=== PATIENT | male | born 1960 | race Caucasian/White ===

== ENCOUNTER 2022-01-02 09:33 | Outpatient (CLI) | payer BC, SELFPAY ==
--- NOTE | 2022-01-02 | ECG_ITS ---
[facility] Test Date: 2022-01-02 Pat Name: Colin Moya Department: Room: Gender: Male Real Time Analyst: : 1960 Requested By: Francis Elmore Order Number: [id number] Moore MD: Terese Bustillos M.D. Interpretive Statements NAME OF STUDY: LEXISCAN SESTAMIBI STRESS TEST INDICATION: AFIB/DYSPNEA, PROCEDURE: At the baseline, the EKG revealed normal sinus rhythm with some nonspecific T wave changes. The baseline heart was 62 bpm with a blood pressue of 156/91 mm of Hg Lexiscan was infused over a period of 20 seconds. A total of 0.4 milligrams of Lexiscan was infused. The stress phase was continued for a total of 5 minutes. Heart rate at the end of the stress phase was 81 bpm with a blood pressure 143/81 mm of Hg. The EKG at the peak infusion revealed no significant changes. Sestamibi was injected 20 seconds after the Lexiscan infusion. Heart rate at the end of the recovery phase was 76 bpm with a blood pressure of 131/91 mm of Hg. CONCLUSION: 1. No significant EKG changes with the LexiScan infusion 2. No LexiScan induced chest pain or cardiac arrhythmia 3. Normal blood pressure and heart rate response 4. Sestamibi/sestamibi perfusion scan pending; see separate report. Electronically Signed On 01-10-2022 7:31:38 CDT by Terese Bustillos M.D. [id number]
--- NOTE | 2022-01-02 09:56 | NMCV_ITS ---
NM andria perf SPECT r/s* [id number] Colin Moya Age: 61 Gender: M : 1960 Exam Date: 01/02/2022 09:56 Ordering Phys: Francis Elmore Technologist: MILTON Espinal Exam Location: [facility] Indications: LABILE BLOOD PRESSURE STRESS TEST Please see separate stress test report in Eph[facility]any for full findings IMAGE PROTOCOL Rest/Stress 1 Lexiscan Day Radiopharmaceutical Dose (mCi) Administration Site Administered by Rest: Tc-99m 10.8 IV MILTON Huynh Sestamibi Stress:Tc-99m 32.4 IV MILTON Huynh Sestamibi Rest: 02-Jan-2022 60 Discovery 630 Stress: 02-Jan-2022 30 Discovery 630 0.4mg Lexiscan. Images obtained in supine and prone position. SPECT RESULTS Technical Quality: Excellent Raw Data Analysis: Normal Image Corrections: No attenuation or motion correction applied Summed Stress Score: 1 Summed Rest Score: 1 Summed Difference Score: 0 PERFUSION FINDINGS Small area of slightly decreased tracer uptake was noted in the mid anteroseptal region. No significant reversibility was noted in this area. FUNCTIONAL RESULTS (calculated via Gated SPECT) Stress Image LV EF (%): 65 Stress EDV (mL):153 TID: 1.05 Stress ESV (mL):53 FUNCTIONAL FINDINGS: Segmental wall motion analysis revealing no gross wall motion abnormalities IMPRESSIONS 1. Small area of slightly decreased persistent tracer uptake in the mid anteroseptal region suggestive of medical scarring versus atresia artifact. 2. Normal left ventricular ejection fraction of 65%. 3. LV wall motion analysis revealing no gross wall motion abnormalities. 4. Normal LV volume. Low probability for coronary ischemia, based on the above findings Dr Terese Bustillos MD [facility] (Electronically Signed) Final Date: 02 January 2022 17:45 S
[2022-01-02 10:32] VITALS: BMI 33.5
[2022-01-02] MEDS: regadenoson 0.4 Mg/5 ml Syringe IVP (11:55)
[2022-01-02 12:23] VITALS: BP 158/87; PULSE 76
== END 2022-01-02 09:34 | disposition home or self-care (01) ==
PROVIDERS: PCP Family Medicine; Visit Provider Family Medicine
DX: I48.91 Unspecified atrial fibrillation (principal); R06.09 Other forms of dyspnea; R94.39 Abnormal result of other cardiovascular function study
CPT/HCPCS: 78452; 93017; A9500; J2785

== ENCOUNTER → 2022-01-14 15:48 | Outpatient (BNVA) | payer BC, SELFPAY | PROVIDERS: PCP Family Medicine; Visit Provider Internal Medicine Cardiovascular Disease | DX: I48.0 Paroxysmal atrial fibrillation (principal); R06.00 Dyspnea, unspecified; R07.89 Other chest pain; R55 Syncope and collapse; E78.5 Hyperlipidemia, unspecified | CPT/HCPCS: 80048; 85025 ==

== ENCOUNTER 2022-03-09 16:11 | Observation (INO) | payer BC, SELFPAY ==
[2022-03-09] VITALS (36 sets, daily range): BP systolic 103–158; BP diastolic 79–116; PULSE 88–163; RESP 16–34; TEMP 36.8–37.4; O2SAT 84–95
--- NOTE | 2022-03-09 16:26 | ECG_ITS ---
[facility] Test Date: 2022-03-09 Pat Name: Colin Moya Department: Room: Gender: Male Tube Splicer: : 1960 Requested By: Antelmo Tinoco Order Number: [id number] Moore MD: Terese Bustillos M.D. Measurements Intervals [place] Rate: 141 P: 0 IA: 0 QRS: 67 QRSD: 117 T: 58 QT: 328 QTc: 503 Interpretive Statements ATRIAL FIBRILLATION WITH RAPID VENTRICULAR RESPONSE MODERATE INTRAVENTRICULAR CONDUCTION DELAY [110+ ms QRS DURATION] ABNORMAL RHYTHM ECG INTERPRETATION BASED ON A DEFAULT AGE OF 40 YEARS No previous ECG available for comparison Electronically Signed On 03-09-2022 20:20:05 INSPECTOR GENERAL by Terese Bustillos M.D. [id number] f
--- NOTE | 2022-03-09 16:41 | XRR_ITS ---
PROCEDURE INFORMATION: Exam: XR Chest Exam date and time: 03/09/2022 4:49 PM Age: 62 years old Clinical indication: Angina; Additional info: Cp TECHNIQUE: Imaging protocol: Radiologic exam of the chest. Views: 1 view. COMPARISON: No relevant prior studies available. FINDINGS: Lungs: There is vascular congestion in the right perihilar region. Low lung volumes are seen No consolidation. Pleural spaces: Unremarkable. No pleural effusion. No pneumothorax. Heart/Mediastinum: Unremarkable. No cardiomegaly. Bones/joints: Unremarkable. XR/XR chest 1V portable [id number] IMPRESSION: No acute findings.
--- NOTE | 2022-03-09 16:43 | W.ED.CHESTPA ---
Documented by User: Antelmo Tinoco DO 03/09/22 17:56 HPI - Chest Pain General: Chief Complaint: Chest Pain Stated Complaint: SOB, chest pressure Time Seen by Provider: 03/09/22 16:31 Source: patient and family Mode of arrival: ambulatory Limitations: no limitations History of Present Illness: This patient presents to the emergency department because of palpitations with chest pressure is been present for several days. He states he has a known history of atrial fibrillation and has been taking his medication faithfully but is had influenza about a week or more ago prior to his onset of his current symptoms he thinks may have triggered his episodes he is experiencing now. He has been taking his amlodipine atenolol and apixaban as prescribed. He has no known history of cardiovascular disease other than atrial fibrillation. Never had a heart attack, heart failure etc. He does chew tobacco and occasionally drinks alcohol. No other significant past medical history. He is not having currently had any fevers or productive cough etc. His symptoms exacerbate his feeling fatigued and short of breath with greater than normal activity. Associated symptoms: Reports dyspnea and palpitations; Deny abdominal pain, fever(s), nausea, syncope or vomiting Review of Systems Const: Denies: fever(s) or chills Eyes: Denies: change in vision ENMT: Denies: odynophagia, nasal discharge or nasal congestion Card: Reports: palpitations and irregular heart rhythm; Denies: syncope or pre-syncope Resp: Reports: dyspnea; Denies: productive cough or non-productive cough GI: Denies: abdominal pain, nausea or vomiting : Denies: flank pain, difficulty urinating or dysuria Musc: Denies: neck pain, back pain or extremity pain Skin/Breast: Denies: rash Neuro: Denies: headache(s), numbness in extremities or weakness in extremities Psych: Denies: anxiety Endo: Denies: polyuria or polydipsia PFSH ED PFSH: Medical History Allergic rhinitis Chest discomfort Dizziness Dyspnea Exercise intolerance Hyperlipidemia Hypertension Labile blood pressure GIA on CPAP Paroxysmal atrial fibrillation Postherpetic neuralgia Shingles SOBOE (shortness of breath on exertion) Tobacco use Surgical History No history of previous surgery Family History Father CAD (coronary artery disease) Stroke, Onset Age: 35 Grandmother Cancer Mother Stroke Sister Stroke Denies family history of Diabetes Clotting disorder Dementia Chronic kidney disease (CKD) Suicide Anesthesia complication Bleeding disorder Lung disease Social History Smoking and tobacco status: current every day smoker (smokeless tobacco) smokeless tobacco Alcohol intake: current Alcohol intake frequency: few times a month Physical Exam Narrative: EXAM NARRATIVE: He is alert and comfortable in no acute distress answers questions in a goal-directed fashion. Const: COMMON NORMALS: no acute distress, average body habitus and patient oriented x3 GENERAL APPEARANCE: cooperative and comfortable HENMT: COMMON NORMALS: normocephalic, Normal nasal mucous membranes and turbinates present, moist oral mucous membranes and oropharynx normal HEAD & SCALP: normocephalic NOSE: Normal nasal mucous membranes and turbinates present Eye: COMMON NORMALS: Equal, round and reactive pupils present, EOMs intact bilaterally and conjunctivae normal CONJUNCTIVA: Yes conjunctivae normal PUPIL: Yes Equal, round and reactive pupils present Neck/C-Spine: COMMON NORMALS: full ROM, no lymphadenopathy, Thyroid normal and No carotid bruits THYROID: Thyroid normal Chest: COMMONS NORMALS: normal inspection of the chest and normal palpation of entire chest wall Resp: COMMON NORMALS: normal respiratory effort, No use of accessory muscles and clear to auscultation bilaterally AUSCULTATION: clear to auscultation bilaterally Cardio: COMMON NORMALS: No murmurs present (Cardio) and Peripheral pulses 2+ throughout RATE: tachycardic RHYTHM: abnormal rhythm irregularly irregular PERIPHERAL PULSES: Peripheral pulses 2+ throughout GI: COMMON NORMALS: Normal to inspection, nondistended, normoactive bowel sounds present, Soft to palpation and non-tender PALPATION: Yes Soft to palpation : COMMON NORMALS: Yes no CVA tenderness BLADDER/KIDNEY EXAM: Yes no CVA tenderness Back/Pelvis: COMMON NORMALS: no CVA tenderness, thoracic and lumbar spine normal to inspection, no thoracic nor lumbar tenderness, thoraco-lumbar ROM normal and straight leg raise negative bilaterally Extremity: COMMON NORMALS: normal to inspection, full ROM, capillary refill normal, no calf tenderness and no pedal edema Neuro: COMMON NORMALS: patient oriented x3, moves all extremities, no focal motor deficits, no sensory deficits noted and gait normal Psych: COMMON NORMALS: mental status grossly normal Skin: COMMON NORMALS: no rashes or lesions noted, no wounds and turgor normal GENERAL SKIN EXAM: no rashes or lesions noted and turgor normal Course Reevaluation(s): Reevaluation #1: Patient was given magnesium followed by diltiazem which achieve better rate control. Still awaiting other ancillary studies. Has evidence of mild pulmonary congestion on chest x-ray likely related to his continued atrial fibrillation however BNP and other ancillary studies still pending. Will be checked out to the overnight emergency department physician for further evaluation and disposition. Time: 17:44 Vital Signs: Vital signs: Vital Signs Temperature 98.6 F 03/09/22 16:23 Pulse Rate 127 H 03/09/22 18:45 Respiratory Rate 21 H 03/09/22 18:45 Blood Pressure 150/116 03/09/22 18:45 Pulse Oximetry 84 L 03/09/22 18:45 Oxygen Delivery Me thod 03/09/22 16:23 MDM - Chest Pain Medical Decision Making Patient with a history of chronic atrial fibrillation on appropriate anticoagulation for stroke risk reduction who had a recent illness which may have precipitated a prolonged episode of rapid ventricular response. Medical Records I reviewed the patient's medical records. Lab Data 03/09/22 17:10 03/09/22 17:10 Radiology Impressions Chest X-Ray 03/09/22 16:41 IMPRESSION: No acute findings. Chest CTA 03/09/22 18:04 IMPRESSION: 1. Negative for pulmonary embolism. 2. Intrathoracic fluid overload changes. Congestive heart failure features are suspected. Right lung pneumonia cannot be excluded. Laboratory Results WBC 4.6 10^3/uL (4.0-10.0) 03/09/22 17:10 RBC 4.76 10^6/uL (4.1-5.3) 03/09/22 17:10 Hgb 14.1 g/dL (11.7-16.6) 03/09/22 17:10 Hct 41.7 % (42.0-52.0) L 03/09/22 17:10 MCV 87.6 fl (80-94) 03/09/22 17:10 MCH 29.6 pg (28.0-34.0) 03/09/22 17:10 MCHC 33.8 g/dL (30.0-36.0) 03/09/22 17:10 RDW 13.0 % (12.1-15.1) 03/09/22 17:10 Plt Count 309 10^3/cmm (130-400) 03/09/22 17:10 MPV 10.1 fL (7.4-10.4) 03/09/22 17:10 Neut % (Auto) 54.3 % 03/09/22 17:10 Lymph % (Auto) 33.0 % 03/09/22 17:10 Marion % (Auto) 8.6 % 03/09/22 17:10 Eos % (Auto) 2.4 % 03/09/22 17:10 Baso % (Auto) 1.1 % 03/09/22 17:10 Neut # (Auto) 2.51 10^3/uL (1.8-7.7) 03/09/22 17:10 Lymph # (Auto) 1.5 10^3/uL (0.8-4.8) 03/09/22 17:10 Marion # (Auto) 0.4 10^3/uL (0.2-0.9) 03/09/22 17:10 Eos # (Auto) 0.1 10^3/uL (0.0-0.8) 03/09/22 17:10 Baso # (Auto) 0.1 10^3/uL (0.0-0.1) 03/09/22 17:10 Nucleated RBC % (auto) 0 % 03/09/22 17:10 Nucleated RBCs # 0.0 /100WBC 03/09/22 17:10 D-Dimer 0.95 ug/mIFEU (0-0.59) H 03/09/22 17:10 Sodium 134 mmol/L (136-145) L 03/09/22 17:10 Potassium 3.6 mmol/L (3.5-5.1) 03/09/22 17:10 Chloride 99 mmol/L (98-107) 03/09/22 17:10 Carbon Dioxide 23 mmol/L (22-29) 03/09/22 17:10 Anion Gap 15.6 (5-19) 03/09/22 17:10 BUN 20 mg/dL (8-23) 03/09/22 17:10 Creatinine 0.9 mg/dL (0.7-1.2) 03/09/22 17:10 GFR Calculation 85.8 mL/min (90-130) L 03/09/22 17:10 Glucose 114 mg/dL (65-115) 03/09/22 17:10 Calculated Osmolality 281 mOsm/kg (285-295) L 03/09/22 17:10 Calcium 9.9 mg/dL (8.5-10.5) 03/09/22 17:10 Magnesium 1.8 mg/dL (1.7-2.3) 03/09/22 17:10 Total Bilirubin 0.9 mg/dL (0.15-1.2) 03/09/22 17:10 AST 22 U/L (0-40) 03/09/22 17:10 ALT 36 U/L (0-41) 03/09/22 17:10 Alkaline Phosphatase 100 U/L (40-130) 03/09/22 17:10 Troponin T Gen 5 ng/L 7 ng/L (0-15) 03/09/22 17:10 NT-Pro-B Natriuret Pep 4198 pg/mL (0-125) H 03/09/22 17:10 Total Protein 7.1 g/dL (6.6-8.7) 03/09/22 17:10 Albumin 4.2 g/dL (3.5-5.2) 03/09/22 17:10 Globulin 2.9 g/dL (1.3-4.6) 03/09/22 17:10 TSH 1.66 uIU/mL (0.27-4.20) 03/09/22 17:10 EKG Data EKG 1: I personally reviewed and interpreted this EKG as follows: Interpretation: Contemporaneous EKG review reveals a ventricular rate of 141 bpm. Consistent with atrial fibrillation with rapid ventricular response. No abnormal ST-T wave segments noted at this time. Discharge Plan Discharge Patient Disposition: Admitted As Inpatient Clinical Impression: Atrial fibrillation with rapid ventricular response, Acute exacerbation of CHF (congestive heart failure) Condition: Stable Coding Level of Care Code ED Offset Duplicating Machine Operator for Chg Fwd Exam Comprehensive Documented by User: Anita Sena MD 03/09/22 20:07 HPI - Chest Pain General: Chief Complaint: Chest Pain Stated Complaint: SOB, chest pressure Time Seen by Provider: 03/09/22 16:31 PFS ED PFSH: Medical History Allergic rhinitis Chest discomfort Dizziness Dyspnea Exercise intolerance Hyperlipidemia Hypertension Labile blood pressure GIA on CPAP Paroxysmal atrial fibrillation Postherpetic neuralgia Shingles SOBOE (shortness of breath on exertion) Tobacco use Surgical History No history of previous surgery Family History Father CAD (coronary artery disease) Stroke, Onset Age: 35 Grandmother Cancer Mother Stroke Sister Stroke Denies family history of Diabetes Clotting disorder Dementia Chronic kidney disease (CKD) Suicide Anesthesia complication Bleeding disorder Lung disease Social History Smoking and tobacco status: current every day smoker (smokeless tobacco) smokeless tobacco Alcohol intake: current Alcohol intake frequency: few times a month Course Vital Signs: Vital signs: Vital Signs Temperature 98.6 F 03/09/22 16:23 Pulse Rate 127 H 03/09/22 18:45 Respiratory Rate 21 H 03/09/22 18:45 Blood Pressure 150/116 03/09/22 18:45 Pulse Oximetry 84 L 03/09/22 18:45 Oxygen Delivery Me thod 03/09/22 16:23 MDM - Chest Pain Medical Decision Making Patient with a history of chronic atrial fibrillation on appropriate anticoagulation for stroke risk reduction who had a recent illness which may have precipitated a prolonged episode of rapid ventricular response. Patient presents here with dyspnea he is in congestive heart failure he has been hypoxic here he is also in A. fib with RVR his heart rate went back up in the 140s start him on a Cardizem drip spoke to hospitalist will admit this time. Lab Data 03/09/22 17:10 03/09/22 17:10 Radiology Impressions Chest X-Ray 03/09/22 16:41 IMPRESSION: No acute findings. Chest CTA 03/09/22 18:04 IMPRESSION: 1. Negative for pulmonary embolism. 2. Intrathoracic fluid overload changes. Congestive heart failure features are suspected. Right lung pneumonia cannot be excluded. Laboratory Results WBC 4.6 10^3/uL (4.0-10.0) 03/09/22 17:10 RBC 4.76 10^6/uL (4.1-5.3) 03/09/22 17:10 Hgb 14.1 g/dL (11.7-16.6) 03/09/22 17:10 Hct 41.7 % (42.0-52.0) L 03/09/22 17:10 MCV 87.6 fl (80-94) 03/09/22 17:10 MCH 29.6 pg (28.0-34.0) 03/09/22 17:10 MCHC 33.8 g/dL (30.0-36.0) 03/09/22 17:10 RDW 13.0 % (12.1-15.1) 03/09/22 17:10 Plt Count 309 10^3/cmm (130-400) 03/09/22 17:10 MPV 10.1 fL (7.4-10.4) 03/09/22 17:10 Neut % (Auto) 54.3 % 03/09/22 17:10 Lymph % (Auto) 33.0 % 03/09/22 17:10 Marion % (Auto) 8.6 % 03/09/22 17:10 Eos % (Auto) 2.4 % 03/09/22 17:10 Baso % (Auto) 1.1 % 03/09/22 17:10 Neut # (Auto) 2.51 10^3/uL (1.8-7.7) 03/09/22 17:10 Lymph # (Auto) 1.5 10^3/uL (0.8-4.8) 03/09/22 17:10 Marion # (Auto) 0.4 10^3/uL (0.2-0.9) 03/09/22 17:10 Eos # (Auto) 0.1 10^3/uL (0.0-0.8) 03/09/22 17:10 Baso # (Auto) 0.1 10^3/uL (0.0-0.1) 03/09/22 17:10 Nucleated RBC % (auto) 0 % 03/09/22 17:10 Nucleated RBCs # 0.0 /100WBC 03/09/22 17:10 D-Dimer 0.95 ug/mIFEU (0-0.59) H 03/09/22 17:10 Sodium 134 mmol/L (136-145) L 03/09/22 17:10 Potassium 3.6 mmol/L (3.5-5.1) 03/09/22 17:10 Chloride 99 mmol/L (98-107) 03/09/22 17:10 Carbon Dioxide 23 mmol/L (22-29) 03/09/22 17:10 Anion Gap 15.6 (5-19) 03/09/22 17:10 BUN 20 mg/dL (8-23) 03/09/22 17:10 Creatinine 0.9 mg/dL (0.7-1.2) 03/09/22 17:10 GFR Calculation 85.8 mL/min (90-130) L 03/09/22 17:10 Glucose 114 mg/dL (65-115) 03/09/22 17:10 Calculated Osmolality 281 mOsm/kg (285-295) L 03/09/22 17:10 Calcium 9.9 mg/dL (8.5-10.5) 03/09/22 17:10 Magnesium 1.8 mg/dL (1.7-2.3) 03/09/22 17:10 Total Bilirubin 0.9 mg/dL (0.15-1.2) 03/09/22 17:10 AST 22 U/L (0-40) 03/09/22 17:10 ALT 36 U/L (0-41) 03/09/22 17:10 Alkaline Phosphatase 100 U/L (40-130) 03/09/22 17:10 Troponin T Gen 5 ng/L 7 ng/L (0-15) 03/09/22 17:10 NT-Pro-B Natriuret Pep 4198 pg/mL (0-125) H 03/09/22 17:10 Total Protein 7.1 g/dL (6.6-8.7) 03/09/22 17:10 Albumin 4.2 g/dL (3.5-5.2) 03/09/22 17:10 Globulin 2.9 g/dL (1.3-4.6) 03/09/22 17:10 TSH 1.66 uIU/mL (0.27-4.20) 03/09/22 17:10 Critical Care Time Critical Care Time: Critical Care Time: Yes Total Critical Care Time: 45 Attestation: The high probability of a clinically significant, sudden or life threatening deterioration of the patient's respsystem(s) required my full and direct attention, intervention and personal management. The critical care time is as shown. This time is in addition to time spent performing any reported procedures but includes the following: [x] Data and vital sign review and interpretation [x] Patient assessment, examination and intervention [x] Documentation [x] Medication orders and management Discharge Plan Discharge Patient Disposition: Admitted As Inpatient Clinical Impression: Atrial fibrillation with rapid ventricular response, Acute exacerbation of CHF (congestive heart failure) Condition: Stable Coding Level of Care Code ED Offset Duplicating Machine Operator for [place] Exam Comprehensive
[2022-03-09] MEDS: sodium chloride 0.9% 1,000 ML 999 ML IV (17:17)
[2022-03-09] MEDS: magnesium sulfate premix 2 GM/50 ML PIGGYBACK IV (17:17)
[2022-03-09 17:28] LABS: Basophils # 0.1 10^3/uL (0.0-0.1); Basophils % 1.1 %; Eosinophils # 0.1 10^3/uL (0.0-0.8); Eosinophils % 2.4 %; Hematocrit 41.7 % (42.0-52.0); Hemoglobin 14.1 g/dL (11.7-16.6); Lymphocytes # 1.5 10^3/uL (0.8-4.8); Mean Corpuscular HGB Conc 33.8 g/dL (30.0-36.0); Mean Corpuscular Hemoglobin 29.6 pg (28.0-34.0); Mean Corpuscular Volume 87.6 fl (80-94); Mean Platelet Volume 10.1 fL (7.4-10.4); Monocytes # 0.4 10^3/uL (0.2-0.9); Monocytes % 8.6 %; Neutrophils # 2.51 10^3/uL (1.8-7.7); Neutrophils % 54.3 %; Nucleated Red Blood Cells % 0 %; Platelet Count 309 10^3/cmm (130-400); Red Blood Count 4.76 10^6/uL (4.1-5.3); White Blood Count 4.6 10^3/uL (4.0-10.0)
[2022-03-09] MEDS: calcium gluconate 0.9% NaCL 1 GM/50 ML PREMIX IV (17:35)
[2022-03-09] MEDS: dilTIAZem 5 mg/mL SDV 5 mL 20 MG IVP (17:35)
[2022-03-09 17:49] LABS: D Dimer 0.95 ug/mIFEU (0-0.59)
[2022-03-09 17:56] LABS: Troponin T (5th) Once 7 ng/L (0-15)
--- NOTE | 2022-03-09 18:04 | CTR_ITS ---
PROCEDURE INFORMATION: Exam: CTA Chest With Contrast Exam date and time: 03/09/2022 6:57 PM Age: 62 years old Clinical indication: Shortness of breath; Additional info: SOB TECHNIQUE: Imaging protocol: Computed tomographic angiography of the chest with contrast. 3D rendering (Not supervised by radiologist): MIP and/or 3D reconstructed images were created by the technologist. Radiation optimization: All CT scans at this facility use at least one of these dose optimization techniques: automated exposure control; mA and/or kV adjustment per patient size (includes targeted exams where dose is matched to clinical indication); or iterative reconstruction. Contrast material: OMNI 350; Contrast volume: 100 ml; Contrast route: INTRAVENOUS (IV); COMPARISON: CR (CHEST, ) 03/09/2022 4:49 PM RADIATION DOSE METRICS: Total DLP (mGy-cm): 588.01 FINDINGS: Pulmonary arteries: Normal. No pulmonary emboli. Aorta: Unremarkable. No aortic aneurysm. No aortic dissection. Lungs: Scattered ground-glass pulmonary opacities. Septal thickening. Bronchial wall thickening. Negative for airway obstruction. Central opacities in the right lung. Lower lobe compressive atelectasis. Pleural spaces: Large volume pleural effusions. Negative for pneumothorax. Heart: Mildly dilated cardiac chambers. Negative for pericardial effusion. Lymph nodes: Unremarkable. No enlarged lymph nodes. Bones/joints: Unremarkable. No acute fracture. Soft tissues: Unremarkable. CT/CT angio chest PE protcl [id number] IMPRESSION: 1. Negative for pulmonary embolism. 2. Intrathoracic fluid overload changes. Congestive heart failure features are suspected. Right lung pneumonia cannot be excluded.
[2022-03-09 18:11] LABS: Alanine Aminotransferase 36 U/L (0-41); Albumin Level 4.2 g/dL (3.5-5.2); Alkaline Phosphatase 100 U/L (40-130); Anion Gap 15.6 (5-19); Aspartate Amino Transferase 22 U/L (0-40); Blood Urea Nitrogen 20 mg/dL (8-23); Calcium 9.9 mg/dL (8.5-10.5); Carbon Dioxide 23 mmol/L (22-29); Chloride 99 mmol/L (98-107); Globulin 2.9 g/dL (1.3-4.6); Glomerular Filtration Rate 85.8 mL/min (90-130); Glucose 114 mg/dL (65-115); Magnesium 1.8 mg/dL (1.7-2.3); NT Pro B Type Natriuretic Pept 4198 pg/mL (0-125); Osmolality Calculated 281 mOsm/kg (285-295); Potassium 3.6 mmol/L (3.5-5.1); Sodium 134 mmol/L (136-145); Thyroid Stimulating Hormone 1.66 uIU/mL (0.27-4.20); Total Bilirubin 0.9 mg/dL (0.15-1.2); Total Protein 7.1 g/dL (6.6-8.7)
--- NOTE | 2022-03-09 19:50 | ECG_ITS ---
[facility] Test Date: 2022-03-09 Pat Name: Colin Moya Department: Room: 112 Gender: Male Trial Court Judge: : 1960 Requested By: Anita Sena Order Number: [id number] Oscar MD: Terese Bustillos M.D. Measurements Intervals [place] Rate: 123 P: 0 OK: 0 QRS: 72 QRSD: 120 T: 70 QT: 346 QTc: 496 Interpretive Statements ATRIAL FIBRILLATION WITH RAPID VENTRICULAR RESPONSE MODERATE INTRAVENTRICULAR CONDUCTION DELAY [110+ ms QRS DURATION] ABNORMAL RHYTHM ECG Compared to ECG 03/09/2022 16:21:55 No significant changes Electronically Signed On 03-11-2022 9:21:47 CROP SUPERVISOR by Terese Bustillos M.D. [email or web address] county memorial [email or web address].[email or web address]/store/[id number]
[2022-03-09] MEDS: FUROsemide 10 mg/mL SDV 4mL 40 MG IVP (20:06)
[2022-03-09 20:11] LABS: Troponin(5th) Baseline 6 ng/L (0-15)
--- NOTE | 2022-03-09 20:28 | PM.HP ---
Providers/Chief Complaint Admitting Physician: Enrique Cleveland MD Primary Care Provider: Francis Elmore Chief Complaint: SOB, chest pressure History of Present Illness Colin Moya is a 62 year old male with a past medical history of paroxysmal atrial fibrillation, hypertension, hyperlipidemia, who presents to [facility] due to shortness of breath, chest palpitations, chest pain. Patient tells me that he has been sick for the flu, but for the last few days he has been feeling increasingly short of breath, increased shortness of breath with exertion, with chest palpitations, and chest pain. No nausea, no vomiting, no diaphoresis. No lightheadedness, dizziness. He is taking all his medications as prescribed. He does not use oxygen at home. Review of Systems Const: Denies: fever(s) Card: Reports: chest pain and palpitations Resp: Reports: dyspnea GI: Denies: abdominal pain Neuro: Denies: headache(s) Medications/Allergies Home Medications Medication Instructions Recorded Confirmed Last Taken Type atenolol 50 mg tablet 50 mg PO DAILY 12/25/21 Unknown History duloxetine 60 mg capsule,delayed 60 mg PO DAILY 12/25/21 Unknown History release fenofibrate nanocrystallized 145 145 mg PO DAILY 12/25/21 Unknown History mg tablet lisinopril 20 1 tab PO DAILY 12/25/21 Unknown History mg-hydrochlorothiazide 12.5 mg tablet pravastatin 10 mg tablet 10 mg PO DAILY 12/25/21 Unknown History amlodipine 5 mg tablet 5 mg PO DAILY in theevening #30 12/26/21 12/26/21 Unknown Rx tabs apixaban 5 mg tablet (Eliquis) 5 mg PO BID #180 tabs 01/08/22 Unknown Rx Allergies Allergy/AdvReac Type Severity Reaction Status Date / Time simvastatin Allergy Severe N/V Verified 12/26/21 08:10 PFSH Acute PFSH: Medical History Allergic rhinitis Chest discomfort Dizziness Dyspnea Exercise intolerance Hyperlipidemia Hypertension Labile blood pressure GIA on CPAP Paroxysmal atrial fibrillation Postherpetic neuralgia Shingles SOBOE (shortness of breath on exertion) Tobacco use Surgical History No history of previous surgery Family History Father CAD (coronary artery disease) Stroke, Onset Age: 35 Grandmother Cancer Mother Stroke Sister Stroke Denies family history of Diabetes Clotting disorder Dementia Chronic kidney disease (CKD) Suicide Anesthesia complication Bleeding disorder Lung disease Social History Smoking and tobacco status: current every day smoker (smokeless tobacco) smokeless tobacco Alcohol intake: current Alcohol intake frequency: few times a month Vitals/I&O/Wt Last Vital Signs Temp 98.6 F 03/09/22 16:23 Pulse 140 H 03/09/22 20:07 Resp 28 H 03/09/22 20:07 BP 139/79 03/09/22 20:07 Pulse Ox 90 03/09/22 20:07 O2 Del Method 03/09/22 20:07 O2 Flow Rate 2 03/09/22 20:07 03/09/22 03/09/22 03/09/22 06:59 14:59 22:59 Intake Total 100 / 100 Balance 100 / 100 Weight last 48 hrs Weight 107.048 kg Physical Exam Const: COMMON NORMALS: no acute distress and patient oriented x3 HENMT: COMMON NORMALS: normocephalic HEAD & SCALP: normocephalic Eye: COMMON NORMALS: Equal, round and reactive pupils present and EOMs intact bilaterally Neck/C-Spine: COMMON NORMALS: no JVD Lymph: LYMPHATIC: no lymphadenopathy noted Resp: COMMON NORMALS: normal respiratory effort, No retractions, No use of accessory muscles and clear to auscultation bilaterally AUSCULTATION: clear to auscultation bilaterally Cardio: COMMON NORMALS: S1 normal heart sound present and S2 normal heart sound present RATE: tachycardic RHYTHM: abnormal rhythm HEART SOUNDS: S1 normal heart sound present and S2 normal heart sound present GI: COMMON NORMALS: Normal to inspection, nondistended, normoactive bowel sounds present, Soft to palpation and non-tender PALPATION: Yes Soft to palpation Extremity: COMMON NORMALS: no calf tenderness and no pedal edema Neuro: COMMON NORMALS: patient oriented x3, CN's II-XII intact bilaterally, moves all extremities and no focal motor deficits Psych: COMMON NORMALS: mental status grossly normal Data 03/09/22 17:10 03/09/22 17:10 A&P Assessment and plan (1) Atrial fibrillation with rapid ventricular response: (2) Acute exacerbation of CHF (congestive heart failure): (3) Obstructive sleep apnea: Plan A. fib with RVR -Placed on Cardizem drip in the ER -Start Metroprolol 25 twice daily -Continue Eliquis -TSH within normal limits, mag slightly low at 1.8 will give 1 g mag -Cardiac echo -Serial EKGs, troponins, telemetry monitoring due to chest pain -Full code -Eliquis for DVT prophylaxis Acute systolic CHF exacerbation, Lasix 40 IV twice daily monitor urine output, monitor creatinine, monitor for shortness of breath GIA on CPAP Attestations Medical Necessity Statement*: Patient requires hospitalization, inpatient, greater than 2 midnights, for A. fib with RVR, systolic CHF exacerbation Coding Level of Care Code Acute Customer Advisor for Chg Fwd Diagnoses Atrial fibrillation with rapid ventricular response I48.91 Acute exacerbation of CHF (congestive heart failure) I50.9 Obstructive sleep apnea G47.33
[2022-03-09] MEDS: dilTIAZem 100 MG in sodium chloride 0.9% (add-van) 100 ML IV (20:50)
[2022-03-09] MEDS: apixaban 5 mg Tablet PO (22:05)
[2022-03-09] MEDS: metoprolol tartrate 25 mg Tablet PO (22:05)
[2022-03-09 22:10] LABS: Troponin 5 2HR 6 ng/L (0-15); Troponin 5 2HR Delta 0 ABS# (0-10)
[2022-03-09] MEDS: pantoprazole 40 mg SDV IVP (23:49)
[2022-03-09] MEDS: duloxetine 60 mg Capsule PO (23:53)
[2022-03-10] VITALS (39 sets, daily range): BP systolic 104–138; BP diastolic 65–104; PULSE 73–138; RESP 16–27; TEMP 36.6–37.2; O2SAT 88–93
--- NOTE | 2022-03-10 01:20 | ECG_ITS ---
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 Measurements Intervals [place] Rate: 91 P: 0 FL: 0 QRS: 92 QRSD: 122 T: 89 QT: 402 QTc: 497 Interpretive Statements ATRIAL FIBRILLATION BORDERLINE RIGHT AXIS DEVIATION [QRS AXIS > 90] MODERATE INTRAVENTRICULAR CONDUCTION DELAY [110+ ms QRS DURATION] MODERATE T-WAVE ABNORMALITY, CONSIDER ANTERIOR ISCHEMIA [-0.1+ mV T-WAVE IN V3/V4] Compared to ECG 03/09/2022 19:53:11 T-wave abnormality now present Possible ischemia now present Electronically Signed On 03-11-2022 20:39:11 DRY CELL ASSEMBLY MACHINE TENDER by Terese Bustillos M.D. [id number]
[2022-03-10] MEDS: dilTIAZem 100 MG in sodium chloride 0.9% (add-van) 100 ML 10 MG IV (03:02)
[2022-03-10 03:12] LABS: Basophils # 0.1 10^3/uL (0.0-0.1); Basophils % 0.8 %; Eosinophils # 0.2 10^3/uL (0.0-0.8); Eosinophils % 1.9 %; Hematocrit 40.3 % (42.0-52.0); Hemoglobin 13.4 g/dL (11.7-16.6); Lymphocytes # 1.6 10^3/uL (0.8-4.8); Lymphocytes % 20.6 %; Mean Corpuscular HGB Conc 33.3 g/dL (30.0-36.0); Mean Corpuscular Hemoglobin 29.9 pg (28.0-34.0); Mean Platelet Volume 10.3 fL (7.4-10.4); Monocytes # 0.6 10^3/uL (0.2-0.9); Neutrophils # 5.45 10^3/uL (1.8-7.7); Neutrophils % 68.9 %; Nucleated Red Blood Cells % 0 %; Platelet Count 339 10^3/cmm (130-400); Red Blood Count 4.48 10^6/uL (4.1-5.3); Red Cell Distribution Width 13.1 % (12.1-15.1); White Blood Count 7.9 10^3/uL (4.0-10.0)
[2022-03-10 03:42] LABS: Troponin 5 6HR 8.21 ng/L (0-15)
[2022-03-10 03:43] LABS: Anion Gap 17.6 (5-19); Blood Urea Nitrogen 17 mg/dL (8-23); Calcium 8.9 mg/dL (8.5-10.5); Carbon Dioxide 23 mmol/L (22-29); Chloride 102 mmol/L (98-107); Glucose 94 mg/dL (65-115); Osmolality Calculated 289 mOsm/kg (285-295); Potassium 3.6 mmol/L (3.5-5.1); Sodium 139 mmol/L (136-145)
[2022-03-10 03:54] LABS: Troponin 5 6HR Delta 2.21 ng/L (0-12)
[2022-03-10] MEDS: ondansetron 2 mg/ML SDV 2 mL 4 MG IVP (05:43)
[2022-03-10] MEDS: FUROsemide 10 mg/mL SDV 4mL 40 MG IVP ×2 (05:51→17:15)
[2022-03-10] MEDS: hydroCHLOROthiazide 25 mg Tablet 12.5 MG PO (08:19)
[2022-03-10] MEDS: metoprolol tartrate 25 mg Tablet PO (08:21)
[2022-03-10] MEDS: apixaban 5 mg Tablet PO ×2 (08:21→20:09)
[2022-03-10] MEDS: atorvastatin 40 mg Tablet 20 MG PO (10:35)
[2022-03-10] MEDS: lisinopril 20 mg Tablet PO (10:36)
[2022-03-10] MEDS: metoprolol tartrate 50 mg Tablet PO ×3 (11:44→20:09)
--- NOTE | 2022-03-10 17:11 | PM.PN ---
Subjective Subjective: Patient was seen and examined this morning, was seen resting comfortably in the bed, continues to be in A. fib, with heart rate around 110s, on Cardizem drip, as well as p.o. metoprolol. Medications: Medication Review Details: Generic Name Dose Route Start Last Admin Trade Name Freq PRN Reason Stop Dose Admin Apixaban 5 mg 03/09/22 21:29 03/10/22 08:21 Apixaban 5 Mg Ta blet PO 5 mg Q12H RASHAAD Administration Atorvastatin Calci um 20 mg 03/10/22 09:00 03/10/22 10:35 Atorvastatin 40 Mg Tablet PO 20 mg DAILY RASHAAD Administration Duloxetine HCl 60 mg 03/09/22 22:00 03/09/22 23:53 Duloxetine 60 Mg Capsule PO 60 mg BEDTIME RASHAAD Administration Fenofibrate 145 mg 03/10/22 09:00 03/10/22 08:21 Fenofibrate 145 Mg Tablet PO Not Given DAILY RASHAAD Furosemide 40 mg 03/10/22 06:00 03/10/22 05:51 Furosemide 10 Mg /Ml Sdv 4ml IVP 40 mg Q12H RASHAAD Administration Diltiazem HCl 100 mg/ Sodium 100 mls @ 0 mls/h r 03/09/22 20:00 03/10/22 16:53 Chloride IV 5 mg/hr .Q0M RASHAAD 5 mls/hr Titration Protocol Per Protocol Lisinopril 20 mg 03/10/22 09:00 03/10/22 10:36 Lisinopril 20 Mg Tablet PO 20 mg DAILY RASHAAD Administration Ondansetron HCl 4 mg 03/09/22 21:29 03/10/22 05:43 Ondansetron 2 Mg /Ml Sdv 2 Ml IVP 4 mg Q8H PRN Administration vomiting, or N/V if npo Pantoprazole Sodiu m 40 mg 03/09/22 21:29 03/09/22 23:49 Pantoprazole 40 Mg Sdv IVP 40 mg Q24H RASHAAD Administration Vitals/I&O/Wt Last Vital Signs Temp 97.9 F 03/10/22 06:50 Pulse 85 03/10/22 14:21 Resp 18 03/10/22 11:16 BP 123/83 03/10/22 14:21 Pulse Ox 91 03/10/22 14:21 O2 Del Method 03/10/22 14:21 O2 Flow Rate 4 03/10/22 14:21 03/10/22 03/10/22 03/10/22 06:59 14:59 22:59 Intake Total 96.500 / 1203.083 814.000 / 814.000 6.375 / 820.375 Output Total 800 / 1400 1610 / 1610 Balance -703.500 / -196.917 -796.000 / -796.000 6.375 / -789.625 Weight last 48 hrs Weight 107.048 kg Physical Exam Const: COMMON NORMALS: patient oriented x3 Resp: COMMON NORMALS: clear to auscultation bilaterally AUSCULTATION: clear to auscultation bilaterally Cardio: COMMON NORMALS: Peripheral pulses 2+ throughout PERIPHERAL PULSES: Peripheral pulses 2+ throughout OTHER: Irregularly irregular rhythm, S1-S2 variable intensity. GI: COMMON NORMALS: Normal to inspection, nondistended, normoactive bowel sounds present, Soft to palpation, non-tender, No hepatosplenomegaly present and no masses AUSCULTATION: Yes normoactive bowel sounds PALPATION: Yes Soft to palpation and Yes No hepatosplenomegaly present RECTAL EXAM: Yes deferred Extremity: COMMON NORMALS: no clubbing, cyanosis or edema and no pedal edema Neuro: COMMON NORMALS: patient oriented x3 Data 03/10/22 02:05 03/10/22 02:05 A&P Assessment and plan (1) Atrial fibrillation with rapid ventricular response: (2) Acute exacerbation of CHF (congestive heart failure): (3) Obstructive sleep apnea: Plan 62-year-old male with past medical history of paroxysmal atrial fibrillation hypertension dyslipidemia who came in with chief complaint of intermittent palpitation associated with shortness of breath, going on for the last 4 to 5 days.He was found to be in A. fib with RVR on arrival and was started on Cardizem drip as well as p.o. metoprolol. Assessment: A. fib with RVR History of paroxysmal atrial fibrillation Decompensated heart failure with reduced ejection fraction Mild-moderate mitral valve regurgitation History of hypertension History of dyslipidemia Obesity GIA on CPAP Plan: Patient has a recent nuclear stress test done as outpatient:Small area of slightly decreased persistent tracer uptake in the mid?anteroseptal region suggestive of medical scarring versus atresia artifact. 2D echo: Moderate diffuse hypokinesia of the LV apex.? LV ejection?fraction of 43%.? Mildly dilated LV cavity. Mild biatrial enlargementThickened mitral valve. Moderate mitral annular calcification. Mild-moderate mitral valve regurgitation. Thickened aortic valve.Trace tricuspid valve regurgitation. Estimated pulmonary artery peak systolic pressure of 19 mmHg TSH: Normal proBNP:4198 Troponin trend normal Continue Cardizem drip, will increase metoprolol dose to 50 twice daily. Continue Lasix 40 IV twice daily, monitor intake output charting, monitor daily weight, monitor electrolytes, monitor BMP. Continue Eliquis for anticoagulation Continue telemetry monitoring CODE STATUS: Full code DVT prophylaxis: On Eliquis Attestations Medical Necessity Statement*: Patient is to be in hospital management of decompensated heart failure, A. fib with RVR Time Spent in Patient Care: Greater than 35 minutes (>than 50% of time spent in counselling and/or direct pt care on unit). 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
[2022-03-10] MEDS: dilTIAZem 100 MG in sodium chloride 0.9% (add-van) 100 ML IV (17:21)
[2022-03-10] MEDS: FUROsemide 10 mg/mL SDV 2mL 20 MG IVP (18:58)
[2022-03-10] MEDS: potassium chloride ER 20 mEq Tablet 40 MEQ PO (18:58)
[2022-03-10] MEDS: cefTRIAXone 2,000 MG in sodium chloride 0.9% (plus) 50 ML 100 MG IV (18:59)
[2022-03-10] MEDS: duloxetine 60 mg Capsule PO (20:09)
[2022-03-10] MEDS: pantoprazole 40 mg SDV IVP (20:10)
[2022-03-10] MEDS: azithromycin 500 MG in sodium chloride 0.9% 250 ML 250 MG IV (20:10)
[2022-03-10 21:18] LABS: Adenovirus Not Detected (NOT DETECT); Chlamydia Pneumoniae Not Detected (NOT DETECT); Coronavirus 229E,HKU1,NL63,OC4 Not Detected (NOT DETECT); Human Metapneumovirus Not Detected (NOT DETECT); Human Rhinovirus/Enterovirus Not Detected (NOT DETECT); Influenza A Not Detected (NOT DETECT); Influenza A H1 Not Detected (NOT DETECT); Influenza A H1-2009 Not Detected (NOT DETECT); Influenza A H3 Not Detected (NOT DETECT); Influenza B Not Detected (NOT DETECT); Mycoplasma Pneumoniae Not Detected (NOT DETECT); Parainfluenza Virus Type 1 Not Detected (NOT DETECT); Parainfluenza Virus Type 2 Not Detected (NOT DETECT); Parainfluenza Virus Type 3 Not Detected (NOT DETECT); Parainfluenza Virus Type 4 Not Detected (NOT DETECT); Respiratory Syncytial Virus A Not Detected (NOT DETECT); Respiratory Syncytial Virus B Not Detected (NOT DETECT); SARS-COV-2 Not Detected (NOT DETECT)
--- NOTE | 2022-03-10 21:29 | USCV_ITS ---
Colin Moya Age: 62 Gender: M : 1960 Exam Date: 03/10/2022 09:50 Ordering Phys: Enrique Cleveland MD Technologist: Panfilo Burleson Exam Location: [facility] [place] Indication: sob BP: 103 / 61 HR: 102 Rhythm: Atrial fibrillation Technical Quality: Adequate MEASUREMENTS (Male / Female) Normal Values 2D ECHO LV Diastolic Diameter PLAX 5.4 cm 4.2 - 5.9 / 3.9 - 5.3 cm LV Systolic Diameter PLAX 4.5 cm IVS Diastolic Thickness 0.5 cm 0.6 - 1.0 / 0.6 - 0.9 cm IVS Systolic Thickness 0.6 cm LVPW Diastolic Thickness 1.2 cm 0.6 - 1.0 / 0.6 - 0.9 cm LVPW Systolic Thickness 1.4 cm LVOT Diameter 2.1 cm LV Ejection Fraction 2D Teich 33.9 % LV Ejection Fraction MOD 2C 42.7 % LV Ejection Fraction 2C AL 43.5 % LA Diameter 4.6 cm LA Width 4.6 cm LA Height 5.3 cm RA Width 5.3 cm RA Height 5.3 cm Aorta at Sinotubular Diameter 2.5 cm IVC Diameter 2.0 cm M-MODE Aortic Annulus Diameter 3.2 cm LA Ao Ratio MM 1.5 MV E Point Septal Separation 0.6 cm DOPPLER AV Peak Velocity 144.0 cm/s LVOT Peak Velocity 120.0 cm/s AV Area Cont Eq vti 2.7 cm squared AV Area Cont Eq pk 2.8 cm squared MV Peak Velocity 140.0 cm/s MV Area PHT 9.6 cm squared MV E' Velocity 58.0 cm/s Mitral E to MV E' Ratio 11.1 Mitral E to LV E' Lateral Ratio 11.5 Mitral E to LV E' Septal Ratio 10.6 TR Peak Velocity 197.3 cm/s TR Peak Gradient 15.6 mmHg TR Mean Velocity 150.1 cm/s TR Mean Gradient 9.6 mmHg TR Velocity Time Integral 45.9 cm Right Atrial Pressure 3.0 mmHg Pulmonary Artery Systolic Pressu 18.6 mmHg PV Peak Velocity 73.0 cm/s RV Acceleration Time 0.1 s RV Ejection Time 0.3 s RV AcT/ET 0.4 FINDINGS Left Ventricle Moderate diffuse hypokinesia of the LV apex. LV ejection fraction of 43%. Mildly dilated LV cavity Right Ventricle Normal right ventricular size and systolic function. Right Atrium Mildly increased right atrial size. Left Atrium Mildly increased left atrial size. Mitral Valve Thickened mitral valve. Moderate mitral annular calcification. Mild-moderate mitral valve regurgitation. Aortic Valve Thickened aortic valve. Tricuspid Valve No gross abnormalities noted.trace tricuspid valve regurgitation. Estimated pulmonary artery peak systolic pressure of 19 mmHg Pulmonic Valve Trace pulmonary valve regurgitation. Pericardium No pericardial effusion. Aorta Normal ascending aorta dimension. IVC Normal inferior vena cava. CONCLUSIONS Moderate diffuse hypokinesia of the LV apex. LV ejection fraction of 43%. Mildly dilated LV cavity. Mild biatrial enlargementThickened mitral valve. Moderate mitral annular calcification. Mild-moderate mitral valve regurgitation. Thickened aortic valve. Trace tricuspid valve regurgitation. Estimated pulmonary artery peak systolic pressure of 19 mmHg There is no pericardial effusion. There are no intracardiac masses. No similar previous studies are available for comparison Dr Terese Bustillos MD [facility] (Electronically Signed) Final Date: 10 March 2022 13:01 S
[2022-03-11] VITALS (167 sets, daily range): BP systolic 99–185; BP diastolic 67–93; PULSE 72–151; RESP 14–36; TEMP 35.9–36.9; O2SAT 83–97
[2022-03-11] MEDS: dilTIAZem 100 MG in sodium chloride 0.9% (add-van) 100 ML 10 MG IV (02:19)
[2022-03-11 03:42] LABS: Basophils # 0.1 10^3/uL (0.0-0.1); Basophils % 0.7 %; Eosinophils # 0.2 10^3/uL (0.0-0.8); Hemoglobin 12.7 g/dL (11.7-16.6); Lymphocytes # 1.8 10^3/uL (0.8-4.8); Mean Corpuscular HGB Conc 33.4 g/dL (30.0-36.0); Mean Corpuscular Hemoglobin 29.9 pg (28.0-34.0); Mean Corpuscular Volume 89.4 fl (80-94); Mean Platelet Volume 10.2 fL (7.4-10.4); Monocytes # 0.7 10^3/uL (0.2-0.9); Monocytes % 9.4 %; Nucleated Red Blood Cells % 0 %; Platelet Count 306 10^3/cmm (130-400); Red Blood Count 4.25 10^6/uL (4.1-5.3); Red Cell Distribution Width 13.1 % (12.1-15.1)
[2022-03-11 04:11] LABS: Anion Gap 16.2 (5-19); Blood Urea Nitrogen 22 mg/dL (8-23); Calcium 8.6 mg/dL (8.5-10.5); Carbon Dioxide 27 mmol/L (22-29); Chloride 98 mmol/L (98-107); Glomerular Filtration Rate 61.6 mL/min (90-130); Glucose 101 mg/dL (65-115); Magnesium 2.1 mg/dL (1.7-2.3); Osmolality Calculated 289 mOsm/kg (285-295); Potassium 3.2 mmol/L (3.5-5.1); Sodium 138 mmol/L (136-145)
[2022-03-11] MEDS: FUROsemide 10 mg/mL SDV 10mL 60 MG IVP ×2 (06:33→17:53)
[2022-03-11] MEDS: atorvastatin 40 mg Tablet 20 MG PO (07:31)
[2022-03-11] MEDS: lisinopril 20 mg Tablet PO (07:32)
[2022-03-11] MEDS: potassium chloride ER 20 mEq Tablet 40 MEQ PO (07:32)
[2022-03-11] MEDS: apixaban 5 mg Tablet PO ×2 (07:32→20:48)
[2022-03-11] MEDS: metoprolol tartrate 50 mg Tablet PO ×4 (07:32→21:25)
[2022-03-11] MEDS: lidocaine 1% 5 ML in potassium chloride premix 100 ML 50 ML IV (09:51)
--- NOTE | 2022-03-11 11:43 | PC.CHAP ---
Pastoral Care Encounter/Spiritual Assessment Type of Contact [] Declined band nailer visit [] Patient/Family/Request visit [] Outpatient visit [] Follow-up visit [] Physician referral [] Code/Alert [x] Routine visit [] Staff referral [] Actively dying [] Patient sleeping [] Family support [] [] Out of room [] Palliative care [] [] Receiving care in room [] Pre-surgical visit [] Trauma [] Long length of stay [] ICU visit [] Other: Relational/Emotional Strength [x] Patient feels connected with others/family/visitors/staff [] Distress [] Loneliness/isolation [] Abandonment Spirituality of Patient [x] Person of Mayuri [] Attends Scientologist of their Mayuri [x] Believes in Prayer [] Reads Bible or Oriental Orthodox materials [] There are Spiritual issues to be addressed Police Manager Interventions [x] Prayer x[x] Active listening [x] Non-anxious presence [x] Spiritual/emotional support [] Crisis/trauma care [] Spiritual counseling [] Bereavement support [] Provided bereavement packet [] Provided Bible/devotional materials [] Provided toy/stuffed animal, coloring book to patient or family member [] Provided Communion [] Anointing/[place] [] Salvation [x] Completed spiritual assessment [] Other: Impact on Illness or Injury [] Angry [] Fearful [] Anxious [] Often cries [] Exhaustion [] Unable to work [] Unable to attend restorationism [] Unable to walk/stand [] Unable to read [] Unable to drive [] Unable to eat/drink [] Unable to sleep [] Unable to be with family [] Patient intubated [] Other: Summary Time spent with patient 10 min
--- NOTE | 2022-03-11 13:30 | PC.NURSE ---
Cardizem drip Dr Minor wants to titrate cardizem drip off and stopped. Continue to monitor.
--- NOTE | 2022-03-11 15:46 | PM.PN ---
Subjective Subjective: Patient was seen and examined this morning, currently requiring 3 to 4 L supplemental oxygen, continue to be on Cardizem drip heart rate is better controlled, denied any significant shortness of breath, chest pain Cough.Decent urine output with Lasix.Hypokalemia correction has been done. Medications: Medication Review Details: Generic Name Dose Route Start Last Admin Trade Name Freq PRN Reason Stop Dose Admin Apixaban 5 mg 03/09/22 21:29 03/11/22 07:32 Apixaban 5 Mg Ta blet PO 5 mg Q12H RASHAAD Administration Atorvastatin Calci um 20 mg 03/10/22 09:00 03/11/22 07:31 Atorvastatin 40 Mg Tablet PO 20 mg DAILY RASHAAD Administration Duloxetine HCl 60 mg 03/09/22 22:00 03/10/22 20:09 Duloxetine 60 Mg Capsule PO 60 mg BEDTIME RASHAAD Administration Fenofibrate 145 mg 03/10/22 09:00 03/11/22 07:33 Fenofibrate 145 Mg Tablet PO Not Given DAILY RASHAAD Furosemide 60 mg 03/11/22 07:00 03/11/22 06:33 Furosemide 10 Mg /Ml Sdv 10ml IVP 60 mg BID RASHAAD Administration Diltiazem HCl 100 mg/ Sodium 100 mls @ 0 mls/h r 03/09/22 20:00 03/11/22 12:53 Chloride IV Infused .Q0M RASHAAD Titration Protocol Per Protocol Ceftriaxone Sodium 2,000 mg/ 50 mls @ 100 mls/ hr 03/10/22 19:00 03/10/22 20:00 Sodium Chloride IV Infused Q24H RASHAAD Infusion Protocol Azithromycin 500 m g/ Sodium 250 mls @ 250 mls /hr 03/10/22 18:00 03/10/22 21:00 Chloride IV Infused Q24H RASHAAD Infusion Protocol Lisinopril 20 mg 03/10/22 09:00 03/11/22 07:32 Lisinopril 20 Mg Tablet PO 20 mg DAILY RASHAAD Administration Metoprolol Tartrat e 50 mg 03/10/22 21:00 03/11/22 07:32 Metoprolol Tartr ate 50 Mg Tablet PO 50 mg BID@0900,2100 RASHAAD Administration Ondansetron HCl 4 mg 03/09/22 21:29 03/10/22 05:43 Ondansetron 2 Mg /Ml Sdv 2 Ml IVP 4 mg Q8H PRN Administration vomiting, or N/V if npo Pantoprazole Sodiu m 40 mg 03/09/22 21:29 03/10/22 20:10 Pantoprazole 40 Mg Sdv IVP 40 mg Q24H RASHAAD Administration Potassium Chloride 40 meq 03/11/22 09:00 03/11/22 07:32 Potassium Chlori de Er 20 Meq Table t PO 40 meq DAILY RASHAAD Administration Vitals/I&O/Wt Last Vital Signs Temp 98.5 F 03/11/22 11:09 Pulse 85 03/11/22 11:09 Resp 18 03/11/22 11:09 BP 106/79 03/11/22 11:09 Pulse Ox 90 03/11/22 11:09 O2 Del Method 03/11/22 11:09 O2 Flow Rate 4 03/11/22 07:52 03/11/22 03/11/22 03/11/22 06:59 14:59 22:59 Intake Total 84.667 / 1570.500 925.000 / 925.000 Output Total 780 / 780 Balance 84.667 / -39.500 145.000 / 145.000 Weight last 48 hrs Weight 107.048 kg Physical Exam Const: COMMON NORMALS: patient oriented x3 Resp: COMMON NORMALS: clear to auscultation bilaterally AUSCULTATION: clear to auscultation bilaterally Cardio: COMMON NORMALS: Peripheral pulses 2+ throughout PERIPHERAL PULSES: Peripheral pulses 2+ throughout OTHER: Irregularly irregular rhythm, S1-S2 variable intensity. GI: COMMON NORMALS: Normal to inspection, nondistended, normoactive bowel sounds present, Soft to palpation, non-tender, No hepatosplenomegaly present and no masses AUSCULTATION: Yes normoactive bowel sounds PALPATION: Yes Soft to palpation and Yes No hepatosplenomegaly present RECTAL EXAM: Yes deferred Extremity: COMMON NORMALS: no clubbing, cyanosis or edema and no pedal edema Neuro: COMMON NORMALS: patient oriented x3 Data 03/11/22 02:47 03/11/22 02:47 Micro: Microbiology 03/10/22 19:45 Legionella Urinary Antigen - Final Urine,Voided Bacterial Antigens - Final A&P Assessment and plan (1) Atrial fibrillation with rapid ventricular response: (2) Acute exacerbation of CHF (congestive heart failure): (3) Obstructive sleep apnea: (4) Hypertension: (5) Bilateral pleural effusion: (6) Pneumonia: Plan 62-year-old male with past medical history of paroxysmal atrial fibrillation hypertension dyslipidemia who came in with chief complaint of intermittent palpitation associated with shortness of breath, going on for the last 4 to 5 days.He was found to be in A. fib with RVR on arrival and was started on Cardizem drip as well as p.o. metoprolol. Assessment: A. fib with RVR History of paroxysmal atrial fibrillation Decompensated heart failure with reduced ejection fraction Moderate to large bilateral pleural effusion: Likely secondary to decompensated heart failure. Pneumonia Mild-moderate mitral valve regurgitation History of hypertension History of dyslipidemia Obesity GIA on CPAP Plan: Patient has a recent nuclear stress test done as outpatient:Small area of slightly decreased persistent tracer uptake in the mid?anteroseptal region suggestive of medical scarring versus atresia artifact. 2D echo: Moderate diffuse hypokinesia of the LV apex.? LV ejection?fraction of 43%.? Mildly dilated LV cavity. Mild biatrial enlargementThickened mitral valve. Moderate mitral annular calcification. Mild-moderate mitral valve regurgitation. Thickened aortic valve.Trace tricuspid valve regurgitation. Estimated pulmonary artery peak systolic pressure of 19 mmHg TSH: Normal proBNP:4198 Urine Legionella antigen: Negative Bacterial antigen panel: Negative Procalcitonin: Troponin trend normal Continue Cardizem drip, will increase metoprolol dose to 50 twice daily. Continue Lasix 60 IV twice daily, monitor intake output charting, monitor daily weight, monitor electrolytes, monitor BMP. Continue Eliquis for anticoagulation Continue telemetry monitoring CODE STATUS: Full code Plan for today: Patient continues to be on Cardizem drip: We will give additional dose of metoprolol p.o. if BP is soft, will have to give digoxin.Plan is to wean off Cardizem drip. Follow repeat a.m. chest x-ray: For evaluation of bilateral pleural effusion, patient may need diagnostic and therapeutic thoracentesis. DVT prophylaxis: On Eliquis Attestations Medical Necessity Statement*: Patient is still in hospital management A. fib with RVR. Time Spent in Patient Care: Greater than 35 minutes (>than 50% of time spent in counselling and/or direct pt care on unit). 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
[2022-03-11] MEDS: cefTRIAXone 2,000 MG in sodium chloride 0.9% (plus) 50 ML 100 MG IV (18:34)
[2022-03-11] MEDS: azithromycin 500 MG in sodium chloride 0.9% 250 ML 250 MG IV (20:45)
[2022-03-11] MEDS: duloxetine 60 mg Capsule PO (20:47)
[2022-03-11] MEDS: pantoprazole 40 mg SDV IVP (20:47)
[2022-03-12] VITALS (64 sets, daily range): BP systolic 84–133; BP diastolic 48–94; PULSE 88–126; RESP 14–25; TEMP 36.1–36.5; O2SAT 85–97
[2022-03-12 03:10] LABS: Basophils % 0.5 %; Eosinophils # 0.3 10^3/uL (0.0-0.8); Eosinophils % 4.8 %; Hemoglobin 12.7 g/dL (11.7-16.6); Lymphocytes # 1.8 10^3/uL (0.8-4.8); Lymphocytes % 28.2 %; Mean Corpuscular HGB Conc 32.6 g/dL (30.0-36.0); Mean Corpuscular Hemoglobin 29.6 pg (28.0-34.0); Mean Corpuscular Volume 90.9 fl (80-94); Mean Platelet Volume 9.9 fL (7.4-10.4); Monocytes # 0.7 10^3/uL (0.2-0.9); Monocytes % 10.6 %; Neutrophils # 3.42 10^3/uL (1.8-7.7); Neutrophils % 55.1 %; Nucleated Red Blood Cells % 0 %; Platelet Count 299 10^3/cmm (130-400); Red Blood Count 4.29 10^6/uL (4.1-5.3); Red Cell Distribution Width 13.2 % (12.1-15.1); White Blood Count 6.2 10^3/uL (4.0-10.0)
[2022-03-12 03:33] LABS: Anion Gap 16.8 (5-19); Blood Urea Nitrogen 23 mg/dL (8-23); Carbon Dioxide 29 mmol/L (22-29); Chloride 98 mmol/L (98-107); Glomerular Filtration Rate 61.6 mL/min (90-130); Glucose 114 mg/dL (65-115); Magnesium 2.2 mg/dL (1.7-2.3); Osmolality Calculated 295 mOsm/kg (285-295); Potassium 3.8 mmol/L (3.5-5.1); Sodium 140 mmol/L (136-145)
[2022-03-12 03:40] LABS: Procalcitonin 0.04 ng/mL (0-0.5)
[2022-03-12 04:02] LABS: Calcium 8.5 mg/dL (8.5-10.5)
--- NOTE | 2022-03-12 05:00 | XRR_ITS ---
PROCEDURE INFORMATION: Exam: XR Chest Exam date and time: 03/12/2022 5:15 AM Age: 62 years old Clinical indication: Condition or disease; Lung condition and disease; Pleural effusion; Other: Not specified; Additional info: Sob/pleural effusion TECHNIQUE: Imaging protocol: Radiologic exam of the chest. Views: 1 view. COMPARISON: CR (CHEST, ) 03/09/2022 4:49 PM FINDINGS: Lungs: Unremarkable. No consolidation. Pleural spaces: Unremarkable. No pleural effusion. No pneumothorax. Heart/Mediastinum: Unremarkable. No cardiomegaly. Bones/joints: Unremarkable. XR/XR chest 1V portable [id number] IMPRESSION: No acute findings.
[2022-03-12] MEDS: atorvastatin 40 mg Tablet 20 MG PO (09:05)
[2022-03-12] MEDS: fenofibrate 145 mg Tablet PO (09:07)
[2022-03-12] MEDS: potassium chloride ER 20 mEq Tablet 40 MEQ PO (09:08)
[2022-03-12] MEDS: lisinopril 20 mg Tablet PO (09:08)
[2022-03-12] MEDS: apixaban 5 mg Tablet PO ×2 (09:08→21:06)
[2022-03-12] MEDS: metoprolol tartrate 50 mg Tablet 100 MG PO ×2 (10:56→18:01)
--- NOTE | 2022-03-12 11:38 | PM.PN ---
Subjective Subjective: Patient was seen and examined this morning, continues to be in A. 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 Cardizem. A.m. chest x-ray done today: Had shown resolution of bilateral pleural effusion. Medications: Medication Review Details: Generic Name Dose Route Start Last Admin Trade Name Freq PRN Reason Stop Dose Admin Apixaban 5 mg 03/09/22 21:29 03/12/22 09:08 Apixaban 5 Mg Ta blet PO 5 mg Q12H RASHAAD Administration Atorvastatin Calci um 20 mg 03/10/22 09:00 03/12/22 09:05 Atorvastatin 40 Mg Tablet PO 20 mg DAILY RASHAAD Administration Duloxetine HCl 60 mg 03/09/22 22:00 03/11/22 20:47 Duloxetine 60 Mg Capsule PO 60 mg BEDTIME RASHAAD Administration Fenofibrate 145 mg 03/10/22 09:00 03/12/22 09:07 Fenofibrate 145 Mg Tablet PO 145 mg DAILY RASHAAD Administration Diltiazem HCl 100 mg/ Sodium 100 mls @ 0 mls/h r 03/09/22 20:00 03/11/22 12:53 Chloride IV Infused .Q0M RASHAAD Titration Protocol Per Protocol Ceftriaxone Sodium 2,000 mg/ 50 mls @ 100 mls/ hr 03/10/22 19:00 03/11/22 19:04 Sodium Chloride IV Infused Q24H RASHAAD Infusion Protocol Azithromycin 500 m g/ Sodium 250 mls @ 250 mls /hr 03/10/22 18:00 03/11/22 20:45 Chloride IV 250 mls/hr Q24H RASHAAD Administration Protocol Lisinopril 20 mg 03/10/22 09:00 03/12/22 09:08 Lisinopril 20 Mg Tablet PO 20 mg DAILY RASHAAD Administration Ondansetron HCl 4 mg 03/09/22 21:29 03/10/22 05:43 Ondansetron 2 Mg /Ml Sdv 2 Ml IVP 4 mg Q8H PRN Administration vomiting, or N/V if npo Pantoprazole Sodiu m 40 mg 03/09/22 21:29 03/11/22 20:47 Pantoprazole 40 Mg Sdv IVP 40 mg Q24H RASHAAD Administration Potassium Chloride 40 meq 03/11/22 09:00 03/12/22 09:08 Potassium Chlori de Er 20 Meq Table t PO 40 meq DAILY RASHAAD Administration Vitals/I&O/Wt Last Vital Signs Temp 96.9 F L 03/12/22 11:05 Pulse 118 H 03/12/22 11:05 Resp 23 H 03/12/22 11:05 BP 120/91 03/12/22 11:05 Pulse Ox 97 03/12/22 11:05 O2 Del Method 03/12/22 08:00 O2 Flow Rate 3 03/12/22 08:00 03/11/22 03/12/22 03/12/22 22:59 06:59 14:59 Intake Total 410 / 1335.000 100 / 1435.000 Output Total 1200 / 1980 800 / 800 Balance -790 / -645.000 100 / -545.000 -800 / -800 Physical Exam Const: COMMON NORMALS: patient oriented x3 Resp: COMMON NORMALS: clear to auscultation bilaterally AUSCULTATION: clear to auscultation bilaterally Cardio: COMMON NORMALS: Peripheral pulses 2+ throughout PERIPHERAL PULSES: Peripheral pulses 2+ throughout OTHER: Irregularly irregular rhythm, S1-S2 variable intensity. GI: COMMON NORMALS: Normal to inspection, nondistended, normoactive bowel sounds present, Soft to palpation, non-tender, No hepatosplenomegaly present and no masses AUSCULTATION: Yes normoactive bowel sounds PALPATION: Yes Soft to palpation and Yes No hepatosplenomegaly present RECTAL EXAM: Yes deferred Extremity: COMMON NORMALS: no clubbing, cyanosis or edema and no pedal edema Neuro: COMMON NORMALS: patient oriented x3 Data 03/12/22 02:40 03/12/22 02:40 Micro: Microbiology 03/10/22 19:45 Legionella Urinary Antigen - Final Urine,Voided Bacterial Antigens - Final A&P Assessment and plan (1) Atrial fibrillation with rapid ventricular response: (2) Acute exacerbation of CHF (congestive heart failure): (3) Obstructive sleep apnea: (4) Hypertension: (5) Bilateral pleural effusion: (6) Pneumonia: Plan 62-year-old male with past medical history of paroxysmal atrial fibrillation hypertension dyslipidemia who came in with chief complaint of intermittent palpitation associated with shortness of breath, going on for the last 4 to 5 days.He was found to be in A. fib with RVR on arrival and was started on Cardizem drip as well as p.o. metoprolol. Assessment: A. fib with RVR History of paroxysmal atrial fibrillation Decompensated heart failure with reduced ejection fraction Moderate to large bilateral pleural effusion: Likely secondary to decompensated heart failure. Pneumonia Mild-moderate mitral valve regurgitation History of hypertension History of dyslipidemia Obesity GIA on CPAP Plan: Patient has a recent nuclear stress test done as outpatient:Small area of slightly decreased persistent tracer uptake in the mid?anteroseptal region suggestive of medical scarring versus atresia artifact. 2D echo: Moderate diffuse hypokinesia of the LV apex.? LV ejection?fraction of 43%.? Mildly dilated LV cavity. Mild biatrial enlargementThickened mitral valve. Moderate mitral annular calcification. Mild-moderate mitral valve regurgitation. Thickened aortic valve.Trace tricuspid valve regurgitation. Estimated pulmonary artery peak systolic pressure of 19 mmHg TSH: Normal proBNP:[id number] Urine Legionella antigen: Negative Bacterial antigen panel: Negative Procalcitonin: Troponin trend normal Continue Cardizem drip, will increase metoprolol dose to 50 twice daily. Continue Lasix 60 IV twice daily, monitor intake output charting, monitor daily weight, monitor electrolytes, monitor BMP. Continue Eliquis for anticoagulation Continue telemetry monitoring CODE STATUS: Full code Plan for today: Continue p.o. metoprolol, digoxin IV loading doses, if needed p.o. Cardizem. DVT prophylaxis: On Eliquis Attestations Medical Necessity Statement*: Patient is still in hospital for management of A. fib with RVR. Time Spent in Patient Care: Greater than 35 minutes (>than 50% of time spent in counselling and/or direct pt care on unit). Coding Level of Care Code Acute Sales Service Coordinator for g Fwd Exam Detailed Diagnoses Atrial fibrillation with rapid ventricular response I48.91 Acute exacerbation of CHF (congestive heart failure) I50.9 Obstructive sleep apnea G47.33 Hypertension I10 Bilateral pleural effusion J90 Pneumonia J18.9
[2022-03-12] MEDS: digoxin 250 mcg/ml INJ 2 mL 500 MCG IVP (12:12)
--- NOTE | 2022-03-12 12:38 | PC.NURSE ---
Patient at 1230 with family at bedside.
[2022-03-12] MEDS: digoxin 250 mcg/ml INJ 2 mL IVP ×2 (14:58→21:05)
[2022-03-12] MEDS: cefTRIAXone 2,000 MG in sodium chloride 0.9% (plus) 50 ML 100 MG IV (18:01)
[2022-03-12] MEDS: azithromycin 500 MG in sodium chloride 0.9% 250 ML 250 MG IV (21:01)
[2022-03-12] MEDS: pantoprazole 40 mg SDV IVP (21:06)
[2022-03-12] MEDS: dilTIAZem 30 mg Tablet PO (21:06)
[2022-03-12] MEDS: duloxetine 60 mg Capsule PO (21:06)
[2022-03-13] VITALS (17 sets, daily range): BP systolic 108–128; BP diastolic 59–89; PULSE 59–108; RESP 14–21; TEMP 36.2–37; O2SAT 89–99
[2022-03-13] MEDS: dilTIAZem 30 mg Tablet PO ×3 (01:21→20:41)
[2022-03-13 04:30] LABS: Basophils % 0.3 %; Eosinophils # 0.3 10^3/uL (0.0-0.8); Eosinophils % 4.3 %; Hematocrit 41.2 % (42.0-52.0); Hemoglobin 13.3 g/dL (11.7-16.6); Lymphocytes # 1.2 10^3/uL (0.8-4.8); Mean Corpuscular HGB Conc 32.3 g/dL (30.0-36.0); Mean Corpuscular Hemoglobin 28.9 pg (28.0-34.0); Mean Corpuscular Volume 89.6 fl (80-94); Monocytes # 0.6 10^3/uL (0.2-0.9); Monocytes % 9.6 %; Neutrophils # 4.32 10^3/uL (1.8-7.7); Neutrophils % 66.2 %; Nucleated Red Blood Cells % 0 %; Platelet Count 306 10^3/cmm (130-400); Red Cell Distribution Width 12.8 % (12.1-15.1); White Blood Count 6.5 10^3/uL (4.0-10.0)
[2022-03-13 04:49] LABS: Blood Urea Nitrogen 20 mg/dL (8-23); Calcium 8.5 mg/dL (8.5-10.5); Carbon Dioxide 27 mmol/L (22-29); Chloride 102 mmol/L (98-107); Glucose 92 mg/dL (65-115); Magnesium 2.2 mg/dL (1.7-2.3); Osmolality Calculated 292 mOsm/kg (285-295); Sodium 140 mmol/L (136-145)
[2022-03-13 04:57] LABS: Anion Gap 14.8 (5-19); Potassium 3.8 mmol/L (3.5-5.1)
[2022-03-13] MEDS: FUROsemide 10 mg/mL SDV 4mL 40 MG IVP (06:10)
--- NOTE | 2022-03-13 07:51 | PC.NURSE ---
Orders to hold lasix, cardizem, and digoxin.
[2022-03-13] MEDS: atorvastatin 40 mg Tablet 20 MG PO (08:40)
[2022-03-13] MEDS: metoprolol tartrate 50 mg Tablet 100 MG PO ×2 (08:40→20:42)
[2022-03-13] MEDS: fenofibrate 145 mg Tablet PO (08:40)
[2022-03-13] MEDS: potassium chloride ER 20 mEq Tablet 40 MEQ PO (08:41)
[2022-03-13] MEDS: apixaban 5 mg Tablet PO ×2 (08:41→20:42)
[2022-03-13] MEDS: digoxin 125 mcg Tablet PO (12:00)
--- NOTE | 2022-03-13 12:35 | PM.PN ---
Subjective Subjective: Patient was seen and examined this morning, heart rate is better controlled today, overnight lowest reading has been in 40s. Currently continue to be in A. fib. Currently he denied any significant shortness of breath, cough. Medications: Medication Review Details: Generic Name Dose Route Start Last Admin Trade Name Keily PRN Reason Stop Dose Admin Apixaban 5 mg 03/09/22 21:29 03/13/22 08:41 Apixaban 5 Mg Ta blet PO 5 mg Q12H RASHAAD Administration Atorvastatin Calci um 20 mg 03/10/22 09:00 03/13/22 08:40 Atorvastatin 40 Mg Tablet PO 20 mg DAILY RASHAAD Administration Digoxin 125 mcg 03/13/22 09:00 03/13/22 08:38 Digoxin 125 Mcg Tablet PO Not Given DAILY RASHAAD Diltiazem HCl 30 mg 03/12/22 20:00 03/13/22 08:37 Diltiazem 30 Mg Tablet PO Not Given Q6H RASHAAD Duloxetine HCl 60 mg 03/09/22 22:00 03/12/22 21:06 Duloxetine 60 Mg Capsule PO 60 mg BEDTIME RASHAAD Administration Fenofibrate 145 mg 03/10/22 09:00 03/13/22 08:40 Fenofibrate 145 Mg Tablet PO 145 mg DAILY RASHAAD Administration Diltiazem HCl 100 mg/ Sodium 100 mls @ 0 mls/h r 03/09/22 20:00 03/11/22 12:53 Chloride IV Infused .Q0M RASHAAD Titration Protocol Per Protocol Ceftriaxone Sodium 2,000 mg/ 50 mls @ 100 mls/ hr 03/10/22 19:00 03/12/22 20:53 Sodium Chloride IV Infused Q24H RASHAAD Infusion Protocol Azithromycin 500 m g/ Sodium 250 mls @ 250 mls /hr 03/10/22 18:00 03/12/22 23:16 Chloride IV Infused Q24H RASHAAD Infusion Protocol Lisinopril 20 mg 03/10/22 09:00 03/13/22 10:28 Lisinopril 20 Mg Tablet PO Not Given DAILY RASHAAD Metoprolol Tartrat e 100 mg 03/12/22 18:00 03/13/22 08:40 Metoprolol Tartr ate 50 Mg Tablet PO 100 mg BID@0900,2100 RASHAAD Administration Ondansetron HCl 4 mg 03/09/22 21:29 03/10/22 05:43 Ondansetron 2 Mg /Ml Sdv 2 Ml IVP 4 mg Q8H PRN Administration vomiting, or N/V if npo Pantoprazole Sodiu m 40 mg 03/09/22 21:29 03/12/22 21:06 Pantoprazole 40 Mg Sdv IVP 40 mg Q24H RASHAAD Administration Potassium Chloride 40 meq 03/11/22 09:00 03/13/22 08:41 Potassium Chlori de Er 20 Meq Table t PO 40 meq DAILY RASHAAD Administration Vitals/I&O/Wt Last Vital Signs Temp 98.0 F 03/13/22 11:34 Pulse 90 03/13/22 12:13 Resp 17 03/13/22 12:13 BP 128/78 03/13/22 12:13 Pulse Ox 97 03/13/22 12:13 O2 Del Method 03/13/22 09:18 O2 Flow Rate 2 03/12/22 20:00 03/12/22 03/13/22 03/13/22 22:59 06:59 14:59 Intake Total 1400 / 1400 250 / 1650 240 / 240 Output Total 600 / 1400 1050 / 2450 Balance 800 / 0 -800 / -800 240 / 240 Physical Exam Const: COMMON NORMALS: patient oriented x3 Resp: COMMON NORMALS: clear to auscultation bilaterally AUSCULTATION: clear to auscultation bilaterally Cardio: COMMON NORMALS: Peripheral pulses 2+ throughout PERIPHERAL PULSES: Peripheral pulses 2+ throughout OTHER: Irregularly irregular rhythm, S1-S2 variable intensity. GI: COMMON NORMALS: Normal to inspection, nondistended, normoactive bowel sounds present, Soft to palpation, non-tender, No hepatosplenomegaly present and no masses AUSCULTATION: Yes normoactive bowel sounds PALPATION: Yes Soft to palpation and Yes No hepatosplenomegaly present RECTAL EXAM: Yes deferred Extremity: COMMON NORMALS: no clubbing, cyanosis or edema and no pedal edema Neuro: COMMON NORMALS: patient oriented x3 Data 03/13/22 03:54 03/13/22 03:54 A&P Assessment and plan (1) Atrial fibrillation with rapid ventricular response: (2) Acute exacerbation of CHF (congestive heart failure): (3) Obstructive sleep apnea: (4) Hypertension: (5) Bilateral pleural effusion: (6) Pneumonia: Plan 62-year-old male with past medical history of paroxysmal atrial fibrillation hypertension dyslipidemia who came in with chief complaint of intermittent palpitation associated with shortness of breath, going on for the last 4 to 5 days.He was found to be in A. fib with RVR on arrival and was started on Cardizem drip as well as p.o. metoprolol. Assessment: A. fib with RVR History of paroxysmal atrial fibrillation Decompensated heart failure with reduced ejection fraction Moderate to large bilateral pleural effusion: Likely secondary to decompensated heart failure. Pneumonia Mild-moderate mitral valve regurgitation History of hypertension History of dyslipidemia Obesity GIA on CPAP Plan: Patient has a recent nuclear stress test done as outpatient:Small area of slightly decreased persistent tracer uptake in the mid?anteroseptal region suggestive of medical scarring versus atresia artifact. 2D echo: Moderate diffuse hypokinesia of the LV apex.? LV ejection?fraction of 43%.? Mildly dilated LV cavity. Mild biatrial enlargementThickened mitral valve. Moderate mitral annular calcification. Mild-moderate mitral valve regurgitation. Thickened aortic valve.Trace tricuspid valve regurgitation. Estimated pulmonary artery peak systolic pressure of 19 mmHg TSH: Normal proBNP:[id number] Urine Legionella antigen: Negative Bacterial antigen panel: Negative Procalcitonin: Normal Troponin trend normal Was on Cardizem drip. Currently on Lasix 40 IV daily monitor BMP. Continue Eliquis for anticoagulation Continue telemetry monitoring CODE STATUS: Full code Plan for today: Continue with p.o. metoprolol, p.o. Cardizem, as well as p.o. digoxin. DVT prophylaxis: On Eliquis Attestations Medical Necessity Statement*: Patient is in hospital for management of A. fib Time Spent in Patient Care: Greater than 35 minutes (>than 50% of time spent in counselling and/or direct pt care on unit). Coding Level of Care Code Acute Control Systems Engineer for g Fwd Exam Detailed Diagnoses Atrial fibrillation with rapid ventricular response I48.91 Acute exacerbation of CHF (congestive heart failure) I50.9 Obstructive sleep apnea G47.33 Hypertension I10 Bilateral pleural effusion J90 Pneumonia J18.9
[2022-03-13] MEDS: cefTRIAXone 2,000 MG in sodium chloride 0.9% (plus) 50 ML 100 MG IV (18:27)
[2022-03-13] MEDS: duloxetine 60 mg Capsule PO (20:41)
[2022-03-13] MEDS: pantoprazole 40 mg SDV IVP (20:43)
[2022-03-13] MEDS: azithromycin 500 MG in sodium chloride 0.9% 250 ML 250 MG IV (20:43)
[2022-03-14] MEDS: dilTIAZem 30 mg Tablet PO ×2 (01:38→08:39)
[2022-03-14 04:00] VITALS: BP 127/94; PULSE 91; RESP 16; TEMP 36.6; O2SAT 94
[2022-03-14 04:51] LABS: Anion Gap 14.9 (5-19); Blood Urea Nitrogen 17 mg/dL (8-23); Calcium 8.7 mg/dL (8.5-10.5); Carbon Dioxide 24 mmol/L (22-29); Chloride 103 mmol/L (98-107); Glomerular Filtration Rate 85.8 mL/min (90-130); Glucose 103 mg/dL (65-115); Osmolality Calculated 288 mOsm/kg (285-295); Potassium 3.9 mmol/L (3.5-5.1); Sodium 138 mmol/L (136-145)
[2022-03-14 05:36] VITALS: PULSE 77
[2022-03-14 08:00] VITALS: PULSE 79; O2SAT 97
[2022-03-14] MEDS: potassium chloride ER 20 mEq Tablet 40 MEQ PO (08:38)
[2022-03-14 08:39] VITALS: PULSE 97
[2022-03-14] MEDS: metoprolol tartrate 50 mg Tablet 100 MG PO (08:39)
[2022-03-14] MEDS: atorvastatin 40 mg Tablet 20 MG PO (08:39)
[2022-03-14] MEDS: fenofibrate 145 mg Tablet PO (08:39)
[2022-03-14] MEDS: digoxin 125 mcg Tablet PO (08:39)
[2022-03-14] MEDS: lisinopril 20 mg Tablet PO (08:41)
[2022-03-14] MEDS: apixaban 5 mg Tablet PO (08:44)
[2022-03-14] MEDS: FUROsemide 10 mg/mL SDV 4mL 40 MG IVP (08:57)
--- NOTE | 2022-03-14 09:49 | PM.DCS ---
Discharge Providers Date of Admission: 03/09/22 21:29 Date of Discharge: March 14, 2022 Attending Provider at Admission: Enrique Cleveland MD Attending Provider at Discharge: Quinten Minor MD Primary Care Provider: Francis Elmore Diagnoses at Discharge Discharge Diagnosis (1) Atrial fibrillation with rapid ventricular response: Status: Inactive (2) Acute exacerbation of CHF (congestive heart failure): Status: Inactive (3) Obstructive sleep apnea: Status: Inactive (4) Hypertension: Status: Inactive (5) Bilateral pleural effusion: Status: Inactive (6) Pneumonia: Status: Inactive Reason for Visit Reason for Visit: SOB, chest pressure Hospital Course Hospital Course 62-year-old male with past medical history of paroxysmal atrial fibrillation hypertension dyslipidemia who came in with chief complaint of intermittent palpitation associated with shortness of breath, going on for the last 4 to 5 days.He was found to be in A. fib with RVR on arrival and he was admitted for the management of symptomatic a.fib with rvr,during the hospital stay he was kept cardizem,metoporol later disgoxin was loaded followed by maintainnence dose, he was discharged on the above po regimen ( cardizem, metoprolol,as well as digoxin) eliquis was continued for Ac,his H/R was well controlled on the above regimen.2D echo:done during hospital stay showed: Moderate diffuse hypokinesia of the LV apex.? LV ejection?fraction of 43%.? Mildly dilated LV cavity. Mild biatrial enlargementThickened mitral valve. Moderate mitral annular calcification. Mild-moderate mitral valve regurgitation.Thickened aortic valve.Trace tricuspid valve regurgitation. Estimated pulmonary artery peak systolic pressure of 19 mmHg. patient was also managed for Decompensated heart failure with reduced ejection fraction,Moderate to large bilateral pleural effusion: Likely secondary to decompensated heart failure, possible Pneumonia, patient was kept on I.V diuresis, abxs,he was also discharged on po lasix 40 daily,no abxs was continued of discharge,he overall responded well to above medical management,he was counselled to use CPAP at night regularly which he anyway does.Patient overall responded well to above medical management and was discharged in stable condition to home. He will follow his pcp as well cardiology as outpatient. Physical Exam Const: COMMON NORMALS: patient oriented x3 Resp: COMMON NORMALS: clear to auscultation bilaterally AUSCULTATION: clear to auscultation bilaterally Cardio: COMMON NORMALS: Peripheral pulses 2+ throughout PERIPHERAL PULSES: Peripheral pulses 2+ throughout OTHER: Irregularly irregular rhythm, S1-S2 variable intensity. GI: COMMON NORMALS: Normal to inspection, nondistended, normoactive bowel sounds present, Soft to palpation, non-tender, No hepatosplenomegaly present and no masses AUSCULTATION: Yes normoactive bowel sounds PALPATION: Yes Soft to palpation and Yes No hepatosplenomegaly present RECTAL EXAM: Yes deferred Extremity: COMMON NORMALS: no clubbing, cyanosis or edema and no pedal edema Neuro: COMMON NORMALS: patient oriented x3 Discharge Data Studies Completed and Pending Completed Studies During Hospitalization Category Date Time Status CTA chest [CT angio chest PE protcl [id number]] Stat Cat Scan 03/09/22 18:04 Completed XR chest 1V portable [id number] Routine Exams 03/12/22 05:00 Completed XR chest 1V portable [id number] Stat Exams 03/09/22 16:41 Completed CV. echo complete* [id number] Routine Ultrasound 03/10/22 21:29 Completed Pending at discharge Category Date Time Status BMP [Basic Metabolic Panel] AM LABS Lab 03/15/22 04:00 Ordered BMP [Basic Metabolic Panel] AM LABS Lab 03/16/22 04:00 Ordered Sputum Culture and Gram Stain Routine Lab 03/10/22 17:40 Uncollected Radiology Impressions Chest CTA 03/09/22 18:04 IMPRESSION: 1. Negative for pulmonary embolism. 2. Intrathoracic fluid overload changes. Congestive heart failure features are suspected. Right lung pneumonia cannot be excluded. Chest X-Ray 03/12/22 05:00 IMPRESSION: No acute findings. Laboratory Results WBC 6.5 10^3/uL (4.0-10.0) 03/13/22 03:54 RBC 4.60 10^6/uL (4.1-5.3) 03/13/22 03:54 Hgb 13.3 g/dL (11.7-16.6) 03/13/22 03:54 Hct 41.2 % (42.0-52.0) L 03/13/22 03:54 MCV 89.6 fl (80-94) 03/13/22 03:54 MCH 28.9 pg (28.0-34.0) 03/13/22 03:54 MCHC 32.3 g/dL (30.0-36.0) 03/13/22 03:54 RDW 12.8 % (12.1-15.1) 03/13/22 03:54 Plt Count 306 10^3/cmm (130-400) 03/13/22 03:54 MPV 10.0 fL (7.4-10.4) 03/13/22 03:54 Neut % (Auto) 66.2 % 03/13/22 03:54 Lymph % (Auto) 19.0 % 03/13/22 03:54 Harper % (Auto) 9.6 % 03/13/22 03:54 Eos % (Auto) 4.3 % 03/13/22 03:54 Baso % (Auto) 0.3 % 03/13/22 03:54 Neut # (Auto) 4.32 10^3/uL (1.8-7.7) 03/13/22 03:54 Lymph # (Auto) 1.2 10^3/uL (0.8-4.8) 03/13/22 03:54 Harper # (Auto) 0.6 10^3/uL (0.2-0.9) 03/13/22 03:54 Eos # (Auto) 0.3 10^3/uL (0.0-0.8) 03/13/22 03:54 Baso # (Auto) 0.0 10^3/uL (0.0-0.1) 03/13/22 03:54 Nucleated RBC % (auto) 0 % 03/13/22 03:54 Nucleated RBCs # 0.0 /100WBC 03/13/22 03:54 D-Dimer 0.95 ug/mIFEU (0-0.59) H 03/09/22 17:10 Sodium 138 mmol/L (136-145) 03/14/22 04:10 Potassium 3.9 mmol/L (3.5-5.1) 03/14/22 04:10 Chloride 103 mmol/L (98-107) 03/14/22 04:10 Carbon Dioxide 24 mmol/L (22-29) 03/14/22 04:10 Anion Gap 14.9 (5-19) 03/14/22 04:10 BUN 17 mg/dL (8-23) 03/14/22 04:10 Creatinine 0.9 mg/dL (0.7-1.2) 03/14/22 04:10 GFR Calculation 85.8 mL/min (90-130) L 03/14/22 04:10 Glucose 103 mg/dL (65-115) 03/14/22 04:10 Calculated Osmolality 288 mOsm/kg (285-295) 03/14/22 04:10 Calcium 8.7 mg/dL (8.5-10.5) 03/14/22 04:10 Magnesium 2.2 mg/dL (1.7-2.3) 03/13/22 03:54 Total Bilirubin 0.9 mg/dL (0.15-1.2) 03/09/22 17:10 AST 22 U/L (0-40) 03/09/22 17:10 ALT 36 U/L (0-41) 03/09/22 17:10 Alkaline Phosphatase 100 U/L (40-130) 03/09/22 17:10 Troponin T Gen 5 ng/L 7 ng/L (0-15) 03/09/22 17:10 Troponin T Baseline 6 ng/L (0-15) 03/09/22 17:10 Troponin T 120 Minute 6 ng/L (0-15) 03/09/22 21:05 Delta Troponin T 0 ABS# (0-10) 03/09/22 21:05 Troponin T Hi Sens 6Hr 8.21 ng/L (0-15) 03/10/22 02:05 Troponin T Hi Sens 6Hr Delta 2.21 ng/L (0-12) 03/10/22 02:05 NT-Pro-B Natriuret Pep 4198 pg/mL (0-125) H 03/09/22 17:10 Total Protein 7.1 g/dL (6.6-8.7) 03/09/22 17:10 Albumin 4.2 g/dL (3.5-5.2) 03/09/22 17:10 Globulin 2.9 g/dL (1.3-4.6) 03/09/22 17:10 Procalcitonin 0.04 ng/mL (0-0.5) 03/12/22 02:40 TSH 1.66 uIU/mL (0.27-4.20) 03/09/22 17:10 Nasal Influ A H1 2009 PCR Not detected (NOT DETECT) 03/10/22 19:20 Adenovirus (PCR) Not detected (NOT DETECT) 03/10/22 19:20 C. pneumoniae DNA (PCR) Not detected (NOT DETECT) 03/10/22 19:20 Coronavirus 229E (PCR) Not detected (NOT DETECT) 03/10/22 19:20 Human Metapneumovir PCR Not detected (NOT DETECT) 03/10/22 19:20 Influenza A (H1) PCR Not detected (NOT DETECT) 03/10/22 19:20 Influenza A (H3) PCR Not detected (NOT DETECT) 03/10/22 19:20 Influenza Type A (PCR) Not detected (NOT DETECT) 03/10/22 19:20 Influenza Type B (PCR) Not detected (NOT DETECT) 03/10/22 19:20 M. pneumoniae (PCR) Not detected (NOT DETECT) 03/10/22 19:20 Parainfluenza 1 (PCR) Not detected (NOT DETECT) 03/10/22 19:20 Parainfluenza 2 (PCR) Not detected (NOT DETECT) 03/10/22 19:20 Parainfluenza 3 (PCR) Not detected (NOT DETECT) 03/10/22 19:20 Parainfluenza 4 (PCR) Not detected (NOT DETECT) 03/10/22 19:20 RSV Type A (PCR) Not detected (NOT DETECT) 03/10/22 19:20 RSV Type B (PCR) Not detected (NOT DETECT) 03/10/22 19:20 Entero/Rhino (PCR) Not detected (NOT DETECT) 03/10/22 19:20 SARS-CoV-2 (PCR) Not detected (NOT DETECT) 03/10/22 19:20 Vitals Last Vital Signs Temp 97.9 F 03/14/22 04:00 Pulse 97 03/14/22 08:39 Resp 16 03/14/22 04:00 BP 127/94 03/14/22 04:00 Pulse Ox 97 03/14/22 08:00 O2 Del Method 03/14/22 08:00 O2 Flow Rate 2 03/14/22 08:00 Discharge Plan Discharge Patient Disposition: Home Condition: Stable Prescriptions: New lisinopril 20 mg Tablet 20 mg PO DAILY 30 Days Qty: 30 3RF Lasix 40 mg tablet 40 mg PO DAILY Qty: 30 3RF Klor-Con M20 20 mEq tablet,ER particles/crystals 20 meq PO DAILY Qty: 30 3RF Cardizem CD 120 mg capsule,extended release 24hr 120 mg PO DAILY Qty: 30 3RF metoprolol succinate 100 mg tablet extended release 24 hr 100 mg PO BID Qty: 60 3RF Digox 125 mcg (0.125 mg) tablet 125 mcg PO DAILY Qty: 30 3RF Continued pravastatin 10 mg tablet 10 mg PO BEDTIME duloxetine 60 mg capsule,delayed release(DR/EC) 60 mg PO DAILY Eliquis 5 mg tablet 5 mg PO BID Qty: 180 3RF Zyrtec 10 mg Tablet 10 mg PO DAILY aspirin 81 mg Tablet,Delayed Release (Dr/Ec) 81 mg PO DAILY Discontinued atenolol 50 mg tablet 50 mg PO DAILY lisinopril-hydrochlorothiazide 20-12.5 mg tablet 1 tab PO DAILY amlodipine 5 mg tablet 5 mg PO DAILY Qty: 30 5RF Discharge Orders: Discharge Order (Routine); Ordered 03/14/22 Ordered By: Quinten Minor Referrals: Terese Bustillos MD [Physician] - 1 month Francis Elmore [Primary Care Provider] - 1 week (Dr. Elmore's office will be caling you to schedule an appointment.) Marichuy Thomas FNP [Nurse Practitioner] - 1 week ([facility] will call you qwith an appointment date and time, Please call the office if you do not hear back from them. ) Discharge Diet: Cardiac Patient Instructions: Metoprolol (By mouth), Diltiazem (By mouth), Digoxin (By mouth), Lisinopril (By mouth), Furosemide (By mouth), Potassium Chloride (By mouth), A-fib (Atrial Fibrillation) (DC), Viral Pneumonia (DC), Opioid Safety Stand Alone Forms: Work/School Release Discharge Attestations Time Spent in Discharge Care*: greater than 30 min Quality Metrics Clinical Quality Measures [ No reported AMI, CVA or VTE this stay] Coding Level of Care Code Acute Chg FW DC note Diagnoses Atrial fibrillation with rapid ventricular response I48.91 Acute exacerbation of CHF (congestive heart failure) I50.9 Obstructive sleep apnea G47.33 Hypertension I10 Bilateral pleural effusion J90 Pneumonia J18.9
[2022-03-14 12:58] VITALS: BP 131/87; PULSE 87; RESP 16; O2SAT 96
[2022-03-14 12:59] VITALS: BP 131/87; PULSE 87; RESP 16; O2SAT 96
== END 2022-03-14 13:11 | disposition home or self-care (01) ==
LOC: ER 19:58 → CSU 20:26
PROVIDERS: Emergency Medicine; Admitting Provider Family Medicine; Emergency Provider Emergency Medicine; PCP Family Medicine; Visit Provider Internal Medicine
DX: I50.9 Heart failure, unspecified (principal); G47.33 Obstructive sleep apnea (adult) (pediatric); I10 Essential (primary) hypertension; J90 Pleural effusion, not elsewhere classified; J18.9 Pneumonia, unspecified organism; I48.0 Paroxysmal atrial fibrillation; E78.5 Hyperlipidemia, unspecified; F17.290 Nicotine dependence, other tobacco product, uncomplicated
CPT/HCPCS: 36415; 71045; 71275; 80048; 80053; 83735; 83880; 84145; 84443; 84484; 85025; 85378; 86403; 87449; 87486; 87581; 87633; 93005; 93306; 94664; 96365; 96367; 99285; C9113; G0378; J0456; J0610; J0696; J1160; J1940; J2405; J3475; J3480; J3490; J7030; J7050; Q9967

== ENCOUNTER 2022-03-17 12:51 | Outpatient (CLI) | payer BC, SELFPAY ==
[2022-03-17 13:41] LABS: Digoxin 1.1 ng/mL (0.6-1.2)
[2022-03-17 13:42] LABS: Blood Urea Nitrogen 20 mg/dL (8-23); Calcium 9.4 mg/dL (8.5-10.5); Carbon Dioxide 29 mmol/L (22-29); Chloride 98 mmol/L (98-107); Glomerular Filtration Rate 68.1 mL/min (90-130); Glucose 119 mg/dL (65-115); Osmolality Calculated 290 mOsm/kg (285-295); Sodium 138 mmol/L (136-145)
[2022-03-17 13:46] LABS: Anion Gap 15.7 (5-19); Potassium 4.7 mmol/L (3.5-5.1)
== END 2022-03-17 12:52 | disposition home or self-care (01) ==
LOC: LAB 12:56
PROVIDERS: PCP Family Medicine; Referring Provider Internal Medicine Cardiovascular Disease; Visit Provider Internal Medicine
DX: I50.9 Heart failure, unspecified (principal); I48.0 Paroxysmal atrial fibrillation
CPT/HCPCS: 36415; 80048; 80162

== ENCOUNTER → 2022-04-29 12:53 | Outpatient (BNVA) | payer BC, SELFPAY | PROVIDERS: PCP Family Medicine; Visit Provider Internal Medicine Cardiovascular Disease | DX: R06.02 Shortness of breath (principal) | CPT/HCPCS: 36415; 80048; 83880 ==

== ENCOUNTER → 2022-11-04 13:24 | Outpatient (BNVA) | payer BC, SELFPAY | PROVIDERS: PCP Family Medicine; Visit Provider Internal Medicine Cardiovascular Disease | DX: R06.02 Shortness of breath (principal); I50.9 Heart failure, unspecified | CPT/HCPCS: 36415; 80048; 80162; 83880 ==

== ENCOUNTER → 2022-12-02 14:22 | Outpatient (BNVA) | payer BC, SELFPAY | PROVIDERS: PCP Family Medicine; Visit Provider Nurse Practitioner Family | DX: I50.20 Unspecified systolic (congestive) heart failure (principal) | CPT/HCPCS: 36415; 80048; 83880 ==

== ENCOUNTER 2022-12-11 11:34 | Outpatient (CLI) | payer BC, SELFPAY ==
[2022-12-11 13:05] LABS: Anion Gap 15.9 (5-19); Blood Urea Nitrogen 14 mg/dL (8-23); Carbon Dioxide 26 mmol/L (22-29); Chloride 101 mmol/L (98-107); Glucose 121 mg/dL (65-115); NT Pro B Type Natriuretic Pept 1124 pg/mL (0-125); Osmolality Calculated 290 mOsm/kg (285-295); Potassium 3.9 mmol/L (3.5-5.1); Sodium 139 mmol/L (136-145)
== END 2022-12-11 11:35 | disposition home or self-care (01) ==
PROVIDERS: PCP Family Medicine; Visit Provider Nurse Practitioner Family
DX: I50.20 Unspecified systolic (congestive) heart failure (principal)
CPT/HCPCS: 36415; 80048; 83880

== ENCOUNTER 2023-01-12 14:22 | Outpatient (CLI) | payer BC, SELFPAY ==
--- NOTE | 2023-01-12 15:15 | USCV_ITS ---
Colin Moya Age: 62 Gender: M : 1960 Exam Date: 01/12/2023 15:34 Ordering Phys: Marichuy Thomas Technologist: LISET Exam Location: [facility] [place] Indication: systolic CHF BP: 123 / 59 HR: 105 Rhythm: Atrial fibrillation Technical Quality: Adequate MEASUREMENTS (Male / Female) Normal Values 2D ECHO LV Diastolic Diameter PLAX 4.9 cm 4.2 - 5.9 / 3.9 - 5.3 cm LV Systolic Diameter PLAX 3.9 cm IVS Diastolic Thickness 1.2 cm 0.6 - 1.0 / 0.6 - 0.9 cm IVS Systolic Thickness 1.5 cm LVPW Diastolic Thickness 1.3 cm 0.6 - 1.0 / 0.6 - 0.9 cm LVPW Systolic Thickness 2.0 cm LVOT Diameter 2.2 cm LV Ejection Fraction 2D Teich 39.0 % LV Ejection Fraction MOD 2C 48.4 % LV Ejection Fraction 2C AL 47.6 % LA Diameter 4.5 cm LA Width 3.8 cm LA Height 4.7 cm RA Width 2.6 cm RA Height 5.3 cm Aorta at Sinotubular Diameter 3.1 cm IVC Diameter 1.8 cm M-MODE Aortic Annulus Diameter 3.2 cm LA Ao Ratio MM 1.4 MV E Point Septal Separation 2.6 cm FINDINGS Left Ventricle Mildly dilated LV cavity with almost akinetic septum. LV ejection fraction was around 30 to 35%, (visual) Right Ventricle Normal RV size ejection fraction Right Atrium Normal right atrial size Left Atrium Moderately increased left atrial size. Mitral Valve Thickened mitral valve. Moderate mitral annular calcification. Aortic Valve Thickened aortic valve. Tricuspid Valve No gross abnormalities noted Pulmonic Valve Pulmonic valve not well visualized. Pericardium No pericardial effusion. Aorta Normal aortic annulus size. IVC Normal inferior vena cava. CONCLUSIONS Mildly dilated LV cavity with almost akinetic septum. LV ejection fraction was around 30 to 35%, (visual). Moderately increased left atrial size. Thickened mitral valve. Moderate mitral annular calcification. Thickened aortic valve. There is no pericardial effusion. There are no intracardiac masses. Compared to the study from 03/10/2022, there is some worsening of the LV systolic function. Suboptimal endocardial delineation. Consider contrast echo to better evaluate the segmental wall motion and LV ejection fraction Dr Terese Bustillos MD FAC (Electronically Signed) Final Date: 13 January 2023 20:19 S
== END 2023-01-12 14:23 | disposition home or self-care (01) ==
LOC: RAD 14:23
PROVIDERS: PCP Family Medicine; Visit Provider Nurse Practitioner Family
DX: I50.20 Unspecified systolic (congestive) heart failure (principal); I08.0 Rheumatic disorders of both mitral and aortic valves
CPT/HCPCS: 93308

== ENCOUNTER → 2023-04-27 12:28 | Outpatient (BNVA) | payer BC, SELFPAY | PROVIDERS: PCP Family Medicine; Visit Provider Internal Medicine Cardiovascular Disease | DX: I25.5 Ischemic cardiomyopathy (principal); R06.02 Shortness of breath; I10 Essential (primary) hypertension | CPT/HCPCS: 36415; 80048; 83880 ==

== ENCOUNTER 2024-07-07 10:10 | Outpatient (CLI) | payer BC, SELFPAY ==
--- NOTE | 2024-07-07 10:00 | USCV_ITS ---
Colin Moya Age: 64 Gender: M : 1960 Exam Date: 07/07/2024 10:25 Ordering Phys: Terese Bustillos MD ([email or web address]) Technologist: Exam [place] [facility] [place]: cardiomyopathy BP: 140 / 8 HR: Rhythm: Sinus Technical Quality: Adequate MEASUREMENTS (Male / Female) Normal Values 2D ECHO LV Diastolic Diameter PLAX 5.6 cm 4.2 - 5.9 / 3.9 - 5.3 cm IVS Diastolic Thickness 0.9 cm 0.6 - 1.0 / 0.6 - 0.9 cm IVS Systolic Thickness 1.4 cm LVPW Diastolic Thickness 1.4 cm 0.6 - 1.0 / 0.6 - 0.9 cm LVPW Systolic Thickness 1.7 cm LV Ejection Fraction 2D Teich 29.9 % LV Ejection Fraction MOD 4C 15.5 % LV Ejection Fraction MOD 2C 18.7 % LV Ejection Fraction 2C AL 19.8 % LA Diameter 2.0 cm RA Systolic Volume 4C AL 44.4 ml RA Systolic Volume 4C MOD 45.2 ml IVC Diameter 1.8 cm M-MODE LA Ao Ratio MM 1.5 AV Cusp Separation MM 2.7 cm FINDINGS Left Ventricle Severe diffuse hypokinesia of the left ventricle with an ejection fraction of 20%. Moderately dilated LV cavity Right Ventricle Possibly normal RV size and ejection fraction Right Atrium Normal right atrial size. Left Atrium Severely increased left atrial size. Mitral Valve Thickened mitral valve. Moderate mitral annular calcification. Aortic Valve Minimally thickened aortic valve Tricuspid Valve No gross abnormalities noted Pulmonic Valve Pulmonic valve not well visualized. Pericardium No pericardial effusion. Aorta Normal aortic annulus size. IVC Normal inferior vena cava. CONCLUSIONS Severe diffuse hypokinesia of the left ventricle with an ejection fraction of 20%. Moderately dilated LV cavity. Severely increased left atrial size. Possibly normal RV size and ejection fraction. Thickened mitral valve. Moderate mitral annular calcification. Minimally thickened aortic valve. There is no pericardial effusion. There are no intracardiac masses. Compared to the study from 01/12/2023, the ejection fraction has significantly decreased from 30-35% to 20%. Dr Terese Bustillos MD [facility] (Electronically Signed) Final Date: 07 Jul 2024 13:48 S
== END 2024-07-07 10:11 | disposition home or self-care (01) ==
PROVIDERS: PCP Family Medicine; Visit Provider Internal Medicine Cardiovascular Disease
DX: I42.9 Cardiomyopathy, unspecified (principal); R93.1 Abnormal findings on diagnostic imaging of heart and coronary circulation; I51.7 Cardiomegaly; I34.81 Nonrheumatic mitral (valve) annulus calcification
CPT/HCPCS: 93308

== ENCOUNTER → 2024-07-22 10:26 | Outpatient (BNVA) | payer BC, SELFPAY | PROVIDERS: PCP Family Medicine; Visit Provider Nurse Practitioner Family | DX: I48.0 Paroxysmal atrial fibrillation (principal) | CPT/HCPCS: 93005 ==

== ENCOUNTER 2024-07-22 10:47 | Inpatient (IN) | payer BC, SELFPAY ==
[2024-07-22] VITALS (12 sets, daily range): BP systolic 104–140; BP diastolic 74–88; PULSE 77–136; RESP 16–33; TEMP 36.6–36.7; O2SAT 87–97; BMI 32.9; BMI 33.9
--- NOTE | 2024-07-22 10:51 | XR_ITS ---
WS: [id number] Exam: XR chest 1V portable [id number] Date/Time of Exam: 07/22/2024 11:14 AM Reason For Exam: dyspnea/cough Comparison 03/12/2022. There is interstitial infiltrate in the mid and upper left lung zone. The heart is enlarged. There is increased pulmonary vascularity. Prominent septal lines in the lateral lung zones. No pleural effusion. The mediastinum is normal in contour. Bony structures are intact. XR/XR chest 1V portable [id number] IMPRESSION: 1. Cardiac enlargement with pulmonary vascular congestion suggesting low-grade CHF. 2. Diffuse interstitial infiltrate in the mid and upper LEFT lung that could re present interstitial pneumonia or pulmonary edema.
--- NOTE | 2024-07-22 11:01 | ECG_ITS ---
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 Measurements Intervals [place] Rate: 143 P: 0 MN: 0 QRS: 107 QRSD: 128 T: -75 QT: 317 QTc: 490 Interpretive Statements ATRIAL FIBRILLATION WITH RAPID VENTRICULAR RESPONSE MODERATE INTRAVENTRICULAR CONDUCTION DELAY ST DEVIATION AND MODERATE T-WAVE ABNORMALITY, CONSIDER LATERAL ISCHEMIA [-0.1+ mV T-WAVE IN I/aVL/V5/V6] ST DEVIATION AND MODERATE T-WAVE ABNORMALITY, CONSIDER INFERIOR ISCHEMIA [-0.1+ mV T-WAVE IN II/aVF] Compared to ECG 07/22/2024 10:29:54 No significant change Electronically Signed On 07-23-2024 12:00:39 CDT by Perez Peterson M.D. [id number]
--- NOTE | 2024-07-22 11:31 | ED_ITS ---
HPI - Chest Pain 2 General: Chief Complaint: Chest Pain Stated Complaint: afib Time Seen by Provider: 07/22/24 10:49 History of Present Illness: 64-year-old male known history of severe cardiomyopathy presents emergency room with rapid heart rate shortness of breath Intermittent chest pain that began last night radiating to the epigastric area. Patient presents with O2 sats 86 to 88% with heart rate in 120s to 130s. Has documentation of deteriorating ejection fraction over the last several years most recent echocardiogram showed an ejection fraction of 20% Associated symptoms: Reports palpitations; Deny abdominal pain, dyspnea or fever(s) Related Data Home Medications ?Medication ?Instructions ?Recorded ?Confirmed duloxetine 60 mg capsule,delayed 60 mg PO DAILY 07/29/24 release apixaban 5 mg tablet (Eliquis) 5 mg PO BID@0900,2100 0 07/29/24 07/29/24 Previous Rx's ?Medication ?Instructions ?Recorded furosemide 40 mg tablet (Lasix) 40 mg PO DAILY #90 tab s 06/01/24 digoxin 125 mcg (0.125 mg) tablet 125 mcg PO DAILY #90 tabs 07/11/24 amiodarone 200 mg tablet (Pacerone) See Rx Instruction s .Route 07/26/24 .COMPLEX #60 tabs aspirin 81 mg tablet 81 mg PO DAILY 30 days #30 t abs 07/26/24 metoprolol tartrate 25 mg tablet 25 mg PO BID@0900,210 0 30 days #60 07/26/24 tabs potassium chloride 10 mEq 10 meq PO DAILY 30 days #30 tabs 07/26/24 tablet,extended release (Klor-Con) prednisone 20 mg tablet 20 mg PO BID 5 days #10 tabs 07/26/24 Allergies Allergy/AdvReac Type Severity Reaction Status Date / Time simvastatin Allergy Severe N/V Verified 07/22/24 09:46 Review of Systems 2 Const: Denies: fever(s) or chills Card: Reports: chest pain, palpitations, irregular heart rhythm, edema, swelling of feet/ankles, dyspnea on exertion and orthopnea Resp: Denies: dyspnea GI: Denies: abdominal pain : Denies: dysuria, urinary frequency or urinary urgency Musc: Denies: neck pain or back pain Skin/Breast: Denies: rash PFSH ED 2 PFSH: Medical History Atrial fibrillation with rapid ventricular response Pneumonia Bilateral pleural effusion Acute exacerbation of CHF (congestive heart failure) Obstructive sleep apnea SOBOE (shortness of breath on exertion) Postherpetic neuralgia Tobacco use Exercise intolerance Allergic rhinitis Shingles Hypertension Paroxysmal atrial fibrillation Labile blood pressure Dyspnea Hyperlipidemia GIA on CPAP Dizziness Chest discomfort Surgical History No history of previous surgery Family History Father CAD (coronary artery disease) Stroke, Onset Age: 35 Grandmother Cancer Mother Stroke Sister Stroke Denies family history of Diabetes Clotting disorder Dementia Chronic kidney disease (CKD) Suicide Anesthesia complication Bleeding disorder Lung disease Social History Smoking and tobacco/nicotine status: current every day tobacco/nicotine user (Chews tobacco) smokeless tobacco Alcohol intake: current Alcohol intake frequency: few times a month Substance/Drug Use: never Physical Exam 2 Const: COMMON NORMALS: no acute distress GENERAL APPEARANCE: cooperative and comfortable ORIENTATION/CONSCIOUSNESS: Yes awake, Yes oriented to person, Yes oriented to place and Yes oriented to time HENMT: COMMON NORMALS: normocephalic, atraumatic and hearing grossly normal bilaterally HEAD & SCALP: normocephalic and atraumatic Resp: COMMON NORMALS: normal respiratory effort, No retractions, No use of accessory muscles and clear to auscultation bilaterally AUSCULTATION: clear to auscultation bilaterally Cardio: COMMON NORMALS: No murmurs present (Cardio) RATE: tachycardic R HYTHM: abnormal rhythm irregularly irregular GI: COMMON NORMALS: Soft to palpation and No hepatosplenomegaly present A USCULTATION: Yes normoactive bowel sounds PALPATION: Yes Soft to palpation, No Tenderness to palpation present (GI), No Guarding due to palpation present (GI) and Yes No hepatosplenomegaly present Extremity: COMMON NORMALS: normal to inspection, capillary refill normal, no clubbing, cyanosis or edema, no calf tenderness and no pedal edema Neuro: SENSORIUM/ORIENTATION: Yes oriented to person, Yes oriented to place and Yes oriented to time Skin: COMMON NORMALS: no rashes or lesions noted GENERAL SKIN EXAM: no rashes or lesions noted Course 2 Vital Signs: Vital signs: Vital Signs Temperature 97.6 F 07/26/24 11:38 Pulse Rate 98 07/26/24 11:38 Respiratory Rate 20 H 07/26/24 11:38 Blood Pressure 124/94 07/26/24 12:11 Pulse Oximetry 97 07/26/24 11:38 Oxygen Delivery Me thod Room Air 07/26/24 11:38 Oxygen Flow Rate 6 07/25/24 16:46 Fraction of Inspir ed Oxygen 42 07/25/24 15:28 MDM - Chest Pain Medical Decision Making Patient presents A-fib with RVR has severe cardiomyopathy with an EF of 20%, dig level normal. Patient has improved with Cardizem drip rate is right at 100 and below. Discussed with hospitalist will admit to CSU. Patient has nonischemic cardiomyopathy and A-fib with RVR. Rate improved with Cardizem drip should improve his heart failure as well. Lab Data 07/26/24 04:46 07/26/24 04:46 Radiology Impressions Chest X-Ray 07/22/24 10:51 IMPRESSION: 1. Cardiac enlargement with pulmonary vascular congestion suggesting low-grade CHF. 2. Diffuse interstitial infiltrate in the mid and upper LEFT lung that could represent interstitial pneumonia or pulmonary edema. Laboratory Results WBC 9.26 10^3/uL (3.29-11.43) 07/22/24 11:43 RBC 4.62 10^6/uL (3.85-5.65) 07/22/24 11:43 Hgb 13.70 g/dL (11.27-16.99) 07/22/24 11:43 Hct 41.0 % (37-53) 07/22/24 11:43 MCV 88.7 fl (82-101) 07/22/24 11:43 MCH 29.7 pg (27-33) 07/22/24 11:43 MCHC 33.4 g/dL (30-55) 07/22/24 11:43 RDW 13.2 % (12.1-15.1) 07/22/24 11:43 Plt Count 317 10^3/cmm (157-399) 07/22/24 11:43 MPV 10.0 fL (7.4-10.4) 07/22/24 11:43 Neut % (Auto) 79.3 % 07/22/24 11:43 Lymph % (Auto) 12.4 % 07/22/24 11:43 [place] % (Auto) 7.1 % 07/22/24 11:43 Eos % (Auto) 0.2 % 07/22/24 11:43 Baso % (Auto) 0.5 % 07/22/24 11:43 Neut # (Auto) 7.33 10^3/uL (1.8-7.7) 07/22/24 11:43 Lymph # (Auto) 1.2 10^3/uL (0.8-4.8) 07/22/24 11:43 [place] # (Auto) 0.7 10^3/uL (0.2-0.9) 07/22/24 11:43 Eos # (Auto) 0.0 10^3/uL (0.0-0.8) 07/22/24 11:43 Baso # (Auto) 0.1 10^3/uL (0.0-0.1) 07/22/24 11:43 Nucleated RBC % (auto) 0 % 07/22/24 11:43 Nucleated RBCs # 0.0 /100WBC 07/22/24 11:43 Sodium 137 mmol/L (136-145) 07/22/24 11:43 Potassium 3.8 mmol/L (3.5-5.1) 07/22/24 11:43 Chloride 102 mmol/L (98-107) 07/22/24 11:43 Carbon Dioxide 22 mmol/L (22-29) 07/22/24 11:43 Anion Gap 16.8 (5-19) 07/22/24 11:43 BUN 13 mg/dL (8-23) 07/22/24 11:43 Creatinine 1.0 mg/dL (0.7-1.2) 07/22/24 11:43 GFR Calculation 75.5 mL/min (90-130) L 07/22/24 11:43 Glucose 114 mg/dL (65-115) 07/22/24 11:43 Calculated Osmolality 285 mOsm/kg (285-295) 07/22/24 11:43 Calcium 8.9 mg/dL (8.5-10.5) 07/22/24 11:43 Total Bilirubin 1.4 mg/dL (0.15-1.2) H 07/22/24 11:43 AST 15 U/L (0-40) 07/22/24 11:43 ALT 19 U/L (0-41) 07/22/24 11:43 Alkaline Phosphatase 96 U/L (40-130) 07/22/24 11:43 Total Protein 6.5 g/dL (6.6-8.7) L 07/22/24 11:43 Albumin 3.6 g/dL (3.5-5.2) 07/22/24 11:43 Globulin 2.9 g/dL (1.3-4.6) 07/22/24 11:43 Digoxin 0.7 ng/mL (0.6-1.2) 07/22/24 11:43 All radiology interpretation(s) finalized by discharge Discharge Plan Discharge Patient Disposition: Admitted As Inpatient Admit Provider: Montserrat Tello Clinical Impression: Paroxysmal atrial fibrillation, Acute exacerbation of CHF (congestive heart failure), Non-ischemic cardiomyopathy Condition: Stable Discharge Diet: Cardiac Discharge Activity: Resume usual activity Coding Level of Care Code ED 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
[2024-07-22 11:47] LABS: Basophils # 0.1 10^3/uL (0.0-0.1); Basophils % 0.5 %; Eosinophils % 0.2 %; Lymphocytes # 1.2 10^3/uL (0.8-4.8); Lymphocytes % 12.4 %; Mean Corpuscular HGB Conc 33.4 g/dL (30-55); Mean Corpuscular Hemoglobin 29.7 pg (27-33); Mean Corpuscular Volume 88.7 fl (82-101); Monocytes # 0.7 10^3/uL (0.2-0.9); Monocytes % 7.1 %; Neutrophils # 7.33 10^3/uL (1.8-7.7); Neutrophils % 79.3 %; Nucleated Red Blood Cells % 0 %; Platelet Count 317 10^3/cmm (157-399); Red Blood Count 4.62 10^6/uL (3.85-5.65); Red Cell Distribution Width 13.2 % (12.1-15.1); White Blood Count 9.26 10^3/uL (3.29-11.43)
[2024-07-22] MEDS: dilTIAZem 5 mg/mL SDV 5 mL 10 MG IVP (11:53)
[2024-07-22] MEDS: dilTIAZem 100 MG in sodium chloride 0.9% (add-van) 100 ML IV (11:59)
[2024-07-22 12:18] LABS: Alanine Aminotransferase 19 U/L (0-41); Albumin Level 3.6 g/dL (3.5-5.2); Alkaline Phosphatase 96 U/L (40-130); Anion Gap 16.8 (5-19); Aspartate Amino Transferase 15 U/L (0-40); Blood Urea Nitrogen 13 mg/dL (8-23); Calcium 8.9 mg/dL (8.5-10.5); Carbon Dioxide 22 mmol/L (22-29); Chloride 102 mmol/L (98-107); Creatinine Clr Calc Pharmacy 94.1103; Globulin 2.9 g/dL (1.3-4.6); Glomerular Filtration Rate 75.5 mL/min (90-130); Glucose 114 mg/dL (65-115); Osmolality Calculated 285 mOsm/kg (285-295); Potassium 3.8 mmol/L (3.5-5.1); Sodium 137 mmol/L (136-145); Total Bilirubin 1.4 mg/dL (0.15-1.2); Total Protein 6.5 g/dL (6.6-8.7)
[2024-07-22 12:19] LABS: Digoxin 0.7 ng/mL (0.6-1.2)
[2024-07-22 14:19] LABS: Bilirubin Urine 1+ (Negative); Blood Urine 2+ (Negative); Glucose Urine UA Negative (Normal); Ketones Urine Trace (Negative); Leukocyte Esterase Urine Trace (Negative); Nitrate Urine Negative (Negative); Protein Urine 1+ (Negative); Specific Gravity, Urine 1.019 (1.005-1.030); Urine Appearance Clear (CLEAR); pH Urine 5.5 (5-7)
[2024-07-22 14:25] LABS: Add Urine Microscopic? YES; Bacteria Urine None Seen /hpf; Hyaline Casts Urine 1.65 /lpf; Squamous Epithelial Cell Urine 0-5 /hpf (0-5); WBC Urine 0-5 /hpf (0-5)
[2024-07-22 15:18] LABS: Urine Color Orange (Yellow)
--- NOTE | 2024-07-22 16:37 | PC.NURSE ---
received from er via stretcher at 1600.pt is alert and awake and oriented x 4.denies pain at present.afib on monitor.rate 110-120.on cardizem drip at 15 mg/hr.oriented to room environment.instructed to notify staff for any chest pain,sob,or for any concerns at all.pt verb understanding of instructions
--- NOTE | 2024-07-22 17:05 | ECG_ITS ---
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 Measurements Intervals [place] Rate: 116 P: 0 TN: 0 QRS: -40 QRSD: 180 T: 124 QT: 360 QTc: 502 Interpretive Statements ATRIAL FIBRILLATION WITH RAPID VENTRICULAR RESPONSE LEFT BUNDLE BRANCH BLOCK Compared to ECG 07/22/2024 11:01:12 No significant change Electronically Signed On 07-23-2024 11:57:30 CDT by Perez Peterson M.D. [id number] [id number]
--- NOTE | 2024-07-22 17:12 | PM.HP ---
Providers/Chief Complaint Admitting Physician: Montserrat Tello MD Primary Care Provider: Francis Elmore Chief Complaint: afib History of Present Illness Colin Moya is a 64 year old male with a history of known nonischemic cardiomyopathy with last known ejection fraction of 20% who was recently seen by cardiology this morning and was in the process of being arranged for a LifeVest and eventually an ICD. He was noted to be in A-fib RVR along with having signs of acute on chronic CHF exacerbation and therefore was directed to come to the emergency room today. He denies any chest pain. States he has been feeling palpitations. Review of chart shows patient is currently on Cardizem 120 mg p.o. daily, digoxin 125 mcg daily. Dig level is at 0.7. Patient is unsure if he takes metoprolol. I do see metoprolol 100 mg p.o. twice daily noted on his past visits, however today it shows up as a discontinued medication. Patient is unsure if he takes metoprolol. We will need to confirm this with patient's pharmacy. At the time of this assessment patient is noted to be in A-fib with RVR with heart rate ranging between 120 to 132 bpm on Cardizem 15 mg/h continuous infusion. Chest x-ray is showing signs of volume overload with bilateral infiltrates suggestive of pulmonary edema. Review of Systems General: Reports: 10 or more systems reviewed and unremarkable except in HPI and below Const: Denies: fever(s), chills or body aches Eyes: Denies: change in vision, blurry vision or photophobia ENMT: Reports: hoarseness; Denies: throat pain, enlarged tonsils, odynophagia or nasal congestion Card: Denies: chest pain, palpitations, irregular heart rhythm, edema, swelling of feet/ankles, lightheadedness, pre-syncope, dyspnea on exertion or orthopnea Resp: Denies: dyspnea, productive cough, non-productive cough, wheezing, stridor, pain on inspiration, change in phlegm color, hemoptysis or chest congestion GI: Denies: abdominal pain, nausea, vomiting, hematemesis, coffee ground emesis, dysphagia, heartburn, diarrhea, constipation, GI cramping, change in stool character, hematochezia or melena : Denies: flank pain, dysuria, urinary frequency, urinary urgency, urinary hesitancy or hematuria Musc: Denies: neck pain, back pain, extremity pain, joint swelling, joint warmth or deformity Neuro: Denies: headache(s), numbness in extremities, weakness in extremities, sensory changes, difficulty walking, frequent falls, dizziness, vertigo, behavioral changes, Slurred speech present or seizure-like activity Psych: Denies: anxiety, depression, suicidal ideation or homicidal ideation Endo: Denies: polyuria, polydipsia, tired all the time, cold intolerance or hot flashes Dash/Lymph: Denies: easy bruising or easy bleeding Medications/Allergies Home Medications ?Medication ?Instructions ?Recorded ?Confirmed ?Last Taken ?Type duloxetine 60 mg capsule,delayed 60 mg PO DAILY 12/25/21 07/22/24 07/22/24 History release sacubitril 97 mg-valsartan 103 mg 1 tab PO BID #180 tabs 11/27/23 07/22/24 07/22/24 Rx tablet apixaban 5 mg tablet (Eliquis) See Rx Instructions .Route 12/15/23 07/22/24 07/22/24 Rx .COMPLEX #180 tabs furosemide 40 mg tablet (Lasix) 40 mg PO DAILY #90 tabs 06/01/24 07/22/24 07/22/24 Rx diltiazem HCl 120 mg 120 mg PO DAILY #90 caps 07/05/24 07/22/24 07/22/24 Rx capsule,extended release 24 hr (Cardizem CD) digoxin 125 mcg (0.125 mg) tablet 125 mcg PO DAILY #90 tabs 07/11/24 07/22/24 07/22/24 Rx Allergies Allergy/AdvReac Type Severity Reaction Status Date / Time simvastatin Allergy Severe N/V Verified 07/22/24 09:46 PFSH Acute PFSH: Medical History (Updated 07/22/24 @ 17:24 by Montserrat Tello MD) Atrial fibrillation with rapid ventricular response Pneumonia Bilateral pleural effusion Acute exacerbation of CHF (congestive heart failure) Obstructive sleep apnea SOBOE (shortness of breath on exertion) Postherpetic neuralgia Tobacco use Exercise intolerance Allergic rhinitis Shingles Hypertension Paroxysmal atrial fibrillation Labile blood pressure Dyspnea Hyperlipidemia GIA on CPAP Dizziness Chest discomfort Surgical History No history of previous surgery Family History Father CAD (coronary artery disease) Stroke, Onset Age: 35 Grandmother Cancer Mother Stroke Sister Stroke Denies family history of Diabetes Clotting disorder Dementia Chronic kidney disease (CKD) Suicide Anesthesia complication Bleeding disorder Lung disease Social History Smoking and tobacco/nicotine status: current every day tobacco/nicotine user (Chews tobacco) smokeless tobacco Alcohol intake: current Alcohol intake frequency: few times a month Substance/Drug Use: never Vitals/I&O/Wt Last Vital Signs Temp 97.8 F 07/22/24 16:24 Pulse 108 H 07/22/24 16:24 Resp 25 H 07/22/24 16:24 BP 122/86 07/22/24 16:24 Pulse Ox 92 07/22/24 16:24 O2 Del Method Nasal Cannula 07/22/24 16:24 O2 Flow Rate 4 07/22/24 14:30 07/22/24 07/22/24 07/22/24 06:59 14:59 22:59 Intake Total 24.708 / 24.708 Balance 24.708 / 24.708 Weight last 48 hrs Weight 110.223 kg Weight 107.048 kg Physical Exam Narrative: General: No acute distress, AO x3 HEENT: PERRLA, pupils bilaterally equal and reactive, pallors not present Chest: Normal vesicular breath sounds, no added sounds, equal good air entry bilaterally CVS: S1-S2 irregular, no murmurs, + tachycardia, no gallops, no rubs Abdomen: Soft, nontender, no organomegaly, bowel sounds present Neuro: No focal deficits, no facial deformity, AO x3, power 5/5 in all limbs Extremities: no LE pitting edema Data 07/22/24 11:43 07/22/24 11:43 Other data: Radiology Impressions Chest X-Ray 07/22/24 10:51 IMPRESSION: 1. Cardiac enlargement with pulmonary vascular congestion suggesting low-grade CHF. 2. Diffuse interstitial infiltrate in the mid and upper LEFT lung that could represent interstitial pneumonia or pulmonary edema. Laboratory Results WBC 9.26 10^3/uL (3.29-11.43) 07/22/24 11:43 RBC 4.62 10^6/uL (3.85-5.65) 07/22/24 11:43 Hgb 13.70 g/dL (11.27-16.99) 07/22/24 11:43 Hct 41.0 % (37-53) 07/22/24 11:43 MCV 88.7 fl (82-101) 07/22/24 11:43 MCH 29.7 pg (27-33) 07/22/24 11:43 MCHC 33.4 g/dL (30-55) 07/22/24 11:43 RDW 13.2 % (12.1-15.1) 07/22/24 11:43 Plt Count 317 10^3/cmm (157-399) 07/22/24 11:43 MPV 10.0 fL (7.4-10.4) 07/22/24 11:43 Neut % (Auto) 79.3 % 07/22/24 11:43 Lymph % (Auto) 12.4 % 07/22/24 11:43 [place] % (Auto) 7.1 % 07/22/24 11:43 Eos % (Auto) 0.2 % 07/22/24 11:43 Baso % (Auto) 0.5 % 07/22/24 11:43 Neut # (Auto) 7.33 10^3/uL (1.8-7.7) 07/22/24 11:43 Lymph # (Auto) 1.2 10^3/uL (0.8-4.8) 07/22/24 11:43 [place] # (Auto) 0.7 10^3/uL (0.2-0.9) 07/22/24 11:43 Eos # (Auto) 0.0 10^3/uL (0.0-0.8) 07/22/24 11:43 Baso # (Auto) 0.1 10^3/uL (0.0-0.1) 07/22/24 11:43 Nucleated RBC % (auto) 0 % 07/22/24 11:43 Nucleated RBCs # 0.0 /100WBC 07/22/24 11:43 Sodium 137 mmol/L (136-145) 07/22/24 11:43 Potassium 3.8 mmol/L (3.5-5.1) 07/22/24 11:43 Chloride 102 mmol/L (98-107) 07/22/24 11:43 Carbon Dioxide 22 mmol/L (22-29) 07/22/24 11:43 Anion Gap 16.8 (5-19) 07/22/24 11:43 BUN 13 mg/dL (8-23) 07/22/24 11:43 Creatinine 1.0 mg/dL (0.7-1.2) 07/22/24 11:43 GFR Calculation 75.5 mL/min (90-130) L 07/22/24 11:43 Glucose 114 mg/dL (65-115) 07/22/24 11:43 Calculated Osmolality 285 mOsm/kg (285-295) 07/22/24 11:43 Calcium 8.9 mg/dL (8.5-10.5) 07/22/24 11:43 Total Bilirubin 1.4 mg/dL (0.15-1.2) H 07/22/24 11:43 AST 15 U/L (0-40) 07/22/24 11:43 ALT 19 U/L (0-41) 07/22/24 11:43 Alkaline Phosphatase 96 U/L (40-130) 07/22/24 11:43 Total Protein 6.5 g/dL (6.6-8.7) L 07/22/24 11:43 Albumin 3.6 g/dL (3.5-5.2) 07/22/24 11:43 Globulin 2.9 g/dL (1.3-4.6) 07/22/24 11:43 Urine Color [place] (Yellow) A 07/22/24 14:14 Urine Appearance Clear (CLEAR) 07/22/24 14:14 Urine pH 5.5 (5-7) 07/22/24 14:14 Ur Specific [place] 1.019 (1.005-1.030) 07/22/24 14:14 Urine Protein 1+ (Negative) A 07/22/24 14:14 Urine Glucose (UA) Negative (Normal) 07/22/24 14:14 Urine Ketones Trace (Negative) 07/22/24 14:14 Urine Blood 2+ (Negative) A 07/22/24 14:14 Urine Nitrate Negative (Negative) 07/22/24 14:14 Urine Bilirubin 1+ (Negative) H 07/22/24 14:14 Urine Urobilinogen 1.0 mg/dL (Negative) 07/22/24 14:14 Ur Leukocyte Esterase Trace (Negative) A 07/22/24 14:14 Urine RBC 6-10 /hpf (0-2) 07/22/24 14:14 Urine WBC 0-5 /hpf (0-5) 07/22/24 14:14 Ur Squamous Epith Cells 0-5 /hpf (0-5) 07/22/24 14:14 Amorphous Sediment Not Reportable 07/22/24 14:14 Urine Bacteria None seen /hpf (NONE) 07/22/24 14:14 Hyaline Casts 1.65 /lpf 07/22/24 14:14 Digoxin 0.7 ng/mL (0.6-1.2) 07/22/24 11:43 A&P Assessment and plan (1) Atrial fibrillation with rapid ventricular response: Patient directed to come into the emergency room today after his follow-up with cardiology as outpatient due to A-fib RVR and signs of volume overload. At the time of this assessment heart rate is noted to be between 120 to 132 bpm in A-fib RVR Currently this is on Cardizem infusion at 15 mg/h Discontinue Cardizem gtt. as continues to be in persistent A-fib. Start amiodarone 150 mg IV push over 15 minutes followed by amiodarone gtt. at 1 mg/h. Continue digoxin 125 mcg p.o. daily Start metoprolol 25 mg p.o. twice daily. Jevon to confirm with pharmacy tomorrow if patient was taking metoprolol 100 mg p.o. twice daily at home. Patient himself does not recall this at this present time. Check troponin series Patient's last ischemic evaluation dates back to 2021 where stress test was suggestive of nonischemic cardiomyopathy. (2) Nonischemic congestive cardiomyopathy: Last known ejection fraction of 20% from recent echo on July 07, 2024. (3) Acute on chronic systolic CHF (congestive heart failure), NYHA class 4: Physical exam with crackles bilaterally to auscultation. Chest x-ray showing bilateral pulmonary congestion. Clinical impression that of acute on chronic systolic CHF exacerbation. Lasix 40 mg IV now. Depending on urine output and blood pressure response, will order further doses. Strict UMANG monitoring, serial creatinine check. Patient reports compliance with home Lasix regimen. He is planned for LifeVest and ICD placement as outpatient. Plan Hold Entresto for now given soft blood pressure between [id number] systolic. Need blood pressure room to start metoprolol today. DVT prophylaxis: Eliquis 5 mg p.o. twice daily to continue Full code PDMP PDMP Reviewed: Not Reviewed Attestations Medical Necessity Statement*: Greater than 2 midnight stay is anticipated at this time for IV diuresis, amiodarone infusion heart rate to be brought under control. Coding Level of Care Code Acute Code for Chg Fwd High MDM includes number and complexity of problems actively addressed during encounter, amount and/or complexity of data reviewed/ordered and described risk of complication, morbidity or mortality of management as documented Diagnoses Atrial fibrillation with rapid ventricular response I48.91 Nonischemic congestive cardiomyopathy I42.0 Acute on chronic systolic CHF (congestive heart failure), NYHA class 4 I50.23
[2024-07-22] MEDS: amiodarone 150 MG/100 ML PREMIX 400 MG IV (17:26)
[2024-07-22] MEDS: apixaban 5 mg Tablet PO (17:27)
[2024-07-22] MEDS: FUROsemide 10 mg/mL SDV 4mL 40 MG IVP (17:27)
--- OUTSIDE RECORDS SUMMARY | 2024-07-22 18:03 | XMS_ITS | Clinical Summary ---
Author Organization [facility] [place] Address [address] [place] [address] Care Team Providers Care C 40A Crew Chief Name Role Phone Sumi Oliver MD Primary Care Provider Allergies Active Allergy Reactions Criticality Noted Date Comments Simvastatin Nausea and Vomiting Low 04/07/2011 Medications OTHER OTC allergy med prn . Active CPAP / BIPAP suppliesIndications: Other sleep apnea Length of need: 99 months Mask Type: full face with headgear every 6 months, mask only every 3 months,1 cushions per month. Tubing: non heated 1 every 3 months, water chamber 1 every 6 months, chin strap 1 every 6 months, filters disposable 2 per month, filters reusable 1 per 6 months. Needs new compressor. 1 Each 05/30/19 18 Active DULoxetine (CYMBALTA) 60 mg Capsule, Delayed Release(E.C.)Indicat ions:Neuropathy TAKE 1 CAPSULE BY MOUTH ONCE DAILY 90 Capsule 1 05/03/19 21 Active atenoloL (TENORMIN) 50 mg tabletIndications:Es sential hypertension TAKE 2 TABLETS BY MOUTH ONCE DAILY 180 Tablet 1 05/03/19 21 Active lisinopril-hydroCHLO ROthiazide (ZESTORETIC) 20-12.5 mg tabletIndications:Es sential hypertension Take 1 tablet by mouth once daily 90 Tablet 1 05/03/19 21 Active fenofibrate nanocrystallized (TRICOR) 145 mg tabletIndications:Hy perlipidemia, unspecified hyperlipidemia type TAKE 1 TABLET BY MOUTH ONCE DAILY. REPLACES GEMFIBROZIL 90 Tablet 1 05/03/19 21 Active Active Problems Problem Noted Date Diagnosed Date Obstructive sleep apnea 09/19/2016 Shingles (herpes zoster) polyneuropathy 02/05/20 16 Tobacco use 06/21/2015 Allergic rhinitis 07/18/2011 Hyperlipidemia 12/24/2007 HTN (hypertension) 12/24/2007 Overview (04/02/2010): Updating IMO/ICD9 Code and Description Social History Tobacco Use Types Packs/Day Years Used Date Smoking Tobacco: Never Smokeless Tobacco: Current Chew Tobacco Cessation:Ready to Q uit: Yes; Counseling Given: Yes Comments:one can q 1.5 days x 33 yrs Alcohol Use Standard Drinks/Week Comments Yes 1.7 (1 standard drink = 0.6 oz p ure alcohol) occassional Sex and Gender Information Value Date Recorded Sex Assigned at Not on file Legal Sex Male 5:47 AM RN ONCOLOGY RESEARCH Gender Identity Not on file Sexual Orientation Not on file Occupation Industry Job Start Date Job End Date Not on file Not on file Not on file Not on file Last Filed Vital Signs Vital Sign Reading Time Taken Comments Blood Pressure 158/92 05/03/2020 1:24 PM RN ONCOLOGY RESEARCH Pulse 96 05/03/2020 1:24 PM RN ONCOLOGY RESEARCH Temperature 36.7 C (98 F) 05/03/2020 1:24 PM RN ONCOLOGY RESEARCH Respiratory Rate 20 05/03/2020 1:24 PM RN ONCOLOGY RESEARCH Oxygen Saturation 98% 05/03/2020 1:24 PM RN ONCOLOGY RESEARCH Inhaled Oxygen Concentration - - Weight 116.5 kg (256 lb 12.8 oz) 05/03/2020 1:24 PM RN ONCOLOGY RESEARCH Height 180.3 cm (5' 11 ) 05/03/2020 1:24 PM RN ONCOLOGY RESEARCH Body Mass Index 35.82 05/03/2020 1:24 PM RN ONCOLOGY RESEARCH Plan of Treatment Health Maintenance Due Date Last Done Comments Pre-Diabetes and Diabetes Screening 1960 DTAP/TDAP/TD VACCINES (1 - Tdap) 02/15/1980 COLORECTAL SCREENING 2006 Colorectal Cancer Screening 2006 FIT-DNA Q 3 years 2006 FIT/FOBT Q 1 year 2006 Flex Sig/CT Colonography Q 5 years 2006 ZOSTER VACCINE (1 of 2) 2011 INFLUENZA VACCINE (#1) 2023 , 05/03/2020, 03/23/2019, Additional history exists Preventative Visit- Commercial 03/09/2024 RSV VACCINE (60+ or ) (1 - 1-dose 75+ series) 02/15/2036 Insurance [facility] Care Teams C 40A Crew Chief Relationship Specialty Start Date End Date Sumi Oliver MD [address] [phone] PCP - General Family Practice 04/09/20
--- OUTSIDE RECORDS SUMMARY | 2024-07-22 18:03 | XMS_ITS | Encounter Summary ---
Author Organization [facility] Address [address] [place] [address] Care Team Providers Care Food Service Clerk Name Role Phone Sumi Oliver MD Primary Care Provider Encounter Details Date Type Department Care Team (Latest Contact Info) Description 06/08/1998 Outpatient Historical [facility] Family Medicine- [address] [place] [address] Mayra Cherry NO ADDRESS ON FILE Pneumonia, organism unspecified(486) (Primary Dx) Social History Tobacco Use Types Packs/Day Years Used Date Smoking Tobacco: Never Assessed Sex and Gender Information Value Date Recorded Sex Assigned at Not on file Legal Sex Male 5:47 AM 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
--- OUTSIDE RECORDS SUMMARY | 2024-07-22 18:03 | XMS_ITS | Encounter Summary ---
Author Organization [facility] Address [address] [place] [address] Care Team Providers Care Field Training Manager Name Role Phone Sumi Oliver MD Primary Care Provider Encounter Details Date Type Department Care Team (Latest Contact Info) Description 06/05/2000 Outpatient Historical 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
--- OUTSIDE RECORDS SUMMARY | 2024-07-22 18:03 | XMS_ITS | Encounter Summary ---
Author Organization [facility] Address [address] [place] [address] Care Team Providers Care Miller Wood Flour Name Role Phone Sumi Oliver MD Primary Care Provider Encounter Details Date Type Department Care Team (Latest Contact Info) Description 04/24/2006 Outpatient Historical [facility] Family Medicine- [address] [place] [phone] Jeanna Agee MD NO ADDRESS ON FILE Unspecified Essential Hypertension (Primary Dx); Mixed Hyperlipidemia Social History Tobacco Use Types Packs/Day Years Used Date Smoking Tobacco: Never Assessed Sex and Gender Information Value Date Recorded Sex Assigned at Not on file Legal Sex Male 5:47 AM INSOLE PRESSER Gender Identity Not on file Sexual Orientation Not on file documented as of this encounter Plan of Treatment Not on file documented as of this encounter Visit Diagnoses Diagnosis Unspecified essential hypertension- Primary Mixed hyperlipidemia documented in this encounter Care Teams Miller Wood Flour Relationship Specialty Start Date End Date Sumi Oliver MD [address] [facility] [address] [place] [phone] PCP - General Family Practice 04/09/20 documented as of this encounter
--- OUTSIDE RECORDS SUMMARY | 2024-07-22 18:03 | XMS_ITS | Encounter Summary ---
Author Organization [facility] Address [address] [address] Care Team Providers Care Cutting And Creasing Press Operator Name Role Phone Sumi Oliver MD Primary Care Provider Encounter Details Date Type Department Care Team (Latest Contact Info) Description 10/30/2006 Outpatient Historical [facility] Family Medicine- [address] [place] [phone] Jeanna Agee MD NO ADDRESS ON FILE Sprain and Strain of Unspecified Site of Elbow and Forearm (Primary Dx) Social History Tobacco Use Types Packs/Day Years Used Date Smoking Tobacco: Never Assessed Sex and Gender Information Value Date Recorded Sex Assigned at Not on file Legal Sex Male 5:47 AM 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
--- OUTSIDE RECORDS SUMMARY | 2024-07-22 18:03 | XMS_ITS | Encounter Summary ---
Author Organization [facility] Address [address] [place] [address] Care Team Providers Care Director Emergency Services Name Role Phone Sumi Oliver MD Primary Care Provider Encounter Details Date Type Department Care Team (Latest Contact Info) Description 06/22/2001 Outpatient Historical [facility] Family Medicine- [address] [place], [place] [phone] Uri Burleson, NO ADDRESS ON FILE HYPERTENSION NOS (Primary Dx); ALLERGY, UNSPECIFIED Social History Tobacco Use Types Packs/Day Years Used Date Smoking Tobacco: Never Assessed Sex and Gender Information Value Date Recorded Sex Assigned at Not on file Legal Sex Male 5:47 AM 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
--- OUTSIDE RECORDS SUMMARY | 2024-07-22 18:03 | XMS_ITS | Encounter Summary ---
Author Organization [facility] Address [address] [place] [address] Care Team Providers Care Client Solutions Manager Name Role Phone Sumi Oliver MD Primary Care Provider Encounter Details Date Type Department Care Team (Latest Contact Info) Description 04/17/2006 Outpatient Historical [facility] Family Medicine- [address] [place] [phone] Jeanna Agee MD NO ADDRESS ON FILE Other Alteration of Consciousness (Primary Dx); Elevated Blood Pressure Reading without Diagnosis of Hypertension Social History Tobacco Use Types Packs/Day Years Used Date Smoking Tobacco: Never Assessed Sex and Gender Information Value Date Recorded Sex Assigned at Not on file Legal Sex Male 5:47 AM ENTRY EXAMINER Gender Identity Not on file Sexual Orientation Not on file documented as of this encounter Plan of Treatment Not on file documented as of this encounter Visit Diagnoses Diagnosis Other alteration of consciousness- Primary Elevated blood pressure reading without diagnosis of hypertension documented in this encounter Care Teams Client Solutions Manager Relationship Specialty Start Date End Date Sumi Oliver MD [address] [facility] [address] [place] [address] PCP - General Family Practice 04/09/20 documented as of this encounter
--- OUTSIDE RECORDS SUMMARY | 2024-07-22 18:03 | XMS_ITS | Encounter Summary ---
Author Organization [facility] Address [address] [place] [address] Care Team Providers Care Pest Control Worker Name Role Phone Sumi Oliver MD Primary Care Provider Encounter Details Date Type Department Care Team (Latest Contact Info) Description 06/08/2001 Outpatient Historical [facility] Family Medicine- [place] [address], [place] [phone] Uri Burleson DO NO ADDRESS ON FILE ALLERGY, UNSPECIFIED (Primary Dx); DYSPHAGIA Social History Tobacco Use Types Packs/Day Years Used Date Smoking Tobacco: Never Assessed Sex and Gender Information Value Date Recorded Sex Assigned at Not on file Legal Sex Male 5:47 AM 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
--- OUTSIDE RECORDS SUMMARY | 2024-07-22 18:03 | XMS_ITS | Clinical Summary ---
Author Organization [facility] Address [address] [facility] Attn: Epic Prelude ADT [place] [address] Care Team Providers Care Supervisor Roving Name Role Phone Francis Elmore MD Primary Care Provider [phone] Allergies Active Allergy Reactions Criticality Noted Date Comments Simvastatin Nausea and Vomiting Low 04/07/2011 Medications OTHER OTC allergy med prn . Active CPAP / BIPAP suppliesIndications: Other sleep apnea Length of need: 99 monthsMask Type: full face with headgear every 6 months, mask only every 3 months,1 cushions per month. Tubing: non heated 1 every 3 months, water chamber 1 every 6 months, chin strap 1 every 6 months, filters disposable 2 per month, filters reusable 1 per 6 months. Needs new compressor. 1 Each 0 05/30/19 18 Active fenofibrate nanocrystallized (TRICOR) 145 mg tabletIndications:Mi xed hyperlipidemia Take 1 Tablet (145 mg) by mouth daily. 90 Tablet 1 11/02/19 22 Active lisinopril-hydroCHLO ROthiazide (ZESTORETIC) 20-12.5 mg tabletIndications:Pr imary hypertension Take 1 Tablet by mouth daily. 90 Tablet 1 11/02/19 22 Active Additional Information Patient not taking.Reported on 01/08/2023 gabapentin (NEURONTIN) 100 mg capsuleIndications:S hingles (herpes zoster) polyneuropathy Take 1 Capsule (100 mg) by mouth daily at bedtime. 90 Capsule 1 11/02/19 22 Active Additional Information Patient not taking.Reported on 01/08/2023 atenoloL (TENORMIN) 50 mg tabletIndications:Pr imary hypertension Take 1 Tablet (50 mg) by mouth daily. 90 Tablet 1 01/08/20 22 Active Eliquis 5 mg tablet 01/05/20 Active digoxin (LANOXIN) 125 mcg (0.125 mg) tablet 01/08/20 Active diltiaZEM (CARDIZEM CD) 120 mg Controlled Delivery 24 hour capsule 01/08/20 Active furosemide (LASIX) 40 mg tablet Take 40 mg by mouth daily. 12/18/19 Active Entresto 97-103 mg Tablet Take 1 Tablet by mouth 2 times daily. 12/05/19 Active DULoxetine (CYMBALTA) 60 mg Capsule, Delayed Release(E.C.)Indicat ions:Shingles (herpes zoster) polyneuropathy TAKE 1 CAPSULE BY MOUTH ONCE DAILY . NEEDS APPOINTMENT/LAB S PRIOR TO REFILLS 100 Capsule 3 12/14/19 24 Active Active Problems Problem Noted Date Diagnosed Date Paroxysmal atrial fibrillation 12/04/2021 Obstructive sleep apnea 09/19/2016 Shingles (herpes zoster) polyneuropathy 02/05/20 16 Tobacco use 06/21/2015 Allergic rhinitis 07/18/2011 Hyperlipidemia 12/24/2007 HTN (hypertension) 12/24/2007 Overview (07/04/2020): Updating IMO/ICD9 Code and Description Encounters Date Type Department Care Team Description 06/27/2024 Abstract [facility] Medicine [place] [address] [facility] [address] [place] [phone] Francis Elmore MD 06/27/2024 Orders Only [facility] HIM [address] [place] [address] Provider, Abstract 05/16/2024 External Device Data ST[facility] ABSTRACTION Provider, Abstract from Last 3 Months Immunizations Immunization Administration Dates Next Due INFLUENZA VACCINE QUADRIVALENT 6 MOS UP PF IM Social History Tobacco Use Types Packs/Day Years Used Date Smoking Tobacco: Never Smokeless Tobacco: Current Tobacco Cessation:Ready to Q uit: No; Counseling Given: Yes Comments:Quit smoking: one can q 1.5 days x 33 yrs Alcohol Use Standard Drinks/Week Comments Yes 1.7 (1 standard drink = 0.6 oz p ure alcohol) Sex and Gender Information Value Date Recorded Sex Assigned at Not on file Legal Sex Male 3:09 PM DIETARY AID Gender Identity Not on file Sexual Orientation Not on file Last Filed Vital Signs Vital Sign Reading Time Taken Comments Blood Pressure 120/72 10/30/2023 4:11 PM CDT Pulse 95 10/30/2023 4:11 PM CDT Temperature 36.8 C (98.3 F) 10/30/2023 4:11 PM CDT Respiratory Rate 18 10/30/2023 4:11 PM CDT Oxygen Saturation 99% 10/30/2023 4:11 PM CDT Inhaled Oxygen Concentration - - Weight 108 kg (238 lb) 10/30/2023 4:11 PM CDT Height 180.3 cm (5' 11 ) 10/30/2023 4:11 PM CDT Body Mass Index 33.19 10/30/2023 4:11 PM CDT Plan of Treatment Health Maintenance Due Date Last Done Comments Pre-Diabetes and Diabetes Screening 1961 DTAP/TDAP/TD VACCINES (1 - Tdap) 02/15/1980 COLORECTAL SCREENING 2006 Colorectal Cancer Screening 2006 FIT-DNA Q 3 years 2006 FIT/FOBT Q 1 year 2006 Flex Sig/CT Colonography Q 5 years 2006 ZOSTER VACCINE (1 of 2) 2011 INFLUENZA VACCINE (#1) 2023 3, 05/03/2020, 05/03/2020, Additional history exists COVID-19 Vaccine (3 - 2023-2 5 season) 2023 01/11/2021, 05/04/2020 Preventative Visit- Commercial 03/09/2024 RSV VACCINE (60+ or ) (1 - 1-dose 75+ series) 02/15/2036 Insurance [facility] BLUE PREFERRED Care Teams Supervisor Roving Relationship Specialty Start Date End Date Francis Elmore MD [address] [phone] PCP - General Family Practice 04/04/21
--- OUTSIDE RECORDS SUMMARY | 2024-07-22 18:03 | XMS_ITS | Encounter Summary ---
Author Organization [facility] Address [address] [place] [address] Care Team Providers Care Appeals Nurse Name Role Phone Sumi Oliver MD Primary Care Provider Encounter Details Date Type Department Care Team (Latest Contact Info) Description 05/08/2006 Outpatient Historical [facility] Family Medicine- [address] [place] [phone] Jeanna Agee MD NO ADDRESS ON FILE Unspecified Essential Hypertension (Primary Dx); Unspecified Sleep Apnea Social History Tobacco Use Types Packs/Day Years Used Date Smoking Tobacco: Never Assessed Sex and Gender Information Value Date Recorded Sex Assigned at Not on file Legal Sex Male 5:47 AM MILL ORDER 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
--- OUTSIDE RECORDS SUMMARY | 2024-07-22 18:03 | XMS_ITS | Encounter Summary ---
Author Organization [facility] Address [address] [facility] [place] [address] Care Team Providers Care Nuclear Technician Name Role Phone Sumi Oliver MD Primary Care Provider Encounter Details Date Type Department Care Team (Latest Contact Info) Description 06/01/2006 Outpatient Historical [facility] Family Medicine- [address] [place] [phone] Jeanna Agee MD NO ADDRESS ON FILE Unspecified Essential Hypertension (Primary Dx); Unspecified Sleep Apnea Social History Tobacco Use Types Packs/Day Years Used Date Smoking Tobacco: Never Assessed Sex and Gender Information Value Date Recorded Sex Assigned at Not on file Legal Sex Male 5:47 AM BIZTALK ARCHITECT Gender Identity Not on file Sexual Orientation Not on file documented as of this encounter Plan of Treatment Not on file documented as of this encounter Visit Diagnoses Diagnosis Unspecified essential hypertension- Primary Unspecified sleep apnea documented in this encounter Care Teams Nuclear Technician Relationship Specialty Start Date End Date Sumi Oliver MD [address] [phone] PCP - General Family Practice 04/09/20 documented as of this encounter
--- OUTSIDE RECORDS SUMMARY | 2024-07-22 18:03 | XMS_ITS | Encounter Summary ---
Author Organization [facility] Address [address] [facility] [place] [address] Care Team Providers Care Booker Name Role Phone Sumi Oliver MD Primary Care Provider Encounter Details Date Type Department Care Team (Latest Contact Info) Description 06/02/2000 Outpatient Historical [facility] Family Medicine- [address] [place] [place], [place] [phone] Uri Burleson, NO ADDRESS ON FILE Dizziness and giddiness (Primary Dx); Labyrinthitis, unspecified Social History Tobacco Use Types Packs/Day Years Used Date Smoking Tobacco: Never Assessed Sex and Gender Information Value Date Recorded Sex Assigned at Not on file 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
[2024-07-22 18:29] LABS: Troponin(5th) Baseline 19 ng/L (0-15)
[2024-07-22 18:31] LABS: ABG PH Result 7.47 (7.35-7.45); Alveolar-Arterial Oxygen Gradi 7.6 mmHg (5-10); Arterial Blood Gas Hematocrit 44.5 % (42-52); Base Excess ABG 1.1 mmol/L (-2.0-2.0); Blood Gas Allen Test Pos; Blood Gas Operator Identificat glc; Blood Gas Sample Site Radial, right; Blood Gas Sample Type Arterial; HCO3 ABG 24.1 mmol/L (22-26); HGB O2 Sat 83.7 % (95-100); Ionized Calcium Level - ABG 1.1 mmol/L (1.1-1.4); Oxygen Device OXY MASK; Oxygen Saturation ABG 85.4; PO2 ABG 48.1 mmHg (80.0-100.0); Potassium Level - ABG 3.3 mmol/L (3.5-5.0); Total Hemoglobin 14.5 g/dL (14-18)
--- NOTE | 2024-07-22 18:48 | PC.NURSE ---
o2 sat dropped to high 70's - low 80's.no sob reported/noted.dr cox notified.she ordered abg.rt is applying heated high flow o2
--- NOTE | 2024-07-22 18:51 | PC.NURSE ---
pt is refusing insertion of buchanan cath at this time.states he will use urinal
[2024-07-22 19:05] LABS: Procalcitonin 0.07 ng/mL (0-0.5); Thyroid Stimulating Hormone 1.29 uIU/mL (0.27-4.20)
[2024-07-22 19:59] LABS: Troponin 5 2HR 19.48 ng/L (0-15); Troponin 5 2HR Delta 0.48 ABS# (0-10)
[2024-07-22] MEDS: LORazepam 2 mg/mL INJ 1 mL 1 MG IVP (20:06)
[2024-07-22] MEDS: metoprolol tartrate 25 mg Tablet PO (20:54)
[2024-07-22 23:35] LABS: Troponin 5 6HR 20.68 ng/L (0-15); Troponin 5 6HR Delta 1.68 ng/L (0-12)
--- NOTE | 2024-07-22 23:39 | ECG_ITS ---
[facility] Date: 2024-07-22 Pat Name: Colin Moya Department: Room: 104 Gender: Male Personal Lines Account Executive: : 1960 Requested By: Montserrat Tello Order Number: [id number] Oscar MD: Perez Peterson M.D. Measurements Intervals [place] Rate: 84 P: 0 MI: 0 QRS: 71 QRSD: 141 T: 250 QT: 435 QTc: 514 Interpretive Statements ATRIAL FIBRILLATION LEFT BUNDLE BRANCH BLOCK [120+ ms QRS DURATION, 80+ ms Q/S IN V1/V2, 85+ ms R IN I/aVL/V5/V6] Compared to ECG 07/22/2024 17:38:13 Left-axis deviation no longer present Electronically Signed On 07-23-2024 12:13:20 CDT by Perez Peterson M.D. [email or web address]
[2024-07-23] VITALS (15 sets, daily range): BP systolic 109–118; BP diastolic 71–98; PULSE 79–116; RESP 18–38; TEMP 36.7–38.1; O2SAT 85–97; BMI 33.2
[2024-07-23 03:10] LABS: Basophils % 0.3 %; Eosinophils % 0.1 %; Hematocrit 37.6 % (37-53); Lymphocytes # 1.2 10^3/uL (0.8-4.8); Lymphocytes % 12.8 %; Mean Corpuscular Hemoglobin 29.7 pg (27-33); Mean Platelet Volume 10.2 fL (7.4-10.4); Monocytes # 0.6 10^3/uL (0.2-0.9); Monocytes % 7.1 %; Neutrophils # 7.17 10^3/uL (1.8-7.7); Nucleated Red Blood Cells % 0 %; Platelet Count 272 10^3/cmm (157-399); Red Blood Count 4.18 10^6/uL (3.85-5.65); Red Cell Distribution Width 13.2 % (12.1-15.1); White Blood Count 9.07 10^3/uL (3.29-11.43)
--- NOTE | 2024-07-23 03:18 | ECG_ITS ---
[facility] 2024-07[facility]23 Pat Name: Colin Moya Department: Room: 104 Gender: Male Chief Safety Officer: : 1960 Requested By: Ary Joyner Order Number: [id number] Oscar MD: Perez Peterson M.D. Measurements Intervals [place] Rate: 86 P: 0 DE: 0 QRS: 104 QRSD: 146 T: -76 QT: 437 QTc: 524 Interpretive Statements ATRIAL FIBRILLATION RIGHT AXIS DEVIATION [QRS AXIS > 100] INTRAVENTRICULAR CONDUCTION DELAY [130+ ms QRS DURATION] Compared to ECG 07/22/2024 23:39:40 Intraventricular conduction delay now present Electronically Signed On 07-23-2024 11:54:15 CDT by Perez Peterson M.D. [email or web address]
[2024-07-23 03:22] LABS: Troponin(5th) Baseline 19 ng/L (0-15)
[2024-07-23 03:44] LABS: Alanine Aminotransferase 15 U/L (0-41); Albumin Level 3.4 g/dL (3.5-5.2); Alkaline Phosphatase 83 U/L (40-130); Anion Gap 15.8 (5-19); Aspartate Amino Transferase 12 U/L (0-40); Blood Urea Nitrogen 17 mg/dL (8-23); Calcium 8.3 mg/dL (8.5-10.5); Carbon Dioxide 25 mmol/L (22-29); Chloride 99 mmol/L (98-107); Globulin 2.1 g/dL (1.3-4.6); Glomerular Filtration Rate 61.1 mL/min (90-130); Glucose 127 mg/dL (65-115); Osmolality Calculated 285 mOsm/kg (285-295); Potassium 3.8 mmol/L (3.5-5.1); Sodium 136 mmol/L (136-145); Total Bilirubin 1.3 mg/dL (0.15-1.2); Total Protein 5.5 g/dL (6.6-8.7)
--- NOTE | 2024-07-23 04:46 | ECG_ITS ---
[facility] Date: 2024-07-23 Pat Name: Colin Moya Department: Room: 104 Gender: Male Hide Tanner: : 1960 Requested By: Ary Joyner Order Number: [id number] Oscar MD: Perez Peterson M.D. Measurements Intervals [place] Rate: 81 P: 0 ID: 0 QRS: 89 QRSD: 139 T: -76 QT: 425 QTc: 496 Interpretive Statements ATRIAL FIBRILLATION INTRAVENTRICULAR CONDUCTION DELAY [130+ ms QRS DURATION] ANTERIOR MYOCARDIAL INFARCTION , PROBABLY RECENT [40+ ms Q WAVE AND/OR ST/T ABNORMALITY IN V3/V4] Compared to ECG 07/23/2024 03:18:32 No significant change Electronically Signed On 07-23-2024 12:13:07 CDT by Perez Peterson M.D. [email or web address]
[2024-07-23 05:48] LABS: Troponin 5 2HR 17.24 ng/L (0-15)
[2024-07-23 05:50] LABS: Troponin 5 2HR Delta -1.76 ABS# (0-10)
--- NOTE | 2024-07-23 08:46 | ECG_ITS ---
[facility]: 2024[facility]23 Pat Name: Colin Moya Department: Room: 104 Gender: Male Supervisor Drapery Hanging: : 1960 Requested By: Ary Joyner Order Number: [id number] Oscar MD: Perez Peterson M.D. Measurements Intervals [place] Rate: 79 P: 0 CA: 0 QRS: 84 QRSD: 126 T: 250 QT: 413 QTc: 474 Interpretive Statements ATRIAL FIBRILLATION ANTEROSEPTAL MYOCARDIAL INFARCTION MODERATE T-WAVE ABNORMALITY, CONSIDER LATERAL ISCHEMIA [-0.1+ mV T-WAVE IN I/aVL/V5/V6] MODERATE T-WAVE ABNORMALITY, CONSIDER INFERIOR ISCHEMIA [-0.1+ mV T-WAVE IN II/aVF] Compared to ECG 07/23/2024 04:48:36 No significant change Electronically Signed On 07-23-2024 12:12:17 CDT by Perez Peterson M.D. [id number]
[2024-07-23] MEDS: cefTRIAXone 1,000 mg SDV 1000 MG IVP (09:06)
[2024-07-23] MEDS: digoxin 125 mcg Tablet PO (09:07)
[2024-07-23] MEDS: metoprolol tartrate 25 mg Tablet PO (09:07)
[2024-07-23] MEDS: apixaban 5 mg Tablet PO ×2 (09:07→17:18)
[2024-07-23] MEDS: azithromycin 250 mg Tablet 500 MG PO (09:07)
[2024-07-23] MEDS: duloxetine 60 mg Capsule PO (09:07)
[2024-07-23] MEDS: pantoprazole DR 40 mg Tablet PO (09:07)
[2024-07-23 09:12] LABS: Troponin 5 6HR 18.86 ng/L (0-15)
[2024-07-23 09:13] LABS: Troponin 5 6HR Delta -0.14 ng/L (0-12)
[2024-07-23 10:08] LABS: Adenovirus Not Detected (NOT DETECT); Chlamydia Pneumoniae Not Detected (NOT DETECT); Coronavirus 229E,HKU1,NL63,OC4 Not Detected (NOT DETECT); Human Metapneumovirus Not Detected (NOT DETECT); Human Rhinovirus/Enterovirus Not Detected (NOT DETECT); Influenza A Not Detected (NOT DETECT); Influenza A H1 Not Detected (NOT DETECT); Influenza A H1-2009 Not Detected (NOT DETECT); Influenza A H3 Not Detected (NOT DETECT); Influenza B Not Detected (NOT DETECT); Mycoplasma Pneumoniae Not Detected (NOT DETECT); Parainfluenza Virus Type 1 Not Detected (NOT DETECT); Parainfluenza Virus Type 2 Not Detected (NOT DETECT); Parainfluenza Virus Type 3 Not Detected (NOT DETECT); Parainfluenza Virus Type 4 Not Detected (NOT DETECT); Respiratory Syncytial Virus A Not Detected (NOT DETECT); Respiratory Syncytial Virus B Not Detected (NOT DETECT); SARS-COV-2 Not Detected (NOT DETECT)
--- NOTE | 2024-07-23 10:39 | PC.CHAP ---
Pastoral Care Encounter/Spiritual Assessment Type of Contact [] Declined building custodial supervisor visit [] Patient/Family/Request visit [] Outpatient visit [] Follow-up visit [] Physician referral [] Code/Alert [] Routine visit [] Staff referral [] Actively dying [x] Patient sleeping [] Family support [] [] Out of room [] Palliative care [] [] Receiving care in room [] Pre-surgical visit [] Trauma [] Long length of stay [] ICU visit [] Other: Relational/Emotional Strength [] Patient feels connected with others/family/visitors/staff [] Distress [] Loneliness/isolation [] Abandonment Spirituality of Patient [] Person of Mayuri [] Attends Congregation of their Mayuri [] Believes in Prayer [] Reads Bible or Congregational materials [] There are Spiritual issues to be addressed Nutrition Partner Interventions [] Prayer [] Active listening [] Non-anxious presence [] Spiritual/emotional support [] Crisis/trauma care [] Spiritual counseling [] Bereavement support [] Provided bereavement packet [] Provided Bible/devotional materials [] Provided toy/stuffed animal, coloring book to patient or family member [] Provided Communion [] Anointing/[place] [] Salvation [] Completed spiritual assessment [] Other: Impact on Illness or Injury [] Angry [] Fearful [] Anxious [] Often cries [] Exhaustion [] Unable to work [] Unable to attend lutheran [] Unable to walk/stand [] Unable to read [] Unable to drive [] Unable to eat/drink [] Unable to sleep [] Unable to be with family [] Patient intubated [] Other: Summary Time spent with patient
--- NOTE | 2024-07-23 12:54 | P.PN_ITS ---
Subjective 2 Subjective: Patient needed to be placed on BiPAP ventilation last evening due to worsening shortness of breath. This morning he has been able to be weaned down heated hi flow NC 60% fi02. Developed low grade fever overnight to 99.8 t max Medications: Reviewed: Yes Vitals/I&O/Wt Last Vital Signs Temp 98.1 F 07/23/24 11:58 Pulse 110 H 07/23/24 11:58 Resp 24 H 07/23/24 11:58 BP 109/75 07/23/24 11:58 Pulse Ox 97 07/23/24 11:58 O2 Del Method High Flow Nasal Cannula 07/23/24 11:58 O2 Flow Rate 60 07/23/24 11:10 FiO2 90 07/23/24 11:10 07/22/24 07/23/24 07/23/24 22:59 06:59 14:59 Intake Total 123.25 / 147.958 200 / 347.958 440 / 440 Output Total 250 / 250 300 / 550 420 / 420 Balance -126.75 / -102.042 -100 / -202.042 20 / 20 Weight last 48 hrs Weight 108.012 kg Weight 110.223 kg Weight 107.048 kg Physical Exam 2 Narrative: General: No acute distress, AO x3 HEENT: PERRLA, pupils bilaterally equal and reactive, pallors not present Chest: Normal vesicular breath sounds, no added sounds, equal good air entry bilaterally CVS: S1-S2 irregular, no murmurs, + tachycardia, no gallops, no rubs Abdomen: Soft, nontender, no organomegaly, bowel sounds present Neuro: No focal deficits, no facial deformity, AO x3, power 5/5 in all limbs Extremities: no LE pitting edema Data 07/23/24 02:57 07/23/24 02:57 A&P Assessment and plan (1) Atrial fibrillation with rapid ventricular response: Patient directed to come into the emergency room today after his follow-up with cardiology as outpatient due to A-fib RVR and signs of volume overload. At the time of this assessment heart rate is noted to be between 120 to 132 bpm in A-fib RVR Currently this is on Cardizem infusion at 15 mg/h Discontinue Cardizem gtt. as continues to be in persistent A-fib. Start amiodarone 150 mg IV push over 15 minutes followed by amiodarone gtt. at 1 mg/h. Continue digoxin 125 mcg p.o. daily Start metoprolol 25 mg p.o. twice daily. Jevon to confirm with pharmacy tomorrow if patient was taking metoprolol 100 mg p.o. twice daily at home. Patient himself does not recall this at this present time. Check troponin series Patient's last ischemic evaluation dates back to 2021 where stress test was suggestive of nonischemic cardiomyopathy. (2) Nonischemic congestive cardiomyopathy: Last known ejection fraction of 20% from recent echo on July 07, 2024. (3) Acute on chronic systolic CHF (congestive heart failure), NYHA class 4: Physical exam with crackles bilaterally to auscultation. Chest x-ray showing bilateral pulmonary congestion. Clinical impression that of acute on chronic systolic CHF exacerbation. Lasix 40 mg IV now. Depending on urine output and blood pressure response, will order further doses. Strict UMANG monitoring, serial creatinine check. Patient reports compliance with home Lasix regimen. He is planned for LifeVest and ICD placement as outpatient. Plan Hold Entresto for now given soft blood pressure between 5033-9470 systolic. Need blood pressure room to start metoprolol today. DVT prophylaxis: Eliquis 5 mg p.o. twice daily to continue Full code July 24, 2019 Heart rate is better controlled today on amiodarone drip. Will transition to po amiodarone 400mg BID today once completes iv insfuison. Home med list confirmed from pharmacy, patient is not taking any metoprolol in a long time. He has been on cardizem and digoxin only. will up titrate metoprolol to 50mg BID today, hr currently 90-100. Urine outout is 700 cc this morning. Start Lasix 40mg IVP q12h with close monitoring of renal function and urine output. Additionally add Ceftriaxone and azithromycin for possibility of CAP given low grade fever. Resp viral panel is negative today PDMP PDMP Reviewed: Not Reviewed Attestations 2 Medical Necessity Statement*: needs continued admission for high 02 requirementrs, need for iv diuresis , iv abx, iv rate control medication Coding Level of Care Code Acute Code for [facility] Fwd Diagnoses Atrial fibrillation with rapid ventricular response I48.91 Nonischemic congestive cardiomyopathy I42.0 Acute on chronic systolic CHF (congestive heart failure), NYHA class 4 I50.23
[2024-07-23] MEDS: FUROsemide 10 mg/mL SDV 4mL 40 MG IVP (13:45)
--- NOTE | 2024-07-23 14:00 | PC.NURSE ---
Encouraged patient to accept a buchanan catheter during diuresis. Patient refused buchanan cath insertion and prefers to use urinal.
[2024-07-23] MEDS: amiodarone 200 mg Tablet 400 MG PO (17:18)
[2024-07-23] MEDS: metoprolol tartrate 25 mg Tablet 50 MG PO (20:35)
[2024-07-24] VITALS (15 sets, daily range): BP systolic 93–117; BP diastolic 56–78; PULSE 65–104; RESP 18–30; TEMP 36.2–37.3; O2SAT 91–98
[2024-07-24 06:05] LABS: Basophils % 0.3 %; Eosinophils % 0.1 %; Hematocrit 38.5 % (37-53); Lymphocytes % 9.9 %; Mean Corpuscular HGB Conc 32.2 g/dL (30-55); Mean Corpuscular Hemoglobin 29.5 pg (27-33); Mean Corpuscular Volume 91.4 fl (82-101); Mean Platelet Volume 11.9 fL (7.4-10.4); Monocytes # 0.7 10^3/uL (0.2-0.9); Monocytes % 6.9 %; Neutrophils # 8.08 10^3/uL (1.8-7.7); Nucleated Red Blood Cells % 0 %; Platelet Count 193 10^3/cmm (157-399); Red Blood Count 4.21 10^6/uL (3.85-5.65); Red Cell Distribution Width 13.3 % (12.1-15.1); White Blood Count 9.86 10^3/uL (3.29-11.43)
[2024-07-24 06:25] LABS: Alanine Aminotransferase 14 U/L (0-41); Albumin Level 3.2 g/dL (3.5-5.2); Alkaline Phosphatase 77 U/L (40-130); Blood Urea Nitrogen 23 mg/dL (8-23); Calcium 8.5 mg/dL (8.5-10.5); Carbon Dioxide 26 mmol/L (22-29); Chloride 98 mmol/L (98-107); Creatinine Clr Calc Pharmacy 85.5369; Globulin 2.3 g/dL (1.3-4.6); Glomerular Filtration Rate 67.6 mL/min (90-130); Glucose 107 mg/dL (65-115); Osmolality Calculated 286 mOsm/kg (285-295); Sodium 136 mmol/L (136-145); Total Bilirubin 1.9 mg/dL (0.15-1.2); Total Protein 5.5 g/dL (6.6-8.7)
[2024-07-24 06:26] LABS: Anion Gap 15.8 (5-19); Aspartate Amino Transferase 14 U/L (0-40); Potassium 3.8 mmol/L (3.5-5.1)
[2024-07-24] MEDS: cefTRIAXone 1,000 mg SDV 1000 MG IVP (08:25)
[2024-07-24] MEDS: apixaban 5 mg Tablet PO ×2 (08:25→17:34)
[2024-07-24] MEDS: digoxin 125 mcg Tablet PO (08:26)
[2024-07-24] MEDS: amiodarone 200 mg Tablet 400 MG PO ×2 (08:26→17:34)
[2024-07-24] MEDS: metoprolol tartrate 25 mg Tablet 50 MG PO (08:26)
[2024-07-24] MEDS: azithromycin 250 mg Tablet 500 MG PO (08:26)
[2024-07-24] MEDS: pantoprazole DR 40 mg Tablet PO (08:27)
[2024-07-24] MEDS: duloxetine 60 mg Capsule PO (08:27)
--- NOTE | 2024-07-24 12:28 | PM.PN ---
Subjective Subjective: Max was 100.5 Fahrenheit yesterday at 3 PM. Continues to be on heated high flow currently at 50% FiO2 40 L/min. Heart rate remains controlled. Medications: Reviewed: Yes Vitals/I&O/Wt Last Vital Signs Temp 98.0 F 07/24/24 11:59 Pulse 80 07/24/24 11:59 Resp 28 H 07/24/24 11:59 BP 93/56 07/24/24 11:59 Pulse Ox 94 07/24/24 11:59 O2 Del Method High Flow Nasal Cannula 07/24/24 11:59 O2 Flow Rate 60 07/24/24 11:27 FiO2 70 07/24/24 11:27 07/23/24 07/24/24 07/24/24 22:59 06:59 14:59 Intake Total 466.412 / 906.412 200 / 1106.412 240 / 240 Output Total 440 / 960 300 / 1260 350 / 350 Balance 26.412 / -53.588 -100 / -153.588 -110 / -110 Weight last 48 hrs Weight 107.002 kg Weight 108.012 kg Weight 110.223 kg Physical Exam Narrative: General: No acute distress, AO x3 HEENT: PERRLA, pupils bilaterally equal and reactive, pallors not present Chest: Normal vesicular breath sounds, no added sounds, equal good air entry bilaterally CVS: S1-S2 irregular, no murmurs, + tachycardia, no gallops, no rubs Abdomen: Soft, nontender, no organomegaly, bowel sounds present Neuro: No focal deficits, no facial deformity, AO x3, power 5/5 in all limbs Extremities: no LE pitting edema Data 07/24/24 05:30 07/24/24 05:30 Micro: Microbiology 07/22/24 14:14 Urine Culture - Final Urine,Voided A&P Assessment and plan (1) Atrial fibrillation with rapid ventricular response: Patient directed to come into the emergency room today after his follow-up with cardiology as outpatient due to A-fib RVR and signs of volume overload. At the time of this assessment heart rate is noted to be between 120 to 132 bpm in A-fib RVR Currently this is on Cardizem infusion at 15 mg/h Discontinue Cardizem gtt. as continues to be in persistent A-fib. Start amiodarone 150 mg IV push over 15 minutes followed by amiodarone gtt. at 1 mg/h. Continue digoxin 125 mcg p.o. daily Start metoprolol 25 mg p.o. twice daily. Jevon to confirm with pharmacy tomorrow if patient was taking metoprolol 100 mg p.o. twice daily at home. Patient himself does not recall this at this present time. Check troponin series Patient's last ischemic evaluation dates back to 2021 where stress test was suggestive of nonischemic cardiomyopathy. (2) Nonischemic congestive cardiomyopathy: Last known ejection fraction of 20% from recent echo on July 07, 2024. (3) Acute on chronic systolic CHF (congestive heart failure), NYHA class 4: Physical exam with crackles bilaterally to auscultation. Chest x-ray showing bilateral pulmonary congestion. Clinical impression that of acute on chronic systolic CHF exacerbation. Lasix 40 mg IV now. Depending on urine output and blood pressure response, will order further doses. Strict UMANG monitoring, serial creatinine check. Patient reports compliance with home Lasix regimen. He is planned for LifeVest and ICD placement as outpatient. Plan Hold Entresto for now given soft blood pressure between 4016-7642 systolic. Need blood pressure room to start metoprolol today. DVT prophylaxis: Eliquis 5 mg p.o. twice daily to continue Full code July 23, 2024 Heart rate is better controlled today on amiodarone drip. Will transition to po amiodarone 400mg BID today once completes iv insfuison. Home med list confirmed from pharmacy, patient is not taking any metoprolol in a long time. He has been on cardizem and digoxin only. will up titrate metoprolol to 50mg BID today, hr currently 90-100. Urine outout is 700 cc this morning. Start Lasix 40mg IVP q12h with close monitoring of renal function and urine output. Additionally add Ceftriaxone and azithromycin for possibility of CAP given low grade fever. Resp viral panel is negative today July 24, 2024 Patient's rhythm continues to be A-fib, however rate is much better controlled between 80 to 90 bpm. Patient states his breathing feels better today. Saturating 94% on heated high flow. Overnight on review of telemetry patient was noted to have 1 episode of bradycardia on the current combination of medication which is amiodarone 400 twice daily, metoprolol 50 twice daily, digoxin 125 mcg p.o. daily. This afternoon blood pressure is soft 93/56. Given the bradycardia event overnight and soft blood pressure today, we will reduce my dose of metoprolol back to 25 mg p.o. twice daily. Patient will likely benefit from remaining on beta-blockers for the long-term. Hold digoxin for now. QTc interval reviewed normal at 460 ms. Continue amiodarone. Will consult with patient's electric engine mechanic Dr. Bustillos tomorrow to arrange LifeVest prior to discharge and also to optimize current rate control medications. Last fever yesterday at 3 PM. Currently on ceftriaxone and azithromycin for treatment of pneumonia. Continues to be on heated high flow. Volume status appears to be improving. Transition Lasix from 40 IV every 24 to p.o. Add methylprednisolone 40 mg IV every 24 hours as with underlying comorbidities patient Is High Risk of progression to sever CAP. He is currently on heated high flow with high oxygen requirements. This would need to be weaned down before discharge would be considered appropriate. Overnight noted to be on BiPAP. He does have a history of sleep apnea and uses a CPAP at nighttime. PDMP PDMP Reviewed: Not Reviewed Attestations Medical Necessity Statement*: Continue admission for IV antibiotics, add IV steroids for pneumonia, optimization of rate control medications ongoing.needs life vest Coding Level of Care Code Acute Code for [facility] Fwd Diagnoses Atrial fibrillation with rapid ventricular response I48.91 Nonischemic congestive cardiomyopathy I42.0 Acute on chronic systolic CHF (congestive heart failure), NYHA class 4 I50.23
[2024-07-24] MEDS: FUROsemide 10 mg/mL SDV 4mL 40 MG IVP (13:42)
[2024-07-24] MEDS: methylPREDNISolone sod succ 40 mg/mL INJ IVP (13:42)
--- NOTE | 2024-07-24 20:41 | PC.NURSE ---
Held pts metoprolol due to a blood pressure of 99/66.
[2024-07-25] VITALS (12 sets, daily range): BP systolic 104–127; BP diastolic 65–90; PULSE 62–101; RESP 13–22; TEMP 36.4–36.9; O2SAT 91–100
[2024-07-25 05:58] LABS: Basophils % 0.2 %; Hematocrit 33.8 % (37-53); Lymphocytes # 0.6 10^3/uL (0.8-4.8); Lymphocytes % 12.3 %; Mean Corpuscular HGB Conc 33.1 g/dL (30-55); Mean Corpuscular Hemoglobin 29.9 pg (27-33); Mean Corpuscular Volume 90.1 fl (82-101); Mean Platelet Volume 11.1 fL (7.4-10.4); Monocytes # 0.3 10^3/uL (0.2-0.9); Monocytes % 6.2 %; Neutrophils # 3.77 10^3/uL (1.8-7.7); Neutrophils % 80.2 %; Nucleated Red Blood Cells % 0 %; Platelet Count 237 10^3/cmm (157-399); Red Blood Count 3.75 10^6/uL (3.85-5.65); Red Cell Distribution Width 12.9 % (12.1-15.1)
[2024-07-25 06:21] LABS: Alanine Aminotransferase 11 U/L (0-41); Albumin Level 2.9 g/dL (3.5-5.2); Alkaline Phosphatase 70 U/L (40-130); Anion Gap 14.8 (5-19); Aspartate Amino Transferase 10 U/L (0-40); Blood Urea Nitrogen 26 mg/dL (8-23); Calcium 8.5 mg/dL (8.5-10.5); Carbon Dioxide 26 mmol/L (22-29); Chloride 100 mmol/L (98-107); Creatinine Clr Calc Pharmacy 93.9357; Globulin 3.1 g/dL (1.3-4.6); Glomerular Filtration Rate 75.5 mL/min (90-130); Glucose 134 mg/dL (65-115); Osmolality Calculated 291 mOsm/kg (285-295); Potassium 3.8 mmol/L (3.5-5.1); Sodium 137 mmol/L (136-145); Total Bilirubin 0.6 mg/dL (0.15-1.2)
[2024-07-25] MEDS: cefTRIAXone 1,000 mg SDV 1000 MG IVP (08:33)
[2024-07-25] MEDS: metoprolol tartrate 25 mg Tablet PO ×2 (08:33→21:07)
[2024-07-25] MEDS: FUROsemide 40 mg Tablet PO (08:33)
[2024-07-25] MEDS: amiodarone 200 mg Tablet 400 MG PO ×2 (08:36→17:35)
[2024-07-25] MEDS: pantoprazole DR 40 mg Tablet PO (08:37)
[2024-07-25] MEDS: duloxetine 60 mg Capsule PO (08:37)
[2024-07-25] MEDS: apixaban 5 mg Tablet PO ×2 (08:37→17:35)
[2024-07-25] MEDS: azithromycin 250 mg Tablet 500 MG PO (08:37)
--- NOTE | 2024-07-25 11:29 | PM.PN ---
Subjective Subjective: Heart rate at 101 this morning. Mostly ranging between 87 to 100 bpm. Continues to be on a heated high flow nasal cannula. Afebrile since July 23 Medications: Reviewed: Yes Vitals/I&O/Wt Last Vital Signs Temp 98.4 F 07/25/24 08:00 Pulse 101 H 07/25/24 08:00 Resp 20 H 07/25/24 08:00 BP 113/74 07/25/24 08:00 Pulse Ox 100 07/25/24 08:00 O2 Del Method High Flow Nasal Cannula 07/25/24 08:00 O2 Flow Rate 60 07/25/24 07:54 FiO2 70 07/25/24 07:54 07/24/24 07/25/24 07/25/24 22:59 06:59 14:59 Intake Total 240 / 720 240 / 240 Output Total 1025 / 1375 500 / 1875 500 / 500 Balance -785 / -655 -500 / -1155 -260 / -260 Weight last 48 hrs Weight 106.64 kg Weight 107.002 kg Physical Exam Narrative: General: No acute distress, AO x3 HEENT: PERRLA, pupils bilaterally equal and reactive, pallors not present Chest: Normal vesicular breath sounds, no added sounds, equal good air entry bilaterally CVS: S1-S2 irregular, no murmurs, + tachycardia, no gallops, no rubs Abdomen: Soft, nontender, no organomegaly, bowel sounds present Neuro: No focal deficits, no facial deformity, AO x3, power 5/5 in all limbs Extremities: no LE pitting edema Data 07/25/24 05:25 07/25/24 05:25 Micro: Microbiology 07/24/24 13:29 Blood Culture - Preliminary Blood SPECIMEN COLLECTED 07/24/24 13:25 Blood Culture - Preliminary Blood SPECIMEN COLLECTED 07/22/24 14:14 Urine Culture - Final Urine,Voided A&P Assessment and plan (1) Atrial fibrillation with rapid ventricular response: Patient directed to come into the emergency room today after his follow-up with cardiology as outpatient due to A-fib RVR and signs of volume overload. At the time of this assessment heart rate is noted to be between 120 to 132 bpm in A-fib RVR Currently this is on Cardizem infusion at 15 mg/h Discontinue Cardizem gtt. as continues to be in persistent A-fib. Start amiodarone 150 mg IV push over 15 minutes followed by amiodarone gtt. at 1 mg/h. Continue digoxin 125 mcg p.o. daily Start metoprolol 25 mg p.o. twice daily. Jevon to confirm with pharmacy tomorrow if patient was taking metoprolol 100 mg p.o. twice daily at home. Patient himself does not recall this at this present time. Check troponin series Patient's last ischemic evaluation dates back to 2021 where stress test was suggestive of nonischemic cardiomyopathy. (2) Nonischemic congestive cardiomyopathy: Last known ejection fraction of 20% from recent echo on July 07, 2024. (3) Acute on chronic systolic CHF (congestive heart failure), NYHA class 4: Physical exam with crackles bilaterally to auscultation. Chest x-ray showing bilateral pulmonary congestion. Clinical impression that of acute on chronic systolic CHF exacerbation. Lasix 40 mg IV now. Depending on urine output and blood pressure response, will order further doses. Strict UMANG monitoring, serial creatinine check. Patient reports compliance with home Lasix regimen. He is planned for LifeVest and ICD placement as outpatient. Plan Hold Entresto for now given soft blood pressure between 0770-1868 systolic. Need blood pressure room to start metoprolol today. DVT prophylaxis: Eliquis 5 mg p.o. twice daily to continue Full code July 23, 2024 Heart rate is better controlled today on amiodarone drip. Will transition to po amiodarone 400mg BID today once completes iv insfuison. Home med list confirmed from pharmacy, patient is not taking any metoprolol in a long time. He has been on cardizem and digoxin only. will up titrate metoprolol to 50mg BID today, hr currently 90-100. Urine outout is 700 cc this morning. Start Lasix 40mg IVP q12h with close monitoring of renal function and urine output. Additionally add Ceftriaxone and azithromycin for possibility of CAP given low grade fever. Resp viral panel is negative today July 24, 2024 Patient's rhythm continues to be A-fib, however rate is much better controlled between 80 to 90 bpm. Patient states his breathing feels better today. Saturating 94% on heated high flow. Overnight on review of telemetry patient was noted to have 1 episode of bradycardia on the current combination of medication which is amiodarone 400 twice daily, metoprolol 50 twice daily, digoxin 125 mcg p.o. daily. This afternoon blood pressure is soft 93/56. Given the bradycardia event overnight and soft blood pressure today, we will reduce my dose of metoprolol back to 25 mg p.o. twice daily. Patient will likely benefit from remaining on beta-blockers for the long-term. Hold digoxin for now. QTc interval reviewed normal at 460 ms. Continue amiodarone. 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 Bustillos tomorrow to arrange LifeVest prior to discharge and also to optimize current rate control medications. Last fever yesterday at 3 PM. Currently on ceftriaxone and azithromycin for treatment of pneumonia. Continues to be on heated high flow. Volume status appears to be improving. Transition Lasix from 40 IV every 24 to p.o. Add methylprednisolone 40 mg IV every 24 hours as with underlying comorbidities patient Is High Risk of progression to sever CAP. He is currently on heated high flow with high oxygen requirements. This would need to be weaned down before discharge would be considered appropriate. Overnight noted to be on BiPAP. He does have a history of sleep apnea and uses a CPAP at nighttime. 07/25/2024 Metoprolol was reduced to 25 mg p.o. twice daily yesterday due to noted intermittent pauses. Today heart rate continues to be between 85-100. Continue with metoprolol 25 mg p.o. twice daily, amiodarone 400 mg p.o. twice daily and digoxin 125 mcg p.o. daily. Consulting cardiology for medication optimization. Continuing ceftriaxone and azithromycin for treatment of community-acquired pneumonia. Patient has been afebrile last 48 hours. Clinically feeling better. He is on heated high flow today, brought back down to 50% FiO2 at 40 L/min. Will continue attempts at weaning down his oxygen requirements to where he is able to return home with supplemental O2 via regular nasal cannula. Heated high flow cannot be replicated at home therefore patient will need to be weaned down on his oxygen requirements prior to discharge home. Continue methylprednisolone 40 mg IV every 24 hours. Clinically euvolemic on transition from IV Lasix to oral Lasix. Patient will need an event monitor at the time of discharge. PDMP PDMP Reviewed: Not Reviewed Attestations Medical Necessity Statement*: Needs oxygen weaning down from heated high flow to regular nasal cannula to be able to discharge home as heated high flow cannot be replicated at home. Coding Level of Care Code Acute Code for [facility] Fwd Diagnoses Atrial fibrillation with rapid ventricular response I48.91 Nonischemic congestive cardiomyopathy I42.0 Acute on chronic systolic CHF (congestive heart failure), NYHA class 4 I50.23
[2024-07-25] MEDS: methylPREDNISolone sod succ 40 mg/mL INJ IVP (12:18)
--- NOTE | 2024-07-25 20:03 | P.CONIM_ITS ---
Providers/Reason For Consult 2 Consulting Physician/Specialty*: LOUIS Bustillos MD/cardiology Reason for Consult*: Patient with cardiomyopathy, atrial fibrillation with rapid ventricular rate Requesting Physician: Dr Johanny Tello Attending Physician: Montserrat Tello MD Primary Care Provider: Francis Elmore History of Present Illness History of Present Illness Colin Moya is a 64 year old male with a history of chronic intermittent atrial fibrillation, nonischemic cardiomyopathy, chronic systolic heart failure, is admitted to the hospital with decompensated heart failure, atrial fibrillation with rapid ventricular rate. He is on multiple AV lea blocking agents. He was started on amiodarone during this hospital admission. Cardiology consult is requested for further cardiac evaluation and recommendations. This patient is known to have nonischemic cardiomyopathy. He was found to have progressive decline in his LV systolic function. He is on maximum dose of the Entresto. He presented with increasing shortness of breath. He was found to be atrial fibrillation with rapid ventricular rate. He was admitted to the hospital for further evaluation management. He was started on IV amiodarone on the day of admission. The heart rate seems to be under control at this time. Patient has been having episodes of chest tightness/heaviness prior to the hospital admission. Has not had a significant recurrence since the admission. His troponin T's were unremarkable. No evidence of any myocardial injury. According to the patient, he had a cardiac colorization many years ago in [place]. The results are not known at this point. Patient had a Myocardial perfusion imaging December 2021 and was found to be unremarkable. He did not have any catheterization within the last 10 years. He might have had of 1 angiogram more than 20 years ago in [place]. Details are not available at this time. He has history of abuse of tobacco by chewing. He chews 1 can a day. CVA runs in the family. His dad had a CVA at the age of 35. Mom had a CVA in the 70s. His sister at age of 40 had a CVA as well. No history for myocardial infarction or congestive heart in the family. Pt has been having HTN and Dyslipidemia for the last more than 20 years and has been on medications. He has been having a cough and bringing it occasionally blood-tinged sputum. No hemoptysis. Review of Systems 2 Narrative: CONSTITUTIONAL: No fever or chills. EYES: No blurring of vision or other visual disturbances lately. ENT: No hoarseness of voice, auditory disturbances or sore throat. CARDIOVASCULAR: As mentioned above. RESPIRATORY: No significant cough. GASTROINTESTINAL: No hematemesis or melena. GENITOURINARY: No dysuria or hematuria. INTEGUMENTARY: No skin rashes or history of skin cancer. NEURO: No transient ischemic attacks or amaurosis. PSYCHIATRIC: No history of psychosis or major depression. HEMATOLOGIC: No bleeding disorders or significant anemia. ENDOCRINE: No history of polyuria or polydipsia. MUSCULOSKELETAL: No recent joint pain or swelling. ALLERGY/IMMUNOLOGY: As mentioned above. Medications/Allergies Home Medications ?Medication ?Instructions ?Recorded ?Confirmed ?Last Taken ?Type duloxetine 60 mg capsule,delayed 60 mg PO DAILY 07/22/24 07/22/24 History release sacubitril 97 mg-valsartan 103 mg 1 tab PO BID #180 ta bs 11/27/23 07/22/24 07/22/24 Rx tablet apixaban 5 mg tablet (Eliquis) See Rx Instructions .[place] 12/15/23 07/22/24 07/22/24 Rx .COMPLEX #180 tabs furosemide 40 mg tablet (Lasix) 40 mg PO DAILY #90 tab s 06/01/24 07/22/24 07/22/24 Rx diltiazem HCl 120 mg 120 mg PO DAILY #90 caps 07/22/24 07/22/24 Rx capsule,extended release 24 hr (Cardizem CD) digoxin 125 mcg (0.125 mg) tablet 125 mcg PO DAILY #90 tabs 07/11/24 07/22/24 07/22/24 Rx Allergies Allergy/AdvReac Type Severity Reaction Status Date / Time simvastatin Allergy Severe N/V Verified 07/22/24 09:46 Current Medications Generic Name Dose Route Start Last Admin Trade Name Freq PRN Reason Stop Dose Admin Amiodarone HCl 400 mg 07/23/24 18:00 07/25/24 17:35 Amiodarone 200 Mg Tablet PO 400 mg BID RASHAAD Administration Apixaban 5 mg 07/22/24 18:00 07/25/24 17:35 Apixaban 5 Mg Tablet PO 5 mg BID RASHAAD Administration Azithromycin 500 mg 07/23/24 09:00 07/25/24 08:37 Azithromycin 250 Mg Tablet PO 07/26/24 08:59 500 mg DAILY RASHAAD Administration Protocol Ceftriaxone Sodium 1,000 mg 07/23/24 07:45 07/25/24 08:33 Ceftriaxone 1,000 Mg Sdv IVP 1,000 mg Q24H RASHAAD Administration Protocol Digoxin 125 mcg 07/23/24 09:00 07/24/24 08:26 Digoxin 125 Mcg Tablet PO 125 mcg DAILY RASHAAD Administration Duloxetine HCl 60 mg 07/23/24 09:00 07/25/24 08:37 Duloxetine 60 Mg Capsule PO 60 mg DAILY RASHAAD Administration Furosemide 40 mg 07/25/24 08:00 07/25/24 08:33 Furosemide 40 Mg Tablet PO 40 mg DAILY@0800 RASHAAD Administration Methylprednisolone Sodium Succinate 40 mg 07/24/24 12:30 07/25/24 12:18 Methylprednisolone Sod Succ 40 Mg/Ml Inj IVP 40 mg Q24H RASHAAD Administration Metoprolol Tartrate 25 mg 07/24/24 21:00 07/25/24 08:33 Metoprolol Tartrate 25 Mg Tablet PO 25 mg BID@0900,2100 RASHAAD Administration Pantoprazole Sodium 40 mg 07/23/24 09:00 07/25/24 08:[address] 40 Mg Tablet PO 40 mg DAILY RASHAAD Administration PFSH Acute 2 PFSH: Medical History Atrial fibrillation with rapid ventricular response Pneumonia Bilateral pleural effusion Acute exacerbation of CHF (congestive heart failure) Obstructive sleep apnea SOBOE (shortness of breath on exertion) Postherpetic neuralgia Tobacco use Exercise intolerance Allergic rhinitis Shingles Hypertension Paroxysmal atrial fibrillation Labile blood pressure Dyspnea Hyperlipidemia GIA on CPAP Dizziness Chest discomfort Surgical History No history of previous surgery Family History Father CAD (coronary artery disease) Stroke, Onset Age: 35 Grandmother Cancer Mother Stroke Sister Stroke Denies family history of Diabetes Clotting disorder Dementia Chronic kidney disease (CKD) Suicide Anesthesia complication Bleeding disorder Lung disease Social History Smoking and tobacco/nicotine status: current every day tobacco/nicotine user (Chews tobacco) smokeless tobacco Alcohol intake: current Alcohol intake frequency: few times a month Substance/Drug Use: never Vitals/I&O/Wt Last Vital Signs Temp 97.5 F L 07/25/24 19:25 Pulse 95 07/25/24 19:25 Resp 13 07/25/24 19:25 BP 104/65 07/25/24 19:25 Pulse Ox 91 07/25/24 19:25 O2 Del Method Nasal Cannula 07/25/24 19: O2 Flow Rate 6 07/25/24 16:46 FiO2 42 07/25/24 15:28 07/25/24 07/25/24 07/25/24 06:59 14:59 22:59 Intake Total 480 / 480 360 / 840 Output Total 500 / 1875 500 / 500 300 / 800 Balance -500 / -1155 -20 / -20 60 / 40 Weight last 48 hrs Weight 235 lb 1.6 oz Weight 235 lb 14.4 oz Physical Exam 2 Narrative: GENERAL: The patient is alert and oriented times three. Not in any acute distress. HEENT: No significant pallor, icterus or lymphadenopathy.Oral cavity: There are no mucous membrane lesions. NECK: Trachea appears to be central. No masses noted. No JVD or thyromegaly appreciated. RESPIRATORY: Chest is symmetrical. No intercostals muscle retraction or any accessory muscle activation. There is no chest wall tenderness. Breath sounds are heard bilaterally. No rales or rhonchi heard. No evidence of any consolidation. BREASTS: Deferred. HEART: The heart sounds are normal. No S3 or S4. Short systolic murmur in the lateral border. No diastolic murmurs.. No pericardial rub ABDOMEN: No vessel pulsations or distention. No tenderness. No organomegaly appreciated. Bowel sounds are normally heard. : Deferred. RECTAL: Deferred. LYMPHATIC: No lymphadenopathy noted in the neck. EXTREMITIES: No edema or cyanosis. No clubbing. MUSCULOSKELETAL: No acute joint deformities or swelling SKIN: There are no significant rashes or ecchymosis NEUROPSYCHIATRIC: The patient is alert and oriented x3. Appears to be in a good mood. No tremors or rigidity noted. Data 07/25/24 05:25 07/25/24 05:25 Other Labs: Laboratory Last Values WBC 4.70 10^3/uL (3.29-11.43) 07/25/24 05: RBC 3.75 10^6/uL (3.85-5.65) L 07/25/24 05:25 Hgb 11.20 g/dL (11.27-16.99) L 07/25/24 05:25 Hct 33.8 % (37-53) L 07/25/24 05:25 MCV 90.1 fl (82-101) 07/25/24 05:25 MCH 29.9 pg (27-33) 07/25/24 05:25 MCHC 33.1 g/dL (30-55) 07/25/24 05:25 RDW 12.9 % (12.1-15.1) 07/25/24 05:25 Plt Count 237 10^3/cmm (157-399) 07/25/24 05:25 MPV 11.1 fL (7.4-10.4) H 07/25/24 05:25 Neut % (Auto) 80.2 % 07/25/24 05:25 Lymph % (Auto) 12.3 % 07/25/24 05:25 [place] % (Auto) 6.2 % 07/25/24 05:25 Eos % (Auto) 0.0 % 07/25/24 05:25 Baso % (Auto) 0.2 % 07/25/24 05:25 Neut # (Auto) 3.77 10^3/uL (1.8-7.7) 07/25/24 05:25 Lymph # (Auto) 0.6 10^3/uL (0.8-4.8) L 07/25/24 05:25 [place] # (Auto) 0.3 10^3/uL (0.2-0.9) 07/25/24 05:25 Eos # (Auto) 0.0 10^3/uL (0.0-0.8) 07/25/24 05:25 Baso # (Auto) 0.0 10^3/uL (0.0-0.1) 07/25/24 05:25 Nucleated RBC % (auto) 0 % 07/25/24 05:25 Nucleated RBCs # 0.0 /100WBC 07/25/24 05:25 Specimen Type Arterial 07/22/24 18:19 Sample Site Radial, right 07/22/24 18:19 ABG pH 7.47 (7.35-7.45) H 07/22/24 18:19 ABG pCO2 33.0 mmHg (35-45) L 07/22/24 18:19 ABG pO2 48.1 mmHg (80.0-100.0) L 07/22/24 18:19 ABG HCO3 24.1 mmol/L (22-26) 07/22/24 18:19 ABG O2 Saturation 85.4 07/22/24 18:19 ABG Base Excess 1.1 mmol/L (-2.0-2.0) 07/22/24 18:19 Vivek Test Pos 07/22/24 18:19 A-a O2 Gradient 7.6 mmHg (5-10) 07/22/24 18:19 Hematocrit 44.5 % (42-52) 07/22/24 18:19 Hgb O2 Saturation 83.7 % (95-100) L 07/22/24 18:19 Carboxyhemoglobin 2.0 %THgb (0.4-20.1) 07/22/24 18:19 Methemoglobin 0.0 % (0.4-1.5) L 07/22/24 18:19 Total Hemoglobin 14.5 g/dL (14-18) 07/22/24 18:19 Sodium 139.0 mmol/L (131-143) 07/22/24 18:19 Potassium 3.3 mmol/L (3.5-5.0) L 07/22/24 18:19 Glucose 173.0 mg/dL (70-115) H 07/22/24 18:19 Ionized Calcium 1.1 mmol/L (1.1-1.4) 07/22/24 18:19 O2 Delivery Device Oxy mask 07/22/24 18:19 O2 Liters/Min 11.0 % 07/22/24 18:19 Broadcast Correspondent ID glc 07/22/24 18:19 Sodium 137 mmol/L (136-145) 07/25/24 05:25 Potassium 3.8 mmol/L (3.5-5.1) 07/25/24 05:25 Chloride 100 mmol/L (98-107) 07/25/24 05:25 Carbon Dioxide 26 mmol/L (22-29) 07/25/24 05:25 Anion Gap 14.8 (5-19) 07/25/24 05:25 BUN 26 mg/dL (8-23) H 07/25/24 05:25 Creatinine 1.0 mg/dL (0.7-1.2) 07/25/24 05:25 GFR Calculation 75.5 mL/min (90-130) L 07/25/24 05:25 Glucose 134 mg/dL (65-115) H 07/25/24 05:25 Calculated Osmolality 291 mOsm/kg (285-295) 07/25/24 05:25 Calcium 8.5 mg/dL (8.5-10.5) 07/25/24 05:25 Total Bilirubin 0.6 mg/dL (0.15-1.2) 07/25/24 05:25 AST 10 U/L (0-40) 07/25/24 05:25 ALT 11 U/L (0-41) 07/25/24 05:25 Alkaline Phosphatase 70 U/L (40-130) 07/25/24 05:25 Troponin T Baseline 19 ng/L (0-15) H 07/23/24 02:57 Troponin T 120 Minute 17.24 ng/L (0-15) H 07/23/24 04:46 Delta Troponin T -1.76 ABS# (0-10) L 07/23/24 04:46 Troponin T Hi Sens 6Hr 18.86 ng/L (0-15) H 07/23/24 08:44 Troponin T Hi Sens 6Hr Delta -0.14 ng/L (0-12) L 07/23/24 08:44 Total Protein 6.0 g/dL (6.6-8.7) L 07/25/24 05:25 Albumin 2.9 g/dL (3.5-5.2) L 07/25/24 05:25 Globulin 3.1 g/dL (1.3-4.6) 07/25/24 05:25 Procalcitonin 0.07 ng/mL (0-0.5) 07/22/24 17:32 TSH 1.29 uIU/mL (0.27-4.20) 07/22/24 17:32 Urine Color [place] (Yellow) A 07/22/24 14:14 Urine Appearance Clear (CLEAR) 07/22/24 14:14 Urine pH 5.5 (5-7) 07/22/24 14:14 Ur Specific [place] 1.019 (1.005-1.030) 07/22/24 14:14 Urine Protein 1+ (Negative) A 07/22/24 14:14 Urine Glucose (UA) Negative (Normal) 07/22/24 14:14 Urine Ketones Trace (Negative) 07/22/24 14:14 Urine Blood 2+ (Negative) A 07/22/24 14:14 Urine Nitrate Negative (Negative) 07/22/24 14:14 Urine Bilirubin 1+ (Negative) H 07/22/24 14:14 Urine Urobilinogen 1.0 mg/dL (Negative) 07/22/24 14:14 Ur Leukocyte Esterase Trace (Negative) A 07/22/24 14:14 Urine RBC 6-10 /hpf (0-2) 07/22/24 14:14 Urine WBC 0-5 /hpf (0-5) 07/22/24 14:14 Ur Squamous Epith Cells 0-5 /hpf (0-5) 07/22/24 14:14 Amorphous Sediment Not Reportable 07/22/24 14:14 Urine Bacteria None seen /hpf (NONE) 07/22/24 14:14 Hyaline Casts 1.65 /lpf 07/22/24 14:14 Digoxin 0.7 ng/mL (0.6-1.2) 07/22/24 11:43 Adenovirus (PCR) Not detected (NOT DETECT) 07/23/24 08:10 C. pneumoniae DNA (PCR) Not detected (NOT DETECT) 07/23/24 08:10 Coronavirus 229E (PCR) Not detected (NOT DETECT) 07/23/24 08:10 Human Metapneumovir PCR Not detected (NOT DETECT) 07/23/24 08:10 Influenza A (H1) PCR Not detected (NOT DETECT) 07/23/24 08:10 Influ A (H1/09) PCR Not detected (NOT DETECT) 07/23/24 08:10 Influenza A (H3) PCR Not detected (NOT DETECT) 07/23/24 08:10 Influenza Type A (PCR) Not detected (NOT DETECT) 07/23/24 08:10 Influenza Type B (PCR) Not detected (NOT DETECT) 07/23/24 08:10 M. pneumoniae (PCR) Not detected (NOT DETECT) 07/23/24 08:10 Parainfluenza 1 (PCR) Not detected (NOT DETECT) 07/23/24 08:10 Parainfluenza 2 (PCR) Not detected (NOT DETECT) 07/23/24 08:10 Parainfluenza 3 (PCR) Not detected (NOT DETECT) 07/23/24 08:10 Parainfluenza 4 (PCR) Not detected (NOT DETECT) 07/23/24 08:10 RSV Type A (PCR) Not detected (NOT DETECT) 07/23/24 08:10 RSV Type B (PCR) Not detected (NOT DETECT) 07/23/24 08:10 Entero/Rhino (PCR) Not detected (NOT DETECT) 07/23/24 08:10 SARS-CoV-2 (PCR) Not detected (NOT DETECT) 07/23/24 08:10 Micro: Microbiology 07/24/24 13:29 Blood Culture - Preliminary Blood NEGATIVE TO DATE 07/24/24 13:25 Blood Culture - Preliminary Blood NEGATIVE TO DATE Other data: Echocardiogram on 07/07/2024 Severe diffuse hypokinesia of the left ventricle with an ejection fraction of 20%. Moderately dilated LV cavity. Severely increased left atrial size. Possibly normal RV size and ejection fraction. Thickened mitral valve. Moderate mitral annular calcification. Minimally thickened aortic valve. There is no pericardial effusion. There are no intracardiac masses. Compared to the study from 01/12/2023, the ejection fraction has significantly decreased from 30-35% to 20%. A&P Assessment and plan (1) Paroxysmal atrial fibrillation with rapid ventricular response: The patient is on amiodarone, metoprolol and digoxin. The heart rate seems to be under control at this time. He is also on oral anticoagulation. (2) Chest discomfort: The etiology of the patient's chest pain/discomfort is not clear. In view of the significant worsening of the LV systolic function, possibility of coronary ischemia causing this is a consideration. Arrhythmia and heart failure also are contributing factors. (3) Acute on chronic systolic CHF (congestive heart failure), NYHA class 4: The heart failure is fairly compensated at this time. May continue on the current medications. (4) Nonischemic congestive cardiomyopathy: Patient had LV ejection fraction around 65% by MPI in December 2021. In March 2022, the ejection fraction was 43% by echocardiogram. In January 2023, the ejection fraction went down to 30 to 35%. In July of this year, the ejection fraction went further down to 20%. The etiology is not clear. Arrhythmia could be a contributing factor. Possibly underlying coronary ischemia causing this also is a consideration especially in view of his episodes of chest pain/discomfort. (5) Benign essential HTN: The blood pressure is fairly under control. May continue on the current medication. (6) Hyperlipidemia: May continue on the current management. Plan For further evaluation of his cardiac status, a cardiac catheterization may be appropriate especially in view of the patient's ongoing episodes of chest tightness/discomfort. There are drastic drop in the LV ejection fraction also is a major concern. This was discussed with patient in detail. Patient is wanting to go home and come back for this procedure. Because of the Eliquis, he need to be off the Eliquis for 48 hours before proceeding with the angiogram. PDMP PDMP Reviewed: Not Reviewed Coding Level of Care Code 24585 Diagnoses Paroxysmal atrial fibrillation with rapid ventricular response I48.0 Chest discomfort R07.89 Acute on chronic systolic CHF (congestive heart failure), NYHA class 4 I50.23 Nonischemic congestive cardiomyopathy I42.0 Benign essential HTN I10 Mixed hyperlipidemia E78.2 Hyperlipidemia type: mixed hyperlipidemia
[2024-07-26] VITALS (8 sets, daily range): BP systolic 114–124; BP diastolic 81–94; PULSE 82–104; RESP 19–21; TEMP 36.4–37.1; O2SAT 91–97
[2024-07-26 05:02] LABS: Basophils % 0.1 %; Hematocrit 36.3 % (37-53); Lymphocytes # 0.7 10^3/uL (0.8-4.8); Lymphocytes % 10.2 %; Mean Corpuscular HGB Conc 32.8 g/dL (30-55); Mean Corpuscular Hemoglobin 29.7 pg (27-33); Mean Corpuscular Volume 90.5 fl (82-101); Mean Platelet Volume 11.2 fL (7.4-10.4); Monocytes # 0.4 10^3/uL (0.2-0.9); Monocytes % 5.2 %; Neutrophils % 83.2 %; Nucleated Red Blood Cells % 0 %; Platelet Count 303 10^3/cmm (157-399); Red Blood Count 4.01 10^6/uL (3.85-5.65); Red Cell Distribution Width 13.2 % (12.1-15.1); White Blood Count 7.09 10^3/uL (3.29-11.43)
[2024-07-26 05:28] LABS: Alanine Aminotransferase 18 U/L (0-41); Alkaline Phosphatase 68 U/L (40-130); Anion Gap 15.9 (5-19); Aspartate Amino Transferase 15 U/L (0-40); Blood Urea Nitrogen 33 mg/dL (8-23); Calcium 8.8 mg/dL (8.5-10.5); Carbon Dioxide 25 mmol/L (22-29); Chloride 100 mmol/L (98-107); Creatinine Clr Calc Pharmacy 85.3782; Globulin 3.2 g/dL (1.3-4.6); Glomerular Filtration Rate 67.6 mL/min (90-130); Glucose 122 mg/dL (65-115); Osmolality Calculated 293 mOsm/kg (285-295); Potassium 3.9 mmol/L (3.5-5.1); Sodium 137 mmol/L (136-145); Total Bilirubin 0.4 mg/dL (0.15-1.2); Total Protein 6.2 g/dL (6.6-8.7)
[2024-07-26] MEDS: cefTRIAXone 1,000 mg SDV 1000 MG IVP (08:20)
[2024-07-26] MEDS: duloxetine 60 mg Capsule PO (08:20)
[2024-07-26] MEDS: apixaban 5 mg Tablet PO (08:20)
[2024-07-26] MEDS: digoxin 125 mcg Tablet PO (08:20)
[2024-07-26] MEDS: pantoprazole DR 40 mg Tablet PO (08:20)
[2024-07-26] MEDS: metoprolol tartrate 25 mg Tablet PO (08:21)
[2024-07-26] MEDS: amiodarone 200 mg Tablet 400 MG PO (08:24)
[2024-07-26] MEDS: FUROsemide 40 mg Tablet PO (08:24)
--- NOTE | 2024-07-26 09:14 | PM.PN ---
Subjective Subjective: The patient is feeling okay. Denies any chest pain. Shortness of breath is significantly improved. Telemetry shows atrial fibrillation with a controlled ventricular response rate. Patient is wanting to go home and would like to do the cardiac catheterization as an outpatient Medications: Medication Review Details: Current Medications Acetaminophen (Acetaminophen 325 Mg Tablet) 650 mg PO Q6H PRN PRN Reason: Mild/Mod Pain Or Temp >/= 101 Albuterol Sulfate (Albuterol 2.5 Mg/0.5 Ml Neb) 2.5 mg INHALATION Q4H.RESPIRATORY PRN PRN Reason: WHEEZING Amiodarone HCl (Amiodarone 200 Mg Tablet) 400 mg PO BID [facility] Last Admin: 07/26/24 08:24 Dose: 400 mg Apixaban (Apixaban 5 Mg Tablet) 5 mg PO BID [facility] Last Admin: 07/26/24 08:20 Dose: 5 mg Ceftriaxone Sodium (Ceftriaxone 1,000 Mg Sdv) 1,000 mg IVP Q24H [facility]; Protocol Last Admin: 07/26/24 08:20 Dose: 1,000 mg Digoxin (Digoxin 125 Mcg Tablet) 125 mcg PO DAILY [facility] Last Admin: 07/26/24 08:20 Dose: 125 mcg Duloxetine HCl (Duloxetine 60 Mg Capsule) 60 mg PO DAILY [facility] Last Admin: 07/26/24 08:20 Dose: 60 mg Furosemide (Furosemide 40 Mg Tablet) 40 mg PO DAILY@0800 [facility] Last Admin: 07/26/24 08:24 Dose: 40 mg Methylprednisolone Sodium Succinate (Methylprednisolone Sod Succ 40 Mg/Ml Inj) 40 mg IVP Q24H [facility] Last Admin: 07/25/24 12:18 Dose: 40 mg Metoprolol Tartrate (Metoprolol Tartrate 25 Mg Tablet) 25 mg PO BID@0900,2100 [facility] Last Admin: 07/26/24 08:21 Dose: 25 mg Morphine Sulfate (Morphine 4 Mg/Ml Sdv 1 Ml) 2 mg IVP Q4H PRN PRN Reason: SEVERE PAIN Naloxone HCl (Naloxone 0.4 Mg/Ml Sdv) 0.1 mg IVP Q2M PRN PRN Reason: OPIATERV Ondansetron HCl (Ondansetron 2 Mg/Ml Sdv 2 Ml) 4 mg IVP Q8H PRN PRN Reason: vomiting, or N/V if npo Pantoprazole Sodium (Pantoprazole Dr 40 Mg Tablet) 40 mg PO DAILY [facility] Last Admin: 07/26/24 08:20 Dose: 40 mg Vitals/I&O/Wt Last Vital Signs Temp 97.6 F 07/26/24 07:33 Pulse 104 H 07/26/24 08:20 Resp 21 H 07/26/24 07:33 BP 121/81 07/26/24 07:33 Pulse Ox 91 07/26/24 07:33 O2 Del Method Nasal Cannula 07/26/24 07:33 O2 Flow Rate 6 07/25/24 16:46 FiO2 42 07/25/24 15:28 07/25/24 07/26/24 07/26/24 22:59 06:59 14:59 Intake Total 710 / 1190 200 / 1390 Output Total 500 / 1000 450 / 1450 Balance 210 / 190 -250 / -60 Weight last 48 hrs Weight 235 lb Weight 235 lb 1.6 oz Physical Exam Narrative: GENERAL: The patient is alert and oriented times three. Not in any acute distress. HEENT: No significant pallor, icterus or lymphadenopathy.Oral cavity: There are no mucous membrane lesions. NECK: Trachea appears to be central. No masses noted. No JVD or thyromegaly appreciated. RESPIRATORY: Chest is symmetrical. No intercostals muscle retraction or any accessory muscle activation. There is no chest wall tenderness. Breath sounds are heard bilaterally. Occasional scattered wheezing BREASTS: Deferred. HEART: The heart sounds are normal. No S3 or S4. Short systolic murmur in the lateral border. No diastolic murmurs.. No pericardial rub ABDOMEN: No vessel pulsations or distention. No tenderness. No organomegaly appreciated. Bowel sounds are normally heard. : Deferred. RECTAL: Deferred. LYMPHATIC: No lymphadenopathy noted in the neck. EXTREMITIES: No edema or cyanosis. No clubbing. MUSCULOSKELETAL: No acute joint deformities or swelling SKIN: There are no significant rashes or ecchymosis NEUROPSYCHIATRIC: The patient is alert and oriented x3. Appears to be in a good mood. No tremors or rigidity noted. Data 07/26/24 04:46 07/26/24 04:46 Other Labs: Laboratory Last Values WBC 7.09 10^3/uL (3.29-11.43) 07/26/24 04:46 RBC 4.01 10^6/uL (3.85-5.65) 07/26/24 04:46 Hgb 11.90 g/dL (11.27-16.99) 07/26/24 04:46 Hct 36.3 % (37-53) L 07/26/24 04:46 MCV 90.5 fl (82-101) 07/26/24 04:46 MCH 29.7 pg (27-33) 07/26/24 04:46 MCHC 32.8 g/dL (30-55) 07/26/24 04:46 RDW 13.2 % (12.1-15.1) 07/26/24 04:46 Plt Count 303 10^3/cmm (157-399) 07/26/24 04:46 MPV 11.2 fL (7.4-10.4) H 07/26/24 04:46 Neut % (Auto) 83.2 % 07/26/24 04:46 Lymph % (Auto) 10.2 % 07/26/24 04:46 [place] % (Auto) 5.2 % 07/26/24 04:46 Eos % (Auto) 0.0 % 07/26/24 04:46 Baso % (Auto) 0.1 % 07/26/24 04:46 Neut # (Auto) 5.90 10^3/uL (1.8-7.7) 07/26/24 04:46 Lymph # (Auto) 0.7 10^3/uL (0.8-4.8) L 07/26/24 04:46 [place] # (Auto) 0.4 10^3/uL (0.2-0.9) 07/26/24 04:46 Eos # (Auto) 0.0 10^3/uL (0.0-0.8) 07/26/24 04:46 Baso # (Auto) 0.0 10^3/uL (0.0-0.1) 07/26/24 04:46 Nucleated RBC % (auto) 0 % 07/26/24 04:46 Nucleated RBCs # 0.0 /100WBC 07/26/24 04:46 Specimen Type Arterial 07/22/24 18:19 Sample Site Radial, right 07/22/24 18:19 ABG pH 7.47 (7.35-7.45) H 07/22/24 18:19 ABG pCO2 33.0 mmHg (35-45) L 07/22/24 18:19 ABG pO2 48.1 mmHg (80.0-100.0) L 07/22/24 18:19 ABG HCO3 24.1 mmol/L (22-26) 07/22/24 18:19 ABG O2 Saturation 85.4 07/22/24 18:19 ABG Base Excess 1.1 mmol/L (-2.0-2.0) 07/22/24 18:19 Vivek Test Pos 07/22/24 18:19 A-a O2 Gradient 7.6 mmHg (5-10) 07/22/24 18:19 Hematocrit 44.5 % (42-52) 07/22/24 18:19 Hgb O2 Saturation 83.7 % (95-100) L 07/22/24 18:19 Carboxyhemoglobin 2.0 %THgb (0.4-20.1) 07/22/24 18:19 Methemoglobin 0.0 % (0.4-1.5) L 07/22/24 18:19 Total Hemoglobin 14.5 g/dL (14-18) 07/22/24 18:19 Sodium 139.0 mmol/L (131-143) 07/22/24 18:19 Potassium 3.3 mmol/L (3.5-5.0) L 07/22/24 18:19 Glucose 173.0 mg/dL (70-115) H 07/22/24 18:19 Ionized Calcium 1.1 mmol/L (1.1-1.4) 07/22/24 18:19 O2 Delivery Device Oxy mask 07/22/24 18:19 O2 Liters/Min 11.0 % 07/22/24 18:19 Assistant Hairstylist ID glc 07/22/24 18:19 Sodium 137 mmol/L (136-145) 07/26/24 04:46 Potassium 3.9 mmol/L (3.5-5.1) 07/26/24 04:46 Chloride 100 mmol/L (98-107) 07/26/24 04:46 Carbon Dioxide 25 mmol/L (22-29) 07/26/24 04:46 Anion Gap 15.9 (5-19) 07/26/24 04:46 BUN 33 mg/dL (8-23) H 07/26/24 04:46 Creatinine 1.1 mg/dL (0.7-1.2) 07/26/24 04:46 GFR Calculation 67.6 mL/min (90-130) L 07/26/24 04:46 Glucose 122 mg/dL (65-115) H 07/26/24 04:46 Calculated Osmolality 293 mOsm/kg (285-295) 07/26/24 04:46 Calcium 8.8 mg/dL (8.5-10.5) 07/26/24 04:46 Total Bilirubin 0.4 mg/dL (0.15-1.2) 07/26/24 04:46 AST 15 U/L (0-40) 07/26/24 04:46 ALT 18 U/L (0-41) 07/26/24 04:46 Alkaline Phosphatase 68 U/L (40-130) 07/26/24 04:46 Troponin T Baseline 19 ng/L (0-15) H 07/23/24 02:57 Troponin T 120 Minute 17.24 ng/L (0-15) H 07/23/24 04:46 Delta Troponin T -1.76 ABS# (0-10) L 07/23/24 04:46 Troponin T Hi Sens 6Hr 18.86 ng/L (0-15) H 07/23/24 08:44 Troponin T Hi Sens 6Hr Delta -0.14 ng/L (0-12) L 07/23/24 08:44 Total Protein 6.2 g/dL (6.6-8.7) L 07/26/24 04:46 Albumin 3.0 g/dL (3.5-5.2) L 07/26/24 04:46 Globulin 3.2 g/dL (1.3-4.6) 07/26/24 04:46 Procalcitonin 0.07 ng/mL (0-0.5) 07/22/24 17:32 TSH 1.29 uIU/mL (0.27-4.20) 07/22/24 17:32 Urine Color [place] (Yellow) A 07/22/24 14:14 Urine Appearance Clear (CLEAR) 07/22/24 14:14 Urine pH 5.5 (5-7) 07/22/24 14:14 Ur Specific [place] 1.019 (1.005-1.030) 07/22/24 14:14 Urine Protein 1+ (Negative) A 07/22/24 14:14 Urine Glucose (UA) Negative (Normal) 07/22/24 14:14 Urine Ketones Trace (Negative) 07/22/24 14:14 Urine Blood 2+ (Negative) A 07/22/24 14:14 Urine Nitrate Negative (Negative) 07/22/24 14:14 Urine Bilirubin 1+ (Negative) H 07/22/24 14:14 Urine Urobilinogen 1.0 mg/dL (Negative) 07/22/24 14:14 Ur Leukocyte Esterase Trace (Negative) A 07/22/24 14:14 Urine RBC 6-10 /hpf (0-2) 07/22/24 14:14 Urine WBC 0-5 /hpf (0-5) 07/22/24 14:14 Ur Squamous Epith Cells 0-5 /hpf (0-5) 07/22/24 14:14 Amorphous Sediment Not Reportable 07/22/24 14:14 Urine Bacteria None seen /hpf (NONE) 07/22/24 14:14 Hyaline Casts 1.65 /lpf 07/22/24 14:14 Digoxin 0.7 ng/mL (0.6-1.2) 07/22/24 11:43 Adenovirus (PCR) Not detected (NOT DETECT) 07/23/24 08:10 C. pneumoniae DNA (PCR) Not detected (NOT DETECT) 07/23/24 08:10 Coronavirus 229E (PCR) Not detected (NOT DETECT) 07/23/24 08:10 Human Metapneumovir PCR Not detected (NOT DETECT) 07/23/24 08:10 Influenza A (H1) PCR Not detected (NOT DETECT) 07/23/24 08:10 Influ A (H1/09) PCR Not detected (NOT DETECT) 07/23/24 08:10 Influenza A (H3) PCR Not detected (NOT DETECT) 07/23/24 08:10 Influenza Type A (PCR) Not detected (NOT DETECT) 07/23/24 08:10 Influenza Type B (PCR) Not detected (NOT DETECT) 07/23/24 08:10 M. pneumoniae (PCR) Not detected (NOT DETECT) 07/23/24 08:10 Parainfluenza 1 (PCR) Not detected (NOT DETECT) 07/23/24 08:10 Parainfluenza 2 (PCR) Not detected (NOT DETECT) 07/23/24 08:10 Parainfluenza 3 (PCR) Not detected (NOT DETECT) 07/23/24 08:10 Parainfluenza 4 (PCR) Not detected (NOT DETECT) 07/23/24 08:10 RSV Type A (PCR) Not detected (NOT DETECT) 07/23/24 08:10 RSV Type B (PCR) Not detected (NOT DETECT) 07/23/24 08:10 Entero/Rhino (PCR) Not detected (NOT DETECT) 07/23/24 08:10 SARS-CoV-2 (PCR) Not detected (NOT DETECT) 07/23/24 08:10 Micro: Microbiology 07/24/24 13:29 Blood Culture - Preliminary Blood NEGATIVE TO DATE 07/24/24 13:25 Blood Culture - Preliminary Blood NEGATIVE TO DATE A&P Assessment and plan (1) Paroxysmal atrial fibrillation with rapid ventricular response: The patient is on amiodarone, metoprolol and digoxin. The heart rate seems to be under control at this time. He is also on oral anticoagulation. Myocardial on the current medication for the time being (2) Chest discomfort: The etiology of the patient's chest pain/discomfort is not clear. In view of the significant worsening of the LV systolic function, possibility of coronary ischemia causing this is a consideration. Arrhythmia and heart failure also are contributing factors. (3) Acute on chronic systolic CHF (congestive heart failure), NYHA class 4: The heart failure is fairly compensated at this time. May continue on the current medications. (4) Nonischemic congestive cardiomyopathy: Patient had LV ejection fraction around 65% by MPI in December 2021. In March 2022, the ejection fraction was 43% by echocardiogram. In January 2023, the ejection fraction went down to 30 to 35%. In July of this year, the ejection fraction went further down to 20%. The etiology is not clear. Arrhythmia could be a contributing factor. Possibly underlying coronary ischemia causing this also is a consideration especially in view of his episodes of chest pain/discomfort. The insurance is still working on his LifeVest. May continue on the Entresto (5) Benign essential HTN: The blood pressure is fairly under control. May continue on the current medication. (6) Hyperlipidemia: May continue on the current management. Plan For further evaluation of his cardiac status, a cardiac catheterization may be appropriate especially in view of the patient's ongoing episodes of chest tightness/discomfort. There are drastic drop in the LV ejection fraction also is a major concern. This was discussed with patient in detail. Patient is wanting to go home and come back for this procedure. Because of the Eliquis, he need to be off the Eliquis for 48 hours before proceeding with the angiogram. PDMP PDMP Reviewed: Not Reviewed Attestations Medical Necessity Statement*: Possible discharge home today Coding Level of Care Code 78335 Diagnoses Paroxysmal atrial fibrillation with rapid ventricular response I48.0 Chest discomfort R07.89 Acute on chronic systolic CHF (congestive heart failure), NYHA class 4 I50.23 Nonischemic congestive cardiomyopathy I42.0 Benign essential HTN I10 Mixed hyperlipidemia E78.2 Hyperlipidemia type: mixed hyperlipidemia
--- NOTE | 2024-07-26 10:56 | PC.NURSE ---
Jef August RN and I reviewed use of 14 day cardiac event monitor with patient, including use of cell phone, patches, and charging of both the device and cell phone. We reviewed the 24-hour number for him to contact with any questions/concerns and provided him with directions on returning the device with his appointment on 08/09/24. Patient verbalizes understanding and returned verbalization of all instructions.
--- NOTE | 2024-07-26 11:25 | PM.DCS ---
Discharge Providers Date of Admission: 07/22/24 13:34 Date of Discharge: July 26, 2024 Attending Provider at Admission: Montserrat Tello MD Attending Provider at Discharge: Enrqiue Cleveland MD Primary Care Provider: Francis Elmore Diagnoses at Discharge Discharge Diagnosis (1) Paroxysmal atrial fibrillation with rapid ventricular response: Status: Resolved (2) Chest discomfort: Status: Resolved (3) Acute on chronic systolic CHF (congestive heart failure), NYHA class 4: Status: Resolved (4) Nonischemic congestive cardiomyopathy: Status: Resolved (5) Benign essential HTN: Status: Acute (6) Hyperlipidemia: Status: Acute Qualifiers: Hyperlipidemia type: mixed hyperlipidemia Qualified Code(s): E78.2 - Mixed hyperlipidemia Reason for Visit Reason for Visit: afib Hospital Course Hospital Course This is a 64-year-old male with a past medical history of atrial fibrillation, bilateral pleural effusion, obstructive sleep apnea, hypertension, hyperlipidemia for shortness of breath Patient was admitted to [facility] for A-fib with RVR - On Cardizem drip due to persistent A-fib, was transition to amiodarone drip - Transitioned off to amiodarone drip - Discharged on digoxin, metoprolol, p.o. amiodarone For acute systolic CHF exacerbation, history of nonischemic cardiomyopathy EF down to 20%,, received inpatient diuresis, overall clinically improved, continue Bumex 1 mg twice daily as outpatient Patient's Entresto was held on discharge due to soft blood pressures Management IV antibiotics due to concerns for pneumonia, completed antibiotic therapy Acute hypoxic respiratory failure secondary to fluid overload, pneumonia, requiring heated high flow, discharged on room air due to Patient had complaints of atypical chest pain during hospitalization, no chest pain complaints on discharge, patient was offered coronary angiogram as inpatient however he declined, understands morbidity and mortality, voices understanding, all questions answered, will be discharged with close follow-up cardiology as outpatient. Follow-up with cardiology as outpatient for consideration of coronary angiography. Patient was advised if he were to have any recurrent chest pain to go to the emergency room. LifeVest, will need to follow-up with cardiology as outpatient -Patient reluctant to stay as inpatient for LifeVest placement, understands morbidity and mortality, voices understanding, all questions answered, follow-up with cardiology as outpatient - Patient was advised if he were to have any chest pain to me in the emergency room Physical Exam Const: COMMON NORMALS: no acute distress and patient oriented x3 Resp: COMMON NORMALS: normal respiratory effort, No retractions, No use of accessory muscles and clear to auscultation bilaterally AUSCULTATION: clear to auscultation bilaterally Cardio: COMMON NORMALS: regular rate, regular rhythm, S1 normal heart sound present and S2 normal heart sound present RATE: regular rate RHYTHM: regular rhythm HEART SOUNDS: S1 normal heart sound present and S2 normal heart sound present GI: COMMON NORMALS: Normal to inspection, nondistended, normoactive bowel sounds present and non-tender Extremity: COMMON NORMALS: no pedal edema Neuro: COMMON NORMALS: patient oriented x3 Psych: COMMON NORMALS: mental status grossly normal Discharge Data Studies Completed and Pending Completed Studies During Hospitalization Category Date Time Status XR chest 1V portable [id number] Stat Exams 07/22/24 10:51 Completed Pending at discharge Category Date Time Status Blood Culture Stat Lab 07/24/24 13:29 Results Radiology Impressions Chest X-Ray 07/22/24 10:51 IMPRESSION: 1. Cardiac enlargement with pulmonary vascular congestion suggesting low-grade CHF. 2. Diffuse interstitial infiltrate in the mid and upper LEFT lung that could represent interstitial pneumonia or pulmonary edema. Laboratory Results WBC 7.09 10^3/uL (3.29-11.43) 07/26/24 04:46 RBC 4.01 10^6/uL (3.85-5.65) 07/26/24 04:46 Hgb 11.90 g/dL (11.27-16.99) 07/26/24 04:46 Hct 36.3 % (37-53) L 07/26/24 04:46 MCV 90.5 fl (82-101) 07/26/24 04:46 MCH 29.7 pg (27-33) 07/26/24 04:46 MCHC 32.8 g/dL (30-55) 07/26/24 04:46 RDW 13.2 % (12.1-15.1) 07/26/24 04:46 Plt Count 303 10^3/cmm (157-399) 07/26/24 04:46 MPV 11.2 fL (7.4-10.4) H 07/26/24 04:46 Neut % (Auto) 83.2 % 07/26/24 04:46 Lymph % (Auto) 10.2 % 07/26/24 04:46 [place] % (Auto) 5.2 % 07/26/24 04:46 Eos % (Auto) 0.0 % 07/26/24 04:46 Baso % (Auto) 0.1 % 07/26/24 04:46 Neut # (Auto) 5.90 10^3/uL (1.8-7.7) 07/26/24 04:46 Lymph # (Auto) 0.7 10^3/uL (0.8-4.8) L 07/26/24 04:46 [place] # (Auto) 0.4 10^3/uL (0.2-0.9) 07/26/24 04:46 Eos # (Auto) 0.0 10^3/uL (0.0-0.8) 07/26/24 04:46 Baso # (Auto) 0.0 10^3/uL (0.0-0.1) 07/26/24 04:46 Nucleated RBC % (auto) 0 % 07/26/24 04:46 Nucleated RBCs # 0.0 /100WBC 07/26/24 04:46 Specimen Type Arterial 07/22/24 18:19 Sample Site Radial, right 07/22/24 18:19 ABG pH 7.47 (7.35-7.45) H 07/22/24 18:19 ABG pCO2 33.0 mmHg (35-45) L 07/22/24 18:19 ABG pO2 48.1 mmHg (80.0-100.0) L 07/22/24 18:19 ABG HCO3 24.1 mmol/L (22-26) 07/22/24 18:19 ABG O2 Saturation 85.4 07/22/24 18:19 ABG Base Excess 1.1 mmol/L (-2.0-2.0) 07/22/24 18:19 Vivek Test Pos 07/22/24 18:19 A-a O2 Gradient 7.6 mmHg (5-10) 07/22/24 18:19 Hematocrit 44.5 % (42-52) 07/22/24 18:19 Hgb O2 Saturation 83.7 % (95-100) L 07/22/24 18:19 Carboxyhemoglobin 2.0 %THgb (0.4-20.1) 07/22/24 18:19 Methemoglobin 0.0 % (0.4-1.5) L 07/22/24 18:19 Total Hemoglobin 14.5 g/dL (14-18) 07/22/24 18:19 Sodium 139.0 mmol/L (131-143) 07/22/24 18:19 Potassium 3.3 mmol/L (3.5-5.0) L 07/22/24 18:19 Glucose 173.0 mg/dL (70-115) H 07/22/24 18:19 Ionized Calcium 1.1 mmol/L (1.1-1.4) 07/22/24 18:19 O2 Delivery Device Oxy mask 07/22/24 18:19 O2 Liters/Min 11.0 % 07/22/24 18:19 Legal Document Assistant ID glc 07/22/24 18:19 Sodium 137 mmol/L (136-145) 07/26/24 04:46 Potassium 3.9 mmol/L (3.5-5.1) 07/26/24 04:46 Chloride 100 mmol/L (98-107) 07/26/24 04:46 Carbon Dioxide 25 mmol/L (22-29) 07/26/24 04:46 Anion Gap 15.9 (5-19) 07/26/24 04:46 BUN 33 mg/dL (8-23) H 07/26/24 04:46 Creatinine 1.1 mg/dL (0.7-1.2) 07/26/24 04:46 GFR Calculation 67.6 mL/min (90-130) L 07/26/24 04:46 Glucose 122 mg/dL (65-115) H 07/26/24 04:46 Calculated Osmolality 293 mOsm/kg (285-295) 07/26/24 04:46 Calcium 8.8 mg/dL (8.5-10.5) 07/26/24 04:46 Total Bilirubin 0.4 mg/dL (0.15-1.2) 07/26/24 04:46 AST 15 U/L (0-40) 07/26/24 04:46 ALT 18 U/L (0-41) 07/26/24 04:46 Alkaline Phosphatase 68 U/L (40-130) 07/26/24 04:46 Troponin T Baseline 19 ng/L (0-15) H 07/23/24 02:57 Troponin T 120 Minute 17.24 ng/L (0-15) H 07/23/24 04:46 Delta Troponin T -1.76 ABS# (0-10) L 07/23/24 04:46 Troponin T Hi Sens 6Hr 18.86 ng/L (0-15) H 07/23/24 08:44 Troponin T Hi Sens 6Hr Delta -0.14 ng/L (0-12) L 07/23/24 08:44 Total Protein 6.2 g/dL (6.6-8.7) L 07/26/24 04:46 Albumin 3.0 g/dL (3.5-5.2) L 07/26/24 04:46 Globulin 3.2 g/dL (1.3-4.6) 07/26/24 04:46 Procalcitonin 0.07 ng/mL (0-0.5) 07/22/24 17:32 TSH 1.29 uIU/mL (0.27-4.20) 07/22/24 17:32 Urine Color [place] (Yellow) A 07/22/24 14:14 Urine Appearance Clear (CLEAR) 07/22/24 14:14 Urine pH 5.5 (5-7) 07/22/24 14:14 Ur Specific [place] 1.019 (1.005-1.030) 07/22/24 14:14 Urine Protein 1+ (Negative) A 07/22/24 14:14 Urine Glucose (UA) Negative (Normal) 07/22/24 14:14 Urine Ketones Trace (Negative) 07/22/24 14:14 Urine Blood 2+ (Negative) A 07/22/24 14:14 Urine Nitrate Negative (Negative) 07/22/24 14:14 Urine Bilirubin 1+ (Negative) H 07/22/24 14:14 Urine Urobilinogen 1.0 mg/dL (Negative) 07/22/24 14:14 Ur Leukocyte Esterase Trace (Negative) A 07/22/24 14:14 Urine RBC 6-10 /hpf (0-2) 07/22/24 14:14 Urine WBC 0-5 /hpf (0-5) 07/22/24 14:14 Ur Squamous Epith Cells 0-5 /hpf (0-5) 07/22/24 14:14 Amorphous Sediment Not Reportable 07/22/24 14:14 Urine Bacteria None seen /hpf (NONE) 07/22/24 14:14 Hyaline Casts 1.65 /lpf 07/22/24 14:14 Digoxin 0.7 ng/mL (0.6-1.2) 07/22/24 11:43 Adenovirus (PCR) Not detected (NOT DETECT) 07/23/24 08:10 C. pneumoniae DNA (PCR) Not detected (NOT DETECT) 07/23/24 08:10 Coronavirus 229E (PCR) Not detected (NOT DETECT) 07/23/24 08:10 Human Metapneumovir PCR Not detected (NOT DETECT) 07/23/24 08:10 Influenza A (H1) PCR Not detected (NOT DETECT) 07/23/24 08:10 Influ A (H1/09) PCR Not detected (NOT DETECT) 07/23/24 08:10 Influenza A (H3) PCR Not detected (NOT DETECT) 07/23/24 08:10 Influenza Type A (PCR) Not detected (NOT DETECT) 07/23/24 08:10 Influenza Type B (PCR) Not detected (NOT DETECT) 07/23/24 08:10 M. pneumoniae (PCR) Not detected (NOT DETECT) 07/23/24 08:10 Parainfluenza 1 (PCR) Not detected (NOT DETECT) 07/23/24 08:10 Parainfluenza 2 (PCR) Not detected (NOT DETECT) 07/23/24 08:10 Parainfluenza 3 (PCR) Not detected (NOT DETECT) 07/23/24 08:10 Parainfluenza 4 (PCR) Not detected (NOT DETECT) 07/23/24 08:10 RSV Type A (PCR) Not detected (NOT DETECT) 07/23/24 08:10 RSV Type B (PCR) Not detected (NOT DETECT) 07/23/24 08:10 Entero/Rhino (PCR) Not detected (NOT DETECT) 07/23/24 08:10 SARS-CoV-2 (PCR) Not detected (NOT DETECT) 07/23/24 08:10 Vitals Last Vital Signs Temp 97.6 F 07/26/24 07:33 Pulse 104 H 07/26/24 08:20 Resp 21 H 07/26/24 07:33 BP 121/81 07/26/24 07:33 Pulse Ox 95 07/26/24 09:30 O2 Del Method Nasal Cannula 07/26/24 07:33 O2 Flow Rate 6 07/25/24 16:46 FiO2 42 07/25/24 15:28 Discharge Plan Discharge Patient Disposition: Home Condition: Stable Prescriptions: New metoprolol tartrate 25 mg Tablet 25 mg PO BID@0900,2100 30 Days Qty: 60 0RF potassium chloride [Klor-Con 10] 10 mEq tablet extended release 10 meq PO DAILY 30 Days Qty: 30 0RF aspirin 81 mg tablet 81 mg PO DAILY 30 Days Qty: 30 0RF Continued duloxetine 60 mg capsule,delayed release(DR/EC) 60 mg PO DAILY digoxin 125 mcg (0.125 mg) tablet 125 mcg PO DAILY Qty: 90 3RF Discontinued sacubitril-valsartan 97-103 mg tablet 1 tab PO BID Qty: 180 3RF Cardizem CD 120 mg capsule,extended release 24hr 120 mg PO DAILY Qty: 90 3RF No Action Eliquis 5 mg tablet 5 mg PO BID@0900,2100 Rx Instructions: Take 1 tablet by mouth twice daily bumetanide 1 mg Tablet 1 mg PO BID 30 Days Qty: 60 0RF amiodarone [Pacerone] 200 mg Tablet 200 mg PO DAILY Qty: 60 0RF Discharge Orders: Discharge Order (Routine); Ordered 07/26/24 Ordered By: Enrique Cleveland Referrals: Fidelia Condon NP [Nurse Practitioner, Cardiology] - 08/03/24 2:00 pm Francis Elmore [Primary Care Provider, Family Practice] - 07/29/24 10:20 am Discharge Diet: Cardiac Discharge Activity: Resume usual activity Patient Instructions: Atrial Fibrillation, Amiodarone (By mouth), Heart Failure (ED), Heart Failure (DC), Chronic Hypertension (DC), Opioid Safety Activity Restrictions/Additional Instructions: - If any chest pain or shortness of breath please go to the emergency room - Please follow-up with cardiology Discharge Attestations Time Spent in Discharge Care*: greater than 30 min Quality Metrics Clinical Quality Measures [ No reported AMI, CVA or VTE this stay] Coding Level of Care Code 00679 Total time (in minutes) for Discharge: 45 Diagnoses Paroxysmal atrial fibrillation with rapid ventricular response I48.0 Chest discomfort R07.89 Acute on chronic systolic CHF (congestive heart failure), NYHA class 4 I50.23 Nonischemic congestive cardiomyopathy I42.0 Benign essential HTN I10 Mixed hyperlipidemia E78.2 Hyperlipidemia type: mixed hyperlipidemia
--- NOTE | 2024-07-26 13:20 | PC.NURSE ---
Natasha mims [facility] is talking to patient prior to discharge.
--- NOTE | 2024-07-26 13:38 | PC.NURSE ---
Provider is updated that he needs a work excuse - when can I let him go back to work? 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 Provider ordered: Give him a work excuse for 1 month, cannot return back to Work until cleared by cardiology after his angiogram. Work excuse is printed.
== END 2024-07-26 13:50 | disposition home or self-care (01) | DRG 291 ==
LOC: ER 11:32 → CSU 16:33 → ER IP 18:01
PROVIDERS: Internal Medicine; Admitting Provider Student in an Organized Health Care Education/Training Program; Emergency Provider Family Medicine; PCP Family Medicine; Visit Provider Family Medicine
DX: I11.0 Hypertensive heart disease with heart failure (principal); I50.23 Acute on chronic systolic (congestive) heart failure; J96.01 Acute respiratory failure with hypoxia; J18.9 Pneumonia, unspecified organism; B02.29 Other postherpetic nervous system involvement; I48.0 Paroxysmal atrial fibrillation; E78.2 Mixed hyperlipidemia; G47.33 Obstructive sleep apnea (adult) (pediatric); I42.0 Dilated cardiomyopathy; Z79.82 Long term (current) use of aspirin; Z79.01 Long term (current) use of anticoagulants; Z87.01 Personal history of pneumonia (recurrent); Z99.89 Dependence on other enabling machines and devices
CPT/HCPCS: 36415; 36600; 71045; 80051; 80053; 80162; 81001; 82330; 82805; 84145; 84443; 84484; 85025; 87040; 87086; 87486; 87581; 87633; 93005; 94660; 94760; 96376; A9270; J0283; J0696; J1938; J2060; J2919; J3490; J9999; Q0144

== ENCOUNTER 2024-07-28 23:21 | Inpatient (IN) | payer BC, SELFPAY ==
[2024-07-28 23:26] VITALS: BP 138/98; PULSE 110; RESP 16; TEMP 36.4; O2SAT 88; BMI 33.5
--- NOTE | 2024-07-28 23:29 | ECG_ITS ---
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 Measurements Intervals [place] Rate: 102 P: 0 MO: 0 QRS: 105 QRSD: 161 T: -73 QT: 336 QTc: 439 Interpretive Statements ATRIAL FIBRILLATION WITH RAPID VENTRICULAR RESPONSE RIGHT AXIS DEVIATION [QRS AXIS > 100] INTRAVENTRICULAR CONDUCTION DELAY [130+ ms QRS DURATION] LATERAL MYOCARDIAL INFARCTION , PROBABLY RECENT [40+ ms Q WAVE AND/OR ST/T ABNORMALITY IN I/aVL/V5/V6] PROBABLE INFERIOR MYOCARDIAL INFARCTION , OF INDETERMINATE AGE [35 ms Q WAVE IN II/aVF] Compared to ECG 07/23/2024 08:55:52 Right-axis deviation now present Intraventricular conduction delay now present.T-wave abnormality no longer present. Possible ischemia no longer present .Myocardial infarct finding still present Electronically Signed On 07-29-2024 16:26:34 CDT by Terese Bustillos M.D. [id number] [id number]
[2024-07-28 23:57] LABS: Basophils % 0.3 %; Eosinophils % 0.4 %; Lymphocytes # 1.9 10^3/uL (0.8-4.8); Lymphocytes % 19.3 %; Mean Corpuscular HGB Conc 33.3 g/dL (30-55); Mean Corpuscular Hemoglobin 29.7 pg (27-33); Mean Corpuscular Volume 89.3 fl (82-101); Mean Platelet Volume 10.3 fL (7.4-10.4); Monocytes # 0.7 10^3/uL (0.2-0.9); Monocytes % 6.7 %; Neutrophils # 6.86 10^3/uL (1.8-7.7); Neutrophils % 69.5 %; Nucleated Red Blood Cells % 0 %; Platelet Count 459 10^3/cmm (157-399); Red Blood Count 4.48 10^6/uL (3.85-5.65); Red Cell Distribution Width 13.1 % (12.1-15.1); White Blood Count 9.88 10^3/uL (3.29-11.43)
--- NOTE | 2024-07-28 23:59 | PC.NURSE ---
pt brought back to room from triage and upon placed on monitor pt found to be hypoxic with spo2 of 81% with good pleth. pt placed on 4 l NC with minimal improvement after 2 minutes to 84% . pt placed on oxymask @ 5 lpm with improvement to 90%. pt AOx4 . pt with noted Life Vest in placed and patient states upon being asked for my a-fib. pt states last hospitilization last thursday.
[2024-07-29] VITALS (21 sets, daily range): BP systolic 111–160; BP diastolic 79–112; PULSE 72–108; RESP 14–26; TEMP 36.4–37.1; O2SAT 91–97
--- NOTE | 2024-07-29 00:10 | XRR_ITS ---
PROCEDURE INFORMATION: Exam: XR Chest Exam date and time: 07/29/2024 12:17 AM Age: 64 years old Clinical indication: Shortness of breath; Additional info: SOB TECHNIQUE: Imaging protocol: Radiologic exam of the chest. Views: 1 view. COMPARISON: CR XR chest 1V portable [id number] 22/07/2024 12:20 FINDINGS: Lungs: Bat wing like bilateral alveolar pulmonary opacities favored to represent pulmonary edema. The patient is wearing a life vest. Pleural spaces: No pleural effusion or pneumothorax. Heart/Mediastinum: The heart is top-normal in size. Bones/joints: No acute fracture is identified. XR/XR chest 1V portable [id number] IMPRESSION: 1. Findings consistent with pulmonary edema. Pneumonia may be considered less likely. 2. The patient is wearing a life vest.
[2024-07-29 00:16] LABS: Troponin(5th) Baseline 21 ng/L (0-15)
[2024-07-29 00:19] LABS: Alanine Aminotransferase 26 U/L (0-41); Albumin Level 3.7 g/dL (3.5-5.2); Alkaline Phosphatase 82 U/L (40-130); Anion Gap 18.7 (5-19); Aspartate Amino Transferase 16 U/L (0-40); Blood Urea Nitrogen 46 mg/dL (8-23); Calcium 8.7 mg/dL (8.5-10.5); Carbon Dioxide 21 mmol/L (22-29); Chloride 104 mmol/L (98-107); Creatinine Clr Calc Pharmacy 59.3039; Globulin 2.7 g/dL (1.3-4.6); Glomerular Filtration Rate 43.9 mL/min (90-130); Glucose 111 mg/dL (65-115); Osmolality Calculated 303 mOsm/kg (285-295); Potassium 3.7 mmol/L (3.5-5.1); Sodium 140 mmol/L (136-145); Total Bilirubin 0.5 mg/dL (0.15-1.2); Total Protein 6.4 g/dL (6.6-8.7)
--- NOTE | 2024-07-29 00:21 | W.ED.CHESTPA ---
HPI - Chest Pain General: Chief Complaint: Chest Pain Stated Complaint: CP SOB Time Seen by Provider: 07/28/24 23:43 History of Present Illness: Colin Desouza presents to the emergency department with shortness of breath and fluid overload. The patient reports feeling short of breath, which is significant enough to be noticeable even from the front of his chest. Dr. Nguyen notes audible crackles throughout the patient's chest, indicating severe fluid accumulation in the lungs. The patient's condition appears to have worsened recently, as he mentions that his Lasix dosage was increased, but he had not yet experienced increased urination. This suggests that the medication adjustment has not yet taken effect to relieve his fluid retention. The patient denies any current chest pain but did experience chest pain earlier, though the timing and details are not specified. Mr. Desouza's oxygen saturation is only 91% despite being on a high-flow oxygen mask, indicating significant respiratory distress. He also has an elevated heart rate that requires management. The patient is scheduled to see his primary care doctor tomorrow and has an upcoming appointment with another physician (possibly a commissioner of relocation services) next Thursday. The patient's medical history is significant for cardiac issues, as there is mention of a planned heart catheterization and possibly a pacemaker, though the exact details and timing of these interventions are not clear. Related Data Home Medications ?Medication ?Instructions ?Recorded ?Confirmed duloxetine 60 mg capsule,delayed 60 mg PO DAILY 12/25/21 07/22/24 release Previous Rx's ?Medication ?Instructions ?Recorded apixaban 5 mg tablet (Eliquis) See Rx Instructions .Route 12/15/23 .COMPLEX #180 tabs furosemide 40 mg tablet (Lasix) 40 mg PO DAILY #90 tabs 06/01/24 digoxin 125 mcg (0.125 mg) tablet 125 mcg PO DAILY #90 tabs 07/11/24 amiodarone 200 mg tablet (Pacerone) See Rx Instructions .Route 07/26/24 .COMPLEX #60 tabs aspirin 81 mg tablet 81 mg PO DAILY 30 days #30 tabs 07/26/24 metoprolol tartrate 25 mg tablet 25 mg PO BID@0900,2100 30 days #60 07/26/24 tabs potassium chloride 10 mEq 10 meq PO DAILY 30 days #30 tabs 07/26/24 tablet,extended release (Klor-Con) prednisone 20 mg tablet 20 mg PO BID 5 days #10 tabs 07/26/24 sacubitril 24 mg-valsartan 26 mg 1 tab PO BID 30 days #60 tabs 07/26/24 tablet (Entresto) Allergies Allergy/AdvReac Type Severity Reaction Status Date / Time simvastatin Allergy Severe N/V Verified 07/22/24 09:46 Review of Systems General: Reports: 10 or more systems reviewed and unremarkable except in HPI and below PFSH ED PFSH: Medical History Atrial fibrillation with rapid ventricular response Pneumonia Bilateral pleural effusion Acute exacerbation of CHF (congestive heart failure) Obstructive sleep apnea SOBOE (shortness of breath on exertion) Postherpetic neuralgia Tobacco use Exercise intolerance Allergic rhinitis Shingles Hypertension Paroxysmal atrial fibrillation Labile blood pressure Dyspnea Hyperlipidemia GIA on CPAP Dizziness Chest discomfort Surgical History No history of previous surgery Family History Father CAD (coronary artery disease) Stroke, Onset Age: 35 Grandmother Cancer Mother Stroke Sister Stroke Denies family history of Diabetes Clotting disorder Dementia Chronic kidney disease (CKD) Suicide Anesthesia complication Bleeding disorder Lung disease Social History Smoking and tobacco/nicotine status: current every day tobacco/nicotine user (Chews tobacco) smokeless tobacco Alcohol intake: current Alcohol intake frequency: few times a month Substance/Drug Use: never Physical Exam Const: COMMON NORMALS: no acute distress, patient oriented x3, healthy appearing, alert and well nourished HENMT: COMMON NORMALS: normocephalic HEAD & SCALP: normocephalic Eye: COMMON NORMALS: EOMs intact bilaterally Neck/C-Spine: COMMON NORMALS: full ROM and supple Resp: COMMON NORMALS: normal respiratory effort and No retractions AUSCULTATION: crackles Laterality: bilateral and wheezes expiratory wheezes Cardio: COMMON NORMALS: No gallops present (Cardio) and No murmurs present (Cardio) RATE: tachycardic RHYTHM: abnormal rhythm irregularly irregular GI: COMMON NORMALS: Soft to palpation and non-tender PALPATION: Yes Soft to palpation Extremity: GENERAL: Yes normal exam except as noted Neuro: COMMON NORMALS: patient oriented x3 SENSORIUM/ORIENTATION: Yes alert Skin: COMMON NORMALS: no rashes or lesions noted GENERAL SKIN EXAM: no rashes or lesions noted Course Vital Signs: Vital signs: Vital Signs Temperature 97.5 F L 07/28/24 23:26 Pulse Rate 108 H 07/29/24 02:05 Respiratory Rate 23 H 07/29/24 01:01 Blood Pressure 121/93 07/29/24 01:01 Pulse Oximetry 96 07/29/24 02:05 Oxygen Delivery Me thod BiPAP 07/29/24 01:01 Fraction of Inspir ed Oxygen 40 07/29/24 01:01 MDM - Chest Pain Medical Decision Making 64-year-old male presents to the emergency department for evaluation of shortness of breath. Patient was discharged from the hospital 2 days ago from an admission for acute decompensated heart failure. His ejection fraction was 20 and the patient was discharged with a LifeVest. Acute Decompensated Heart Failure: Patient presents with shortness of breath and bilateral crackles audible in the anterior chest, indicative of pulmonary edema. Oxygen saturation is 91% on high-flow oxygen. Recent increase in Lasix dose has not yet resulted in significant diuresis. A-fib with RVR is also noted. These findings are consistent with acute decompensated heart failure. - Initiate BiPAP therapy to improve oxygenation and assist with fluid removal from lungs - 80 mg IV Lasix - Monitor oxygen saturation and heart rate closely A-fib with RVR: Patient is on amiodarone and metoprolol at home. His rate is not well-controlled here in the emergency department. Patient received two 5 mg doses of IV metoprolol. His rate is now 83. Troponins trended downward. No elevation in white count. Slight worsening in kidney function compared to previous admission. Contacted the hospitalist who agreed the patient should be admitted. Deferred consulting cardiology to the hospitalist. Lab Data 07/28/24 23:45 07/28/24 23:45 Radiology Impressions Chest X-Ray 07/29/24 00:10 IMPRESSION: 1. Findings consistent with pulmonary edema. Pneumonia may be considered less likely. 2. The patient is wearing a life vest. Laboratory Results WBC 9.88 10^3/uL (3.29-11.43) 07/28/24 23:45 RBC 4.48 10^6/uL (3.85-5.65) 07/28/24 23:45 Hgb 13.30 g/dL (11.27-16.99) 07/28/24 23:45 Hct 40.0 % (37-53) 07/28/24 23:45 MCV 89.3 fl (82-101) 07/28/24 23:45 MCH 29.7 pg (27-33) 07/28/24 23:45 MCHC 33.3 g/dL (30-55) 07/28/24 23:45 RDW 13.1 % (12.1-15.1) 07/28/24 23:45 Plt Count 459 10^3/cmm (157-399) H 07/28/24 23:45 MPV 10.3 fL (7.4-10.4) 07/28/24 23:45 Neut % (Auto) 69.5 % 07/28/24 23:45 Lymph % (Auto) 19.3 % 07/28/24 23:45 [place] % (Auto) 6.7 % 07/28/24 23:45 Eos % (Auto) 0.4 % 07/28/24 23:45 Baso % (Auto) 0.3 % 07/28/24 23:45 Neut # (Auto) 6.86 10^3/uL (1.8-7.7) 07/28/24 23:45 Lymph # (Auto) 1.9 10^3/uL (0.8-4.8) 07/28/24 23:45 [place] # (Auto) 0.7 10^3/uL (0.2-0.9) 07/28/24 23:45 Eos # (Auto) 0.0 10^3/uL (0.0-0.8) 07/28/24 23:45 Baso # (Auto) 0.0 10^3/uL (0.0-0.1) 07/28/24 23:45 Nucleated RBC % (auto) 0 % 07/28/24 23:45 Nucleated RBCs # 0.0 /100WBC 07/28/24 23:45 Sodium 140 mmol/L (136-145) 07/28/24 23:45 Potassium 3.7 mmol/L (3.5-5.1) 07/28/24 23:45 Chloride 104 mmol/L (98-107) 07/28/24 23:45 Carbon Dioxide 21 mmol/L (22-29) L 07/28/24 23:45 Anion Gap 18.7 (5-19) 07/28/24 23:45 BUN 46 mg/dL (8-23) H 07/28/24 23:45 Creatinine 1.6 mg/dL (0.7-1.2) H 07/28/24 23:45 GFR Calculation 43.9 mL/min (90-130) L 07/28/24 23:45 Glucose 111 mg/dL (65-115) 07/28/24 23:45 Calculated Osmolality 303 mOsm/kg (285-295) H 07/28/24 23:45 Calcium 8.7 mg/dL (8.5-10.5) 07/28/24 23:45 Total Bilirubin 0.5 mg/dL (0.15-1.2) 07/28/24 23:45 AST 16 U/L (0-40) 07/28/24 23:45 ALT 26 U/L (0-41) 07/28/24 23:45 Alkaline Phosphatase 82 U/L (40-130) 07/28/24 23:45 Troponin T Baseline 21 ng/L (0-15) H 07/28/24 23:45 Troponin T 120 Minute 21.18 ng/L (0-15) H 07/29/24 01:41 Delta Troponin T 0.18 ABS# (0-10) 07/29/24 01:41 Total Protein 6.4 g/dL (6.6-8.7) L 07/28/24 23:45 Albumin 3.7 g/dL (3.5-5.2) 07/28/24 23:45 Globulin 2.7 g/dL (1.3-4.6) 07/28/24 23:45 All radiology interpretation(s) finalized by discharge Discharge Plan Discharge Patient Disposition: Admitted As Inpatient Clinical Impression: Hypoxia Acute exacerbation of CHF (congestive heart failure) Qualifiers: Heart failure type: systolic Qualified Code(s): I50.23 - Acute on chronic systolic (congestive) heart failure Condition: Stable Coding Level of Care Code [employer]
[2024-07-29] MEDS: metoprolol tartrate 1 mg/1 mL SDV 5 mL 5 MG IVP ×2 (00:33→01:15)
[2024-07-29] MEDS: FUROsemide 10 mg/mL SDV 10mL 80 MG IVP (01:16)
--- NOTE | 2024-07-29 01:24 | ECG_ITS ---
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 Measurements Intervals [place] Rate: 84 P: 0 WV: 0 QRS: 114 QRSD: 162 T: 96 QT: 360 QTc: 427 Interpretive Statements ATRIAL FIBRILLATION INTRAVENTRICULAR CONDUCTION DELAY [130+ ms QRS DURATION] Compared to ECG 07/28/2024 23:29:21 Right-axis deviation no longer present Myocardial infarct finding no longer present Electronically Signed On 07-29-2024 16:31:55 CDT by Terese Bustillos M.D. [email or web address] [id number]
[2024-07-29 02:09] LABS: Troponin 5 2HR 21.18 ng/L (0-15); Troponin 5 2HR Delta 0.18 ABS# (0-10)
--- NOTE | 2024-07-29 04:41 | PC.NURSE ---
0430- pt transported to CSU via stretcher on radiation monitor with no difficulties. pt off of bipap at this time , tolerating 5 lpm NC . pt AOx4 upon admission. Report given to Aminta GALEANO
--- NOTE | 2024-07-29 05:24 | ECG_ITS ---
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 Measurements Intervals [place] Rate: 95 P: 0 NV: 0 QRS: 80 QRSD: 168 T: 92 QT: 470 QTc: 594 Interpretive Statements ATRIAL FIBRILLATION INTRAVENTRICULAR CONDUCTION DELAY [130+ ms QRS DURATION] Compared to ECG 07/29/2024 00:48:40 No significant changes Electronically Signed On 07-29-2024 16:31:47 CDT by Terese Bustillos M.D. [email or web address] [id number]
--- NOTE | 2024-07-29 05:51 | P.HP_ITS ---
Providers/Chief Complaint 2 Admitting Physician: Charissa Ash MD Primary Care Provider: Francis Elmore Chief Complaint: CP SOB, volume overload History of Present Illness Colin Moya is a 64 year old male with medical history significant for CHF exacerbation secondary to systolic dysfunction. Patient was admitted to the hospital a week ago treated for CHF only to come back again last night with much profound shortness of breath. Patient was given 80 mg of IV Lasix diuresing for over a liter. Feeling much better was placed on BiPAP and expressed relief. Patient EF is 20% wearing a LifeVest plan is on the long run to place him on a pacemaker. Patient had done well with diuresis and BiPAP had helped a lot and patient had voided significantly on 80 mg of IV Lasix. I will continue with 40 mg IV Lasix twice daily Review of Systems 2 General: Reports: 10 or more systems reviewed and unremarkable except in HPI and below Medications/Allergies Home Medications ?Medication ?Instructions ?Recorded ?Confirmed ?Last Taken ?Type duloxetine 60 mg capsule,delayed 60 mg PO DAILY 07/29/24 07/28/24 History release furosemide 40 mg tablet (Lasix) 40 mg PO DAILY #90 tab s 06/01/24 07/29/24 07/28/24 Rx digoxin 125 mcg (0.125 mg) tablet 125 mcg PO DAILY #90 tabs 07/11/24 07/29/24 07/28/24 Rx amiodarone 200 mg tablet (Pacerone) See Rx Instruction s .Route 07/26/24 07/29/24 07/28/24 Rx .COMPLEX #60 tabs aspirin 81 mg tablet 81 mg PO DAILY 30 days #30 t abs 07/26/24 07/29/24 07/28/24 Rx metoprolol tartrate 25 mg tablet 25 mg PO BID@0900,210 0 30 days #60 07/26/24 07/29/24 07/28/24 Rx tabs potassium chloride 10 mEq 10 meq PO DAILY 30 days #30 tabs 07/26/24 07/29/24 07/28/24 Rx tablet,extended release (Klor-Con) prednisone 20 mg tablet 20 mg PO BID 5 days #10 tabs 07/26/24 07/29/24 07/28/24 Rx apixaban 5 mg tablet (Eliquis) 5 mg PO BID@0900,2100 0 5/23/25 05/23/25 05/22/25 History Allergies Allergy/AdvReac Type Severity Reaction Status Date / Time simvastatin Allergy Severe N/V Verified 07/22/24 09:46 PFSH Acute 2 PFSH: Medical History Atrial fibrillation with rapid ventricular response Pneumonia Bilateral pleural effusion Acute exacerbation of CHF (congestive heart failure) Obstructive sleep apnea SOBOE (shortness of breath on exertion) Postherpetic neuralgia Tobacco use Exercise intolerance Allergic rhinitis Shingles Hypertension Paroxysmal atrial fibrillation Labile blood pressure Dyspnea Hyperlipidemia GIA on CPAP Dizziness Chest discomfort Surgical History No history of previous surgery Family History Father CAD (coronary artery disease) Stroke, Onset Age: 35 Grandmother Cancer Mother Stroke Sister Stroke Denies family history of Diabetes Clotting disorder Dementia Chronic kidney disease (CKD) Suicide Anesthesia complication Bleeding disorder Lung disease Social History Smoking and tobacco/nicotine status: current every day tobacco/nicotine user (Chews tobacco) smokeless tobacco Alcohol intake: current Alcohol intake frequency: few times a month Substance/Drug Use: never Vitals/I&O/Wt Last Vital Signs Temp 97.5 F L 07/28/24 23:26 Pulse 72 07/29/24 05:42 Resp 22 H 07/29/24 04:34 BP 137/97 07/29/24 04:34 Pulse Ox 92 07/29/24 04:34 O2 Del Method Nasal Cannula 07/29/24 04:34 O2 Flow Rate 5 07/29/24 04:34 FiO2 40 07/29/24 01:01 07/28/24 07/28/24 07/29/24 14:59 22:59 06:59 Intake Total 480 / 480 Output Total 600 / 600 Balance -120 / -120 Weight last 48 hrs Weight 108.635 kg Weight 108.862 kg Physical Exam 2 Narrative: General The patient is in no apparent distress does not look toxic HEENT normocephalic atraumatic Neck neck is supple Chest?lungs are clear but diminished breath sounds Abdomen?soft nontender nondistended unremarkable Extremities intact no edema has good pulses Neurology there are no actual focality Data 07/28/24 23:45 07/28/24 23:45 A&P Assessment and plan (1) Acute exacerbation of CHF (congestive heart failure): Patient is with systolic dysfunction with ejection fraction of 20%. Patient responded to initial 80 mg of IV Lasix along with nebulizing treatment and BiPAP therapy Cardiology in consultation with the emergency room prior to me being called to follow-up with the patient. Must continue to follow through and optimize. Please follow-up with home medication to restart once updated by the nursing care (2) Hypoxia: Hypoxemia Likely secondary to CHF/COPD exacerbation that responds quickly to oxygen via BiPAP and diuresis - DuoNeb initiated for nebulizing treatment (3) Shortness of breath: Subjective shortness of breath with objective hypoxemia Optimizing with care of supplemental oxygen, BiPAP and diuresis l. (4) Dyspnea: Dyspnea noted with shortness of breath Continue care as per above Repeat chest x-ray And any further workup if patient is not improving or deteriorates PDMP PDMP Reviewed: Not Reviewed Attestations 2 Medical Necessity Statement*: Patient with CHF exacerbation secondary to systolic dysfunction and a much in need of oxygenation and care with diuresis on BiPAP qualifies for inpatient care for at least 2 midnights Coding Level of Care Code 80107 Diagnoses Acute exacerbation of CHF (congestive heart failure) I50.23 Heart failure type: systolic Hypoxia R09.02 Shortness of breath R06.02 Dyspnea R06.00 Time Spent (min) 60
[2024-07-29] MEDS: FUROsemide 10 mg/mL SDV 4mL 40 MG IVP ×2 (06:21→17:36)
[2024-07-29 06:37] LABS: Troponin 5 6HR 19.38 ng/L (0-15)
[2024-07-29 06:40] LABS: Troponin 5 6HR Delta -1.62 ng/L (0-12)
[2024-07-29 07:02] LABS: Basophils % 0.3 %; Eosinophils % 0.4 %; Lymphocytes # 1.9 10^3/uL (0.8-4.8); Lymphocytes % 19.3 %; Mean Corpuscular HGB Conc 33.3 g/dL (30-55); Mean Corpuscular Hemoglobin 29.7 pg (27-33); Mean Corpuscular Volume 89.3 fl (82-101); Mean Platelet Volume 10.3 fL (7.4-10.4); Monocytes # 0.7 10^3/uL (0.2-0.9); Monocytes % 6.7 %; Neutrophils # 6.86 10^3/uL (1.8-7.7); Neutrophils % 69.5 %; Nucleated Red Blood Cells % 0 %; Platelet Count 459 10^3/cmm (157-399); Red Blood Count 4.48 10^6/uL (3.85-5.65); Red Cell Distribution Width 13.1 % (12.1-15.1); White Blood Count 9.88 10^3/uL (3.29-11.43)
[2024-07-29 07:11] LABS: Alanine Aminotransferase 24 U/L (0-41); Albumin Level 3.4 g/dL (3.5-5.2); Alkaline Phosphatase 74 U/L (40-130); Anion Gap 18.5 (5-19); Aspartate Amino Transferase 16 U/L (0-40); Blood Urea Nitrogen 44 mg/dL (8-23); Calcium 8.4 mg/dL (8.5-10.5); Carbon Dioxide 22 mmol/L (22-29); Chloride 103 mmol/L (98-107); Creatinine Clr Calc Pharmacy 59.2432; Globulin 2.9 g/dL (1.3-4.6); Glomerular Filtration Rate 43.9 mL/min (90-130); Glucose 113 mg/dL (65-115); Magnesium 2.1 mg/dL (1.7-2.3); NT Pro B Type Natriuretic Pept 16897 pg/mL (0-125); Osmolality Calculated 302 mOsm/kg (285-295); Phosphorus 4.5 mg/dL (2.5-4.5); Potassium 3.5 mmol/L (3.5-5.1); Sodium 140 mmol/L (136-145); Total Bilirubin 0.6 mg/dL (0.15-1.2); Total Protein 6.3 g/dL (6.6-8.7)
[2024-07-29] MEDS: pantoprazole DR 40 mg Tablet PO (09:33)
[2024-07-29] MEDS: metoprolol tartrate 25 mg Tablet PO ×2 (09:34→20:40)
[2024-07-29] MEDS: amiodarone 200 mg Tablet PO ×2 (09:39→17:36)
[2024-07-29] MEDS: enoxaparin 120 mg/0.8 mL Syringe 110 MG SUBCUT ×2 (09:40→20:40)
[2024-07-29 10:01] LABS: Iron 45 ug/dL (59-158); Percent Saturation 17.8 % (20-50); Total Iron Binding Capacity 252 mcg/dl; Unsaturated Iron Binding 207 ug/dL (112-347)
[2024-07-29 10:02] LABS: Estmated Average Glucose 128; Hemoglobin A1C 6.1 % (4.0-6.0)
[2024-07-29 10:17] LABS: Procalcitonin 0.16 ng/mL (0-0.5); Vitamin B12 476 pg/mL (232-1245)
[2024-07-29 10:27] LABS: Lactic Sepsis W/Reflex 1.4 mmol/L (0.5-2.2)
[2024-07-29 13:34] LABS: Bilirubin Urine Negative (Negative); Blood Urine Trace (Negative); Glucose Urine UA Negative (Normal); Ketones Urine Negative (Negative); Leukocyte Esterase Urine Negative (Negative); Nitrate Urine Negative (Negative); Protein Urine Negative (Negative); Specific Gravity, Urine 1.012 (1.005-1.030); Urine Appearance Clear (CLEAR); Urine Color Yellow (Yellow); Urobilinogen Urine 0.2 mg/dL (Negative); pH Urine 5.5 (5-7)
[2024-07-29 13:42] LABS: Add Urine Microscopic? YES; Bacteria Urine None Seen /hpf; Hyaline Casts Urine 2.46 /lpf; RBC Urine 0-2 /hpf (0-2); Squamous Epithelial Cell Urine 0-5 /hpf (0-5); WBC Urine 0-5 /hpf (0-5)
[2024-07-29 13:46] LABS: Potassium, Radom Urine 21 mmol/L; Urine Creatinine 64 mg/dL (39-259); Urine Random Chloride 52 mmol/L; Urine Random Sodium 54 mmol/L
[2024-07-29 15:59] LABS: Anion Gap 19.1 (5-19); Blood Urea Nitrogen 41 mg/dL (8-23); Calcium 8.5 mg/dL (8.5-10.5); Carbon Dioxide 23 mmol/L (22-29); Chloride 98 mmol/L (98-107); Creatinine Clr Calc Pharmacy 63.1928; Glomerular Filtration Rate 47.3 mL/min (90-130); Glucose 109 mg/dL (65-115); Osmolality Calculated 293 mOsm/kg (285-295); Potassium 4.1 mmol/L (3.5-5.1); Sodium 136 mmol/L (136-145)
[2024-07-30] VITALS (12 sets, daily range): BP systolic 119–149; BP diastolic 82–96; PULSE 83–100; RESP 17–25; TEMP 36.4–37.1; O2SAT 92–96
[2024-07-30 04:59] LABS: Basophils % 0.4 %; Eosinophils # 0.2 10^3/uL (0.0-0.8); Eosinophils % 2.2 %; Hematocrit 36.7 % (37-53); Lymphocytes # 1.6 10^3/uL (0.8-4.8); Lymphocytes % 18.6 %; Mean Corpuscular HGB Conc 32.4 g/dL (30-55); Mean Corpuscular Hemoglobin 28.9 pg (27-33); Mean Corpuscular Volume 89.1 fl (82-101); Mean Platelet Volume 10.3 fL (7.4-10.4); Monocytes # 0.5 10^3/uL (0.2-0.9); Monocytes % 5.9 %; Neutrophils # 5.88 10^3/uL (1.8-7.7); Neutrophils % 70.2 %; Nucleated Red Blood Cells % 0 %; Platelet Count 427 10^3/cmm (157-399); Red Blood Count 4.12 10^6/uL (3.85-5.65); Red Cell Distribution Width 13.2 % (12.1-15.1); White Blood Count 8.37 10^3/uL (3.29-11.43)
[2024-07-30 05:20] LABS: Alanine Aminotransferase 23 U/L (0-41); Albumin Level 3.1 g/dL (3.5-5.2); Alkaline Phosphatase 71 U/L (40-130); Anion Gap 17.8 (5-19); Aspartate Amino Transferase 16 U/L (0-40); Blood Urea Nitrogen 38 mg/dL (8-23); Calcium 8.3 mg/dL (8.5-10.5); Carbon Dioxide 25 mmol/L (22-29); Chloride 101 mmol/L (98-107); Creatinine Clr Calc Pharmacy 67.5125; Globulin 2.9 g/dL (1.3-4.6); Glomerular Filtration Rate 51.2 mL/min (90-130); Glucose 102 mg/dL (65-115); Magnesium 2.1 mg/dL (1.7-2.3); Osmolality Calculated 299 mOsm/kg (285-295); Phosphorus 4.1 mg/dL (2.5-4.5); Potassium 3.8 mmol/L (3.5-5.1); Sodium 140 mmol/L (136-145); Total Bilirubin 0.8 mg/dL (0.15-1.2)
[2024-07-30 05:24] LABS: Procalcitonin 0.11 ng/mL (0-0.5)
[2024-07-30 05:28] LABS: Chol HDL Ratio 4.64 mg/dL (1.0-5.00); Cholesterol 153 mg/dL (0-200); HDL Cholesterol 33 mg/dL (60-100); LDL Cholesterol Calculated 88 mg/dL (50-129); LDL HDL Ratio 2.67 RATIO (0.00-3.22); Triglycerides 158 mg/dL (0-150)
[2024-07-30] MEDS: FUROsemide 10 mg/mL SDV 4mL 40 MG IVP ×2 (06:05→17:37)
[2024-07-30] MEDS: pantoprazole DR 40 mg Tablet PO (09:32)
[2024-07-30] MEDS: amiodarone 200 mg Tablet PO ×2 (09:33→17:37)
[2024-07-30] MEDS: metOLazone 5 MG Tablet PO (09:34)
[2024-07-30] MEDS: digoxin 125 mcg Tablet PO (09:34)
[2024-07-30] MEDS: duloxetine 60 mg Capsule PO (09:34)
[2024-07-30] MEDS: metoprolol tartrate 25 mg Tablet PO ×2 (09:35→21:33)
[2024-07-30] MEDS: enoxaparin 120 mg/0.8 mL Syringe 110 MG SUBCUT ×2 (09:35→21:33)
--- NOTE | 2024-07-30 10:53 | P.PN_ITS ---
Subjective 2 Subjective: No acute events overnight. Today morning patient seen laying comfortably in bed on BiPAP. States he is feeling a lot better. Able to sleep better. Denies any nausea, vomiting, headache. Denies any chest pain. Vitals/I&O/Wt Last Vital Signs Temp 98.2 F 07/30/24 07:21 Pulse 88 07/30/24 09:34 Resp 18 07/30/24 07:21 BP 149/92 07/30/24 07:21 Pulse Ox 92 07/30/24 09:18 O2 Del Method Nasal Cannula 07/30/24 07:21 O2 Flow Rate 3 07/29/24 11:13 FiO2 30 07/30/24 09:18 07/29/24 07/30/24 07/30/24 22:59 06:59 14:59 Intake Total 690 / 1170 100 / 1270 480 / 480 Output Total 800 / 3050 850 / 3900 1400 / 1400 Balance -110 / -1880 -750 / -2630 -920 / -920 Weight last 48 hrs Weight 108 kg Weight 108.635 kg Weight 108.862 kg Physical Exam 2 Narrative: General: No acute distress, AO x3 HEENT: PERRLA, pupils bilaterally equal and reactive Chest: Normal vesicular breath sounds, Bilateral lower zone decreased air entry with fine crackles, equal good air entry bilaterally CVS: S1-S2 irregularly irregular, pansystolic murmur at apex 2/5, no tachycardia, S3 gallops, no rubs Abdomen: Soft, nontender, no organomegaly, bowel sounds present Neuro: No focal deficits, no facial deformity, AO x3, power 5/5 in all limbs Data 07/30/24 04:14 07/30/24 04:14 A&P Assessment and plan (1) Acute exacerbation of CHF (congestive heart failure): Last echocardiogram from 07/07 showed EF of 20% with dilated LV cavity, severely increased LA size. It was decreased in EF from previous examination from 2 years ago from 35%. Currently in acute decompensated systolic heart failure. Fluid restriction 1500 cc. Aggressive IV diuresis with Lasix 40 mg twice daily. Add metolazone 5 mg oral daily. Strict input output charting, daily weights. Given severe decline in EF patient would need ischemic workup. On previous admission he wanted to come back as an outpatient for angiogram but at this time he is agreeable. Once renal functions improved will consult cardiology for angiogram. Aspirin 81 mg daily. Check A1c, lipid panel. Monitor electrolytes. Repeat BMP in afternoon given aggressive IV diuresis. (2) Hypoxia: In setting of CHF exacerbation. Oxygen supplementation keeping saturation over 88%. Continue with home BiPAP. (3) Dyspnea: (4) Paroxysmal atrial fibrillation: Heart rate controlled. Normal digoxin levels. Continue with home dose of amiodarone, digoxin, metoprolol. Eliquis 5 mg twice daily switch to Lovenox 1 mg/kg body weight every 12 hourly for possible need for cardiac angiogram. (5) Benign essential HTN: Goal blood pressure less than 140/90 mmHg with mean over 65. Uptitrate accordingly. Plan CODE STATUS: Discussed in detail with the patient. He does not want any resuscitation including chest compressions or mechanical ventilation but is okay with defibrillation if needed. Limited resuscitation. Cardiac diet. Fluid restriction. Protonix for PUD prophylaxis Full dose Lovenox was sufficient for DVT prophylaxis. PDMP PDMP Reviewed: Not Reviewed Attestations 2 Medical Necessity Statement*: Requires further hospitalization for management of acute decompensated systolic congestive heart failure in a patient with new EF of 20% Diagnoses Acute exacerbation of CHF (congestive heart failure) I50.23 Heart failure type: systolic Hypoxia R09.02 Dyspnea R06.00 Paroxysmal atrial fibrillation I48.0 Benign essential HTN I10
--- NOTE | 2024-07-30 11:30 | PC.CHAP ---
Pastoral Care Encounter/Spiritual Assessment Type of Contact [] Declined cloth hand visit [] Patient/Family/Request visit [] Outpatient visit [] Follow-up visit [] Physician referral [] Code/Alert [] Routine visit [] Staff referral [] Actively dying [x] Patient sleeping [] Family support [] [] Out of room [] Palliative care [] [] Receiving care in room [] Pre-surgical visit [] Trauma [] Long length of stay [] ICU visit [] Other: Relational/Emotional Strength [] Patient feels connected with others/family/visitors/staff [] Distress [] Loneliness/isolation [] Abandonment Spirituality of Patient [] Person of Mayuri [] Attends Yarsanism of their Mayuri [] Believes in Prayer [] Reads Bible or Taoist materials [] There are Spiritual issues to be addressed Gis Engineer Interventions [] Prayer [] Active listening [] Non-anxious presence [] Spiritual/emotional support [] Crisis/trauma care [] Spiritual counseling [] Bereavement support [] Provided bereavement packet [] Provided Bible/devotional materials [] Provided toy/stuffed animal, coloring book to patient or family member [] Provided Communion [] Anointing/[place] [] Salvation [] Completed spiritual assessment [] Other: Impact on Illness or Injury [] Angry [] Fearful [] Anxious [] Often cries [] Exhaustion [] Unable to work [] Unable to attend pentecostalism [] Unable to walk/stand [] Unable to read [] Unable to drive [] Unable to eat/drink [] Unable to sleep [] Unable to be with family [] Patient intubated [] Other: Summary Time spent with patient
[2024-07-30 15:41] LABS: Anion Gap 16.7 (5-19); Blood Urea Nitrogen 36 mg/dL (8-23); Calcium 8.7 mg/dL (8.5-10.5); Carbon Dioxide 27 mmol/L (22-29); Chloride 103 mmol/L (98-107); Creatinine Clr Calc Pharmacy 63.0117; Glomerular Filtration Rate 47.3 mL/min (90-130); Glucose 120 mg/dL (65-115); Osmolality Calculated 304 mOsm/kg (285-295); Potassium 4.7 mmol/L (3.5-5.1); Sodium 142 mmol/L (136-145)
[2024-07-31] VITALS (11 sets, daily range): BP systolic 95–129; BP diastolic 62–101; PULSE 75–102; RESP 12–21; TEMP 36.3–36.8; O2SAT 94–97
[2024-07-31 04:05] LABS: Basophils % 0.3 %; Eosinophils # 0.2 10^3/uL (0.0-0.8); Eosinophils % 3.5 %; Hematocrit 36.6 % (37-53); Lymphocytes # 1.5 10^3/uL (0.8-4.8); Lymphocytes % 24.1 %; Mean Corpuscular HGB Conc 32.2 g/dL (30-55); Mean Corpuscular Hemoglobin 29.1 pg (27-33); Mean Corpuscular Volume 90.4 fl (82-101); Mean Platelet Volume 11.5 fL (7.4-10.4); Monocytes # 0.6 10^3/uL (0.2-0.9); Monocytes % 9.8 %; Neutrophils # 3.68 10^3/uL (1.8-7.7); Neutrophils % 58.5 %; Nucleated Red Blood Cells % 0 %; Platelet Count 336 10^3/cmm (157-399); Red Blood Count 4.05 10^6/uL (3.85-5.65); Red Cell Distribution Width 13.2 % (12.1-15.1)
[2024-07-31 04:31] LABS: Alanine Aminotransferase 26 U/L (0-41); Albumin Level 3.3 g/dL (3.5-5.2); Alkaline Phosphatase 77 U/L (40-130); Blood Urea Nitrogen 43 mg/dL (8-23); Calcium 9.1 mg/dL (8.5-10.5); Carbon Dioxide 29 mmol/L (22-29); Chloride 96 mmol/L (98-107); Creatinine Clr Calc Pharmacy 58.0671; Globulin 2.3 g/dL (1.3-4.6); Glomerular Filtration Rate 43.9 mL/min (90-130); Glucose 102 mg/dL (65-115); Magnesium 2.1 mg/dL (1.7-2.3); Osmolality Calculated 299 mOsm/kg (285-295); Phosphorus 5.1 mg/dL (2.5-4.5); Sodium 139 mmol/L (136-145); Total Bilirubin 0.6 mg/dL (0.15-1.2); Total Protein 5.6 g/dL (6.6-8.7)
[2024-07-31 04:36] LABS: Anion Gap 18.2 (5-19); Aspartate Amino Transferase 18 U/L (0-40); Potassium 4.2 mmol/L (3.5-5.1)
[2024-07-31] MEDS: FUROsemide 10 mg/mL SDV 4mL 40 MG IVP (05:13)
[2024-07-31] MEDS: enoxaparin 120 mg/0.8 mL Syringe 110 MG SUBCUT ×2 (09:16→20:24)
[2024-07-31] MEDS: duloxetine 60 mg Capsule PO (09:17)
[2024-07-31] MEDS: metoprolol tartrate 25 mg Tablet PO ×2 (09:17→20:24)
[2024-07-31] MEDS: pantoprazole DR 40 mg Tablet PO (09:17)
[2024-07-31] MEDS: docusate sodium 100 mg Capsule PO ×2 (09:17→18:30)
[2024-07-31] MEDS: digoxin 125 mcg Tablet PO (09:17)
[2024-07-31] MEDS: amiodarone 200 mg Tablet PO ×2 (09:18→18:30)
--- NOTE | 2024-07-31 11:28 | P.PN_ITS ---
Subjective 2 Subjective: No acute events overnight. Patient laying comfortably in bed. States he is feeling a lot better. Down to 3 L of oxygen supplementation. States able to sleep better overnight. Vitals/I&O/Wt Last Vital Signs Temp 98.2 F 07/31/24 07:23 Pulse 85 07/31/24 11:26 Resp 18 07/31/24 11:26 BP 118/89 07/31/24 11:26 Pulse Ox 95 07/31/24 11:26 O2 Del Method Nasal Cannula 07/31/24 11:26 O2 Flow Rate 3 07/29/24 11:13 FiO2 30 07/31/24 04:20 07/30/24 07/31/24 07/31/24 22:59 06:59 14:59 Intake Total 760 / 1360 0 / 1360 480 / 480 Output Total 2700 / 4250 500 / 4750 1580 / 1580 Balance -1940 / -2890 -500 / -3390 -1100 / -1100 Weight last 48 hrs Weight 104.236 kg Weight 108 kg Physical Exam 2 Narrative: General: No acute distress, AO x3 HEENT: PERRLA, pupils bilaterally equal and reactive Chest: Normal vesicular breath sounds, Bilateral lower zone decreased air entry with fine crackles, equal good air entry bilaterally CVS: S1-S2 irregularly irregular, pansystolic murmur at apex 2/5, no tachycardia, no gallops, no rubs Abdomen: Soft, nontender, no organomegaly, bowel sounds present Neuro: No focal deficits, no facial deformity, AO x3, power 5/5 in all limbs Data 07/31/24 02:13 07/31/24 02:13 A&P Assessment and plan (1) Acute exacerbation of CHF (congestive heart failure): Last echocardiogram from 07/07 showed EF of 20% with dilated LV cavity, severely increased LA size. It was decreased in EF from previous examination from 2 years ago from 35%. Currently in acute decompensated systolic heart failure. Fluid restriction 1500 cc. Aggressive IV diuresis with Lasix 40 mg twice daily. Add metolazone 5 mg oral daily. Strict input output charting, daily weights. Given severe decline in EF patient would need ischemic workup. On previous admission he wanted to come back as an outpatient for angiogram but at this time he is agreeable. Once renal functions improved will consult cardiology for angiogram. Aspirin 81 mg daily. Check A1c, lipid panel. Monitor electrolytes. Repeat BMP in afternoon given aggressive IV diuresis. (2) Hypoxia: In setting of CHF exacerbation. Oxygen supplementation keeping saturation over 88%. Continue with home BiPAP. (3) Dyspnea: (4) Paroxysmal atrial fibrillation: Heart rate controlled. Normal digoxin levels. Continue with home dose of amiodarone, digoxin, metoprolol. Eliquis 5 mg twice daily switch to Lovenox 1 mg/kg body weight every 12 hourly for possible need for cardiac angiogram. (5) Benign essential HTN: Goal blood pressure less than 140/90 mmHg with mean over 65. Uptitrate accordingly. Plan CODE STATUS: Discussed in detail with the patient. He does not want any resuscitation including chest compressions or mechanical ventilation but is okay with defibrillation if needed. Limited resuscitation. Cardiac diet. Fluid restriction. Protonix for PUD prophylaxis Full dose Lovenox was sufficient for DVT prophylaxis. Plan for the day: Continue with IV diuresis with Lasix 40 mg twice daily. Hold off on metolazone. Patient overall around 7.2 L negative. Hemodynamically stable. BMP slightly worsening today. Creatinine up to 1.6. Hold off on diuresis in afternoon. Repeat BMP in afternoon. Oxygen supplementation keeping saturation over 88%. PDMP PDMP Reviewed: Not Reviewed Attestations 2 Medical Necessity Statement*: Requires further hospitalization for management of acute decompensated systolic and diastolic heart failure requiring diuresis, acute kidney injury Diagnoses Acute exacerbation of CHF (congestive heart failure) I50.23 Heart failure type: systolic Hypoxia R09.02 Dyspnea R06.00 Paroxysmal atrial fibrillation I48.0 Benign essential HTN I10
[2024-07-31 16:02] LABS: Anion Gap 16.5 (5-19); Blood Urea Nitrogen 40 mg/dL (8-23); Calcium 9.3 mg/dL (8.5-10.5); Carbon Dioxide 30 mmol/L (22-29); Chloride 92 mmol/L (98-107); Creatinine Clr Calc Pharmacy 66.3624; Glomerular Filtration Rate 51.2 mL/min (90-130); Glucose 102 mg/dL (65-115); Osmolality Calculated 290 mOsm/kg (285-295); Potassium 3.5 mmol/L (3.5-5.1); Sodium 135 mmol/L (136-145)
[2024-08-01] VITALS (10 sets, daily range): BP systolic 91–134; BP diastolic 65–93; PULSE 73–93; RESP 13–24; TEMP 36.2–36.6; O2SAT 95–98
[2024-08-01 04:46] LABS: Alanine Aminotransferase 25 U/L (0-41); Albumin Level 3.2 g/dL (3.5-5.2); Alkaline Phosphatase 76 U/L (40-130); Anion Gap 17.6 (5-19); Aspartate Amino Transferase 15 U/L (0-40); Blood Urea Nitrogen 38 mg/dL (8-23); Calcium 9.2 mg/dL (8.5-10.5); Carbon Dioxide 29 mmol/L (22-29); Chloride 97 mmol/L (98-107); Creatinine Clr Calc Pharmacy 66.3624; Globulin 2.8 g/dL (1.3-4.6); Glomerular Filtration Rate 51.2 mL/min (90-130); Glucose 95 mg/dL (65-115); Magnesium 2.1 mg/dL (1.7-2.3); Osmolality Calculated 299 mOsm/kg (285-295); Phosphorus 5.6 mg/dL (2.5-4.5); Potassium 3.6 mmol/L (3.5-5.1); Sodium 140 mmol/L (136-145); Total Bilirubin 0.4 mg/dL (0.15-1.2)
[2024-08-01 05:09] LABS: Basophils % 0.5 %; Eosinophils # 0.2 10^3/uL (0.0-0.8); Eosinophils % 2.7 %; Hematocrit 37.3 % (37-53); Lymphocytes # 1.1 10^3/uL (0.8-4.8); Lymphocytes % 18.6 %; Mean Corpuscular HGB Conc 33.8 g/dL (30-55); Mean Corpuscular Hemoglobin 29.9 pg (27-33); Mean Corpuscular Volume 88.6 fl (82-101); Mean Platelet Volume 9.5 fL (7.4-10.4); Monocytes # 0.5 10^3/uL (0.2-0.9); Monocytes % 9.3 %; Neutrophils # 3.78 10^3/uL (1.8-7.7); Neutrophils % 64.9 %; Nucleated Red Blood Cells % 0 %; Platelet Count 409 10^3/cmm (157-399); Red Blood Count 4.21 10^6/uL (3.85-5.65); Red Cell Distribution Width 13.4 % (12.1-15.1); White Blood Count 5.82 10^3/uL (3.29-11.43)
[2024-08-01] MEDS: digoxin 125 mcg Tablet PO (09:10)
[2024-08-01] MEDS: duloxetine 60 mg Capsule PO (09:10)
[2024-08-01] MEDS: metoprolol tartrate 25 mg Tablet PO ×2 (09:10→21:33)
[2024-08-01] MEDS: amiodarone 200 mg Tablet PO ×2 (09:10→18:03)
[2024-08-01] MEDS: docusate sodium 100 mg Capsule PO ×2 (09:10→18:03)
[2024-08-01] MEDS: enoxaparin 120 mg/0.8 mL Syringe 110 MG SUBCUT ×2 (09:10→21:33)
[2024-08-01] MEDS: pantoprazole DR 40 mg Tablet PO (09:10)
--- NOTE | 2024-08-01 09:52 | P.PN_ITS ---
Subjective 2 Subjective: No acute events overnight. Patient states she is feeling a lot better. Sitting up on 2 L. Denies any nausea, vomiting, headache. Appreciate urine output. Vitals/I&O/Wt Last Vital Signs Temp 97.7 F 08/01/24 08:00 Pulse 81 08/01/24 09:10 Resp 24 H 08/01/24 08:00 BP 112/73 08/01/24 08:00 Pulse Ox 97 08/01/24 08:00 O2 Del Method Nasal Cannula 08/01/24 08:00 O2 Flow Rate 2 08/01/24 08:00 FiO2 30 08/01/24 04:15 07/31/24 08/01/24 08/01/24 22:59 06:59 14:59 Intake Total 120 / 600 240 / 240 Output Total 1270 / 3330 700 / 4030 580 / 580 Balance -1150 / -2730 -700 / -3430 -340 / -340 Weight last 48 hrs Weight 103.691 kg Weight 103.691 kg Weight 104.236 kg Physical Exam 2 Narrative: General: No acute distress, AO x3 HEENT: PERRLA, pupils bilaterally equal and reactive Chest: Normal vesicular breath sounds, Bilateral lower zone decreased air entry with fine crackles, equal good air entry bilaterally CVS: S1-S2 irregularly irregular, pansystolic murmur at apex 2/5, no tachycardia, no gallops, no rubs Abdomen: Soft, nontender, no organomegaly, bowel sounds present Neuro: No focal deficits, no facial deformity, AO x3, power 5/5 in all limbs Data 08/01/24 05:01 08/01/24 03:21 A&P Assessment and plan (1) Acute exacerbation of CHF (congestive heart failure): Last echocardiogram from 07/07 showed EF of 20% with dilated LV cavity, severely increased LA size. It was decreased in EF from previous examination from 2 years ago from 35%. Currently in acute decompensated systolic heart failure. Fluid restriction 1500 cc. Aggressive IV diuresis with Lasix 40 mg twice daily. Add metolazone 5 mg oral daily. Strict input output charting, daily weights. Given severe decline in EF patient would need ischemic workup. On previous admission he wanted to come back as an outpatient for angiogram but at this time he is agreeable. Once renal functions improved will consult cardiology for angiogram. Aspirin 81 mg daily. Check A1c, lipid panel. Monitor electrolytes. Repeat BMP in afternoon given aggressive IV diuresis. (2) Hypoxia: In setting of CHF exacerbation. Oxygen supplementation keeping saturation over 88%. Continue with home BiPAP. (3) Dyspnea: (4) Paroxysmal atrial fibrillation: Heart rate controlled. Normal digoxin levels. Continue with home dose of amiodarone, digoxin, metoprolol. Eliquis 5 mg twice daily switch to Lovenox 1 mg/kg body weight every 12 hourly for possible need for cardiac angiogram. (5) Benign essential HTN: Goal blood pressure less than 140/90 mmHg with mean over 65. Uptitrate accordingly. Plan CODE STATUS: Discussed in detail with the patient. He does not want any resuscitation including chest compressions or mechanical ventilation but is okay with defibrillation if needed. Limited resuscitation. Cardiac diet. Fluid restriction. Protonix for PUD prophylaxis Full dose Lovenox was sufficient for DVT prophylaxis. Plan for the day: Renal function improving. Creatinine down to 1.4. BUN improving. Held diuretic yesterday. Patient states he is feeling fine. On 2 L of oxygen supplementation. Orthopnea improving. Overall around 9.9 L negative. Stop IV diuretics. Start on Bumex 1 mg twice daily. Continue with fluid restriction. Appreciate electrolytes. Repeat BMP in AM. Oxygen supplementation keeping saturation over 88%. PDMP PDMP Reviewed: Not Reviewed Attestations 2 Medical Necessity Statement*: Requires further hospitalization for management of acute decompensated systolic congestive heart failure requiring IV diuresis, KERON Diagnoses Acute exacerbation of CHF (congestive heart failure) I50.23 Heart failure type: systolic Hypoxia R09.02 Dyspnea R06.00 Paroxysmal atrial fibrillation I48.0 Benign essential HTN I10
[2024-08-01] MEDS: bumetanide 1 mg Tablet PO (18:03)
[2024-08-02] VITALS (7 sets, daily range): BP systolic 102–127; BP diastolic 63–81; PULSE 74–82; RESP 13–21; TEMP 36.2–37; O2SAT 88–99
[2024-08-02 04:38] LABS: Alanine Aminotransferase 25 U/L (0-41); Albumin Level 3.1 g/dL (3.5-5.2); Alkaline Phosphatase 77 U/L (40-130); Anion Gap 13.6 (5-19); Aspartate Amino Transferase 14 U/L (0-40); Blood Urea Nitrogen 28 mg/dL (8-23); Calcium 8.9 mg/dL (8.5-10.5); Carbon Dioxide 30 mmol/L (22-29); Chloride 98 mmol/L (98-107); Creatinine Clr Calc Pharmacy 66.1959; Globulin 2.8 g/dL (1.3-4.6); Glomerular Filtration Rate 51.2 mL/min (90-130); Glucose 95 mg/dL (65-115); Osmolality Calculated 291 mOsm/kg (285-295); Potassium 3.6 mmol/L (3.5-5.1); Sodium 138 mmol/L (136-145); Total Bilirubin 0.4 mg/dL (0.15-1.2); Total Protein 5.9 g/dL (6.6-8.7)
--- NOTE | 2024-08-02 08:04 | P.DS_ITS ---
Discharge Providers Date of Admission: 07/29/24 03:25 Date of Discharge: August 02, 2024 Attending Provider at Admission: Charissa Ash MD Attending Provider at Discharge: John Tolbert MD Primary Care Provider: Francis Elmore Diagnoses at Discharge Discharge Diagnosis (1) Acute exacerbation of CHF (congestive heart failure): Status: Acute Qualifiers: Heart failure type: systolic Qualified Code(s): I50.23 - Acute on chronic systolic (congestive) heart failure (2) Hypoxia: Status: Acute (3) Dyspnea: Status: Acute (4) Paroxysmal atrial fibrillation: Status: Acute (5) Benign essential HTN: Status: Acute Reason for Visit Reason for Visit: CP SOB, volume overload Brief History: History as per HPI: Colin Moya is a 64 year old male with medical history significant for CHF exacerbation secondary to systolic dysfunction. Patient was admitted to the hospital a week ago treated for CHF only to come back again last night with much profound shortness of breath. Patient was given 80 mg of IV Lasix diuresing for over a liter. Feeling much better was placed on BiPAP and expressed relief. Patient EF is 20% wearing a LifeVest plan is on the long run to place him on a pacemaker. Patient had done well with diuresis and BiPAP had helped a lot and patient had voided significantly on 80 mg of IV Lasix. I will continue with 40 mg IV Lasix twice daily. Hospital Course Hospital Course Patient was admitted to the hospital further evaluation and management of acute decompensated systolic congestive heart failure. He was started on aggressive IV diuresis. He responded well to the treatment is around 10 L negative by discharge. His renal functions continue to remain slightly elevated but stable with creatinine around 1.4. He has been discharged hemodynamically stable condition with adjusted diuretics advised to follow-up with cardiology as an outpatient for possible cardiac angiogram and his renal functions improve or remain stable. Lifestyle modification with congestive heart failure were discussed in detail with the patient. Physical Exam Narrative: General: No acute distress, AO x3 HEENT: PERRLA, pupils bilaterally equal and reactive Chest: Normal vesicular breath sounds, Bilateral lower zone decreased air entry with fine crackles, equal good air entry bilaterally CVS: S1-S2 irregularly irregular, pansystolic murmur at apex 2/5, no tachycardia, no gallops, no rubs Abdomen: Soft, nontender, no organomegaly, bowel sounds present Neuro: No focal deficits, no facial deformity, AO x3, power 5/5 in all limbs Discharge Data Studies Completed and Pending Completed Studies During Hospitalization Category Date Time Status XR chest 1V portable [id number] Stat Exams 07/29/24 00:10 Completed Radiology Impressions Chest X-Ray 07/29/24 00:10 IMPRESSION: 1. Findings consistent with pulmonary edema. Pneumonia may be considered less likely. 2. The patient is wearing a life vest. Laboratory Results WBC 5.82 10^3/uL (3.29-11.43) 08/01/24 05:01 Corrected WBC Cancelled 08/01/24 03:21 RBC 4.21 10^6/uL (3.85-5.65) 08/01/24 05:01 Hgb 12.60 g/dL (11.27-16.99) 08/01/24 05:01 Hct 37.3 % (37-53) 08/01/24 05:01 MCV 88.6 fl (82-101) 08/01/24 05:01 MCH 29.9 pg (27-33) 08/01/24 05:01 MCHC 33.8 g/dL (30-55) 08/01/24 05:01 RDW 13.4 % (12.1-15.1) 08/01/24 05:01 Plt Count 409 10^3/cmm (157-399) H 08/01/24 05:01 MPV 9.5 fL (7.4-10.4) 08/01/24 05:01 Gran % Cancelled 08/01/24 03:21 Neut % (Auto) 64.9 % 08/01/24 05:01 Lymph % (Auto) 18.6 % 08/01/24 05:01 [place] % (Auto) 9.3 % 08/01/24 05:01 Eos % (Auto) 2.7 % 08/01/24 05:01 Baso % (Auto) 0.5 % 08/01/24 05:01 Neut # (Auto) 3.78 10^3/uL (1.8-7.7) 08/01/24 05:01 Lymph # (Auto) 1.1 10^3/uL (0.8-4.8) 08/01/24 05:01 [place] # (Auto) 0.5 10^3/uL (0.2-0.9) 08/01/24 05:01 Eos # (Auto) 0.2 10^3/uL (0.0-0.8) 08/01/24 05:01 Baso # (Auto) 0.0 10^3/uL (0.0-0.1) 08/01/24 05:01 Absolute Gran (auto) Cancelled 08/01/24 03:21 Nucleated RBC % (auto) 0 % 08/01/24 05:01 Nucleated RBCs # 0.0 /100WBC 08/01/24 05:01 Sodium 138 mmol/L (136-145) 08/02/24 04:07 Potassium 3.6 mmol/L (3.5-5.1) 08/02/24 04:07 Chloride 98 mmol/L (98-107) 08/02/24 04:07 Carbon Dioxide 30 mmol/L (22-29) H 08/02/24 04:07 Anion Gap 13.6 (5-19) 08/02/24 04:07 BUN 28 mg/dL (8-23) H 08/02/24 04:07 Creatinine 1.4 mg/dL (0.7-1.2) H 08/02/24 04:07 GFR Calculation 51.2 mL/min (90-130) L 08/02/24 04:07 Glucose 95 mg/dL (65-115) 08/02/24 04:07 Estimat Average Glucose 128 07/29/24 05:38 Hemoglobin A1c 6.1 % (4.0-6.0) H 07/29/24 05:38 Calculated Osmolality 291 mOsm/kg (285-295) 08/02/24 04:07 Lactic Acid 1.4 mmol/L (0.5-2.2) 07/29/24 10:04 Calcium 8.9 mg/dL (8.5-10.5) 08/02/24 04:07 Phosphorus 5.6 mg/dL (2.5-4.5) H 08/01/24 03:21 Magnesium 2.1 mg/dL (1.7-2.3) 08/01/24 03:21 Iron 45 ug/dL (59-158) L 07/29/24 05:38 TIBC 252 mcg/dl 07/29/24 05:38 % Saturation 17.8 % (20-50) L 07/29/24 05:38 Unsat Iron Binding 207 ug/dL (112-347) 07/29/24 05:38 Total Bilirubin 0.4 mg/dL (0.15-1.2) 08/02/24 04:07 AST 14 U/L (0-40) 08/02/24 04:07 ALT 25 U/L (0-41) 08/02/24 04:07 Alkaline Phosphatase 77 U/L (40-130) 08/02/24 04:07 Troponin T Baseline 21 ng/L (0-15) H 07/28/24 23:45 Troponin T 120 Minute 21.18 ng/L (0-15) H 07/29/24 01:41 Delta Troponin T 0.18 ABS# (0-10) 07/29/24 01:41 Troponin T Hi Sens 6Hr 19.38 ng/L (0-15) H 07/29/24 05:38 Troponin T Hi Sens 6Hr Delta -1.62 ng/L (0-12) L 07/29/24 05:38 NT-Pro-B Natriuret Pep 69047 pg/mL (0-125) H 07/29/24 05:38 Total Protein 5.9 g/dL (6.6-8.7) L 08/02/24 04:07 Albumin 3.1 g/dL (3.5-5.2) L 08/02/24 04:07 Globulin 2.8 g/dL (1.3-4.6) 08/02/24 04:07 Triglycerides 158 mg/dL (0-150) H 07/30/24 04:14 Cholesterol 153 mg/dL (0-200) 07/30/24 04:14 LDL Cholesterol, Calc 88 mg/dL (50-129) 07/30/24 04:14 HDL Cholesterol 33 mg/dL (60-100) L 07/30/24 04:14 LDL/HDL Ratio 2.67 RATIO (0.00-3.22) 07/30/24 04:14 Cholesterol/HDL Ratio 4.64 mg/dL (1.0-5.00) 07/30/24 04:14 Vitamin B12 476 pg/mL (232-1245) 07/29/24 05:38 Procalcitonin 0.11 ng/mL (0-0.5) 07/30/24 04:14 Urine Color Yellow (Yellow) 07/29/24 13:15 Urine Appearance Clear (CLEAR) 07/29/24 13:15 Urine pH 5.5 (5-7) 07/29/24 13:15 Ur Specific [place] 1.012 (1.005-1.030) 07/29/24 13:15 Urine Protein Negative (Negative) 07/29/24 13:15 Urine Glucose (UA) Negative (Normal) 07/29/24 13:15 Urine Ketones Negative (Negative) 07/29/24 13:15 Urine Blood Trace (Negative) A 07/29/24 13:15 Urine Nitrate Negative (Negative) 07/29/24 13:15 Urine Bilirubin Negative (Negative) 07/29/24 13:15 Urine Urobilinogen 0.2 mg/dL (Negative) 07/29/24 13:15 Ur Leukocyte Esterase Negative (Negative) 07/29/24 13:15 Urine RBC 0-2 /hpf (0-2) 07/29/24 13:15 Urine WBC 0-5 /hpf (0-5) 07/29/24 13:15 Ur Squamous Epith Cells 0-5 /hpf (0-5) 07/29/24 13:15 Amorphous Sediment Not Reportable 07/29/24 13:15 Urine Bacteria None seen /hpf (NONE) 07/29/24 13:15 Hyaline Casts 2.46 /lpf 07/29/24 13:15 Ur Random Sodium 54 mmol/L 07/29/24 13:15 Ur Random Potassium 21 mmol/L 07/29/24 13:15 Ur Random Chloride 52 mmol/L 07/29/24 13:15 Urine Creatinine 64 mg/dL (39-259) 07/29/24 13:15 Digoxin 1.0 ng/mL (0.6-1.2) 07/29/24 10:04 Vitals Last Vital Signs Temp 97.6 F 08/01/24 16:00 Pulse 76 08/02/24 05:05 Resp 14 08/02/24 05:05 BP 102/72 08/02/24 05:05 Pulse Ox 97 08/02/24 05:05 O2 Del Method Nasal Cannula 08/01/24 16:00 O2 Flow Rate 2 08/01/24 16:00 FiO2 25 08/02/24 04:40 Discharge Plan Discharge Patient Disposition: Home Condition: Stable Prescriptions: New bumetanide 1 mg Tablet 1 mg PO BID 30 Days Qty: 60 0RF Continued duloxetine 60 mg capsule,delayed release(DR/EC) 60 mg PO DAILY digoxin 125 mcg (0.125 mg) tablet 125 mcg PO DAILY Qty: 90 3RF metoprolol tartrate 25 mg Tablet 25 mg PO BID@0900,2100 30 Days Qty: 60 0RF potassium chloride [Klor-Con 10] 10 mEq tablet extended release 10 meq PO DAILY 30 Days Qty: 30 0RF aspirin 81 mg tablet 81 mg PO DAILY 30 Days Qty: 30 0RF Eliquis 5 mg tablet 5 mg PO BID@0900,2100 Rx Instructions: Take 1 tablet by mouth twice daily Changed amiodarone [Pacerone] 200 mg Tablet 200 mg PO DAILY Qty: 60 0RF Discontinued Lasix 40 mg tablet 40 mg PO DAILY Qty: 90 3RF prednisone 20 mg tablet 20 mg PO BID 5 Days Qty: 10 0RF Rx Instructions: for 5 days Discharge Orders: Discharge Order (Routine); Ordered 08/02/24 Ordered By: John Tolbert Referrals: Fidelia Condon NP [Nurse Practitioner, Cardiology] - 08/03/24 2:00 pm Francis Elmore [Primary Care Provider, Family Practice] - 08/08/24 9:00 am Discharge Diet: Cardiac Discharge Activity: Resume usual activity and Increase activity as tolerated Patient Instructions: Bumetanide (By mouth) (Bumex), A-fib (Atrial Fibrillation) (DC), CHF Stoplight Activity Restrictions/Additional Instructions: Restrict fluid intake to less than 1500 cc, salt intake to less than 2 g daily. Advised to check his weight daily at home. Is advised that weight today would be the dry weight and if body weight increases by around 5 pounds, patient is to take an extra dose of Bumex daily till body weight comes down to weight today. If not able to come down to dry body weight in 1 week, then is to call cardiology office for further recommendations. Patient was counseled in detail to take medications regularly as prescribed. Take your blood pressure daily at home until blood pressure diary. Goal blood pressures less than 140/90 mmHg. Discharge Attestations Time Spent in Discharge Care*: greater than 30 min Specific Discharge Activities: educating patient, educating and/or supporting family/caregiver, discussing with pcp/other providers, discussing with case manager specialist/social workers/dc planners, documenting/other paperwork and evaluating patient/reviewing data Status at Discharge: Cognitive status at discharge: cognitively intact , Behavioral status at discharge: cooperative , Functional status at discharge: independent ambulation , Overall status at discharge: patient is back to baseline Quality Metrics Clinical Quality Measures [ No reported AMI, CVA or VTE this stay] Coding Level of Care Code 19258 Total time (in minutes) for Discharge: 65 Diagnoses Acute exacerbation of CHF (congestive heart failure) I50.23 Heart failure type: systolic Hypoxia R09.02 Dyspnea R06.00 Paroxysmal atrial fibrillation I48.0 Benign essential HTN I10
--- NOTE | 2024-08-02 09:49 | PC.NURSE ---
Patient states he will take his daily home meds when he gets home.
--- NOTE | 2024-08-02 12:15 | PC.NURSE ---
HOME medical equipment staff at bedside
== END 2024-08-02 13:00 | disposition home or self-care (01) | DRG 291 ==
LOC: ER 07-29 03:31 → CSU 07-29 03:42
PROVIDERS: Admitting Provider Internal Medicine; Emergency Provider General Practice; PCP Family Medicine; Visit Provider Student in an Organized Health Care Education/Training Program
DX: I11.0 Hypertensive heart disease with heart failure (principal); I50.23 Acute on chronic systolic (congestive) heart failure; J44.1 Chronic obstructive pulmonary disease with (acute) exacerbation; R06.00 Dyspnea, unspecified; R09.02 Hypoxemia; I48.0 Paroxysmal atrial fibrillation; Z79.01 Long term (current) use of anticoagulants; F17.220 Nicotine dependence, chewing tobacco, uncomplicated; G47.33 Obstructive sleep apnea (adult) (pediatric); Z79.82 Long term (current) use of aspirin
CPT/HCPCS: 36415; 71045; 80048; 80053; 80061; 80162; 81001; 82436; 82570; 82607; 83036; 83540; 83550; 83605; 83735; 83880; 84100; 84133; 84145; 84300; 84484; 85025; 93005; 94660; 94664; 94760; 96372; 96374; 96375; 96376; 99291; A9270; J1650; J1938; J3490; J9999

== ENCOUNTER → 2024-08-10 14:32 | Outpatient (BNVA) | payer BC, SELFPAY | PROVIDERS: PCP Family Medicine; Referring Provider Student in an Organized Health Care Education/Training Program; Visit Provider Nurse Practitioner Family | DX: I50.20 Unspecified systolic (congestive) heart failure (principal) | CPT/HCPCS: 36415; 80048 ==

== ENCOUNTER 2024-08-18 07:12 | Outpatient (CLI) | payer BC, SELFPAY ==
[2024-08-18] VITALS (13 sets, daily range): BP systolic 115–136; BP diastolic 64–93; PULSE 66–111; RESP 16–26; TEMP 35.9–37.6; O2SAT 79–98; BMI 30.7
--- NOTE | 2024-08-18 07:30 | XACV_ITS ---
Exam Room: 2 Ht: 180 cm Wt: 100 kg BSA: 2.26 m2 Gender: Male : 1960 Any Known Allergies: Other Exam Priority: Routine Procedure(s): Procedure Description: Diagnostic procedure Procedure Description: PCI procedure Procedure Description: Left Heart Catheterization Procedure Description: Right Heart Catheterization Procedure Description: Left ventriculography Procedure Description: O2 saturation Procedure Description: Drug Eluting Coronary Stent Procedure Description: PTCA Procedure Description: Miscellaneous Procedure Description: ACT Procedure Description: Coronary Angiography Procedure Description: Pressure Wire Apollo CORONEL; Diagnostic Cath Status: Elective Diagnostic Findings * Left main is a short medium caliber vessel with no significant stenotic lesions. * The left-sided descending artery is a medium caliber long in the vessel which appears to wraparound the LV apex. The proximal LAD was found to have minimal intimal irregularities. First diagonal artery was found an ostial 60 to 70% narrowing. Mid LAD was found to have irregular narrowing of 50 to 60%. The distal LAD was found to have mild diffuse intimal irregularities. * The left circumflex artery appears to bifurcate proximally. It gives off a high OM/intermediate artery which was found to have 70 to 80% diffuse irregular narrowing proximally. The circumflex proper was found to have mild diffuse intimal irregularities. It appears to be a codominant vessel. * The right coronary artery is a medium caliber codominant vessel which was found to have mild to moderate diffuse irregular narrowing proximally. The PDA and the PLV branches were found to have intimal irregularities. The PDA is an elongated slender vessel. PCI Status: Elective PCI Indication: Other Interventional Findings * Procedure detail: We engaged left main artery with XB 3.5 guide catheter. iFR wire was advanced into distal LAD and IFR value of 0.87 was obtained. We then predilated with 3.0 x 15 mm semicompliant balloon. This was followed by placement of 3.5 x 30 mm resolute Grace drug-eluting stent. Stent was postdilated with 3.75 x 15 mm NC balloon. Ostial diagonal artery stenosis was treated with 3.0 x 15 mm semicompliant balloon. We then predilated OM stenosis with 3.0 x 15 mm semicompliant balloon. This was followed by placement of 3.0 x 30 mm resolute Grace drug-eluting stent. IVUS was performed to confirm lack of severe disease of the ostium of circumflex artery. At this time final angiogram was performed. This showed excellent stent expansion, no residual stenosis and MIGUE-3 flow. Guidewire and guide catheter were removed. Patient left the Propagator in stable condition. * Mid Left Anterior Descendin% stenosis treated with a AB TREK 3.00X15 RX BALLOON, MDT R GRACE 3.5X30 SMOOTH, and MDT NC EUPHORA RX [id number] BALLOON. 0% residual stenosis, MIGUE: 3 flow. * 1st Diagonal: 70% stenosis treated with a AB TREK 3.00X15 RX BALLOON. 0% residual stenosis, MIGUE: 3 flow. * First Obtuse Marginal Branch Segment: 70% stenosis treated with a AB TREK 3.00X15 RX BALLOON, and MDT R GRACE 3.0X30 SMOOTH. 0% residual stenosis, MIGUE: 3 flow. Conclusions 1. 64-year-old white male presented with recurrent episodes of decompensated heart failure. He was found to have worsening LV systolic function with an ejection fraction around 20%. He also was complaining of chest pain. He also is noted to have atrial fibrillation. For further evaluation of his coronary status, as well as the hemodynamics, a right and left heart catheterization with coronary angiogram was recommended. Patient underwent the procedure today. The findings are as follows. 2. The left main was found to have minimal intimal irregularities. Left anterior descending artery was found to have around 50 to 60% diffuse irregular narrowing of the midsegment. First diagonal branch was found to have around 70% ostial narrowing. Left circumflex artery gives of a high OM branch/intermedius artery which was found to have a high-grade lesion of around 80% proximally. The right coronary artery was found to have mild to moderate diffuse intimal irregularities in the proximal segment. It is a codominant vessel. The LVEDP was 19 mmHg. Right heart catheterization revealed PA pressure of 65/28 with a mean of 46. RV pressure 59/1. The pulmonary capillary wedge pressure was 23 with a prominent V wave of 36 mmHg. The right atrial mean pressure was 11 mmHg. 3. I reviewed and discussed the cardiac catheterization data with . It was thought to be appropriate to consider PCI of the circumflex/intermediate artery lesion. Possible IFR of the mid LAD with possible intervention of the LAD/first diagonal ostial lesion. The angiogram findings and further management options were discussed with the patient and his family which they understood well and consented to proceed. Dr. Resendiz took over further management of this patient at this point. For further details, please refer to the report by Dr. Resendiz. 4. Status post successful revascularization of mid LAD with 1 stent. Balloon angioplasty of the ostial diagonal artery performed. PCI of high OM/ramus artery performed with 1 stent. 5. Mid Left Anterior Descending was treated with a Balloon, Drug Eluting Stent, and Balloon. 6. 1st Diagonal was treated with a Balloon. 7. First Obtuse Marginal Branch Segment was treated with a Balloon, and Drug Eluting Stent. Recommendations * Dual antiplatelet therapy with aspirin and plavix. * High intenstiy statin therapy. * Outpatient cardiology follow up in 2 weeks. Interventional RX Recommendation: PCI w/o planned CABG Diagnostic RX Recommendation: PCI w/o planned CABG Anticoagulation: Heparin LV EDP: 19 mmHg Left Ventriculography Findings: * LV gram was not performed because of the renal insufficiency. LVEDP was 19 mmHg. Pressures Phase:Rest AO : 106 / 84 ( 88 ) @ 10:33:00 AM 99 / 79 ( 88 ) @ 10:34:00 AM 124 / 54 ( 87 ) @ 10:43:00 AM 116 / 58 ( 82 ) @ 10:43:00 AM 108 / 77 ( 91 ) @ 10:53:00 AM 125 / 76 ( 92 ) @ 11:02:00 AM LV : 114 / 1 / 19 @ 10:43:00 AM 115 / -1 / 18 @ 10:43:00 AM RV : 59 / -1 / 9 @ 10:29:00 AM PA : 50 / 26 ( 37 ) @ 10:27:00 AM 65 / 28 ( 46 ) @ 10:29:00 AM RA : a wave = 13 v wave = 14 mean = 11 @ 10:30:00 AM PCW : a wave = 18 v wave = 36 mean = 23 @ 10:27:00 AM O2 Content Phase:Rest PA : O2 Content O2: 45.9 @ 10:43:00 AM Saturations Phase:Rest AO : 93 @ 10:34:00 AM RA : 55 @ 10:43:00 AM RV : 49 @ 10:33:00 AM PA : 46 @ 10:43:00 AM Cardiac Output Phase:Rest Alireza : 3 @ 10:56:09 AM Alireza Cardiac Index: 2 @ 10:56:09 AM Flow Phase:Rest Qp : 3 @ 10:56:09 AM Qs : 4 @ 10:56:09 AM Valves Phase:DefaultPhase AV : 0.0 @ 10:56:09 AM AV Mean Gradient: 0.0 @ 10:56:09 AM AV Flow: 586 @ 10:56:09 AM Clinical Evaluation EBL: 5mL-10mL Procedural Details Pre-Procedure Time Out. Identified patient by full name and date of as verbalized by the patient/guarantor. Does the consent match the physician's order: Yes. Accurate & Complete Informed Consent: Yes. Inpatient/Outpatient History & Physical on Chart: Yes. If H&P is completed, is and addenduem needed: No; If yes, is the addendum complete: N/A. Visualize and Verify Site with Patient/Guarantor: N/A. Relevant Radiology Images available: Yes. Pre-op teaching completed and patient verbalized understanding. The risks, benefits, and alternatives of sedation and/or procedure were discussed by physician. The patient agrees to continue. Procedure started. Current Diagnosis : Chest Pain. [facility] Clinical Fraility Score: 5: Mildly Frail. Propagator Indications: LV Dysfunction. Chest Pain Symptom Assessment: Typical Angina Symptoms. Current diagnosis: Chest Pain. PERRLA. 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 Lungs clear x 5 lobes. IV Site on Arrival: 20 gauge in the left forearm. IV Fluids: 0.9% NaCl at KVO. 0 mL infused prior to labor relations consultant. Pre Procedural Pulses: bilateral dorsalis pedis was 2+. Pre Procedural Pulses: bilateral posterior tibial was 2+. Pre Procedural Pulses: bilateral radial was 2+. bilateral groins was prepped with chloroprep then draped in the usual sterile fashion. Physician notified. Baseline sample Acquired. HR: 72 BPM. Physician arrived. Physician scrubbed in. Immediate Pre-Procedure Time Out. Correct Patient: Yes; Correct Procedure: Yes; Correct Site: Yes; Correct Patient Position: Yes; Correct Supplies: Yes; Dried Flammable Prep: Yes; Blood Products Available: N/A;. Lidocaine 1% infiltrated to the right groin. Venous access obtained with a micropuncture set. Arterial access obtained with micropuncture set. [place]-Claudia MON catheter inserted. Oximetry samples were obtained. Normal venous range: 60-85%. Normal arterial range: 95-100%. Pressure measurements obtained. A 5 gambian JL4 catheter in over wire. Multiple views taken of left coronary artery. Dr. Resendiz called to review films. Catheter removed over the standard wire. A 5 gambian JR4 catheter in over wire. Multiple views taken of right coronary artery. Dr. Resendiz arrived. Catheter removed over the standard wire. A 5 gambian Angled Pig catheter in over wire. EDP Sample taken: LV 114/1,19; HR: 76 BPM; SpO2: 91%. Pullback taken: LV 115/-2,18; AO 124/54(87); Mean: 0mmHg, Peak to Peak: 0mmHg, SEP: 6sec/min; HR: 56 BPM; SpO2: 92%. Catheter removed over the standard wire. Physician scrubbed out. Dr. Resendiz scrubbed in to perform intervention. 6 gambian XB 3.5 guide catheter was inserted over the wire. IFR guidewire was advanced through the guide catheter to lesion in the mid LAD. Wire out. A second IFR guidewire was advanced through the guide catheter to lesion in the mid LAD. The first IFR wire out. IFR Result: 0.87. Runthrough guidewire was advanced through the guide catheter to lesion in the mid LAD. IFR wire out. Inflation number : 1 A AB TREK 3.00X15 RX BALLOON was prepped and advanced across the Mid LAD , then inflated to 8 EMILY for 0:14 seconds. Inflation number: 2 The AB TREK 3.00X15 RX BALLOON was reinflated across the Mid LAD, to 8 EMILY for 0:10 seconds. Balloon out. Inflation Number : 3 A MDT R GRACE 3.5X30 SMOOTH -Lot Number# _[id number] EXP: 02/15/2027 was prepped and advanced across the Mid LAD. The stent was deployed at 12 EMILY for 0:20 seconds. Stent balloon out over wire. Inflation number : 4 A MDT NC EUPHORA RX [id number] BALLOON was prepped and advanced across the Mid LAD , then inflated to 16 EMILY for 0:15 seconds. Inflation number: 5 The MDT NC EUPHORA RX [id number] BALLOON was reinflated across the Mid LAD, to 14 EMILY for 0:11 seconds. Balloon out. Wire redirected the Diag. Inflation number: 1 The AB TREK 3.00X15 RX BALLOON was reinflated across the 1st Diag, to 6 EMILY for 0:15 seconds. Balloon out. Results checked. Wire redirected to the OM. Inflation number: 1 The AB TREK 3.00X15 RX BALLOON was reinflated across the 1st Ob Jana, to 8 EMILY for 0:11 seconds. Inflation number: 2 The AB TREK 3.00X15 RX BALLOON was reinflated across the 1st Ob Jana, to 8 EMILY for 0:13 seconds. Inflation number: 3 The AB TREK 3.00X15 RX BALLOON was reinflated across the 1st Ob Jana, to 10 EMILY for 0:16 seconds. Balloon out. Results checked. Stent inserted to lesion in the OM. Intact stent out OTW. Guideliner inserted. Stent inserted to lesion in the OM. Inflation Number : 4 Abdirahman JONATHAN Johnson GRACE 3.0X30 SMOOTH -Lot Number# _[id number] EXP: 12/26/2026 was prepped and advanced across the 1st Ob Jana. The stent was deployed at 12 EMILY for 0:22 seconds. Stent balloon out over wire. Results checked. IVUS catheter inserted OTW and advanced to the OM. IVUS measurements obtained. IVUS catheter out OTW. Balloon inserted to lesion in the OM. Balloon out. Results checked. Wire out. ACT drawn. Results 331 seconds. Therapeutic limits - pre-heparin administration 90-150 seconds and monitoring heparin during a vascular procedure >250 seconds. Guide catheter out. A Right femoral angiogram was performed to determine safe placement of closure device. A Suture was successful obtaining hemostatsis at the Right Femoral vein insertion site. Lidocaine 1% infiltrated to the right groin. A Angio-Seal VIP ([facility] [facility]) was successful obtaining hemostatsis at the Right Femoral artery insertion site. Post Procedure: Pulses reassessed and unchanged. PERRLA. 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 No VTE prophylaxis required. Medication's Wasted: Lidocaine 1% = 8 mL. Medication's Wasted: Other = Fentanyl 50mcg Versed 1 mg. Total IV fluids: 100 mL. Post-op diagnosis: Stent to LAD and OM. Complications: None. Estimated blood loss: 5mL-10mL. Responsiveness - Normal response to verbal stimuli; alert and oriented, PERRLA. Airway - Unaffected, no intervention required; spontaneous ventilation. Circulation: W/N/L, pulses unchanged. Nausea/Vomiting: No. Procedure completed. Patient transferred by bed to 1st floor. Vital chart was stopped. Access Site Site: Right Femoral artery Sheath Size: 6 Fr Hemostasis Method: Angio-Seal VIP ([facility]) Hemostasis Success: Successful Site: Right Femoral vein Sheath Size: 6 Fr Hemostasis Method: Suture Hemostasis Success: Successful Procedure Medications Start: 9:09 AM Stop: 9:09 AM Medication: Versed Amount: 1 mg Route: I.V. Start: 9:09 AM Stop: 9:09 AM Medication: Fentanyl Amount: 50 mcg Route: I.V. Start: 9:19 AM Stop: 9:19 AM Medication: Zofran (ondansetron) Amount: 4 mg Route: I.V. Start: 9:31 AM Stop: 9:31 AM Medication: Heparin Amount: 1500 units Route: I.V. Start: 9:53 AM Stop: 9:53 AM Medication: Heparin Amount: 7000 units Route: I.V. Start: 10:23 AM Stop: 10:23 AM Medication: Heparin Amount: 1000 units Route: I.V. Start: 10:45 AM Stop: 10:45 AM Medication: Plavix Amount: 600 mg Route: P.O. I, the attending physician, have reviewed and verified all procedure medications. Yes, all medications given per verbal order History/Risk Factors Hypertension: Yes Dyslipidemia: Yes Peripheral Arterial Disease (PAD): No Myocardial Infarction (AR): No Obesity: No Renal Disease: No Tobacco Use: Never Prior Interventions PCI: No CABG: No Valve Surgery: No Report Signatures Interventional Workflow Finalized by Edinson Resendiz MD on 09/03/2024 02:31 PM Diagnostic Workflow Finalized by Dr Terese Bustillos MD [facility] on 08/18/2024 10:50 PM
--- NOTE | 2024-08-18 08:00 | W.PM.OPSUD ---
Surgery/Procedure H&P Update DATE OF PROCEDURE: August 18, 2024 DATE H&P PERFORMED: 07/25/24 H&P UPDATE INFORMATION: I have reviewed H&P completed within last 30 days, I have examined patient prior to procedure and No changes to prior documentation PREOP DIAGNOSIS: ASHD PRIMARY INDICATION FOR PROCEDURE: Cardiomyopathy/CHF/chest pain PLANNED PROCEDURE: Operation Date: 08/18/24 08:30 Proposed Procedures p Cardiac Catheterization(Left) - Terese Bustillos MD PATIENT REASSESSED PRIOR TO SEDATION, WITH NO CHANGE NOTED: Yes PHYSICAL EXAM: alert, oriented x 3, clear to auscultation bilaterally and regular rate & rhythm AIRWAY EVAL/ANESTHESIA PLAN: normal airway, see other exam findings, ASA III, Monitored Anesthesia, Local Anesthesia, Risks, benefits & alternatives of sedation and/or procedure discussed and Patient agrees to continue as planned
[2024-08-18] MEDS: diphenhydrAMINE 50 mg Capsule PO (08:10)
[2024-08-18 08:33] LABS: Basophils % 0.9 %; Eosinophils # 0.1 10^3/uL (0.0-0.8); Eosinophils % 2.6 %; Hematocrit 35.2 % (37-53); Lymphocytes # 1.1 10^3/uL (0.8-4.8); Lymphocytes % 24.6 %; Mean Corpuscular HGB Conc 33.5 g/dL (30-55); Mean Corpuscular Hemoglobin 29.3 pg (27-33); Mean Corpuscular Volume 87.3 fl (82-101); Mean Platelet Volume 9.4 fL (7.4-10.4); Monocytes # 0.4 10^3/uL (0.2-0.9); Monocytes % 7.8 %; Neutrophils # 2.94 10^3/uL (1.8-7.7); Neutrophils % 63.2 %; Nucleated Red Blood Cells % 0 %; Platelet Count 275 10^3/cmm (157-399); Red Blood Count 4.03 10^6/uL (3.85-5.65); Red Cell Distribution Width 13.7 % (12.1-15.1); White Blood Count 4.64 10^3/uL (3.29-11.43)
[2024-08-18 08:49] LABS: Anion Gap 18.5 (5-19); Blood Urea Nitrogen 18 mg/dL (8-23); Calcium 8.6 mg/dL (8.5-10.5); Carbon Dioxide 25 mmol/L (22-29); Chloride 99 mmol/L (98-107); Glomerular Filtration Rate 55.8 mL/min (90-130); Glucose 106 mg/dL (65-115); Osmolality Calculated 290 mOsm/kg (285-295); Potassium 3.5 mmol/L (3.5-5.1); Sodium 139 mmol/L (136-145)
--- NOTE | 2024-08-18 09:53 | PM.OP ---
Operative Report Date of procedure: August 18, 2024 Surgeon: Terese Bustillos MD Procedure: This patient underwent left and right heart catheterization with the left and right coronary angiogram. He was found to have severe disease in the proximal segment of the high obtuse marginal branch. Moderate disease was noted in the mid to distal LAD. Right coronary artery was found to have mild disease. He also was found to have severe pulmonary hypertension. Reviewed and discussed the cardiac catheterization data with Dr. Resendiz. It is thought to be appropriate to consider PCI of the high OM lesion and an IFR of the LAD lesion. The angiogram findings and the plan were discussed with the patient and his daughter.
[2024-08-18 10:05] LABS: Arterial Blood Gas Hematocrit 27.2 % (42-52); Blood Gas Operator Identificat GD; Blood Gas Sample Site Not specified; Carboxyhemoglobin 1.4 %THgb (0.4-20.1); HGB O2 Sat 44.8 % (95-100); Methemoglobin 1.1 % (0.4-1.5); Oxygen Device ROOM AIR; Total Hemoglobin 8.9 g/dL (14-18)
[2024-08-18 10:07] LABS: Arterial Blood Gas Hematocrit < 10.0 % (42-52); Blood Gas Operator Identificat GE; Blood Gas Sample Type Not specified; Carboxyhemoglobin 2.5 %THgb (0.4-20.1); HGB O2 Sat 51.3 % (95-100); Methemoglobin 3.5 % (0.4-1.5); Oxygen Device ROOM AIR; Total Hemoglobin < 5.0 g/dL (14-18)
[2024-08-18 10:09] LABS: Arterial Blood Gas Hematocrit 16.3 % (42-52); Blood Gas Operator Identificat GD; Blood Gas Sample Site Not specified; Blood Gas Sample Type Not specified; Carboxyhemoglobin 1.5 %THgb (0.4-20.1); Methemoglobin 1.8 % (0.4-1.5); Oxygen Device ROOM AIR; Total Hemoglobin 5.3 g/dL (14-18)
[2024-08-18 10:11] LABS: Arterial Blood Gas Hematocrit 38.3 % (42-52); Blood Gas Operator Identificat GD; Blood Gas Sample Site Not specified; Blood Gas Sample Type Not specified; Carboxyhemoglobin 1.4 %THgb (0.4-20.1); HGB O2 Sat 91.2 % (95-100); Methemoglobin 0.7 % (0.4-1.5); Oxygen Device ROOM AIR; Total Hemoglobin 12.5 g/dL (14-18)
[2024-08-18 10:12] LABS: Blood Gas Sample Type Not specified
--- NOTE | 2024-08-18 10:59 | PM.PROC ---
Procedure Note: Date of procedure: 08/18/24 Pre-procedure diagnosis: LV dysfunction/ Chest pain Post-procedure diagnosis: other (Severe OM 1 stenosis s/p PCI with 1 stent. Moderate to severe LAD stenosis) Procedure: Severe OM1 stenosis status post successful revascularization with 1 stent. Moderate to severe LAD stenosis status post IFR of mid LAD. iFR was abnormal. Status post PCI with 1 stent. Diagonal artery had ostial stenosis status post balloon angioplasty Plavix and eliquis Performing Provider: Edinson Resendiz Estimated blood loss (mL): 10 Complications: None Condition: stable Disposition: floor Coding Level of Care Code [facility]
--- NOTE | 2024-08-18 11:06 | PC.NURSE ---
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 Angioseal in place to right femoral artery and venous sheath stitched in place. No pressure bag attached. No s/s of bleeding or hematoma formation observed. Patient denies pain to site. Instructed patient on site care with restrictions. Patient verbalized understanding.
--- NOTE | 2024-08-18 13:00 | PC.NURSE ---
Venous sheath removed at this time per protocol. Maintained pressure for 10min. Right femoral remain c,d,i without s/s of bleeding or hematoma formation observed. Instructed patient on site care with restrictions. Patient verbalized complete understanding.
[2024-08-18] MEDS: bumetanide 1 mg Tablet PO (16:46)
[2024-08-18] MEDS: metoprolol tartrate 25 mg Tablet PO (19:54)
[2024-08-19] VITALS: BP 120/79; PULSE 84; RESP 21; TEMP 37; O2SAT 94
[2024-08-19 04:00] VITALS: BP 135/75; PULSE 91; RESP 21; TEMP 37; O2SAT 96
[2024-08-19 07:56] VITALS: PULSE 79
[2024-08-19] MEDS: aspirin 81 mg EC Tablet PO (07:56)
[2024-08-19] MEDS: metoprolol tartrate 25 mg Tablet PO (07:56)
[2024-08-19] MEDS: digoxin 125 mcg Tablet PO (07:56)
[2024-08-19] MEDS: clopidogrel 75 mg Tablet PO (07:57)
[2024-08-19] MEDS: duloxetine 60 mg Capsule PO (07:57)
[2024-08-19] MEDS: potassium chloride ER 10 mEq Tablet PO (07:57)
[2024-08-19] MEDS: bumetanide 1 mg Tablet PO (07:57)
[2024-08-19] MEDS: amiodarone 200 mg Tablet PO (07:57)
[2024-08-19 08:00] VITALS: BP 105/65; PULSE 73; RESP 16; TEMP 36.4; O2SAT 92
--- NOTE | 2024-08-19 09:35 | P.PN_ITS ---
Subjective 2 Subjective: Patient underwent cardiac organization yesterday and was found to have a high- grade lesion in the high obtuse marginal/intermedius artery and ostium of the first diagonal artery. Also had a hemodynamically significant stenosis in the mid LAD. He underwent PCI of these lesions Medications: Medication Review Details: Current Medications Amiodarone HCl (Amiodarone 200 Mg Tablet) 200 mg PO DAILY [facility] Last Admin: 08/19/24 07:57 Dose: 200 mg Aspirin (Aspirin 81 Mg Ec Tablet) 81 mg PO DAILY [facility] Last Admin: 08/19/24 07:56 Dose: 81 mg Bumetanide (Bumetanide 1 Mg Tablet) 1 mg PO BID [facility] Last Admin: 08/19/24 07:57 Dose: 1 mg Clopidogrel Bisulfate (Clopidogrel 75 Mg Tablet) 75 mg PO DAILY [facility] Last Admin: 08/19/24 07:57 Dose: 75 mg Digoxin (Digoxin 125 Mcg Tablet) 125 mcg PO DAILY [facility] Last Admin: 08/19/24 07:56 Dose: 125 mcg Duloxetine HCl (Duloxetine 60 Mg Capsule) 60 mg PO DAILY [facility] Last Admin: 08/19/24 07:57 Dose: 60 mg Metoprolol Tartrate (Metoprolol Tartrate 25 Mg Tablet) 25 mg PO BID@0900,2100 [facility] Last Admin: 08/19/24 07:56 Dose: 25 mg Potassium Chloride (Potassium Chloride Er 10 Meq Tablet) 10 meq PO DAILY [facility] Last Admin: 08/19/24 07:57 Dose: 10 meq Vitals/I&O/Wt Last Vital Signs Temp 97.6 F 08/19/24 08:00 Pulse 73 08/19/24 08:00 Resp 16 08/19/24 08:00 BP 105/65 08/19/24 08:00 Pulse Ox 92 08/19/24 08:00 O2 Del Method Nasal Cannula 08/19/24 08:00 O2 Flow Rate 6 08/18/24 16:39 08/18/24 08/19/24 08/19/24 22:59 06:59 14:59 Intake Total 600 / 840 Output Total 300 / 650 Balance 300 / 190 Weight last 48 hrs Weight 220 lb Physical Exam 2 Narrative: GENERAL: The patient is alert and oriented times three. Not in any acute distress. HEENT: No significant pallor, icterus or lymphadenopathy.Oral cavity: There are no mucous membrane lesions. NECK: Trachea appears to be central. No masses noted. No JVD or thyromegaly appreciated. RESPIRATORY: Chest is symmetrical. No intercostals muscle retraction or any accessory muscle activation. There is no chest wall tenderness. Breath sounds are heard bilaterally. Occasional scattered wheezing BREASTS: Deferred. HEART: The first heart sound is variable. No S3 or S4. Short systolic murmur in the lateral border. No diastolic murmurs.. No pericardial rub ABDOMEN: No vessel pulsations or distention. No tenderness. No organomegaly appreciated. Bowel sounds are normally heard. : Deferred. RECTAL: Deferred. LYMPHATIC: No lymphadenopathy noted in the neck. EXTREMITIES: No edema or cyanosis. No clubbing. Right groin has no hematoma or bleeding. MUSCULOSKELETAL: No acute joint deformities or swelling SKIN: There are no significant rashes or ecchymosis NEUROPSYCHIATRIC: The patient is alert and oriented x3. Appears to be in a good mood. No tremors or rigidity noted. Data 08/18/24 08:25 08/19/24 10:10 Other Labs: Laboratory Last Values WBC 4.64 10^3/uL (3.29-11.43) 08/18/24 08:25 RBC 4.03 10^6/uL (3.85-5.65) 08/18/24 08:25 Hgb 11.80 g/dL (11.27-16.99) 08/18/24 08:25 Hct 35.2 % (37-53) L 08/18/24 08:25 MCV 87.3 fl (82-101) 08/18/24 08:25 MCH 29.3 pg (27-33) 08/18/24 08:25 MCHC 33.5 g/dL (30-55) 08/18/24 08:25 RDW 13.7 % (12.1-15.1) 08/18/24 08:25 Plt Count 275 10^3/cmm (157-399) 08/18/24 08:25 MPV 9.4 fL (7.4-10.4) 08/18/24 08:25 Neut % (Auto) 63.2 % 08/18/24 08:25 Lymph % (Auto) 24.6 % 08/18/24 08:25 Vernon % (Auto) 7.8 % 08/18/24 08:25 Eos % (Auto) 2.6 % 08/18/24 08:25 Baso % (Auto) 0.9 % 08/18/24 08:25 Neut # (Auto) 2.94 10^3/uL (1.8-7.7) 08/18/24 08:25 Lymph # (Auto) 1.1 10^3/uL (0.8-4.8) 08/18/24 08:25 Vernon # (Auto) 0.4 10^3/uL (0.2-0.9) 08/18/24 08:25 Eos # (Auto) 0.1 10^3/uL (0.0-0.8) 08/18/24 08:25 Baso # (Auto) 0.0 10^3/uL (0.0-0.1) 08/18/24 08:25 Nucleated RBC % (auto) 0 % 08/18/24 08: Nucleated RBCs # 0.0 /100WBC 08/18/24 08:25 Specimen Type Not specified 08/18/24 09:50 Specimen Type Not specified 08/18/24 09:50 Specimen Type Not specified 08/18/24 09:50 Specimen Type Not specified 08/18/24 09:50 Sample Site Not Reportable 08/18/24 09:50 Sample Site Not specified 08/18/24 09:50 Sample Site Not specified 08/18/24 09:50 Sample Site Not specified 08/18/24 09:50 Vivek Test N/a 08/18/24 09:50 Vivek Test N/a 08/18/24 09:50 Vivek Test N/a 08/18/24 09:50 Vivek Test N/a 08/18/24 09:50 A-a O2 Gradient Not Reportable 08/18/24 09:50 A-a O2 Gradient Not Reportable 08/18/24 09:50 A-a O2 Gradient Not Reportable 08/18/24 09:50 A-a O2 Gradient Not Reportable 08/18/24 09:50 Hematocrit 16.3 % (42-52) L 08/18/24 09:50 Hematocrit 27.2 % (42-52) L 08/18/24 09:50 Hematocrit 38.3 % (42-52) L 08/18/24 09:50 Hematocrit < 10.0 % (42-52) L 08/18/24 09:50 Hgb O2 Saturation 44.8 % (95-100) L 08/18/24 09:50 Hgb O2 Saturation 47.0 % (95-100) L 08/18/24 09:50 Hgb O2 Saturation 51.3 % (95-100) L 08/18/24 09:50 Hgb O2 Saturation 91.2 % (95-100) L 08/18/24 09:50 Carboxyhemoglobin 1.4 %THgb (0.4-20.1) 08/18/24 09:50 Carboxyhemoglobin 1.4 %THgb (0.4-20.1) 08/18/24 09:50 Carboxyhemoglobin 1.5 %THgb (0.4-20.1) 08/18/24 09:50 Carboxyhemoglobin 2.5 %THgb (0.4-20.1) 08/18/24 09:50 Methemoglobin 0.7 % (0.4-1.5) 08/18/24 09:50 Methemoglobin 1.1 % (0.4-1.5) 08/18/24 09:50 Methemoglobin 1.8 % (0.4-1.5) H 08/18/24 09:50 Methemoglobin 3.5 % (0.4-1.5) H 08/18/24 09:50 Total Hemoglobin 5.3 g/dL (14-18) L 08/18/24 09:50 Total Hemoglobin 8.9 g/dL (14-18) L 08/18/24 09:50 Total Hemoglobin 12.5 g/dL (14-18) L 08/18/24 09:50 Total Hemoglobin < 5.0 g/dL (14-18) L 08/18/24 09:50 O2 Delivery Device Room air 08/18/24 09:50 O2 Delivery Device Room air 08/18/24 09:50 O2 Delivery Device Room air 08/18/24 09:50 O2 Delivery Device Room air 08/18/24 09:50 FiO2 21.0 % 08/18/24 09:50 FiO2 21.0 % 08/18/24 09:50 FiO2 21.0 % 08/18/24 09:50 Keyseater Operator ID Gd 08/18/24 09:50 Keyseater Operator ID Gd 08/18/24 09:50 Keyseater Operator ID Gd 08/18/24 09:50 Keyseater Operator ID Ge 08/18/24 09:50 Sodium 135 mmol/L (136-145) L 08/19/24 10:10 Potassium 3.5 mmol/L (3.5-5.1) 08/19/24 10:10 Chloride 98 mmol/L (98-107) 08/19/24 10:10 Carbon Dioxide 24 mmol/L (22-29) 08/19/24 10:10 Anion Gap 16.5 (5-19) 08/19/24 10:10 BUN 19 mg/dL (8-23) 08/19/24 10:10 Creatinine 1.2 mg/dL (0.7-1.2) 08/19/24 10:10 GFR Calculation 61.1 mL/min (90-130) L 08/19/24 10:10 Glucose 117 mg/dL (65-115) H 08/19/24 10:10 Calculated Osmolality 283 mOsm/kg (285-295) L 08/19/24 10:10 Calcium 8.4 mg/dL (8.5-10.5) L 08/19/24 10:10 A&P Assessment and plan (1) 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 Currently seems to be stable with no chest pain or shortness of breath. (2) Paroxysmal atrial fibrillation with rapid ventricular response: The patient is on amiodarone, metoprolol and digoxin. The heart rate seems to be under control at this time. He is also on oral anticoagulation. Patient may continue on the current medications. Eliquis to be restarted tomorrow. (3) Acute on chronic systolic CHF (congestive heart failure), NYHA class 4: The heart failure is fairly compensated at this time. May continue on the current medications. (4) Nonischemic congestive cardiomyopathy: The extent of cardiomyopathy seems to be out of proportion to the ischemia. We may reevaluate the LV function after 3 months. If the patient has not been tried on the Entresto we may go ahead and start him on losartan as a bridge towards Entresto. Will do a BMP during his office visit. If the creatinine is stable, we may start him on Entresto at that time. (5) Benign essential HTN: The blood pressure is fairly under control. May continue on the current medication. (6) Hyperlipidemia: May continue on the current management. Plan His creatinine was 1.3 yesterday. The repeat creatinine today is 1.2 Will try to optimize his medication for heart failure, GDMT. Restart the Eliquis. Continue on Plavix and baby aspirin for a month. Based on the clinical progress, further recommendations will be made. Will be seen in the clinic in 1 week. Will be closely monitoring his kidney function. 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
[2024-08-19 10:42] LABS: Anion Gap 16.5 (5-19); Blood Urea Nitrogen 19 mg/dL (8-23); Calcium 8.4 mg/dL (8.5-10.5); Carbon Dioxide 24 mmol/L (22-29); Chloride 98 mmol/L (98-107); Creatinine Clr Calc Pharmacy 75.8379; Glomerular Filtration Rate 61.1 mL/min (90-130); Glucose 117 mg/dL (65-115); Osmolality Calculated 283 mOsm/kg (285-295); Potassium 3.5 mmol/L (3.5-5.1); Sodium 135 mmol/L (136-145)
[2024-08-19 11:48] VITALS: BP 106/75; PULSE 78; RESP 27; TEMP 36.6; O2SAT 95
--- NOTE | 2024-08-19 12:50 | PC.NURSE ---
Discharge information ready. Waiting for transportation
--- NOTE | 2024-08-19 14:02 | PC.NURSE ---
Patient discharged to home at this time. Instruction provided regarding follow up needs, new medications with changes and site care with restrictions. patient verbalized complete understanding. Dressing to right groin remains c,d,i without s/s of bleeding or hematoma formation. New Rx transmitted to [place], [place]. Patient taken by wheelchair to private vehicle with family at side. Patient denies pain or needs. No distress observed.
== END 2024-08-19 14:04 | disposition home or self-care (01) ==
LOC: CCL 07:15 → CSU 10:54
PROVIDERS: Internal Medicine; PCP Family Medicine; Visit Provider Internal Medicine Cardiovascular Disease
DX: I25.118 Atherosclerotic heart disease of native coronary artery with other forms of angina pectoris (principal); I48.0 Paroxysmal atrial fibrillation; I50.23 Acute on chronic systolic (congestive) heart failure; I42.0 Dilated cardiomyopathy; E78.2 Mixed hyperlipidemia; Z79.82 Long term (current) use of aspirin; Z95.5 Presence of coronary angioplasty implant and graft; Z82.3 Family history of stroke; G47.33 Obstructive sleep apnea (adult) (pediatric); F17.220 Nicotine dependence, chewing tobacco, uncomplicated; I11.0 Hypertensive heart disease with heart failure
CPT/HCPCS: 80048; 82810; 85025; 85347; 92920; 93460; 93571; 96374; 99152; 99153; C1725; C1751; C1753; C1760; C1769; C1874; C1887; C1894; C9600; C9601; G0269; J0153; J1644; J2250; J2405; J3010; J3490; J7030; J7050; J9999; Q0163; Q9967

== ENCOUNTER 2024-09-15 15:49 | Outpatient (CLI) | payer BC, SELFPAY ==
[2024-09-15 16:08] LABS: Hematocrit 35.5 % (37-53); Hemoglobin 11.70 g/dL (11.27-16.99); Mean Corpuscular HGB Conc 33.0 g/dL (30-55); Mean Corpuscular Hemoglobin 29.0 pg (27-33); Mean Corpuscular Volume 88.1 fl (82-101); Nucleated Red Blood Cells % 0 %; Platelet Count 201 10^3/cmm (157-399); Red Blood Count 4.03 10^6/uL (3.85-5.65); White Blood Count 3.48 10^3/uL (3.29-11.43)
[2024-09-15 16:43] LABS: Anion Gap 18.8 (5-19); Blood Urea Nitrogen 23 mg/dL (8-23); Calcium 9.5 mg/dL (8.5-10.5); Carbon Dioxide 26 mmol/L (22-29); Chloride 98 mmol/L (98-107); Glucose 86 mg/dL (65-115); NT Pro B Type Natriuretic Pept 2664 pg/mL (0-125); Osmolality Calculated 291 mOsm/kg (285-295); Potassium 3.8 mmol/L (3.5-5.1); Sodium 139 mmol/L (136-145)
== END 2024-09-15 15:50 | disposition home or self-care (01) ==
PROVIDERS: PCP Family Medicine; Visit Provider Nurse Practitioner Family
DX: I50.20 Unspecified systolic (congestive) heart failure (principal); I50.23 Acute on chronic systolic (congestive) heart failure
CPT/HCPCS: 36415; 80048; 83880; 85025

== ENCOUNTER 2024-10-05 12:47 | Inpatient (IN) | payer BC, SELFPAY ==
[2024-10-05] VITALS (11 sets, daily range): BP systolic 103–134; BP diastolic 60–92; PULSE 78–107; RESP 15–17; TEMP 36.6–36.9; O2SAT 82–97; BMI 30.7
--- OUTSIDE RECORDS SUMMARY | 2024-10-05 11:40 | XMS_ITS | Encounter Summary ---
Author Organization [facility] Address [address] [place] [address] Care Team Providers Care Lang Path Therapist Name Role Phone Francis Elmore MD Primary Care Provider [phone] Reason for Visit * Reason Comments Low Oxygen Encounter Details Date Type Department Care Team (Latest Contact Info) Description 10/05/2024 11:40 AM CDT Office Visit [facility] Medicine [place] [address] [address] Fidelia Montalvo, [facility] [address] [address] Mixed hyperlipidemia (Primary Dx); Primary hypertension; Tobacco use; H/O heart artery stent; Hypoxia Social History Tobacco Use Types Packs/Day Years Used Date Smoking Tobacco: Never Smokeless Tobacco: Current Comments:Quit smoking: one c an q 1.5 days x 33 yrs Alcohol Use Standard Drinks/Week Comments Yes 1.7 (1 standard drink = 0.6 oz p ure alcohol) Sex and Gender Information Value Date Recorded Sex Assigned at Not on file 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 Gender Identity Not on file Sexual Orientation Not on file documented as of this encounter Last Filed Vital Signs Vital Sign Reading Time Taken Comments Blood Pressure 138/64 10/05/2024 11:30 AM CDT Pulse 96 10/05/2024 11:30 AM CDT Temperature 37 C (98.6 F) 10/05/2024 11:30 AM CDT Respiratory Rate 16 10/05/2024 11:3 0 AM CDT Oxygen Saturation 84% 10/05/2024 11: 30 AM CDT Inhaled Oxygen Concentration - - Weight 105.5 kg (232 lb 9.6 oz) 025 11:30 AM CDT Height 180.3 cm (5' 11 ) 10/05/2024 11: 30 AM CDT Body Mass Index 32.44 10/05/2024 11:30 AM CDT documented in this encounter Progress Notes * Fidelia Montalvo, LICENSED PSYCHOLOGIST MANAGER - 10/05/2024 12:11 PM CDT [facility] 10/05/2024 Subjective: Colin Moya is a 64 y.o. male who comes today for evaluation of Low Oxygen . History of Present Illness The patient is a 64-year-old male presenting with hypoxia at 85 percent. He reports an inability to increase his oxygen level, which he checked at home due to difficulty breathing. He was recently discharged from [facility] at the end of 07/2024, where he required oxygen supportafter episode of Afib with RVR and cardiac stent placement. Since then, he has been managing without supplemental oxygen. His heart function is subjectively at 27 percent, and he has undergone stent placement and balloon angioplasty. His medication regimen was recently adjusted, reducing his Bumex dosage from 2 tablets in the morning and 1 in the evening to 1 tablet twice daily. Last week, he experienced a fever and has been coughing for the past two days. He also reported feeling extremely cold. Despite these symptoms, he mentions that his shortness of breath has improved today. PAST SURGICAL HISTORY: - Stent placement - Balloon angioplasty Review of Systems Constitutional: Positive for chills. Negative for fever and malaise/fatigue. HENT: Negative for congestion, ear pain and sore throat. Eyes: Negative for blurred vision. Respiratory: Positive for cough and shortness of breath. Cardiovascular: Negative for chest pain. Gastrointestinal: Negative for abdominal pain, constipation, diarrhea, nausea and vomiting. Genitourinary: Negative for dysuria and urgency. Musculoskeletal: Negative for joint pain and myalgias. Neurological: Negative for dizziness and headaches. All other systems reviewed and are negative. Objective: Vitals: 10/05/24 1130 Temp: 98.6 ??F (37 ??C) Pulse: 96 BP: 138/64 Resp: 16 SpO2: (!) 84% Physical Exam Constitutional: General: He is not in acute distress. Appearance: Normal appearance. He is ill-appearing. He is not toxic-appearing. HENT: Head: Normocephalic and atraumatic. Right Ear: Tympanic membrane normal. Left Ear: Tympanic membrane normal. Nose: Nose normal. Mouth/Throat: Mouth: Mucous membranes are moist. Eyes: Extraocular Movements: Extraocular movements intact. Pupils: Pupils are equal, round, and reactive to light. Cardiovascular: Rate and Rhythm: Normal rate and regular rhythm. Pulses: Normal pulses. Heart sounds: Normal heart sounds. Pulmonary: Effort: Tachypnea and accessory muscle usage present. No respiratory distress. Breath sounds: Normal breath sounds. No decreased air movement. No decreased breath sounds, wheezing, rhonchi or rales. Abdominal: General: Abdomen is flat. Palpations: Abdomen is soft. Tenderness: There is no abdominal tenderness. There is no guarding. Musculoskeletal: General: Normal range of motion. Cervical back: Normal range of motion and neck supple. Skin: General: Skin is warm and dry. Neurological: General: No focal deficit present. Mental Status: He is alert and oriented to person, place, and time. Psychiatric: Mood and Affect: Mood normal. Behavior: Behavior normal. Past medical history, surgical history and social history reviewed. Past Medical History: Diagnosis Date A-fib ([facility]) HTN (hypertension) Hyperlipidemia Sleep apnea Procedures Assessment/Plan: ICD-10-CM ICD-9-CM 1. Mixed hyperlipidemia E78.2 272.2 2. Primary hypertension I10 401.9 3. Tobacco use Z72.0 305.1 4. H/O heart artery stent Z95.5 V45.82 Assessment & Plan 1. Hypoxia 2. HTN 3. Tobacco use 4. Recent cardiac stent placement - Oxygen saturation is currently at 84% - Lung sounds are diminished but no obvious rales or rhonchi and he has no obvious lower extremity edema - COVID-19 swab was negative - Given his recent stent placement and hospital admission for Afib with RVR, current hypoxia without O2 at home, we will refer him to the ER for further evaluation and management. iFdelia Montalvo, LICENSED PSYCHOLOGIST MANAGER-ZARI This note was automatically generated by a Generative AI technology ([employer]), reviewed, edited, and finalized by NICOLE Albert. The author of this note, patient (or authorized veterans employment representative), and all other persons present consent to the audio recording of this visit for charting documentation purposes. documented in this encounter Plan of Treatment Upcoming Encounters Date Type Department Care Team (Late st Contact Info) Description 12/08/2024 4:00 PM CDT Office Visit [facility] [address] [address] Francis Elmore MD [address] [phone] documented as of this encounter Visit Diagnoses Diagnosis Mixed hyperlipidemia- Primary Primary hypertension Unspecified essential hypertension Tobacco use Tobacco use disorder H/O heart artery stent Postsurgical percutaneous transluminal coronary angioplasty status Hypoxia Hypoxemia documented in this encounter Care Teams Lang Path Therapist Relationship Specialty Start Date End Date Francis Elmore MD [address] [address] PCP - General Family Practice 04/04/21 documented as of this encounter
--- NOTE | 2024-10-05 12:50 | XR_ITS ---
WS: [id number] Portable AP upright chest, 10/05/2024 Clinical Data: cp Comparison: Portable chest, 07/29/2024 Findings: The bilateral pulmonary opacities have diminished significantly compared to 1 week ago. The heart size remains the same. The electronic support devices overlying the heart and mediastinum remain in the same position. The heart size remains the same. XR/XR chest 1V portable 10483 Impression: 1. The bilateral alveolar opacities have diminished significantly. 2. The remainder of the chest shows no change.
--- NOTE | 2024-10-05 12:50 | ECG_ITS ---
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 Measurements Intervals [place] Rate: 92 P: 0 VT: 0 QRS: 66 QRSD: 134 T: 251 QT: 399 QTc: 494 Interpretive Statements ATRIAL FIBRILLATION INTRAVENTRICULAR CONDUCTION DELAY [130+ ms QRS DURATION] ANTEROSEPTAL MYOCARDIAL INFARCTION ,AGE INDETERMINATE Compared to ECG 07/29/2024 01:06:14 Myocardial infarct finding now present Electronically Signed On 10-06-2024 10:24:12 CDT by Edinson Resendiz M.D. [email or web address]
--- OUTSIDE RECORDS SUMMARY | 2024-10-05 12:53 | XMS_ITS | Encounter Summary ---
Author Organization [facility] Address [address] [place] [address] Care Team Providers Care Analytical Chemistry Teacher Name Role Phone Sumi Oliver MD Primary Care Provider Encounter Details Date Type Department Care Team (Latest Contact Info) Description 06/02/2000 Outpatient Historical [facility] Family Medicine- [address] [place], [place] [address] Uri Burleson, NO ADDRESS ON FILE Dizziness and giddiness (Primary Dx); Labyrinthitis, unspecified Social History Tobacco Use Types Packs/Day Years Used Date Smoking Tobacco: Never Assessed Sex and Gender Information Value Date Recorded Sex Assigned at Not on file 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
--- OUTSIDE RECORDS SUMMARY | 2024-10-05 12:53 | XMS_ITS | Encounter Summary ---
Author Organization [facility] Address [address] [place] [address] Care Team Providers Care Research Nurse Practitioner Name Role Phone Francis Elmore MD Primary Care Provider [phone] Reason for Visit * Reason Comments Clinical Consult Before Scheduling Encounter Details Date Type Department Care Team (Late st Contact Info) Description 10/04/2024 Nurse Triage [facility] Medicine [address] [address] Francis Elmore MD [address] [address] Social History Tobacco Use Types Packs/Day Years Used Date Smoking Tobacco: Never Smokeless Tobacco: Current Comments:Quit smoking: one c an q 1.5 days x 33 yrs Alcohol Use Standard Drinks/Week Comments Yes 1.7 (1 standard drink = 0.6 oz p ure alcohol) Sex and Gender Information Value Date Recorded Sex Assigned at Not on file 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 Denies ext pain, numbness or tingling, no pain in neck or jaw, denies N&V. Pt was advised to go to ER and refused. Was advised of walk in clinic and refused, wanted to schedule appointment in [place]. Spouse then denied pt was having chest pain. Appointment scheduled per pt and spouse request. Go to ED Now, See More Appropriate Protocol * Telephone Encounter - Frannie Pearl - 10/04/2024 8:06 AM CDT Copied from [facility] #[id number]. Topic: Symptomatic Care >> Oct 04, 2024 8:05 AM Frannie Trejo wrote: Has this patient seen any provider (current or former) at the requested clinic in the past? Yes, Select the appropriate age range and symptom Patient has symptoms and is seeking care. Caller Name: Colin Moya Callback Number: Telephone Information: Call Notes: retaining water on chest, having difficulty breathing. Age Range/Symptom: Adult 18+ - Breathing difficulty, any, OR Shortness of Breath (does not include congestion) Is there an encounter open? No Transferred to [facility] Tyrell answered call. documented in this encounter Plan of Treatment Upcoming Encounters Date Type Department Care Team (Late st Contact Info) Description 12/08/2024 4:00 PM CDT Office Visit [facility] Family Medicine [place] [address] [address] Francis Elmore MD [address] [address] documented as of this encounter Visit Diagnoses Not on filedocumented in this encounter Care Teams Research Nurse Practitioner Relationship Specialty Start Date End Date Francis Elmore MD [address] [address] PCP - General Family Practice 04/04/21 documented as of this encounter
--- OUTSIDE RECORDS SUMMARY | 2024-10-05 12:53 | XMS_ITS | Clinical Summary ---
Author Organization [facility] [place] Address 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 Gender Identity Not on file Sexual Orientation Not on file Occupation Industry Job Start Date Job End Date Not on file Not on file Not on file Not on file Last Filed Vital Signs Vital Sign Reading Time Taken Comments Blood Pressure 158/92 05/03/2020 1:24 PM WOOL HAT FINISHER Pulse 96 05/03/2020 1:24 PM WOOL HAT FINISHER Temperature 36.7 C (98 F) 05/03/2020 1:24 PM WOOL HAT FINISHER Respiratory Rate 20 05/03/2020 1:24 PM WOOL HAT FINISHER Oxygen Saturation 98% 05/03/2020 1:24 PM WOOL HAT FINISHER Inhaled Oxygen Concentration - - Weight 116.5 kg (256 lb 12.8 oz) 05/03/2020 1:24 PM WOOL HAT FINISHER Height 180.3 cm (5' 11 ) 05/03/2020 1:24 PM WOOL HAT FINISHER Body Mass Index 35.82 05/03/2020 1:24 PM WOOL HAT FINISHER Plan of Treatment Health Maintenance Due Date Last Done Comments Pre-Diabetes and Diabetes Screening 1960 DTAP/TDAP/TD VACCINES (1 - Tdap) 02/15/1980 COLORECTAL SCREENING 2006 Colorectal Cancer Screening 2006 FIT-DNA Q 3 years 2006 FIT/FOBT Q 1 year 2006 Flex Sig/CT Colonography Q 5 years 2006 ZOSTER VACCINE (1 of 2) 2011 Preventative Visit- Commercial 03/09/2024 INFLUENZA VACCINE (#1) 2024 , 05/03/2020, 03/23/2019, Additional history exists RSV VACCINE (60+ or ) (1 - 1-dose 75+ series) 02/15/2036 Insurance [facility] Care Teams Ordnance Engineering Technician Relationship Specialty Start Date End Date Sumi Oliver MD [address] [phone] PCP - General Family Practice 04/09/20
--- OUTSIDE RECORDS SUMMARY | 2024-10-05 12:53 | XMS_ITS | Encounter Summary ---
Author Organization [facility] Address [address] [place] [address] Care Team Providers Care Drug Safety Associate Name Role Phone Sumi Oliver MD Primary Care Provider Encounter Details Date Type Department Care Team (Latest Contact Info) Description 06/08/1998 Outpatient Historical [facility] [place] Family Medicine- [place] [address] [place] [address] Mayra Cherry NO ADDRESS ON FILE Pneumonia, organism unspecified(486) (Primary Dx) Social History Tobacco Use Types Packs/Day Years Used Date Smoking Tobacco: Never Assessed Sex and Gender Information Value Date Recorded Sex Assigned at Not on file 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
--- OUTSIDE RECORDS SUMMARY | 2024-10-05 12:53 | XMS_ITS | Patient Health Record ---
Author Organization [facility] Address [address] [place], [place] [id number] Care Team Providers Care Computer Network And Systems Engineer Name Role Phone Carlos Ledesma Primary Care Provider Colin Jenkins MD Unavailable [phone] Reason For Referral No Information Medications Medication SIG (Take, Route, Frequency, Duration) Notes Start Date End Date Status Cymbalta 30 mg 1 cap po orally BID; Duration: 30 day(s) 08/18/2013 Active lidocaine topical 5% 1 julia applied topic ally TID prn; Duration: 30 day(s) 08/22/2013 Active hydroCHLOROthiazide 25 mg 1 tab orally once a day Active cetirizine 10 mg 1 tab orally once a day Active lisinopril 20 mg 1 tab orally once a day Active amitriptyline 10 mg 1 tab orally BID Active gabapentin 300 mg 2 caps PO orally TID Active gemfibrozil 600 mg 1 tab orally 2 times a day Active Social History Tobacco Use: Social History Observation Description Date Details (start date - stop date) Never Smoker NA - NA Tobacco use: Question Answer Notes Additional Findings: Tobacco User Chews tobacco : nonsmoker Problems Problem Type SNOMED Code ICD Code Onset Dates Problem Status W/U Status Risk Notes Problem Postherpetic neuralgia (6263775) Postherpetic neuralgia (053.19) Active confirmed Problem Shingles (2188703) Shingles (053.9) Active confirmed Problem Hypersomnia (780.54) Active confirmed Problem Long-term drug therapy (086326875) LONG-TERM USE MEDS NEC (V58.69) Active confirmed r/o substance abuse Plan Of Treatment No Information Insurance Providers Payer Name Payer Address Payer Phone Subscriber Number Group Number Insured Name Patient Relationship to Insured Coverage Start Date Coverage End Date [facility] [address] [place] [address] [id number] Colin Moya Self - patient is the insured Medical (General) History Medical History History ICD Code Shingles Post-herpetic neuralgia Hypertension Hypercholesterolemia Seasonal allergies Hospitalization History Reason Date(Month/Year) Dizziness 1994 Flu (as a child)
--- OUTSIDE RECORDS SUMMARY | 2024-10-05 12:54 | XMS_ITS | Encounter Summary ---
Author Organization [facility] Address [address] [place] [address] Care Team Providers Care Kettle Firer Name Role Phone Sumi Oliver MD Primary Care Provider Encounter Details Date Type Department Care Team (Latest Contact Info) Description 04/17/2006 Outpatient Historical [facility] Family Medicine- [place] [address] [place] [phone] Jeanna Agee MD NO ADDRESS ON FILE Other Alteration of Consciousness (Primary Dx); Elevated Blood Pressure Reading without Diagnosis of Hypertension Social History Tobacco Use Types Packs/Day Years Used Date Smoking Tobacco: Never Assessed Sex and Gender Information Value Date Recorded Sex Assigned at Not on file 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
--- OUTSIDE RECORDS SUMMARY | 2024-10-05 12:54 | XMS_ITS | Clinical Summary ---
Author Organization [facility] Address [address] [facility] Attn: Epic Prelude ADT [place] [address] Care Team Providers Care Computer Trainer Name Role Phone Francis Elmore MD Primary Care Provider [phone] Allergies Active Allergy Reactions Criticality Noted Date Comments Rosuvastatin Nausea and Vomiting Low 09/15/2024 Simvastatin Nausea and Vomiting Low 04/07/2011 Medications OTHER OTC allergy med prn . Active CPAP / BIPAP suppliesIndicatio ns:Other sleep apnea Length of need: 99 monthsMask Type: full face with headgear every 6 months, mask only every 3 months,1 cushions per month. Tubing: non heated 1 every 3 months, water chamber 1 every 6 months, chin strap 1 every 6 months, filters disposable 2 per month, filters reusable 1 per 6 months. Needs new compressor. 1 Each 0 018 Active Eliquis 5 mg tablet 023 Active digoxin (LANOXIN) 125 mcg (0.125 mg) tablet 023 Active DULoxetine (CYMBALTA) 60 mg Capsule, Delayed Release(E.C.)Maria De Jesus cations:Shingles (herpes zoster) polyneuropathy TAKE 1 CAPSULE BY MOUTH ONCE DAILY . NEEDS APPOINTMENT/LAB S PRIOR TO REFILLS 100 Capsule 3 024 Active amiodarone (CORDARONE) 200 mg tablet TAKE 1 TABLET BY MOUTH TWICE DAILY FOR 7 DAYS. THEN TAKE 1 TABLET BY MOUTH ONCE A DAY. 025 Active bumetanide (BUMEX) 1 mg tablet 2 times daily. Active metoprolol tartrate (LOPRESSOR) 25 mg tablet TAKE 1 TABLET BY MOUTH TWICE DAILY AT 0900 AND 2100 FOR 30 DAYS Active potassium CHLORIDE (KLOR-CON) 10 mEq Extended Release tablet Take 1 Tablet by mouth daily. Active aspirin (ECOTRIN EC) 81 mg Tablet, Delayed Release (E.C.) Take 1 Tablet (81 mg) by mouth daily. 100 Tablet 3 Active losartan (COZAAR) 25 mg tablet Take 1 Tablet by mouth daily. Active clopidogreL (PLAVIX) 75 mg Tablet Take 1 Tablet by mouth daily. Active cetirizine (ZyrTEC) 10 mg tablet 1 tab orally once a day Active evolocumab (Repatha SureClick) 140 mg/mL Pen InjectorIndicatio ns:Arteriosclerot ic cardiovascular disease,Allergy to statin medication Inject 1 mL (140 mg) by subcutaneous injection every 2 weeks. 6 mL 3 Active dilTIAZem (CARDIZEM CD, CARTIA XT) 120 mg Controlled Delivery 24 hour capsule Active predniSONE (DELTASONE) 20 mg tablet Take 1 Tablet by mouth 2 times daily. 2024 Discontinued rosuvastatin (CRESTOR) 10 mg tablet Take 1 Tablet by mouth daily. 2024 Discontinued Active Problems Problem Noted Date Diagnosed Date H/O heart artery stent 10/05/2024 Paroxysmal atrial fibrillation 12/04/2021 Obstructive sleep apnea 09/19/2016 Shingles (herpes zoster) polyneuropathy 02/05/20 16 Tobacco use 06/21/2015 Allergic rhinitis 07/18/2011 Hyperlipidemia 12/24/2007 HTN (hypertension) 12/24/2007 Overview (07/04/2020): Updating IMO/ICD9 Code and Description Encounters Date Type Department Care Team Description 10/05/2024 11:40 AM CDT Office Visit [address] [phone] Fidelia Hamilton FNP Mixed hyperlipidemia (Primary Dx); Primary hypertension; Tobacco use; H/O heart artery stent; Hypoxia 10/04/2024 Nurse Triage [address] [phone] Francis Elmore MD 09/21/2024 External Device Data STL ABSTRACTION Provider, Abstract 09/15/2024 3:00 PM CDT Office Visit [address] [phone] Ghislaine Aguilar FNP S/P cardiac cath (Primary Dx); Arteriosclerotic cardiovascular disease; Allergy to statin medication; Primary hypertension; Paroxysmal atrial fibrillation (CMS/HCC); Decompensated heart failure (CMS/HCC) 09/15/2024 Orders Only [facility] [address] [place] [address] Provider, Abstract 09/15/[address] [phone] Francis Elmore MD 09/06/2024 External Device Data STL ABSTRACTION Provider, Abstract 09/02/2024 10:00 AM CDT Office Visit [facility] [address] [facility] [address] [place] [address] Juli Pinto MD Paroxysmal atrial fibrillation (CMS/HCC) (Primary Dx); Cardiomyopathy, unspecified type (CMS/HCC) 09/02/[address] [phone] Francis Elmore MD Hospital Follow Up; Hospital Follow Up 08/30/[address] [phone] Francis Elmore MD 08/23/[address] [address] Francis Elmore MD Hospital Follow Up 08/15/2024 Orders Only [facility] [address] [facility] [address] [place] [phone] Juli Pinto MD Paroxysmal atrial fibrillation (CMS/HCC) (Primary Dx) 08/10/2024 External Device Data STL ABSTRACTION Provider, Abstract 08/08/2024 9:00 AM CDT Office Visit [address] [phone] LaurenGhislaine schmid FNP Encounter for support and coordination of transition of care (Primary Dx); Paroxysmal atrial fibrillation (CMS/HCC); Decompensated heart failure (CMS/HCC); Pneumonia due to infectious organism, unspecified laterality, unspecified part of lung 08/08/2024 Abstract [facility] [address] [facility] [address] [place] [phone] [facility], External Provider 08/03/2024 Orders Only [facility] [address] [place] [address] Provider, Abstract 08/02/2024 Orders Only [place] [place] [phone] Provider, Abstract 07/29/[address] [phone] Francis Elmore MD Information; Patient Communication from Last 3 Months Immunizations Immunization Administration [...] on file 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 Gender Identity Not on file Sexual Orientation [...] Mass Index 32.44 10/05/2024 11:30 AM CDT Plan of Treatment Upcoming Encounters Date Type Department Care Team (Late st Contact Info) Description 12/08/2024 4:00 PM CDT Office Visit [address] [phone] Francis Elmore MD [address] [phone] Health Maintenance Due Date Last Done Comments Pre-Diabetes and Diabetes Screening 1961 DTAP/TDAP/TD VACCINES (1 - Tdap) 02/15/1980 COLORECTAL SCREENING 2006 Colorectal Cancer Screening 2006 FIT-DNA Q 3 years 2006 FIT/FOBT Q 1 year 2006 Flex Sig/CT Colonography Q 5 years 2006 ZOSTER VACCINE (1 of 2) 2011 RSV VACCINE (60+ or ) (1 - Risk 60-74 years 1-dose series) 2021 COVID-19 Vaccine (3 - 2023-2 5 season) 2023 01/11/2021, 05/04/2020 Preventative Visit- Commercial 03/09/2024 INFLUENZA VACCINE (#1) 2024 3, 05/03/2020, 05/03/2020, Additional history exists Procedures Procedure Name Priority Date/Time Associated Diagnosis Comments MS ECG ROUTINE ECG W/LEAST 12 LDS W/I&R Routine 09/02/2024 10:29 AM CDT Paroxysmal atrial fibrillation (CMS/HCC) COMPREHENSIVE METABOLIC PANEL Routine 08/19/2024 4:05 PM CDT CL LT AND RT HEART CATH Routine 08/18/2024 4:06 PM CDT COMPREHENSIVE METABOLIC PANEL Routine 07/28/2024 10:26 AM CDT COMPREHENSIVE METABOLIC PANEL Routine 07/22/2024 10:23 AM CDT from Last 3 Months Results * MS ECG ROUTINE ECG W/LEAST 12 LDS W/I&R (09/02/2024 10:29 AM CDT) Narrative [facility] - 09/02/2024 10:29 AM CDT Juli Pinto MD 09/02/2024 10:30 AM In my note Procedure Note Juli Pinto MD - 09/02/2024 10:29 AM CDT In my note us Juli Pinto MD ECG ORDERABLES Final [id number] [address] [facility] [address] [place] [address], [place] [phone] * COMPREHENSIVE METABOLIC PANEL (08/19/2024 4:05 PM CDT) Only the most recent of3 resultswithin the time period is included. Blood us Abstract Provider CHEMISTRY ORDERABLES Final Res ult * CL LT AND RT HEART CATH (08/18/2024 4:06 PM CDT) us Abstract Provider FLUOROSCOPY ORDERABLES Final R esult from Last 3 Months Insurance [facility] PREFERRED Care Teams Computer Trainer Relationship Specialty Start Date End Date Francis Elmore MD [address] [facility] [address] [place] [address] PCP - General Family Practice 04/04/21
--- OUTSIDE RECORDS SUMMARY | 2024-10-05 12:54 | XMS_ITS | Encounter Summary ---
Author Organization [facility] Address [address] [place] [address] Care Team Providers Care Art Instructor Name Role Phone Sumi Oliver MD Primary Care Provider Encounter Details Date Type Department Care Team (Latest Contact Info) Description 10/30/2006 Outpatient Historical [facility] Family Medicine- [place] [address] [place] [phone] Jeanna Agee MD NO ADDRESS ON FILE Sprain and Strain of Unspecified Site of Elbow and Forearm (Primary Dx) Social History Tobacco Use Types Packs/Day Years Used Date Smoking Tobacco: Never Assessed Sex and Gender Information Value Date Recorded Sex Assigned at Not on file 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
--- OUTSIDE RECORDS SUMMARY | 2024-10-05 12:54 | XMS_ITS | Encounter Summary ---
Author Organization [facility] Address [address] [facility] [facility] [place] [address] Care Team Providers Care Auto Body Estimator Name Role Phone Sumi Oliver MD Primary Care Provider [phone] Encounter Details Date Type Department Care Team (Latest Contact Info) Description 06/08/2001 Outpatient Historical [facility] Family Medicine- [place] [address] [place], [place] [phone] rUi Burleson DO NO ADDRESS ON FILE ALLERGY, UNSPECIFIED (Primary Dx); DYSPHAGIA Social History Tobacco Use Types Packs/Day Years Used Date Smoking Tobacco: Never Assessed Sex and Gender Information Value Date Recorded Sex Assigned at Not on file 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
--- OUTSIDE RECORDS SUMMARY | 2024-10-05 12:54 | XMS_ITS | Encounter Summary ---
Author Organization [facility] Address [address] [place] [address] Care Team Providers Care Chief Radiology Name Role Phone Sumi Oliver MD Primary Care Provider Encounter Details Date Type Department Care Team (Latest Contact Info) Description 05/08/2006 Outpatient Historical [facility] [place] [facility]- [address] [place] [phone] Jeanna Agee MD NO ADDRESS ON FILE Unspecified Essential Hypertension (Primary Dx); Unspecified Sleep Apnea Social History Tobacco Use Types Packs/Day Years Used Date Smoking Tobacco: Never Assessed Sex and Gender Information Value Date Recorded Sex Assigned at Not on file 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
--- OUTSIDE RECORDS SUMMARY | 2024-10-05 12:54 | XMS_ITS | Encounter Summary ---
Author Organization [facility] Address [address] [place] [address] Care Team Providers Care Dry Cell Assembly Machine Tender Name Role Phone Sumi Oliver MD Primary Care Provider Encounter Details Date Type Department Care Team (Latest Contact Info) Description 06/05/2000 Outpatient Historical [facility] Family Medicine [address] [phone] Uri Burleson DO NO ADDRESS ON FILE Dizziness and giddiness (Primary Dx) Social History Tobacco Use Types Packs/Day Years Used Date Smoking Tobacco: Never Assessed Sex and Gender Information Value Date Recorded Sex Assigned at Not on file 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
--- OUTSIDE RECORDS SUMMARY | 2024-10-05 12:54 | XMS_ITS | Encounter Summary ---
Author Organization [facility] Address [address] [facility] [place] [address] Care Team Providers Care Ad Writer Name Role Phone Sumi Oliver MD Primary Care Provider Encounter Details Date Type Department Care Team (Latest Contact Info) Description 06/22/2001 Outpatient Historical [facility] Family Medicine- [address] [place], [place] [address] Uri Bruleson, NO ADDRESS ON FILE HYPERTENSION NOS (Primary Dx); ALLERGY, UNSPECIFIED Social History Tobacco Use Types Packs/Day Years Used Date Smoking Tobacco: Never Assessed Sex and Gender Information Value Date Recorded Sex Assigned at Not on file 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
--- OUTSIDE RECORDS SUMMARY | 2024-10-05 12:54 | XMS_ITS | Encounter Summary ---
Author Organization [facility] Address [address] [facility] [place] [address] Care Team Providers Care Belt Notcher Name Role Phone Sumi Oliver MD Primary Care Provider Encounter Details Date Type Department Care Team (Latest Contact Info) Description 06/01/2006 Outpatient Historical [facility] Family Medicine- [address] [place] [address] Jeanna Agee MD NO ADDRESS ON FILE Unspecified Essential Hypertension (Primary Dx); Unspecified Sleep Apnea Social History Tobacco Use Types Packs/Day Years Used Date Smoking Tobacco: Never Assessed Sex and Gender Information Value Date Recorded Sex Assigned at Not on file 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
--- OUTSIDE RECORDS SUMMARY | 2024-10-05 12:54 | XMS_ITS | Encounter Summary ---
Author Organization [facility] Address [address] [facility] [place] [address] Care Team Providers Care Acute Care Nurse Name Role Phone Sumi Oliver MD Primary Care Provider Encounter Details Date Type Department Care Team (Latest Contact Info) Description 04/24/[address] 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
[2024-10-05 13:54] LABS: Hematocrit 32.7 % (37-53); Hemoglobin 10.40 g/dL (11.27-16.99); Mean Corpuscular HGB Conc 31.8 g/dL (30-55); Mean Corpuscular Hemoglobin 28.6 pg (27-33); Mean Corpuscular Volume 89.8 fl (82-101); Nucleated Red Blood Cells % 0 %; Platelet Count 301 10^3/cmm (157-399); Red Blood Count 3.64 10^6/uL (3.85-5.65); White Blood Count 9.01 10^3/uL (3.29-11.43)
[2024-10-05 14:03] LABS: INR 1.36 (0.8-1.2); Prothrombin Time 17.60 SECONDS (12.1-14.9)
[2024-10-05 14:07] LABS: Troponin(5th) Baseline 10 ng/L (0-15)
[2024-10-05 14:26] LABS: Alanine Aminotransferase 19 U/L (0-41); Albumin Level 3.6 g/dL (3.5-5.2); Alkaline Phosphatase 110 U/L (40-130); Anion Gap 19.7 (5-19); Aspartate Amino Transferase 13 U/L (0-40); Blood Urea Nitrogen 25 mg/dL (8-23); Calcium 8.5 mg/dL (8.5-10.5); Carbon Dioxide 23 mmol/L (22-29); Chloride 99 mmol/L (98-107); Creatinine Clr Calc Pharmacy 71.9447; Globulin 3.2 g/dL (1.3-4.6); Glucose 161 mg/dL (65-115); NT Pro B Type Natriuretic Pept 11065 pg/mL (0-125); Osmolality Calculated 294 mOsm/kg (285-295); Potassium 3.7 mmol/L (3.5-5.1); Sodium 138 mmol/L (136-145); Total Protein 6.8 g/dL (6.6-8.7)
--- NOTE | 2024-10-05 15:01 | ED_ITS ---
HPI - SOB/Dyspnea 2 General: Chief Complaint: Shortness of Breath/Dyspnea Stated Complaint: Hailey Chest feeling heavy SOB O2 Low Time Seen by Provider: 10/05/24 13:35 History of Present Illness: HPI Narrative: 64-year-old male presents emergency room complaining shortness of breath chest pressure. His oxygen sat was reported as low today. He has a history of heart failure history of nonischemic cardiomyopathy and coronary artery disease he does wear a LifeVest has not gone off recently has not had any palpitations. Denies any fever sweats chills he did have a COVID test at his doctor's office today which was negative. Associated symptoms: Deny abdominal pain, chest pain or fever(s) Related Data Home Medications ?Medication ?Instructions ?Recorded ?Confirmed duloxetine 60 mg capsule,delayed 60 mg PO DAILY 10/05/24 release apixaban 5 mg tablet (Eliquis) 5 mg PO BID@0900,2100 0 07/29/24 10/05/24 Held on 08/19/24. Instructions: Resume on 08/20/24. aspirin 81 mg tablet,delayed 81 mg PO DAILY 10/05/24 0 10/05/24 release evolocumab 140 mg/mL subcutaneous 140 mg SUBCUT Q14D 0 10/05/24 10/05/24 pen injector (Emma Fajardo) Previous Rx's ?Medication ?Instructions ?Recorded digoxin 125 mcg (0.125 mg) tablet 125 mcg PO DAILY #90 tabs 07/11/24 clopidogrel 75 mg tablet 75 mg PO DAILY 90 days #90 t abs 08/19/24 losartan 25 mg tablet 25 mg PO DAILY #30 tabs 08/07 05/31 metoprolol tartrate 25 mg tablet 25 mg PO BID@0900,210 0 #180 tabs 08/25/24 potassium chloride 10 mEq 10 meq PO DAILY #90 tabs tablet,extended release (Klor-Con) bumetanide 1 mg tablet See Rx Instructions .Route 0 09/19/24 .COMPLEX #90 tabs amiodarone 200 mg tablet (Pacerone) 200 mg PO DAILY #9 0 tabs 09/29/24 Allergies Allergy/AdvReac Type Severity Reaction Status Date / Time simvastatin Allergy Severe N/V Verified 08/25/24 13:19 Review of Systems 2 Const: Denies: fever(s) or chills Card: Denies: chest pain Resp: Denies: dyspnea GI: Denies: abdominal pain : Denies: dysuria, urinary frequency or urinary urgency Musc: Denies: neck pain or back pain Skin/Breast: Denies: rash PFSH ED 2 PFSH: Medical History Pulmonary hypertension Atrial fibrillation with rapid ventricular response Acute exacerbation of CHF (congestive heart failure) Obstructive sleep apnea SOBOE (shortness of breath on exertion) Postherpetic neuralgia Tobacco use Exercise intolerance Allergic rhinitis Shingles Hypertension Paroxysmal atrial fibrillation Labile blood pressure Dyspnea Hyperlipidemia GIA on CPAP Dizziness Chest discomfort Surgical History No history of previous surgery Family History Father CAD (coronary artery disease) Stroke, Onset Age: 35 Grandmother Cancer Mother Stroke Sister Stroke Denies family history of Diabetes Clotting disorder Dementia Chronic kidney disease (CKD) Suicide Anesthesia complication Bleeding disorder Lung disease Social History Smoking and tobacco/nicotine status: light tobacco/nicotine user smokeless tobacco Alcohol intake: current Alcohol intake frequency: few times a month Substance/Drug Use: never Physical Exam 2 Const: COMMON NORMALS: no acute distress GENERAL APPEARANCE: cooperative and comfortable ORIENTATION/CONSCIOUSNESS: Yes awake, Yes oriented to person, Yes oriented to place and Yes oriented to time HENMT: COMMON NORMALS: normocephalic, atraumatic and hearing grossly normal bilaterally HEAD & SCALP: normocephalic and atraumatic Resp: COMMON NORMALS: normal respiratory effort, No retractions, No use of accessory muscles and clear to auscultation bilaterally AUSCULTATION: clear to auscultation bilaterally Cardio: COMMON NORMALS: regular rate, regular rhythm and No murmurs present (Cardio) RATE: regular rate RHYTHM: regular rhythm GI: COMMON NORMALS: Soft to palpation and No hepatosplenomegaly present A USCULTATION: Yes normoactive bowel sounds PALPATION: Yes Soft to palpation, No Tenderness to palpation present (GI), No Guarding due to palpation present (GI) and Yes No hepatosplenomegaly present Extremity: COMMON NORMALS: normal to inspection, capillary refill normal, no clubbing, cyanosis or edema, no calf tenderness and no pedal edema Neuro: SENSORIUM/ORIENTATION: Yes oriented to person, Yes oriented to place and Yes oriented to time Skin: COMMON NORMALS: no rashes or lesions noted GENERAL SKIN EXAM: no rashes or lesions noted Course 2 Vital Signs: Vital signs: Vital Signs Pulse Rate 81 10/05/24 17:10 Respiratory Rate 15 10/05/24 14:59 Blood Pressure 134/92 10/05/24 17:10 Pulse Oximetry 93 10/05/24 17:25 Oxygen Delivery Me thod Nasal Cannula 10/05/24 17:25 Oxygen Flow Rate 2 10/05/24 17:25 MDM - SOB/Dyspnea Medical Decision Making Patient acute decompensated congestive heart failure with a history of cardiomyopathy. Discussed with internal grinder tender and with hospitalist. Hospitalist SOB of 2 mg IV Bumex. Will admit for decompensated congestive heart failure. Medical Records I reviewed the patient's medical records. Lab Data I reviewed the patient's lab results. 10/05/24 13:25 10/05/24 13:25 Labs/Radiology: Radiology Impressions Chest X-Ray 10/05/24 12:50 Impression: 1. The bilateral alveolar opacities have diminished significantly. 2. The remainder of the chest shows no change. Laboratory Results WBC 9.01 10^3/uL (3.29-11.43) 10/05/24 13:25 RBC 3.64 10^6/uL (3.85-5.65) L 10/05/24 13:25 Hgb 10.40 g/dL (11.27-16.99) L 10/05/24 13:25 Hct 32.7 % (37-53) L 10/05/24 13:25 MCV 89.8 fl (82-101) 10/05/24 13:25 MCH 28.6 pg (27-33) 10/05/24 13:25 MCHC 31.8 g/dL (30-55) 10/05/24 13:25 RDW 15.3 % (12.1-15.1) H 10/05/24 13:25 Plt Count 301 10^3/cmm (157-399) 10/05/24 13:25 MPV 10.1 fL (7.4-10.4) 10/05/24 13:25 Neut % (Auto) 86.0 % 10/05/24 13:25 Lymph % (Auto) 7.8 % 10/05/24 13:25 [place] % (Auto) 3.8 % 10/05/24 13:25 Eos % (Auto) 0.2 % 10/05/24 13:25 Baso % (Auto) 0.4 % 10/05/24 13:25 Neut # (Auto) 7.75 10^3/uL (1.8-7.7) H 10/05/24 13:25 Lymph # (Auto) 0.7 10^3/uL (0.8-4.8) L 10/05/24 13:25 [place] # (Auto) 0.3 10^3/uL (0.2-0.9) 10/05/24 13:25 Eos # (Auto) 0.0 10^3/uL (0.0-0.8) 10/05/24 13:25 Baso # (Auto) 0.0 10^3/uL (0.0-0.1) 10/05/24 13:25 Nucleated RBC % (auto) 0 % 10/05/24 13:25 Nucleated RBCs # 0.0 /100WBC 10/05/24 13:25 PT 17.60 SECONDS (12.1-14.9) H 10/05/24 13:25 INR 1.36 (0.8-1.2) H 10/05/24 13:25 Sodium 138 mmol/L (136-145) 10/05/24 13:25 Potassium 3.7 mmol/L (3.5-5.1) 10/05/24 13:25 Chloride 99 mmol/L (98-107) 10/05/24 13:25 Carbon Dioxide 23 mmol/L (22-29) 10/05/24 13:25 Anion Gap 19.7 (5-19) H 10/05/24 13:25 BUN 25 mg/dL (8-23) H 10/05/24 13:25 Creatinine 1.3 mg/dL (0.7-1.2) H 10/05/24 13:25 GFR Calculation 55.8 mL/min (90-130) L 10/05/24 13:25 Glucose 161 mg/dL (65-115) H 10/05/24 13:25 Calculated Osmolality 294 mOsm/kg (285-295) 10/05/24 13:25 Calcium 8.5 mg/dL (8.5-10.5) 10/05/24 13:25 Total Bilirubin 2.1 mg/dL (0.15-1.2) H 10/05/24 13:25 AST 13 U/L (0-40) 10/05/24 13:25 ALT 19 U/L (0-41) 10/05/24 13:25 Alkaline Phosphatase 110 U/L (40-130) 10/05/24 13:25 Troponin T Baseline 10 ng/L (0-15) 10/05/24 13:25 Troponin T 120 Minute 9.98 ng/L (0-15) 10/05/24 14:48 Delta Troponin T -0.02 ABS# (0-10) L 10/05/24 14:48 NT-Pro-B Natriuret Pep 66282 pg/mL (0-125) H 10/05/24 13:25 Total Protein 6.8 g/dL (6.6-8.7) 10/05/24 13:25 Albumin 3.6 g/dL (3.5-5.2) 10/05/24 13:25 Globulin 3.2 g/dL (1.3-4.6) 10/05/24 13:25 Digoxin 0.8 ng/mL (0.6-1.2) 10/05/24 14:48 All radiology interpretation(s) finalized by discharge Discharge Plan Discharge Patient Disposition: Admitted As Inpatient Admit Provider: Stanley Singleton Clinical Impression: Systolic CHF with reduced left ventricular function, NYHA class 2, Non-ischemic cardiomyopathy, Acute exacerbation of CHF (congestive heart failure), Hypoxia, Shortness of breath Condition: Stable Coding Level of Care Code ED Condenser Winder for [place]
--- NOTE | 2024-10-05 15:09 | ECG_ITS ---
[facility] Test Date: 2024-10-05 Pat Name: Colin Moya Department: Room: Gender: Male Director Of Slot Operations: : 1960 Requested By: Anita Sena Order Number: [id number] Oscar MD: Edinson Resendiz M.D. Measurements Intervals [place] Rate: 103 P: 0 RI: 0 QRS: 69 QRSD: 138 T: 267 QT: 404 QTc: 531 Interpretive Statements ATRIAL FIBRILLATION WITH RAPID VENTRICULAR RESPONSE INTRAVENTRICULAR CONDUCTION DELAY [130+ ms QRS DURATION] SEPTAL MYOCARDIAL INFARCTION , OF INDETERMINATE AGE [40+ ms Q WAVE IN V1/V2] Compared to ECG 10/05/2024 12:57:17 No significant changes Electronically Signed On 10-06-2024 10:29:24 CDT by Edinson Resendiz M.D. [email or web address]
[2024-10-05 15:18] LABS: Troponin 5 2HR 9.98 ng/L (0-15)
[2024-10-05 15:19] LABS: Troponin 5 2HR Delta -0.02 ABS# (0-10)
--- NOTE | 2024-10-05 15:36 | PM.HP ---
Providers/Chief Complaint Admitting Physician: Dr. Singleton Primary Care Provider: Francis Elmore Chief Complaint: Dr Hart Chest feeling heavy SOB O2 Low History of Present Illness Colin Moya is a 64 year old male presenting with SOB started Thursday and worsening over the last several days. PMHx is significant for severe ischemic cardiomyopathy with recent RHC and PCI and stent placement in August of this year. He states he is consistent with ASA/plavix since then. He was also discharged on a life vest and is being considered for a cardiac defibrillator around 3 months post PCI. Per report, his diuretics were recently reduced 2/2 elevated creatinine and this has recently improved. However he is now experiencing increased symptoms, this is despite a CXR that demonstrates improvement in aveolar opacities. He was having some chest pain at rest yesterday and is now experiencing pressure. Troponins are negative on this admission and were elevated from one month ago. His BNP is very elevated on this admission. He does not use oxygen at home, and he was satting at 84% in the PCP office and sent to ER for further evaluation., currently on 3L per NC. Admitted for further evaluation/treatment. Review of Systems Const: Denies: fever(s), chills or body aches Eyes: Denies: change in vision ENMT: Denies: mouth pain or dental pain Card: Reports: chest pain Resp: Reports: dyspnea GI: Denies: abdominal pain, nausea or vomiting : Denies: difficulty urinating, dysuria, urinary frequency or urinary urgency Musc: Denies: neck pain or back pain Skin/Breast: Denies: rash or pruritus Neuro: Denies: headache(s) Psych: Denies: anxiety or depression Medications/Allergies Home Medications ?Medication ?Instructions ?Recorded ?Confirmed ?Last Taken ?Type duloxetine 60 mg capsule,delayed 60 mg PO DAILY 12/25/21 10/05/24 10/05/24 History release digoxin 125 mcg (0.125 mg) tablet 125 mcg PO DAILY #90 tabs 07/11/24 10/05/24 09/28/24 Rx apixaban 5 mg tablet (Eliquis) 5 mg PO BID@0900,2100 07/29/24 10/05/24 10/05/24 08:00 History Held on 08/19/24. Instructions: Resume on 08/20/24. clopidogrel 75 mg tablet 75 mg PO DAILY 90 days #90 tabs 08/19/24 10/05/24 10/05/24 Rx losartan 25 mg tablet 25 mg PO DAILY #30 tabs 08/19/24 10/05/24 10/05/24 Rx metoprolol tartrate 25 mg tablet 25 mg PO BID@0900,2100 #180 tabs 08/25/24 10/05/24 10/05/24 09:00 Rx potassium chloride 10 mEq 10 meq PO DAILY #90 tabs 08/25/24 10/05/24 10/05/24 Rx tablet,extended release (Klor-Con) bumetanide 1 mg tablet See Rx Instructions .Route 09/19/24 10/05/24 10/05/24 07:00 Rx .COMPLEX #90 tabs amiodarone 200 mg tablet (Pacerone) 200 mg PO DAILY #90 tabs 09/29/24 10/05/24 10/05/24 Rx aspirin 81 mg tablet,delayed 81 mg PO DAILY 10/05/24 10/05/24 10/05/24 History release evolocumab 140 mg/mL subcutaneous 140 mg SUBCUT Q14D 10/05/24 10/05/24 09/23/24 History pen injector (Repatha SureClick) Allergies Allergy/AdvReac Type Severity Reaction Status Date / Time simvastatin Allergy Severe N/V Verified 08/25/24 13:19 PFSH Acute PFSH: Medical History Atrial fibrillation with rapid ventricular response Pneumonia Bilateral pleural effusion Acute exacerbation of CHF (congestive heart failure) Obstructive sleep apnea SOBOE (shortness of breath on exertion) Postherpetic neuralgia Tobacco use Exercise intolerance Allergic rhinitis Shingles Hypertension Paroxysmal atrial fibrillation Labile blood pressure Dyspnea Hyperlipidemia GIA on CPAP Dizziness Chest discomfort Surgical History No history of previous surgery Family History Father CAD (coronary artery disease) Stroke, Onset Age: 35 Grandmother Cancer Mother Stroke Sister Stroke Denies family history of Diabetes Clotting disorder Dementia Chronic kidney disease (CKD) Suicide Anesthesia complication Bleeding disorder Lung disease Social History Smoking and tobacco/nicotine status: light tobacco/nicotine user smokeless tobacco Alcohol intake: current Alcohol intake frequency: few times a month Substance/Drug Use: never Vitals/I&O/Wt Last Vital Signs Pulse 86 10/05/24 15:16 Resp 15 10/05/24 14:59 BP 134/92 10/05/24 15:16 Pulse Ox 96 10/05/24 15:16 O2 Del Method Nasal Cannula 10/05/24 14:59 O2 Flow Rate 3 10/05/24 14:59 Weight last 48 hrs Weight 105.687 kg Physical Exam Const: COMMON NORMALS: no acute distress, average body habitus, patient oriented x3 and no limitations HENMT: COMMON NORMALS: normocephalic and atraumatic Eye: COMMON NORMALS: Equal, round and reactive pupils present and EOMs intact bilaterally Neck/C-Spine: COMMON NORMALS: full ROM and no lymphadenopathy Chest: OTHER: life vest on. Resp: OTHER: diminished in bases, no rales or wheezing Cardio: COMMON NORMALS: regular rate RHYTHM: abnormal rhythm GI: COMMON NORMALS: Soft to palpation, non-tender and no masses Extremity: COMMON NORMALS: full ROM and no pedal edema Neuro: COMMON NORMALS: patient oriented x3 and CN's II-XII intact bilaterally Psych: COMMON NORMALS: mental status grossly normal, normal affect and speech normal Skin: COMMON NORMALS: no rashes or lesions noted and no wounds Data 10/05/24 13:25 10/05/24 13:25 A&P Assessment and plan 1. Atherosclerotic heart disease of [place] coronary artery with other forms of angina pectoris: 2. Pulmonary hypertension: 3. Acute exacerbation of CHF (congestive heart failure): Plan: 64 year old male presenting with worsening SOB. Acute exacerbation of HFrEF - most recent EF 20% - BNP severely elevated - has life vest, considering defibrillator in 3 months post PCI - cardiology consulted - hold oral diuretics - received bumex x1 in ER - cont. lasix 40 mg IV BID for now. CVD with stent - PCI 08/18/24 - cont. DAPT: ASA/plavix, he states he's been consistent since PCI Mild KERON on CKD IIIa - KERON may be limiting factor in diuresis Afib - not in RVR currently - cont. amiodarone - cont. eliquis - cont. digoxin, level ordered - cont. lopressor Anxiety/depression - cont. duloxetine Hyperlipidemia - on repatha subq GIA - CPAP, can bring in his own Pulmonary hypertension - diuresis as above PPx: eliquis Diet: HH Disposition - pending improvement in SOB, cardiology consulted from ER. PDMP PDMP Reviewed: Not Reviewed Attestations Medical Necessity Statement*: Anticipate inpatient admission > 2 midnights for HFrEF in exacerbation. Time Spent in Patient Care: 16 - 35 minutes Coding Level of Care Code Acute Code for Chg Fwd Diagnoses Atherosclerotic heart disease of [place] coronary artery with other forms of angina pectoris I25.118 Pulmonary hypertension I27.20 Acute exacerbation of CHF (congestive heart failure) I50.9
[2024-10-05 15:44] LABS: Digoxin 0.8 ng/mL (0.6-1.2)
[2024-10-05] MEDS: bumetanide 0.25 mg/mL SDV 4 mL 1 MG IVP (15:44)
--- NOTE | 2024-10-05 17:13 | P.CONIM_ITS ---
<Statement entered by Avery Denney MD - 10/05/24 19:26> Patient was evaluated and cared for in conjunction with an advanced practice practitioner. I personally examined the patient and reviewed the chart and all pertinent data including imaging, telemetry, and laboratory results. I discussed the patient in detail with the advanced practice practitioner. Please see their note for complete consult note, testing results and agreed upon plan of care for the patient. GENERAL: Patient is alert, awake and oriented x3. NECK: No JVD or carotid bruit HEART: irreg irreg LUNGS: Clear to auscultation bilaterally. EXTREMITIES: Lower extremities with out edema bilaterally. Providers/Reason For Consult 2 Consulting Physician/Specialty*: Dr Denney, cardiology Reason for Consult*: Chest pain, shortness of breath, transient hypoxia Requesting Physician: Dr. Mathias Attending Physician: Stanley Singleton MD Primary Care Provider: Francis Elmore History of Present Illness History of Present Illness Colin Moya is a 64 year old male with past medical history of CAD (status post stent to the OM1, LAD, balloon angioplasty to the diagonal on 08/18/2024), systolic CHF (previously 30 to 35% in 2022, down to 20% 07/07/2024), CKD (baseline creatinine 1.3-1.6) uses chewing tobacco, hypertension, hyperlipidemia, atrial fibrillation anticoagulated with apixaban and rate controlled with amiodarone. He presented to the emergency room today after experiencing intermittent heaviness in the chest all day yesterday, with worsening shortness of breath. He was at a outpatient clinic visit and noticed oxygen saturation in the 80s, they recommended he go to the emergency room in [place], however since he received his care here he decided to come to our emergency room. His weight at home this morning was 224 pounds, has not increased since I saw him last month. We were attempting to reduce Bumex dose to 2 mg daily to reduce impact on renal function. Chest x-ray obtained today actually looks better than previous. BMP 11,000 today, previously 2664 on 09/15. He has not noticed any increase in heart rate, remains in atrial fibrillation. Blood pressure has been in a normal range. He is wearing his LifeVest, has not had any shocks. He has not had any chest pain today, shortness of breath is improved after 2 mg Bumex dose. No lower extremity edema in the last few days or present now. EKG today shows atrial fibrillation, ventricular rate 92 bpm, IVCD with QRS duration 134. No acute ST or T wave changes. Troponin series: 10-> 9. He notes he saw the spindle repairer Dr. Pinto in [place] recently, plan was for follow-up in November to determine if ICD/MONOMER RECOVERY OPERATOR-D was needed, also discussed possible ablation for atrial fibrillation. Medications/Allergies Home Medications ?Medication ?Instructions ?Recorded ?Confirmed ?Last Taken ?Type duloxetine 60 mg capsule,delayed 60 mg PO DAILY 10/05/24 10/05/24 History release digoxin 125 mcg (0.125 mg) tablet 125 mcg PO DAILY #90 tabs 07/11/24 10/05/24 09/28/24 Rx apixaban 5 mg tablet (Eliquis) 5 mg PO BID@0900,2100 0 07/29/24 10/05/24 10/05/24 08:00 History Held on 08/19/24. Instructions: Resume on 08/20/24. clopidogrel 75 mg tablet 75 mg PO DAILY 90 days #90 t abs 08/19/24 10/05/24 10/05/24 Rx losartan 25 mg tablet 25 mg PO DAILY #30 tabs 08/0710/05/24 10/05/24 Rx metoprolol tartrate 25 mg tablet 25 mg PO BID@0900,210 0 #180 tabs 08/25/24 10/05/24 10/05/24 09:00 Rx potassium chloride 10 mEq 10 meq PO DAILY #90 tabs 10/05/24 10/05/24 Rx tablet,extended release (Klor-Con) bumetanide 1 mg tablet See Rx Instructions .Route 0 09/19/24 10/05/24 10/05/24 07:00 Rx .COMPLEX #90 tabs amiodarone 200 mg tablet (Pacerone) 200 mg PO DAILY #9 0 tabs 09/29/24 10/05/24 10/05/24 Rx aspirin 81 mg tablet,delayed 81 mg PO DAILY 10/05/24 0 10/05/24 10/05/24 History release evolocumab 140 mg/mL subcutaneous 140 mg SUBCUT Q14D 0 10/05/24 10/05/24 09/23/24 History pen injector (Repatha SureClick) Allergies Allergy/AdvReac Type Severity Reaction Status Date / Time simvastatin Allergy Severe N/V Verified 08/25/24 13:19 PFSH Acute 2 PFSH: Medical History (Updated 10/05/24 @ 15:49 by Stanley Singleton MD) Pulmonary hypertension Atrial fibrillation with rapid ventricular response Acute exacerbation of CHF (congestive heart failure) Obstructive sleep apnea SOBOE (shortness of breath on exertion) Postherpetic neuralgia Tobacco use Exercise intolerance Allergic rhinitis Shingles Hypertension Paroxysmal atrial fibrillation Labile blood pressure Dyspnea Hyperlipidemia GIA on CPAP Dizziness Chest discomfort Surgical History No history of previous surgery Family History Father CAD (coronary artery disease) Stroke, Onset Age: 35 Grandmother Cancer Mother Stroke Sister Stroke Denies family history of Diabetes Clotting disorder Dementia Chronic kidney disease (CKD) Suicide Anesthesia complication Bleeding disorder Lung disease Social History Smoking and tobacco/nicotine status: light tobacco/nicotine user smokeless tobacco Alcohol intake: current Alcohol intake frequency: few times a month Substance/Drug Use: never Vitals/I&O/Wt Last Vital Signs Pulse 81 10/05/24 17:10 Resp 15 10/05/24 14:59 BP 134/92 10/05/24 17:10 Pulse Ox 96 10/05/24 17:10 O2 Del Method Nasal Cannula 10/05/24 14:59 O2 Flow Rate 3 10/05/24 14:59 Weight last 48 hrs Weight 233 lb Physical Exam 2 Const: COMMON NORMALS: no acute distress and patient oriented x3 Chest: COMMONS NORMALS: normal inspection of the chest and normal palpation of entire chest wall CHEST: Yes Symmetrical chest wall rise Resp: COMMON NORMALS: normal respiratory effort, No retractions, No use of accessory muscles and clear to auscultation bilaterally EFFORT & INSPECTION: Yes symmetric chest movement AUSCULTATION: clear to auscultation bilaterally Cardio: COMMON NORMALS: S1 normal heart sound present, S2 normal heart sound present, No gallops present (Cardio), No clicks present (Cardio), No murmurs present (Cardio) and No rub (Cardio) RHYTHM: abnormal rhythm irregularly irregular HEART SOUNDS: S1 normal heart sound present and S2 normal heart sound present PERIPHERAL PULSES: radial pulses present, posterior tibial pulses present and dorsalis pedis present Neuro: COMMON NORMALS: patient oriented x3 and moves all extremities Psych: COMMON NORMALS: mental status grossly normal and cooperative Data 10/05/24 13:25 10/05/24 13:25 A&P Assessment and plan 1. Paroxysmal atrial fibrillation: 2. Systolic CHF with reduced left ventricular function, NYHA class 2: 3. Benign essential HTN: 4. Atherosclerotic heart disease of [place] coronary artery with other forms of angina pectoris: 5. Shortness of breath: Plan: He may have had some acute fluid retention which was resolved with the Bumex however the overall picture does not favor CHF decompensation. Clinically he appears euvolemic at the time of this exam. Given the recent stenting 1 month ago, the chest pain which occurred yesterday needs further evaluation. Will start him on Nitropaste this evening, add heparin infusion, hold Eliquis, continue metoprolol 25 mg twice daily and amiodarone 200 mg daily. Dig level is 0.8, continue digoxin. Will plan for coronary angiogram in the next 1 to 2 days. He feels he can lie flat for the study at this time. PDMP PDMP Reviewed: Not Reviewed Coding Level of Care Code Acute Code for Chg Fwd Diagnoses Paroxysmal atrial fibrillation I48.0 Systolic CHF with reduced left ventricular function, NYHA class 2 I50.20 Benign essential HTN I10 Atherosclerotic heart disease of [place] coronary artery with other forms of angina pectoris I25.118 Shortness of breath R06.02
[2024-10-05 17:54] LABS: Platelet Count 275 10^3/cmm (157-399)
[2024-10-05] MEDS: heparin drip 25,000 UNIT/500 ML PREMIX 61.3 UNIT IV (17:58)
[2024-10-05] MEDS: heparin 5,000 unit/mL INJ 1 mL IVP (17:59)
[2024-10-05] MEDS: FUROsemide 10 mg/mL SDV 4mL 40 MG IVP (17:59)
--- NOTE | 2024-10-05 18:35 | PC.NURSE ---
nitrobid not placed on patient due to a blood pressure of 103/71 and patient was reporting no chest pain at that time. Heparin gtt running at 29ml with 5300 bolus given. Next ptt set for midnight.
[2024-10-05 22:37] LABS: Troponin 5 6HR 10.84 ng/L (0-15); Troponin 5 6HR Delta 0.84 ng/L (0-12)
[2024-10-06] VITALS (16 sets, daily range): BP systolic 103–136; BP diastolic 62–94; PULSE 81–115; RESP 10–32; TEMP 36.6–37.3; O2SAT 90–96
[2024-10-06 00:39] LABS: Hematocrit 29.1 % (37-53); Hemoglobin 9.30 g/dL (11.27-16.99); Mean Corpuscular HGB Conc 32.0 g/dL (30-55); Mean Corpuscular Hemoglobin 28.6 pg (27-33); Mean Corpuscular Volume 89.5 fl (82-101); Nucleated Red Blood Cells % 0 %; Platelet Count 282 10^3/cmm (157-399); Red Blood Count 3.25 10^6/uL (3.85-5.65); White Blood Count 6.54 10^3/uL (3.29-11.43)
[2024-10-06 00:54] LABS: Partial Thromboplastin Time 52.8 SECONDS (23.9-36.7)
[2024-10-06 00:58] LABS: Anion Gap 15.2 (5-19); Blood Urea Nitrogen 24 mg/dL (8-23); Calcium 8.3 mg/dL (8.5-10.5); Carbon Dioxide 24 mmol/L (22-29); Chloride 101 mmol/L (98-107); Creatinine Clr Calc Pharmacy 83.3167; Glucose 130 mg/dL (65-115); Magnesium 2.6 mg/dL (1.7-2.3); Osmolality Calculated 290 mOsm/kg (285-295); Potassium 3.2 mmol/L (3.5-5.1); Sodium 137 mmol/L (136-145)
[2024-10-06] MEDS: heparin 5,000 unit/mL INJ 1 mL IVP ×2 (01:12→21:32)
--- NOTE | 2024-10-06 02:37 | ECG_ITS ---
[facility] Test Date: 2024-10-06 Pat Name: Colin Moya Department: Room: 106 Gender: Male Correspondence Specialist: : 1960 Requested By: Stanley Singleton Order Number: [id number] Moore MD: Edinson Resendiz M.D. Measurements Intervals [place] Rate: 84 P: 0 TN: 0 QRS: -63 QRSD: 169 T: 103 QT: 478 QTc: 565 Interpretive Statements ATRIAL FIBRILLATION LEFT AXIS DEVIATION [QRS AXIS < -30] LEFT BUNDLE BRANCH BLOCK [120+ ms QRS DURATION, 80+ ms Q/S IN V1/V2, 85+ ms R IN I/aVL/V5/V6] Compared to ECG 10/05/2024 15:09:46 Left-axis deviation now present Left bundle-branch block now present Intraventricular conduction delay no longer present Myocardial infarct finding no longer present Electronically Signed On 10-06-2024 10:20:48 CDT by Edinson Resendiz M.D. [id number]
[2024-10-06] MEDS: nitroglycerin 1 gm/inch oint Pkt 0.5 INCH TOPICAL ×2 (02:41→07:00)
--- NOTE | 2024-10-06 05:56 | PC.NURSE ---
Patient had run of chest discomfort, stating that he couldn't get enough breath in causing him to have chest pressure. Dr Ash notified, no new orders. Nitro paste applied and EKG was obtained. Respiratory added o2 to cpap and adjusted rate. Patient stated that it helped and he felt much better.
[2024-10-06 07:17] LABS: Partial Thromboplastin Time 47.1 SECONDS (23.9-36.7)
[2024-10-06] MEDS: heparin drip 25,000 UNIT/500 ML PREMIX 65.53 UNIT IV (08:38)
--- NOTE | 2024-10-06 08:45 | P.PN_ITS ---
<Statement entered by Avery Denney MD - 10/06/24 16:44> Patient was evaluated and cared for in conjunction with an advanced practice practitioner. I personally saw the patient and reviewed the chart and all pertinent data. I discussed the patient in detail with the advanced practice practitioner. Please see their note for complete assessment and agreed upon plan of care for the patient. Will advance Bumex to 1mg IV tid today Subjective 2 Subjective: He developed some orthopnea and dyspnea overnight, will start Bumex and potassium replacement. Will start with 1 mg daily and uptitrate if inadequate response. Vitals/I&O/Wt Last Vital Signs Temp 97.8 F 10/06/24 12:00 Pulse 96 10/06/24 13:14 Resp 32 H 10/06/24 12:00 BP 119/80 10/06/24 13:14 Pulse Ox 93 10/06/24 12:00 O2 Del Method Nasal Cannula 10/06/24 12:00 O2 Flow Rate 5 10/06/24 12:00 FiO2 21 10/05/24 20:52 10/05/24 10/06/24 10/06/24 22:59 06:59 14:59 Intake Total 200 / 700.000 500.000 / 700.000 480 / 480 Output Total 400 / 1200 800 / 1200 600 / 600 Balance -200 / -500.000 -300.000 / -500.000 -120 / -120 Weight last 48 hrs Weight 222 lb 14.4 oz Weight 223 lb 5 oz Weight 233 lb Physical Exam 2 Const: COMMON NORMALS: no acute distress and patient oriented x3 GENERAL APPEARANCE: cooperative and comfortable ORIENTATION/CONSCIOUSNESS: Yes awake, Yes oriented to person, Yes oriented to place and Yes oriented to time Chest: COMMONS NORMALS: normal inspection of the chest and normal palpation of entire chest wall CHEST: Yes Symmetrical chest wall rise Resp: COMMON NORMALS: normal respiratory effort, No retractions, No use of accessory muscles and clear to auscultation bilaterally EFFORT & INSPECTION: Yes symmetric chest movement, Yes tachypneic and Yes labored AUSCULTATION: c lear to auscultation bilaterally and diminished lung sounds bilateral in the lower lung cotton Cardio: COMMON NORMALS: S1 normal heart sound present, S2 normal heart sound present, No gallops present (Cardio), No clicks present (Cardio), No murmurs present (Cardio) and No rub (Cardio) RATE: tachycardic RHYTHM: abnormal rhythm irregularly irregular HEART SOUNDS: S1 normal heart sound present and S2 normal heart sound present PERIPHERAL PULSES: radial pulses present Extremity: COMMON NORMALS: no pedal edema Neuro: COMMON NORMALS: patient oriented x3 and moves all extremities S ENSORIUM/ORIENTATION: Yes oriented to person, Yes oriented to place and Yes oriented to time Data 10/06/24 00:33 10/06/24 00:33 A&P Assessment and plan 1. Paroxysmal atrial fibrillation: 2. Systolic CHF with reduced left ventricular function, NYHA class 2: 3. Acute exacerbation of CHF (congestive heart failure): 4. Benign essential HTN: 5. Atherosclerotic heart disease of [place] coronary artery with other forms of angina pectoris: 6. Pulmonary hypertension: 7. Shortness of breath: Plan: He is showing signs of volume overload this morning, will start diuresing with Bumex. He is having some chest discomfort with the volume overload. When he is able to lay down, we will coordinate coronary angiogram to evaluate further. He was started on heparin infusion last night, hemoglobin 9.3 this morning. Will recheck later this afternoon. PDMP PDMP Reviewed: Not Reviewed Attestations 2 Medical Necessity Statement*: Diuresis, systolic CHF, CAD ischemic workup Coding Level of Care Code Acute Code for [facility] Fwd Diagnoses Paroxysmal atrial fibrillation I48.0 Systolic CHF with reduced left ventricular function, NYHA class 2 I50.20 Acute exacerbation of CHF (congestive heart failure) I50.9 Benign essential HTN I10 Atherosclerotic heart disease of [place] coronary artery with other forms of angina pectoris I25.118 Pulmonary hypertension I27.20 Shortness of breath R06.02
--- NOTE | 2024-10-06 09:38 | PC.CHAP ---
Pastoral Care Encounter/Spiritual Assessment Type of Contact [] Declined sign letterer visit [] Patient/Family/Request visit [] Outpatient visit [] Follow-up visit [] Physician referral [] Code/Alert [x] Routine visit [] Staff referral [] Actively dying [] Patient sleeping [] Family support [] [] Out of room [] Palliative care [] [] Receiving care in room [] Pre-surgical visit [] Trauma [] Long length of stay [] ICU visit [] Other: Relational/Emotional Strength [x] Patient feels connected with others/family/visitors/staff [] Distress [] Loneliness/isolation [] Abandonment Spirituality of Patient [x] Person of Mayuri [] Attends Hindu of their Mayuri [x] Believes in Prayer [] Reads Bible or Zoroastrian materials [] There are Spiritual issues to be addressed 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 Interventions [x] Prayer [x] Active listening [] Non-anxious presence [x] Spiritual/emotional support [] Crisis/trauma care [] Spiritual counseling [] Bereavement support [] Provided bereavement packet [] Provided Bible/devotional materials [] Provided toy/stuffed animal, coloring book to patient or family member [] Provided Communion [] Anointing/[place] [] Salvation [x] Completed spiritual assessment [] Other: Impact on Illness or Injury [] Angry [] Fearful [] Anxious [] Often cries [] Exhaustion [] Unable to work [] Unable to attend samaritan [] Unable to walk/stand [] Unable to read [] Unable to drive [] Unable to eat/drink [] Unable to sleep [] Unable to be with family [] Patient intubated [] Other: Summary Time spent with patient 5 min
--- NOTE | 2024-10-06 11:44 | PM.PN ---
Subjective Subjective: Pain with deep breathing around sternum. Vitals/I&O/Wt Last Vital Signs Temp 99.2 F 10/06/24 08:00 Pulse 98 10/06/24 08:32 Resp 28 H 10/06/24 08:00 BP 128/89 10/06/24 08:31 Pulse Ox 90 10/06/24 08:00 O2 Del Method Nasal Cannula 10/06/24 08:00 O2 Flow Rate 5 10/06/24 08:00 FiO2 21 10/05/24 20:52 10/05/24 10/06/24 10/06/24 22:59 06:59 14:59 Intake Total 200 / 200 500.000 / 700.000 Output Total 400 / 400 800 / 1200 300 / 300 Balance -200 / -200 -300.000 / -500.000 -300 / -300 Weight last 48 hrs Weight 101.106 kg Weight 101.293 kg Weight 105.687 kg Physical Exam Const: COMMON NORMALS: no acute distress and patient oriented x3 Chest: COMMONS NORMALS: normal inspection of the chest and normal palpation of entire chest wall (without tenderness) CHEST: Yes Symmetrical chest wall rise Resp: COMMON NORMALS: normal respiratory effort, No retractions, No use of accessory muscles and clear to auscultation bilaterally EFFORT & INSPECTION: Yes symmetric chest movement AUSCULTATION: clear to auscultation bilaterally Cardio: COMMON NORMALS: S1 normal heart sound present, S2 normal heart sound present, No gallops present (Cardio), No clicks present (Cardio), No murmurs present (Cardio) and No rub (Cardio) RHYTHM: abnormal rhythm irregularly irregular HEART SOUNDS: S1 normal heart sound present and S2 normal heart sound present PERIPHERAL PULSES: radial pulses present, posterior tibial pulses present and dorsalis pedis present Neuro: COMMON NORMALS: patient oriented x3 and moves all extremities Psych: COMMON NORMALS: mental status grossly normal and cooperative Data 10/06/24 00:33 10/06/24 00:33 A&P Assessment and plan 1. Atherosclerotic heart disease of [place] coronary artery with other forms of angina pectoris: 2. Shortness of breath: 3. Systolic CHF with reduced left ventricular function, NYHA class 2: Plan: 64 year old male presenting with worsening SOB. HFrEF - most recent EF 20% - BNP severely elevated - has life vest, considering defibrillator in 3 months post PCI - cardiology consulted - hold oral diuretics - received bumex x1 in ER - cont. lasix 40 mg IV BID for now. - nitropaste - heparin infusion - cardiology considering coronary angiogram in next 1 - 2 days. CVD with stent - PCI 08/18/24 - cont. DAPT: ASA/plavix, he states he's been consistent since PCI Mild KERON on CKD IIIa - KERON may be limiting factor in diuresis Afib - not in RVR currently - cont. amiodarone - eliquis held - cont. digoxin, level 0.8 - cont. lopressor Anxiety/depression - cont. duloxetine Hyperlipidemia - on repatha subq GIA - CPAP continued here - O2 added overnight (does not use O2 at home) Pulmonary hypertension - diuresis as above Hypokalemia - 40 meq given this AM. PPx: eliquis held Diet: HH Disposition - cardiology considering coronary angiogram in next 1 - 2 days PDMP PDMP Reviewed: Not Reviewed Attestations Medical Necessity Statement*: Anticipate > 2 midnights inpatient admission for ongoing chest pain, stent 1 month ago. Time Spent in Patient Care: 16 - 35 minutes Coding Level of Care Code Acute Code for [facility] Fwd Diagnoses Atherosclerotic heart disease of [place] coronary artery with other forms of angina pectoris I25.118 Shortness of breath R06.02 Systolic CHF with reduced left ventricular function, NYHA class 2 I50.20
[2024-10-06] MEDS: bumetanide 0.25 mg/mL SDV 4 mL 1 MG IVP ×2 (13:11→16:12)
--- NOTE | 2024-10-06 13:52 | PC.NURSE ---
during administration of medication provider at bedside notified of low bp and holding of nitro at that time patient denies chest pain
[2024-10-06 15:06] LABS: Hematocrit 32.8 % (37-53); Hemoglobin 10.40 g/dL (11.27-16.99); Mean Corpuscular HGB Conc 31.7 g/dL (30-55); Mean Corpuscular Hemoglobin 28.9 pg (27-33); Mean Corpuscular Volume 91.1 fl (82-101); Nucleated Red Blood Cells % 0 %; Platelet Count 326 10^3/cmm (157-399); Red Blood Count 3.60 10^6/uL (3.85-5.65); White Blood Count 9.95 10^3/uL (3.29-11.43)
[2024-10-06 19:55] LABS: Partial Thromboplastin Time 40.9 SECONDS (23.9-36.7)
[2024-10-07] VITALS (12 sets, daily range): BP systolic 103–147; BP diastolic 66–90; PULSE 84–113; RESP 18–28; TEMP 36.4–36.9; O2SAT 91–96
[2024-10-07] MEDS: heparin drip 25,000 UNIT/500 ML PREMIX 37 UNIT IV (00:03)
--- NOTE | 2024-10-07 02:45 | PC.NURSE ---
mL for heparin gtt was entered into the wrong column, started a new column at 19:00 to fix issue. See MAR please.
[2024-10-07 03:10] LABS: Hematocrit 31.7 % (37-53); Hemoglobin 10.00 g/dL (11.27-16.99); Mean Corpuscular HGB Conc 31.5 g/dL (30-55); Mean Corpuscular Hemoglobin 28.5 pg (27-33); Mean Corpuscular Volume 90.3 fl (82-101); Nucleated Red Blood Cells % 0 %; Platelet Count 326 10^3/cmm (157-399); Red Blood Count 3.51 10^6/uL (3.85-5.65); White Blood Count 11.12 10^3/uL (3.29-11.43)
[2024-10-07 03:24] LABS: Partial Thromboplastin Time 69.8 SECONDS (23.9-36.7)
[2024-10-07 03:33] LABS: Anion Gap 19.4 (5-19); Blood Urea Nitrogen 24 mg/dL (8-23); Calcium 8.8 mg/dL (8.5-10.5); Carbon Dioxide 25 mmol/L (22-29); Chloride 95 mmol/L (98-107); Creatinine Clr Calc Pharmacy 70.4372; Glucose 124 mg/dL (65-115); Osmolality Calculated 285 mOsm/kg (285-295); Potassium 4.4 mmol/L (3.5-5.1); Sodium 135 mmol/L (136-145)
[2024-10-07] MEDS: nitroglycerin 1 gm/inch oint Pkt 0.5 INCH TOPICAL ×2 (06:26→23:26)
[2024-10-07 09:20] LABS: Partial Thromboplastin Time 49.5 SECONDS (23.9-36.7)
[2024-10-07] MEDS: bumetanide 0.25 mg/mL SDV 4 mL 1 MG IVP ×2 (09:23→21:04)
--- NOTE | 2024-10-07 09:45 | P.PN_ITS ---
<Statement entered by Avery Denney MD - 10/09/24 13:31> Patient was evaluated and cared for in conjunction with an advanced practice practitioner. I personally saw the patient and reviewed the chart and all pertinent data. I discussed the patient in detail with the advanced practice practitioner. Please see their note for complete assessment and agreed upon plan of care for the patient. Subjective 2 Subjective: His shortness of breath is improved this morning but he still appears labored. He has not had much urine output with the increase in Bumex. He is somewhat tachycardic in atrial fibrillation this morning. Will give an extra dose of metoprolol 25 mg, added to his scheduled dose of 25 mg this morning to total 50 mg. Vitals/I&O/Wt Last Vital Signs Temp 97.6 F 10/07/24 11:39 Pulse 95 10/07/24 11:39 Resp 28 H 10/07/24 11:39 BP 110/74 10/07/24 11:39 Pulse Ox 94 10/07/24 11:39 O2 Del Method Nasal Cannula 10/07/24 11:39 O2 Flow Rate 5 10/06/24 19:58 FiO2 28 10/06/24 22:32 10/06/24 10/07/24 10/07/24 22:59 06:59 14:59 Intake Total 1064.853 / 1872.583 327.730 / 1872.583 677.067 / 677.067 Output Total 700 / 1850 550 / 1850 600 / 600 Balance 364.853 / 22.583 -222.270 / 22.583 77.067 / 77.067 Weight last 48 hrs Weight 224 lb 1.6 oz Weight 222 lb 14.4 oz Weight 223 lb 5 oz Physical Exam 2 Const: COMMON NORMALS: no acute distress and patient oriented x3 GENERAL APPEARANCE: cooperative and comfortable ORIENTATION/CONSCIOUSNESS: Yes awake, Yes oriented to person, Yes oriented to place and Yes oriented to time Chest: COMMONS NORMALS: normal inspection of the chest and normal palpation of entire chest wall CHEST: Yes Symmetrical chest wall rise Resp: COMMON NORMALS: normal respiratory effort, No retractions and clear to auscultation bilaterally EFFORT & INSPECTION: Yes symmetric chest movement and Yes uses accessory muscles AUSCULTATION: clear to auscultation bilaterally OTHER: Still somewhat labored, but less than yesterday Cardio: COMMON NORMALS: S1 normal heart sound present, S2 normal heart sound present, No gallops present (Cardio), No clicks present (Cardio), No murmurs present (Cardio) and No rub (Cardio) RATE: tachycardic RHYTHM: abnormal rhythm HEART SOUNDS: S1 normal heart sound present and S2 normal heart sound present PERIPHERAL PULSES: radial pulses present Extremity: COMMON NORMALS: no pedal edema Neuro: COMMON NORMALS: patient oriented x3 and moves all extremities S ENSORIUM/ORIENTATION: Yes oriented to person, Yes oriented to place and Yes oriented to time Data 10/07/24 03:05 10/07/24 03:05 A&P Assessment and plan 1. Acute exacerbation of CHF (congestive heart failure): 2. Non-ischemic cardiomyopathy: 3. Paroxysmal atrial fibrillation: 4. Benign essential HTN: 5. Atherosclerotic heart disease of [place] coronary artery with other forms of angina pectoris: 6. Shortness of breath: Plan: Will give a dose of metolazone 5 mg at 5:00 tonight. Continue 1 mg Bumex twice daily, creatinine this morning 1.3, still in his baseline. He is on Eliquis at home 5 mg twice daily, D-dimer 2.39 today. Will check VQ scan and venous duplex to rule out PE and DVT. Avoiding CTA so as to not worsen creatinine. Ordering limited echocardiogram to assess LV function. Will also perform coronary angiography tomorrow, second case at 0830. N.p.o. after midnight tonight. Continue heparin infusion overnight. PDMP PDMP Reviewed: Not Reviewed Attestations 2 Medical Necessity Statement*: Worsening shortness of breath, elevated D-dimer, poor response to diuretic therapy Coding Level of Care Code Acute Code for [facility] Fwd Diagnoses Acute exacerbation of CHF (congestive heart failure) I50.9 Non-ischemic cardiomyopathy I42.8 Paroxysmal atrial fibrillation I48.0 Benign essential HTN I10 Atherosclerotic heart disease of [place] coronary artery with other forms of angina pectoris I25.118 Shortness of breath R06.02
--- NOTE | 2024-10-07 10:37 | P.PN_ITS ---
Subjective 2 Subjective: Breathing somewhat better today. Vitals/I&O/Wt Last Vital Signs Temp 97.8 F 10/07/24 07:41 Pulse 99 10/07/24 09:23 Resp 24 H 10/07/24 07:41 BP 117/83 10/07/24 09:22 Pulse Ox 92 10/07/24 07:41 O2 Del Method Nasal Cannula 10/07/24 07:41 O2 Flow Rate 5 10/06/24 19:58 FiO2 28 10/06/24 22:32 10/06/24 10/07/24 10/07/24 22:59 06:59 14:59 Intake Total 1064.853 / 1544.853 327.730 / 1872.583 457.067 / 457.067 Output Total 700 / 1300 550 / 1850 Balance 364.853 / 244.853 -222.270 / 22.583 457.067 / 457.067 Weight last 48 hrs Weight 101.65 kg Weight 101.106 kg Weight 101.293 kg Weight 105.687 kg Physical Exam 2 Const: COMMON NORMALS: no acute distress and patient oriented x3 GENERAL APPEARANCE: cooperative and comfortable ORIENTATION/CONSCIOUSNESS: Yes awake, Yes oriented to person, Yes oriented to place and Yes oriented to time Chest: COMMONS NORMALS: normal inspection of the chest and normal palpation of entire chest wall CHEST: Yes Symmetrical chest wall rise Resp: COMMON NORMALS: normal respiratory effort, No retractions, No use of accessory muscles and clear to auscultation bilaterally EFFORT & INSPECTION: Yes symmetric chest movement, Yes tachypneic and Yes labored AUSCULTATION: c lear to auscultation bilaterally and diminished lung sounds bilateral in the lower lung cotton Cardio: COMMON NORMALS: S1 normal heart sound present, S2 normal heart sound present, No gallops present (Cardio), No clicks present (Cardio), No murmurs present (Cardio) and No rub (Cardio) RATE: tachycardic RHYTHM: abnormal rhythm irregularly irregular HEART SOUNDS: S1 normal heart sound present and S2 normal heart sound present PERIPHERAL PULSES: radial pulses present Extremity: COMMON NORMALS: no pedal edema Neuro: COMMON NORMALS: patient oriented x3 and moves all extremities S ENSORIUM/ORIENTATION: Yes oriented to person, Yes oriented to place and Yes oriented to time Data 10/07/24 03:05 10/07/24 03:05 A&P Assessment and plan 1. Atherosclerotic heart disease of [place] coronary artery with other forms of angina pectoris: 2. Non-ischemic cardiomyopathy: 3. Acute exacerbation of CHF (congestive heart failure): Plan: 64 year old male presenting with worsening SOB. HFrEF - most recent EF 20% - BNP severely elevated on admission. - has life vest, considering defibrillator in 3 months post PCI - cardiology consulted - hold oral diuretics - received bumex x1 in ER - IV bumex started per cardiology - nitropaste - heparin infusion - cardiology considering coronary angiogram in next 1 - 2 days. CVD with stent - PCI 08/18/24 - cont. DAPT: ASA/plavix, he states he's been consistent since PCI Mild KERON on CKD IIIa - KERON may be limiting factor in diuresis - creatinine slightly increased this AM Afib - not in RVR currently - cont. amiodarone - eliquis held - cont. digoxin, level 0.8 - cont. lopressor Anxiety/depression - cont. duloxetine Hyperlipidemia - on repatha subq, cont. as outpatient. GIA - CPAP continued here - O2 added overnight (does not use O2 at home) Pulmonary hypertension - diuresis as above Hypokalemia - 40 meq given this AM. PPx: eliquis held Diet: HH Disposition - cardiology considering coronary angiogram in next 1 - 2 days PDMP PDMP Reviewed: Not Reviewed Attestations 2 Medical Necessity Statement*: Anticipate > 2 midnights for HFrEF exacerbation, Chest pain. Time Spent in Patient Care: 16 - 35 minutes (>than 50% of time sp ent in counselling and/or direct pt care on unit) . Coding Level of Care Code Acute Code for g Fwd Diagnoses Atherosclerotic heart disease of [place] coronary artery with other forms of angina pectoris I25.118 Non-ischemic cardiomyopathy I42.8 Acute exacerbation of CHF (congestive heart failure) I50.9
--- NOTE | 2024-10-07 14:16 | USCV_ITS ---
Colin Moya Age: 64 Gender: M : 1960 Exam Date: 10/07/2024 15:59 Ordering Phys: Marichuy Thomas Technologist: Exam Location: [facility] – [place] Indication: hx of cad BP: 103 / 69 HR: Rhythm: Sinus Technical Quality: Adequate MEASUREMENTS (Male / Female) Normal Values 2D ECHO LV Diastolic Diameter PLAX 6.4 cm 4.2 - 5.9 / 3.9 - 5.3 cm IVS Diastolic Thickness 1.1 cm 0.6 - 1.0 / 0.6 - 0.9 cm IVS Systolic Thickness 1.7 cm LVPW Diastolic Thickness 1.4 cm 0.6 - 1.0 / 0.6 - 0.9 cm LVPW Systolic Thickness 1.8 cm LVOT Diameter 2.0 cm LV Ejection Fraction 2D Teich 20.8 % LV Ejection Fraction MOD 4C 32.1 % LV Ejection Fraction MOD 2C 23.4 % LV Ejection Fraction 2C AL 23.9 % LA Diameter 5.6 cm RA Systolic Volume 4C AL 59.7 ml RA Systolic Volume 4C MOD 59.1 ml LA Sys Volume AL 201.7 cm cubed LA Sys Volume Index AL 88.2 cm cubed/m squared Aorta at Sinotubular Diameter 3.2 cm M-MODE LA Ao Ratio MM 1.7 AV Cusp Separation MM 2.5 cm FINDINGS Left Ventricle Severely increased left ventricular cavity size. Severely decreased left ventricular systolic function. Left ventricular ejection fraction is estimated at 20 %. There is global severe hypokinesis with regional wall motion abnormalit such as septal anterior and akinesis akinesis with lateral wall severe hypokinesis. Right Ventricle Right Atrium Left Atrium Mitral Valve Aortic Valve Tricuspid Valve Pulmonic Valve Pericardium Aorta IVC CONCLUSIONS Severely increased left ventricular cavity size. Severely decreased left ventricular systolic function. Left ventricular ejection fraction is estimated at 20 %. There is global severe hypokinesis with regional wall motion abnormalit such as septal anterior and apical akinesis with lateral wall severe hypokinesis. There is no pericardial effusion. Tori Handy MD (Electronically Signed) Final Date: 08 October 2024 12:52 S
--- NOTE | 2024-10-07 14:48 | USCV_ITS ---
Colin Moya Age: 64 Gender: M : 1960 Exam Date: 10/07/2024 15:23 Ordering Phys: Marichuy Thomas Technologist: Exam Location: [facility] Indication: high d-dimer PROCEDURES: The venous duplex Doppler examination of both lower extremities was performed in the standard fashion. The following venous structures were evaluated: common femoral vein, profunda vein, proximal portion of the greater saphenous vein, superficial femoral vein, and the popliteal vein. FINDINGS: Normal 2-D Doppler and augmentation and compressibility throughout the lower extremity venous structures. Additional imaging through the proximal calf veins also reveals no thrombus. Limited evaluation of the greater saphenous vein is patent with no thrombus. CONCLUSIONS No evidence of right lower extremity DVT. No evidence of left lower extremity DVT. Amadeo Singleton MD (Electronically Signed) Final Date: 07 October 2024 16:14 S
[2024-10-07] MEDS: heparin drip 25,000 UNIT/500 ML PREMIX 35 UNIT IV (15:09)
[2024-10-07 16:01] LABS: Partial Thromboplastin Time 25.6 SECONDS (23.9-36.7)
[2024-10-07 21:39] LABS: Partial Thromboplastin Time 54.4 SECONDS (23.9-36.7)
--- NOTE | 2024-10-07 23:22 | ECG_ITS ---
[facility] Test Date: 2024-10-07 Pat Name: Colin Moya Department: Room: 106 Gender: Male Organ Recovery Coordinator: : 1960 Requested By: Charissa Trejo Order Number: [id number] Reading MD: JB MANZANO Measurements Intervals [place] Rate: 98 P: 0 DE: 0 QRS: -64 QRSD: 185 T: 97 QT: 417 QTc: 534 Interpretive Statements ATRIAL FIBRILLATION LEFT AXIS DEVIATION [QRS AXIS < -30] LEFT BUNDLE BRANCH BLOCK [120+ ms QRS DURATION, 80+ ms Q/S IN V1/V2, 85+ ms R IN I/aVL/V5/V6] Compared to ECG 10/06/2024 02:37:17 No significant changes Electronically Signed On 10-10-2024 13:58:50 CDT by JB MANZANO [id number]
[2024-10-08] VITALS (15 sets, daily range): BP systolic 96–125; BP diastolic 52–101; PULSE 80–100; RESP 13–24; TEMP 36.4–37.1; O2SAT 91–98; BMI 31.1
[2024-10-08] MEDS: morphine 4 mg/mL SDV 1 mL 2 MG IVP ×2 (00:13→23:43)
[2024-10-08] MEDS: ondansetron 2 mg/ML SDV 2 mL 4 MG IVP (00:35)
--- NOTE | 2024-10-08 00:50 | PC.NURSE ---
Patient stated that he was having chest pain 5/10. EKG ordered and nitro paste placed. Chest pain was becoming worse at 9/10 and radiating into left arm. Dr Ash notified and new orders for troponin/EKG series, morphine, and zofran were placed.
[2024-10-08 01:14] LABS: Troponin(5th) Baseline 16 ng/L (0-15)
--- NOTE | 2024-10-08 01:59 | ECG_ITS ---
[facility] Date: 2024-10-08 Pat Name: Colin Moya Department: Room: 106 Gender: Male Production Counter: : 1960 Requested By: Charissa Trejo Order Number: [id number] Reading MD: JB MANZANO Measurements Intervals [place] Rate: 102 P: 0 AL: 0 QRS: -53 QRSD: 162 T: 124 QT: 442 QTc: 578 Interpretive Statements ATRIAL FIBRILLATION WITH RAPID VENTRICULAR RESPONSE LEFT AXIS DEVIATION [QRS AXIS < -30] LEFT BUNDLE BRANCH BLOCK [120+ ms QRS DURATION, 80+ ms Q/S IN V1/V2, 85+ ms R IN I/aVL/V5/V6] Compared to ECG 10/07/2024 23:24:07 No significant changes Electronically Signed On 10-10-2024 14:10:12 CDT by JB MANZANO [email or web address]
[2024-10-08 03:29] LABS: Hematocrit 28.9 % (37-53); Hemoglobin 9.50 g/dL (11.27-16.99); Mean Corpuscular HGB Conc 32.9 g/dL (30-55); Mean Corpuscular Hemoglobin 29.2 pg (27-33); Mean Corpuscular Volume 88.9 fl (82-101); Nucleated Red Blood Cells % 0 %; Platelet Count 322 10^3/cmm (157-399); Red Blood Count 3.25 10^6/uL (3.85-5.65); White Blood Count 9.61 10^3/uL (3.29-11.43)
[2024-10-08] MEDS: heparin drip 25,000 UNIT/500 ML PREMIX 43 UNIT IV (03:33)
[2024-10-08 03:41] LABS: Partial Thromboplastin Time 66.2 SECONDS (23.9-36.7)
[2024-10-08 03:56] LABS: Anion Gap 17.8 (5-19); Blood Urea Nitrogen 24 mg/dL (8-23); Calcium 8.6 mg/dL (8.5-10.5); Carbon Dioxide 25 mmol/L (22-29); Chloride 95 mmol/L (98-107); Creatinine Clr Calc Pharmacy 76.5009; Glucose 131 mg/dL (65-115); Osmolality Calculated 284 mOsm/kg (285-295); Potassium 3.8 mmol/L (3.5-5.1); Sodium 134 mmol/L (136-145)
[2024-10-08 04:37] LABS: Troponin 5 2HR 126.4 ng/L (0-15); Troponin 5 2HR Delta 110.4 ABS# (0-10)
--- NOTE | 2024-10-08 05:59 | ECG_ITS ---
[facility] Date: 2024-10-08 Pat Name: Colin Moya Department: Room: 106 Gender: Male Bill Of Materials Clerk: : 1960 Requested By: Charissa Trejo Order Number: [id number] Reading MD: JB MANZANO Measurements Intervals [place] Rate: 92 P: 0 KS: 0 QRS: 66 QRSD: 145 T: 265 QT: 400 QTc: 496 Interpretive Statements ATRIAL FIBRILLATION WITH ABERRANT CONDUCTION OR VENTRICULAR PREMATURE COMPLEXES LEFT BUNDLE BRANCH BLOCK [120+ ms QRS DURATION, 80+ ms Q/S IN V1/V2, 85+ ms R IN I/aVL/V5/V6] Compared to ECG 10/08/2024 01:56:51 Ventricular premature complex(es) now present Aberrant conduction of supraventricular beat(s) now present Left-axis deviation no longer present Electronically Signed On 10-10-2024 14:09:39 CDT by JB MANZANO [email or web address] [id number]
[2024-10-08 07:16] LABS: Troponin 5 6HR 252.8 ng/L (0-15); Troponin 5 6HR Delta 236.8 ng/L (0-12)
--- NOTE | 2024-10-08 08:46 | W.PM.OPSUD ---
Surgery/Procedure H&P Update DATE OF PROCEDURE: October 08, 2024 DATE H&P PERFORMED: 10/05/24 H&P UPDATE INFORMATION: I have reviewed H&P completed within last 30 days, I have examined patient prior to procedure and Changes to prior documentation as noted here CHANGES TO PREVIOUS DOCUMENTATION: Patient's troponin levels increased significantly. Consistent with non-ST UT. PREOP DIAGNOSIS: NSTEMI PRIMARY INDICATION FOR PROCEDURE: NSTEMI PLANNED PROCEDURE: Operation Date: 10/08/24 08:00 Proposed Procedures p Cardiac Catheterization(Left) - Edinson Resendiz M.D Possible percutaneous coronary intervention PATIENT REASSESSED PRIOR TO SEDATION, WITH NO CHANGE NOTED: Yes PHYSICAL EXAM: alert, oriented x 3, clear to auscultation bilaterally and regular rate & rhythm AIRWAY EVAL/ANESTHESIA PLAN: normal airway, ASA III, Local Anesthesia, Risks, benefits & alternatives of sedation and/or procedure discussed and Patient agrees to continue as planned ADDITIONAL INFORMATION: Moderate sedation
--- NOTE | 2024-10-08 09:24 | P.PCN_ITS ---
Procedure Note: Date of procedure: 10/08/24 Pre-procedure diagnosis: NSTEMI Post-procedure diagnosis: other Procedure: Ostial diagonal artery has 80% stenosis. Status post successful revascularization with 1 stent. Patent prior LAD and ramus artery stent. Dual antiplatelet therapy with aspirin and plavix Performing Provider: Edinson Resendiz Estimated blood loss (mL): 10 Complications: None Condition: stable Disposition: floor Coding Level of Care Code Acute Code for [facility]
--- NOTE | 2024-10-08 09:31 | PC.NURSE ---
Bumex not given this am due to patient presenting to lab support tech for angiogram. Patient will be bedrest for several hours. Dr Resendiz is aware
--- NOTE | 2024-10-08 09:42 | PC.NURSE ---
Patient received from director of cardiac cath lab s/p [facility] with right femoral artery access. Sheath sutured in place with pressure bag attached. Right groin is c,d,i without s/s of bleeding or hematoma formation observed. Instructed patient and daughter on site care with restrictions. Both verbalized understanding. Sheath removal pending PTT level.
[2024-10-08 11:42] LABS: Partial Thromboplastin Time 72.2 SECONDS (23.9-36.7)
--- NOTE | 2024-10-08 13:40 | P.PN_ITS ---
Subjective 2 Subjective: Patient's troponins were rechecked last night and were significantly elevated. Coronary angiogram demonstrated severe ostial diagonal artery stenosis status post PCI with 1 stent, prior stents in the LAD and OM are patent. Vitals/I&O/Wt Last Vital Signs Temp 98.1 F 10/08/24 12:00 Pulse 80 10/08/24 12:00 Resp 24 H 10/08/24 12:00 BP 125/73 10/08/24 12:00 Pulse Ox 94 10/08/24 12:00 O2 Del Method Nasal Cannula 10/08/24 03:25 O2 Flow Rate 5 10/06/24 19:58 FiO2 28 10/07/24 21:00 10/07/24 10/08/24 10/08/24 22:59 06:59 14:59 Intake Total 374.333 / 1201.750 263.733 / 1465.483 202.1 / 202.1 Output Total 1300 / 2500 2150 / 4650 500 / 500 Balance -925.667 / -1298.250 -1886.267 / -3184.517 -297.9 / -297.9 Weight last 48 hrs Weight 223 lb 6 oz Weight 224 lb 14.4 oz Weight 224 lb 1.6 oz Physical Exam 2 Narrative: GENERAL: Patient is alert, awake and oriented x3. [] NECK: No jugular vein distension. [] HEENT: No cyanosis. No icterus. No pallor. [] HEART: Regular S1 and S2. No murmur, rub or gallop. [] LUNGS: Diminshed air entry CENTRAL NERVOUS SYSTEM: Grossly nonfocal. [] EXTREMITIES: Lower extremities with 1+ edema bilaterally. Data 10/09/24 03:21 10/09/24 03:21 A&P Assessment and plan 1. Acute exacerbation of CHF (congestive heart failure): 2. Non-ischemic cardiomyopathy: 3. Paroxysmal atrial fibrillation: 4. Benign essential HTN: 5. Atherosclerotic heart disease of [place] coronary artery with other forms of angina pectoris: 6. Shortness of breath: 7. NSTEMI (non-ST elevated myocardial infarction): Plan: Patient had PCI of diagonal artery with 1 stent. Eliquis and plavix. Thank you for involving us with care of this patient. Please call with questions. PDMP PDMP Reviewed: Not Reviewed Attestations 2 Medical Necessity Statement*: Care expected to cross 2 midnights. Coding Level of Care Code Acute Code for [facility] Diagnoses Acute exacerbation of CHF (congestive heart failure) I50.9 Non-ischemic cardiomyopathy I42.8 Paroxysmal atrial fibrillation I48.0 Benign essential HTN I10 Atherosclerotic heart disease of [place] coronary artery with other forms of angina pectoris I25.118 Shortness of breath R06.02 NSTEMI (non-ST elevated myocardial infarction) I21.4
--- NOTE | 2024-10-08 13:44 | P.PN_ITS ---
Subjective 2 Subjective: s/p cath with PCI this AM. Vitals/I&O/Wt Last Vital Signs Temp 98.1 F 10/08/24 12:00 Pulse 80 10/08/24 12:00 Resp 24 H 10/08/24 12:00 BP 125/73 10/08/24 12:00 Pulse Ox 94 10/08/24 12:00 O2 Del Method Nasal Cannula 10/08/24 03:25 O2 Flow Rate 5 10/06/24 19:58 FiO2 28 10/07/24 21:00 10/07/24 10/08/24 10/08/24 22:59 06:59 14:59 Intake Total 374.333 / 1201.750 263.733 / 1465.483 202.1 / 202.1 Output Total 1300 / 2500 2150 / 4650 500 / 500 Balance -925.667 / -1298.250 -1886.267 / -3184.517 -297.9 / -297.9 Weight last 48 hrs Weight 101.321 kg Weight 102.013 kg Weight 101.65 kg Physical Exam 2 Const: COMMON NORMALS: no acute distress and patient oriented x3 GENERAL APPEARANCE: cooperative and comfortable ORIENTATION/CONSCIOUSNESS: Yes awake, Yes oriented to person, Yes oriented to place and Yes oriented to time Chest: COMMONS NORMALS: normal inspection of the chest and normal palpation of entire chest wall CHEST: Yes Symmetrical chest wall rise Resp: COMMON NORMALS: normal respiratory effort, No retractions, No use of accessory muscles and clear to auscultation bilaterally EFFORT & INSPECTION: Yes symmetric chest movement, Yes tachypneic and Yes labored AUSCULTATION: c lear to auscultation bilaterally and diminished lung sounds bilateral in the lower lung cotton Cardio: COMMON NORMALS: S1 normal heart sound present, S2 normal heart sound present, No gallops present (Cardio), No clicks present (Cardio), No murmurs present (Cardio) and No rub (Cardio) RATE: tachycardic RHYTHM: abnormal rhythm irregularly irregular HEART SOUNDS: S1 normal heart sound present and S2 normal heart sound present PERIPHERAL PULSES: radial pulses present Extremity: COMMON NORMALS: no pedal edema OTHER: right groin access site, C/D/I, no mass or erythema. Neuro: COMMON NORMALS: patient oriented x3 and moves all extremities S ENSORIUM/ORIENTATION: Yes oriented to person, Yes oriented to place and Yes oriented to time Data 10/08/24 03:05 10/08/24 03:05 A&P Assessment and plan 1. Atherosclerotic heart disease of [place] coronary artery with other forms of angina pectoris: 2. Acute exacerbation of CHF (congestive heart failure): Plan: 64 year old male presenting with worsening SOB. NSTEMI HFrEF - most recent EF 20% - BNP severely elevated on admission. - has life vest, considering defibrillator in 3 months post PCI - cardiology consulted - IV bumex started per cardiology - nitropaste - Taken for coronary angiogram this AM, with one stent to ostial diagonal artery. - patent prior LAD and ramus artery stent. - cont. DAPT with ASA/plavix. H/O CVD with stent - PCI 08/18/24 - cont. DAPT: ASA/plavix, he states he's been consistent since PCI Mild KERON on CKD IIIa - creatinine improved this AM, in normal range. Afib - not in RVR currently - cont. amiodarone - eliquis held - cont. digoxin, level 0.8 - cont. lopressor Anxiety/depression - cont. duloxetine Hyperlipidemia - on repatha subq, cont. as outpatient. GIA - CPAP continued here - O2 added overnight (does not use O2 at home) Pulmonary hypertension - diuresis as above Hypokalemia - replete currently. PPx: eliquis held Diet: HH Disposition - cont. inpatient for post PCI care. PDMP PDMP Reviewed: Not Reviewed Attestations 2 Medical Necessity Statement*: Anticipate > 2 midnights for NSTEMI Time Spent in Patient Care: 16 - 35 minutes (>than 50% of time sp ent in counselling and/or direct pt care on unit) . Coding Level of Care Code Acute Code for [facility] Fwd Diagnoses Atherosclerotic heart disease of [place] coronary artery with other forms of angina pectoris I25.118 Acute exacerbation of CHF (congestive heart failure) I50.9
[2024-10-08 14:01] LABS: Partial Thromboplastin Time 29.9 SECONDS (23.9-36.7)
--- NOTE | 2024-10-08 14:44 | PC.NURSE ---
Patient Sheath pulled at 1415, hemostasis achieved immediately pressure held for 20 minutes, patient tolerated well, vital signs within normal limits. Dressing clean dry and intact.
[2024-10-08] MEDS: bumetanide 0.25 mg/mL SDV 4 mL 1 MG IVP (20:23)
--- NOTE | 2024-10-08 22:57 | ECG_ITS ---
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1960 Requested By: Stanley Singleton Order Number: [id number] Oscar MD: JB MANZANO Measurements Intervals [place] Rate: 102 P: 0 [place]: 0 QRS: -34 QRSD: 190 T: 127 QT: 420 QTc: 548 Interpretive Statements ATRIAL FIBRILLATION WITH RAPID VENTRICULAR RESPONSE LEFT AXIS DEVIATION [QRS AXIS < -30] LEFT BUNDLE BRANCH BLOCK [120+ ms QRS DURATION, 80+ ms Q/S IN V1/V2, 85+ ms R IN I/aVL/V5/V6] Compared to ECG 10/08/2024 05:56:27 Left-axis deviation now present Ventricular premature complex(es) no longer present Aberrant conduction of supraventricular beat(s) no longer present Electronically Signed On 10-10-2024 14:07:40 CDT by JB MANZANO [id number]
[2024-10-08] MEDS: nitroglycerin 1 gm/inch oint Pkt 0.5 INCH TOPICAL (23:03)
[2024-10-08] MEDS: alum-mag-hydroxide-sime 30 mL UDC PO (23:17)
[2024-10-09] VITALS (9 sets, daily range): BP systolic 100–120; BP diastolic 54–87; PULSE 80–119; RESP 17–20; TEMP 36.3–36.7; O2SAT 86–99
--- NOTE | 2024-10-09 00:19 | PC.NURSE ---
This nurse doing rounds, patient up to bathroom and mentioned that he was having chest pressure. Per patient he is having 4/10 chest pressure with SOB and sweating. He states when he lays flat the symptoms become worse, sitting up helps elevates symptoms. EKG obtained vitals taken, BP is 125/101 HR 105 O2 98 % 3L. Patient was given scheduled nitro paste and maalox. Patient does not have relief with interventions. Morphine given and MD notified. Received orders to give sublingual once, when nurse went back in patient BP was 105/76. Clarified with Dr. Ash regarding giving sublingual nitro with current BP. Awaiting response. At the moment patient endorses feeling better . Patient states when he lays down symptoms worsen. Nurse notified Dr. Ash patient statements, IVF he received after cath, and respiratory status. Still awaiting response. Patient educated to let nurse know if symptoms return.
[2024-10-09 04:09] LABS: Hematocrit 27.9 % (37-53); Hemoglobin 9.10 g/dL (11.27-16.99); Mean Corpuscular HGB Conc 32.6 g/dL (30-55); Mean Corpuscular Hemoglobin 28.9 pg (27-33); Mean Corpuscular Volume 88.6 fl (82-101); Nucleated Red Blood Cells % 0 %; Platelet Count 228 10^3/cmm (157-399); Red Blood Count 3.15 10^6/uL (3.85-5.65); White Blood Count 5.99 10^3/uL (3.29-11.43)
[2024-10-09 04:36] LABS: Anion Gap 16.4 (5-19); Blood Urea Nitrogen 24 mg/dL (8-23); Calcium 8.7 mg/dL (8.5-10.5); Carbon Dioxide 28 mmol/L (22-29); Chloride 92 mmol/L (98-107); Creatinine Clr Calc Pharmacy 76.3836; Glucose 115 mg/dL (65-115); Osmolality Calculated 281 mOsm/kg (285-295); Potassium 3.4 mmol/L (3.5-5.1); Sodium 133 mmol/L (136-145)
[2024-10-09] MEDS: bumetanide 0.25 mg/mL SDV 4 mL 1 MG IVP ×2 (06:53→18:08)
--- NOTE | 2024-10-09 07:01 | PC.NURSE ---
patient O2 sats fluctuating in low 90 to 87%. Within last hour patient was dropping to 86% on 3 L NC. Patient bumped up to 5L nc with sats 87-90%. Notified Dr. Singleton regarding respiratory status, events last night, and refusal of Cpap. Received orders to give bumex scheduled at [address] patient on cpap. Per patient the reason he refused cpap was due to mask size. RT notified regarding mask issue and possible titration of O2 on cpap.
--- NOTE | 2024-10-09 07:45 | PM.PN ---
Subjective Subjective: Patient had episode of chest discomfort last night. Now pain-free. Vitals/I&O/Wt Last Vital Signs Temp 98 F 10/09/24 04:30 Pulse 84 10/09/24 04:30 Resp 20 H 10/09/24 04:30 BP 109/74 10/09/24 04:30 Pulse Ox 95 10/09/24 04:30 O2 Del Method Nasal Cannula 10/09/24 04:30 O2 Flow Rate 2 10/08/24 23:32 FiO2 28 10/07/24 21:00 10/08/24 10/09/24 10/09/24 22:59 06:59 14:59 Intake Total 887.5 / 1089.6 960 / 2049.6 480 / 480 Output Total 450 / 950 2000 / 2950 500 / 500 Balance 437.5 / 139.6 -1040 / -900.4 -20 / -20 Weight last 48 hrs Weight 217 lb 4 oz Weight 223 lb 6 oz Weight 224 lb 14.4 oz Physical Exam Narrative: GENERAL: Patient is alert, awake and oriented x3. [] NECK: No jugular vein distension. [] HEENT: No cyanosis. No icterus. No pallor. [] HEART: Regular S1 and S2. No murmur, rub or gallop. [] LUNGS: Diminshed air entry CENTRAL NERVOUS SYSTEM: Grossly nonfocal. [] EXTREMITIES: Lower extremities with 1+ edema bilaterally. Data 10/10/24 01:43 10/10/24 01:43 A&P Assessment and plan 1. Acute exacerbation of CHF (congestive heart failure): 2. Non-ischemic cardiomyopathy: 3. Paroxysmal atrial fibrillation: 4. Benign essential HTN: 5. Atherosclerotic heart disease of [place] coronary artery with other forms of angina pectoris: 6. Shortness of breath: 7. NSTEMI (non-ST elevated myocardial infarction): Plan: Patient had PCI of diagonal artery with 1 stent. Had chest pain episode last night. Chest pain-free now. Continue Eliquis and Plavix. If has more further episodes of chest pain, will trend troponins again. Thank you for involving us with care of this patient. Please call with questions. PDMP PDMP Reviewed: Not Reviewed Attestations Medical Necessity Statement*: Care expected to cross 2 midnights. Coding Level of Care Code Acute Code for Chg Fwd Diagnoses Acute exacerbation of CHF (congestive heart failure) I50.9 Non-ischemic cardiomyopathy I42.8 Paroxysmal atrial fibrillation I48.0 Benign essential HTN I10 Atherosclerotic heart disease of [place] coronary artery with other forms of angina pectoris I25.118 Shortness of breath R06.02 NSTEMI (non-ST elevated myocardial infarction) I21.4
--- NOTE | 2024-10-09 12:08 | P.PN_ITS ---
Subjective 2 Subjective: desatting with SOB O/N, did not wear CPAP. Vitals/I&O/Wt Last Vital Signs Temp 97.9 F 10/09/24 08:00 Pulse 99 10/09/24 09:18 Resp 18 10/09/24 09:18 BP 116/79 10/09/24 08:00 Pulse Ox 90 10/09/24 09:18 O2 Del Method Nasal Cannula 10/09/24 09:18 O2 Flow Rate 4 10/09/24 09:18 FiO2 28 10/07/24 21:00 10/08/24 10/09/24 10/09/24 22:59 06:59 14:59 Intake Total 887.5 / 1089.6 960 / 2049.6 840 / 840 Output Total 450 / 950 2000 / 2950 1650 / 1650 Balance 437.5 / 139.6 -1040 / -900.4 -810 / -810 Weight last 48 hrs Weight 98.543 kg Weight 101.321 kg Weight 102.013 kg Physical Exam 2 Const: COMMON NORMALS: no acute distress and patient oriented x3 GENERAL APPEARANCE: cooperative and comfortable ORIENTATION/CONSCIOUSNESS: Yes awake, Yes oriented to person, Yes oriented to place and Yes oriented to time Chest: COMMONS NORMALS: normal inspection of the chest and normal palpation of entire chest wall CHEST: Yes Symmetrical chest wall rise Resp: COMMON NORMALS: normal respiratory effort, No retractions, No use of accessory muscles and clear to auscultation bilaterally EFFORT & INSPECTION: Yes symmetric chest movement, Yes tachypneic and Yes labored AUSCULTATION: c lear to auscultation bilaterally and diminished lung sounds bilateral in the lower lung cotton Cardio: COMMON NORMALS: S1 normal heart sound present, S2 normal heart sound present, No gallops present (Cardio), No clicks present (Cardio), No murmurs present (Cardio) and No rub (Cardio) RATE: tachycardic RHYTHM: abnormal rhythm irregularly irregular HEART SOUNDS: S1 normal heart sound present and S2 normal heart sound present PERIPHERAL PULSES: radial pulses present Extremity: COMMON NORMALS: no pedal edema OTHER: right groin access site, C/D/I, no mass or erythema. Neuro: COMMON NORMALS: patient oriented x3 and moves all extremities S ENSORIUM/ORIENTATION: Yes oriented to person, Yes oriented to place and Yes oriented to time Data 10/09/24 03:21 10/09/24 03:21 A&P Assessment and plan 1. NSTEMI (non-ST elevated myocardial infarction): Plan: 64 year old male presenting with worsening SOB. NSTEMI HFrEF - most recent EF 20% - BNP severely elevated on admission. - has life vest, considering defibrillator in 3 months post PCI - cardiology consulted - IV bumex started per cardiology - nitropaste - Taken for coronary angiogram this AM, with one stent to ostial diagonal artery. - patent prior LAD and ramus artery stent. - cont. DAPT with ASA/plavix. H/O CVD with stent - PCI 08/18/24 - cont. DAPT: ASA/plavix, he states he's been consistent since PCI Mild KERON on CKD IIIa - creatinine improved this AM, in normal range. Afib - not in RVR currently - cont. amiodarone - eliquis held - cont. digoxin, level 0.8 - cont. lopressor Anxiety/depression - cont. duloxetine Hyperlipidemia - on repatha subq, cont. as outpatient. GIA - CPAP continued here - O2 added overnight (does not use O2 at home) - he did not wear last night, desatted with SOB - advised to bring his own mask for tonight Pulmonary hypertension - diuresis as above Hypokalemia - given 40 meq today. PPx: eliquis held Diet: HH Disposition - cont. inpatient for post PCI care. - possible D/C in the AM if cleared by cardiology. PDMP PDMP Reviewed: Not Reviewed Attestations 2 Medical Necessity Statement*: Anticipate > 2 midnights for NSTEMI Time Spent in Patient Care: 16 - 35 minutes (>than 50% of time sp ent in counselling and/or direct pt care on unit) . Coding Level of Care Code Acute Code for [facility] Diagnoses NSTEMI (non-ST elevated myocardial infarction) I21.4
--- NOTE | 2024-10-09 21:51 | PC.NURSE ---
Notified Nilsa Hernández of patient BP on left arm of 88/63 and BP on right arm of 114/64. Discussed previous BP during day shift and clarified metoprolol order. Received orders to recheck BP on both arms in 15-30 minutes to see if metoprolol is still appropriate at this time.
[2024-10-10] VITALS (13 sets, daily range): BP systolic 82–124; BP diastolic 61–89; PULSE 79–110; RESP 14–20; TEMP 36.3–37.1; O2SAT 93–100
--- NOTE | 2024-10-10 00:42 | ECG_ITS ---
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
--- NOTE | 2024-10-10 01:07 | PC.NURSE ---
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 Vitals taken, EKG obtained and patient received [address] villalpando made aware and suggest contacting cardiololgy. Dr. tsai notified of current situation and sent EKG image. Received orders to trend troponins and notifiy him if they are above 500. Can add nitro paste if discomfort continues.
[2024-10-10 02:02] LABS: Hematocrit 30.5 % (37-53); Hemoglobin 9.90 g/dL (11.27-16.99); Mean Corpuscular HGB Conc 32.5 g/dL (30-55); Mean Corpuscular Hemoglobin 29.1 pg (27-33); Mean Corpuscular Volume 89.7 fl (82-101); Nucleated Red Blood Cells % 0 %; Platelet Count 366 10^3/cmm (157-399); Red Blood Count 3.40 10^6/uL (3.85-5.65); White Blood Count 4.52 10^3/uL (3.29-11.43)
[2024-10-10 02:28] LABS: Troponin(5th) Baseline 258 ng/L (0-15)
[2024-10-10 02:55] LABS: Anion Gap 15.8 (5-19); Blood Urea Nitrogen 23 mg/dL (8-23); Calcium 8.9 mg/dL (8.5-10.5); Carbon Dioxide 32 mmol/L (22-29); Chloride 96 mmol/L (98-107); Creatinine Clr Calc Pharmacy 69.5939; Glucose 102 mg/dL (65-115); Osmolality Calculated 294 mOsm/kg (285-295); Potassium 3.8 mmol/L (3.5-5.1); Sodium 140 mmol/L (136-145)
[2024-10-10 05:36] LABS: Troponin 5 2HR 290.2 ng/L (0-15)
[2024-10-10 05:38] LABS: Troponin 5 2HR Delta 32.2 ABS# (0-10)
[2024-10-10] MEDS: bumetanide 0.25 mg/mL SDV 4 mL 1 MG IVP ×2 (07:48→17:56)
[2024-10-10 08:32] LABS: Troponin 5 6HR 315.1 ng/L (0-15)
[2024-10-10 08:33] LABS: Troponin 5 6HR Delta 57.1 ng/L (0-12)
--- NOTE | 2024-10-10 11:15 | P.PN_ITS ---
<Statement entered by Avery Denney MD - 10/10/24 14:56> Patient was evaluated and cared for in conjunction with an advanced practice practitioner. I personally saw the patient and reviewed the chart and all pertinent data. I discussed the patient in detail with the advanced practice practitioner. Please see their note for complete assessment and agreed upon plan of care for the patient. Subjective 2 Subjective: He had 1 stent to the diagonal on 10/08. He continues to have typical chest pain radiating down the left arm, occurring at night, relieved by nitro, troponin elevated. Will plan for coronary angiogram tomorrow to further evaluate. N.p.o. after midnight tonight. Will hold evening dose of Eliquis, give Lovenox tonight. Ventilation/perfusion scan read this morning, low probability of PE. Vitals/I&O/Wt Last Vital Signs Temp 98.2 F 10/10/24 08:00 Pulse 90 10/10/24 08:38 Resp 20 H 10/10/24 08:00 BP 114/82 10/10/24 08:38 Pulse Ox 96 10/10/24 10:24 O2 Del Method Nasal Cannula 10/10/24 07:49 O2 Flow Rate 4 10/10/24 07:49 FiO2 28 10/07/24 21:00 10/09/24 10/10/24 10/10/24 22:59 06:59 14:59 Intake Total 300 / 1500 360 / 360 Output Total 350 / 2375 375 / 2375 Balance -50 / -875 -375 / -875 360 / 360 Weight last 48 hrs Weight 210 lb 3.2 oz Weight 217 lb 4 oz Physical Exam 2 Const: COMMON NORMALS: no acute distress and patient oriented x3 Chest: COMMONS NORMALS: normal inspection of the chest and normal palpation of entire chest wall CHEST: Yes Symmetrical chest wall rise Resp: COMMON NORMALS: normal respiratory effort, No retractions, No use of accessory muscles and clear to auscultation bilaterally EFFORT & INSPECTION: Yes symmetric chest movement AUSCULTATION: clear to auscultation bilaterally Cardio: COMMON NORMALS: S1 normal heart sound present, S2 normal heart sound present, No gallops present (Cardio), No clicks present (Cardio), No murmurs present (Cardio) and No rub (Cardio) RHYTHM: abnormal rhythm irregularly irregular HEART SOUNDS: S1 normal heart sound present and S2 normal heart sound present PERIPHERAL PULSES: radial pulses present, posterior tibial pulses present and dorsalis pedis present Neuro: COMMON NORMALS: patient oriented x3 and moves all extremities Psych: COMMON NORMALS: mental status grossly normal and cooperative Data 10/10/24 01:43 10/10/24 01:43 A&P Assessment and plan 1. Paroxysmal atrial fibrillation: 2. Atherosclerotic heart disease of [place] coronary artery with other forms of angina pectoris: 3. Acute exacerbation of CHF (congestive heart failure): 4. Non-ischemic cardiomyopathy: 5. NSTEMI (non-ST elevated myocardial infarction): Plan: He has typical chest pain symptoms with troponin elevation. Coronary angiogram tomorrow morning. Continue Plavix, amiodarone, digoxin, losartan, metoprolol, Bumex. Holding [facility] [employer]. PDMP PDMP Reviewed: Not Reviewed Attestations 2 Medical Necessity Statement*: ischemic workup Coding Level of Care Code Acute Code for [facility] Diagnoses Paroxysmal atrial fibrillation I48.0 Atherosclerotic heart disease of [place] coronary artery with other forms of angina pectoris I25.118 Acute exacerbation of CHF (congestive heart failure) I50.9 Non-ischemic cardiomyopathy I42.8 NSTEMI (non-ST elevated myocardial infarction) I21.4
--- NOTE | 2024-10-10 14:42 | NM_ITS ---
WS: [id number] NUCLEAR MEDICINE VENTILATION/PERFUSION LUNG SCAN HISTORY: elevated d-dimer, shortness of breath COMPARISON: Chest radiograph 10/05/2024 TECHNIQUE: Ventilation: 32.2 mCi of Technetium 99 DTPA aerosol inhaled. Perfusion: 5.4 mCi of technetium 99m MAA IV. During ventilation there is deposition of the radionuclide centrally and in the lower lung cotton, bilaterally. Heart is enlarged. There are no wedge-shaped defects or matched defects noted on the perfusion exam. No mismatch defects. NM/NM pul vent and perfus* [id number] IMPRESSION: Low probability of pulmonary embolism.
--- NOTE | 2024-10-10 19:10 | PM.PN ---
Subjective Subjective: The patient was seen in the morning and stable no acute concerns. The patient had mild chest pain in 24 hours and repeat troponin showed increased value Cardiology made aware and for relook angiogram in the morning Vitals/I&O/Wt Last Vital Signs Temp 98.2 F 10/10/24 08:00 Pulse 96 10/10/24 14:00 Resp 14 10/10/24 11:27 BP 82/70 10/10/24 11:27 Pulse Ox 94 10/10/24 11:27 O2 Del Method Nasal Cannula 10/10/24 07:49 O2 Flow Rate 4 10/10/24 07:49 FiO2 28 10/07/24 21:00 10/10/24 10/10/24 10/10/24 06:59 14:59 22:59 Intake Total 360 / 360 480 / 840 Output Total 375 / 2375 710 / 710 900 / 1610 Balance -375 / -875 -350 / -350 -420 / -770 Weight last 48 hrs Weight 95.345 kg Weight 98.543 kg Physical Exam Narrative: General: Alert oriented x3, patient seen comfortable, normal room air oxygen HEENT: Normocephalic, atraumatic, EOMI Cardio: Regular rate rhythm, normal S1-S2, no murmurs rubs gallops, JVD normal Respiratory: Good bilateral air entry, no wheezes no rhonchi appreciated GI: Abdomen soft, nontender, nondistended, normoactive bowel sounds present all 4 quadrants, Neuro: Cranial nerves II to XII intact, strength 5/5, sensation 5/5, no gross neurological deficit Behavior: Appropriate and cooperative Extremities: Pulses 2+, no edema, no cyanosis Skin: Visible skin intact, no rashes Data 10/10/24 01:43 10/10/24 01:43 A&P Assessment and plan 1. NSTEMI (non-ST elevated myocardial infarction): Patient has chest pain in 24 hours with rising troponins Cardiology aware and for relook angiogram Continue on Plavix, metoprolol, losartan 2. Pulmonary hypertension: Continue to monitor any symptoms of fluid overload, shortness of breath syncope or dizziness 3. Atherosclerotic heart disease of [place] coronary artery with other forms of angina pectoris: Follow cardio recommendation Nitroglycerin and analgesics as needed 4. Benign essential HTN: Continue to monitor blood pressure Continue on losartan, bumetanide and metoprolol 5. Mixed hyperlipidemia: To follow as outpatient with the primary care physician 6. Paroxysmal atrial fibrillation: Continue on digoxin, amiodarone apixaban for anticoagulation PDMP PDMP Reviewed: Not Reviewed Attestations Medical Necessity Statement*: The patient will stay for further evaluation of his chest pain and rise in troponin and optimization of clinical condition Time Spent in Patient Care: I spent 45 minutes on this encounter before, during and after the visit, examining the patient, reviewing labs, writing orders and documenting the note and discussing with nursing staff taking care of the patient. Other Attestations: This documentation was created by [employer] value analysis coordinator software. Every effort was made to ensure accuracy of value analysis coordinator.? Any obvious errors or omissions should be clarified with the author of the document. Coding Level of Care Code 78208 Diagnoses NSTEMI (non-ST elevated myocardial infarction) I21.4 Pulmonary hypertension I27.20 Atherosclerotic heart disease of [place] coronary artery with other forms of angina pectoris I25.118 Benign essential HTN I10 Mixed hyperlipidemia E78.2 Hyperlipidemia type: mixed hyperlipidemia Paroxysmal atrial fibrillation I48.0
--- NOTE | 2024-10-10 20:40 | ECG_ITS ---
[facility] Date: 2024[facility]10 Pat Name: Colin Moya Department: Room: 106 Gender: Male Line Director: : 1960 Requested By: Ayesha Lancaster Order Number: [id number] Oscar MD: Terese Bustillos M.D. Measurements Intervals [place] Rate: 83 P: 0 SD: 0 QRS: 68 QRSD: 141 T: 267 QT: 415 QTc: 489 Interpretive Statements ATRIAL FIBRILLATION LEFT BUNDLE BRANCH BLOCK [120+ ms QRS DURATION, 80+ ms Q/S IN V1/V2, 85+ ms R IN I/aVL/V5/V6] Compared to ECG 10/10/2024 00:45:42 Left-axis deviation no longer present Electronically Signed On 10-11-2024 23:04:12 CDT by Terese Bustillos M.D. [email or web address]
[2024-10-10 21:53] LABS: Troponin(5th) Baseline 316 ng/L (0-15)
--- NOTE | 2024-10-10 22:25 | ECG_ITS ---
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 Measurements Intervals [place] Rate: 82 P: 0 OK: 0 QRS: -49 QRSD: 209 T: 97 QT: 480 QTc: 562 Interpretive Statements ATRIAL FIBRILLATION LEFT AXIS DEVIATION [QRS AXIS < -30] LEFT BUNDLE BRANCH BLOCK [120+ ms QRS DURATION, 80+ ms Q/S IN V1/V2, 85+ ms R IN I/aVL/V5/V6] Compared to ECG 10/10/2024 20:40:56 Left-axis deviation now present Electronically Signed On 10-12-2024 09:28:38 CDT by Terese Bustillos M.D. [id number]
[2024-10-10 23:45] LABS: Troponin 5 2HR 364.5 ng/L (0-15); Troponin 5 2HR Delta 48.5 ABS# (0-10)
[2024-10-11] VITALS (13 sets, daily range): BP systolic 97–134; BP diastolic 59–91; PULSE 72–102; RESP 14–23; TEMP 36.2–36.6; O2SAT 97–99
--- NOTE | 2024-10-11 02:08 | ECG_ITS ---
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 Measurements Intervals [place] Rate: 76 P: 0 OR: 0 QRS: 116 QRSD: 206 T: -35 QT: 489 QTc: 552 Interpretive Statements ATRIAL FIBRILLATION LEFT BUNDLE BRANCH BLOCK [120+ ms QRS DURATION, 80+ ms Q/S IN V1/V2, 85+ ms R IN I/aVL/V5/V6] Compared to ECG 10/10/2024 22:25:21 Left-axis deviation no longer present Electronically Signed On 10-12-2024 09:28:12 CDT by Terese Bustillos M.D. [email or web address] [id number]
[2024-10-11 02:41] LABS: Hematocrit 30.3 % (37-53); Hemoglobin 9.80 g/dL (11.27-16.99); Mean Corpuscular HGB Conc 32.3 g/dL (30-55); Mean Corpuscular Hemoglobin 28.4 pg (27-33); Mean Corpuscular Volume 87.8 fl (82-101); Nucleated Red Blood Cells % 0 %; Platelet Count 404 10^3/cmm (157-399); Red Blood Count 3.45 10^6/uL (3.85-5.65); White Blood Count 4.49 10^3/uL (3.29-11.43)
[2024-10-11 03:20] LABS: Alanine Aminotransferase 12 U/L (0-41); Albumin Level 3.2 g/dL (3.5-5.2); Alkaline Phosphatase 100 U/L (40-130); Anion Gap 15.0 (5-19); Aspartate Amino Transferase 13 U/L (0-40); Blood Urea Nitrogen 24 mg/dL (8-23); Calcium 9.0 mg/dL (8.5-10.5); Carbon Dioxide 31 mmol/L (22-29); Chloride 95 mmol/L (98-107); Creatinine Clr Calc Pharmacy 68.5415; Globulin 2.7 g/dL (1.3-4.6); Glucose 108 mg/dL (65-115); Osmolality Calculated 289 mOsm/kg (285-295); Potassium 4.0 mmol/L (3.5-5.1); Sodium 137 mmol/L (136-145); Total Protein 5.9 g/dL (6.6-8.7)
[2024-10-11 03:22] LABS: Troponin 5 6HR 433.8 ng/L (0-15); Troponin 5 6HR Delta 117.8 ng/L (0-12)
--- NOTE | 2024-10-11 05:43 | PC.NURSE ---
Patient is gong to lab aid this AM at 0600. Retimed bumex for 0900 to allow time for cath procedure. Double check if bumex needed to be retimed with lab aid.
--- NOTE | 2024-10-11 05:52 | PC.NURSE ---
Patient off unit to gold leaf laborer, family following to wait in waiting room.
--- NOTE | 2024-10-11 06:15 | W.PM.OPSUD ---
Surgery/Procedure H&P Update DATE OF PROCEDURE: October 11, 2024 DATE H&P PERFORMED: 10/05/24 H&P UPDATE INFORMATION: I have reviewed H&P completed within last 30 days, I have examined patient prior to procedure and Changes to prior documentation as noted here CHANGES TO PREVIOUS DOCUMENTATION: Patient has been having chest discomfort episodes and troponin increased post PCI of the diagonal artery 3 days ago. Plan for coronary angiogram with possible PCI. PREOP DIAGNOSIS: NSTEMI PRIMARY INDICATION FOR PROCEDURE: NSTEMI PLANNED PROCEDURE: Operation Date: 10/11/24 08:00 Proposed Procedures p Cardiac Catheterization(Left) - Edinson Resendiz M.D Possible percutaneous coronary intervention PATIENT REASSESSED PRIOR TO SEDATION, WITH NO CHANGE NOTED: Yes PHYSICAL EXAM: alert, oriented x 3 and clear to auscultation bilaterally OTHER PERTINENT EXAM FINDINGS: Irregularly irregular AIRWAY EVAL/ANESTHESIA PLAN: normal airway, ASA III, Local Anesthesia, Risks, benefits & alternatives of sedation and/or procedure discussed and Patient agrees to continue as planned ADDITIONAL INFORMATION: Moderate sedation
--- NOTE | 2024-10-11 06:49 | PM.PROC ---
Procedure Note: Date of procedure: 10/11/24 Pre-procedure diagnosis: NSTEMI Post-procedure diagnosis: other (Patent prior stents in LAD, Diagonal artery and high OM. Negative iFR of mid RCA) Procedure: Left main artery is patent. Patent prior LAD stent. Patent diagonal artery stent. Patent high OM stent. Moderate mid RCA stenosis status post IFR that is negative for ischemia with a value of 0.93. Medical management advised. Continue Plavix. Will resume Eliquis tonight. Transfer back to cardiac stepdown unit. Performing Provider: Edinson Resendiz Estimated blood loss (mL): 5 Complications: None Condition: stable Disposition: floor Coding Level of Care Code Acute Code for [facility]
--- NOTE | 2024-10-11 08:43 | P.DS_ITS ---
Discharge Providers Date of Admission: 10/05/24 16:33 Date of Discharge: October 11, 2024 Attending Provider at Admission: Stanley Singleton MD Attending Provider at Discharge: Ayesha Lancaster MD Primary Care Provider: Francis Elmore Diagnoses at Discharge Discharge Diagnosis 1. NSTEMI (non-ST elevated myocardial infarction): 2. Pulmonary hypertension: 3. Atherosclerotic heart disease of [place] coronary artery with other forms of angina pectoris: 4. Benign essential HTN: 5. Mixed hyperlipidemia: 6. Paroxysmal atrial fibrillation: Reason for Visit Reason for Visit: Dr Hart Chest feeling heavy SOB O2 Low Brief History: Colin Moya is a 64 year old male presenting with SOB started Thursday and wor sening over the last several days. PMHx is significant for severe ischemic cardiomyopathy with recent RHC and PCI and stent placement in August of this year. He states he is consistent with ASA/plavix since then. He was also discharged on a life vest and is being considered for a cardiac defibrillator around 3 months post PCI. Per report, his diuretics were recently reduced 2/2 elevated creatinine and this has recently improved. The patient came to ER with experiencing increased chest pain. Chest x-ray was done and it showed improvement in alveolar opacities. He was kept in the hospital and further managed for chest pain with repeat troponin and EKGs. The EKG did not show any ST segment elevation MT however the tropes had up trended value and underwent cardiac cath without any stenting. The patient again complained of chest pain during his hospital stay and had a relook angio which further cemented that the patient is having possibility of vasospastic disease leading to chest pain. Upon further discussion with the cardiology to be discharged on Hospital Course Hospital Course Chest x-ray was done and it showed improvement in alveolar opacities. He was kept in the hospital and further managed for chest pain with repeat troponin and EKGs. The EKG did not show any ST segment elevation MT however the tropes had up trended value and underwent cardiac cath without any stenting. The patient again complained of chest pain during his hospital stay and had a relook angio which further cemented that the patient is having possibility of vasospastic disease leading to chest pain, the patient had uneventful cath. Upon further discussion with the cardiology to be discharged on Plavix, amiodarone, digoxin, losartan, metoprolol, Bumex. Eliquis to be resumed tonight. Patient has had one time dose of aspirin, then from now on will take Eliquis and Plavix only. The patient was informed about his plan of care during his hospital stay without any language barrier patient he agreed with that Physical Exam Narrative: General: Alert oriented x3, patient seen comfortable, normal room air oxygen HEENT: Normocephalic, atraumatic, EOMI Cardio: Regular rate rhythm, normal S1-S2, no murmurs rubs gallops, JVD normal Respiratory: Good bilateral air entry, no wheezes no rhonchi appreciated GI: Abdomen soft, nontender, nondistended, normoactive bowel sounds present all 4 quadrants, Neuro: Cranial nerves II to XII intact, strength 5/5, sensation 5/5, no gross neurological deficit Behavior: Appropriate and cooperative Extremities: Pulses 2+, no edema, no cyanosis Skin: Visible skin intact, no rashes Discharge Data Studies Completed and Pending Completed Studies During Hospitalization Category Date Time Status XR chest 1V portable [id number] Stat Exams 10/05/24 12:50 Completed NM pul vent and perfus* [id number] Routine Nuc Med 10/10/24 14:42 [place] [id number] Stat Ultrasound 10/07/24 14:48 Completed CV. echo limited [id number] Routine Ultrasound 10/07/24 14:16 Completed Pending at discharge Category Date Time Status CREAM CHEESE MAKER request for service Routine Exams 10/08/24 07:30 Taken CREAM CHEESE MAKER request for service Routine Exams 10/11/24 05:27 Taken Radiology Impressions Chest X-Ray 10/05/24 12:50 Impression: 1. The bilateral alveolar opacities have diminished significantly. 2. The remainder of the chest shows no change. Pulmonary Perfusion Imaging 10/10/24 14:42 IMPRESSION: Low probability of pulmonary embolism. Laboratory Results WBC 4.49 10^3/uL (3.29-11.43) 10/11/24 02:32 RBC 3.45 10^6/uL (3.85-5.65) L 10/11/24 02:32 Hgb 9.80 g/dL (11.27-16.99) L 10/11/24 02:32 Hct 30.3 % (37-53) L 10/11/24 02:32 MCV 87.8 fl (82-101) 10/11/24 02:32 MCH 28.4 pg (27-33) 10/11/24 02:32 MCHC 32.3 g/dL (30-55) 10/11/24 02:32 RDW 14.8 % (12.1-15.1) 10/11/24 02:32 Plt Count 404 10^3/cmm (157-399) H 10/11/24 02:32 MPV 9.0 fL (7.4-10.4) 10/11/24 02:32 Neut % (Auto) 61.2 % 10/11/24 02:32 Lymph % (Auto) 22.3 % 10/11/24 02:32 [place] % (Auto) 8.5 % 10/11/24 02:32 Eos % (Auto) 4.7 % 10/11/24 02:32 Baso % (Auto) 0.4 % 10/11/24 02:32 Neut # (Auto) 2.75 10^3/uL (1.8-7.7) 10/11/24 02:32 Lymph # (Auto) 1.0 10^3/uL (0.8-4.8) 10/11/24 02:32 [place] # (Auto) 0.4 10^3/uL (0.2-0.9) 10/11/24 02:32 Eos # (Auto) 0.2 10^3/uL (0.0-0.8) 10/11/24 02:32 Baso # (Auto) 0.0 10^3/uL (0.0-0.1) 10/11/24 02:32 Nucleated RBC % (auto) 0 % 10/11/24 02:32 Nucleated RBCs # 0.0 /100WBC 10/11/24 02:32 PT 17.60 SECONDS (12.1-14.9) H 10/05/24 13:25 INR 1.36 (0.8-1.2) H 10/05/24 13:25 APTT 29.9 SECONDS (23.9-36.7) D 10/08/24 12:59 D-Dimer 2.39 ug/mLFEU (0-0.59) H 10/07/24 09:02 Sodium 137 mmol/L (136-145) 10/11/24 02:32 Potassium 4.0 mmol/L (3.5-5.1) 10/11/24 02:32 Chloride 95 mmol/L (98-107) L 10/11/24 02:32 Carbon Dioxide 31 mmol/L (22-29) H 10/11/24 02:32 Anion Gap 15.0 (5-19) 10/11/24 02:32 BUN 24 mg/dL (8-23) H 10/11/24 02:32 Creatinine 1.3 mg/dL (0.7-1.2) H 10/11/24 02:32 GFR Calculation 55.8 mL/min (90-130) L 10/11/24 02:32 Glucose 108 mg/dL (65-115) 10/11/24 02:32 POC Glucose 189 mg/dL (70-110) H 10/05/24 20:48 Calculated Osmolality 289 mOsm/kg (285-295) 10/11/24 02:32 Calcium 9.0 mg/dL (8.5-10.5) 10/11/24 02:32 Phosphorus 3.5 mg/dL (2.5-4.5) 10/06/24 00:33 Magnesium 2.6 mg/dL (1.7-2.3) H 10/06/24 00:33 Total Bilirubin 0.4 mg/dL (0.15-1.2) 10/11/24 02:32 AST 13 U/L (0-40) 10/11/24 02:32 ALT 12 U/L (0-41) 10/11/24 02:32 Alkaline Phosphatase 100 U/L (40-130) 10/11/24 02:32 Troponin T Baseline 316 ng/L (0-15) H* 10/10/24 20:47 Troponin T 120 Minute 364.5 ng/L (0-15) H 10/10/24 23:07 Delta Troponin T 48.5 ABS# (0-10) H* 10/10/24 23:07 Troponin T Hi Sens 6Hr 433.8 ng/L (0-15) H 10/11/24 02:32 Troponin T Hi Sens 6Hr Delta 117.8 ng/L (0-12) H* 10/11/24 02:32 NT-Pro-B Natriuret Pep 93700 pg/mL (0-125) H 10/05/24 13:25 Total Protein 5.9 g/dL (6.6-8.7) L 10/11/24 02:32 Albumin 3.2 g/dL (3.5-5.2) L 10/11/24 02:32 Globulin 2.7 g/dL (1.3-4.6) 10/11/24 02:32 Digoxin 0.8 ng/mL (0.6-1.2) 10/05/24 14:48 Vitals Last Vital Signs Temp 97.8 F 10/11/24 08:00 Pulse 81 10/11/24 08:00 Resp 14 10/11/24 08:00 BP 98/59 10/11/24 08:00 Pulse Ox 99 10/11/24 08:00 O2 Del Method Room Air 10/11/24 08:00 O2 Flow Rate 1 10/10/24 23:45 FiO2 28 10/07/24 21:00 Discharge Plan Discharge Patient Disposition: Home Prescriptions: New isosorbide mononitrate 30 mg tablet extended release 24 hr 15 mg PO QAM Qty: 120 3RF Continued duloxetine 60 mg capsule,delayed release(DR/EC) 60 mg PO DAILY potassium chloride [Klor-Con 10] 10 mEq tablet extended release 10 meq PO DAILY Qty: 90 1RF metoprolol tartrate 25 mg tablet 25 mg PO BID@0900,2100 Qty: 180 3RF digoxin 125 mcg (0.125 mg) tablet 125 mcg PO DAILY Qty: 90 3RF bumetanide 1 mg tablet See Rx Instructions .ROUTE .COMPLEX Qty: 90 0RF Dose Instruction: TAKE 2 TABLETS BY MOUTH ONCE DAILY IN THE MORNING AND 1 ONCE DAILY AT 2PM. Rx Instructions: TAKE 2 TABLETS BY MOUTH ONCE DAILY IN THE MORNING AND 1 ONCE DAILY AT 2PM. amiodarone [Pacerone] 200 mg tablet 200 mg PO DAILY Qty: 90 0RF Eliquis 5 mg tablet 5 mg PO BID@0900,2100 Rx Instructions: Take 1 tablet by mouth twice daily clopidogrel 75 mg Tablet 75 mg PO DAILY 90 Days Qty: 90 3RF losartan 25 mg tablet 25 mg PO DAILY Qty: 30 5RF Repatha SureClick 140 mg/mL pen injector 140 mg SUBCUT Q14D Discontinued aspirin 81 mg tablet,delayed release (DR/EC) 81 mg PO DAILY Discharge Order = DC NOW: Discharge Order (Routine); Ordered 10/11/24 Ordered By: Ayesha Lancaster Referrals: Fidelia Condon NP [Nurse Practitioner, Cardiology] - 10/25/24 8:30 am Terese Bustillos MD [Physician, Cardiology] - 7-10 days Mumtaz Lorenzo FNP [Nurse Practitioner, Family Practice] - 10/19/24 8:40 am Referral Note: Follow-up appointment with Yovanny Lorenzo on October 19 @ 8:40 am. Discharge Diet: Advance as tolerated Discharge Activity: Resume usual activity Patient Instructions: Isosorbide Mononitrate (By mouth) (Imdur, Imdur ER, Ismo), Coronary Angioplasty (DC), CHF Stoplight, Opioid Safety, Post Angiogram Home Care Instructions, Patient Portal & Jorge L Instructions Discharge Attestations Time Spent in Discharge Care*: greater than 30 min Specific Discharge Activities: educating patient, educating and/or supporting family/caregiver, discussing with pcp/other providers, discussing with caser in/social workers/dc planners, documenting/other paperwork and evaluating patient/reviewing data Status at Discharge: Cognitive status at discharge: cognitively intact , Behavioral status at discharge: cooperative , Quality Metrics Clinical Quality Measures [ Acute Myocardial Infaction { Clinical Trial Participant: No; Contraindication to aspirin: None; Aspirin prescribed; Contraindication to statin: Drug intolerance; Contraindication to PCI: None; PCI performed; Contraindication to Fibrinolytics: Alternative treatment initiated}] Coding Level of Care Code 33504 Diagnoses NSTEMI (non-ST elevated myocardial infarction) I21.4 Pulmonary hypertension I27.20 Atherosclerotic heart disease of [place] coronary artery with other forms of angina pectoris I25.118 Benign essential HTN I10 Mixed hyperlipidemia E78.2 Hyperlipidemia type: mixed hyperlipidemia Paroxysmal atrial fibrillation I48.0
--- NOTE | 2024-10-11 10:42 | PC.NURSE ---
per Fidelia Condon NP, patient not to receive potassium because his bumex is on hold.
--- NOTE | 2024-10-11 15:17 | P.PN_ITS ---
<Statement entered by Edinson Resendiz M.D - 10/12/24 09:36> Patient was cared for in conjunction with an advanced practice practitioner.? I reviewed the chart and all pertinent data including imaging, telemetry, and laboratory results.? I discussed the patient in detail with the advanced practice practitioner.? Please see?their note for progress note, testing results and agreed upon plan of care for the patient. Subjective 2 Subjective: Patient went to the Training Mgr today. Left main artery is patent patent prior LAD stent patent diagonal artery stent patent high OM stent moderate mid RCA stenosis status post IFR that is negative for ischemia with value of 0.93. Medical management advised. Continue Plavix. Will give low-dose aspirin 81 mg this morning and then resume Eliquis tonight. Overall doing well with no complaints at this time. FEM stick site looks good so far. Vitals/I&O/Wt Last Vital Signs Temp 97.1 F L 10/11/24 15:07 Pulse 81 10/11/24 15:07 Resp 19 H 10/11/24 15:07 BP 100/63 10/11/24 15:07 Pulse Ox 97 10/11/24 15:07 O2 Del Method Room Air 10/11/24 12:00 O2 Flow Rate 1 10/10/24 23:45 FiO2 28 10/07/24 21:00 10/11/24 10/11/24 10/11/24 06:59 14:59 22:59 Intake Total 0 / 840 240 / 240 Output Total 1210 / 1210 Balance 0 / -1595 -970 / -970 Weight last 48 hrs Weight 210 lb 3.2 oz Physical Exam 2 Narrative: General: No apparent distress Muskuloskeletal: Full ROM Respiratory: Normal respiratory effort, clear to auscultation bilaterally throughout all lung cotton, no use of accessory muscles Cardio: No JVD, regular rate, regular rhythm, S1 S2 normal, no murmurs, peripheral pulses 2+ radial palpated bilaterally Extremities: Full ROM, normal, normal capillary refill, no cyanosis or edema Neuro: Alert and oriented x4, no focal motor deficits Psych: Affect normal, mental status grossly normal Skin: Right fem stick stite, margret, dry, intact w/o s/s of hematoma Data 10/11/24 02:32 10/11/24 02:32 A&P Assessment and plan 1. Paroxysmal atrial fibrillation: 2. Atherosclerotic heart disease of [place] coronary artery with other forms of angina pectoris: 3. Acute exacerbation of CHF (congestive heart failure): 4. Non-ischemic cardiomyopathy: 5. NSTEMI (non-ST elevated myocardial infarction): Plan: Continue medical management. Denies chest discomfort at this time. Continue Plavix, amiodarone, digoxin, losartan, metoprolol, Bumex. Eliquis to be resumed tonight. Patient has had one time dose of aspirin, then from now on will take Eliquis and Plavix only. If he does ok, may be discharged with afternoon if fem stick site looks good. PDMP PDMP Reviewed: Not Reviewed Attestations 2 Medical Necessity Statement*: Deferred to primary. Coding Level [facility] Paroxysmal atrial fibrillation I48.0 Atherosclerotic heart disease of [place] coronary artery with other forms of angina pectoris I25.118 Acute exacerbation of CHF (congestive heart failure) I50.9 Non-ischemic cardiomyopathy I42.8 NSTEMI (non-ST elevated myocardial infarction) I21.4
== END 2024-10-11 16:16 | disposition home or self-care (01) | DRG 321 ==
LOC: ER 15:02 → CSU 16:34
PROVIDERS: Emergency Medicine; Internal Medicine; Internal Medicine Cardiovascular Disease; Nurse Practitioner Family; Admitting Provider Internal Medicine; Emergency Provider Family Medicine; PCP Family Medicine; Visit Provider Student in an Organized Health Care Education/Training Program
PROC: 027034Z Dilation of Coronary Artery, One Artery with Drug-eluting Intraluminal Device, Percutaneous Approach (ICD-10-PCS; principal; 2024-10-08 08:00)
PROC: 027034Z Dilation of Coronary Artery, One Artery with Drug-eluting Intraluminal Device, Percutaneous Approach (ICD-10-PCS; 2024-10-08 08:00)
PROC: B211YZZ Fluoroscopy of Multiple Coronary Arteries using Other Contrast (ICD-10-PCS; principal; 2024-10-11 06:00)
DX: I13.0 Hypertensive heart and chronic kidney disease with heart failure and stage 1 through stage 4 chronic kidney disease, or unspecified chronic kidney disease (principal); I21.4 Non-ST elevation (NSTEMI) myocardial infarction; I50.23 Acute on chronic systolic (congestive) heart failure; N17.9 Acute kidney failure, unspecified; B02.29 Other postherpetic nervous system involvement; N18.31 Chronic kidney disease, stage 3a; I48.0 Paroxysmal atrial fibrillation; I42.8 Other cardiomyopathies; E78.2 Mixed hyperlipidemia; I27.20 Pulmonary hypertension, unspecified; F32.A Depression, unspecified; F41.9 Anxiety disorder, unspecified; F17.220 Nicotine dependence, chewing tobacco, uncomplicated; G47.33 Obstructive sleep apnea (adult) (pediatric); Z79.02 Long term (current) use of antithrombotics/antiplatelets; Z79.82 Long term (current) use of aspirin; Z79.01 Long term (current) use of anticoagulants
CPT/HCPCS: 36415; 36416; 71045; 78014; 80048; 80053; 80162; 82962; 83735; 83880; 84100; 84484; 85025; 85049; 85347; 85378; 85610; 85730; 92978; 93005; 93308; 93454; 93571; 93970; 94660; 94760; 96372; 96374; 99152; 99153; 99285; A9540; A9567; C1725; C1753; C1760; C1769; C1874; C1887; C1894; C9600; G0269; J1644; J1650; J1938; J2250; J2270; J2405; J3010; J3490; J7030; J9999; Q0163; Q9967

== ENCOUNTER → 2024-10-26 14:43 | Outpatient (BNVA) | payer BC, SELFPAY | PROVIDERS: PCP Family Medicine; Visit Provider Nurse Practitioner Family | DX: I48.0 Paroxysmal atrial fibrillation (principal) | CPT/HCPCS: 36415; 80053; 85025 ==

== ENCOUNTER → 2024-11-23 15:42 | Outpatient (BNVA) | payer BC, SELFPAY | PROVIDERS: PCP Family Medicine; Visit Provider Nurse Practitioner Family | DX: I10 Essential (primary) hypertension (principal) | CPT/HCPCS: 80048 ==

== ENCOUNTER 2025-01-02 08:28 | Emergency (ER) | payer BC, SELFPAY ==
--- NOTE | 2025-01-02 08:30 | XR_ITS ---
WS: [id number] Exam: XR chest 1V portable [id number] Date/Time of Exam: 01/02/2025 8:30 AM Reason For Exam: sob Comparison 10/05/2024. The lungs are fully inflated and clear. Mild chronic changes. 12 mm soft tissue nodule superimposes the LEFT diaphragm. Normal cardiomediastinal silhouette for technique. Bony structures are intact. XR/XR chest 1V portable [id number] IMPRESSION: 1. No acute process identified. Chronic changes. 2. 12 mm soft tissue nodule seen in the LEFT lung base. Pulmonary nodule not ex cluded but this is most likely a nipple shadow. A repeat study with nipple lolis ers could be considered for further evaluation.
[2025-01-02 08:36] VITALS: BP 131/78; PULSE 83; RESP 18; TEMP 36.8; O2SAT 96; BMI 30.2
--- OUTSIDE RECORDS SUMMARY | 2025-01-02 08:39 | XMS_ITS | Encounter Summary ---
Author Organization [facility] Address [address] [place] [address] Care Team Providers Care Washcoat Wiper Name Role Phone Sumi Oliver MD Primary Care Provider Encounter Details Date Type Department Care Team (Latest Contact Info) Description 04/24/2006 Outpatient Historical [facility] Family Medicine- [address] [place] [phone] Jeanna Agee MD NO ADDRESS ON FILE Unspecified Essential Hypertension (Primary Dx); Mixed Hyperlipidemia Social History Tobacco Use Types Packs/Day Years Used Date Smoking Tobacco: Never Assessed Sex and Gender Information Value Date Recorded Sex Assigned at Not on file 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
--- OUTSIDE RECORDS SUMMARY | 2025-01-02 08:39 | XMS_ITS | Encounter Summary ---
Author Organization [facility] Address [address] [place] [address] Care Team Providers Care Oil Spraying Machine Operator Name Role Phone Sumi Oliver MD Primary Care Provider Encounter Details Date Type Department Care Team (Latest Contact Info) Description 05/08/2006 Outpatient Historical [facility] Family Medicine- [place] [address] [place] [address] Jeanna Agee MD NO ADDRESS ON FILE Unspecified Essential Hypertension (Primary Dx); Unspecified Sleep Apnea Social History Tobacco Use Types Packs/Day Years Used Date Smoking Tobacco: Never Assessed Sex and Gender Information Value Date Recorded Sex Assigned at Not on file 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
--- OUTSIDE RECORDS SUMMARY | 2025-01-02 08:39 | XMS_ITS | Encounter Summary ---
Author Organization [facility] Address [address] [place] [facility] [place] [address] Care Team Providers Care Core Fitter Name Role Phone Sumi Oliver MD Primary Care Provider [phone] Encounter Details Date Type Department Care Team (Latest Contact Info) Description 06/05/2000 Outpatient Historical [facility] Family Medicine [address] [phone] Uri Burleson DO NO ADDRESS ON FILE Dizziness and giddiness (Primary Dx) Social History Tobacco Use Types Packs/Day Years Used Date Smoking Tobacco: Never Assessed Sex and Gender Information Value Date Recorded Sex Assigned at Not on file Legal Sex Male 5:47 AM CHANGE LEAD Gender Identity Not on file Sexual Orientation Not on file documented as of this encounter Plan of Treatment Not on file documented as of this encounter Visit Diagnoses Diagnosis Dizziness and giddiness- Primary documented in this encounter Care Teams Core Fitter Relationship Specialty Start Date End Date Sumi Oliver MD [address] [phone] PCP - General Family Practice 04/09/20 documented as of this encounter
--- OUTSIDE RECORDS SUMMARY | 2025-01-02 08:39 | XMS_ITS | Clinical Summary ---
Author Organization [facility] Address [address] [place] [address] Care Team Providers Care Hat Cleaner Name Role Phone Sumi Oliver MD Primary [...] on file Legal Sex Male 5:47 AM GIFT WRAPPER Gender Identity Not on file Sexual Orientation Not on file Occupation Industry Job Start Date Job End Date Not on file Not on file Not on file Not on file Last Filed Vital Signs Vital Sign Reading Time Taken Comments Blood Pressure 158/92 05/03/2020 1:24 PM GIFT WRAPPER Pulse 96 05/03/2020 1:24 PM GIFT WRAPPER Temperature 36.7 C (98 F) 05/03/2020 1:24 PM GIFT WRAPPER Respiratory Rate 20 05/03/2020 1:24 PM GIFT WRAPPER Oxygen Saturation 98% 05/03/2020 1:24 PM GIFT WRAPPER Inhaled Oxygen Concentration - - Weight 116.5 kg (256 lb 12.8 oz) 05/03/2020 1:24 PM GIFT WRAPPER Height 180.3 cm (5' 11 ) 05/03/2020 1:24 PM GIFT WRAPPER Body Mass Index 35.82 05/03/2020 1:24 PM GIFT WRAPPER Plan of Treatment Health Maintenance Due Date Last Done Comments Pre-Diabetes and Diabetes Screening 1960 DTAP/TDAP/TD VACCINES (1 - Tdap) 02/15/1980 COLORECTAL SCREENING 2006 Colorectal Cancer Screening 2006 FIT-DNA Q 3 years 2006 FIT/FOBT Q 1 year 2006 Flex Sig/CT Colonography Q 5 years 2006 ZOSTER VACCINE (1 of 2) 2011 Preventative Visit- Commercial 03/09/2024 INFLUENZA VACCINE (#1) 2024 , 03/23/2019, 07/23/2018 RSV VACCINE (60+ or ) (1 - 1-dose 75+ series) 02/15/2036 Insurance BC Care Teams Hat Cleaner Relationship Specialty Start Date End Date Sumi Oliver MD [address] [phone] PCP - General Family Practice 04/09/20
--- OUTSIDE RECORDS SUMMARY | 2025-01-02 08:39 | XMS_ITS | Encounter Summary ---
Author Organization [facility] Address [address] [facility] [place] [address] Care Team Providers Care Tissue Specialist Name Role Phone Sumi Oliver MD Primary Care Provider Encounter Details Date Type Department Care Team (Latest Contact Info) Description 06/02/2000 Outpatient Historical [facility] Family Medicine- [address] [place], [place] [phone] Uri Burleson, NO ADDRESS ON FILE Dizziness and giddiness (Primary Dx); Labyrinthitis, unspecified Social History Tobacco Use Types Packs/Day Years Used Date Smoking Tobacco: Never Assessed Sex and Gender Information Value Date Recorded Sex Assigned at Not on file Legal Sex Male 5:47 AM COMMUNITY COORDINATOR Gender Identity Not on file Sexual Orientation Not on file documented as of this encounter Plan of Treatment Not on file documented as of this encounter Visit Diagnoses Diagnosis Dizziness and giddiness- Primary Labyrinthitis, unspecified documented in this encounter Care Teams Tissue Specialist Relationship Specialty Start Date End Date Sumi Oliver MD [address] [facility] [address] [place] [address] PCP - General Family Practice 04/09/20 documented as of this encounter
--- OUTSIDE RECORDS SUMMARY | 2025-01-02 08:39 | XMS_ITS | Encounter Summary ---
Author Organization [facility] Address [address] [place] [address] Care Team Providers Care Casting Wheel Operator Name Role Phone Sumi Oliver MD Primary Care Provider Encounter Details Date Type Department Care Team (Latest Contact Info) Description 06/01/2006 Outpatient Historical [facility] Family Medicine- [address] [place] [phone] Jeanna Agee MD NO ADDRESS ON FILE Unspecified Essential Hypertension (Primary Dx); Unspecified Sleep Apnea Social History Tobacco Use Types Packs/Day Years Used Date Smoking Tobacco: Never Assessed Sex and Gender Information Value Date Recorded Sex Assigned at Not on file Legal Sex Male 5:47 AM 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
--- OUTSIDE RECORDS SUMMARY | 2025-01-02 08:39 | XMS_ITS | Encounter Summary ---
Author Organization [facility] Address [address] [place] [address] Care Team Providers Care Juice Scaleman Name Role Phone Sumi Oliver MD Primary Care Provider Encounter Details Date Type Department Care Team (Latest Contact Info) Description 06/08/1998 Outpatient Historical [facility] Family Medicine- [place] [address] [place] [phone] Mayra Cherry NO ADDRESS ON FILE Pneumonia, organism unspecified(486) (Primary Dx) Social History Tobacco Use Types Packs/Day Years Used Date Smoking Tobacco: Never Assessed Sex and Gender Information Value Date Recorded Sex Assigned at Not on file Legal Sex Male 5:47 AM WELFARE ANALYST Gender Identity Not on file Sexual Orientation Not on file documented as of this encounter Plan of Treatment Not on file documented as of this encounter Visit Diagnoses Diagnosis Pneumonia, organism unspecified(486)- Primary Pneumonia, organism unspecified documented in this encounter Care Teams Juice Scaleman Relationship Specialty Start Date End Date Sumi Oliver MD [address] [phone] PCP - General Family Practice 04/09/20 documented as of this encounter
--- OUTSIDE RECORDS SUMMARY | 2025-01-02 08:39 | XMS_ITS | Encounter Summary ---
Author Organization [facility] Address [address] [place] [address] Care Team Providers Care Firer Glost Kiln Name Role Phone Francis Elmore MD Primary Care Provider [phone] Reason for Visit * Reason Onset Date Comments [facility] Approved 12/28/2024 Encounter Details Date Type Department Care Team (Late st Contact Info) Description 12/28/2024 Telephone [facility] [address] [facility] [address] [place] [phone] Juli Pinto MD [address] [facility] [address] [place] [phone] [facility] Approved Social History Tobacco Use Types Packs/Day Years Used Date Smoking Tobacco: Never Smokeless Tobacco: Current Comments:Quit smoking: one c an q 1.5 days x 33 yrs Alcohol Use Standard Drinks/Week Comments Yes 1.7 (1 standard drink = 0.6 oz p ure alcohol) Sex and Gender Information Value Date Recorded Sex Assigned at Not on file Legal Sex Male 3:09 PM BIOGEOGRAPHER Gender Identity Not on file Sexual Orientation Not on file documented as of this encounter Miscellaneous Notes * Telephone Encounter - Jacki Toledo - 12/28/2024 2:37 PM CDT Provider: Blair Stuart: yaniv miller - [phone] MESSAGE US [facility] 12/28 - 03/27/25 with auth of [id number]. Thank you. Jacki Toledo, [facility] Cardiology [facility], Advanced PSR documented in this encounter Plan of Treatment Upcoming Encounters Date Type Department Care Team (Late st Contact Info) Description 01/09/2025 2:45 PM BIOGEOGRAPHER Appointment [facility] [address] [facility] [address] [place] [address] Juli Pinto MD [address] [place] [phone] 01/26/2025 2:40 PM BIOGEOGRAPHER Office Visit [facility] [address] [place] [phone] Juli Pinto MD [address] [place] [phone] Ghislaine Day NP [address], [address] [place] [phone] 06/09/2025 2:00 PM CDT Office Visit [facility] Family Medicine [place] [address] [phone] Ghislaine Aguilar FNP [address] [phone] documented as of this encounter Goals Goal Patient Goal Type Associated Problems Recent Progress Patient-Stated? Author Heart Failure Goal Care Plan Heart Failure Problem No Francis Elmore MD documented as of this encounter Visit Diagnoses Not on filedocumented in this encounter Additional Health Concerns Active Problems Noted Date Diagnosed Date Heart Failure Problem 12/09/2024 documented as of this encounter Care Teams Firer Glost Kiln Relationship Specialty Start Date End Date Francis Elmore MD [address] [phone] PCP - General Family Practice 04/04/21 documented as of this encounter
--- OUTSIDE RECORDS SUMMARY | 2025-01-02 08:39 | XMS_ITS | Encounter Summary ---
Author Organization [facility] Address [address] [facility] [place] [address] Care Team Providers Care Campaign Management Senior Manager Name Role Phone Sumi Oliver MD Primary Care Provider Encounter Details Date Type Department Care Team (Latest Contact Info) Description 06/08/2001 Outpatient Historical [facility] Family Medicine- [place] [address] [place], [place] [address] Uri Burleson DO NO ADDRESS ON FILE ALLERGY, UNSPECIFIED (Primary Dx); DYSPHAGIA Social History Tobacco Use Types Packs/Day Years Used Date Smoking Tobacco: Never Assessed Sex and Gender Information Value Date Recorded Sex Assigned at Not on file Legal Sex Male 5:47 AM PENETRATION TESTER Gender Identity Not on file Sexual Orientation Not on file documented as of this encounter Plan of Treatment Not on file documented as of this encounter Visit Diagnoses Diagnosis Allergy, unspecified not elsewhere classified- Primary Dysphagia documented in this encounter Care Teams Campaign Management Senior Manager Relationship Specialty Start Date End Date Sumi Oliver MD [address] [facility] [address] [place] [phone] PCP - General Family Practice 04/09/20 documented as of this encounter
--- NOTE | 2025-01-02 08:40 | ECG_ITS ---
[facility]: 2025-01-02 Pat Name: Colin Moya Department: Room: Gender: Male Autocutter: : 1960 Requested By: Anita Sena Order Number: [id number] Reading MD: Measurements Intervals [place] Rate: 82 P: 0 [place]: 0 QRS: -45 QRSD: 209 T: 104 QT: 469 QTc: 551 Interpretive Statements ATRIAL FIBRILLATION LEFT AXIS DEVIATION [QRS AXIS < -30] LEFT BUNDLE BRANCH BLOCK [120+ ms QRS DURATION, 80+ ms Q/S IN V1/V2, 85+ ms R IN I/aVL/V5/V6] [email or web address] [email or web address]
--- OUTSIDE RECORDS SUMMARY | 2025-01-02 08:40 | XMS_ITS | Encounter Summary ---
Author Organization [facility] Address [address] [place] [address] Care Team Providers Care Corn Chip Maker Name Role Phone Sumi Oliver MD Primary Care Provider Encounter Details Date Type Department Care Team (Latest Contact Info) Description 10/30/2006 Outpatient Historical [facility] Family Medicine- [address] [place] [phone] Jeanna Agee MD NO ADDRESS ON FILE Sprain and Strain of Unspecified Site of Elbow and Forearm (Primary Dx) Social History Tobacco Use Types Packs/Day Years Used Date Smoking Tobacco: Never Assessed Sex and Gender Information Value Date Recorded Sex Assigned at Not on file Legal Sex Male 5:47 AM ONLINE COMMUNICATIONS MANAGER Gender Identity Not on file Sexual Orientation Not on file documented as of this encounter Plan of Treatment Not on file documented as of this encounter Visit Diagnoses Diagnosis Sprain and strain of unspecified site of elbow and forearm- Primary documented in this encounter Care Teams Corn Chip Maker Relationship Specialty Start Date End Date Sumi Oliver MD [address] [facility] [address] [place] [address] PCP - General Family Practice 04/09/20 documented as of this encounter
--- OUTSIDE RECORDS SUMMARY | 2025-01-02 08:40 | XMS_ITS | Encounter Summary ---
Author Organization [facility] Address [address] [place] [address] Care Team Providers Care Auto Bumper Straightener Name Role Phone Sumi Oliver MD Primary Care Provider Encounter Details Date Type Department Care Team (Latest Contact Info) Description 06/22/2001 Outpatient Historical [facility] Family Medicine- [address] [place], [place] [address] Uri Burleson, NO ADDRESS ON FILE HYPERTENSION NOS (Primary Dx); ALLERGY, UNSPECIFIED Social History Tobacco Use Types Packs/Day Years Used Date Smoking Tobacco: Never Assessed Sex and Gender Information Value Date Recorded Sex Assigned at Not on file Legal Sex Male 5:47 AM TIE LOADER Gender Identity Not on file Sexual Orientation Not on file documented as of this encounter Plan of Treatment Not on file documented as of this encounter Visit Diagnoses Diagnosis Unspecified essential hypertension- Primary Allergy, unspecified not elsewhere classified documented in this encounter Care Teams Auto Bumper Straightener Relationship Specialty Start Date End Date Sumi Oliver MD [address] [phone] PCP - General Family Practice 04/09/20 documented as of this encounter
--- OUTSIDE RECORDS SUMMARY | 2025-01-02 08:40 | XMS_ITS | Encounter Summary ---
Author Organization [facility] Address [address] [facility] [place] [address] Care Team Providers Care Personal Injury Law Specialist Name Role Phone Sumi Oliver MD Primary Care Provider Encounter Details Date Type Department Care Team (Latest Contact Info) Description 04/17/2006 Outpatient Historical [facility] Family Medicine- [address] [place] [phone] Jeanna Agee MD NO ADDRESS ON FILE Other Alteration of Consciousness (Primary Dx); Elevated Blood Pressure Reading without Diagnosis of Hypertension Social History Tobacco Use Types Packs/Day Years Used Date Smoking Tobacco: Never Assessed Sex and Gender Information Value Date Recorded Sex Assigned at Not on file Legal Sex Male 5:47 AM GETTER OPERATOR Gender Identity Not on file Sexual Orientation Not on file documented as of this encounter Plan of Treatment Not on file documented as of this encounter Visit Diagnoses Diagnosis Other alteration of consciousness- Primary Elevated blood pressure reading without diagnosis of hypertension documented in this encounter Care Teams Personal Injury Law Specialist Relationship Specialty Start Date End Date Sumi Oliver MD [address] [facility] [address] [place] [address] PCP - General Family Practice 04/09/20 documented as of this encounter
--- OUTSIDE RECORDS SUMMARY | 2025-01-02 08:40 | XMS_ITS | Clinical Summary ---
Author Organization [facility] Address [address] [facility] Attn: Epic Prelude ADT [place], [place] [address] Care Team Providers Care Emissions Inspector Name Role Phone Francis Elmore MD Primary Care Provider [phone] Allergies Active Allergy Reactions Criticality Noted Date Comments Rosuvastatin Nausea and Vomiting Low 09/15/2024 Simvastatin Nausea and Vomiting Low 04/07/2011 Medications OTHER OTC allergy med prn . Active CPAP / BIPAP suppliesIndicati ons:Other sleep apnea Length of need: 99 monthsMask [...] 125 mcg (0.125 mg) tablet 023 Active amiodarone (CORDARONE) 200 mg tablet TAKE 1 TABLET BY MOUTH TWICE DAILY FOR 7 DAYS. THEN TAKE 1 TABLET BY MOUTH ONCE A DAY. 025 Active bumetanide (BUMEX) 1 mg tablet 2 times daily. 025 Active metoprolol tartrate (LOPRESSOR) 25 mg tablet [...] Active evolocumab (Repatha SureClick) 140 mg/mL Pen InjectorIndicati ons:Arterioscler otic cardiovascular disease,Allergy to statin medication Inject 1 mL (140 mg) by subcutaneous injection every 2 weeks. 6 mL 3 Active dilTIAZem (CARDIZEM CD, CARTIA XT) 120 mg Controlled Delivery 24 hour capsule Active isosorbide mononitrate (IMDUR) 30 mg Extended Release 24 hour tablet Take 30 mg by mouth daily in the morning. Active Entresto 24-26 mg Tablet Take 0.5 Tablets by mouth 2 times daily. Active Jardiance 10 mg tablet Take 1 Tablet by mouth daily. Active DULoxetine (CYMBALTA) 60 mg Capsule, Delayed Release(E.C.)Ind ications:Shingle s (herpes zoster) polyneuropathy Take 1 Capsule (60 mg) by mouth daily at bedtime. 100 Capsule 3 Active hydrocortisone acetate (ANUSOL-HC) 25 mg Suppository Insert 1 Suppository (25 mg) by rectum 2 times daily as needed for Itching or Discomfort. 24 Suppository 5 025 Active Proctocort 1 % Cream Apply to affected area 2 times daily. 56 Gram 1 Active DULoxetine (CYMBALTA) 60 mg Capsule, Delayed Release(E.C.)Ind ications:Shingle s (herpes zoster) polyneuropathy TAKE 1 CAPSULE BY MOUTH ONCE DAILY . NEEDS APPOINTMENT/LA BS PRIOR TO REFILLS 100 Capsule 3 024 2024 Discontinued( Reorder) aspirin (ECOTRIN EC) 81 mg Tablet, Delayed Release (E.C.) Take 1 Tablet (81 mg) by mouth daily. 100 Tablet 3 025 2024 Discontinued( Alternate therapy prescribed) Lidocaine-Hydroc ortisone Ac 3-2.5 % (7 gram) KitIndications:E xternal hemorrhoids Insert 1 Application by rectum 1 time daily as needed for Other (See Comment) (Rectal pain). 1 Kit 11 025 2024 Discontinued Lidocaine-Hydroc ortisone Ac 3-0.5 % Cream by See Admin Instructions route 2 times daily as needed for Other (See Comment) (Rectal pain). Apply rectally twice daily as needed for rectal pain 85 Gram 5 025 2024 Discontinued Active Problems Problem Noted Date Diagnosed Date Atherosclerosis of [place] co ronary artery of [place] heart with stable angina pectoris 12/08/2024 Chronic systolic congestive heart failure 2024 Statin myopathy 12/08/2024 H/O heart artery stent 10/05/2024 Paroxysmal atrial fibrillation 12/04/2021 Obstructive sleep apnea 09/19/2016 Shingles (herpes zoster) polyneuropathy 02/05/20 16 Tobacco use 06/21/2015 Allergic rhinitis 07/18/2011 Hyperlipidemia 12/24/2007 HTN (hypertension) 12/24/2007 Overview (07/04/2020): Updating IMO/ICD9 Code and Description Encounters Date Type Department Care Team Description 12/28/2024 [facility] [address] [facility] [address] [place] [address] Juli Pinto MD [facility] Approved 12/22/[address] [phone] Francis Elmore MD Medication Review 12/21/2024 Orders Only [address] [phone] Francis Elmore MD 12/14/[address] [phone] Francis Elmore MD Medication Review 12/13/2024 External Device Data STL ABSTRACTION Provider, Abstract 12/13/2024 External Device Data STL ABSTRACTION Provider, Abstract 12/13/2024 External Device Data STL ABSTRACTION Provider, Abstract 12/13/2024 External Device Data STL ABSTRACTION Provider, Abstract 12/09/2024 Orders Only [address] [phone] Francis Elmore MD 12/08/2024 4:00 PM CDT Office Visit [address] [phone] Francis Elmore MD Atherosclerosis of [place] coronary artery of [place] heart with stable angina pectoris (Primary Dx); Shingles (herpes zoster) polyneuropathy; Chronic systolic congestive heart failure; Obstructive sleep apnea; Statin myopathy; External hemorrhoids 12/06/2024 External Device Data STL ABSTRACTION Provider, Abstract 11/09/2024 External Device Data STL ABSTRACTION Provider, Abstract 10/31/2024 Telephone [place] [address] [place] [phone] Juli Pinto MD Needs sooner appointment 10/18/2024 9:20 AM CDT Office Visit [place] [address] [place] [phone] Juli Pinto MD Stillwell, Crystal, NP Paroxysmal atrial fibrillation (CMS/HCC) (Primary Dx); Cardiomyopathy, unspecified type (CMS/HCC) 10/17/2024 Abstract [place] [address] [place] [phone] Provider, Abstract 10/12/2024 Orders Only [place] [address] [place] [phone] Ghislaine Day NP Paroxysmal atrial fibrillation (CMS/HCC) (Primary Dx); H/O heart artery stent 10/06/2024 Orders Only [facility] [address] [place] [phone] Provider, Abstract 10/06/[address] [phone] Francis Elmore MD 10/05/2024 11:40 AM CDT Office Visit [address] [phone] Fidelia Sahu, NICOLE Mixed hyperlipidemia (Primary Dx); Primary hypertension; Tobacco use; H/O heart artery stent; Hypoxia 10/04/2024 Nurse Triage [address] [phone] Francis Elmore MD from Last 3 Months Immunizations Immunization Administration Dates Next Due INFLUENZA VACCINE QUADRIVALENT 6 MOS UP PF IM INFLUENZA VACCINE TRIVALENT SPLIT VIRUS, (6 MOS UP), 0.5ML (PF), IM 12/08/2024 Social History Tobacco Use Types Packs/Day Years [...] on file Legal Sex Male 3:09 PM LINING PARTS SEWER Gender Identity Not on file Sexual Orientation Not on file Last Filed Vital Signs Vital Sign Reading Time Taken Comments Blood Pressure 130/78 12/08/2024 4:07 PM CDT Pulse 76 12/08/2024 4:07 PM CDT Temperature 36.3 C (97.4 F) 12/08/2024 4:07 PM CDT Respiratory Rate 16 12/08/2024 4:07 PM CDT Oxygen Saturation 97% 12/08/2024 4:07 PM CDT Inhaled Oxygen Concentration - - Weight 104.8 kg (231 lb) 12/08/2024 4:07 PM CDT Height 180.3 cm (5' 11 ) 12/08/2024 4:07 PM CDT Body Mass Index 32.22 12/08/2024 4:07 PM CDT Plan of Treatment Upcoming Encounters Date Type Department Care Team (Late st Contact Info) Description 01/09/2025 2:45 PM LINING PARTS SEWER Appointment [facility] Ultrasound [place] [address] [phone] Juli Pinto MD [address] [place] [address] 01/26/2025 2:40 PM LINING PARTS SEWER Office Visit [facility] [address] [place] [address] Juli Pinto MD [address] [place] [phone] Ghisaline Day NP [address] [place] [address] 06/09/2025 2:00 PM CDT Office Visit [facility] Family Medicine [place] [address] [phone] Ghislaine Aguilar, [facility] [address] [phone] Health Maintenance Due Date Last Done Comments Pre-Diabetes and Diabetes Screening 1961 DTAP/TDAP/TD VACCINES (1 - Tdap) 02/15/1980 COLORECTAL SCREENING 2006 Colorectal Cancer Screening 2006 FIT-DNA Q 3 years 2006 FIT/FOBT Q 1 year 2006 Flex Sig/CT Colonography Q 5 years 2006 RSV VACCINE (60+ or ) (1 - Risk 50-74 years 1-dose series) 2011 ZOSTER VACCINE (1 of 2) 2011 Preventative Visit- Commercial 03/09/2024 COVID-19 Vaccine (3 - 2024-2 6 season) 2024 01/11/2021, 05/04/2020 INFLUENZA VACCINE Completed 12/08/2024, , 05/03/2020, Additional history exists Goals Goal Patient Goal Type Associated Problems Recent Progress Patient-Stated? Author Heart Failure Goal Care Plan Heart Failure Problem No Francis Elmore MD Procedures Procedure Name Priority Date/Time Associated Diagnosis Comments COMPREHENSIVE METABOLIC PANEL Routine 10/26/2024 11:29 AM CDT AR ECG ROUTINE ECG W/LEAST 12 LDS W/I&R Routine 10/18/2024 9:52 AM CDT Paroxysmal atrial fibrillation (CMS/HCC) H/O heart artery stent EKG 12-LEAD Routine 10/11/2024 ECHO LIMITED Routine 10/07/2024 COMPREHENSIVE METABOLIC PANEL Routine 10/05/2024 10:13 AM CDT PROTIME-INR Routine 10/05/2024 from Last 3 Months Results * COMPREHENSIVE METABOLIC PANEL (10/26/2024 11:29 AM CDT) Only the most recent of2 resultswithin the time period is included. Blood us Abstract Provider CHEMISTRY ORDERABLES Final Res ult * AR ECG ROUTINE ECG W/LEAST 12 LDS W/I&R (10/18/2024 9:52 AM CDT) Only the most recent of2 resultswithin the time period is included. Narrative [facility] - 10/18/2024 9:52 AM CDT Ghislaine Day NP 10/23/2024 9:05 PM 12 Lead EKG: Rhythm: Afib, ventricular rate 69 bpm, AR interval ms, QRS duration 166 ms, QTc 550 ms Procedure Note Ghislaine Day NP - 10/18/2024 9:52 AM CDT 12 Lead EKG: Rhythm: Afib, ventricular rate 69 bpm, AR interval ms, QRSduration 166 ms, QTc 550 ms us Ghislaine Day OUTLET MANAGER ECG ORDERABLES Final Resul t [facility]ARDIOLOG[facility] [id number] [address] [place] [address], [place] [phone] * (ABNORMAL) ECHO LIMITED (10/07/2024) EJECTION FRACTION 20(A) 50 - 65 % us Marichuy Thomas [employer]AY [employer]ER ECHO ORDERABLES Final Res ult * PROTIME-INR (10/05/2024) ABSTRACTED PROTIME 17.6 ABSTRACTED INR 1.36 Blood 10/05/2024 us Abstract Provider HEMATOLOGY ORDERABLES Final Re sult from Last 3 Months Additional Health Concerns Active Problems Noted Date Diagnosed Date Heart Failure Problem 12/09/2024 Insurance [facility] BLUE PREFERRED Care Teams Emissions Inspector Relationship Specialty Start Date End Date Francis Elmore MD [address] [facility] [address] [place] [phone] PCP - General Family Practice 04/04/21
--- NOTE | 2025-01-02 08:42 | W.ED.SOB ---
HPI - SOB/Dyspnea General: Chief Complaint: Shortness of Breath/Dyspnea Stated Complaint: sob, fluid buildup on legs Time Seen by Provider: 01/02/25 08:29 Source: patient Mode of arrival: ambulatory Limitations: no limitations History of Present Illness: HPI Narrative: 64-year-old male has a history of CHF. Patient on Bumex at home states that he has been having some slight increase shortness of breath along with leg swelling over the last 4 to 5 days. He denies any chest pain he denies any fever. He is in no distress here at this time Related Data Home Medications ?Medication ?Instructions ?Recorded ?Confirmed duloxetine 60 mg capsule,delayed 60 mg PO DAILY 12/25/21 10/26/24 release evolocumab 140 mg/mL subcutaneous 140 mg SUBCUT Q14D 10/05/24 10/26/24 pen injector (Emma Fajardo) Previous Rx's ?Medication ?Instructions ?Recorded digoxin 125 mcg (0.125 mg) tablet 125 mcg PO DAILY #90 tabs 07/11/24 clopidogrel 75 mg tablet 75 mg PO DAILY 90 days #90 tabs 08/19/24 metoprolol tartrate 25 mg tablet 25 mg PO BID@0900,2100 #180 tabs 08/25/24 potassium chloride 10 mEq 10 meq PO DAILY #90 tabs 08/25/24 tablet,extended release (Klor-Con) amiodarone 200 mg tablet (Pacerone) 200 mg PO DAILY #90 tabs 09/29/24 empagliflozin 10 mg tablet 10 mg PO DAILY #90 tabs 10/26/24 (Jardiance) isosorbide mononitrate 30 mg 15 mg (1/2 x 30 mg) PO QAM #90 tabs 10/26/24 tablet,extended release 24 hr bumetanide 1 mg tablet See Rx Instructions .Route 11/14/24 .COMPLEX #90 tabs sacubitril 24 mg-valsartan 26 mg 0.5 tab PO BID #60 tabs 11/28/24 tablet (Entresto) apixaban 5 mg tablet (Eliquis) See Rx Instructions .Route 12/20/24 .COMPLEX #180 tabs Allergies Allergy/AdvReac Type Severity Reaction Status Date / Time simvastatin Allergy Severe N/V Verified 10/26/24 13:47 Review of Systems Resp: Reports: dyspnea PFSH ED PFSH: Medical History Pulmonary hypertension Atrial fibrillation with rapid ventricular response Acute exacerbation of CHF (congestive heart failure) Obstructive sleep apnea SOBOE (shortness of breath on exertion) Postherpetic neuralgia Tobacco use Exercise intolerance Allergic rhinitis Shingles Hypertension Paroxysmal atrial fibrillation Labile blood pressure Dyspnea Hyperlipidemia GIA on CPAP Dizziness Chest discomfort Surgical History No history of previous surgery Family History Father CAD (coronary artery disease) Stroke, Onset Age: 35 Grandmother Cancer Mother Stroke Sister Stroke Denies family history of Diabetes Clotting disorder Dementia Chronic kidney disease (CKD) Suicide Anesthesia complication Bleeding disorder Lung disease Social History Smoking and tobacco/nicotine status: former use of tobacco/nicotine Alcohol intake: current Alcohol intake frequency: few times a month Substance/Drug Use: never Physical Exam Const: COMMON NORMALS: patient oriented x3 HENMT: COMMON NORMALS: normocephalic and atraumatic HEAD & SCALP: normocephalic and atraumatic Neck/C-Spine: COMMON NORMALS: full ROM and supple Chest: COMMONS NORMALS: normal inspection of the chest and normal palpation of entire chest wall Resp: COMMON NORMALS: normal respiratory effort, No retractions, No use of accessory muscles and clear to auscultation bilaterally AUSCULTATION: clear to auscultation bilaterally Cardio: COMMON NORMALS: regular rate, regular rhythm and No murmurs present (Cardio) RATE: regular rate RHYTHM: regular rhythm GI: COMMON NORMALS: Normal to inspection, nondistended, normoactive bowel sounds present, Soft to palpation, non-tender and no masses PALPATION: Yes Soft to palpation Extremity: COMMON NORMALS: full ROM NARRATIVE EXTREMITY EXAM: 2+ edema to lower extremity Neuro: COMMON NORMALS: patient oriented x3, moves all extremities and no focal motor deficits Psych: COMMON NORMALS: mental status grossly normal, Normal thought process present and cooperative THOUGHT PROCESS: Normal thought process present Skin: COMMON NORMALS: no rashes or lesions noted and no wounds GENERAL SKIN EXAM: no rashes or lesions noted Course Vital Signs: Vital signs: Vital Signs Temperature 98.2 F 01/02/25 08:36 Pulse Rate 85 01/02/25 10:07 Respiratory Rate 18 01/02/25 08:36 Blood Pressure 124/96 01/02/25 10:07 Pulse Oximetry 96 01/02/25 10:07 Oxygen Delivery Me thod Room Air 01/02/25 09:12 MDM - SOB/Dyspnea Medical Decision Making Patient presents here with dyspnea along some lower extremity edema. Serious etiologies as pulmonary embolism, pneumothorax, pneumonia were considered. Patient has no signs of above patient is not tachycardic has no chest pain no signs of pulmonary emboli. X-ray interpreted by me showed no acute abnormalities he has no pneumonia or pneumothorax or pulmonary edema. Patient's BNP here as it is at his baseline he does have some slight lower extremity edema. Did give him IV dose of 60 mg of Lasix. His EKG here showed A-fib heart rate [address] elevation QRS 209 QTc 508. Patient's had no respiratory distress here he is not requiring any oxygen. Informed him he needs to continue his Lasix he has a follow-up with his member services coordinator Dr. Bustillos in 4 to 8 days. He is to return if worsening I did go over his labs EKG and imaging with him he understands and agrees to plan. Medical Records I reviewed the patient's medical records. Lab Data I reviewed the patient's lab results. 01/02/25 08:57 01/02/25 08:57 Labs/Radiology: Radiology Impressions Chest X-Ray 01/02/25 08:30 IMPRESSION: 1. No acute process identified. Chronic changes. 2. 12 mm soft tissue nodule seen in the LEFT lung base. Pulmonary nodule not excluded but this is most likely a nipple shadow. A repeat study with nipple markers could be considered for further evaluation. Laboratory Results WBC 6.39 10^3/uL (3.29-11.43) 01/02/25 08:57 RBC 4.56 10^6/uL (3.85-5.65) 01/02/25 08:57 Hgb 13.00 g/dL (11.27-16.99) 01/02/25 08:57 Hct 42.7 % (37-53) 01/02/25 08:57 MCV 93.6 fl (82-101) 01/02/25 08:57 MCH 28.5 pg (27-33) 01/02/25 08:57 MCHC 30.4 g/dL (30-55) 01/02/25 08:57 RDW 18.1 % (12.1-15.1) H 01/02/25 08:57 Plt Count 322 10^3/cmm (157-399) 01/02/25 08:57 MPV 9.8 fL (7.4-10.4) 01/02/25 08:57 Neut % (Auto) 73.7 % 01/02/25 08:57 Lymph % (Auto) 16.1 % 01/02/25 08:57 Wayne % (Auto) 6.3 % 01/02/25 08:57 Eos % (Auto) 1.4 % 01/02/25 08:57 Baso % (Auto) 0.6 % 01/02/25 08:57 Neut # (Auto) 4.71 10^3/uL (1.8-7.7) 01/02/25 08:57 Lymph # (Auto) 1.0 10^3/uL (0.8-4.8) 01/02/25 08:57 Wayne # (Auto) 0.4 10^3/uL (0.2-0.9) 01/02/25 08:57 Eos # (Auto) 0.1 10^3/uL (0.0-0.8) 01/02/25 08:57 Baso # (Auto) 0.0 10^3/uL (0.0-0.1) 01/02/25 08:57 Nucleated RBC % (auto) 0.3 % 01/02/25 08:57 Nucleated RBCs # 0.0 /100WBC 01/02/25 08:57 Sodium 136 mmol/L (136-145) 01/02/25 08:57 Potassium 4.0 mmol/L (3.5-5.1) 01/02/25 08:57 Chloride 94 mmol/L (98-107) L 01/02/25 08:57 Carbon Dioxide 25 mmol/L (22-29) 01/02/25 08:57 Anion Gap 21.0 (5-19) H 01/02/25 08:57 BUN 29 mg/dL (8-23) H 01/02/25 08:57 Creatinine 1.9 mg/dL (0.7-1.2) H 01/02/25 08:57 GFR Calculation 36.0 mL/min (90-130) L 01/02/25 08:57 Glucose 155 mg/dL (65-115) H 01/02/25 08:57 Calculated Osmolality 291 mOsm/kg (285-295) 01/02/25 08:57 Calcium 9.0 mg/dL (8.5-10.5) 01/02/25 08:57 Total Bilirubin 1.8 mg/dL (0.15-1.2) H 01/02/25 08:57 AST 258 U/L (0-40) H 01/02/25 08:57 ALT 625 U/L (0-41) H 01/02/25 08:57 Alkaline Phosphatase 241 U/L (40-130) H 01/02/25 08:57 NT-Pro-B Natriuret Pep 43553 pg/mL (0-125) H 01/02/25 08:57 Total Protein 6.9 g/dL (6.6-8.7) 01/02/25 08:57 Albumin 4.1 g/dL (3.5-5.2) 01/02/25 08:57 Globulin 2.8 g/dL (1.3-4.6) 01/02/25 08:57 All radiology interpretation(s) finalized by discharge EKG Data EKG 1: I personally reviewed and interpreted this EKG as follows: EKG Interpretation Date: 01/02/25 EKG interpretation time: 08:40 Interpretation: afib hr [address] elevation qrs 209 qtc 508 Discharge Plan Discharge Patient Disposition: Home Clinical Impression: Congestive heart failure, Edema of both lower legs Condition: Stable Prescriptions: No Action duloxetine 60 mg capsule,delayed release(DR/EC) 60 mg PO DAILY potassium chloride [Klor-Con 10] 10 mEq tablet extended release 10 meq PO DAILY Qty: 90 1RF metoprolol tartrate 25 mg tablet 25 mg PO BID@0900,2100 Qty: 180 3RF isosorbide mononitrate 30 mg tablet extended release 24 hr 15 mg PO QAM Qty: 90 0RF Jardiance 10 mg tablet 10 mg PO DAILY Qty: 90 0RF digoxin 125 mcg (0.125 mg) tablet 125 mcg PO DAILY Qty: 90 3RF amiodarone [Pacerone] 200 mg tablet 200 mg PO DAILY Qty: 90 0RF bumetanide 1 mg tablet See Rx Instructions .ROUTE .COMPLEX Qty: 90 2RF Dose Instruction: TAKE 2 TABLETS BY MOUTH ONCE DAILY IN THE MORNING THEN 1 ONCE DAILY AT 2PM Rx Instructions: TAKE 2 TABLETS BY MOUTH ONCE DAILY IN THE MORNING THEN 1 ONCE DAILY AT 2PM sacubitril-valsartan [Entresto] 24-26 mg tablet 0.5 tab PO BID Qty: 60 3RF Eliquis 5 mg tablet See Rx Instructions .ROUTE .COMPLEX Qty: 180 2RF Dose Instruction: Take 1 tablet by mouth twice daily Rx Instructions: Take 1 tablet by mouth twice daily clopidogrel 75 mg Tablet 75 mg PO DAILY 90 Days Qty: 90 3RF Repatha SureClick 140 mg/mL pen injector 140 mg SUBCUT Q14D Discharge Orders: Discharge ED (Routine); Ordered 01/02/25 Ordered By: Anita Sena Referrals: Francis Elmore [Primary Care Provider, Family Practice] - 4-7 days Discharge Diet: Advance as tolerated Discharge Activity: Resume usual activity Patient Instructions: Heart Failure (ED), Leg Edema (ED) Print Language: Andorran Coding Level of Care Code ED Experimental Display Builder for [employer]
[2025-01-02] MEDS: FUROsemide 10 mg/mL SDV 10mL 60 MG IVP (08:57)
[2025-01-02 09:02] LABS: Hematocrit 42.7 % (37-53); Hemoglobin 13.00 g/dL (11.27-16.99); Mean Corpuscular HGB Conc 30.4 g/dL (30-55); Mean Corpuscular Hemoglobin 28.5 pg (27-33); Mean Corpuscular Volume 93.6 fl (82-101); Nucleated Red Blood Cells % 0.3 %; Platelet Count 322 10^3/cmm (157-399); Red Blood Count 4.56 10^6/uL (3.85-5.65); White Blood Count 6.39 10^3/uL (3.29-11.43)
[2025-01-02 09:12] VITALS: BP 125/77; PULSE 77; O2SAT 98
[2025-01-02 09:33] LABS: Alanine Aminotransferase 625 U/L (0-41); Albumin Level 4.1 g/dL (3.5-5.2); Alkaline Phosphatase 241 U/L (40-130); Anion Gap 21.0 (5-19); Aspartate Amino Transferase 258 U/L (0-40); Blood Urea Nitrogen 29 mg/dL (8-23); Calcium 9.0 mg/dL (8.5-10.5); Carbon Dioxide 25 mmol/L (22-29); Chloride 94 mmol/L (98-107); Creatinine Clr Calc Pharmacy 47.5914; Globulin 2.8 g/dL (1.3-4.6); Glucose 155 mg/dL (65-115); NT Pro B Type Natriuretic Pept 11576 pg/mL (0-125); Osmolality Calculated 291 mOsm/kg (285-295); Potassium 4.0 mmol/L (3.5-5.1); Sodium 136 mmol/L (136-145); Total Protein 6.9 g/dL (6.6-8.7)
[2025-01-02 10:07] VITALS: BP 124/96; PULSE 85; O2SAT 96
== END 2025-01-02 10:08 | disposition home or self-care (01) ==
PROVIDERS: Emergency Provider Emergency Medicine; PCP Family Medicine
DX: R60.0 Localized edema (principal); E78.5 Hyperlipidemia, unspecified; I11.0 Hypertensive heart disease with heart failure; I50.9 Heart failure, unspecified; Z87.891 Personal history of nicotine dependence; Z79.01 Long term (current) use of anticoagulants; Z79.02 Long term (current) use of antithrombotics/antiplatelets
CPT/HCPCS: 36415; 71045; 80053; 83880; 85025; 93005; 96374; 99285; J1938

== ENCOUNTER 2025-01-05 20:22 | Inpatient (IN) | payer BC, SELFPAY ==
[2025-01-05 20:29] VITALS: BP 129/85; PULSE 77; RESP 17; TEMP 36.4; O2SAT 97
--- OUTSIDE RECORDS SUMMARY | 2025-01-05 20:29 | XMS_ITS | Clinical Summary ---
Author Organization [facility] Address [address] [place] [address] Care Team Providers Care Supervisor Alum Plant Name Role Phone Sumi Oliver MD Primary [...] on file Legal Sex Male 5:47 AM LINER REROLL TENDER Gender Identity Not on file Sexual Orientation Not on file Occupation Industry Job Start Date Job End Date Not on file Not on file Not on file Not on file Last Filed Vital Signs Vital Sign Reading Time Taken Comments Blood Pressure 158/92 05/03/2020 1:24 PM LINER REROLL TENDER Pulse 96 05/03/2020 1:24 PM LINER REROLL TENDER Temperature 36.7 C (98 F) 05/03/2020 1:24 PM LINER REROLL TENDER Respiratory Rate 20 05/03/2020 1:24 PM LINER REROLL TENDER Oxygen Saturation 98% 05/03/2020 1:24 PM LINER REROLL TENDER Inhaled Oxygen Concentration - - Weight 116.5 kg (256 lb 12.8 oz) 05/03/2020 1:24 PM LINER REROLL TENDER Height 180.3 cm (5' 11 ) 05/03/2020 1:24 PM LINER REROLL TENDER Body Mass Index 35.82 05/03/2020 1:24 PM LINER REROLL TENDER Plan of Treatment Health Maintenance Due Date [...] 75+ series) 02/15/2036 Insurance BC Care Teams Supervisor Alum Plant Relationship Specialty Start Date End Date Sumi Oliver MD [address] [phone] PCP - General Family Practice 04/09/20
--- OUTSIDE RECORDS SUMMARY | 2025-01-05 20:29 | XMS_ITS | Encounter Summary ---
Author Organization [facility] Address [address] [place] [address] Care Team Providers Care Esl Professor Name Role Phone Francis Elmore MD Primary Care Provider [phone] Encounter Details Date Type Department Care Team (Late st Contact Info) Description 01/02/2025 Orders Only [facility] [address] [place] [address] Provider, Abstract NO ADDRESS ON FILE Social History Tobacco Use Types Packs/Day Years Used Date Smoking Tobacco: Never Smokeless Tobacco: Current Comments:Quit smoking: one c an q 1.5 days x 33 yrs Alcohol Use Standard Drinks/Week Comments Yes 1.7 (1 standard drink = 0.6 oz p ure alcohol) Sex and Gender Information Value Date Recorded Sex Assigned at Not on file Legal Sex Male 3:09 PM TRUCK SAFETY INSPECTOR Gender Identity Not on file Sexual Orientation Not on file documented as of this encounter Plan of Treatment Upcoming Encounters Date Type Department Care Team (Late Contact Info) Description 01/09/2025 2:45 PM TRUCK SAFETY INSPECTOR Appointment [facility] [address] [place] [phone] Juli Pinto MD [address] [facility] [address] [place] [address] 01/26/2025 2:40 PM TRUCK SAFETY INSPECTOR Office Visit [facility] [address] [place] [address] Juli Pinto MD [address] [place] [address] Ghislaine Day NP [address] [place] [phone] 06/09/2025 2:00 PM CDT Office Visit [facility] [address] [phone] Ghislaine Aguilar, PIN DRAFTER [address] [phone] documented as of this encounter Goals Goal Patient Goal Type Associated Problems Recent Progress Patient-Stated? Author Heart Failure Goal Care Plan Heart Failure Problem No Francis Elmore MD documented as of this encounter Procedures Procedure Name Priority Date/Time Associated Diagnosis Comments COMPREHENSIVE METABOLIC PANEL Routine 01/02/2025 1:28 PM CDT documented in this encounter Results * COMPREHENSIVE METABOLIC PANEL (01/02/2025 1:28 PM CDT) Blood us Abstract Provider CHEMISTRY ORDERABLES Final Res ult documented in this encounter Visit Diagnoses Not on filedocumented in this encounter Additional Health Concerns Active Problems Noted Date Diagnosed Date Heart Failure Problem 12/09/2024 documented as of this encounter Care Teams Esl Professor Relationship Specialty Start Date End Date Francis Elmore MD [address] [phone] PCP - General Family Practice 04/04/21 documented as of this encounter
--- OUTSIDE RECORDS SUMMARY | 2025-01-05 20:29 | XMS_ITS | Encounter Summary ---
Author Organization [facility] Address [address] [place] [facility] [place] [place] [address] Care Team Providers Care Director Design Name Role Phone Sumi Oliver MD Primary Care Provider Encounter Details Date Type Department Care Team (Latest Contact Info) Description 06/05/2000 Outpatient Historical [facility] Family Medicine [address] [phone] Uri Burleson DO NO ADDRESS ON FILE Dizziness and giddiness (Primary Dx) Social History Tobacco Use Types Packs/Day Years Used Date Smoking Tobacco: Never Assessed Sex and Gender Information Value Date Recorded Sex Assigned at Not on file Legal 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
--- OUTSIDE RECORDS SUMMARY | 2025-01-05 20:29 | XMS_ITS | Encounter Summary ---
Author Organization [facility] Address [address] [facility] [place] [address] Care Team Providers Care Product Safety Technical Assistant Name Role Phone Sumi Oliver MD Primary Care Provider Encounter Details Date Type Department Care Team (Latest Contact Info) Description 06/01/2006 Outpatient Historical [facility] Family Medicine- [address] [place] [address] Jeanna Agee MD NO ADDRESS ON FILE Unspecified Essential Hypertension (Primary Dx); Unspecified Sleep Apnea Social History Tobacco Use Types Packs/Day Years Used Date Smoking Tobacco: Never Assessed Sex and Gender Information Value Date Recorded Sex Assigned at Not on file 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
--- OUTSIDE RECORDS SUMMARY | 2025-01-05 20:29 | XMS_ITS | Encounter Summary ---
Author Organization [facility] Address [address] [place] [address] Care Team Providers Care [employer] Principal Name Role Phone Sumi Oliver MD Primary Care Provider Encounter Details Date Type Department Care Team (Latest Contact Info) Description 10/30/2006 Outpatient Historical [facility] Family Medicine- [address] [place] [address] Jeanna Agee MD NO ADDRESS ON FILE Sprain and Strain of Unspecified Site of Elbow and Forearm (Primary Dx) Social History Tobacco Use Types Packs/Day Years Used Date Smoking Tobacco: Never Assessed Sex and Gender Information Value Date Recorded Sex Assigned at Not on file Legal 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
--- OUTSIDE RECORDS SUMMARY | 2025-01-05 20:29 | XMS_ITS | Encounter Summary ---
Author Organization [facility] Address [address] [facility] [place] [address] Care Team Providers Care Treating Inspector Name Role Phone Sumi Oliver MD Primary Care Provider Encounter Details Date Type Department Care Team (Latest Contact Info) Description 06/22/2001 Outpatient Historical [facility] Family Medicine- [address] [place], [place] [phone] Uri Burleson, NO ADDRESS ON FILE HYPERTENSION NOS (Primary Dx); ALLERGY, UNSPECIFIED Social History Tobacco Use Types Packs/Day Years Used Date Smoking Tobacco: Never Assessed Sex and Gender Information Value Date Recorded Sex Assigned at Not on file Legal Sex Male 5:47 AM PRODUCTION ADMINISTRATIVE 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
--- OUTSIDE RECORDS SUMMARY | 2025-01-05 20:29 | XMS_ITS | Encounter Summary ---
Author Organization [facility] Address [address] [facility] [place] [address] Care Team Providers Care Correspondence Specialist Name Role Phone Sumi Oliver MD Primary Care Provider Encounter Details Date Type Department Care Team (Latest Contact Info) Description 04/24/2006 Outpatient Historical [facility] Family Medicine- [address] [place] [phone] Jeanna Agee MD NO ADDRESS ON FILE Unspecified Essential Hypertension (Primary Dx); Mixed Hyperlipidemia Social History Tobacco Use Types Packs/Day Years Used Date Smoking Tobacco: Never Assessed Sex and Gender Information Value Date Recorded Sex Assigned at Not on file 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
--- OUTSIDE RECORDS SUMMARY | 2025-01-05 20:29 | XMS_ITS | Encounter Summary ---
Author Organization [facility] Address [address] [place] [address] Care Team Providers Care Greige Goods Inspector Name Role Phone Francis Elmore MD Primary Care Provider [phone] Reason for Visit * Reason Onset Date Comments [facility] asking for the Nurse to call 01/05/2025 Question 01/05/2025 Encounter Details Date Type Department Care Team (Late st Contact Info) Description 01/05/2025 Telephone [facility] [address] [facility] [address] [place] [phone] Juli Pinto MD [address] [facility] [address] [place] [phone] [facility] asking for the Nurse to call; Question Social History Tobacco Use Types Packs/Day Years Used Date Smoking Tobacco: Never Smokeless Tobacco: Current Comments:Quit smoking: one c an q 1.5 days x 33 yrs Alcohol Use Standard Drinks/Week Comments Yes 1.7 (1 standard drink = 0.6 oz p ure alcohol) Sex and Gender Information Value Date Recorded Sex Assigned at Not on file Legal Sex Male 3:09 PM CHARGE ACCOUNT AUTHORIZER Gender Identity Not on file Sexual Orientation Not on file documented as of this encounter Miscellaneous Notes * Telephone Encounter - Prema Andrea RN - 01/05/2025 12:34 PM CDTSummary: crtd INSTRUCTIONS Check in at [facility] on the west side of the hospital on 01/26 at 0800. Procedure is scheduled to begin at 1000. Nothing to eat or drink after midnight. Pack a small overnight bag. You will/may stay in the hospital overnight. Take your medicine list, insurance cards and comfortable clothes to wear home with you to the hospital. You will need a class a truck driver to take you home from the hospital. If you go home the same day, you will need someone to stay with you for 24 hours. Take all routine morning medications with a sip of water before leaving home. Medications to hold for the procedure: eliquis 2 days jardience day of Special instructions: 1. If you are taking Aspirin or Plavix, do not stop. 2. If you are having a pacemaker/defibrillator implanted, don???t take any clothes that go on over the head. You will need a button up shirt to wear home. 3. Shower the night before and the morning of the procedure with an antibacterial soap. Do not apply any lotion, perfume/cologne, or deodorant. If you have questions or need to cancel the same day as your procedure please call [phone], all other times please contact the clinic at [phone] * Telephone Encounter - Annalee Wang - 01/05/2025 9:22 AM CDT Blair (Provider) Caller: Yudelka holley/[facility] [phone] MESSAGE Caller asking for the Nurse to call to discuss if PT has had a pacemaker placed yet and if not, were there plans to do so Please assist. Thank you Cardiology Pharmacy Technologist: Whit Wang documented in this encounter Plan of Treatment Upcoming Encounters Date Type Department Care Team (Late st Contact Info) Description 01/09/2025 2:45 PM CHARGE ACCOUNT AUTHORIZER Appointment [facility] [address] [place] [phone] Juli Pinto MD [address] [place] [address] 01/26/2025 2:40 PM CHARGE ACCOUNT AUTHORIZER Office Visit [facility] [address] [place] [address] Juli Pinto MD [address] [place] [phone] Ghislaine Day NP [address] [place] [address] 06/09/2025 2:00 PM CDT Office Visit [facility] [address] [address] Ghislaine Aguilar FNP [address] [phone] documented as of this encounter Goals Goal Patient Goal Type Associated Problems Recent Progress Patient-Stated? Author Heart Failure Goal Care Plan Heart Failure Problem No Francis Elmore MD documented as of this encounter Visit Diagnoses Not on filedocumented in this encounter Additional Health Concerns Active Problems Noted Date Diagnosed Date Heart Failure Problem 12/09/2024 documented as of this encounter Care Teams Greige Goods Inspector Relationship Specialty Start Date End Date Francis Elmore MD [address] [address] PCP - General Family Practice 04/04/21 documented as of this encounter
--- OUTSIDE RECORDS SUMMARY | 2025-01-05 20:29 | XMS_ITS | Encounter Summary ---
Author Organization [facility] Address [address] [place] [address] Care Team Providers Care Chief Hospital Administrator Name Role Phone Francis Elmore MD Primary Care Provider [phone] Reason for Visit * Reason Onset Date Comments Procedure 01/05/2025 Returning missed call 01/05/2025 Encounter Details Date Type Department Care Team (Late st Contact Info) Description 01/05/[address] [facility] [address] [facility] [address] [place] [address] Prema Andrea RN Procedure; Returning missed call Social History Tobacco Use Types Packs/Day Years Used Date Smoking Tobacco: Never Smokeless Tobacco: Current Comments:Quit smoking: one c an q 1.5 days x 33 yrs Alcohol Use Standard Drinks/Week Comments Yes 1.7 (1 standard drink = 0.6 oz p ure alcohol) Sex and Gender Information Value Date Recorded Sex Assigned at Not on file Legal Sex Male 3:09 PM SONOGRAPHY TECHNICIAN Gender Identity Not on file Sexual Orientation Not on file documented as of this encounter Miscellaneous Notes * Telephone Encounter - Angelia Mosqueda - 01/05/2025 12:30 PM CDT Provider: Blair / Sharron / Daughter / On PHI MESSAGE Returning missed call from Prema, transferred caller to her, thank you. Angelia Jaylin, [facility] Cardiology [facility], [facility] P[facility] * Telephone Encounter - Prema Andrea RN - 01/05/2025 12:24 PM CDT Patient called to schedule procedure. No answer. documented in this encounter Plan of Treatment Upcoming Encounters Date Type Department Care Team (Late st Contact Info) Description 01/09/2025 2:45 PM SONOGRAPHY TECHNICIAN Appointment [facility] [address] [address] Juli Pinto MD [address] [place] [phone] 01/26/2025 2:40 PM SONOGRAPHY TECHNICIAN Office Visit [facility] [address] [place] [address] Juli Pinto MD [address] [place] [address] Ghislaine Day NP [address] [place] [phone] 06/09/2025 2:00 PM CDT Office Visit [facility] Family [facility] [place] [address] [address] Ghislaine Aguilar FNP [address] [address] documented as of this encounter Goals Goal Patient Goal Type Associated Problems Recent Progress Patient-Stated? Author Heart Failure Goal Care Plan Heart Failure Problem No Francis Elmore MD documented as of this encounter Visit Diagnoses Not on filedocumented in this encounter Additional Health Concerns Active Problems Noted Date Diagnosed Date Heart Failure Problem 12/09/2024 documented as of this encounter Care Teams Chief Hospital Administrator Relationship Specialty Start Date End Date Francis Elmore MD [address] [phone] PCP - General Family Practice 04/04/21 documented as of this encounter
--- OUTSIDE RECORDS SUMMARY | 2025-01-05 20:29 | XMS_ITS | Clinical Summary ---
Author Organization [facility] Address [address] [facility] Attn: [place] [address] Care Team Providers Care Caustic Room Attendant Name Role Phone Francis Elmore MD Primary Care Provider [phone] [phone] Allergies Active Allergy Reactions Criticality Noted Date [...] Problem Noted Date Diagnosed Date Atherosclerosis of [place] co ronary artery of [place] heart with stable angina pectoris 12/08/2024 Chronic systolic congestive heart failure 2024 Statin myopathy 12/08/2024 H/O heart artery stent 10/05/2024 Paroxysmal atrial fibrillation 12/04/2021 Obstructive sleep apnea 09/19/2016 Shingles (herpes zoster) polyneuropathy 02/05/20 16 Tobacco use 06/21/2015 Allergic rhinitis 07/18/2011 Hyperlipidemia 12/24/2007 HTN (hypertension) 12/24/2007 Overview (07/04/2020): Updating IMO/ICD9 Code and Description Encounters Date Type Department Care Team Description 01/05/2025 Telephone [place] [id number] [facility] [address] [place] [phone] Prema Andrea RN Procedure; Returning missed call 01/05/2025 Telephone [place] [address] [facility] [address] [place] [address] Juli Pinto MD [facility] asking for the Nurse to call; Question 01/02/2025 Orders Only [facility] [address] [place] [address] Provider, Abstract 12/28/2024 Telephone [place] [address] [facility] [address] [place] [address] Juli Pinto MD US of Heart Approved 12/22/2024 Telephone [facility] [address] [place] [address] Francis Elmore MD Medication Review 12/21/2024 Orders Only [address] [place] [address] Francis Elmore MD 12/14/2024 Telephone [facility] [address] [place] [address] Francis Elmore MD Medication Review 12/13/2024 External Device Data STL ABSTRACTION Provider, Abstract 12/13/2024 External Device Data ST[place] ABSTRACTION Provider, Abstract 12/13/2024 External Device Data ST[place] ABSTRACTION Provider, Abstract 12/13/2024 External Device Data ST[place] ABSTRACTION Provider, Abstract 12/09/2024 Orders Only [address] [place] [address] Francis Elmore MD 12/08/2024 4:00 PM CDT Office Visit [address] [place] [address] Francis Elmore MD Atherosclerosis of [place] coronary artery of [place] heart with stable angina pectoris (Primary Dx); Shingles (herpes zoster) polyneuropathy; Chronic systolic congestive heart failure; Obstructive sleep apnea; Statin myopathy; External hemorrhoids 12/06/2024 External Device Data ST[place] ABSTRACTION Provider, Abstract 11/09/2024 External Device Data STL ABSTRACTION Provider, Abstract 10/31/2024 Telephone [facility] [address] [place] [phone] Juli Pinto MD Needs sooner appointment 10/18/2024 9:20 AM CDT Office Visit [facility] [address] [place] [phone] Juli Pinto MD Stillwell, Crystal, NP Paroxysmal atrial fibrillation (CMS/HCC) (Primary Dx); Cardiomyopathy, unspecified type (CMS/HCC) 10/17/2024 Abstract [facility] [address] [facility] [address] [place] [address] Provider, Abstract 10/12/2024 Orders Only [facility] [address] [facility] [address] [place] [address] Ghislaine Day NP Paroxysmal atrial fibrillation (CMS/HCC) (Primary Dx); H/O heart artery stent 10/06/2024 Orders Only [facility] [address] 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 [address] [address] Juli Pinto MD [address] [place] [address] 01/26/2025 2:40 PM FRAME TABLE OPERATOR HELPER Office Visit [facility] [address] [place] [phone] Juli Pinto MD [address] [place] [address] Ghislaine Day NP [address], [address] [place] [address] 06/09/2025 2:00 PM CDT Office Visit [facility] [place] [address] [address] Ghislaine Aguilar FNP [address] [address] Health Maintenance Due Date Last [...] METABOLIC PANEL Routine 01/02/2025 1:28 PM CDT COMPREHENSIVE METABOLIC PANEL Routine 10/26/2024 11:29 AM CDT MO ECG ROUTINE ECG W/LEAST 12 LDS W/I&R Routine 10/18/2024 9:52 AM CDT Paroxysmal atrial fibrillation (CMS/HCC) H/O heart artery stent EKG 12-LEAD Routine 10/11/2024 ECHO LIMITED Routine 10/07/2024 COMPREHENSIVE METABOLIC PANEL Routine 10/05/2024 10:13 AM CDT PROTIME-INR Routine 10/05/2024 from Last 3 Months Results * COMPREHENSIVE METABOLIC PANEL (01/02/2025 1:28 PM CDT) Only the most recent of3 resultswithin the time period is included. Blood us Abstract Provider CHEMISTRY ORDERABLES Final Res ult * MO ECG ROUTINE ECG W/LEAST 12 LDS W/I&R (10/18/2024 9:52 AM CDT) Only the most recent of2 resultswithin the time period is included. Narrative [facility] - 10/18/2024 9:52 AM CDT Shay GhislaineFEROZ 10/23/2024 9:05 PM 12 Lead EKG: Rhythm: Afib, ventricular rate 69 bpm, MO interval ms, QRS duration 166 ms, QTc 550 ms Procedure Note ShayGhislaine cantu NP - 10/18/2024 9:52 AM CDT 12 Lead EKG: Rhythm: Afib, ventricular rate 69 bpm, MO interval ms, QRSduration 166 ms, QTc 550 ms Ghislaine Morrowwell MARKETING CLERK ECG ORDERABLES Final Resul t [facility] CLIA [id number] [address] [facility] [address] [place] [address], * (ABNORMAL) ECHO LIMITED (10/07/2024) EJECTION FRACTION 20(A) 50 - 65 % Marichuy Thomas LICENSED NUCLEAR OPERATOR ECHO ORDERABLES Final Res ult * PROTIME-INR (10/05/2024) ABSTRACTED PROTIME 17.6 ABSTRACTED INR 1.36 Blood 10/05/2024 us Abstract Provider HEMATOLOGY ORDERABLES Final Re sult from Last 3 Months Additional Health Concerns Active Problems Noted Date Diagnosed Date Heart Failure Problem 12/09/2024 Insurance BC BLUE PREFERRED Care Teams Caustic Room Attendant Relationship Specialty Start Date End Date Francis Elmore MD [address] [phone] PCP - General Family Practice 04/04/21
--- OUTSIDE RECORDS SUMMARY | 2025-01-05 20:29 | XMS_ITS | Encounter Summary ---
Author Organization [facility] Address [address] [facility] [place] [address] Care Team Providers Care Student Worker Name Role Phone Sumi Oliver MD Primary Care Provider Encounter Details Date Type Department Care Team (Latest Contact Info) Description 05/08/2006 Outpatient Historical [facility] Family Medicine- [address] [place] [address] Jeanna Agee MD NO ADDRESS ON FILE Unspecified Essential Hypertension (Primary Dx); Unspecified Sleep Apnea Social History Tobacco Use Types Packs/Day Years Used Date Smoking Tobacco: Never Assessed Sex and Gender Information Value Date Recorded Sex Assigned at Not on file 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
--- OUTSIDE RECORDS SUMMARY | 2025-01-05 20:29 | XMS_ITS | Encounter Summary ---
Author Organization [facility] Address [address] [place] [address] Care Team Providers Care Sewer Hand Name Role Phone Francis Elmore MD Primary Care Provider [phone] Reason for Visit * Reason Onset Date Comments [facility] Heart Approved 12/28/2024 Encounter Details Date Type Department Care Team (Late st Contact Info) Description 12/28/2024 Telephone [facility] [address] [facility] [place] [phone] Juli Pinto MD [address] [place] [phone] [facility] Approved Social History Tobacco Use Types Packs/Day Years Used Date Smoking Tobacco: Never Smokeless Tobacco: Current Comments:Quit smoking: one c an q 1.5 days x 33 yrs Alcohol Use Standard Drinks/Week Comments Yes 1.7 (1 standard drink = 0.6 oz p ure alcohol) Sex and Gender Information Value Date Recorded Sex Assigned at Not on file Legal Sex Male 3:09 PM BUYER ASSISTANT Gender Identity Not on file Sexual Orientation Not on file documented as of this encounter Miscellaneous Notes * Telephone Encounter - Jacki Toledo - 12/28/2024 2:37 PM CDT Provider: Blair Stuart: yaniv miller - [phone] MESSAGE US [facility] - [facility]/27/25 with auth of [id number]. Thank you. Jacki Toledo, [facility], Advanced PSR documented in this encounter Plan of Treatment Upcoming Encounters Date Type Department Care Team (Late st Contact Info) Description 01/09/2025 2:45 PM BUYER ASSISTANT Appointment [facility] [address] [facility] [address] [place] [address] Juli Pinto MD [address] [place] [phone] 01/26/2025 2:40 PM BUYER ASSISTANT Office Visit [facility] [address] [place] [phone] Juli Pinto MD [address] [place] [phone] Ghislaine Day NP [address], [address] [place] [phone] 06/09/2025 2:00 PM CDT Office Visit [facility] [place] [address] [phone] Ghislaine Aguilar FNP [address] [phone] documented as of this encounter Goals Goal Patient Goal Type Associated Problems Recent Progress Patient-Stated? Author Heart Failure Goal Care Plan Heart Failure Problem No Francis Elmore MD documented as of this encounter Visit Diagnoses Not on filedocumented in this encounter Additional Health Concerns Active Problems Noted Date Diagnosed Date Heart Failure Problem 12/09/2024 documented as of this encounter Care Teams Sewer Hand Relationship Specialty Start Date End Date Francis Elmore MD [address] [phone] PCP - General Family Practice 04/04/21 documented as of this encounter
--- OUTSIDE RECORDS SUMMARY | 2025-01-05 20:29 | XMS_ITS | Encounter Summary ---
Author Organization [facility] Address [address] [facility] [place] [address] Care Team Providers Care Family Life Counselor Name Role Phone Sumi Oliver MD Primary Care Provider Encounter Details Date Type Department Care Team (Latest Contact Info) Description 06/08/2001 Outpatient Historical [facility] Family Medicine- [place] [address] [place], [place] [phone] Uri Burleson DO NO ADDRESS ON FILE ALLERGY, UNSPECIFIED (Primary Dx); DYSPHAGIA Social History Tobacco Use Types Packs/Day Years Used Date Smoking Tobacco: Never Assessed Sex and Gender Information Value Date Recorded Sex Assigned at Not on file Legal 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
--- OUTSIDE RECORDS SUMMARY | 2025-01-05 20:29 | XMS_ITS | Encounter Summary ---
Author Organization [facility] Address [address] [facility] [facility] [place] [address] Care Team Providers Care Power Reactor Supervisor Name Role Phone Sumi Oliver MD Primary Care Provider Encounter Details Date Type Department Care Team (Latest Contact Info) Description 06/08/1998 Outpatient Historical [facility] Family Medicine- [place] [address] [place] [phone] Mayra Cherry NO ADDRESS ON FILE Pneumonia, organism unspecified(486) (Primary Dx) Social History Tobacco Use Types Packs/Day Years Used Date Smoking Tobacco: Never Assessed Sex and Gender Information Value Date Recorded Sex Assigned at Not on file 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
--- OUTSIDE RECORDS SUMMARY | 2025-01-05 20:29 | XMS_ITS | Encounter Summary ---
Author Organization [facility] Address [address] [facility] [place] [address] Care Team Providers Care Hospice Manager Name Role Phone Sumi Oliver MD Primary Care Provider Encounter Details Date Type Department Care Team (Latest Contact Info) Description 04/17/2006 Outpatient Historical [facility] Family Medicine- [place] [address] [place] [phone] Jeanna Agee MD NO ADDRESS ON FILE Other Alteration of Consciousness (Primary Dx); Elevated Blood Pressure Reading without Diagnosis of Hypertension Social History Tobacco Use Types Packs/Day Years Used Date Smoking Tobacco: Never Assessed Sex and Gender Information Value Date Recorded Sex Assigned at Not on file Legal Sex Male 5:47 AM ADMINISTRATIVE SUPPORT 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
--- OUTSIDE RECORDS SUMMARY | 2025-01-05 20:29 | XMS_ITS | Encounter Summary ---
Author Organization [facility] Address [address] [facility] [place] [address] Care Team Providers Care Newsperson Name Role Phone Sumi Oliver MD Primary Care Provider Encounter Details Date Type Department Care Team (Latest Contact Info) Description 06/02/2000 Outpatient Historical [facility] Family Medicine- [place] [address] [place], [place] [phone] Uri uBrleson, NO ADDRESS ON FILE Dizziness and giddiness (Primary Dx); Labyrinthitis, unspecified Social History Tobacco Use Types Packs/Day Years Used Date Smoking Tobacco: Never Assessed Sex and Gender Information Value Date Recorded Sex Assigned at Not on file 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
--- NOTE | 2025-01-05 20:33 | ECG_ITS ---
[facility]: 2025-01[facility]05 Pat Name: Colin Moya Department: Room: Gender: Male Fieldwork Coordinator: : 1960 Requested By: Jagdish Dukes Order Number: [id number] Moore MD: Avery Denney M.D. Measurements Intervals [place] Rate: 78 P: 0 AR: 0 QRS: -48 QRSD: 195 T: 93 QT: 465 QTc: 533 Interpretive Statements ATRIAL FIBRILLATION LEFT BUNDLE BRANCH BLOCK Compared to ECG 01/02/2025 08:40:59 NO SIGNIFICANT CHANGE Electronically Signed On 01-07-2025 20:52:10 CDT by Avery Denney M.D. [email or web address]
--- NOTE | 2025-01-05 20:46 | XRR_ITS ---
PROCEDURE INFORMATION: Exam: XR Chest Exam date and time: 01/05/2025 8:50 PM Age: 64 years old Clinical indication: Pain; Angina pectoris; Additional info: Chest pain TECHNIQUE: Imaging protocol: Radiologic exam of the chest. Views: 1 view. COMPARISON: CR XR chest 1V portable [id number] 01/02/2025 8:41 AM FINDINGS: Lungs: Atelectasis or infiltrate at the lateral left lung base. The 12 mm nodule seen previously is not distinctly visible on this study. Pleural spaces: Unremarkable. No pleural effusion. No pneumothorax. Heart/Mediastinum: See Vasculature finding. Vasculature: Mild cardiomegaly and uncoiling of the thoracic aorta. Bones/joints: Unremarkable. XR/XR chest 1V portable [id number] IMPRESSION: Mild opacity on the left.
[2025-01-06] VITALS (9 sets, daily range): BP systolic 108–136; BP diastolic 78–96; PULSE 74–93; RESP 15–23; TEMP 36–36.4; O2SAT 94–100; BMI 33.2
--- NOTE | 2025-01-06 00:19 | W.ED.CHESTPA ---
HPI - Chest Pain General: Chief Complaint: Chest Pain Stated Complaint: Chest Pain Time Seen by Provider: 01/05/25 22:57 History of Present Illness: Patient is a 64M with a hx of HFrEF (20%) and CAD sp PCI who presents to the ED with worsening symptoms of fluid overload over the past several days, including significant weight gain (approximately 20 lbs in the past week), increased lower extremity edema, and exertional dyspnea. The patient reports that symptoms have been refractory to outpatient diuretic therapy (on Bumex 1mg), with recent emergency department visit earlier in the week for similar complaints and temporary improvement after IV diuresis. He denies fever, abdominal pain, vomiting, or other infectious symptoms. He notes that this episode is the first time swelling has predominantly affected his legs rather than his lungs. He has not required supplemental oxygen at home and has not been admitted to the hospital since September. He is scheduled for pacemaker placement next month due to an ejection fraction of 20%. He reports some difficulty with urination, describing it as slow at times but otherwise regular. Associated symptoms: Reports dyspnea Related Data Home Medications ?Medication ?Instructions ?Recorded ?Confirmed duloxetine 60 mg capsule,delayed 60 mg PO DAILY 12/25/21 10/26/24 release evolocumab 140 mg/mL subcutaneous 140 mg SUBCUT Q14D 10/05/24 10/26/24 pen injector (Emma Fajardo) Previous Rx's ?Medication ?Instructions ?Recorded digoxin 125 mcg (0.125 mg) tablet 125 mcg PO DAILY #90 tabs 07/11/24 clopidogrel 75 mg tablet 75 mg PO DAILY 90 days #90 tabs 08/19/24 metoprolol tartrate 25 mg tablet 25 mg PO BID@0900,2100 #180 tabs 08/25/24 potassium chloride 10 mEq 10 meq PO DAILY #90 tabs 08/25/24 tablet,extended release (Klor-Con) amiodarone 200 mg tablet (Pacerone) 200 mg PO DAILY #90 tabs 09/29/24 empagliflozin 10 mg tablet 10 mg PO DAILY #90 tabs 10/26/24 (Jardiance) isosorbide mononitrate 30 mg 15 mg (1/2 x 30 mg) PO QAM #90 tabs 10/26/24 tablet,extended release 24 hr bumetanide 1 mg tablet See Rx Instructions .Route 11/14/24 .COMPLEX #90 tabs sacubitril 24 mg-valsartan 26 mg 0.5 tab PO BID #60 tabs 11/28/24 tablet (Entresto) apixaban 5 mg tablet (Eliquis) See Rx Instructions .Route 12/20/24 .COMPLEX #180 tabs Allergies Allergy/AdvReac Type Severity Reaction Status Date / Time simvastatin Allergy Severe N/V Verified 01/05/25 20:38 Review of Systems General: Reports: 10 or more systems reviewed and unremarkable except in HPI and below Const: Reports: change in weight Card: Reports: chest pain and swelling of feet/ankles Resp: Reports: dyspnea PFSH ED PFSH: Medical History (Updated 01/06/25 @ 00:50 by Jagdish Dukes DO) Pulmonary hypertension Atrial fibrillation with rapid ventricular response Acute exacerbation of CHF (congestive heart failure) Obstructive sleep apnea SOBOE (shortness of breath on exertion) Postherpetic neuralgia Tobacco use Exercise intolerance Allergic rhinitis Shingles Hypertension Paroxysmal atrial fibrillation Labile blood pressure Dyspnea Hyperlipidemia GIA on CPAP Dizziness Chest discomfort Surgical History No history of previous surgery Family History Father CAD (coronary artery disease) Stroke, Onset Age: 35 Grandmother Cancer Mother Stroke Sister Stroke Denies family history of Diabetes Clotting disorder Dementia Chronic kidney disease (CKD) Suicide Anesthesia complication Bleeding disorder Lung disease Social History Smoking and tobacco/nicotine status: former use of tobacco/nicotine Alcohol intake: current Alcohol intake frequency: few times a month Substance/Drug Use: never Physical Exam Narrative: EXAM NARRATIVE: Patient fatigued but overall well-appearing, vital stable on arrival, afebrile, no acute distress. Breathing comfortably on room air, saturating in mid 90s, mildly tachypneic but able to speak in full sentences without getting short of breath, no retractions, no increased work of breathing, clear bilateral breath sounds, no obvious crackles, no signs of respiratory distress. Abdomen soft, nondistended, no overlying skin changes, bowel sounds intact. 3+ pitting edema bilaterally, no overlying skin changes. Course Vital Signs: Vital signs: Vital Signs Temperature 97.5 F L 01/05/25 20:29 Pulse Rate 77 01/05/25 20:29 Respiratory Rate 17 01/05/25 20:29 Blood Pressure 129/85 01/05/25 20:29 Pulse Oximetry 97 01/05/25 20:29 Oxygen Delivery Me thod Room Air 01/05/25 20:29 MDM - Chest Pain Medical Decision Making -ddx: CHF exacerbation, COPD, ACS, dysrhythmia, CKD, acute renal failure, - Patient overall well-appearing, with repeat visit from recent CHF exacerbation in which she had temporary improvement with IV diuresis but has gained 20 pounds at home over the last 4 days despite being compliant with his Bumex and avoiding lots of free fluid and salt. He has had worsening exertional dyspnea, 3+ pitting edema, 20 pound weight gain over this time, otherwise does his own ADLs, no concerns for infection at this time, has chest discomfort secondary to fluid overload but not ACS sounding in nature, EKG reassuring, chest x-ray and BMP relatively at baseline, creatinine 1.9 consistent with his history of CKD. He will be given a dose of metolazone, IV diuresis with Bumex and then admitted to the cardiac stepdown unit for continued diuresis over the next few days to help with his heart failure exacerbation, in stable condition at this time, daughter at bedside and updated with plan of care. XR interpretation done by ED provider, pending radiology final review ED provider radiology interpretation(s): Mild amount of central pulmonary vascular congestion, similar to prior Discharge Plan Discharge Admit Provider: Charissa Ash Clinical Impression: Congestive heart failure Condition: Stable Coding Level of Care Code ED Rotating Equipment Specialist for Chg Fwd Heart Score HEART Score Components History: Slightly Suspicous EKG: Non-specific Changes Age: 45-64 yrs Risk Factors: >/=3 Risk Factors Troponin: Baseline Trop 16-45 ng/L HEART Score RESULT HEART Score: 5
[2025-01-06 00:55] LABS: Hematocrit 40.7 % (37-53); Hemoglobin 12.60 g/dL (11.27-16.99); Mean Corpuscular HGB Conc 31.0 g/dL (30-55); Mean Corpuscular Hemoglobin 28.4 pg (27-33); Mean Corpuscular Volume 91.9 fl (82-101); Nucleated Red Blood Cells % 0.4 %; Platelet Count 316 10^3/cmm (157-399); Red Blood Count 4.43 10^6/uL (3.85-5.65); White Blood Count 4.66 10^3/uL (3.29-11.43)
[2025-01-06 01:11] LABS: Troponin(5th) Baseline 19 ng/L (0-15)
[2025-01-06 01:14] LABS: Alanine Aminotransferase 607 U/L (0-41); Albumin Level 3.8 g/dL (3.5-5.2); Alkaline Phosphatase 294 U/L (40-130); Anion Gap 20.8 (5-19); Aspartate Amino Transferase 328 U/L (0-40); Blood Urea Nitrogen 40 mg/dL (8-23); Calcium 8.6 mg/dL (8.5-10.5); Carbon Dioxide 24 mmol/L (22-29); Chloride 96 mmol/L (98-107); Creatinine Clr Calc Pharmacy 53.1904; Globulin 2.3 g/dL (1.3-4.6); Glucose 103 mg/dL (65-115); Osmolality Calculated 294 mOsm/kg (285-295); Potassium 3.8 mmol/L (3.5-5.1); Sodium 137 mmol/L (136-145); Total Protein 6.1 g/dL (6.6-8.7)
--- NOTE | 2025-01-06 01:24 | P.HP_ITS ---
Providers/Chief Complaint 2 Admitting Physician: Charissa Ash MD--admitted after 12 midnight Primary Care Provider: Francis Elmore Chief Complaint: Chest Pain History of Present Illness Colin Moya is a 64 year old male with medical history significant for systolic dysfunction cardiomyopathy with an ejection fraction of 20%. Patient presented to the emergency room because he had gained 20 pounds over the past 3 to 4 days. He is cardiology as a walk-in for an AICD for him with this low ejection fraction. Patient takes Bumex at home 2 mg twice daily. IV Bumex had been initiated here along with metolazone. Patient is putting out quite a lot of output. Must follow-up with daily weights fluid restriction strict I and O's Review of Systems 2 Narrative: Then review her significant for cardiovascular for much volume overload Medications/Allergies Home Medications ?Medication ?Instructions ?Recorded ?Confirmed ?Last Taken ?Type duloxetine 60 mg capsule,delayed 60 mg PO DAILY 10/26/24 10/05/24 History release digoxin 125 mcg (0.125 mg) tablet 125 mcg PO DAILY #90 tabs 07/11/24 10/26/24 09/28/24 Rx clopidogrel 75 mg tablet 75 mg PO DAILY 90 days #90 t abs 08/19/24 10/26/24 10/05/24 Rx metoprolol tartrate 25 mg tablet 25 mg PO BID@0900,210 0 #180 tabs 08/25/24 10/26/24 10/05/24 09:00 Rx potassium chloride 10 mEq 10 meq PO DAILY #90 tabs 10/26/24 10/05/24 Rx tablet,extended release (Klor-Con) amiodarone 200 mg tablet (Pacerone) 200 mg PO DAILY #9 0 tabs 09/29/24 10/26/24 10/05/24 Rx evolocumab 140 mg/mL subcutaneous 140 mg SUBCUT Q14D 0 10/05/24 10/26/24 09/23/24 History pen injector (Repatha SureSteveick) empagliflozin 10 mg tablet 10 mg PO DAILY #90 tabs 10/26/24 Unknown Rx (Jardiance) isosorbide mononitrate 30 mg 15 mg (1/2 x 30 mg) PO QA M #90 tabs 10/26/24 10/26/24 Unknown Rx tablet,extended release 24 hr bumetanide 1 mg tablet See Rx Instructions .Route 0 11/14/24 Unknown Rx .COMPLEX #90 tabs sacubitril 24 mg-valsartan 26 mg 0.5 tab PO BID #60 ta bs 11/28/24 Unknown Rx tablet (Entresto) apixaban 5 mg tablet (Eliquis) See Rx Instructions .Ro sen[place] 12/20/24 Unknown Rx .COMPLEX #180 tabs Allergies Allergy/AdvReac Type Severity Reaction Status Date / Time simvastatin Allergy Severe N/V Verified 01/05/25 20:38 PFSH Acute 2 PFSH: Medical History Pulmonary hypertension Atrial fibrillation with rapid ventricular response Acute exacerbation of CHF (congestive heart failure) Obstructive sleep apnea SOBOE (shortness of breath on exertion) Postherpetic neuralgia Tobacco use Exercise intolerance Allergic rhinitis Shingles Hypertension Paroxysmal atrial fibrillation Labile blood pressure Dyspnea Hyperlipidemia GIA on CPAP Dizziness Chest discomfort Surgical History No history of previous surgery Family History Father CAD (coronary artery disease) Stroke, Onset Age: 35 Grandmother Cancer Mother Stroke Sister Stroke Denies family history of Diabetes Clotting disorder Dementia Chronic kidney disease (CKD) Suicide Anesthesia complication Bleeding disorder Lung disease Social History Smoking and tobacco/nicotine status: former use of tobacco/nicotine Alcohol intake: current Alcohol intake frequency: few times a month Substance/Drug Use: never Vitals/I&O/Wt Last Vital Signs Temp 97.5 F L 01/05/25 20:29 Pulse 93 01/06/25 01:09 Resp 16 01/06/25 01:09 BP 125/85 01/06/25 01:09 Pulse Ox 94 01/06/25 01:09 O2 Del Method Room Air 01/05/25 20:29 Weight last 48 hrs Weight 98.43 kg Physical Exam 2 Narrative: Generally patient is doing well in no apparent distress HEENT normocephalic atraumatic neck neck is supple cardiovascular heart rate is regular lungs are pretty much clear abdomen soft nontender nondistended unremarkable extremities are intact trace edema has good pulses neurology has no focality lab studies lab studies reviewed and noted. Data 01/06/25 03:09 01/06/25 03:47 A&P Assessment and plan 1. Edema of both lower legs: 2. Non-ischemic cardiomyopathy: 3. Acute exacerbation of CHF (congestive heart failure): 4. Benign essential HTN: Plan: CHF exacerbation secondary to systolic dysfunction - Admit to stepdown unit for aggressive CHF exacerbation management - Diuresis with Bumex and metolazone - Monitor daily weights, fluid restriction, I and O's - Echocardiogram if 1 not done in the last 3 months for this patient. - Cardiology will be consulted with Dr. Handy this morning to guide therapy and care in a patient with such low S ejection fraction and the possibility of AICD when able Chronic medical illness such as--atrial fibrillation/hypertension continue to be managed with care in place GI and DVT prophylaxis in place PDMP PDMP Reviewed: Not Reviewed Attestations 2 Medical Necessity Statement*: Patient with much volume overload systolic dysfunction will need at least 2 midnights to optimize care. Coding Level of Care Code 40808 Diagnoses Edema of both lower legs R60.0 Non-ischemic cardiomyopathy I42.8 Acute exacerbation of CHF (congestive heart failure) I50.9 Benign essential HTN I10 Time Spent (min) 60
[2025-01-06] MEDS: doxycycline 100 MG in sodium chloride 0.9% (plus) 100 ML IV (02:10)
[2025-01-06] MEDS: methylPREDNISolone sod succ 40 mg/mL INJ IVP ×2 (02:19→13:04)
[2025-01-06] MEDS: bumetanide 0.25 mg/mL SDV 4 mL 1 MG IVP ×2 (02:20→13:04)
[2025-01-06] MEDS: heparin 5,000 unit/mL INJ 1 mL 5000 UNIT SUBCUT ×2 (02:23→13:03)
[2025-01-06 03:18] LABS: Hematocrit 41.6 % (37-53); Hemoglobin 12.60 g/dL (11.27-16.99); Mean Corpuscular HGB Conc 30.3 g/dL (30-55); Mean Corpuscular Hemoglobin 28.3 pg (27-33); Mean Corpuscular Volume 93.5 fl (82-101); Nucleated Red Blood Cells % 0.4 %; Platelet Count 284 10^3/cmm (157-399); Red Blood Count 4.45 10^6/uL (3.85-5.65); White Blood Count 5.07 10^3/uL (3.29-11.43)
[2025-01-06 04:31] LABS: Alanine Aminotransferase 672 U/L (0-41); Albumin Level 3.9 g/dL (3.5-5.2); Alkaline Phosphatase 326 U/L (40-130); Anion Gap 23.8 (5-19); Aspartate Amino Transferase 333 U/L (0-40); Blood Urea Nitrogen 40 mg/dL (8-23); Calcium 8.8 mg/dL (8.5-10.5); Carbon Dioxide 22 mmol/L (22-29); Chloride 95 mmol/L (98-107); Creatinine Clr Calc Pharmacy 56.3534; Globulin 3.3 g/dL (1.3-4.6); Glucose 126 mg/dL (65-115); Magnesium 2.6 mg/dL (1.7-2.3); Osmolality Calculated 295 mOsm/kg (285-295); Potassium 3.8 mmol/L (3.5-5.1); Sodium 137 mmol/L (136-145); Total Protein 7.2 g/dL (6.6-8.7); Troponin 5 2HR 19.06 ng/L (0-15); Troponin 5 2HR Delta 0.06 ABS# (0-10)
--- NOTE | 2025-01-06 07:49 | US_ITS ---
WS: [id number] RIGHT UPPER QUADRANT ULTRASOUND HISTORY: Increased bili and liver enzymes to look for biliary system COMPARISON: None. Liver: 19.9 cm in length. Liver is mildly enlarged with diffuse coarse echotexture. Very slight surface nodularity. No intrahepatic dilatation. Portal Vein: Normal hepatopetal flow with monophasic waveform. Gallbladder: Gallbladder is contracted. There is a stone within the gallbladder. This stone measures 2.2 cm. There is mild gallbladder wall thickening. No adjacent inflammation. There may also be a small amount of sludge in the gallbladder. CBD: 0.4 cm Pancreas: Completely obscured by bowel gas. Right kidney: 10.5 cm in length. Normal size and echogenicity. No hydronephrosis or mass. Aorta and IVC: Mild dilated IVC. Mild atherosclerosis aorta. There is a tiny amount of ascites and a small RIGHT pleural effusion. US/US liver [id number] IMPRESSION: 1. Contracted gallbladder with a single 2.2 cm stone identified. There may als o be a small amount of sludge present. 2. Normal common bile duct. 3. Mild hepatomegaly with coarse echotexture from hepatic steatosis or other c auses of hepatocellular disease. 4. Tiny amount of perihepatic ascites and a small RIGHT pleural effusion.
--- NOTE | 2025-01-06 07:49 | CT_ITS ---
WS: [id number] CT ABDOMEN AND PELVIS NONCONTRAST HISTORY: increased bili and liver enzymes TECHNIQUE: Imaging performed through the abdomen and pelvis. Coronal and sagittal reformats are submitted. All CT scans at [facility] use at least one of these dose optimization techniques: automated exposure control; mA and/or kV adjustment per patient size (includes targeted exams where dose is matched to clinical indication); or iterative reconstruction. DLP: 950.70 mGy.cm COMPARISON: None available. Study compromised by breathing motion artifact. Lower thorax: Small layering bilateral pleural effusions. Heart is slightly enlarged. Mitral annular calcification. Bandlike areas of atelectasis at the lung bases. Small hiatal hernia. Liver: Liver is slightly enlarged. Mild hepatic steatosis. No intrahepatic duct dilatation identified. Gallbladder: Abnormal gallbladder. Gallbladder is slightly contracted and there is diffuse inflammation surrounding the gallbladder. Stones were noted on recent ultrasound. Common bile duct is not dilated. Pancreas: Normal size and attenuation. Normal pancreatic duct. No pancreatitis or mass. Spleen: Normal. Adrenal glands: Normal. No mass. Right kidney: Normal size RIGHT kidney with no obstruction. Central calcifications are likely arterial. Mixed attenuation mass from the posterior kidney measures 2.5 x 1.5 cm. Mild perinephric stranding around the kidney. Left kidney: Mild perinephric stranding. No renal obstruction. Aorta: Mild atherosclerosis abdominal aorta with no aneurysm. Small amount of ascites adjacent to the liver. There is diffuse stranding in the mesentery and retroperitoneum and subcutaneous soft tissues from fluid overload. GI tract: No GI tract obstruction. No small bowel obstruction. There is mild inflammation surrounding the duodenal C-loop. Normal appendix. Abdominal wall: Diffuse soft tissue edema and anasarca. Pelvis: Normally distended urinary bladder. Patent bilateral inguinal canals containing fat. There is also fluid in the RIGHT inguinal canal and small bilateral hydroceles. Fluid in the pelvis. Osseous structures: Unremarkable. CT/CT abdomen pelvis wo con [id number] IMPRESSION: 1. Diffuse soft tissue anasarca. Subcutaneous edema but there is also edema wi thin the mesentery and retroperitoneum. 2. Diffuse inflammatory changes surrounding the gallbladder. Gallstone was nain ntified on a recent ultrasound. There is no common bile duct dilatation. With t his amount of inflammation acute cholecystitis should be considered. These infl ammatory changes may be related to hepatocellular disease and patient's fluid o verload. 3. Complex lobulated mass associated with the posterior RIGHT kidney measures 2.5 x 1.5 cm. Mass not identified on the recent ultrasound. Recommend renal mas s CT or MRI protocol when patient's clinical presentation improves. Neoplasm ne eds to be excluded. 4. Mild hepatomegaly and hepatic steatosis. 5. Small bilateral pleural effusions. 6. Small amount of ascites. 7. No renal obstruction.
[2025-01-06 08:16] LABS: Troponin 5 6HR 17.99 ng/L (0-15)
[2025-01-06 08:17] LABS: Troponin 5 6HR Delta -1.01 ng/L (0-12)
--- NOTE | 2025-01-06 09:45 | P.CONIM_ITS ---
<Statement entered by Avery Denney MD - 01/06/25 17:17> Patient was evaluated and cared for in conjunction with an advanced practice practitioner. I personally examined the patient and reviewed the chart and all pertinent data including imaging, telemetry, and laboratory results. I discussed the patient in detail with the advanced practice practitioner. Please see their note for complete consult note, testing results and agreed upon plan of care for the patient. GENERAL: Patient is alert, awake and oriented x3. HEART: Regular irreg irreg LUNGS: rales in samantha bases EXTREMITIES: 2+ leg edema A/c HFrEF AF chronic LBBB Bumex 1mg IV bid plus metolazone strict I/Os and daily bmp will adjust GDMT depending on daily blood work and hemodynamics Continue home anticoagulation Scheduled for PPM placement next month - BIZTALK DEVELOPER device preferred and we will discuss with Dr. Pinto () in [place]. Providers/Reason For Consult 2 Consulting Physician/Specialty*: Dr Denney, cardiology Reason for Consult*: exacerbation of systolic CHF Requesting Physician: Ayesha Lancaster MD Attending Physician: Ayesha Lancaster MD Primary Care Provider: Francis Elmore History of Present Illness History of Present Illness Colin Moya is a 64 year old male with past medical history of CAD (last [facility] 10/11/2024 revealing patent LAD, diagonal, OM/ramus previously placed stents, mid RCA stenosis 40% nonischemic by IFR), systolic CHF (LVEF reduced to 20% in October from 30 to 35%), CKD (baseline creatinine 1.3-1.5), atrial fibrillation (anticoagulated with apixaban, rate control with metoprolol, digoxin, amiodarone). Blood pressure has precluded up titration of Entresto in the past, currently on 1/2 tablet 24/26 mg BID. He presented to the emergency room during the night last night due to worsening shortness of breath with exertion and 20 pound weight gain in the last 2 weeks. He had attempted to increase his home dose of Bumex to encourage diuresis however that was not successful. He has only been able to sleep at night using his CPAP, has orthopnea, significant lower extremity edema. No chest pain, atrial fibrillation has been well- controlled. Breathing has not been labored at rest. He has had some difficulty initiating urine stream but has been urinating well. Liver enzymes are elevated, AST 333, ALT 672. Medications/Allergies Home Medications ?Medication ?Instructions ?Recorded ?Confirmed ?Last Taken ?Type duloxetine 60 mg capsule,delayed 60 mg PO DAILY 01/06/25 01/05/25 09:00 History release digoxin 125 mcg (0.125 mg) tablet 125 mcg PO DAILY #90 tabs 07/11/24 01/06/25 01/05/25 08:00 Rx clopidogrel 75 mg tablet 75 mg PO DAILY 90 days #90 t abs 08/19/24 01/06/25 01/05/25 09:00 Rx metoprolol tartrate 25 mg tablet 25 mg PO BID@0900,210 0 #180 tabs 08/25/24 01/06/25 01/05/25 09:00 Rx potassium chloride 10 mEq 10 meq PO DAILY #90 tabs 01/06/25 01/05/25 09:00 Rx tablet,extended release (Klor-Con) amiodarone 200 mg tablet (Pacerone) 200 mg PO DAILY #9 0 tabs 09/29/24 01/06/25 01/05/25 08:00 Rx evolocumab 140 mg/mL subcutaneous 140 mg SUBCUT Q14D 0 10/05/24 01/06/25 12/26/24 History pen injector (Repatha SureSteveick) empagliflozin 10 mg tablet 10 mg PO DAILY #90 tabs 01/06/25 01/05/25 09:00 Rx (Jardiance) bumetanide 1 mg tablet See Rx Instructions .Route 0 11/14/24 01/06/25 01/05/25 08:00 Rx .COMPLEX #90 tabs sacubitril 24 mg-valsartan 26 mg 0.5 tab PO BID #60 ta bs 11/28/24 01/06/25 01/05/25 09:00 Rx tablet (Entresto) apixaban 5 mg tablet (Eliquis) See Rx Instructions .Ro aj 12/20/24 01/06/25 01/05/25 08:00 Rx .COMPLEX #180 tabs cetirizine 10 mg tablet (Zyrtec) 10 mg PO QPM 01/06/25 01/06/25 01/04/25 19:00 History Allergies Allergy/AdvReac Type Severity Reaction Status Date / Time simvastatin Allergy Severe N/V Verified 01/05/25 20:38 Current Medications Generic Name Dose Route Start Last Admin Trade Name Keily PRN Reason Stop Dose Admin Docusate Sodium 100 mg 01/06/25 05:00 01/06/25 05:12 Docusate Sodium 100 Mg Capsule PO 100 mg BID RASHAAD Administration Heparin Sodium (Porcine) 5,000 unit 01/06/25 01:15 01/06/25 02:23 Heparin 5,000 Unit/Ml Inj 1 Ml SUBCUT 5,000 unit Q12H RASHAAD Administration Methylprednisolone Sodium Succinate 40 mg 01/06/25 01:30 01/06/25 02:19 Methylprednisolone Sod Succ 40 Mg/Ml Inj IVP 40 mg Q12H RASHAAD Administration Pantoprazole Sodium 40 mg 01/06/25 05:00 01/06/25 05:[address] 40 Mg Tablet PO 40 mg DAILY RASHAAD Administration Spironolactone 25 mg 01/06/25 05:00 01/06/25 05:12 Spironolactone 25 Mg Tablet PO 25 mg DAILY RASHAAD Administration PFSH Acute 2 PFSH: Medical History Pulmonary hypertension Atrial fibrillation with rapid ventricular response Acute exacerbation of CHF (congestive heart failure) Obstructive sleep apnea SOBOE (shortness of breath on exertion) Postherpetic neuralgia Tobacco use Exercise intolerance Allergic rhinitis Shingles Hypertension Paroxysmal atrial fibrillation Labile blood pressure Dyspnea Hyperlipidemia GIA on CPAP Dizziness Chest discomfort Surgical History No history of previous surgery Family History Father CAD (coronary artery disease) Stroke, Onset Age: 35 Grandmother Cancer Mother Stroke Sister Stroke Denies family history of Diabetes Clotting disorder Dementia Chronic kidney disease (CKD) Suicide Anesthesia complication Bleeding disorder Lung disease Social History Smoking and tobacco/nicotine status: former use of tobacco/nicotine Alcohol intake: current Alcohol intake frequency: few times a month Substance/Drug Use: never Vitals/I&O/Wt Last Vital Signs Temp 97.4 F L 01/06/25 07:36 Pulse 81 01/06/25 07:36 Resp 22 H 01/06/25 07:36 BP 123/90 01/06/25 07:36 Pulse Ox 99 01/06/25 07:36 O2 Del Method Room Air 01/06/25 07:36 01/05/25 01/06/25 01/06/25 22:59 06:59 14:59 Intake Total 900 / 900 240 / 240 Output Total 950 / 950 800 / 800 Balance -50 / -50 -560 / -560 Weight last 48 hrs Weight 244 lb Weight 238 lb 1.588 oz Weight 244 lb 11.41 oz Weight 217 lb Physical Exam 2 Const: COMMON NORMALS: no acute distress and patient oriented x3 Chest: COMMONS NORMALS: normal inspection of the chest and normal palpation of entire chest wall CHEST: Yes Symmetrical chest wall rise Resp: COMMON NORMALS: normal respiratory effort, No retractions and No use of accessory muscles EFFORT & INSPECTION: Yes symmetric chest movement A USCULTATION: crackles Laterality: bilateral and posterior Cardio: COMMON NORMALS: S1 normal heart sound present, S2 normal heart sound present, No gallops present (Cardio), No clicks present (Cardio), No murmurs present (Cardio) and No rub (Cardio) RHYTHM: abnormal rhythm irregularly irregular HEART SOUNDS: S1 normal heart sound present and S2 normal heart sound present PERIPHERAL PULSES: radial pulses present, posterior tibial pulses present and dorsalis pedis present Extremity: GENERAL: Yes edema (3+ pitting edema bilateral lower extremities below the knee) Neuro: COMMON NORMALS: patient oriented x3 and moves all extremities Psych: COMMON NORMALS: mental status grossly normal and cooperative Data 01/06/25 03:09 01/06/25 03:47 A&P Assessment and plan 1. Systolic CHF with reduced left ventricular function, NYHA class 2: 2. Acute exacerbation of CHF (congestive heart failure): 3. Paroxysmal atrial fibrillation: 4. Non-ischemic cardiomyopathy: 5. Chronic renal disease: 6. Dyspnea: 7. Edema of both lower legs: Plan: Continue diuresis with IV Bumex and metolazone. He qualifies for BIZTALK DEVELOPER-D based on EKG, this is ultimately under determination by Dr. Pinto his innovation manager in [place], will discuss. Continue amiodarone 200 mg daily, can restart Eliquis, Jardiance, Plavix, metoprolol tartrate 25 mg twice a day, digoxin 125mcg daily. PDMP PDMP Reviewed: Not Reviewed Coding Level of Care Code Acute Code for Chg Fwd Diagnoses Systolic CHF with reduced left ventricular function, NYHA class 2 I50.20 Acute exacerbation of CHF (congestive heart failure) I50.9 Paroxysmal atrial fibrillation I48.0 Non-ischemic cardiomyopathy I42.8 Chronic renal disease N18.9 Dyspnea R06.00 Edema of both lower legs R60.0
--- NOTE | 2025-01-06 13:36 | P.MISC_ITS ---
Miscellaneous Note Purpose of Documentation: case of heart failure with reduced ejection fracture, came with features of fluid overload and wt gain more than 20 pounds Note: patient clinically examined, having bilateral pedal edema and mild insp crepts on clinical exam vitals and labs reviewed and managed accordingly increase transaminitis and KERON on CKD: - CT abd pelvis and US abd with acute he patitis work up to follow Acute on chronic heart failure exacerbation: consulted cardiology for further management the patient was on fluids over night and discontinued, with continuation of the diuresis. intake and output monitoring monitor hemodynamics electrolytes monitoring and correction everyday since pt is on iv diuretics daily wt base analysis reconcile home medications, ( of note: the patient home meds were on hold and locked and were not reconciled overnight called IT and the assigned nurse to help with the situation and to resume his medications accordingly based on his comorbidities) KERON on CKD: likely congestive kidneys, followup I/O renal parameters electrolytes correction and monitoring
[2025-01-06 14:24] LABS: Hepatitis A Antibody IgM Non-Reactive (Nonreactive); Hepatitis B Surface Antigen Non-Reactive (Nonreactive)
[2025-01-06 14:48] LABS: Digoxin 0.9 ng/mL (0.6-1.2)
[2025-01-07] VITALS (7 sets, daily range): BP systolic 107–124; BP diastolic 77–88; PULSE 77–95; RESP 16–20; TEMP 36–36.7; O2SAT 92–97; BMI 33.0
[2025-01-07] MEDS: methylPREDNISolone sod succ 40 mg/mL INJ IVP (02:17)
[2025-01-07] MEDS: bumetanide 0.25 mg/mL SDV 4 mL 1 MG IVP ×2 (02:17→15:09)
[2025-01-07 03:30] LABS: Hematocrit 42.5 % (37-53); Hemoglobin 13.10 g/dL (11.27-16.99); Mean Corpuscular HGB Conc 30.8 g/dL (30-55); Mean Corpuscular Hemoglobin 27.8 pg (27-33); Mean Corpuscular Volume 90.2 fl (82-101); Nucleated Red Blood Cells % 0.7 %; Platelet Count 325 10^3/cmm (157-399); Red Blood Count 4.71 10^6/uL (3.85-5.65); White Blood Count 5.91 10^3/uL (3.29-11.43)
[2025-01-07 03:47] LABS: Alanine Aminotransferase 467 U/L (0-41); Albumin Level 3.8 g/dL (3.5-5.2); Alkaline Phosphatase 277 U/L (40-130); Anion Gap 20.6 (5-19); Aspartate Amino Transferase 109 U/L (0-40); Blood Urea Nitrogen 46 mg/dL (8-23); Calcium 9.4 mg/dL (8.5-10.5); Carbon Dioxide 22 mmol/L (22-29); Chloride 94 mmol/L (98-107); Creatinine Clr Calc Pharmacy 50.3488; Globulin 2.9 g/dL (1.3-4.6); Glucose 209 mg/dL (65-115); Magnesium 2.5 mg/dL (1.7-2.3); Osmolality Calculated 294 mOsm/kg (285-295); Potassium 3.6 mmol/L (3.5-5.1); Sodium 133 mmol/L (136-145); Total Protein 6.7 g/dL (6.6-8.7)
[2025-01-07] MEDS: DAPAGLIFLOZIN 5 MG TABLET PO (04:47)
--- NOTE | 2025-01-07 14:43 | P.PN_ITS ---
Subjective 2 Subjective: The patient was seen in the morning and was getting haircut with the help of the nurse and was feeling happy. He was feeling better and mentioned that his shortness of breath has improved relative to yesterday on walking. Still having bilateral lower leg edema Vitals/I&O/Wt Last Vital Signs Temp 98.1 F 01/07/25 12:00 Pulse 93 01/07/25 12:00 Resp 16 01/07/25 12:00 BP 120/77 01/07/25 12:00 Pulse Ox 97 01/07/25 12:00 O2 Del Method Room Air 01/07/25 03:00 01/06/25 01/07/25 01/07/25 22:59 06:59 14:59 Intake Total 720 / 720 Output Total 400 / 1750 2075 / 3825 700 / 700 Balance -400 / -1390 -2075 / -3465 20 / Weight last 48 hrs Weight 107.4 kg Weight 110.677 kg Weight 108 kg Weight 111 kg Weight 98.43 kg Physical Exam 2 Narrative: General: Alert and oriented, sitting on the chair without any discomfort, at room air HEENT: Normocephalic, atraumatic, grossly unremarkable exam Cardio: normal rate rhythm, normal S1-S2 without any murmurs, JVD looks normal Respiratory: Bilateral equal air entry with basal inspiratory crackles heard, no wheezes GI: Abdomen soft, nontender, nondistended, normoactive bowel sounds present all 4 quadrants, Neuro: intact cranial nerves motor and sensory and cerebellar/coordination function without any focal neurological deficit Behavior: Appropriate and cooperative Extremities: Adequate pulses with bilateral pedal edema up to knees Data 01/07/25 02:52 01/07/25 02:52 A&P Assessment and plan 1. Acute exacerbation of CHF (congestive heart failure): Cardiology consulted Patient started on Bumex 1 mg IV twice daily To hold metolazone since the patient renal functions are a little bit on the higher side and having hyponatremia. Dapagliflozin 5 mg daily Continue clopidogrel 75 mg daily. 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 Pinto in [place] 2. Paroxysmal atrial fibrillation: Rooms Director on board and to follow the recommendations Continue on metoprolol 25 twice daily Digoxin 125 mcg daily Continue amiodarone 200 mg daily Continue apixaban 5 mg twice daily Telemetry monitoring 3. Edema of both lower legs: Patient having acute on chronic congestive heart failure Continue diuresis as per cardiology recommendation with the resumption of his heart failure medication Intake and output monitoring along with renal functions and daily weight base analysis 4. Non-ischemic cardiomyopathy: Continue medications as mentioned above for heart failure 5. Benign essential HTN: Patient on diuretics at the moment and heart failure medications. Continue to monitor blood pressure 6. Hyperlipidemia: Patient home medication does not include statins, however the patient liver enzymes are increased that could be related to congestive hepatomegaly secondary to heart failure exacerbation Liver enzymes improving Hold statins at the moment as inpatient and once liver enzymes are less than 3 times higher limit of normal then to consider starting it at low-dose. 7. Chronic renal disease: Renal functions more or less stable a little bit on the higher side. Patient on diuresis with metolazone and Bumex Hold metolazone Monitor intake and output with renal functions 8. Transaminitis: Increased liver enzymes likely related to congestive hepatomegaly since the ultrasound showed features of hepatic steatosis and mild sludge in the gallbladder with normal common bile duct. Liver enzyme improving Continue to monitor PDMP PDMP Reviewed: Not Reviewed Attestations 2 Medical Necessity Statement*: Patient will stay more than 2 midnights for the management of his heart failure exacerbation and needing adequate diuresis Time Spent in Patient Care: 16 - 35 minutes (>than 50% of time sp ent in counselling and/or direct pt care on unit) . Other Attestations: Patient condition has been discussed at length with the patient/family, I have independently reviewed the chart labs imaging/diagnostics/EKG. the goals of care and code status with the patient/family/NOK/legal underwriting service representative, and documented accordingly. The management has been done according to the current clinical condition with respect to patient goals of care and based on recommendations/guidelines. The patient/family has been informed about the current condition and further plan of care. Agreed with the plan of care and understood without any language barrier. Every effort was made to ensure accuracy of pretzel cooker. Any obvious errors or omissions should be clarified with the author of the document. Coding Level of Care Code 91564 Diagnoses Acute exacerbation of CHF (congestive heart failure) I50.23 Heart failure type: systolic Paroxysmal atrial fibrillation I48.0 Edema of both lower legs R60.0 Non-ischemic cardiomyopathy I42.8 Benign essential HTN I10 Hyperlipidemia E78.5 Chronic renal disease N18.9 Transaminitis R74.01
--- NOTE | 2025-01-07 15:23 | P.PN_ITS ---
Subjective 2 Subjective: Breathing getting better. Right leg less swollen but left leg with no significant change yet Vitals/I&O/Wt Last Vital Signs Temp 98.1 F 01/07/25 12:00 Pulse 93 01/07/25 12:00 Resp 16 01/07/25 12:00 BP 120/77 01/07/25 12:00 Pulse Ox 97 01/07/25 12:00 O2 Del Method Room Air 01/07/25 03:00 01/07/25 01/07/25 01/07/25 06:59 14:59 22:59 Intake Total 720 / 720 Output Total 2075 / 3825 700 / 700 Balance -2075 / -3465 20 Weight last 48 hrs Weight 236 lb 12.423 oz Weight 244 lb Weight 238 lb 1.588 oz Weight 244 lb 11.41 oz Weight 217 lb Physical Exam 2 Narrative: General: In no acute distress Neck: No jugular venous distention or carotid bruits Heart: irreg irreg Lungs: Normal respiratory effort with no use of intercostal muscles, clear lungs sounds to auscultation Extremities: 2+ BLE edema Neuro: Alert and oriented x 3 Data 01/07/25 02:52 01/07/25 02:52 A&P Assessment and plan 1. Transaminitis: - improving 2. Chronic renal disease: Cr 1.7 --> 1.9, sodum milldy decreased 3. Paroxysmal atrial fibrillation: rate controlled, asymptomatic 4. Benign essential HTN: well controlled 5. 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 CAD (coronary artery disease): denies any CP today PDMP PDMP Reviewed: Not Reviewed Attestations 2 Medical Necessity Statement*: Requires 2 more midnights in the hospital due to congestive heart failure exacerbation Coding Level of Care Code 53080 Diagnoses Transaminitis R74.01 Chronic renal disease N18.9 Paroxysmal atrial fibrillation I48.0 Benign essential HTN I10 Acute exacerbation of CHF (congestive heart failure) I50.9 CAD (coronary artery disease) I25.10
[2025-01-08] VITALS (12 sets, daily range): BP systolic 99–125; BP diastolic 65–87; PULSE 60–81; RESP 12–20; TEMP 35.6–36.6; O2SAT 94–99
[2025-01-08] MEDS: bumetanide 0.25 mg/mL SDV 4 mL 1 MG IVP (01:43)
[2025-01-08] MEDS: DAPAGLIFLOZIN 5 MG TABLET PO (05:53)
[2025-01-08 06:06] LABS: Hematocrit 43.3 % (37-53); Hemoglobin 13.30 g/dL (11.27-16.99); Mean Corpuscular HGB Conc 30.7 g/dL (30-55); Mean Corpuscular Hemoglobin 28.1 pg (27-33); Mean Corpuscular Volume 91.4 fl (82-101); Nucleated Red Blood Cells % 0.2 %; Platelet Count 282 10^3/cmm (157-399); Red Blood Count 4.74 10^6/uL (3.85-5.65); White Blood Count 8.85 10^3/uL (3.29-11.43)
[2025-01-08 06:17] LABS: Alanine Aminotransferase 312 U/L (0-41); Albumin Level 3.8 g/dL (3.5-5.2); Alkaline Phosphatase 238 U/L (40-130); Anion Gap 16.4 (5-19); Aspartate Amino Transferase 49 U/L (0-40); Blood Urea Nitrogen 52 mg/dL (8-23); Calcium 9.7 mg/dL (8.5-10.5); Carbon Dioxide 32 mmol/L (22-29); Chloride 91 mmol/L (98-107); Globulin 2.4 g/dL (1.3-4.6); Glucose 115 mg/dL (65-115); Magnesium 2.4 mg/dL (1.7-2.3); Osmolality Calculated 297 mOsm/kg (285-295); Potassium 3.4 mmol/L (3.5-5.1); Sodium 136 mmol/L (136-145); Total Protein 6.2 g/dL (6.6-8.7)
[2025-01-08 06:22] LABS: Creatinine Clr Calc Pharmacy 44.0306
--- NOTE | 2025-01-08 12:25 | PM.PN ---
Subjective Subjective: swelling and SOB continue to improved but still volume overload and with some BRYAN in hallway walking Vitals/I&O/Wt Last Vital Signs Temp 97.8 F 01/08/25 11:19 Pulse 63 01/08/25 11:19 Resp 20 H 01/08/25 11:19 BP 108/67 01/08/25 11:19 Pulse Ox 94 01/08/25 11:19 O2 Del Method Room Air 01/08/25 11:19 FiO2 21 01/08/25 08:09 01/07/25 01/08/25 01/08/25 22:59 05:59 14:59 Intake Total 1600 / 2320 930 / 3250 480 / 480 Output Total 2800 / 3500 4150 / 7650 1999 Balance -1200 / -1180 -3220 / -4400 -1520 / -1520 Weight last 48 hrs Weight 227 lb 8.273 oz Weight 236 lb 12.423 oz Physical Exam Narrative: General: In no acute distress Neck: No jugular venous distention or carotid bruits Heart: irreg irreg Lungs: Normal respiratory effort with no use of intercostal muscles, clear lungs sounds to auscultation Extremities: 2+ BLE edema Neuro: Alert and oriented x 3 Data 01/08/25 05:51 01/08/25 05:51 A&P Assessment and plan 1. Transaminitis: - improving with diuresis 2. Chronic renal disease: Rising Cr with diuresis Cr 1.7 --> 1.9 --> 2.1 metolazone held yesterday Hold bumex today 3. Paroxysmal atrial fibrillation: rate controlled, asymptomatic continue OAC, dig, metoprolol and amio 4. Benign essential HTN: well controlled 5. 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 CAD (coronary artery disease): denies any CP today continue clopidogrel and metoprolol on Repatha as outpatient PDMP PDMP Reviewed: Not Reviewed Attestations Medical Necessity Statement*: Needs 2 more midnights in the hospital due to congestive heart failure Coding Level of Care Code Acute Code for Chg Fwd Diagnoses Transaminitis R74.01 Chronic renal disease N18.9 Paroxysmal atrial fibrillation I48.0 Benign essential HTN I10 Acute exacerbation of CHF (congestive heart failure) I50.9 CAD (coronary artery disease) I25.10
--- NOTE | 2025-01-08 12:33 | PM.PN ---
Subjective Subjective: swelling and SOB continue to improved and LLE also getting better Vitals/I&O/Wt Last Vital Signs Temp 97.8 F 01/08/25 11:19 Pulse 63 01/08/25 11:19 Resp 20 H 01/08/25 11:19 BP 108/67 01/08/25 11:19 Pulse Ox 94 01/08/25 11:19 O2 Del Method Room Air 01/08/25 11:19 FiO2 21 01/08/25 08:09 01/07/25 01/08/25 01/08/25 22:59 05:59 14:59 Intake Total 1600 / 2320 930 / 3250 480 / 480 Output Total 2800 / 3500 4150 / 7650 1999 Balance -1200 / -1180 -3220 / -4400 -1520 / -1520 Weight last 48 hrs Weight 103.2 kg Weight 107.4 kg Physical Exam Narrative: General: Alert and oriented, sitting on the chair without any discomfort, at room air HEENT: Normocephalic, atraumatic, grossly unremarkable exam Cardio: normal rate rhythm, normal S1-S2 without any murmurs, JVD looks normal Respiratory: Bilateral equal air entry without basal crepts or wheezes, no stridor GI: Abdomen soft, nontender, nondistended, normoactive bowel sounds present all 4 quadrants, Neuro: intact cranial nerves motor and sensory and cerebellar/coordination function without any focal neurological deficit Behavior: Appropriate and cooperative Extremities: Adequate pulses with bilateral pedal edema up to knees relatively better than yesterday Data 01/08/25 05:51 01/08/25 05:51 A&P Assessment and plan 1. Acute exacerbation of CHF (congestive heart failure): Cardiology consulted and onboard patient has been on diuresis and lost around 10 pounds or more since time of admission based on I/Os, getting better hold diuretics today since renal parametrs are bit deranged will resume jardiance and entresto when cr improves and bp stable Continue clopidogrel 75 mg daily. 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 Pinto in [place] 2. Paroxysmal atrial fibrillation: Comedian on board and to follow the recommendations Continue on metoprolol 25 twice daily Digoxin 125 mcg daily Continue amiodarone 200 mg daily Continue apixaban 5 mg twice daily Telemetry monitoring 3. MARIOLA (acute kidney injury): hold diuretics today since renal parametrs are bit deranged likely pre-renal with overdiuresis avoid nephrotoxic drugs and adjust meds dose according to the renal functions will resume jardiance and entresto when cr improves and bp stable monitor kidney functions daily with I/O 4. Edema of both lower legs: Patient having acute on chronic congestive heart failure currently improving, hold diuretics today since renal parametrs are bit deranged and later to re-assess tomorrow for futher evaluation 5. Non-ischemic cardiomyopathy: Continue medications as mentioned above for heart failure 6. Benign essential HTN: stable, continue to monitor on heart failure medications 7. Mixed hyperlipidemia: Patient home medication does not include statins, however the patient liver enzymes are increased that could be related to congestive hepatomegaly secondary to heart failure exacerbation Hold statins at the moment as inpatient and once liver enzymes are less than 3 times higher limit of normal then to consider starting it at low-dose. Liver enzymes improving and follow Liver US 8. Chronic renal disease: Renal functions more or less stable a little bit on the higher side. Patient on diuresis with metolazone and Bumex hold diuretics today since renal parametrs are bit deranged Monitor intake and output with renal functions 9. Transaminitis: Increased liver enzymes likely related to congestive hepatomegaly since the ultrasound showed features of hepatic steatosis and mild sludge in the gallbladder with normal common bile duct. Liver enzyme improving Continue to monitor PDMP PDMP Reviewed: Not Reviewed Attestations Medical Necessity Statement*: Patient will stay overnight for the management of his heart failure exacerbation and needing adequate diuresis and Mariola Time Spent in Patient Care: 16 - 35 minutes (>than 50% of time spent in counselling and/or direct pt care on unit). Other Attestations: Patient condition has been discussed at length with the patient/family, I have independently reviewed the chart labs imaging/diagnostics/EKG. the goals of care and code status with the patient/family/NOK/legal hardware supplies sales representative, and documented accordingly. The management has been done according to the current clinical condition with respect to patient goals of care and based on recommendations/guidelines. The patient/family has been informed about the current condition and further plan of care. Agreed with the plan of care and understood without any language barrier. Every effort was made to ensure accuracy of sub plant manager. Any obvious errors or omissions should be clarified with the author of the document. Coding Level of Care Code 16613 Diagnoses Acute exacerbation of CHF (congestive heart failure) I50.23 Heart failure type: systolic Paroxysmal atrial fibrillation I48.0 MARIOLA (acute kidney injury) N17.9 Edema of both lower legs R60.0 Non-ischemic cardiomyopathy I42.8 Benign essential HTN I10 Mixed hyperlipidemia E78.2 Hyperlipidemia type: mixed hyperlipidemia Chronic renal disease N18.9 Transaminitis R74.01
[2025-01-08] MEDS: morphine 4 mg/mL SDV 1 mL 2 MG IVP (21:41)
[2025-01-09] VITALS (8 sets, daily range): BP systolic 97–111; BP diastolic 67–81; PULSE 67–88; RESP 14–22; TEMP 36–36.8; O2SAT 93–98
[2025-01-09 05:00] LABS: Hematocrit 42.9 % (37-53); Hemoglobin 13.20 g/dL (11.27-16.99); Mean Corpuscular HGB Conc 30.8 g/dL (30-55); Mean Corpuscular Hemoglobin 27.9 pg (27-33); Mean Corpuscular Volume 90.7 fl (82-101); Nucleated Red Blood Cells % 0 %; Platelet Count 250 10^3/cmm (157-399); Red Blood Count 4.73 10^6/uL (3.85-5.65); White Blood Count 6.04 10^3/uL (3.29-11.43)
[2025-01-09] MEDS: DAPAGLIFLOZIN 5 MG TABLET PO (05:25)
--- NOTE | 2025-01-09 09:15 | PC.CHAP ---
Pastoral Care Encounter/Spiritual Assessment Type of Contact [] Declined animal cytologist visit [] Patient/Family/Request visit [] Outpatient visit [] Follow-up visit [] Physician referral [] Code/Alert [x] Routine visit [] Staff referral [] Actively dying [] Patient sleeping [] Family support [] [] Out of room [] Palliative care [] [] Receiving care in room [] Pre-surgical visit [] Trauma [] Long length of stay [] ICU visit [] Other: Relational/Emotional Strength [] Patient feels connected with others/family/visitors/staff [] Distress [] Loneliness/isolation [] Abandonment Spirituality of Patient [x] Person of Mayuri [] Attends Pentecostal of their Mayuri [x] Believes in Prayer [] Reads Bible or Orthodox materials [] There are Spiritual issues to be addressed Rehabilitation Specialist Interventions [x Prayer [x] Active listening [] Non-anxious presence [] Spiritual/emotional support [] Crisis/trauma care [] Spiritual counseling [] Bereavement support [] Provided bereavement packet [x] Provided Bible/devotional materials [] Provided toy/stuffed animal, coloring book to patient or family member [] Provided Communion [] Anointing/[place] [] Salvation [x] Completed spiritual assessment [] Other: Impact on Illness or Injury [] Angry [] Fearful [] Anxious [] Often cries [] Exhaustion [] Unable to work [] Unable to attend hoahaoism [] Unable to walk/stand [] Unable to read [] Unable to drive [] Unable to eat/drink [] Unable to sleep [] Unable to be with family [] Patient intubated [] Other: Summary Time spent with patient 5 min
--- NOTE | 2025-01-09 10:23 | P.PN_ITS ---
<Statement entered by Avery Denney MD - 01/09/25 18:17> Patient was evaluated and cared for in conjunction with an advanced practice practitioner. I personally saw the patient and reviewed the chart and all pertinent data. I discussed the patient in detail with the advanced practice practitioner. Please see their note for complete assessment and agreed upon plan of care for the patient. Held bumex yesterday due to rising Cr Cr trending down now resume bumex 1mg bid repeat bmp in am repeat echo ordered to reassess LVF Subjective 2 Subjective: Breathing is improved, still has some significant LE edema. Creatinine improved to 1.8. Vitals/I&O/Wt Last Vital Signs Temp 97.2 F L 01/09/25 07:03 Pulse 73 01/09/25 07:03 Resp 22 H 01/09/25 07:03 BP 97/67 01/09/25 07:03 Pulse Ox 97 01/09/25 07:03 O2 Del Method BiPAP 01/09/25 07:03 FiO2 21 01/08/25 20:03 01/08/25 01/09/25 01/09/25 22:59 06:59 14:59 Intake Total 480 / 1500 300 / 1500 480 / 480 Output Total 850 / 3550 700 / 3550 Balance -370 / -2050 -400 / -2050 480 / 480 Weight last 48 hrs Weight 213 lb 10.047 oz Weight 213 lb 10.047 oz Weight 227 lb 8.273 oz Physical Exam 2 Const: COMMON NORMALS: no acute distress and patient oriented x3 GENERAL APPEARANCE: cooperative and comfortable ORIENTATION/CONSCIOUSNESS: Yes awake, Yes oriented to person, Yes oriented to place and Yes oriented to time Chest: COMMONS NORMALS: normal inspection of the chest and normal palpation of entire chest wall CHEST: Yes Symmetrical chest wall rise Resp: COMMON NORMALS: normal respiratory effort, No retractions, No use of accessory muscles and clear to auscultation bilaterally EFFORT & INSPECTION: Yes symmetric chest movement AUSCULTATION: clear to auscultation bilaterally Cardio: COMMON NORMALS: regular rate, S1 normal heart sound present, S2 normal heart sound present, No gallops present (Cardio), No clicks present (Cardio), No murmurs present (Cardio) and No rub (Cardio) RATE: regular rate RHYTHM: a bnormal rhythm irregularly irregular HEART SOUNDS: S1 normal heart sound present and S2 normal heart sound present PERIPHERAL PULSES: radial pulses present Extremity: GENERAL: Yes edema (2+ pitting edema bilat LE below knee) Neuro: COMMON NORMALS: patient oriented x3 and moves all extremities S ENSORIUM/ORIENTATION: Yes oriented to person, Yes oriented to place and Yes oriented to time Data 01/09/25 04:50 01/09/25 10:07 A&P Assessment and plan 1. Chronic renal disease: 2. Paroxysmal atrial fibrillation: 3. Systolic CHF with reduced left ventricular function, NYHA class 2: 4. Benign essential HTN: 5. CAD (coronary artery disease): Plan: Continue diuresis with Bumex 1 mg BID, will obtain limited echocardiogram today to provide for Dr Pinto, BAG MACHINE OPERATOR HELPER-D planned for later this month. Continue amiodarone 200mg daily, metoprolol, Plavix, digoxin 125mcg daily. Encouraged him to elevate his legs periodically. He is ambulating several times a day. PDMP PDMP Reviewed: Not Reviewed Attestations 2 Medical Necessity Statement*: Continued IV diuresis Coding Level of Care Code Acute Code for Chg Fwd Diagnoses Chronic renal disease N18.9 Paroxysmal atrial fibrillation I48.0 Systolic CHF with reduced left ventricular function, NYHA class 2 I50.20 Benign essential HTN I10 CAD (coronary artery disease) I25.10
--- NOTE | 2025-01-09 10:30 | USCV_ITS ---
Colin Moya Age: 64 Gender: M : 1960 Exam Date: 01/09/2025 13:53 Ordering Phys: Marichuy Thomas Technologist: SAEID Exam Location: [facility] [place] Indication: Systolic HF BP: 110 / 68 HR: Rhythm: Sinus Technical Quality: Adequate MEASUREMENTS (Male / Female) Normal Values 2D ECHO LV Diastolic Diameter PLAX 8.4 cm 4.2 - 5.9 / 3.9 - 5.3 cm IVS Diastolic Thickness 0.7 cm 0.6 - 1.0 / 0.6 - 0.9 cm IVS Systolic Thickness 0.8 cm LVPW Diastolic Thickness 0.9 cm 0.6 - 1.0 / 0.6 - 0.9 cm LVPW Systolic Thickness 0.9 cm LVOT Diameter 2.1 cm LV Ejection Fraction 2D Teich 3.0 % LV Ejection Fraction MOD 4C 20.2 % LV Ejection Fraction MOD 2C 33.8 % LV Ejection Fraction 2C AL 35.7 % LA Diameter 3.6 cm RA Systolic Volume 4C AL 85.5 ml RA Systolic Volume 4C MOD 81.4 ml LA Sys Volume AL 105.8 cm cubed LA Sys Volume Index AL 47.6 cm cubed/m squared Aorta at Sinotubular Diameter 2.7 cm IVC Diameter 2.2 cm M-MODE LA Ao Ratio MM 1.9 AV Cusp Separation MM 1.8 cm FINDINGS Left Ventricle Severe diffuse hypokinesia of the left ventricle with ejection fraction around 15-20 %. Moderately dilated LV cavity Right Ventricle Moderately increased right ventricular size. Mildly decreased right ventricular systolic function. Right Atrium Moderately increased right atrial size. Left Atrium Severely increased left atrial volume 47.6 ml/m squared. IA Septum Appears to be intact Mitral Valve Moderate mitral annular calcification. Aortic Valve Thickened aortic valve. Tricuspid Valve No gross abnormalities noted Pulmonic Valve Pulmonic valve not well visualized. Pericardium No pericardial effusion. Aorta Normal aortic annulus size. IVC Normal inferior vena cava. CONCLUSIONS Severe diffuse hypokinesia of the left ventricle with an ejection fraction around 15-20 %. Moderately increased right ventricular size. Mildly decreased right ventricular systolic function. Moderately increased right atrial size. Severely increased left atrial volume 47.6 ml/m squared. Moderate mitral annular calcification. Thickened aortic valve. Moderately dilated LV cavity. There is no pericardial effusion. There are no intracardiac masses. Compared to the study from 10/07/2024, there may not be a significant change Dr Terese Bustillos MD FACC (Electronically Signed) Final Date: 09 January 2025 16:26 S
[2025-01-09 10:33] LABS: Albumin Level 3.4 g/dL (3.5-5.2); Alkaline Phosphatase 196 U/L (40-130); Blood Urea Nitrogen 45 mg/dL (8-23); Calcium 9.4 mg/dL (8.5-10.5); Carbon Dioxide 32 mmol/L (22-29); Chloride 92 mmol/L (98-107); Creatinine Clr Calc Pharmacy 49.8718; Globulin 2.6 g/dL (1.3-4.6); Glucose 100 mg/dL (65-115); Magnesium 2.4 mg/dL (1.7-2.3); Osmolality Calculated 292 mOsm/kg (285-295); Sodium 135 mmol/L (136-145); Total Protein 6.0 g/dL (6.6-8.7)
[2025-01-09 10:36] LABS: Alanine Aminotransferase 199 U/L (0-41); Anion Gap 14.7 (5-19); Aspartate Amino Transferase 46 U/L (0-40); Potassium 3.7 mmol/L (3.5-5.1)
[2025-01-09] MEDS: bumetanide 0.25 mg/mL SDV 4 mL 1 MG IVP (12:59)
--- NOTE | 2025-01-09 13:31 | P.PN_ITS ---
Subjective 2 Subjective: Creatinine improving today to 1.8. Continues to have lower extremity edema. Saturating 98% on room air. Medications: Reviewed: Yes Vitals/I&O/Wt Last Vital Signs Temp 96.9 F L 01/09/25 11:11 Pulse 70 01/09/25 11:11 Resp 20 H 01/09/25 11:11 BP 110/68 01/09/25 11:11 Pulse Ox 98 01/09/25 11:11 O2 Del Method Room Air 01/09/25 11:11 FiO2 21 01/08/25 20:03 01/08/25 01/09/25 01/09/25 22:59 06:59 14:59 Intake Total 480 / 1200 300 / 1500 960 / 960 Output Total 850 / 2850 700 / 3550 650 / 650 Balance -370 / -1650 -400 / -2050 310 / 310 Weight last 48 hrs Weight 96.9 kg Weight 96.9 kg Weight 103.2 kg Physical Exam 2 Narrative: General: No acute distress, AO x3 HEENT: PERRLA, pupils bilaterally equal and reactive, pallors not present Chest: Normal vesicular breath sounds, no added sounds, equal good air entry bilaterally CVS: S1-S2 regular, no murmurs, no tachycardia, no gallops, no rubs Abdomen: Soft, nontender, no organomegaly, bowel sounds present Neuro: No focal deficits, no facial deformity, AO x3, power 5/5 in all limbs Extremities: 2+ lower extremity edema bilaterally Data 01/09/25 04:50 01/09/25 10:07 A&P Assessment and plan 1. Acute exacerbation of CHF (congestive heart failure): Cardiology consulted and onboard patient has been on diuresis and lost around 10 pounds or more since time of admission based on I/Os, getting better hold diuretics today since renal parametrs are bit deranged will resume jardiance and entresto when cr improves and bp stable Continue clopidogrel 75 mg daily. 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 Pinto in [place] 2. Paroxysmal atrial fibrillation: Optics Manufacturing Technician on board and to follow the recommendations Continue on metoprolol 25 twice daily Digoxin 125 mcg daily Continue amiodarone 200 mg daily Continue apixaban 5 mg twice daily Telemetry monitoring 3. KERON (acute kidney injury): hold diuretics today since renal parametrs are bit deranged likely pre-renal with overdiuresis avoid nephrotoxic drugs and adjust meds dose according to the renal functions will resume jardiance and entresto when cr improves and bp stable monitor kidney functions daily with I/O 4. Edema of both lower legs: Patient having acute on chronic congestive heart failure currently improving, hold diuretics today since renal parametrs are bit deranged and later to re-assess tomorrow for futher evaluation 5. Non-ischemic cardiomyopathy: Continue medications as mentioned above for heart failure 6. Benign essential HTN: stable, continue to monitor on heart failure medications 7. Mixed hyperlipidemia: Patient home medication does not include statins, however the patient liver enzymes are increased that could be related to congestive hepatomegaly secondary to heart failure exacerbation Hold statins at the moment as inpatient and once liver enzymes are less than 3 times higher limit of normal then to consider starting it at low-dose. Liver enzymes improving and follow Liver US 8. Chronic renal disease: Renal functions more or less stable a little bit on the higher side. Patient on diuresis with metolazone and Bumex hold diuretics today since renal parametrs are bit deranged Monitor intake and output with renal functions 9. Transaminitis: Increased liver enzymes likely related to congestive hepatomegaly since the ultrasound showed features of hepatic steatosis and mild sludge in the gallbladder with normal common bile duct. Liver enzyme improving Continue to monitor Plan: January 09, 2025 Chart reviewed. 64-year-old male with a past medical history of CHF, last known EF at 20% from October 2024, admitted for acute on chronic systolic heart failure. Course complicated by KERON. Review of past chart shows that baseline creatinine has been between 1.6-2.0 more recently. Bumex and metolazone were placed on hold yesterday due to KERON. Creatinine is improving today at 1.8. LFTs improving. Urine output of 2200 cc. Net -9.6 L since admission. Continue to hold Aldactone.Resume Bumex 1 mg iv today, then transition to po over next 24 hrs. recheck CMP with am labs PDMP PDMP Reviewed: Not Reviewed Attestations 2 Medical Necessity Statement*: ongoing iv diuresis, KERON, close monitoring of kidney function Coding Level of Care Code Acute Code for Chg Fwd Diagnoses Acute exacerbation of CHF (congestive heart failure) I50.23 Heart failure type: systolic Paroxysmal atrial fibrillation I48.0 KERON (acute kidney injury) N17.9 Edema of both lower legs R60.0 Non-ischemic cardiomyopathy I42.8 Benign essential HTN I10 Mixed hyperlipidemia E78.2 Hyperlipidemia type: mixed hyperlipidemia Chronic renal disease N18.9 Transaminitis R74.01
[2025-01-09] MEDS: phenyleph-mineral oil-petrolat Oint 28 gm 1 APPLIC TOPICAL (17:49)
[2025-01-09] MEDS: morphine 4 mg/mL SDV 1 mL 2 MG IVP ×2 (17:54→22:27)
[2025-01-10] VITALS: BP 101/71; PULSE 66; RESP 18; O2SAT 97
[2025-01-10 03:46] VITALS: BP 94/64; PULSE 84; RESP 19; TEMP 37.1; O2SAT 98
[2025-01-10 05:03] LABS: Hematocrit 42.7 % (37-53); Hemoglobin 13.10 g/dL (11.27-16.99); Mean Corpuscular HGB Conc 30.7 g/dL (30-55); Mean Corpuscular Hemoglobin 27.6 pg (27-33); Mean Corpuscular Volume 90.1 fl (82-101); Nucleated Red Blood Cells % 0 %; Platelet Count 218 10^3/cmm (157-399); Red Blood Count 4.74 10^6/uL (3.85-5.65); White Blood Count 5.77 10^3/uL (3.29-11.43)
[2025-01-10] MEDS: DAPAGLIFLOZIN 5 MG TABLET PO (05:17)
[2025-01-10 05:18] VITALS: PULSE 74
[2025-01-10 05:35] LABS: Albumin Level 3.2 g/dL (3.5-5.2); Alkaline Phosphatase 180 U/L (40-130); Blood Urea Nitrogen 39 mg/dL (8-23); Calcium 8.9 mg/dL (8.5-10.5); Carbon Dioxide 29 mmol/L (22-29); Chloride 92 mmol/L (98-107); Creatinine Clr Calc Pharmacy 63.8764; Globulin 2.6 g/dL (1.3-4.6); Glucose 99 mg/dL (65-115); Osmolality Calculated 287 mOsm/kg (285-295); Sodium 134 mmol/L (136-145); Total Protein 5.8 g/dL (6.6-8.7)
[2025-01-10 05:37] LABS: Alanine Aminotransferase 159 U/L (0-41); Anion Gap 16.5 (5-19); Aspartate Amino Transferase 35 U/L (0-40); Potassium 3.5 mmol/L (3.5-5.1)
[2025-01-10 06:00] VITALS: PULSE 75
[2025-01-10 07:44] VITALS: BP 115/76; PULSE 79; RESP 15; TEMP 36.8; O2SAT 97
--- NOTE | 2025-01-10 08:47 | P.PN_ITS ---
Subjective 2 Subjective: No events overnight, his weight is down 27# from admission, net negative 11L. Creatinine improved to 1.4. CAR HEAD LINER INSTALLER-D planned for 01/26/25. Vitals/I&O/Wt Last Vital Signs Temp 98.2 F 01/10/25 07:44 Pulse 79 01/10/25 07:44 Resp 15 01/10/25 07:44 BP 115/76 01/10/25 07:44 Pulse Ox 97 01/10/25 07:44 O2 Del Method CPAP 01/10/25 03:46 FiO2 21 01/09/25 21:00 01/09/25 01/10/25 01/10/25 22:59 06:59 14:59 Intake Total 360 / 1320 Output Total 1999 150 / 3100 Balance -1999 / 0 210 / -1780 Weight last 48 hrs Weight 211 lb 13.828 oz Weight 213 lb 10.047 oz Weight 213 lb 10.047 oz Physical Exam 2 Const: COMMON NORMALS: no acute distress and patient oriented x3 GENERAL APPEARANCE: cooperative and comfortable ORIENTATION/CONSCIOUSNESS: Yes awake, Yes oriented to person, Yes oriented to place and Yes oriented to time Chest: COMMONS NORMALS: normal inspection of the chest and normal palpation of entire chest wall CHEST: Yes Symmetrical chest wall rise Resp: COMMON NORMALS: normal respiratory effort, No retractions, No use of accessory muscles and clear to auscultation bilaterally EFFORT & INSPECTION: Yes symmetric chest movement AUSCULTATION: clear to auscultation bilaterally Cardio: COMMON NORMALS: regular rate, regular rhythm, S1 normal heart sound present, S2 normal heart sound present, No gallops present (Cardio), No clicks present (Cardio), No murmurs present (Cardio) and No rub (Cardio) RATE: r egular rate RHYTHM: regular rhythm HEART SOUNDS: S1 normal heart sound present and S2 normal heart sound present PERIPHERAL PULSES: radial pulses present Extremity: GENERAL: Yes edema (2+ pitting edema bilat LE below knee) Neuro: COMMON NORMALS: patient oriented x3 and moves all extremities S ENSORIUM/ORIENTATION: Yes oriented to person, Yes oriented to place and Yes oriented to time Data 01/10/25 04:12 01/10/25 04:12 A&P Assessment and plan 1. Chronic renal disease: 2. Paroxysmal atrial fibrillation: 3. Systolic CHF with reduced left ventricular function, NYHA class 2: 4. Benign essential HTN: 5. CAD (coronary artery disease): Plan: Volume status much improved, no significant shortness of breath at rest or with lying down. Minimal shortness of breath with exertion around the room. LVEF 15 to 20% by limited echocardiogram yesterday. This is similar to previous. Will plan to discharge today, continuing Eliquis 5 mg twice a day, Bumex 1 mg twice a day, amiodarone 200 mg daily, digoxin 125 mcg daily, metoprolol tartrate 25 mg twice a day. Follow-up with cardiology clinic after CAR HEAD LINER INSTALLER-D is placed on 01/26/2025. PDMP PDMP Reviewed: Not Reviewed Attestations 2 Medical Necessity Statement*: dc today Coding Level of Care Code Acute Code for Chg Fwd Diagnoses Chronic renal disease N18.9 Paroxysmal atrial fibrillation I48.0 Systolic CHF with reduced left ventricular function, NYHA class 2 I50.20 Benign essential HTN I10 CAD (coronary artery disease) I25.10
--- NOTE | 2025-01-10 12:59 | PM.DCS ---
Discharge Providers Date of Admission: 01/06/25 00:42 Date of Discharge: January 10, 2025 Attending Provider at Admission: Charissa Ash MD Attending Provider at Discharge: Montserrat Tello MD Primary Care Provider: Francis Elmore Diagnoses at Discharge Discharge Diagnosis 1. Chronic renal disease: 2. Paroxysmal atrial fibrillation: 3. Systolic CHF with reduced left ventricular function, NYHA class 2: 4. Benign essential HTN: 5. CAD (coronary artery disease): Reason for Visit Reason for Visit: Chest Pain Hospital Course Hospital Course 64 year old male with medical history significant for systolic dysfunction cardiomyopathy with an ejection fraction of 20% presented to the emergency room because he had gained 20 pounds. Patient was started on IV diuresis with Bumex with addition of metolazone. He became net negative by 9 L during the course of his admission. He was seen by cardiology service. Hospital course was notable for development of KERON with diuresis. Creatinine peaked at 2.1. Thereafter trending down to 1.4 at the time of discharge.He has been discharged today with recommendation to continue Bumex 1 mg p.o. twice daily. To check his weight at home. Should he gain more than 5 pounds in 3 days recommended to take an extra dose of Bumex 1 mg. Follow-up with cardiology in 7 to 10 days. Physical Exam Narrative: General: No acute distress, AO x3 HEENT: PERRLA, pupils bilaterally equal and reactive, pallors not present Chest: Normal vesicular breath sounds, no added sounds, equal good air entry bilaterally CVS: S1-S2 regular, no murmurs, no tachycardia, no gallops, no rubs Abdomen: Soft, nontender, no organomegaly, bowel sounds present Neuro: No focal deficits, no facial deformity, AO x3, power 5/5 in all limbs Extremities: improving LE edema Discharge Data Studies Completed and Pending Completed Studies During Hospitalization Category Date Time Status CT abdomen pelvis wo con [id number] Urgent Cat Scan 01/06/25 07:49 Completed XR chest 1V portable [id number] Stat Exams 01/05/25 20:46 Completed US echo limited [CV. echo limited [id number]] Routine Ultrasound 01/09/25 10:30 Completed US liver [id number] Stat Ultrasound 01/06/25 07:49 Completed Radiology Impressions Chest X-Ray 01/05/25 20:46 IMPRESSION: Mild opacity on the left. Abdomen/Pelvis CT 10/31/25 07:49 IMPRESSION: 1. Diffuse soft tissue anasarca. Subcutaneous edema but there is also edema within the mesentery and retroperitoneum. 2. Diffuse inflammatory changes surrounding the gallbladder. Gallstone was identified on a recent ultrasound. There is no common bile duct dilatation. With this amount of inflammation acute cholecystitis should be considered. These inflammatory changes may be related to hepatocellular disease and patient's fluid overload. 3. Complex lobulated mass associated with the posterior RIGHT kidney measures 2.5 x 1.5 cm. Mass not identified on the recent ultrasound. Recommend renal mass CT or MRI protocol when patient's clinical presentation improves. Neoplasm needs to be excluded. 4. Mild hepatomegaly and hepatic steatosis. 5. Small bilateral pleural effusions. 6. Small amount of ascites. 7. No renal obstruction. Liver Ultrasound 01/06/25 07:49 IMPRESSION: 1. Contracted gallbladder with a single 2.2 cm stone identified. There may also be a small amount of sludge present. 2. Normal common bile duct. 3. Mild hepatomegaly with coarse echotexture from hepatic steatosis or other causes of hepatocellular disease. 4. Tiny amount of perihepatic ascites and a small RIGHT pleural effusion. Laboratory Results WBC 5.77 10^3/uL (3.29-11.43) 01/10/25 04:12 RBC 4.74 10^6/uL (3.85-5.65) 01/10/25 04:12 Hgb 13.10 g/dL (11.27-16.99) 01/10/25 04:12 Hct 42.7 % (37-53) 01/10/25 04:12 MCV 90.1 fl (82-101) 01/10/25 04:12 MCH 27.6 pg (27-33) 01/10/25 04:12 MCHC 30.7 g/dL (30-55) 01/10/25 04:12 RDW 16.9 % (12.1-15.1) H 01/10/25 04:12 Plt Count 218 10^3/cmm (157-399) 01/10/25 04:12 MPV 10.4 fL (7.4-10.4) 01/10/25 04:12 Neut % (Auto) 75.4 % 01/10/25 04:12 Lymph % (Auto) 13.3 % 01/10/25 04:12 Mitchell % (Auto) 9.2 % 01/10/25 04:12 Eos % (Auto) 1.4 % 01/10/25 04:12 Baso % (Auto) 0.0 % 01/10/25 04:12 Neut # (Auto) 4.35 10^3/uL (1.8-7.7) 01/10/25 04:12 Lymph # (Auto) 0.8 10^3/uL (0.8-4.8) 01/10/25 04:12 Mitchell # (Auto) 0.5 10^3/uL (0.2-0.9) 01/10/25 04:12 Eos # (Auto) 0.1 10^3/uL (0.0-0.8) 01/10/25 04:12 Baso # (Auto) 0.0 10^3/uL (0.0-0.1) 01/10/25 04:12 Nucleated RBC % (auto) 0 % 01/10/25 04:12 Nucleated RBCs # 0.0 /100WBC 01/10/25 04:12 Sodium 134 mmol/L (136-145) L 01/10/25 04:12 Potassium 3.5 mmol/L (3.5-5.1) 01/10/25 04:12 Chloride 92 mmol/L (98-107) L 01/10/25 04:12 Carbon Dioxide 29 mmol/L (22-29) 01/10/25 04:12 Anion Gap 16.5 (5-19) 01/10/25 04:12 BUN 39 mg/dL (8-23) H 01/10/25 04:12 Creatinine 1.4 mg/dL (0.7-1.2) H 01/10/25 04:12 GFR Calculation 51.2 mL/min (90-130) L 01/10/25 04:12 Glucose 99 mg/dL (65-115) 01/10/25 04:12 Calculated Osmolality 287 mOsm/kg (285-295) 01/10/25 04:12 Calcium 8.9 mg/dL (8.5-10.5) 01/10/25 04:12 Phosphorus 5.0 mg/dL (2.5-4.5) H 01/07/25 02:52 Magnesium 2.4 mg/dL (1.7-2.3) H 01/09/25 10:07 Total Bilirubin 1.1 mg/dL (0.15-1.2) 01/10/25 04:12 AST 35 U/L (0-40) 01/10/25 04:12 ALT 159 U/L (0-41) H 01/10/25 04:12 Alkaline Phosphatase 180 U/L (40-130) H 01/10/25 04:12 Troponin T Baseline 19 ng/L (0-15) H 01/06/25 00:49 Troponin T 120 Minute 19.06 ng/L (0-15) H 01/06/25 03:47 Delta Troponin T 0.06 ABS# (0-10) 01/06/25 03:47 Troponin T Hi Sens 6Hr 17.99 ng/L (0-15) H 01/06/25 07:35 Troponin T Hi Sens 6Hr Delta -1.01 ng/L (0-12) L 01/06/25 07:35 Total Protein 5.8 g/dL (6.6-8.7) L 01/10/25 04:12 Albumin 3.2 g/dL (3.5-5.2) L 01/10/25 04:12 Globulin 2.6 g/dL (1.3-4.6) 01/10/25 04:12 Digoxin 0.9 ng/mL (0.6-1.2) 01/06/25 03:47 Hepatitis A IgM Ab Non-reactive (Nonreactive) 01/06/25 00:49 Hep Bs Antigen Non-reactive (Nonreactive) 01/06/25 00:49 Hep B Core IgM Ab Non-reactive (Nonreactive) 01/06/25 00:49 Hepatitis C Antibody Non-reactive (Nonreactive) 01/06/25 00:49 Vitals Last Vital Signs Temp 98.2 F 01/10/25 07:44 Pulse 79 01/10/25 07:44 Resp 15 01/10/25 07:44 BP 115/76 01/10/25 07:44 Pulse Ox 97 01/10/25 07:44 O2 Del Method CPAP 01/10/25 03:46 FiO2 21 01/09/25 21:00 Discharge Plan Discharge Patient Disposition: Home Condition: Stable Prescriptions: Continued duloxetine 60 mg capsule,delayed release(DR/EC) 60 mg PO DAILY potassium chloride [Klor-Con 10] 10 mEq tablet extended release 10 meq PO DAILY Qty: 90 1RF metoprolol tartrate 25 mg tablet 25 mg PO BID@0900,2100 Qty: 180 3RF Jardiance 10 mg tablet 10 mg PO DAILY Qty: 90 0RF digoxin 125 mcg (0.125 mg) tablet 125 mcg PO DAILY Qty: 90 3RF amiodarone [Pacerone] 200 mg tablet 200 mg PO DAILY Qty: 90 0RF sacubitril-valsartan [Entresto] 24-26 mg tablet 0.5 tab PO BID Qty: 60 3RF cetirizine [Zyrtec] 10 mg Tablet 10 mg PO QPM clopidogrel 75 mg Tablet 75 mg PO DAILY 90 Days Qty: 90 3RF Repatha SureClick 140 mg/mL pen injector 140 mg SUBCUT Q14D Changed Eliquis 5 mg tablet 5 mg PO BID Qty: 180 2RF Dose Instruction: Take 1 tablet by mouth twice daily Rx Instructions: Take 1 tablet by mouth twice daily bumetanide 1 mg tablet 1 mg PO BID Qty: 90 2RF Dose Instruction: TAKE 2 TABLETS BY MOUTH ONCE DAILY IN THE MORNING THEN 1 ONCE DAILY AT 2PM Rx Instructions: TAKE 2 TABLETS BY MOUTH ONCE DAILY IN THE MORNING THEN 1 ONCE DAILY AT 2PM Discharge Order = DC NOW: Discharge Order (Routine); Ordered 01/10/25 Ordered By: Montserrat Tello Referrals: Fidelia Condon NP [Nurse Practitioner, Cardiology] - 02/07/25 8:30 am Francis Elmore [Primary Care Provider, Family Practice] - 01/11/25 3:20 pm Patient Instructions: A-fib (Atrial Fibrillation) (DC), Acute Kidney Injury (DC), CHF Stoplight, Opioid Safety, Patient Portal & Jorge L Instructions Activity Restrictions/Additional Instructions: Take Bumex 1mg po BID. If you gain more than 5 pounds in 3 days, take extra 1mg po Bumex and talk to our PCP or needle punch operator Discharge Attestations Time Spent in Discharge Care*: greater than 30 min Status at Discharge: Cognitive status at discharge: cognitively intact, Behavioral status at discharge: cooperative, Quality Metrics Clinical Quality Measures [ No reported AMI, CVA or VTE this stay] Coding Level of Care Code Acute Code for Chg Fwd Diagnoses Chronic renal disease N18.9 Paroxysmal atrial fibrillation I48.0 Systolic CHF with reduced left ventricular function, NYHA class 2 I50.20 Benign essential HTN I10 CAD (coronary artery disease) I25.10
[2025-01-10 14:10] VITALS: BP 115/76; PULSE 79; RESP 15; TEMP 36.8; O2SAT 96
== END 2025-01-10 13:30 | disposition home or self-care (01) | DRG 291 ==
LOC: ER 01-06 00:19 → CSU 01-06 00:43
PROVIDERS: Nurse Practitioner Family; Student in an Organized Health Care Education/Training Program; Admitting Provider Internal Medicine; Emergency Provider Student in an Organized Health Care Education/Training Program; PCP Family Medicine; Visit Provider Student in an Organized Health Care Education/Training Program
DX: I13.0 Hypertensive heart and chronic kidney disease with heart failure and stage 1 through stage 4 chronic kidney disease, or unspecified chronic kidney disease (principal); I50.23 Acute on chronic systolic (congestive) heart failure; N17.9 Acute kidney failure, unspecified; B02.29 Other postherpetic nervous system involvement; N18.9 Chronic kidney disease, unspecified; I48.0 Paroxysmal atrial fibrillation; I25.10 Atherosclerotic heart disease of native coronary artery without angina pectoris; I42.8 Other cardiomyopathies; I27.20 Pulmonary hypertension, unspecified; G47.33 Obstructive sleep apnea (adult) (pediatric); E78.2 Mixed hyperlipidemia; Z99.89 Dependence on other enabling machines and devices; Z79.02 Long term (current) use of antithrombotics/antiplatelets; Z79.899 Other long term (current) drug therapy; Z79.01 Long term (current) use of anticoagulants; Z95.5 Presence of coronary angioplasty implant and graft; Z87.891 Personal history of nicotine dependence
CPT/HCPCS: 36415; 71045; 74176; 76705; 80053; 80074; 80162; 83735; 84100; 84484; 85025; 93005; 93308; 94660; 96361; 96372; 96374; 96375; 99285; J1644; J2270; J2919; J3490; J7030; J9999

== ENCOUNTER → 2025-02-07 09:48 | Outpatient (BNVA) | payer BC, SELFPAY | PROVIDERS: PCP Family Medicine; Visit Provider Nurse Practitioner Family | DX: I50.20 Unspecified systolic (congestive) heart failure (principal) | CPT/HCPCS: 36415; 80048 ==

== ENCOUNTER 2025-02-13 23:06 | Emergency (ER) | payer BC, SELFPAY ==
--- OUTSIDE RECORDS SUMMARY | 2025-02-13 23:11 | XMS_ITS | Encounter Summary ---
Author Organization [facility] Address [address] [place] [address] Care Team Providers Care Vp Mobile Products Name Role Phone Sumi Oliver MD Primary Care Provider Encounter Details Date Type Department Care Team (Latest Contact Info) Description 06/02/[address] 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
--- OUTSIDE RECORDS SUMMARY | 2025-02-13 23:11 | XMS_ITS | Encounter Summary ---
Author Organization [facility] Address [address] [facility] [place] [address] Care Team Providers Care Sales Promotion Representative Name Role Phone Sumi Oliver MD Primary Care Provider Encounter Details Date Type Department Care Team (Latest Contact Info) Description 06/08/1998 Outpatient Historical [facility] Family Medicine- [address] [place] [phone] Mayra Cherry NO ADDRESS ON FILE Pneumonia, organism unspecified(486) (Primary Dx) Social History Tobacco Use Types Packs/Day Years Used Date Smoking Tobacco: Never Assessed Sex and Gender Information Value Date Recorded Sex Assigned at Not on file 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
--- OUTSIDE RECORDS SUMMARY | 2025-02-13 23:11 | XMS_ITS | Clinical Summary ---
Author Organization [facility] [place] Address 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 Gender Identity Not on file Sexual Orientation Not on file Occupation Industry Job Start Date Job End Date Not on file Not on file Not on file Not on file Last Filed Vital Signs Vital Sign Reading Time Taken Comments Blood Pressure 158/92 05/03/2020 1:24 PM PIECE WORK INSPECTOR Pulse 96 05/03/2020 1:24 PM PIECE WORK INSPECTOR Temperature 36.7 C (98 F) 05/03/2020 1:24 PM PIECE WORK INSPECTOR Respiratory Rate 20 05/03/2020 1:24 PM PIECE WORK INSPECTOR Oxygen Saturation 98% 05/03/2020 1:24 PM PIECE WORK INSPECTOR Inhaled Oxygen Concentration - - Weight 116.5 kg (256 lb 12.8 oz) 05/03/2020 1:24 PM PIECE WORK INSPECTOR Height 180.3 cm (5' 11 ) 05/03/2020 1:24 PM PIECE WORK INSPECTOR Body Mass Index 35.82 05/03/2020 1:24 PM PIECE WORK INSPECTOR Plan of Treatment Health Maintenance Due Date [...] 75+ series) 02/15/2036 Insurance BC Care Teams Jv Baseball Coach Relationship Specialty Start Date End Date Sumi Oliver MD [address] [phone] PCP - General Family Practice 04/09/20
--- OUTSIDE RECORDS SUMMARY | 2025-02-13 23:12 | XMS_ITS | Encounter Summary ---
Author Organization [facility] Address [address] [place] [address] Care Team Providers Care Industrial Commercial Groundskeeper Name Role Phone Francis Elmore MD Primary Care Provider [phone] Encounter Details Date Type Department Care Team (Late st Contact Info) Description 01/19/2025 Telephone [facility] [address] [facility] [address] [place] [phone] Juli Pinto MD [address] [facility] [address] [place] [phone] Social History Tobacco Use Types Packs/Day Years Used Date Smoking Tobacco: Never Smokeless Tobacco: Current Comments:Quit smoking: one c an q 1.5 days x 33 yrs Alcohol Use Standard Drinks/Week Comments Yes 1.7 (1 standard drink = 0.6 oz p ure alcohol) Sex and Gender Information Value Date Recorded Sex Assigned at Not on file Legal Sex Male 3:09 PM CATERING BARISTA Gender Identity Not on file Sexual Orientation Not on file documented as of this encounter Miscellaneous Notes * Telephone Encounter - Angelia Mosqueda - 01/19/2025 12:25 PM CAT[employer]ING [employer] calling and needing the Auth Dept, transferred caller to them [employer]ING [employer] documented in this encounter Plan of Treatment Upcoming Encounters Date Type Department Care Team (Late st Contact Info) Description 02/16/2025 1:00 PM CATERING [employer]ISTA Nurse Only [facility] [address] [place] [phone] Juli Pinto MD [address] [place] [phone] 06/09/2025 2:00 PM CDT Office Visit [facility] [address] [phone] Ghislaine Aguilar FNP [address] [phone] 06/26/2025 2:20 PM CDT Office Visit [facility] [address] [place] [phone] Juli Pinto MD [address] [place] [phone] Jolene Carrasco, SALES DEVELOPMENT CONSULTANT-SENIOR NET DEVELOPER [address] [place] [phone] documented as of this encounter Goals Goal Patient Goal Type Associated Problems Recent Progress Patient-Stated? Author Heart Failure Goal Care Plan Heart Failure Problem No Francis Elmore MD documented as of this encounter Visit Diagnoses Not on filedocumented in this encounter Additional Health Concerns Active Problems Noted Date Diagnosed Date Heart Failure Problem 12/09/2024 documented as of this encounter Care Teams Industrial Commercial Groundskeeper Relationship Specialty Start Date End Date Francis Elmore MD [address] [phone] PCP - General Family Practice 1/27/22 documented as of this encounter
--- OUTSIDE RECORDS SUMMARY | 2025-02-13 23:12 | XMS_ITS | Encounter Summary ---
Author Organization [facility] Address [address] [facility] [place] [address] Care Team Providers Care Electrical Electronics Technician Name Role Phone Sumi Oliver MD Primary Care Provider [phone] Encounter Details Date Type Department Care Team (Latest Contact Info) Description 06/22/2001 Outpatient Historical [facility] Family Medicine- [address] [place], [place] [phone] Uri [place], NO ADDRESS ON FILE HYPERTENSION NOS (Primary Dx); ALLERGY, UNSPECIFIED Social History Tobacco Use Types Packs/Day Years Used Date Smoking Tobacco: Never Assessed Sex and Gender Information Value Date Recorded Sex Assigned at Not on file Legal Sex Male 5:47 AM PROCUREMENT SPECIALIST Gender Identity Not on file Sexual Orientation Not on file documented as of this encounter Plan of Treatment Not on file documented as of this encounter Visit Diagnoses Diagnosis Unspecified essential hypertension- Primary Allergy, unspecified not elsewhere classified documented in this encounter Care Teams Electrical Electronics Technician Relationship Specialty Start Date End Date Sumi Oliver MD [address] [phone] PCP - General Family Practice 04/09/20 documented as of this encounter
--- OUTSIDE RECORDS SUMMARY | 2025-02-13 23:12 | XMS_ITS | Encounter Summary ---
Author Organization [facility] Address [address] [facility] [place] [address] Care Team Providers Care Boiling Off Winder Name Role Phone Sumi Oliver MD Primary Care Provider Encounter Details Date Type Department Care Team (Latest Contact Info) Description 06/05/2000 Outpatient Historical [facility] Family Medicine [address] [phone] Uri Burleson DO NO ADDRESS ON FILE Dizziness and giddiness (Primary Dx) Social History Tobacco Use Types Packs/Day Years Used Date Smoking Tobacco: Never Assessed Sex and Gender Information Value Date Recorded Sex Assigned at Not on file 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
--- OUTSIDE RECORDS SUMMARY | 2025-02-13 23:12 | XMS_ITS | Clinical Summary ---
Author Organization [facility] Address [address] [facility] Attn: Epic Prelude ADT AMBROCIO HUGGINS [address] Care Team Providers Care Design Sales Consultant Name Role Phone Francis Elmore MD Primary Care Provider [phone] Allergies Active Allergy Reactions Criticality Noted Date [...] compressor. 1 Each 0 05/30/19 18 Active Eliquis 5 mg tablet Take 5 mg by mouth 2 times daily. 01/05/20 23 Active digoxin (LANOXIN) 125 mcg (0.125 mg) tablet Take 125 mcg by mouth daily at bedtime. 01/08/20 23 Active amiodarone (CORDARONE) 200 mg tablet TAKE 1 TABLET BY MOUTH TWICE DAILY FOR 7 DAYS. THEN TAKE 1 TABLET BY MOUTH ONCE A DAY. 07/27/19 25 Active bumetanide (BUMEX) 1 mg tablet Take 3 mg by mouth daily. 2 AM and 1 PM 08/03/19 25 Active metoprolol tartrate (LOPRESSOR) 25 mg tablet TAKE 1 TABLET BY MOUTH TWICE DAILY AT 0900 AND 2100 FOR 30 DAYS 07/27/19 Active potassium CHLORIDE (KLOR-CON) 10 mEq Extended Release tablet Take 1 Tablet by mouth daily. 07/27/19 25 Active clopidogreL (PLAVIX) 75 mg Tablet Take 75 mg by mouth daily. 08/20/19 25 Active cetirizine (ZyrTEC) 10 mg tablet Take 10 mg by mouth daily at bedtime. Active evolocumab (Repatha SureClick) 140 mg/mL Pen InjectorIndicatio ns:Arteriosclerot ic cardiovascular disease,Allergy to statin medication Inject 1 mL (140 mg) by subcutaneous injection every 2 weeks. 6 mL 3 09/16/19 25 Active dilTIAZem (CARDIZEM CD, CARTIA XT) 120 mg Controlled Delivery 24 hour capsule 10/03/19 Active isosorbide mononitrate (IMDUR) 30 mg Extended Release 24 hour tablet Take 30 mg by mouth daily in the morning. 10/12/19 25 Active Entresto 24-26 mg Tablet Take 0.5 Tablets by mouth daily. 10/27/19 25 Active Jardiance 10 mg tablet Take 1 Tablet by mouth daily. 10/27/19 25 Active DULoxetine (CYMBALTA) 60 mg Capsule, Delayed Release(E.C.)Maria De Jesus cations:Shingles (herpes zoster) polyneuropathy Take 1 Capsule (60 mg) by mouth daily at bedtime. 100 Capsule 3 12/09/19 25 Active hydrocortisone acetate (ANUSOL-HC) 25 mg Suppository Insert 1 Suppository (25 mg) by rectum 2 times daily as needed for Itching or Discomfort. 24 Suppository 5 12/16/19 25 Active Proctocort 1 % Cream Apply to affected area 2 times daily. 56 Gram 1 12/22/19 25 Active losartan (COZAAR) 25 mg tablet Take 1 Tablet by mouth daily. 10/13/19 25 Active docusate sodium (COLACE) 100 mg capsuleIndication s:Slow transit constipation,Hemo rrhoids, unspecified hemorrhoid type Take 1 Capsule (100 mg) by mouth 2 times daily. 60 Capsule 3 01/12/20 25 Active Additional Information Patient taking differently:100 mg OralTWO TIMES DAILY PRN, Reported on 01/26/2025 Active Problems Problem Noted Date Diagnosed Date CHF (congestive heart failure) 01/09/2025 Paroxysmal A-fib 01/09/2025 Atherosclerosis of [place] co ronary artery of [place] heart with stable angina pectoris 12/08/2024 Chronic systolic congestive heart failure 2024 Statin myopathy 12/08/2024 H/O heart artery stent 10/05/2024 Paroxysmal atrial fibrillation 12/04/2021 Obstructive sleep apnea 09/19/2016 Shingles (herpes zoster) polyneuropathy 02/05/20 16 Tobacco use 06/21/2015 Allergic rhinitis 07/18/2011 Hyperlipidemia 12/24/2007 HTN (hypertension) 12/24/2007 Overview (07/04/2020): Updating IMO/ICD9 Code and Description Encounters Date Type Department Care Team Description 01/31/2025 External Device Data [facility] ABSTRACTION Provider, Abstract 01/31/2025 External Device Data [facility] ABSTRACTION Provider, Abstract 01/31/2025 External Device Data [facility] ABSTRACTION Provider, Abstract 01/26/2025 10:09 AM BODY WORK AUTO TRIMMER Anesthesia Event [facility] Cardiac Adjunct Faculty [address] [place] [phone] Pepe Palomares MD 01/26/2025 9:59 AM BODY WORK AUTO TRIMMER - 01/26/2025 11:47 AM BODY WORK AUTO TRIMMER Surgery [facility] Cardiac Adjunct Faculty [address] [place] [phone] Juli Pinto MD Biventricular ICD Insertion 01/26/2025 8:01 AM BODY WORK AUTO TRIMMER - 01/26/2025 1:45 PM BODY WORK AUTO TRIMMER Hospital Encounter [facility] Prep Recovery [address] [place] [phone] Juli Pinto MD Paroxysmal A-fib ([facility]) Discharge Disposition: Home or Self Care 01/26/2025 Telephone [facility] [address] [place] [phone] Prema Andrea RN Procedure 01/26/2025 Travel 01/23/2025 Orders Only [facility] [address] [place] [phone] Ghislaine Day NP Benign hypertension (Primary Dx) 01/19/2025 Telephone [facility] [address] [place] [phone] Juli Pinto MD 01/11/2025 3:20 PM BODY WORK AUTO TRIMMER Office Visit [address] [phone] Ghislaine Aguilar FNP Decompensated heart failure (CMS/HCC) (Primary Dx); Paroxysmal atrial fibrillation (CMS/HCC); Slow transit constipation; Hemorrhoids, unspecified hemorrhoid type 01/09/2025 Prep for Surgery [place] [address] [place] [phone] Juli Pinto MD Paroxysmal atrial fibrillation (CMS/HCC) (Primary Dx); Combined systolic and diastolic congestive heart failure, unspecified HF chronicity (CMS/HCC); Paroxysmal A-fib (CMS/HCC) 01/05/2025 Telephone [place] [address] [place] [phone] Prema Andrea RN Procedure; Returning missed call 01/05/2025 Telephone [place] [address] [place] [phone] Juli Pinto MD [facility] asking for the Nurse to call; Question 01/02/2025 Orders Only [facility] HIM [address] [place] [address] Provider, Abstract 12/28/2024 Telephone [place] [address] [place] [phone] Juli Pinto MD of Heart Approved 12/22/[address] [place] [address] Francis Elmore MD Medication Review 12/21/2024 Orders Only [address] [place] [address] Francis Elmore MD 12/14/[address] [place] [address] Francis Elmore MD Medication Review 12/13/2024 External Device Data [facility] ABSTRACTION Provider, Abstract 12/13/2024 External Device Data [facility] ABSTRACTION Provider, Abstract 12/13/2024 External Device Data [facility] ABSTRACTION Provider, Abstract 12/13/2024 External Device Data [facility] ABSTRACTION Provider, Abstract 12/09/2024 Orders Only [address] [place] [address] Francis Elmore MD 12/08/2024 4:00 PM CDT Office Visit [address] [place] [address] Francis Elmore MD Atherosclerosis of [place] coronary artery of [place] heart with stable angina pectoris (Primary Dx); Shingles (herpes zoster) polyneuropathy; Chronic systolic congestive heart failure (CMS/HCC); Obstructive sleep apnea; Statin myopathy; External hemorrhoids 12/06/2024 External Device Data [facility] ABSTRACTION Provider, Abstract from Last 3 Months Immunizations Immunization Administration Dates Next Due INFLUENZA VACCINE QUADRIVALENT 6 MOS UP PF IM INFLUENZA VACCINE TRIVALENT SPLIT VIRUS, (6 MOS UP), 0.5ML (PF), IM 12/08/2024 Social History Tobacco Use Types Packs/Day Years Used Date Smoking Tobacco: Every Day Cigarettes Smokeless Tobacco: Current Chew Tobacco Cessation:Ready to Q uit: No; Counseling Given: Yes Comments:Quit smoking: one can q 1.5 days x 33 yrs Alcohol Use Standard Drinks/Week Comments Yes 1.7 (1 standard drink = 0.6 oz p ure alcohol) Feeling Safe Answer Date Recorded Are you in a relationship wi th someone who hurts you emotionally and/or physically? No 01/26/2025 Food Insecurity Answer Date Recorded Patient needs follow up regardin 01/25/2025 Transportation Needs Answer Date Record ed Patient needs follow up regardin 01/25/2025 Utility Needs Answer Date Recorded Patient needs follow up regardin 01/25/2025 Sex and Gender Information Value Date Recorded Sex Assigned at Not on file Legal Sex Male 3:09 PM BODY WORK AUTO TRIMMER Gender Identity Not on file Sexual Orientation Not on file Last Filed Vital Signs Vital Sign Reading Time Taken Comments Blood Pressure 141/95 01/26/2025 12:32 PM BODY WORK AUTO TRIMMER Pulse 64 01/26/2025 12:45 PM BODY WORK AUTO TRIMMER Temperature 36.3 C (97.3 F) 01/26/2025 11:40 AM BODY WORK AUTO TRIMMER Respiratory Rate 16 01/26/2025 12:45 PM BODY WORK AUTO TRIMMER Oxygen Saturation 95% 01/26/2025 11:50 AM BODY WORK AUTO TRIMMER Inhaled Oxygen Concentration - - Weight 100.2 kg (221 lb) 01/26/2025 8:25 AM BODY WORK AUTO TRIMMER Height 180.3 cm (5' 11 ) 01/26/2025 8:25 AM BODY WORK AUTO TRIMMER Body Mass Index 30.82 01/26/2025 8:25 AM BODY WORK AUTO TRIMMER Plan of Treatment Upcoming Encounters Date Type Department Care Team (Late st Contact Info) Description 02/16/2025 1:00 PM BODY WORK AUTO TRIMMER Nurse Only [place] [address] [place] [phone] Juli Pinto MD [address] [place] [phone] 06/09/2025 2:00 PM CDT Office Visit [facility] [address] [phone] Ghislaine Aguilar FNP [address] [phone] 06/26/2025 2:20 PM CDT Office Visit [facility] [address] [place] [phone] Juli Pinto MD [address] [place] [address] Jolene Carrasco, EMERGENCY RESPONSE OFFICER-CARDER BLANKETS [address] [place] [address] Health Maintenance Due Date Last Done Comments [...] Heart Failure Problem No Francis Elmore MD Medical Devices Implanted Type Area Caster Investment Casting Device Identifier Shelf Expiration Date Model / Serial / Lot Flake Cutter Operator-D [place] Xt Hf Quad Mri [id number] Surescan Zpwe5no - [id number] Implanted:Qty: 1 on 01/26/2025 by Juli Pinto MD at [facility] Defibrillator Left: Chest Wall MEDTRONIC- CARD RHYTHM MGMT [id number] 06/03/2026 [id number] / [id number] 3S / Lead Capsurefix Novus Mri 52cm Endocardial Pacing 5076-52 - [id number] Implanted:Qty: 1 on 01/26/2025 by Juli Pinto MD at [facility] Lead Left: Chest Wall [employer]- CRM - BULK BUY [id number] 10/18/2026 5076-52 / [id number] 7V / Description:Amplitude 0.3/0. 5 Lead Sprint Quattro 62cm 6947m-62 - Csc - [id number] Implanted:Qty: 1 on 01/26/2025 by Juli Pinto MD at [facility] Lead Left: Chest Wall [employer]- CRM - BULK BUY 11/15/2026 [id number] / [id number] 4V / Lead Attain Lt Heart Str 88cm Performa [id number] - [id number] Implanted:Qty: 1 on 01/26/2025 by Juli Pinto MD at [facility] Lead Left: Chest Wall [employer]- CRM - BULK BUY [id number] 08/09/2026 [id number] / [id number] 2V / Procedures Procedure Name Priority Date/Time Associated Diagnosis Comments TELEMETRY REPORT 01/27/2025 10:1 6 AM BODY WORK AUTO TRIMMER XR CHEST PA AND LATERAL 2 VW Pending Discharge 01/26/2025 1:31 PM BODY WORK AUTO TRIMMER EKG 12-LEAD Pending Discharge 01/26/2025 12:26 PM BODY WORK AUTO TRIMMER EKG 12-LEAD Routine 01/26/2025 12:26 PM BODY WORK AUTO TRIMMER BIVENTRICULAR ICD INSERTION W ANES Routine 01/26/2025 11:28 AM BODY WORK AUTO TRIMMER CHF (congestive heart failure) (CMS/HCC) Paroxysmal A-fib (CMS/HCC) BASIC METABOLIC PANEL Routine 01/26/2025 8:58 AM BODY WORK AUTO TRIMMER CBC WITH DIFFERENTIAL Routine 01/26/2025 8:58 AM BODY WORK AUTO TRIMMER PROTIME-INR Routine 01/26/2025 8:50 AM BODY WORK AUTO TRIMMER EKG 12-LEAD Pending Discharge 01/26/2025 8:27 AM BODY WORK AUTO TRIMMER XR CHEST PA OR AP 1 VW Pending Discharge 01/26/2025 8:19 AM BODY WORK AUTO TRIMMER COMPREHENSIVE METABOLIC PANEL Routine 01/02/2025 1:28 PM CDT from Last 3 Months Results * TELEMETRY REPORT (01/27/2025 10:16 AM BODY WORK AUTO TRIMMER) us Provider Scanning ECG ORDERABLES Final Result * XR CHEST PA AND LATERAL 2 VW (01/26/2025 1:31 PM BODY WORK AUTO TRIMMER) Anatomical Region Laterality Modality Chest Computed Radiogr aphy 01/26/2025 1:31 PM BODY WORK AUTO TRIMMER Impressions 01/26/2025 1:40 PM BODY WORK AUTO TRIMMER IMPRESSION: Interval cardiac ICD placement as above. Narrative 01/26/2025 1:40 PM BODY WORK AUTO TRIMMER Exam: XR CHEST PA AND LATERAL 2 VW Date/Time of Exam: 01/26/2025 1:31 PM Reason For Exam: Post-Operative. Diagnosis: CHF (congestive heart failure) (CMS/HCC); Paroxysmal A-fib (CMS/HCC); Paroxysmal atrial fibrillation (CMS/HCC); Combined systolic and diastolic congestive heart failure, unspecified HF chronicity (CMS/HCC). Findings: Interval placement of a left-sided cardiac ICD with leads terminating in the right atrium, right ventricle, and coronary sinus. The cardiac silhouette is enlarged. Vascular congestion is present centrally. No pleural effusion or pneumothorax. Degenerative changes are present in the thoracic spine. Procedure Note Dominick Gonzalez MD - 01/26/2025 Exam: XR CHEST PA AND LATERAL 2 VW Date/Time of Exam: 01/26/2025 1:31 PM Reason For Exam: Post-Operative. Diagnosis: CHF (congestive heart failure) (CMS/HCC); Paroxysmal A-fib (CMS/HCC); Paroxysmal atrial fibrillation (CMS/HCC); Combined systolic and diastolic congestive heart failure, unspecified HF chronicity (CMS/HCC). Findings: Interval placement of a left-sided cardiac ICD with leads terminating in the right atrium, right ventricle, and coronary sinus. The cardiac silhouette is enlarged. Vascular congestion is present centrally. No pleural effusion or pneumothorax. Degenerative changes are present in the thoracic spine. IMPRESSION: Interval cardiac ICD placement as above. us Juli Pinto MD DIAGNOSTIC IMAGING ORDERABLES Final Result * EKG 12-LEAD (01/26/2025 12:26 PM BODY WORK AUTO TRIMMER) Only the most recent of3 resultswithin the time period is included. 01/26/2025 12:2 6 PM BODY WORK AUTO TRIMMER Narrative INTERFACE SYSTEM - 01/26/2025 7:01 PM BODY WORK AUTO TRIMMER [address] [address] Test Date: 2025-01-26 Pat Name: COLIN MOYA Department: 12 Room: [facility] 01 Gender: Male Synthetic Filament Extruder: [id number] : 1960 Requested By: Order Number: [id number] Reading MD: Zoraida Staples Measurements Intervals [place] Rate: 70 P: 0 KS: 0 QRS: -65 QRSD: 160 T: 89 QT: 502 QTc: 542 Interpretive Statements Ventricular-paced rhythm Abnormal ECG Electronically Signed On 01-26-2025 19:01:04 BODY WORK AUTO TRIMMER by Zoraida Staples Procedure Note Zoraida Staples MD - 01/26/[address] [address] Test Date: 2025-01-26 Pat Name: COLIN BOOTON Department: 12 Room: [facility] 01 Gender: Male Synthetic Filament Extruder: [id number] : 1960 Requested By: Order Number: [id number] Reading MD: Zoraida Staples Measurements Intervals [place] Rate: 70 P: 0 KS: 0 QRS: -65 QRSD: 160 T: 89 QT: 502 QTc: 542 Interpretive Statements Ventricular-paced rhythm Abnormal ECG Electronically Signed On 01-26-2025 19:01:04 BODY WORK AUTO TRIMMER by Zoraida Staples us Juli Pinto MD ECG ORDERABLES Final Result INTERFACE SYSTEM Refer to clinic/hospital department * BIVENTRICULAR ICD INSERTION W ANES (01/26/2025 11:28 AM BODY WORK AUTO TRIMMER) Narrative [facility] - 01/26/2025 11:37 AM BODY WORK AUTO TRIMMER Title procedure: CRTD implant POSTPROCEDURE DIAGNOSES: 1. BiV ICD impalnted MATERIALS USED: Medtronic system 1. A new RA 2. A new RV lead 2. A new LV lead is Medtronic 3. A new CRTD generator PROCEDURE PERFORMED: 1. Left upper extremity venogram to exclude venous occlusion. 2. RV lead placement under the fluoro guidance. 3. RA lead placement under the fluoro guidance. 4. LV lead placement under the fluoro guidance. 5. Generator placement with interrogation and programming. DESCRIPTION OF PROCEDURE: After informed consent was obtained, the patient was taken to the Cardiac Catheterization Lab in a fasting, nonsedated state. The patient was transferred from the holding area to the table and the patient s hemodynamics were stable during the procedure. The patient did not require any intervention during the procedure other than our routine care. The patient's left anterior chest and neck were prepped and draped in sterile fashion and local anesthesia was obtained with 1% lidocaine. Using a #10 blade, a skin incision was made 3 cm below the left clavicle and about 6 cm in the diagonal plane, using sharp and blunt dissection down to the prepectoralis muscle fascia. A pulse generator pocket was then created. 10 ml of the contrast agent was injected into the left arm IV site and under the venogram as well as fluoroscopic guidance, the thin-walled needle was punctured into the junction of axillary vein and subclavian, the J wire was then introduced into the right atrium. First right ventricular lead was inserted through the safe sheath into the right ventricular apex and active fixation was obtained into ventricular septum at the apex area. The acute parameters of the lead were obtained and satisfactory parameters were confirmed. Stylet was withdrawn and the lead was left with enough slack and 10 volts x 1 millisecond stimulation was obtained to ensure the patient was without diaphragmatic or intercostal muscle stimulation. The lead was secured to the underlying pectoralis muscle using #1 Ethibond suture with suture sleeve in two different locations. After securing the ventricular lead, using a similar fashion we did the RA lead with separate needle stick to the junction of subclavian and axillary vein under the venogram as well as fluoroscopic guidance. The RA lead was advanced to RA appendage area, and after active fixation, the interrogation showed RA all parameters WNL. After securing the RA lead, using a similar fashion we did the LV lead with separate needle stick to the junction of subclavian and axillary vein under the venogram as well as fluoroscopic guidance. The LV lead was advanced to the right atrial and into coronary sinus ostium. Coronary sinus veinous venogram done and small anterolateral branch identified. The LV lead then guided into this branch with fluoro. After satisfactory acute parameters were confirmed, the lead was secured to the underlying pectoralis muscle area using #1 Ethibond suture with suture sleeve in two independent knots. After the second check of both right RA and R ventricular and LV lead acute parameters, we found those acute parameters were in a satisfactory range. The lead was connected to the pulse generator by tightening up the set screws and tug test was noted to be negative. The pulse generator was put into the pocket after irrigation of the pocket with antibiotic solution. The pulse generator leads were then curled and placed in the generator pocket with the pulse generator being secured to underlying pectoralis muscle under the pocket. The pulse generator pocket was then closed with 2-0 V lock in a continuous running stitch fashion. Second layer of 2-0 V lock was applied to the subcutaneous tissue in a continuous running stitch fashion. The skin edge was approximated using rosa elena. Checking of the sponge and needle count times two was noted to be correct. Throughout the procedure, patient's hemodynamics and oxygenation stable. No complication noticed. Minimal bleeding. Final parameters as WNL and documented. TBL: 20 mL No complication noticed FINAL PROGRAMMING: VVI 50 bpm VT 171 bpm ATP, no shock Vfib 200 bpm shocks FINAL SUMMARY: CRTD implant Lead Implant 1 Lead is located in the right ventricle. Right Ventricle location: RV apex. Vascular access venogram performed. The LEAD SPRINT QUATTRO 62CM [id number]-62 - CSC RV lead was successfully implanted in the RV apex. There was no extracardiac stimulation on the lead. The sheaths were removed and then the leads were secured to the fascia. Lead Implant 2 Lead is located in the right atrium. Right atrium location: right atrial appendage. Vascular access venogram performed. The LEAD CAPSUREFIX NOVUS MRI 52CM ENDOCARDIAL PACING 5076-52 RA lead was successfully implanted in the right atrial appendage. There was no extracardiac stimulation on the lead. The sheaths were removed and then the leads were secured to the fascia. Lead Implant 3 Lead is located in the coronary sinus. Vascular access venogram performed. The LEAD ATTAIN LT HEART STR 88CM PERFORMA [id number]. There was no extracardiac stimulation on the lead. The sheaths were removed and then the leads were secured to the fascia. Generator Implant/Explant ICD implant: Area(s) prepped and draped: left anterior chest wall. Timeout protocol completed. The skin and subcutaneous tissue were locally anesthetized using lidocaine 1%. An incision was made along the left infraclavicular. A left pectoral subcutaneous pocket was made using electrocautery. All areas of bleeding were sought for and cauterized and a dry field was obtained. The device and leads were then placed into the pocket. The lead(s) and device were inspected under fluoroscopy to ensure proper positioning. The pocket was observed to be free of active bleeding. The pocket was copiously irrigated with antibiotic solution. The pocket was copiously irrigated with 0.9% normal saline solution. Skin margins were approximated using continuous. Needle, sponge and instrument counts were verified correctly. us Juli Pinto MD CUP EP ORDERABLES Final Resul t [id number] [address] [facility] [address] [place] [phone], * (ABNORMAL) CBC WITH DIFFERENTIAL (01/26/2025 8:58 AM BODY WORK AUTO TRIMMER) [facility] WBC 4.6(L) 4.8 - 10.8 K/uL 01/26/2025 9:14 AM BODY WORK AUTO TRIMMER [facility] RBC 4.53(L) 4.60 - 6.20 M/uL 01/26/2025 9:14 AM BODY WORK AUTO TRIMMER [facility] HEMOGLOBIN 12.7(L) 14.0 - 18.0 g/dL 01/26/2025 9:14 AM [facility] HEMATOCRIT 40.9(L) 41.0 - 53.0 % 01/26/2025 9:14 AM [facility] MCV 90.3 84.0 - 103.0 fL 01/26/2025 9:14 AM [facility] MCH 28.0 27.0 - 34.0 pg 01/26/2025 9:14 AM [facility] MCHC 31.1 30.0 - 35.0 g/dL 01/26/2025 9:14 AM [facility] PLATELETS 267 140 - 440 K/uL 01/26/2025 9:14 AM [facility] MPV 9.8 8.9 - 12.8 fL 01/26/2025 9:14 AM [facility] RDW 18.7(H) 11.0 - 14.5 % 01/26/2025 9:14 AM [facility] RDW-STDEV 57.5(H) 37.0 - 54.0 fL 01/26/2025 9:14 AM [facility] NEUTROPHILS 69 42 - 75 % 01/26/2025 9:14 AM [facility] LYMPHOCYTES 16(L) 24 - 44 % 01/26/2025 9:14 AM [facility] MONOCYTES 9 2 - 10 % 01/26/2025 9:14 AM [facility] EOSINOPHILS 3 0 - 7 % 01/26/2025 9:14 AM [facility] BASOPHILS 1 0 - 1 % 01/26/2025 9:14 AM [facility] IMMATURE GRANULOCYTES 3(H) 0 - 2 % 01/26/2025 9:14 AM [facility] NEUTROPHIL ABSOLUTE 3.12 2.00 - 8.00 K/uL 01/26/2025 9:14 AM [facility] LYMPHOCYTE ABSOLUTE 0.73(L) 1.20 - 4.00 K/uL 01/26/2025 9:14 AM [facility] MONOCYTE ABSOLUTE 0.40 0.10 - 0.60 K/uL 01/26/2025 9:14 AM [facility] EOSINOPHIL ABSOLUTE 0.12 0.00 - 0.70 K/uL 01/26/2025 9:14 AM [facility] BASOPHILS ABSOLUTE 0.06 0.00 - 0.20 K/uL 01/26/2025 9:14 AM [facility] IMMATURE GRANULOCYTES ABSOLUTE 0.12(H) 0.00 - 0.10 K/uL 01/26/2025 9:14 AM [facility] SMEAR REVIEWED: NA - Not Applicable 01/26/2025 9:14 AM [facility] Blood Venipuncture / Unknown 01/26/2025 8:58 AM BODY WORK AUTO TRIMMER 01/26/2025 9:07 AM BODY WORK AUTO TRIMMER us Juli Pinto MD HEMATOLOGY ORDERABLES Final R esult [facility] CLIA # [id number] [address] [place] [id number] * (ABNORMAL) BASIC METABOLIC PANEL (01/26/2025 8:58 AM BODY WORK AUTO TRIMMER) SODIUM 140 136 - 145 mmol/L 01/26/2025 9:41 AM [facility] [facility] POTASSIUM 3.5 3.5 - 5.1 mmol/L 01/26/2025 9:41 AM [facility] CHLORIDE 102 98 - 107 mmol/L 01/26/2025 9:41 AM [facility] CO2 25 22 - 29 mmol/L 01/26/2025 9:41 AM [facility] CALCIUM 8.3(L) 8.8 - 10.2 mg/dL 01/26/2025 9:41 AM [facility] BUN 31(H) 8 - 23 mg/dL 01/26/2025 9:41 AM [facility] CREATININE 1.62(H) 0.67 - 1.17 mg/dL 01/26/2025 9:41 AM [facility] GLUCOSE 117(H) 74 - 99 mg/dL 01/26/2025 9:41 AM BODY WORK AUTO TRIMMER [facility] GFR 47(L) >=60 mL/min/1. 73 sq meter 01/26/2025 9:41 AM BODY WORK AUTO TRIMMER [facility] Comment:eGFR calculated with 2020 CKD-EPI equation. Vegetarian diet, extremely high or low muscle mass, and may affect results. Cystatin C with Glomerular Filtration Rate is a suitable alternative for these patients. ANION GAP 13 9 - 20 mmol/L 01/26/2025 9:41 AM BODY WORK AUTO TRIMMER [facility] Blood Venipuncture / Unknown 01/26/2025 8:58 AM BODY WORK AUTO TRIMMER 01/26/2025 9:07 AM BODY WORK AUTO TRIMMER Juli Pinto MD CHEMISTRY ORDERABLES Final Re sult [facility] CLIA # [id number] [address] [place] [id number] * PROTIME-INR (01/26/2025 8:50 AM BODY WORK AUTO TRIMMER) PROTIME 14.7 12.7 - 14.9 Seconds 01/26/2025 9:20 AM BODY WORK AUTO TRIMMER [facility] INR 1.1 0.8 - 1.2 01/26/2025 9:20 AM [facility] Blood Venipuncture / Unknown 01/26/2025 8:50 AM BODY WORK AUTO TRIMMER 01/26/2025 8:53 AM BODY WORK AUTO TRIMMER Narrative [facility] - 01/26/2025 9:20 AM BODY WORK AUTO TRIMMER Expected Values for INR: DVT/PE Goal INR 2.5; range 2.0 - 3.0 Valve Replacement Tissue Goal INR 2.5; range 2.0 - 3.0 Valve Replacement Mechanical Goal INR 3.0; range 2.5 - 3.5 POST-OR Goal INR 2.5; range 2.0 - 3.0 or Goal INR 3.0; range 2.5 - 3.5 Atrial Fibrillation Goal INR 2.5; range 2.0 - 3.0 Ischemic Stroke Goal INR 2.5; range 2.0 - 3.0 us Juli Pinto MD HEMATOLOGY ORDERABLES Final R esult [facility] EVY # [id number] [address] 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 Exam: XR CHEST PA OR AP 1 VW Date/Time of Exam: 01/26/2025 8:19 AM Reason For Exam: Other - Please see comments. Diagnosis: CHF (congestive heart failure) (CMS/HCC); Paroxysmal A-fib (CMS/HCC); Paroxysmal atrial fibrillation (CMS/HCC); Combined systolic and diastolic congestive heart failure, unspecified HF chronicity (CMS/HCC). Comparison: None Findings: Mild cardiomegaly without perigastric congestion, infiltrates or pleural fluid and no pneumothorax. No acute osseous abnormality. IMPRESSION: 1. No infiltrates. Narrative Procedure Note Rod Spivey MD - 01/26/2025 IMPRESSION: Please see below. Exam: XR CHEST PA OR AP 1 VW Date/Time of Exam: 01/26/2025 8:19 AM Reason For Exam: Other - Please see comments. Diagnosis: CHF (congestive heart failure) (CMS/HCC); Paroxysmal A-fib (CMS/HCC); Paroxysmal atrial fibrillation (CMS/HCC); Combined systolic and diastolic congestive heart failure, unspecified HF chronicity (CMS/HCC). Comparison: None Findings: Mild cardiomegaly without perigastric congestion, infiltrates or pleural fluid and no pneumothorax. No acute osseous abnormality. IMPRESSION: 1. No infiltrates. us Juli Pinto MD DIAGNOSTIC IMAGING ORDERABLES Final Result * COMPREHENSIVE METABOLIC PANEL (01/02/2025 1:28 PM CDT) Blood us Abstract Provider CHEMISTRY ORDERABLES Final Res ult from Last 3 Months Additional Health Concerns Active Problems Noted Date Diagnosed Date Heart Failure Problem 12/09/2024 Insurance [facility] PREFERRED Advance Directives For more information, please contact: [phone] * Full Code (Latest Code Status on File) Date Activated Date Inactivated Comments 01/26/2025 12:05 PM 01/26/2025 3:45 PM * Full Code Date Activated Date Inactivated Comments 01/26/2025 8:06 AM 01/26/2025 12:05 PM Care Teams Design Sales Consultant Relationship Specialty Start Date End Date Francis Elmore MD [address] [phone] PCP - General Family Practice 04/04/21
--- OUTSIDE RECORDS SUMMARY | 2025-02-13 23:12 | XMS_ITS | Encounter Summary ---
Author Organization [facility] Address [address] [facility] [place] [address] Care Team Providers Care Baking Assistant Name Role Phone Sumi Oliver MD Primary Care Provider Encounter Details Date Type Department Care Team (Latest Contact Info) Description 04/24/2006 Outpatient Historical [facility] Family Medicine- [place] [address] [place] [phone] Jeanna Agee MD NO ADDRESS ON FILE Unspecified Essential Hypertension (Primary Dx); Mixed Hyperlipidemia Social History Tobacco Use Types Packs/Day Years Used Date Smoking Tobacco: Never Assessed Sex and Gender Information Value Date Recorded Sex Assigned at Not on file 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
--- OUTSIDE RECORDS SUMMARY | 2025-02-13 23:12 | XMS_ITS | Encounter Summary ---
Author Organization [facility] Address [address] [facility] [place] [address] Care Team Providers Care Doughnut Icer Name Role Phone Sumi Oliver MD Primary Care Provider Encounter Details Date Type Department Care Team (Latest Contact Info) Description 10/30/2006 Outpatient Historical [facility] Family Medicine- [place] [address] [place] [phone] Jeanna Agee MD NO ADDRESS ON FILE Sprain and Strain of Unspecified Site of Elbow and Forearm (Primary Dx) Social History Tobacco Use Types Packs/Day Years Used Date Smoking Tobacco: Never Assessed Sex and Gender Information Value Date Recorded Sex Assigned at Not on file 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
--- OUTSIDE RECORDS SUMMARY | 2025-02-13 23:12 | XMS_ITS | Encounter Summary ---
Author Organization [facility] Address [address] [facility] [place] [address] Care Team Providers Care Research Physician Name Role Phone Sumi Oliver MD Primary Care Provider Encounter Details Date Type Department Care Team (Latest Contact Info) Description 06/08/2001 Outpatient Historical [facility] Family Medicine- [place] [address] [place], [place] [phone] Uri Burleson DO NO ADDRESS ON FILE ALLERGY, UNSPECIFIED (Primary Dx); DYSPHAGIA Social History Tobacco Use Types Packs/Day Years Used Date Smoking Tobacco: Never Assessed Sex and Gender Information Value Date Recorded Sex Assigned at Not on file 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
--- OUTSIDE RECORDS SUMMARY | 2025-02-13 23:12 | XMS_ITS | Encounter Summary ---
Author Organization [facility] Address [address] [facility] [place] [address] Care Team Providers Care Thread Checker Name Role Phone Sumi Oliver MD Primary Care Provider Encounter Details Date Type Department Care Team (Latest Contact Info) Description 06/01/2006 Outpatient Historical [facility] Family Medicine- [place] [address] [place] [phone] Jeanna Agee MD NO ADDRESS ON FILE Unspecified Essential Hypertension (Primary Dx); Unspecified Sleep Apnea Social History Tobacco Use Types Packs/Day Years Used Date Smoking Tobacco: Never Assessed Sex and Gender Information Value Date Recorded Sex Assigned at Not on file 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
--- OUTSIDE RECORDS SUMMARY | 2025-02-13 23:12 | XMS_ITS | Encounter Summary ---
Author Organization [facility] Address [address] [place] [address] Care Team Providers Care Foil Operator Name Role Phone Sumi Oliver MD Primary Care Provider Encounter Details Date Type Department Care Team (Latest Contact Info) Description 05/08/2006 Outpatient Historical [facility] Family Medicine- [place] [place] [phone] Jeanna Agee MD NO ADDRESS ON FILE Unspecified Essential Hypertension (Primary Dx); Unspecified Sleep Apnea Social History Tobacco Use Types Packs/Day Years Used Date Smoking Tobacco: Never Assessed Sex and Gender Information Value Date Recorded Sex Assigned at Not on file 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
--- OUTSIDE RECORDS SUMMARY | 2025-02-13 23:12 | XMS_ITS | Encounter Summary ---
Author Organization [facility] Address [address] [place] [address] Care Team Providers Care Sprinkler Installer Name Role Phone Sumi Oliver MD Primary Care Provider Encounter Details Date Type Department Care Team (Latest Contact Info) Description 04/17/2006 Outpatient Historical [facility] Family Medicine- [place] [address] [place] [phone] Jeanna Agee MD NO ADDRESS ON FILE Other Alteration of Consciousness (Primary Dx); Elevated Blood Pressure Reading without Diagnosis of Hypertension Social History Tobacco Use Types Packs/Day Years Used Date Smoking Tobacco: Never Assessed Sex and Gender Information Value Date Recorded Sex Assigned at Not on file 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
--- NOTE | 2025-02-13 23:14 | XRR_ITS ---
PROCEDURE INFORMATION: Exam: XR Chest Exam date and time: 02/14/2025 1:03 AM Age: 65 years old Clinical indication: Chest pressure; Prior surgery; Surgery date: 6+ months; Surgery type: Pacemaker, coronary stents; C/O chest pain and dizziness for 3-4 days. TECHNIQUE: Imaging protocol: Radiologic exam of the chest. Views: 1 view. COMPARISON: CR XR chest 1V portable [id number] 01/05/2025 8:50 PM FINDINGS: Tubes, catheters and devices: AICD/pacemaker. Lungs: Unremarkable. No consolidation. Pleural spaces: Small left pleural effusion. Heart/Mediastinum: Cardiomegaly. Bones/joints: Unremarkable. XR/XR chest 1V portable [id number] IMPRESSION: Small left pleural effusion.
--- NOTE | 2025-02-13 23:14 | ECG_ITS ---
[facility] Test Date: 2025-02-13 Pat Name: Colin Moya Department: Room: Gender: Male Demand Planning Manager: : 1960 Requested By: Fidelia Reinoso Order Number: [id number] Moore MD: Avery Denney M.D. Measurements Intervals [place] Rate: 82 P: 0 FL: 0 QRS: -87 QRSD: 156 T: 89 QT: 283 QTc: 331 Interpretive Statements ELECTRONIC VENTRICULAR PACEMAKER VENTRICULAR-PACED RHYTHM ABNORMAL RHYTHM ECG Compared to ECG 01/05/2025 20:33:12 VENTRICULAR PACER SPIKE NOW PRESENT Electronically Signed On 02-15-2025 22:43:11 QUILL MACHINE TENDER by Avery Denney M.D. [email or web address]
[2025-02-13 23:22] VITALS: BP 117/80; PULSE 87; RESP 18; TEMP 36; O2SAT 97; BMI 30.2
--- NOTE | 2025-02-14 00:53 | W.ED.CHESTPA ---
HPI - Chest Pain General: Chief Complaint: Chest Pain Stated Complaint: Face Swelling BP High Chest Pains Time Seen by Provider: 02/14/25 00:59 History of Present Illness: 65-year-old man with a history of atrial fibrillation, pacemaker placement, chronic anticoagulation on Eliquis, obstructive sleep apnea, pulmonary hypertension, congestive heart failure, hypertension, hyperlipidemia and coronary artery disease who presents emergency room with chest discomfort. He was seen in cardiology clinic a few days ago and they are planning on cardioversion in [place] in 2 weeks. He says over the last couple days has been having worsening exertional dyspnea and chest discomfort. He said it finally got to the point where he could hardly get around. He also says he had some weight gain yesterday. Worsening swelling in his legs yesterday. His diuretics have been changed recently. In his recent admission he ended up with some acute renal insufficiency. This was secondary to diuresis. No altered mental status. No focal motor deficits. No fevers. No nausea or vomiting. Related Data Home Medications ?Medication ?Instructions ?Recorded ?Confirmed duloxetine 60 mg capsule,delayed 60 mg PO DAILY 12/25/21 02/07/25 release evolocumab 140 mg/mL subcutaneous 140 mg SUBCUT Q14D 10/05/24 02/07/25 pen injector (Repatha SureClick) cetirizine 10 mg tablet (Zyrtec) 10 mg PO QPM 01/06/25 02/07/25 Previous Rx's ?Medication ?Instructions ?Recorded digoxin 125 mcg (0.125 mg) tablet 125 mcg PO DAILY #90 tabs 07/11/24 clopidogrel 75 mg tablet 75 mg PO DAILY 90 days #90 tabs 08/19/24 metoprolol tartrate 25 mg tablet 25 mg PO BID@0900,2100 #180 tabs 08/25/24 potassium chloride 10 mEq 10 meq PO DAILY #90 tabs 08/25/24 tablet,extended release (Klor-Con) amiodarone 200 mg tablet (Pacerone) 200 mg PO DAILY #90 tabs 09/29/24 sacubitril 24 mg-valsartan 26 mg 0.5 tab PO BID #60 tabs 11/28/24 tablet (Entresto) apixaban 5 mg tablet (Eliquis) 5 mg PO BID #180 tabs 01/10/25 empagliflozin 10 mg tablet 10 mg PO DAILY #90 tabs 01/25/25 (Jardiance) bumetanide 1 mg tablet See Rx Instructions .Route 02/07/25 .COMPLEX #90 tabs Allergies Allergy/AdvReac Type Severity Reaction Status Date / Time simvastatin Allergy Severe N/V Verified 02/07/25 08:24 Review of Systems Narrative: Constitutional symptoms: Negative except as documented in HPI. Skin symptoms: Negative except as documented in HPI. Eye symptoms: Negative except as documented in HPI. ENMT symptoms: Negative except as documented in HPI. Respiratory symptoms: Negative except as documented in HPI. Cardiovascular symptoms: Negative except as documented in HPI. Gastrointestinal symptoms: Negative except as documented in HPI. Genitourinary symptoms: Negative except as documented in HPI. Musculoskeletal symptoms: Negative except as documented in HPI. Neurologic symptoms: Negative except as documented in HPI. Psychiatric symptoms: Negative except as documented in HPI. Endocrine symptoms: Negative except as documented in HPI. PFS ED PFSH: Medical History (Updated 02/14/25 @ 03:48 by Lian Sharp MD) Pulmonary hypertension Atrial fibrillation with rapid ventricular response Acute exacerbation of CHF (congestive heart failure) Obstructive sleep apnea SOBOE (shortness of breath on exertion) Postherpetic neuralgia Tobacco use Exercise intolerance Allergic rhinitis Shingles Hypertension Paroxysmal atrial fibrillation Labile blood pressure Dyspnea Hyperlipidemia GIA on CPAP Dizziness Chest discomfort Surgical History No history of previous surgery Family History Father CAD (coronary artery disease) Stroke, Onset Age: 35 Grandmother Cancer Mother Stroke Sister Stroke Denies family history of Diabetes Clotting disorder Dementia Chronic kidney disease (CKD) Suicide Anesthesia complication Bleeding disorder Lung disease Social History Smoking and tobacco/nicotine status: never used tobacco/nicotine Alcohol intake: current Alcohol intake frequency: few times a month Substance/Drug Use: never Physical Exam Narrative: EXAM NARRATIVE: General: Alert, no acute distress. Skin: Warm, dry. Head: Normocephalic, atraumatic. Neck: Supple, trachea midline. Eye: Extraocular movements are intact. Ears, nose, mouth and throat: mucosa moist. Cardiovascular: Regular, Normal peripheral perfusion. 2+ pitting edema Respiratory: Lungs are clear to auscultation, respirations are non-labored, breath sounds are equal, Symmetrical chest wall expansion. Gastrointestinal: Soft, Nontender, Non distended Musculoskeletal: Normal ROM, no deformity. Neurological: Alert and oriented, No focal neurological deficit observed. Psychiatric: Cooperative, appropriate mood & affect. 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 checked and when he did with altered mental status. I reviewed the patient's medical record. 65-year-old man with a history of atrial fibrillation, pacemaker placement, chronic anticoagulation on Eliquis, obstructive sleep apnea, pulmonary hypertension, congestive heart failure, hypertension, hyperlipidemia and coronary artery disease. Reviewed records from cardiology clinic from 7 days ago. They addressed his persistent edema. I reviewed the patient's current home meds The patient's current medications include amiodarone 200 mg daily, Eliquis 5 mg twice a day, Plavix, digoxin 125 mcg daily, Jardiance 10 mg daily, metoprolol tartrate 25 mg twice a day, Repatha, and Entresto 24/26 mg as a half tablet twice a day. Alternate historians: None Differential diagnosis for patient with chest pain includes but is not limited to and based on the above HPI, review of systems and physical exam: Pneumonia. unstable angina. angina. Acute coronary syndrome / ND. Pulmonary embolism. Costochondritis / musculoskeletal. Pleurisy. Pericarditis. Esophageal spasm. Pancreatitis. Cholecystitis. Orders placed to evaluate differential diagnosis based on the above differential, HPI and physical exam EKG: Time 2317. Rate 82. Normal sinus rhythm, No ST-T changes, no ectopy, paced rhythm, this was reviewed and interpreted by myself the emergency room physician at 2321 Chest x-ray: No acute process. Small left pleural effusion. This was reviewed and interpreted by myself the emergency room physician. I also reviewed the radiology report. Lab Review: Laboratory results were reviewed and interpreted by myself the emergency room physician. No leukocytosis. No anemia. Stable chronic renal insufficiency with a BUN and creatinine of 37 and 1.9. This is about what he was when he discharged. His proBNP is elevated over previous but he is not requiring more oxygen and his chest x-ray does not show any fluid overload. Assessment of risk: Level of risk: High risk patient. Severe heart failure with multiple comorbidities Hospitalization considerations: I did consider hospitalization. I discussed that briefly with the hospitalist but he did not see any indication for admission. Clinical decision support: Patient has a heart score 4. Primarily because of his risk factors. Also his troponin was elevated initially but repeat troponin is unchanged so this is his baseline. Reexamination: Patient remained stable. No increased work of breathing. No altered mental status. No focal motor deficits. Assessment and plan: Chest pain Edema Severe congestive heart failure ? 40 mg IV Lasix in the emergency room - Discharged home - Discussed plan with patient. Answered any questions. - Evaluation and treatment of this problem were appropriate in the emergency setting. Lab Data 02/14/25 02:00 02/14/25 02:00 Radiology Impressions Chest X-Ray 02/13/25 23:14 IMPRESSION: Small left pleural effusion. Laboratory Results WBC 5.22 10^3/uL (3.29-11.43) 02/14/25 02:00 RBC 5.29 10^6/uL (3.85-5.65) 02/14/25 02:00 Hgb 14.40 g/dL (11.27-16.99) 02/14/25 02:00 Hct 46.1 % (37-53) 02/14/25 02:00 MCV 87.1 fl (82-101) 02/14/25 02:00 MCH 27.2 pg (27-33) 02/14/25 02:00 MCHC 31.2 g/dL (30-55) 02/14/25 02:00 RDW 19.3 % (12.1-15.1) H 02/14/25 02:00 Plt Count 239 10^3/cmm (157-399) 02/14/25 02:00 MPV 9.7 fL (7.4-10.4) 02/14/25 02:00 Neut % (Auto) 75.0 % 02/14/25 02:00 Lymph % (Auto) 13.0 % 02/14/25 02:00 Wake % (Auto) 8.4 % 02/14/25 02:00 Eos % (Auto) 1.7 % 02/14/25 02:00 Baso % (Auto) 0.8 % 02/14/25 02:00 Neut # (Auto) 3.91 10^3/uL (1.8-7.7) 02/14/25 02:00 Lymph # (Auto) 0.7 10^3/uL (0.8-4.8) L 02/14/25 02:00 Wake # (Auto) 0.4 10^3/uL (0.2-0.9) 02/14/25 02:00 Eos # (Auto) 0.1 10^3/uL (0.0-0.8) 02/14/25 02:00 Baso # (Auto) 0.0 10^3/uL (0.0-0.1) 02/14/25 02:00 Nucleated RBC % (auto) 1.5 % 02/14/25 02:00 Nucleated RBCs # 0.1 /100WBC 02/14/25 02:00 Sodium 137 mmol/L (136-145) 02/14/25 02:00 Potassium 4.1 mmol/L (3.5-5.1) 02/14/25 02:00 Chloride 97 mmol/L (98-107) L 02/14/25 02:00 Carbon Dioxide 25 mmol/L (22-29) 02/14/25 02:00 Anion Gap 19.1 (5-19) H 02/14/25 02:00 BUN 37 mg/dL (8-23) H 02/14/25 02:00 Creatinine 1.9 mg/dL (0.7-1.2) H 02/14/25 02:00 GFR Calculation 35.9 mL/min (90-130) L 02/14/25 02:00 Glucose 124 mg/dL (65-115) H 02/14/25 02:00 Calculated Osmolality 294 mOsm/kg (285-295) 02/14/25 02:00 Calcium 8.8 mg/dL (8.5-10.5) 02/14/25 02:00 Total Bilirubin 2.4 mg/dL (0.15-1.2) H 02/14/25 02:00 AST 104 U/L (0-40) H 02/14/25 02:00 ALT 199 U/L (0-41) H 02/14/25 02:00 Alkaline Phosphatase 213 U/L (40-130) H 02/14/25 02:00 Troponin T Baseline 25 ng/L (0-15) H 02/14/25 02:00 Troponin T 120 Minute 22.68 ng/L (0-15) H 02/14/25 03:00 Delta Troponin T -2.32 ABS# (0-10) L 02/14/25 03:00 NT-Pro-B Natriuret Pep 27926 pg/mL (0-125) H 02/14/25 02:00 Total Protein 6.1 g/dL (6.6-8.7) L 02/14/25 02:00 Albumin 3.8 g/dL (3.5-5.2) 02/14/25 02:00 Globulin 2.3 g/dL (1.3-4.6) 02/14/25 02:00 All radiology interpretation(s) finalized by discharge Clincial Decision Support The following clinical decision support tools were used to aid in care of the patient HEART Score -> History: Slightly Suspicous, EKG: Normal, Age: 45-64 yrs, Risk Factors: >/=3 Risk Factors, Troponin: Baseline Trop 16-45 ng/L. Resulting HEART Score: 4. Discharge Plan Discharge Patient Disposition: Home Clinical Impression: Systolic CHF with reduced left ventricular function, NYHA class 2, Edema, Chest pain Condition: Stable Prescriptions: No Action duloxetine 60 mg capsule,delayed release(DR/EC) 60 mg PO DAILY potassium chloride [Klor-Con 10] 10 mEq tablet extended release 10 meq PO DAILY Qty: 90 1RF metoprolol tartrate 25 mg tablet 25 mg PO BID@0900,2100 Qty: 180 3RF digoxin 125 mcg (0.125 mg) tablet 125 mcg PO DAILY Qty: 90 3RF amiodarone [Pacerone] 200 mg tablet 200 mg PO DAILY Qty: 90 0RF sacubitril-valsartan [Entresto] 24-26 mg tablet 0.5 tab PO BID Qty: 60 3RF Jardiance 10 mg tablet 10 mg PO DAILY Qty: 90 3RF bumetanide 1 mg tablet See Rx Instructions .ROUTE .COMPLEX Qty: 90 0RF Dose Instruction: TAKE 2 TABLETS BY MOUTH ONCE DAILY IN THE MORNING THEN 1 ONCE DAILY AT 2PM Rx Instructions: TAKE 2 TABLETS BY MOUTH ONCE DAILY IN THE MORNING THEN 1 ONCE DAILY AT 2PM cetirizine [Zyrtec] 10 mg Tablet 10 mg PO QPM Eliquis 5 mg tablet 5 mg PO BID Qty: 180 2RF Dose Instruction: Take 1 tablet by mouth twice daily Rx Instructions: Take 1 tablet by mouth twice daily clopidogrel 75 mg Tablet 75 mg PO DAILY 90 Days Qty: 90 3RF Repatha SureClick 140 mg/mL pen injector 140 mg SUBCUT Q14D Discharge Orders: Discharge ED (Routine); Ordered 02/14/25 Ordered By: Lian Sharp Referrals: Francis Elmore [Primary Care Provider, Family Practice] Discharge Diet: As Directed Discharge Activity: Increase activity as tolerated Patient Instructions: Chest Pain (ED), Opioid Safety, Pain Management, Patient Portal & Jorge L Instructions Activity Restrictions/Additional Instructions: Please limit your water/fluid intake to less than 1500 cc/day. Thank you for choosing [facility] for your healthcare needs today. You have been screened and evaluated and felt safe for discharge. Health conditions do change or evolve sometimes and as such it is important that you follow up with your Primary Doctor to be re checked, 3-5 days is a general good time frame for follow up. You are always welcome to return to the ED for re assessment if your symptoms are worsening or you have new concerns Print Language: Cymraes Coding Level of Care Code ED Roll Threader Operator for Chg Fwd Heart Score HEART Score Components History: Slightly Suspicous EKG: Normal Age: 45-64 yrs Risk Factors: >/=3 Risk Factors Troponin: Baseline Trop 16-45 ng/L HEART Score RESULT HEART Score: 4
[2025-02-14 01:06] VITALS: BP 127/87; PULSE 77; RESP 14; O2SAT 92
[2025-02-14 02:08] LABS: Hematocrit 46.1 % (37-53); Hemoglobin 14.40 g/dL (11.27-16.99); Mean Corpuscular HGB Conc 31.2 g/dL (30-55); Mean Corpuscular Hemoglobin 27.2 pg (27-33); Mean Corpuscular Volume 87.1 fl (82-101); Nucleated Red Blood Cells % 1.5 %; Platelet Count 239 10^3/cmm (157-399); Red Blood Count 5.29 10^6/uL (3.85-5.65); White Blood Count 5.22 10^3/uL (3.29-11.43)
[2025-02-14 02:29] LABS: Troponin(5th) Baseline 25 ng/L (0-15)
[2025-02-14 02:39] LABS: Alanine Aminotransferase 199 U/L (0-41); Albumin Level 3.8 g/dL (3.5-5.2); Alkaline Phosphatase 213 U/L (40-130); Anion Gap 19.1 (5-19); Aspartate Amino Transferase 104 U/L (0-40); Blood Urea Nitrogen 37 mg/dL (8-23); Calcium 8.8 mg/dL (8.5-10.5); Carbon Dioxide 25 mmol/L (22-29); Chloride 97 mmol/L (98-107); Globulin 2.3 g/dL (1.3-4.6); Glucose 124 mg/dL (65-115); Osmolality Calculated 294 mOsm/kg (285-295); Potassium 4.1 mmol/L (3.5-5.1); Sodium 137 mmol/L (136-145); Total Protein 6.1 g/dL (6.6-8.7)
[2025-02-14 02:44] VITALS: BP 118/69; PULSE 83; RESP 16; O2SAT 97
[2025-02-14] MEDS: FUROsemide 10 mg/mL SDV 4mL 40 MG IVP (03:57)
[2025-02-14 04:02] VITALS: BP 142/91; PULSE 88; RESP 16; O2SAT 96
== END 2025-02-14 04:04 | disposition home or self-care (01) ==
PROVIDERS: Physician Assistant; Emergency Provider Emergency Medicine; PCP Family Medicine
DX: I50.20 Unspecified systolic (congestive) heart failure (principal); I11.0 Hypertensive heart disease with heart failure; R07.9 Chest pain, unspecified; Z79.01 Long term (current) use of anticoagulants; Z79.02 Long term (current) use of antithrombotics/antiplatelets; E78.5 Hyperlipidemia, unspecified; I25.10 Atherosclerotic heart disease of native coronary artery without angina pectoris; Z95.0 Presence of cardiac pacemaker
CPT/HCPCS: 71045; 80053; 83880; 84484; 85025; 93005; 96374; 99285; J1938

== ENCOUNTER 2025-02-26 12:59 | Inpatient (IN) | payer BC, SELFPAY ==
[2025-02-26] VITALS (9 sets, daily range): BP systolic 125–155; BP diastolic 83–97; PULSE 66–87; RESP 14–23; TEMP 35.8–36.4; O2SAT 89–96; BMI 29.8
--- NOTE | 2025-02-26 13:06 | XRR_ITS ---
PROCEDURE INFORMATION: Exam: XR Chest Exam date and time: 02/26/2025 1:54 PM Age: 65 years old Clinical indication: Shortness of breath; Prior surgery; Surgery date: 6+ months; Surgery type: Stents, pacemaker; Additional info: SOB TECHNIQUE: Imaging protocol: Radiologic exam of the chest. Views: 1 view. COMPARISON: CR (CHEST, ) 02/14/2025 1:03 AM FINDINGS: Tubes, catheters and devices: Tips of the left chest wall AICD projects over the right atrium, right ventricle, and left ventricle. Lungs: Mild diffuse interstitial and vascular prominence. No focal nodule or consolidation. Pleural spaces: Small bilateral pleural effusions. Probably unchanged accounting for slight change in positioning. No pneumothorax. Heart/Mediastinum: Stable cardiomegaly and mediastinal contours. Bones/joints: Unremarkable. XR/XR chest 1V portable [id number] IMPRESSION: 1. Small bilateral pleural effusions. Probably unchanged accounting for slight change in positioning. 2. Mild interstitial pulmonary edema. Possible CHF. Lung aeration is unchanged. 3. Cardiomegaly.
--- OUTSIDE RECORDS SUMMARY | 2025-02-26 13:07 | XMS_ITS | Encounter Summary ---
Author Organization [facility] Address [address] [place] [address] Care Team Providers Care Partnership Marketing Manager Name Role Phone Sumi Oliver MD Primary Care Provider Encounter Details Date Type Department Care Team (Latest Contact Info) Description 06/08/1998 Outpatient Historical [facility]- [address] [place] [phone] Mayra Cherry NO ADDRESS ON FILE Pneumonia, organism unspecified(486) (Primary Dx) Social History Tobacco Use Types Packs/Day Years Used Date Smoking Tobacco: Never Assessed Sex and Gender Information Value Date Recorded Sex Assigned at Not on file 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
--- OUTSIDE RECORDS SUMMARY | 2025-02-26 13:07 | XMS_ITS | Encounter Summary ---
Author Organization [facility] Address [address] [place] [address] Care Team Providers Care Director Of Patient Financial Services Name Role Phone Sumi Oliver MD Primary Care Provider Encounter Details Date Type Department Care Team (Latest Contact Info) Description 06/01/2006 Outpatient Historical [facility]- [address] [place] [phone] Jeanna Agee MD NO ADDRESS ON FILE Unspecified Essential Hypertension (Primary Dx); Unspecified Sleep Apnea Social History Tobacco Use Types Packs/Day Years Used Date Smoking Tobacco: Never Assessed Sex and Gender Information Value Date Recorded Sex Assigned at Not on file 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
--- OUTSIDE RECORDS SUMMARY | 2025-02-26 13:07 | XMS_ITS | Encounter Summary ---
Author Organization [facility] Address [address] [place] [address] Care Team Providers Care Freelance Patternmaker Name Role Phone Sumi Oliver MD Primary Care Provider Encounter Details Date Type Department Care Team (Latest Contact Info) Description 06/02/2000 Outpatient Historical [facility] Family Medicine- [address] [place], [place] [phone] Uri Burleson, NO ADDRESS ON FILE Dizziness and giddiness (Primary Dx); Labyrinthitis, unspecified Social History Tobacco Use Types Packs/Day Years Used Date Smoking Tobacco: Never Assessed Sex and Gender Information Value Date Recorded Sex Assigned at Not on file 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
--- OUTSIDE RECORDS SUMMARY | 2025-02-26 13:07 | XMS_ITS | Encounter Summary ---
Author Organization [facility] Address [address] [place] [address] Care Team Providers Care Radio Time Sales Supervisor Name Role Phone Francis Elmore MD Primary Care Provider [phone] Encounter Details Date Type Department Care Team (Late st Contact Info) Description 01/19/2025 Telephone [facility] [address] [facility] [address] [place] [phone] Juli Pinto MD [address] [facility] [address] [place] [phone] Social History Tobacco Use Types Packs/Day Years Used Date Smoking Tobacco: Never Smokeless Tobacco: Current Comments:Quit smoking: one c an q 1.5 days x 33 yrs Alcohol Use Standard Drinks/Week Comments Yes 1.7 (1 standard drink = 0.6 oz p ure alcohol) Sex and Gender Information Value Date Recorded Sex Assigned at Not on file Legal Sex Male 3:09 PM JAVA DEVELOPER CONSULTANT Gender Identity Not on file Sexual Orientation Not on file documented as of this encounter Miscellaneous Notes * Telephone Encounter - Angelia Mosqueda - 01/19/2025 12:25 PM JAVA DEVELOPER CONSULTANT [employer]lon calling and needing the Auth Dept, transferred caller to them DEVELOPER CONSULTANT documented in this encounter Plan of Treatment Upcoming Encounters Date Type Department Care Team (Late st Contact Info) Description 06/09/2025 2:00 PM CDT Office Visit [facility] [place] [address] [phone] Ghislaine Aguilar FNP [address] [phone] 06/26/2025 2:20 PM CDT Office Visit [facility] [address] [place] [phone] Juli Pinto MD [address] [place] [phone] Jolene Carrasco, [facility] [address] [place] [phone] documented as of this encounter Goals Goal Patient Goal Type Associated Problems Recent Progress Patient-Stated? Author Heart Failure Goal Care Plan Heart Failure Problem No Francis Elmore MD documented as of this encounter Visit Diagnoses Not on filedocumented in this encounter Additional Health Concerns Active Problems Noted Date Diagnosed Date Heart Failure Problem 12/09/2024 documented as of this encounter Care Teams Radio Time Sales Supervisor Relationship Specialty Start Date End Date Francis Elmore MD [address] [phone] PCP - General Family Practice 04/04/21 documented as of this encounter
--- OUTSIDE RECORDS SUMMARY | 2025-02-26 13:07 | XMS_ITS | Encounter Summary ---
Author Organization [facility] Address [address] [place] [address] Care Team Providers Care Oil Field Technician Name Role Phone Sumi Oliver MD Primary Care Provider Encounter Details Date Type Department Care Team (Latest Contact Info) Description 06/08/2001 Outpatient Historical [facility] Family Medicine- [place] [address] [place], [place] [phone] Uri Burleson DO NO ADDRESS ON FILE ALLERGY, UNSPECIFIED (Primary Dx); DYSPHAGIA Social History Tobacco Use Types Packs/Day Years Used Date Smoking Tobacco: Never Assessed Sex and Gender Information Value Date Recorded Sex Assigned at Not on file 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
--- OUTSIDE RECORDS SUMMARY | 2025-02-26 13:07 | XMS_ITS | Encounter Summary ---
Author Organization [facility] Address 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 Gender Identity Not on file Sexual Orientation Not on file documented as of this encounter Plan of Treatment Upcoming Encounters Date Type Department Care Team (Late st Contact Info) Description 06/09/2025 2:00 PM CDT Office Visit [facility] [address] [place] [phone] Ghislaine Aguilar FNP [address] [phone] 06/26/2025 2:20 PM CDT Office Visit [facility] [address] [place] [phone] Juli Pinto MD [address] [place] [phone] Jolene Carrasco, VESSEL CREW MEMBER-LICENSED PHYSICAL THERAPY ASSISTANT [address] [place] [phone] documented as of this encounter Goals Goal Patient Goal Type Associated Problems Recent Progress Patient-Stated? Author Heart Failure Goal Care Plan Heart Failure Problem No Francis Elmore MD documented as of this encounter Visit Diagnoses Not on filedocumented in this encounter Additional Health Concerns Active Problems Noted Date Diagnosed Date Heart Failure Problem 12/09/2024 documented as of this encounter Care Teams Wheel Fitter Relationship Specialty Start Date End Date Francis Elmore MD [address] [phone] PCP - General Family Practice 04/04/21 documented as of this encounter
--- OUTSIDE RECORDS SUMMARY | 2025-02-26 13:07 | XMS_ITS | Encounter Summary ---
Author Organization [facility] Address [address] [facility] [place] [address] Care Team Providers Care Polo Coach Name Role Phone Sumi Oliver MD Primary Care Provider Encounter Details Date Type Department Care Team (Latest Contact Info) Description 06/05/2000 Outpatient Historical [facility] Family Medicine [address] [phone] Uri Burleson DO NO ADDRESS ON FILE Dizziness and giddiness (Primary Dx) Social History Tobacco Use Types Packs/Day Years Used Date Smoking Tobacco: Never Assessed Sex and Gender Information Value Date Recorded Sex Assigned at Not on file 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
--- OUTSIDE RECORDS SUMMARY | 2025-02-26 13:07 | XMS_ITS | Clinical Summary ---
Author Organization [facility] Address [address] [facility] Attn: Epic Prelude ADT [place] [address] Care Team Providers Care Equity Research Analyst Name Role Phone Francis Elmore MD Primary Care Provider [phone] Allergies Active Allergy Reactions Criticality Noted Date [...] failure) 01/09/2025 Paroxysmal A-fib 01/09/2025 Atherosclerosis of [place] co ronary artery of [place] heart with stable angina pectoris 12/08/2024 Chronic systolic congestive heart failure 2024 Statin myopathy 12/08/2024 H/O heart artery stent 10/05/2024 Paroxysmal atrial fibrillation 12/04/2021 Obstructive sleep apnea 09/19/2016 Shingles (herpes zoster) polyneuropathy 02/05/20 16 Tobacco use 06/21/2015 Allergic rhinitis 07/18/2011 Hyperlipidemia 12/24/2007 HTN (hypertension) 12/24/2007 Overview (07/04/2020): Updating IMO/ICD9 Code and Description Encounters Date Type Department Care Team Description 02/21/2025 External Device Data STL ABSTRACTION Provider, Abstract 02/16/2025 1:00 PM TRAUMA NURSE Nurse Only [facility] [address] [facility] [address] [place] [phone] Juli Pinto MD Congestive heart failure, unspecified HF chronicity, unspecified heart failure type (CMS/HCC) (Primary Dx); Paroxysmal atrial fibrillation (CMS/HCC); Automatic implantable cardioverter-defibrill ator in situ 2025 Orders Only [facility] [address] [place] [id number] Provider, Abstract 01/31/2025 External Device Data STL ABSTRACTION Provider, Abstract 01/31/2025 External Device Data STL ABSTRACTION Provider, Abstract 01/31/2025 External Device Data STL ABSTRACTION Provider, Abstract 01/26/2025 10:09 AM TRAUMA NURSE Anesthesia Event [facility] Cardiac Heater Installer [address] [place] [phone] Pepe Palomares MD 01/26/2025 9:59 AM TRAUMA NURSE - 01/26/2025 11:47 AM TRAUMA NURSE Surgery [facility] Cardiac Heater Installer [address] [place] [phone] Juli Pinto MD Biventricular ICD Insertion 01/26/2025 8:01 AM TRAUMA NURSE - 01/26/2025 1:45 PM TRAUMA NURSE Hospital Encounter [facility] [address] [place] [address] Juli Pinto MD Paroxysmal A-fib (CMS/HCC) Discharge Disposition: Home or Self Care 01/26/2025 Telephone [facility] [address] [place] [phone] Prema Andrea RN Procedure 01/26/2025 Travel 01/23/2025 Orders Only [place] [address] [place] [phone] Ghislaine Day NP Benign hypertension (Primary Dx) 01/19/2025 Telephone [place] [address] [place] [phone] Juli Pinto MD 01/11/2025 3:20 PM TRAUMA NURSE Office Visit [facility] [address] [facility] [address] [place] [address] Ghislaine Aguilar FNP Decompensated heart failure (CMS/HCC) (Primary Dx); Paroxysmal atrial fibrillation (CMS/HCC); Slow transit constipation; Hemorrhoids, unspecified hemorrhoid type 01/09/2025 Prep for Surgery [facility] [address] [place] [phone] Juli Pinto MD Paroxysmal atrial fibrillation (CMS/HCC) (Primary Dx); Combined systolic and diastolic congestive heart failure, unspecified HF chronicity (CMS/HCC); Paroxysmal A-fib (CMS/HCC) 01/05/2025 Telephone [place] [address] [place] [phone] Prema Andrea RN Procedure; Returning missed call 01/05/2025 Telephone [facility] [address] [place] [phone] Juli Pinto MD [facility] asking for the Nurse to call; Question 01/02/2025 Orders Only [facility] [address] [place] [phone] Provider, Abstract 12/28/2024 Telephone [facility] [address] [place] [phone] Juli Pinto MD of Heart Approved 12/22/[address] [phone] Francis Elmore MD Medication Review 12/21/2024 Orders Only [address] [phone] Francis Elmore MD 12/14/[address] [address] Francis Elmore MD Medication Review 12/13/2024 External Device Data STL ABSTRACTION Provider, Abstract 12/13/2024 External Device Data STL ABSTRACTION Provider, Abstract 12/13/2024 External Device Data STL ABSTRACTION Provider, Abstract 12/13/2024 External Device Data STL ABSTRACTION Provider, Abstract 12/09/2024 Orders Only [address] [address] Francis Elmore MD 12/08/2024 4:00 PM CDT Office Visit [address] [phone] Francis Elmore MD Atherosclerosis of [place] coronary artery of [place] heart with stable angina pectoris (Primary Dx); [...] on file Legal Sex Male 3:09 PM TRAUMA NURSE Gender Identity Not on file Sexual Orientation Not on file Last Filed Vital Signs Vital Sign Reading Time Taken Comments Blood Pressure 141/95 01/26/2025 12:32 PM TRAUMA NURSE Pulse 64 01/26/2025 12:45 PM TRAUMA NURSE Temperature 36.3 C (97.3 F) 01/26/2025 11:40 AM TRAUMA NURSE Respiratory Rate 16 01/26/2025 12:45 PM TRAUMA NURSE Oxygen Saturation 95% 01/26/2025 11:50 AM TRAUMA NURSE Inhaled Oxygen Concentration - - Weight 100.2 kg (221 lb) 01/26/2025 8:25 AM TRAUMA NURSE Height 180.3 cm (5' 11 ) 01/26/2025 8:25 AM TRAUMA NURSE Body Mass Index 30.82 01/26/2025 8:25 AM TRAUMA NURSE Plan of Treatment Upcoming Encounters Date Type Department Care Team (Late st Contact Info) Description 06/09/2025 2:00 PM CDT Office Visit [facility] [address] [phone] Ghislaine Aguilar FNP [address] [address] 06/26/2025 2:20 PM CDT Office Visit [facility] [address] [facility] [address] [place] [phone] Juli Pinto MD [address] [facility] [address] [place] [address] Jolene Carrasco, DOCTOR NATUROPATHIC-SENIOR RESEARCH EXECUTIVE [address] [facility] [address] [place] [address] Health Maintenance Due Date Last [...] Elmore MD Medical Devices Implanted Type Area Ballistic Expert Device Identifier Shelf Expiration Date Model / Serial / Lot Aircraft Electrical Systems Specialist-D Vale Xt Hf Quad Mri [id number] Surescan [id number] - [id number] Implanted:Qty: 1 on 01/26/2025 by Juli Pinto MD at [facility] Defibrillator Left: Chest Wall [employer]- CARD RHYTHM MGMT [id number] 06/03/2026 [id number] / [id number] / Lead Capsurefix Novus Mri 52cm Endocardial Pacing 5076-52 - [id number] Implanted:Qty: 1 on 01/26/2025 by Juli Pinto MD at [facility] Lead Left: Chest Wall [employer]- CRM - BULK BUY [id number] 10/18/2026 5076-52 / [id number] 7V / Description:Amplitude 0.3/0. 5 Lead Sprint Quattro 62cm 6947m-62 - Csc - [id number] Implanted:Qty: 1 on 01/26/2025 by Juli Pinto MD at [facility] Lead Left: Chest Wall [employer]- Nubisio - BULK BUY 11/15/2026 [id number] / [id number] 4V / Lead Attain Lt Heart Str 88cm Performa [id number] - [id number] Implanted:Qty: 1 on 01/26/2025 by Juli Pinto MD at [facility] Lead Left: Chest Wall [employer]- CRM - BULK BUY [id number] 08/09/2026 [id number] / [id number] 2V / Procedures Procedure Name Priority Date/Time Associated Diagnosis Comments MS PROGRAM EVAL, IMPLANT DEVICE CARDVERT/DEFIB,MULTI -LEAD W/IN GLOBAL Routine 02/16/2025 1:04 PM TRAUMA NURSE Congestive heart failure, unspecified HF chronicity, unspecified heart failure type (CMS/HCC) Paroxysmal atrial fibrillation (CMS/HCC) Automatic implantable cardioverter-defib rillator in situ COMPREHENSIVE METABOLIC PANEL Routine 2025 10:21 AM TRAUMA NURSE TELEMETRY REPORT 01/27/2025 10:16 AM TRAUMA NURSE XR CHEST PA AND LATERAL 2 VW Pending Discharge 01/26/2025 1:31 PM TRAUMA NURSE EKG 12-LEAD Pending Discharge 01/26/2025 12:26 PM TRAUMA NURSE EKG 12-LEAD Routine 01/26/2025 12:26 PM TRAUMA NURSE BIVENTRICULAR ICD INSERTION W ANES Routine 01/26/2025 11:28 AM TRAUMA NURSE CHF (congestive heart failure) (CMS/HCC) Paroxysmal A-fib (CMS/HCC) BASIC METABOLIC PANEL Routine 01/26/2025 8:58 AM TRAUMA NURSE CBC WITH DIFFERENTIAL Routine 01/26/2025 8:58 AM TRAUMA NURSE PROTIME-INR Routine 01/26/2025 8:50 AM TRAUMA NURSE EKG 12-LEAD Pending Discharge 01/26/2025 8:27 AM TRAUMA NURSE XR CHEST PA OR AP 1 VW Pending Discharge 01/26/2025 8:19 AM TRAUMA NURSE COMPREHENSIVE METABOLIC PANEL Routine 01/02/2025 1:28 PM CDT from Last 3 Months Results * MS PROGRAM EVAL, IMPLANT DEVICE CARDVERT/DEFIB,MULTI-LEAD W/IN GLOBAL (02/16/2025 1:04 PM TRAUMA NURSE) 02/16/2025 1:04 PM TRAUMA NURSE Narrative INTERFACE SYSTEM - 02/16/2025 3:53 PM TRAUMA NURSE Office Device Check Report Date of Procedure: February 16, 2025 Events: Atrial: 1 (100%), eliquis, per med list. Ventricular: No tachyarrhythmias detected, no therapy delivered Other Episodes: 0 Changes: No changes. Comments: Patient presents to Cardiac Device Office today for 3 week wound check. left upper quadrant chest incision noted intact and well approximated, with surgical rosa elena intact. Area noted healing well per Dr. Pinto's protocol. Suture line intact without redness, swelling, or drainage. Patient denies fever or chills. Surgical rosa elena were removed in sterile manner. Steri strips were applied in sterile manner. Normal multi chamber ICD function with stable thresholds and impedances. Battery reserve is 9.3 years. Presenting - Atrial Sensing, irregularly irregular, C/W atrial fib, and BiVentricular Pacing, with Capture. [place] complexes noted and sensed. Underlying - Atrial fib w/ventricular response rate 80-90s/min. . Instructed patient re: incision care, arm restrictions and recommended follow up. Patient verbalized understanding of all instructions. Follow-up 06-26-2024 EP Provider and Device Check. . See attached report for details. No charge. Procedure Note Provider, Historical - 02/16/2025 Office Device Check Report Date of Procedure: February 16, 2025 Events: Atrial: 1 (100%), eliquis, per med list. Ventricular: No tachyarrhythmias detected, no therapy delivered Other Episodes: 0 Changes: No changes. Comments: Patient presents to Cardiac Device Office today for 3 week wound check.left upper quadrant chest incision noted intact and well approximated,with surgical rosa elena intact. Area noted healing well per Dr. Buciootowendyl. Suture line intact without redness, swelling, or drainage. Patient denies fever or chills. Surgicalstaples were removed in sterile manner. Steri strips were applied insterile manner. Normal multi chamber ICD function with stable thresholds and impedances. Battery reserve is 9.3 years. Presenting - Atrial Sensing, irregularly irregular, C/W atrial fib, andBiVentricular Pacing, with Capture. [place] complexes noted and sensed. Underlying - Atrial fib w/ventricular response rate 80-90s/min. . Instructed patient re: incision care, arm restrictions and recommendedfollow up. Patient verbalized understanding of all instructions. Follow-up 06-26-2024 EP Provider and Device Check. . See attached report for details. No charge. us Juli Pinto MD CARDIAC SERVICES ORDERABLES E dited Result - Final INTERFACE SYSTEM Refer to clinic/hospital department * COMPREHENSIVE METABOLIC PANEL (2025 10:21 AM TRAUMA NURSE) Only the most recent of2 resultswithin the time period is included. Blood us Abstract Provider CHEMISTRY ORDERABLES Final Res ult * TELEMETRY REPORT (01/27/2025 10:16 AM TRAUMA NURSE) us Provider Scanning ECG ORDERABLES Final Result * XR CHEST PA AND LATERAL 2 VW (01/26/2025 1:31 PM TRAUMA NURSE) Anatomical Region Laterality Modality Chest Computed Radiogr aphy 01/26/2025 1:31 PM TRAUMA NURSE Impressions 01/26/2025 1:40 PM TRAUMA NURSE IMPRESSION: Interval cardiac ICD placement as above. Narrative 01/26/2025 1:40 PM TRAUMA NURSE Exam: XR CHEST PA AND LATERAL 2 [...] Result * EKG 12-LEAD (01/26/2025 12:26 PM TRAUMA NURSE) Only the most recent of3 resultswithin the time period is included. 01/26/2025 12:2 6 PM TRAUMA NURSE Narrative INTERFACE SYSTEM - 01/26/2025 7:01 PM TRAUMA NURSE [address] [address] Test Date: 2025-01-26 Pat Name: COLIN MOYA Department: 12 Room: [place] [address] Gender: Male Restorative Art Embalmer: [id number] : 1960 Requested By: Order Number: [id number] Reading MD: Zoraida Staples Measurements Intervals [place] Rate: 70 P: 0 MS: 0 QRS: -65 QRSD: 160 T: 89 QT: 502 QTc: 542 Interpretive Statements Ventricular-paced rhythm Abnormal ECG Electronically Signed On 01-26-2025 19:01:04 TRAUMA NURSE by Zoraida Staples Procedure Note Zoraida Stalpes MD - 01/26/[address] [address] Test Date: 2025-01-26 Pat Name: COLIN MOYA Department: 12 Room: [place] [address] Gender: Male Restorative Art Embalmer: [id number] : 1960 Requested By: Order Number: [id number] Reading MD: Zoraida Staples Measurements Intervals [place] Rate: 70 P: 0 MS: 0 QRS: -65 QRSD: 160 T: 89 QT: 502 QTc: 542 Interpretive Statements Ventricular-paced rhythm Abnormal ECG Electronically Signed On 01-26-2025 19:01:04 TRAUMA NURSE by Zoraida Staples us Juli Pinto MD ECG ORDERABLES Final Result INTERFACE SYSTEM Refer to clinic/hospital department * BIVENTRICULAR ICD INSERTION W ANES (01/26/2025 11:28 AM TRAUMA NURSE) Narrative [facility] - 01/26/2025 11:37 AM TRAUMA NURSE Title procedure: CRTD implant POSTPROCEDURE DIAGNOSES: 1. [...] LEAD ATTAIN LT HEART STR 88CM PERFORMA [id number]. There was no extracardiac stimulation on the [...] MD CUP EP ORDERABLES Final Resul t [facility] [id number] [address] [facility] [address] [place] [address], * (ABNORMAL) CBC WITH DIFFERENTIAL (01/26/2025 8:58 AM TRAUMA NURSE) WBC 4.6(L) 4.8 - 10.8 K/uL 01/26/2025 9:14 AM [facility] RBC 4.53(L) 4.60 - 6.20 M/uL 01/26/2025 9:14 AM [facility] HEMOGLOBIN 12.7(L) 14.0 - 18.0 g/dL 01/26/2025 9:14 AM [facility] HEMATOCRIT 40.9(L) 41.0 - 53.0 % 01/26/2025 9:14 AM [facility] MCV 90.3 84.0 - 103.0 fL 01/26/2025 9:14 AM [facility] MCH 28.0 27.0 - 34.0 pg 01/26/2025 9:14 AM [facility] MCHC 31.1 30.0 - 35.0 g/dL 01/26/2025 9:14 AM [facility] PLATELETS 267 140 - 440 K/uL 01/26/2025 9:14 AM [facility] [employer] [facility] MPV 9.8 8.9 - 12.8 fL 01/26/2025 9:14 AM [facility] [employer] [facility] RDW 18.7(H) 11.0 - 14.5 % 01/26/2025 9:14 AM [facility] [employer] [facility] RDW-STDEV 57.5(H) 37.0 - 54.0 fL 01/26/2025 9:14 AM [facility] [employer] [facility] NEUTROPHILS 69 42 - 75 % 01/26/2025 9:14 AM [facility] LYMPHOCYTES 16(L) 24 - 44 % 01/26/2025 9:14 AM [facility] [employer] [facility] MONOCYTES 9 2 - 10 % 01/26/2025 9:14 AM [facility] [employer] [facility] EOSINOPHILS 3 0 - 7 % 01/26/2025 9:14 AM [facility] [employer] [facility] BASOPHILS 1 0 - 1 % 01/26/2025 9:14 AM [facility] [employer] [facility] IMMATURE GRANULOCYTES 3(H) 0 - 2 % 01/26/2025 9:14 AM [facility] [employer] [facility] NEUTROPHIL ABSOLUTE 3.12 2.00 - 8.00 K/uL 01/26/2025 9:14 AM [facility] LYMPHOCYTE ABSOLUTE 0.73(L) 1.20 - 4.00 K/uL 01/26/2025 9:14 AM [facility] [employer] [facility] MONOCYTE ABSOLUTE 0.40 0.10 - 0.60 K/uL 01/26/2025 9:14 AM [facility] [employer] [facility] EOSINOPHIL ABSOLUTE 0.12 0.00 - 0.70 K/uL 01/26/2025 9:14 AM [facility] [employer] [facility] BASOPHILS ABSOLUTE 0.06 0.00 - 0.20 K/uL 01/26/2025 9:14 AM [facility] [employer] [facility] IMMATURE GRANULOCYTES ABSOLUTE 0.12(H) 0.00 - 0.10 K/uL 01/26/2025 9:14 AM [facility] [employer] [facility] SMEAR REVIEWED: NA - Not Applicable 01/26/2025 9:14 AM [facility] Blood Venipuncture / Unknown 01/26/2025 8:58 AM TRAUMA NURSE 01/26/2025 9:07 AM TRAUMA NURSE us Juli Pinto MD HEMATOLOGY ORDERABLES Final R esult [facility] CLIA # [id number] [address] [place] [address] * (ABNORMAL) BASIC METABOLIC PANEL (01/26/2025 8:58 AM TRAUMA NURSE) SODIUM 140 136 - 145 mmol/L 01/26/2025 9:41 AM [facility] POTASSIUM 3.5 3.5 - 5.1 mmol/L 01/26/2025 9:41 AM [facility] CHLORIDE 102 98 - 107 mmol/L 01/26/2025 9:41 AM [facility] CO2 25 22 - 29 mmol/L 01/26/2025 9:41 AM [facility] CALCIUM 8.3(L) 8.8 - 10.2 mg/dL 01/26/2025 9:41 AM [facility] BUN 31(H) 8 - 23 mg/dL 01/26/2025 9:41 AM [facility] CREATININE 1.62(H) 0.67 - 1.17 mg/dL 01/26/2025 9:41 AM [facility] GLUCOSE 117(H) 74 - 99 mg/dL 01/26/2025 9:41 AM [facility] GFR 47(L) >=60 mL/min/1. 73 sq meter 01/26/2025 9:41 AM [facility] Comment:eGFR calculated with 2020 CKD-EPI equation. Vegetarian diet, extremely high or low muscle mass, and may affect results. Cystatin C with Glomerular Filtration Rate is a suitable alternative for these patients. ANION GAP 13 9 - 20 mmol/L 01/26/2025 9:41 AM [facility] Blood Venipuncture / Unknown 01/26/2025 8:58 AM TRAUMA NURSE 01/26/2025 9:07 AM TRAUMA NURSE us Juli Pinto MD CHEMISTRY ORDERABLES Final Re sult Performing Organization Address [facility] Co de Phone Number [facility] CLIA # [id number] [address] [place] [address] * PROTIME-INR (01/26/2025 8:50 AM TRAUMA NURSE) PROTIME 14.7 12.7 - 14.9 Seconds 01/26/2025 9:20 AM [facility] [employer] [facility] INR 1.1 0.8 - 1.2 01/26/2025 9:20 AM [facility] Blood Venipuncture / Unknown 01/26/2025 8:50 AM TRAUMA NURSE 01/26/2025 8:53 AM TRAUMA NURSE Narrative [facility] [employer] [facility] - 01/26/2025 9:20 AM TRAUMA NURSE Expected Values for INR: DVT/PE Goal INR 2.5; range 2.0 - 3.0 Valve Replacement Tissue Goal INR 2.5; range 2.0 - 3.0 Valve Replacement Mechanical Goal INR 3.0; range 2.5 - 3.5 POST-VT Goal INR 2.5; range 2.0 - 3.0 or Goal INR 3.0; range 2.5 - 3.5 Atrial Fibrillation Goal INR 2.5; range 2.0 - 3.0 Ischemic Stroke Goal INR 2.5; range 2.0 - 3.0 us Juli Pinto MD HEMATOLOGY ORDERABLES Final R esult Performing Organization Address [facility] Co de Phone Number [facility] CLIA # [id number] [address] [place], [place] [id number] * XR CHEST PA OR AP 1 VW (01/26/2025 8:19 AM TRAUMA NURSE) Anatomical Region Laterality Modality Chest Computed Radiogr aphy 01/26/2025 8:19 AM TRAUMA NURSE Impressions 01/26/2025 9:09 AM TRAUMA NURSE IMPRESSION: Please see below. Exam: XR CHEST [...] acute osseous abnormality. IMPRESSION: 1. No infiltrates. Juli Pinto MD DIAGNOSTIC IMAGING ORDERABLES Final Result from Last 3 Months Additional Health Concerns Active Problems Noted Date Diagnosed Date Heart Failure Problem 12/09/2024 Insurance [facility] BLUE PREFERRED Advance Directives For more information, please contact: [phone] * Full Code (Latest Code Status on File) Date Activated Date Inactivated Comments 01/26/2025 12:05 PM 01/26/2025 3:45 PM * Full Code Date Activated Date Inactivated Comments 01/26/2025 8:06 AM 01/26/2025 12:05 PM Care Teams Equity Research Analyst Relationship Specialty Start Date End Date Francis Elmore MD [address] [address] PCP - General Family Practice 04/04/21
--- OUTSIDE RECORDS SUMMARY | 2025-02-26 13:07 | XMS_ITS | Encounter Summary ---
Author Organization [facility] Address [address] [place] [address] Care Team Providers Care Surface Supply Breathing Apparatus Name Role Phone Sumi Oliver MD Primary Care Provider [phone] Encounter Details Date Type Department Care Team (Latest Contact Info) Description 04/17/2006 Outpatient Historical [facility] Family Medicine- [address] [place] [phone] Jeanna Agee MD NO ADDRESS ON FILE Other Alteration of Consciousness (Primary Dx); Elevated Blood Pressure Reading without Diagnosis of Hypertension Social History Tobacco Use Types Packs/Day Years Used Date Smoking Tobacco: Never Assessed Sex and Gender Information Value Date Recorded Sex Assigned at Not on file 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
--- OUTSIDE RECORDS SUMMARY | 2025-02-26 13:07 | XMS_ITS | Encounter Summary ---
Author Organization [facility] Address [address] [place] [address] Care Team Providers Care Distribution Sales Representative Name Role Phone Sumi Oliver MD Primary Care Provider Encounter Details Date Type Department Care Team (Latest Contact Info) Description 04/24/2006 Outpatient Historical [facility] Family Medicine- [address] [place] [phone] Jeanna Agee MD NO ADDRESS ON FILE Unspecified Essential Hypertension (Primary Dx); Mixed Hyperlipidemia Social History Tobacco Use Types Packs/Day Years Used Date Smoking Tobacco: Never Assessed Sex and Gender Information Value Date Recorded Sex Assigned at Not on file 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
--- OUTSIDE RECORDS SUMMARY | 2025-02-26 13:07 | XMS_ITS | Encounter Summary ---
Author Organization [facility] Address [address] [place] [address] Care Team Providers Care Roll Up Machine Operator Name Role Phone Sumi Oliver MD Primary Care Provider Encounter Details Date Type Department Care Team (Latest Contact Info) Description 06/22/2001 Outpatient Historical [facility] Family Medicine- [address] [place], [place] [phone] Uri Burleson, NO ADDRESS ON FILE HYPERTENSION NOS (Primary Dx); ALLERGY, UNSPECIFIED Social History Tobacco Use Types Packs/Day Years Used Date Smoking Tobacco: Never Assessed Sex and Gender Information Value Date Recorded Sex Assigned at Not on file 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
--- OUTSIDE RECORDS SUMMARY | 2025-02-26 13:07 | XMS_ITS | Encounter Summary ---
Author Organization [facility] Address [address] [facility] [place] [address] Care Team Providers Care Wall Crane Operator Name Role Phone Sumi Oliver MD Primary Care Provider Encounter Details Date Type Department Care Team (Latest Contact Info) Description 10/30/2006 Outpatient Historical [facility] Family Medicine- [address] [place] [phone] Jeanna Agee MD NO ADDRESS ON FILE Sprain and Strain of Unspecified Site of Elbow and Forearm (Primary Dx) Social History Tobacco Use Types Packs/Day Years Used Date Smoking Tobacco: Never Assessed Sex and Gender Information Value Date Recorded Sex Assigned at Not on file 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
--- OUTSIDE RECORDS SUMMARY | 2025-02-26 13:07 | XMS_ITS | Clinical Summary ---
Author Organization [facility] Address 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 Gender Identity Not on file Sexual Orientation Not on file Occupation Industry Job Start Date Job End Date Not on file Not on file Not on file Not on file Last Filed Vital Signs Vital Sign Reading Time Taken Comments Blood Pressure 158/92 05/03/2020 1:24 PM CALCULATING MACHINE OPERATOR Pulse 96 05/03/2020 1:24 PM CALCULATING MACHINE OPERATOR Temperature 36.7 C (98 F) 05/03/2020 1:24 PM CALCULATING MACHINE OPERATOR Respiratory Rate 20 05/03/2020 1:24 PM 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
--- OUTSIDE RECORDS SUMMARY | 2025-02-26 13:07 | XMS_ITS | Encounter Summary ---
Author Organization [facility] Address [address] [facility] [place] [address] Care Team Providers Care Former Hand Name Role Phone Sumi Oliver MD Primary Care Provider Encounter Details Date Type Department Care Team (Latest Contact Info) Description 05/08/2006 Outpatient Historical [facility] Family Medicine- [address] [place] [phone] Jeanna Agee MD NO ADDRESS ON FILE Unspecified Essential Hypertension (Primary Dx); Unspecified Sleep Apnea Social History Tobacco Use Types Packs/Day Years Used Date Smoking Tobacco: Never Assessed Sex and Gender Information Value Date Recorded Sex Assigned at Not on file 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
--- NOTE | 2025-02-26 14:01 | ECG_ITS ---
[facility] Test Date: 2025-02-26 Pat Name: Colin Moya Department: Room: Gender: Male Annual Giving Director: : [id number] Requested By: Anita Sena Order Number: [id number] Reading MD: JB MANZANO Measurements Intervals Lutz Rate: 71 P: 0 PA: 0 QRS: -81 QRSD: 169 T: 60 QT: 458 QTc: 501 Interpretive Statements ELECTRONIC VENTRICULAR PACEMAKER ABNORMAL RHYTHM ECG Compared to ECG 02/13/2025 23:17:23 No significant changes Electronically Signed On 02-28-2025 12:02:50 CHIP DRIER by JB MANZANO [email or web address]
--- NOTE | 2025-02-26 14:12 | W.ED.RECABL ---
Documented by User: DOUG Wiggins 02/26/25 18:35 HPI - Recheck/Abnormal Lab/Rx General: Chief Complaint: Recheck/Abnormal Lab/Rx Stated Complaint: High BP Feet Swelling SOB N Time Seen by Provider: 02/26/25 13:57 History of Present Illness: Patient is a pleasant 65-year-old gentleman with A-fib on amiodarone, Eliquis, ischemic cardiomyopathy, AICD PM, HTN, and EF of 15-20%, presents to the emergency room with worsening shortness of breath, early satiety, and nausea, lower extremity edema, x 1 day. Last p.m. he did have chest tightness/pain, as well as this morning. Family notes his blood pressure was elevated last p.m., requiring additional metoprolol. He states compliance to his other medications Entresto, metoprolol, Jardiance, Plavix. 10/08/24 [facility] (last stent) 1. 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 IVUS of high OM/ Ramus artery, no significant disease seen. 2. 1st Diagonal to 1st Diagonal was treated with a Balloon, and Balloon. 3. 1st Diagonal to 1st Diagonal was treated with a Drug Eluting Stent. Related Data Home Medications ?Medication ?Instructions ?Recorded ?Confirmed duloxetine 60 mg capsule,delayed 60 mg PO DAILY 12/25/21 02/26/25 release evolocumab 140 mg/mL subcutaneous 140 mg SUBCUT Q14D 10/05/24 02/26/25 pen injector (Emma Fajardo) cetirizine 10 mg tablet (Zyrtec) 10 mg PO QPM 01/06/25 02/26/25 docusate sodium 100 mg capsule 100 mg PO BID 02/26/25 02/26/25 sacubitril 24 mg-valsartan 26 mg 0.5 tab PO BID 02/26/25 02/26/25 tablet Previous Rx's ?Medication ?Instructions ?Recorded digoxin 125 mcg (0.125 mg) tablet 125 mcg PO DAILY #90 tabs 07/11/24 clopidogrel 75 mg tablet 75 mg PO DAILY 90 days #90 tabs 08/19/24 metoprolol tartrate 25 mg tablet 25 mg PO BID@0900,2100 #180 tabs 08/25/24 apixaban 5 mg tablet (Eliquis) 5 mg PO BID #180 tabs 01/10/25 empagliflozin 10 mg tablet 10 mg PO DAILY #90 tabs 01/25/25 (Jardiance) bumetanide 1 mg tablet See Rx Instructions .Route 02/07/25 .COMPLEX #90 tabs potassium chloride 10 mEq See Rx Instructions .Route 02/14/25 tablet,extended release .COMPLEX #90 tabs amiodarone 200 mg tablet (Pacerone) 200 mg PO DAILY #90 tabs 02/15/25 Allergies Allergy/AdvReac Type Severity Reaction Status Date / Time simvastatin Allergy Severe N/V Verified 02/07/25 08:24 Review of Systems Const: Reports: fever(s), chills, body aches and change in weight Eyes: Denies: change in vision or blurry vision Card: Reports: chest pain (a little bit but not bothersome), palpitations (a little bit), swelling of feet/ankles (feet swells), dyspnea on exertion, orthopnea and leg pain with exertion; Denies: irregular heart rhythm or lightheadedness Resp: Reports: dyspnea GI: Denies: abdominal pain, nausea or vomiting : Denies: flank pain or difficulty urinating Musc: Denies: neck pain, back pain or extremity swelling Neuro: Reports: weakness in extremities, difficulty walking and dizziness; Denies: headache(s) or numbness in extremities Psych: Reports: visual hallucinations PFSH ED PFSH: Medical History (Updated 02/26/25 @ 15:39 by DOUG Wiggins) Pulmonary hypertension Atrial fibrillation with rapid ventricular response Acute exacerbation of CHF (congestive heart failure) Obstructive sleep apnea SOBOE (shortness of breath on exertion) Postherpetic neuralgia Tobacco use Exercise intolerance Allergic rhinitis Shingles Hypertension Paroxysmal atrial fibrillation Labile blood pressure Dyspnea Hyperlipidemia GIA on CPAP Dizziness Chest discomfort Surgical History No history of previous surgery Family History Father CAD (coronary artery disease) Stroke, Onset Age: 35 Grandmother Cancer Mother Stroke Sister Stroke Denies family history of Diabetes Clotting disorder Dementia Chronic kidney disease (CKD) Suicide Anesthesia complication Bleeding disorder Lung disease Social History (Reviewed 02/07/25 @ 11:28 by REJI Morejon Smoking and tobacco/nicotine status: never used tobacco/nicotine Alcohol intake: current Alcohol intake frequency: few times a month Substance/Drug Use: never Physical Exam Const: COMMON NORMALS: patient oriented x3 HENMT: COMMON NORMALS: normocephalic and atraumatic HEAD & SCALP: normocephalic and atraumatic Neck/C-Spine: COMMON NORMALS: full ROM and supple Chest: COMMONS NORMALS: normal inspection of the chest and normal palpation of entire chest wall Resp: COMMON NORMALS: normal respiratory effort, No retractions and No use of accessory muscles EFFORT & INSPECTION: Yes able to speak in complete sentences and Yes labored AUSCULTATION: crackles Laterality: bilateral Cardio: COMMON NORMALS: regular rate, regular rhythm and No murmurs present (Cardio) RATE: regular rate RHYTHM: regular rhythm GI: COMMON NORMALS: Normal to inspection, nondistended, normoactive bowel sounds present, Soft to palpation, non-tender and no masses PALPATION: Yes Soft to palpation Extremity: COMMON NORMALS: full ROM NARRATIVE EXTREMITY EXAM: 2+ edema to lower extremity Neuro: COMMON NORMALS: patient oriented x3, moves all extremities and no focal motor deficits Psych: COMMON NORMALS: mental status grossly normal, Normal thought process present and cooperative THOUGHT PROCESS: Normal thought process present Skin: COMMON NORMALS: no rashes or lesions noted and no wounds GENERAL SKIN EXAM: no rashes or lesions noted Course Reevaluation(s): Reevaluation #1: Patient had hallucination with thinking he had mashed tater's and gravy in front of him. Son now notes that he has had issues the last 3 days. Oxygen saturation 88%, placed on 2 L. Consultations: Consultation #1: d/w Dr. Florence-admit [facility] Vital Signs: Vital signs: Vital Signs Temperature 96.4 F L 02/26/25 13:00 Pulse Rate 75 02/26/25 18:09 Respiratory Rate 20 H 02/26/25 17:45 Blood Pressure 135/83 02/26/25 18:09 Pulse Oximetry 91 02/26/25 18:09 Oxygen Delivery Me thod Nasal Cannula 02/26/25 16:30 Oxygen Flow Rate 2 02/26/25 16:30 MDM - Recheck/Abnormal Lab/Rx Medical Decision Making Patient is 65-year-old cardiac cripple with cardiomyopathy and EF of 15-20% AICD PPM, ischemic cardiomyopathy, with last stent in October, states compliance to medications and diet, unknown amount of weight gain, increasing shortness of breath, hallucinations. He had chest tightness associated. Medical Records I reviewed the patient's medical records. Lab Data I reviewed the patient's lab results. 02/26/25 14:15 02/26/25 14:15 Radiology Impressions Chest X-Ray 02/26/25 13:06 IMPRESSION: 1. Small bilateral pleural effusions. Probably unchanged accounting for slight change in positioning. 2. Mild interstitial pulmonary edema. Possible CHF. Lung aeration is unchanged. 3. Cardiomegaly. Head CT 02/26/25 14:49 IMPRESSION: No acute intracranial abnormality. Laboratory Results WBC 5.49 10^3/uL (3.29-11.43) 02/26/25 14:15 RBC 5.93 10^6/uL (3.85-5.65) H 02/26/25 14:15 Hgb 15.80 g/dL (11.27-16.99) 02/26/25 14:15 Hct 50.5 % (37-53) 02/26/25 14:15 MCV 85.2 fl (82-101) 02/26/25 14:15 MCH 26.6 pg (27-33) L 02/26/25 14:15 MCHC 31.3 g/dL (30-55) 02/26/25 14:15 RDW 19.4 % (12.1-15.1) H 02/26/25 14:15 Plt Count 248 10^3/cmm (157-399) 02/26/25 14:15 MPV 11.0 fL (7.4-10.4) H 02/26/25 14:15 Neut % (Auto) 75.7 % 02/26/25 14:15 Lymph % (Auto) 12.8 % 02/26/25 14:15 E[place] % (Auto) 8.7 % 02/26/25 14:15 Eos % (Auto) 0.7 % 02/26/25 14:15 Baso % (Auto) 0.5 % 02/26/25 14:15 Neut # (Auto) 4.15 10^3/uL (1.8-7.7) 02/26/25 14:15 Lymph # (Auto) 0.7 10^3/uL (0.8-4.8) L 02/26/25 14:15 [place] # (Auto) 0.5 10^3/uL (0.2-0.9) 02/26/25 14:15 Eos # (Auto) 0.0 10^3/uL (0.0-0.8) 02/26/25 14:15 Baso # (Auto) 0.0 10^3/uL (0.0-0.1) 02/26/25 14:15 Nucleated RBC % (auto) 0.4 % 02/26/25 14:15 Nucleated RBCs # 0.0 /100WBC 02/26/25 14:15 Sodium 134 mmol/L (136-145) L 02/26/25 14:15 Potassium 4.6 mmol/L (3.5-5.1) 02/26/25 14:15 Chloride 90 mmol/L (98-107) L 02/26/25 14:15 Carbon Dioxide 27 mmol/L (22-29) 02/26/25 14:15 Anion Gap 21.6 (5-19) H 02/26/25 14:15 BUN 48 mg/dL (8-23) H 02/26/25 14:15 Creatinine 2.7 mg/dL (0.7-1.2) H 02/26/25 14:15 GFR Calculation 23.9 mL/min (90-130) L 02/26/25 14:15 Glucose 87 mg/dL (65-115) 02/26/25 14:15 Calculated Osmolality 290 mOsm/kg (285-295) 02/26/25 14:15 Calcium 9.8 mg/dL (8.5-10.5) 02/26/25 14:15 Magnesium 2.7 mg/dL (1.7-2.3) H 02/26/25 14:15 Total Bilirubin 3.9 mg/dL (0.15-1.2) H 02/26/25 14:15 AST 338 U/L (0-40) H 02/26/25 14:15 ALT 247 U/L (0-41) H 02/26/25 14:15 Alkaline Phosphatase 238 U/L (40-130) H 02/26/25 14:15 Troponin T Baseline 40 ng/L (0-15) H 02/26/25 14:15 Troponin T 60 Minute 40.57 ng/L (0-15) H 02/26/25 15:07 Delta Troponin T 0.57 ABS# (0-10) 02/26/25 15:07 NT-Pro-B Natriuret Pep 85069 pg/mL (0-125) H 02/26/25 14:15 Total Protein 6.8 g/dL (6.6-8.7) 02/26/25 14:15 Albumin 4.2 g/dL (3.5-5.2) 02/26/25 14:15 Globulin 2.6 g/dL (1.3-4.6) 02/26/25 14:15 TSH 8.70 uIU/mL (0.27-4.20) H 02/26/25 14:15 Digoxin 2.0 ng/mL (0.6-1.2) H 02/26/25 14:15 Influenza A (PCR) Negative (Negative) 02/26/25 14:53 Influenza Type B (PCR) Negative (Negative) 02/26/25 14:53 RSV (PCR) Negative (Negative) 02/26/25 14:53 SARS-CoV-2 (PCR) Negative (Negative) 02/26/25 14:53 All radiology interpretation(s) finalized by discharge EKG Data EKG 1: Interpretation: paced aicd EKG 2: Interpretation: aicd pm Discharge Plan Discharge Patient Disposition: Admitted As Inpatient Admit Provider: Ayesha Lancaster Clinical Impression: Acute systolic (congestive) heart failure, Acute hypoxic respiratory failure, KERON (acute kidney injury) Digoxin toxicity Qualifiers: Encounter type: initial encounter Injury intent: accidental or unintentional Qualified Code(s): T46.0X1A - Poisoning by cardiac-stimulant glycosides and drugs of similar action, accidental (unintentional), initial encounter Condition: Stable Discharge Diet: Low Salt Coding Level of Care Code ED Event Specialist for Chg Fwd Documented by User: Anita Sena MD 02/26/25 19:53 HPI - Recheck/Abnormal Lab/Rx General: Chief Complaint: Recheck/Abnormal Lab/Rx Stated Complaint: High BP Feet Swelling SOB N Time Seen by Provider: 02/26/25 13:57 Related Data Home Medications ?Medication ?Instructions ?Recorded ?Confirmed duloxetine 60 mg capsule,delayed 60 mg PO DAILY 12/25/21 02/26/25 release evolocumab 140 mg/mL subcutaneous 140 mg SUBCUT Q14D 10/05/24 02/26/25 pen injector (Emma Fajardo) cetirizine 10 mg tablet (Zyrtec) 10 mg PO QPM 01/06/25 02/26/25 docusate sodium 100 mg capsule 100 mg PO BID 02/26/25 02/26/25 sacubitril 24 mg-valsartan 26 mg 0.5 tab PO BID 02/26/25 02/26/25 tablet Previous Rx's ?Medication ?Instructions ?Recorded digoxin 125 mcg (0.125 mg) tablet 125 mcg PO DAILY #90 tabs 07/11/24 clopidogrel 75 mg tablet 75 mg PO DAILY 90 days #90 tabs 08/19/24 metoprolol tartrate 25 mg tablet 25 mg PO BID@0900,2100 #180 tabs 08/25/24 apixaban 5 mg tablet (Eliquis) 5 mg PO BID #180 tabs 01/10/25 empagliflozin 10 mg tablet 10 mg PO DAILY #90 tabs 01/25/25 (Jardiance) bumetanide 1 mg tablet See Rx Instructions .Route 02/07/25 .COMPLEX #90 tabs potassium chloride 10 mEq See Rx Instructions .Route 02/14/25 tablet,extended release .COMPLEX #90 tabs amiodarone 200 mg tablet (Pacerone) 200 mg PO DAILY #90 tabs 02/15/25 Allergies Allergy/AdvReac Type Severity Reaction Status Date / Time simvastatin Allergy Severe N/V Verified 02/07/25 08:24 [facility] ED PFSH: Medical History (Updated 02/26/25 @ 15:39 by DOUG Wiggins) Pulmonary hypertension Atrial fibrillation with rapid ventricular response Acute exacerbation of CHF (congestive heart failure) Obstructive sleep apnea SOBOE (shortness of breath on exertion) Postherpetic neuralgia Tobacco use Exercise intolerance Allergic rhinitis Shingles Hypertension Paroxysmal atrial fibrillation Labile blood pressure Dyspnea Hyperlipidemia GIA on CPAP Dizziness Chest discomfort Surgical History No history of previous surgery Family History Father CAD (coronary artery disease) Stroke, Onset Age: 35 Grandmother Cancer Mother Stroke Sister Stroke Denies family history of Diabetes Clotting disorder Dementia Chronic kidney disease (CKD) Suicide Anesthesia complication Bleeding disorder Lung disease Social History Smoking and tobacco/nicotine status: never used tobacco/nicotine Alcohol intake: current Alcohol intake frequency: few times a month Substance/Drug Use: never Course Vital Signs: Vital signs: Vital Signs Temperature 96.4 F L 02/26/25 13:00 Pulse Rate 75 02/26/25 18:09 Respiratory Rate 20 H 02/26/25 17:45 Blood Pressure 135/83 02/26/25 18:09 Pulse Oximetry 91 02/26/25 18:09 Oxygen Delivery Me thod Nasal Cannula 02/26/25 16:30 Oxygen Flow Rate 2 02/26/25 16:30 MDM - Recheck/Abnormal Lab/Rx Medical Decision Making Patient is 65-year-old cardiac cripple with cardiomyopathy and EF of 15-20% AICD PPM, ischemic cardiomyopathy, with last stent in October, states compliance to medications and diet, unknown amount of weight gain, increasing shortness of breath, hallucinations. He had chest tightness associated. Saw patient with above midlevel agree with her history and physical patient has had dyspnea does have CHF exacerbation also has elevated dig level all acute kidney injury patient is being admitted to hospitalist at this time has been stable in the ER Lab Data 02/26/25 14:15 02/26/25 14:15 Radiology Impressions Chest X-Ray 02/26/25 13:06 IMPRESSION: 1. Small bilateral pleural effusions. Probably unchanged accounting for slight change in positioning. 2. Mild interstitial pulmonary edema. Possible CHF. Lung aeration is unchanged. 3. Cardiomegaly. Head CT 02/26/25 14:49 IMPRESSION: No acute intracranial abnormality. Laboratory Results WBC 5.49 10^3/uL (3.29-11.43) 02/26/25 14:15 RBC 5.93 10^6/uL (3.85-5.65) H 02/26/25 14:15 Hgb 15.80 g/dL (11.27-16.99) 02/26/25 14:15 Hct 50.5 % (37-53) 02/26/25 14:15 MCV 85.2 fl (82-101) 02/26/25 14:15 MCH 26.6 pg (27-33) L 02/26/25 14:15 MCHC 31.3 g/dL (30-55) 02/26/25 14:15 RDW 19.4 % (12.1-15.1) H 02/26/25 14:15 Plt Count 248 10^3/cmm (157-399) 02/26/25 14:15 MPV 11.0 fL (7.4-10.4) H 02/26/25 14:15 Neut % (Auto) 75.7 % 02/26/25 14:15 Lymph % (Auto) 12.8 % 02/26/25 14:15 [place] % (Auto) 8.7 % 02/26/25 14:15 Eos % (Auto) 0.7 % 02/26/25 14:15 Baso % (Auto) 0.5 % 02/26/25 14:15 Neut # (Auto) 4.15 10^3/uL (1.8-7.7) 02/26/25 14:15 Lymph # (Auto) 0.7 10^3/uL (0.8-4.8) L 02/26/25 14:15 [place] # (Auto) 0.5 10^3/uL (0.2-0.9) 02/26/25 14:15 Eos # (Auto) 0.0 10^3/uL (0.0-0.8) 02/26/25 14:15 Baso # (Auto) 0.0 10^3/uL (0.0-0.1) 02/26/25 14:15 Nucleated RBC % (auto) 0.4 % 02/26/25 14:15 Nucleated RBCs # 0.0 /100WBC 02/26/25 14:15 Sodium 134 mmol/L (136-145) L 02/26/25 14:15 Potassium 4.6 mmol/L (3.5-5.1) 02/26/25 14:15 Chloride 90 mmol/L (98-107) L 02/26/25 14:15 Carbon Dioxide 27 mmol/L (22-29) 02/26/25 14:15 Anion Gap 21.6 (5-19) H 02/26/25 14:15 BUN 48 mg/dL (8-23) H 02/26/25 14:15 Creatinine 2.7 mg/dL (0.7-1.2) H 02/26/25 14:15 GFR Calculation 23.9 mL/min (90-130) L 02/26/25 14:15 Glucose 87 mg/dL (65-115) 02/26/25 14:15 Calculated Osmolality 290 mOsm/kg (285-295) 02/26/25 14:15 Calcium 9.8 mg/dL (8.5-10.5) 02/26/25 14:15 Magnesium 2.7 mg/dL (1.7-2.3) H 02/26/25 14:15 Total Bilirubin 3.9 mg/dL (0.15-1.2) H 02/26/25 14:15 AST 338 U/L (0-40) H 02/26/25 14:15 ALT 247 U/L (0-41) H 02/26/25 14:15 Alkaline Phosphatase 238 U/L (40-130) H 02/26/25 14:15 Troponin T Baseline 40 ng/L (0-15) H 02/26/25 14:15 Troponin T 60 Minute 40.57 ng/L (0-15) H 02/26/25 15:07 Delta Troponin T 0.57 ABS# (0-10) 02/26/25 15:07 NT-Pro-B Natriuret Pep 00571 pg/mL (0-125) H 02/26/25 14:15 Total Protein 6.8 g/dL (6.6-8.7) 02/26/25 14:15 Albumin 4.2 g/dL (3.5-5.2) 02/26/25 14:15 Globulin 2.6 g/dL (1.3-4.6) 02/26/25 14:15 TSH 8.70 uIU/mL (0.27-4.20) H 02/26/25 14:15 Digoxin 2.0 ng/mL (0.6-1.2) H 02/26/25 14:15 Influenza A (PCR) Negative (Negative) 02/26/25 14:53 Influenza Type B (PCR) Negative (Negative) 02/26/25 14:53 RSV (PCR) Negative (Negative) 02/26/25 14:53 SARS-CoV-2 (PCR) Negative (Negative) 02/26/25 14:53 Discharge Plan Discharge Patient Disposition: Admitted As Inpatient Admit Provider: Ayesha Lancaster Clinical Impression: Acute systolic (congestive) heart failure, Acute hypoxic respiratory failure, KERON (acute kidney injury) Digoxin toxicity Qualifiers: Encounter type: initial encounter Injury intent: accidental or unintentional Qualified Code(s): T46.0X1A - Poisoning by cardiac-stimulant glycosides and drugs of similar action, accidental (unintentional), initial encounter Condition: Stable Discharge Diet: Low Salt Coding Level of Care Code ED Event Specialist for [place]
[2025-02-26 14:22] LABS: Hematocrit 50.5 % (37-53); Hemoglobin 15.80 g/dL (11.27-16.99); Mean Corpuscular HGB Conc 31.3 g/dL (30-55); Mean Corpuscular Hemoglobin 26.6 pg (27-33); Mean Corpuscular Volume 85.2 fl (82-101); Nucleated Red Blood Cells % 0.4 %; Platelet Count 248 10^3/cmm (157-399); Red Blood Count 5.93 10^6/uL (3.85-5.65); White Blood Count 5.49 10^3/uL (3.29-11.43)
[2025-02-26 14:39] LABS: Troponin(5th) Baseline 40 ng/L (0-15)
[2025-02-26] MEDS: FUROsemide 10 mg/mL SDV 4mL 40 MG IVP (14:43)
--- NOTE | 2025-02-26 14:49 | CTR_ITS ---
PROCEDURE INFORMATION: Exam: CT Head Without Contrast Exam date and time: 02/26/2025 2:56 PM Age: 65 years old Clinical indication: Altered mental status/memory loss; Confusion or disorientation; Additional info: Altered mentation TECHNIQUE: Imaging protocol: Computed tomography of the head without contrast. Radiation optimization: All CT scans at this facility use at least one of these dose optimization techniques: automated exposure control; mA and/or kV adjustment per patient size (includes targeted exams where dose is matched to clinical indication); or iterative reconstruction. COMPARISON: No relevant prior studies available. RADIATION DOSE METRICS: Total DLP (mGy-cm): 1106 FINDINGS: Brain: No acute infarct, hemorrhage, mass, or mass effect. Mild chronic white matter microvascular ischemic change. Cerebral ventricles: Normal ventricles. No appreciable extra-axial fluid. Paranasal sinuses: Mucosal thickening in the paranasal sinuses. Mastoid air cells: Clear. Orbital cavities: Orbits are unremarkable. Sella is unremarkable. Bones: Unremarkable. Soft tissues: Unremarkable. CT/CT head wo con* [id number] IMPRESSION: No acute intracranial abnormality.
[2025-02-26 14:54] LABS: Alanine Aminotransferase 247 U/L (0-41); Albumin Level 4.2 g/dL (3.5-5.2); Alkaline Phosphatase 238 U/L (40-130); Blood Urea Nitrogen 48 mg/dL (8-23); Calcium 9.8 mg/dL (8.5-10.5); Carbon Dioxide 27 mmol/L (22-29); Chloride 90 mmol/L (98-107); Globulin 2.6 g/dL (1.3-4.6); Glucose 87 mg/dL (65-115); Osmolality Calculated 290 mOsm/kg (285-295); Sodium 134 mmol/L (136-145); Total Protein 6.8 g/dL (6.6-8.7)
[2025-02-26 14:59] LABS: Anion Gap 21.6 (5-19); Aspartate Amino Transferase 338 U/L (0-40); Potassium 4.6 mmol/L (3.5-5.1)
[2025-02-26 15:04] LABS: Digoxin 2.0 ng/mL (0.6-1.2)
--- NOTE | 2025-02-26 15:12 | ECG_ITS ---
[facility] Date: 2025-02-26 Pat Name: Colin Moya Department: Room: Gender: Male Transfer Station Operator: : 1960 Requested By: Margie Rai Order Number: [id number] Reading MD: JB MANZANO Measurements Intervals [place] Rate: 70 P: 0 WI: 0 QRS: -56 QRSD: 160 T: 95 QT: 461 QTc: 499 Interpretive Statements ELECTRONIC VENTRICULAR PACEMAKER ABNORMAL RHYTHM ECG Compared to ECG 02/26/2025 14:01:15 No significant changes Electronically Signed On 03-01-2025 20:47:52 NURSE GENERAL DUTY by JB MANZANO [id number]
[2025-02-26 15:57] LABS: Respiratory Syncytial Virus Ce NEGATIVE (Negative); SARS-CoV-2 PCR NEGATIVE (Negative)
[2025-02-26 17:36] LABS: Magnesium 2.7 mg/dL (1.7-2.3); Thyroid Stimulating Hormone 8.70 uIU/mL (0.27-4.20)
[2025-02-26] MEDS: heparin 5,000 unit/mL INJ 1 mL 5000 UNIT SUBCUT (17:47)
--- NOTE | 2025-02-26 19:41 | PM.HP ---
Providers/Chief Complaint Admitting Physician: Ayesha Lancaster MD Primary Care Provider: Francis Elmore Chief Complaint: High BP Feet Swelling SOB N History of Present Illness As per the previous retrospective notes and the patient: Colin Moya is a pleasant 65-year-old gentleman with A-fib on amiodarone, Eliquis, ischemic cardiomyopathy, AICD PM, HTN, and EF of 15-20%, presents to the emergency room with worsening shortness of breath, early satiety, and nausea, lower extremity edema that gradually started over the course of 5-6 days. the patient endorsed tiredness, exertional SOB and lower leg edema. he later on started to feel nauseated and had mild vomiting containing only water. therefore he decided to come to the hospital. there was chest tightness as well but no dizziness, cold sweats or any presyncope or syncope. he reported having flu like symptoms but no fevers or chills. no sick contact or recent travel, he had took his flu shot. no abd pain or any diarrhea. He states compliance to his other medications Entresto, metoprolol, Jardiance, Plavix. 10/08/24 [facility] (last stent) 1. 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 IVUS ofhigh OM/ Ramus artery, no significant disease seen. 2. 1st Diagonal to 1st Diagonal was treated with a Balloon, and Balloon. 3. 1st Diagonal to 1st Diagonal was treated with a Drug Eluting Stent. Review of Systems General: Reports: 10 or more systems reviewed and unremarkable except in HPI and below Medications/Allergies Home Medications ?Medication ?Instructions ?Recorded ?Confirmed ?Last Taken ?Type duloxetine 60 mg capsule,delayed 60 mg PO DAILY 12/25/21 02/26/25 02/26/25 08:30 History release digoxin 125 mcg (0.125 mg) tablet 125 mcg PO DAILY #90 tabs 07/11/24 02/26/25 02/26/25 08:00 Rx clopidogrel 75 mg tablet 75 mg PO DAILY 90 days #90 tabs 08/19/24 02/26/25 01/05/25 09:00 Rx metoprolol tartrate 25 mg tablet 25 mg PO BID@0900,2100 #180 tabs 08/25/24 02/26/25 02/26/25 09:00 Rx evolocumab 140 mg/mL subcutaneous 140 mg SUBCUT Q14D 10/05/24 02/26/25 02/26/25 History pen injector (Reptiffany JeffSteveick) cetirizine 10 mg tablet (Zyrtec) 10 mg PO QPM 01/06/25 02/26/25 02/25/25 19:00 History apixaban 5 mg tablet (Eliquis) 5 mg PO BID #180 tabs 01/10/25 02/26/25 02/26/25 08:00 Rx empagliflozin 10 mg tablet 10 mg PO DAILY #90 tabs 01/25/25 02/26/25 02/26/25 09:00 Rx (Jardiance) bumetanide 1 mg tablet See Rx Instructions .Route 02/07/25 02/26/25 02/26/25 08:00 Rx .COMPLEX #90 tabs potassium chloride 10 mEq See Rx Instructions .Route 02/14/25 02/26/25 02/26/25 09:00 Rx tablet,extended release .COMPLEX #90 tabs amiodarone 200 mg tablet (Pacerone) 200 mg PO DAILY #90 tabs 02/15/25 02/26/25 02/26/25 08:00 Rx docusate sodium 100 mg capsule 100 mg PO BID 02/26/25 02/26/25 Unknown History sacubitril 24 mg-valsartan 26 mg 0.5 tab PO BID 02/26/25 02/26/25 02/26/25 09:00 History tablet Allergies Allergy/AdvReac Type Severity Reaction Status Date / Time simvastatin Allergy Severe N/V Verified 02/07/25 08:24 PFSH Acute PFSH: Medical History (Updated 02/26/25 @ 15:39 by DOUG Wiggins) Pulmonary hypertension Atrial fibrillation with rapid ventricular response Acute exacerbation of CHF (congestive heart failure) Obstructive sleep apnea SOBOE (shortness of breath on exertion) Postherpetic neuralgia Tobacco use Exercise intolerance Allergic rhinitis Shingles Hypertension Paroxysmal atrial fibrillation Labile blood pressure Dyspnea Hyperlipidemia GIA on CPAP Dizziness Chest discomfort Surgical History No history of previous surgery Family History Father CAD (coronary artery disease) Stroke, Onset Age: 35 Grandmother Cancer Mother Stroke Sister Stroke Denies family history of Diabetes Clotting disorder Dementia Chronic kidney disease (CKD) Suicide Anesthesia complication Bleeding disorder Lung disease Social History Smoking and tobacco/nicotine status: never used tobacco/nicotine Alcohol intake: current Alcohol intake frequency: few times a month Substance/Drug Use: never Vitals/I&O/Wt Last Vital Signs Temp 96.4 F L 02/26/25 13:00 Pulse 75 02/26/25 18:09 Resp 20 H 02/26/25 17:45 BP 135/83 02/26/25 18:09 Pulse Ox 91 02/26/25 18:09 O2 Del Method Nasal Cannula 02/26/25 16:30 O2 Flow Rate 2 02/26/25 16:30 02/26/25 02/26/25 02/26/25 06:59 14:59 22:59 Intake Total 50 / 50 Balance 50 / 50 Weight last 48 hrs Weight 97.069 kg Physical Exam Narrative: General: Alert and oriented, lying comfortably without any distress, speaking in full sentences. HEENT: Normocephalic, atraumatic, grossly unremarkable exam Cardio: normal rate rhythm, normal S1-S2 without any murmurs, rubs, or gallops and JVD normal Respiratory: normal vascular breathing on auscultation with bibasal fine crepts without any wheezes. GI: Abdomen soft, nontender, nondistended, normoactive bowel sounds present all 4 quadrants, Neuro: intact cranial nerves motor and sensory and cerebellar/coordination function without any focal neurological deficit Behavior: Appropriate and cooperative Extremities: Adequate palpable pulses, bilateral trace edema, on folleys catheter, having bilateral knees redness and some excoriations which he relayed to the hot shower Urinary Catheter Management: Freeman: Cath Placed During This Visit: yes Urinary Catheter Date of Insertion: 02/26/25 Urinary Catheter Time of Insertion: 17:43 Data 02/26/25 14:15 02/26/25 14:15 A&P Assessment and plan 1. Acute hypoxic respiratory failure: Acute hypoxemic respiratory failure secondary to acute on chronic congestive systolic heart dysfunction Recent echo showing EF around 15 to 20% the patient is on DIESEL MECHANIC FARM-D Cautious diuresis with Lasix 60 twice daily, and cont bumetanide as per home dose resume home medications after reconciliation, plavix, jardiance, metoprolol and enteresto. Hold digoxin Intake output monitoring Oxygen therapy as per protocol Daily weight base analysis Telemetry monitoring Cardiology consulted for further GDMT 2. Digoxin toxicity: Patient received DigiFab in the ER Digoxin levels around 2 Cardiology consulted Electrolyte monitoring and correction accordingly especially potassium Continue to monitor for any visual disturbances abdominal pain nausea or vomiting and other signs or symptoms of digoxin toxicity. 3. Acute systolic (congestive) heart failure: Acute on chronic congestive systolic heart dysfunction Lasix IV twice daily Resume home medications, BB, plavix, jardiance and entresto 4. Cardiac resynchronization therapy defibrillator (DIESEL MECHANIC FARM-D) in place: Currently stable, continue to monitor Telemetry monitoring 5. Transaminitis: High likelihood of congestive hepatomegaly IV Lasix 60 mg twice daily Continue monitor liver functions Ultrasound liver 6. KERON (acute kidney injury): High likelihood of congestive nephropathy Continue diuresis and monitoring of renal functions Intake output monitoring 7. Benign essential HTN: Continue home medication, blood pressure at the optimum range Continue to monitor 8. Paroxysmal atrial fibrillation: Continue amiodarone 200 mg daily Metoprolol 25 twice daily Apixaban 5 mg twice daily for anticoagulation Telemetry monitoring 9. Hyperlipidemia: Patient liver enzymes are increased and in the previous visit he statins were held since his liver enzymes were raised Continue to hold and to resume after liver functions normalize PDMP PDMP Reviewed: Not Reviewed Attestations Medical Necessity Statement*: Patient will stay more than 2 midnights requiring GDMT for acute on chronic congestive heart failure due to systolic dysfunction, telemetry monitoring under cardiac stepdown unit Time Spent in Patient Care: 16 - 35 minutes (>than 50% of time spent in counselling and/or direct pt care on unit). Other Attestations: Patient condition has been discussed at length with the patient/family, I have independently reviewed the chart labs imaging/diagnostics/EKG. the goals of care and code status with the patient/family/NOK/legal public utilities sales representative, and documented accordingly. I have reconciled the medications after confirmation/comorbidities/current clinical condition. The management has been done according to the current clinical condition with respect to patient goals of care and based on recommendations/guidelines. The patient/family has been informed about the current condition and further plan of care. Agreed with the plan of care and understood without any language barrier. Every effort was made to ensure accuracy of sort worker. Any obvious errors or omissions should be clarified with the author of the document. Coding Level of Care Code 00614 Diagnoses Acute hypoxic respiratory failure J96.01 Digoxin toxicity T46.0X1A Acute systolic (congestive) heart failure I50.21 Cardiac resynchronization therapy defibrillator (DIESEL MECHANIC FARM-D) in place Z95.810 Transaminitis R74.01 KERON (acute kidney injury) N17.9 Benign essential HTN I10 Paroxysmal atrial fibrillation I48.0 Hyperlipidemia E78.5
[2025-02-26] MEDS: FUROsemide 10 mg/mL SDV 10mL 60 MG IVP (20:49)
--- NOTE | 2025-02-26 20:49 | ECG_ITS ---
[facility] Date: 2025-[facility]26 Pat Name: Colin Moya Department: Room: 111 Gender: Male Dispatcher Service Chief: : 1960 Requested By: Margie Rai Order Number: [id number] Reading MD: JB MANZANO Measurements Intervals [place] Rate: 76 P: 0 DE: 0 QRS: 138 QRSD: 155 T: 268 QT: 449 QTc: 505 Interpretive Statements ELECTRONIC VENTRICULAR PACEMAKER ABNORMAL RHYTHM ECG Compared to ECG 02/26/2025 15:27:38 No significant changes Electronically Signed On 03-01-2025 20:45:24 PHOTOENGRAVING SUPERVISOR by JB MANZANO [id number]
[2025-02-26 20:50] LABS: Troponin 5 6HR 34.46 ng/L (0-15)
[2025-02-26 20:51] LABS: Troponin 5 6HR Delta -5.54 ng/L (0-12)
[2025-02-27] VITALS (8 sets, daily range): BP systolic 106–132; BP diastolic 68–93; PULSE 64–79; RESP 11–20; TEMP 36.4–36.8; O2SAT 92–98
[2025-02-27] MEDS: FUROsemide 10 mg/mL SDV 10mL 60 MG IVP (08:51)
--- NOTE | 2025-02-27 09:56 | PC.CHAP ---
Pastoral Care Encounter/Spiritual Assessment Type of Contact [] Declined fruit raiser visit [] Patient/Family/Request visit [] Outpatient visit [] Follow-up visit [] Physician referral [] Code/Alert [] Routine visit [] Staff referral [] Actively dying [] Patient sleeping [] Family support [] [] Out of room [] Palliative care [] [x] Receiving care in room [] Pre-surgical visit [] Trauma [] Long length of stay [] ICU visit [] Other: Relational/Emotional Strength [] Patient feels connected with others/family/visitors/staff [] Distress [] Loneliness/isolation [] Abandonment Spirituality of Patient [] Person of Mayuri [] Attends Christian of their Mayuri [] Believes in Prayer [] Reads Bible or Bahai materials [] There are Spiritual issues to be addressed Chief Of Production Interventions [] Prayer [] Active listening [] Non-anxious presence [] Spiritual/emotional support [] Crisis/trauma care [] Spiritual counseling [] Bereavement support [] Provided bereavement packet [] Provided Bible/devotional materials [] Provided toy/stuffed animal, coloring book to patient or family member [] Provided Communion [] Anointing/[place] [] Salvation [] Completed spiritual assessment [] Other: Impact on Illness or Injury [] Angry [] Fearful [] Anxious [] Often cries [] Exhaustion [] Unable to work [] Unable to attend taoism [] Unable to walk/stand [] Unable to read [] Unable to drive [] Unable to eat/drink [] Unable to sleep [] Unable to be with family [] Patient intubated [] Other: Summary Time spent with patient
[2025-02-27 10:47] LABS: Hematocrit 49.5 % (37-53); Hemoglobin 15.30 g/dL (11.27-16.99); Mean Corpuscular HGB Conc 30.9 g/dL (30-55); Mean Corpuscular Hemoglobin 26.9 pg (27-33); Mean Corpuscular Volume 87.0 fl (82-101); Nucleated Red Blood Cells % 0 %; Platelet Count 253 10^3/cmm (157-399); Red Blood Count 5.69 10^6/uL (3.85-5.65); White Blood Count 5.64 10^3/uL (3.29-11.43)
[2025-02-27 11:15] LABS: Alanine Aminotransferase 243 U/L (0-41); Albumin Level 3.7 g/dL (3.5-5.2); Alkaline Phosphatase 202 U/L (40-130); Anion Gap 21.9 (5-19); Aspartate Amino Transferase 227 U/L (0-40); Blood Urea Nitrogen 56 mg/dL (8-23); Calcium 9.1 mg/dL (8.5-10.5); Carbon Dioxide 26 mmol/L (22-29); Chloride 94 mmol/L (98-107); Globulin 2.9 g/dL (1.3-4.6); Glucose 127 mg/dL (65-115); Osmolality Calculated 303 mOsm/kg (285-295); Potassium 3.9 mmol/L (3.5-5.1); Sodium 138 mmol/L (136-145); Total Protein 6.6 g/dL (6.6-8.7)
--- NOTE | 2025-02-27 11:42 | P.CONIM_ITS ---
<Statement entered by Edinson Resendiz M.D - 03/05/25 11:01> Patient was cared for in conjunction with an advanced practice practitioner.? I reviewed the chart and all pertinent data including imaging, telemetry, and laboratory results.? I discussed the patient in detail with the advanced practice practitioner.? Please see? their documentation for consult note, testing results and agreed upon plan of care for the patient. Providers/Reason For Consult 2 Consulting Physician/Specialty*: Dr. Resendiz Reason for Consult*: CHF exacerbation Requesting Physician: Dr. Lancaster Attending Physician: Ayesha Lancaster MD Primary Care Provider: Francis Elmore History of Present Illness History of Present Illness Colin Moya is a 65 year old male status post recent MINISTER D device implantation. He has a history of CAD, afib on chronic anticoagulation with Eliquis, GIA, pulmonary hypertension, hypertension, systolic congestive heart failure, EF of 15-20%. He is been frequently hospitalized for volume overload. He came into the ER on 2 weeks ago with worsening exertional dyspnea and weight gain. On his last admission he ended up with acute renal insufficiency secondary to diuresis. He was given 40 mg IV lasix and discharged home. Last left heart cath was on 10/08/2024 showing severe ostial diagonal stenosis with 1 stent. IVUS of the ramus artery found no significant disease. First diagonal first diagonal was treated with a balloon and stent. Vitals at this time are stable. Patient was on digoxin at home. Dig level checked and was high at 2. Digifab was given IV. Patient recieved lasix 40 mg IVP one time. Patient is now on lasix 60 mg IV q12. Chest x-ray showed small bilateral pleural effusions with mild pulmonary edema and cardiomegaly. Probnp 42,073. -540 since lasix administered. Creatinine is elevated at baseline around 1.8-2. Currently it has increased to 2.9, BUN increased to 56. Lungs are clear on exam with some peripheral edema. Liver function elevated but trending down. Troponins flat and trending down. EKG witho no acute ST or T wave abnormalities. Patient is Vpaced. Review of Systems 2 Narrative: Consitutional: denies fever, chills, body aches Card: Denies chest pain, palpitations, irregular heart rhythm, reports edema, denies syncope, reports shortness of breath on exertion, denies orthopnea Resp: reports Shortnes of breath on exertion relieved with rest GI: denies abdominal pain, denies nausea or vomiting, denies blood in stool Musc: Denies extremity pain, denies limited range of motion or recent injury Skin: Denies rash, lesions, or wounds, denies changes to skin color Neuro: Denies h/a, s/s of stroke Dash: Denies easy bruiding/bleeding Medications/Allergies Home Medications ?Medication ?Instructions ?Recorded ?Confirmed ?Last Taken ?Type duloxetine 60 mg capsule,delayed 60 mg PO DAILY 02/26/25 02/26/25 08:30 History release digoxin 125 mcg (0.125 mg) tablet 125 mcg PO DAILY #90 tabs 07/11/24 02/26/25 02/26/25 08:00 Rx clopidogrel 75 mg tablet 75 mg PO DAILY 90 days #90 t abs 08/19/24 02/26/25 01/05/25 09:00 Rx metoprolol tartrate 25 mg tablet 25 mg PO BID@0900,210 0 #180 tabs 08/25/24 02/26/25 02/26/25 09:00 Rx evolocumab 140 mg/mL subcutaneous 140 mg SUBCUT Q14D 0 10/05/24 02/26/25 02/26/25 History pen injector (Repatha SureClick) cetirizine 10 mg tablet (Zyrtec) 10 mg PO QPM 01/06/25 02/26/25 02/25/25 19:00 History apixaban 5 mg tablet (Eliquis) 5 mg PO BID #180 tabs 1 03/12/24 02/26/25 02/26/25 08:00 Rx empagliflozin 10 mg tablet 10 mg PO DAILY #90 tabs 02/26/25 02/26/25 09:00 Rx (Jardiance) bumetanide 1 mg tablet See Rx Instructions .Route 1 04/10/24 02/26/25 02/26/25 08:00 Rx .COMPLEX #90 tabs potassium chloride 10 mEq See Rx Instructions .Route 1 04/17/24 02/26/25 02/26/25 09:00 Rx tablet,extended release .COMPLEX #90 tabs amiodarone 200 mg tablet (Pacerone) 200 mg PO DAILY #9 0 tabs 02/15/25 02/26/25 02/26/25 08:00 Rx docusate sodium 100 mg capsule 100 mg PO BID 02/26/25 02/26/25 Unknown History sacubitril 24 mg-valsartan 26 mg 0.5 tab PO BID 02/26/25 02/26/25 09:00 History tablet Allergies Allergy/AdvReac Type Severity Reaction Status Date / Time simvastatin Allergy Severe N/V Verified 02/07/25 08:24 Current Medications Generic Name Dose Route Start Last Admin Trade Name Freq PRN Reason Stop Dose Admin Amiodarone HCl 200 mg 02/27/25 05:00 02/27/25 05:10 Amiodarone 200 Mg Tablet PO 200 mg DAILY RASHAAD Administration Apixaban 5 mg 02/26/25 19:27 02/27/25 05:10 Apixaban 5 Mg Tablet PO 5 mg BID RASHAAD Administration Cetirizine HCl 10 mg 02/26/25 19:27 02/26/25 20:40 Cetirizine 10 Mg Tablet PO 10 mg QPM RASHAAD Administration Clopidogrel Bisulfate 75 mg 02/27/25 05:00 02/27/25 05:10 Clopidogrel 75 Mg Tablet PO 75 mg DAILY RASHAAD Administration Duloxetine HCl 60 mg 02/27/25 05:00 02/27/25 05:10 Duloxetine 60 Mg Capsule PO 60 mg DAILY RASHAAD Administration Furosemide 60 mg 02/26/25 19:45 02/27/25 08:51 Furosemide 10 Mg/Ml Sdv 10ml IVP 60 mg Q12H RASHAAD Administration Metoprolol Tartrate 25 mg 02/26/25 21:00 02/27/25 08:51 Metoprolol Tartrate 25 Mg Tablet PO 25 mg BID@0900,2100 RASHAAD Administration Pantoprazole Sodium 40 mg 02/27/25 05:00 02/27/25 05:[address] 40 Mg Tablet PO 40 mg DAILY RASHAAD Administration Sacubitril/Valsartan 0.5 each 02/26/25 19:27 02/27/25 05:10 Sacubitril/Valsartan 24-26 Mg Tablet PO 0.5 each BID RASHAAD Administration Senna 17.2 mg 02/26/25 21:00 02/26/25 20:40 Sennosides 8.6 Mg Tablet PO 17.2 mg BEDTIME RASHAAD Administration PFSH Acute 2 PFSH: Medical History (Updated 02/26/25 @ 15:39 by DOUG Wiggins) Pulmonary hypertension Atrial fibrillation with rapid ventricular response Acute exacerbation of CHF (congestive heart failure) Obstructive sleep apnea SOBOE (shortness of breath on exertion) Postherpetic neuralgia Tobacco use Exercise intolerance Allergic rhinitis Shingles Hypertension Paroxysmal atrial fibrillation Labile blood pressure Dyspnea Hyperlipidemia GIA on CPAP Dizziness Chest discomfort Surgical History No history of previous surgery Family History Father CAD (coronary artery disease) Stroke, Onset Age: 35 Grandmother Cancer Mother Stroke Sister Stroke Denies family history of Diabetes Clotting disorder Dementia Chronic kidney disease (CKD) Suicide Anesthesia complication Bleeding disorder Lung disease Social History Smoking and tobacco/nicotine status: never used tobacco/nicotine Alcohol intake: current Alcohol intake frequency: few times a month Substance/Drug Use: never Vitals/I&O/Wt Last Vital Signs Temp 98.2 F 02/27/25 08:00 Pulse 68 02/27/25 08:00 Resp 11 L 02/27/25 08:00 BP 131/86 02/27/25 08:00 Pulse Ox 97 02/27/25 08:00 O2 Del Method CPAP 02/27/25 04:00 O2 Flow Rate 2 02/26/25 16:30 FiO2 21 02/26/25 23:39 02/26/25 02/27/25 02/27/25 22:59 06:59 14:59 Intake Total 50 / 50 360 / 360 Output Total 950 / 950 Balance 50 / 50 -950 / -900 360 / 360 Weight last 48 hrs Weight 221 lb 12.8 oz Weight 222 lb 4.8 oz Weight 214 lb Physical Exam 2 Narrative: General: No apparent distress HENMT: normoceophalic Muskuloskeletal: Full ROM Respiratory: Normal respiratory effort, clear to auscultation bilaterally throughout all lung cotton, no use of accessory muscles Cardio: No JVD, irregularly irregular rate and rhythm, S1 S2 normal, no murmurs, peripheral pulses 2+ radial palpated bilaterally Extremities: Full ROM, normal, normal capillary refill, no cyanosis, trace edema bilateral lower extremities Neuro: Alert and oriented x4 Psych: Affect normal Skin: Left upper chest with incision site covered with Steri-Strips from MINISTER-D device placement clean dry intact no swelling no signs or symptoms of infection Urinary Catheter Management: Freeman: Cath Placed During This Visit: yes Reason for Continuing Indwelling Catheter: Accurate Measurement of Urinary Output in Critically Ill Patients Urinary Catheter Date of Insertion: 02/26/25 Urinary Catheter Time of Insertion: 17:43 Data 02/27/25 10:40 02/27/25 10:40 A&P Assessment and plan 1. Acute exacerbation of CHF (congestive heart failure): 2. Benign essential HTN: 3. Systolic CHF with reduced left ventricular function, NYHA class 2: 4. Paroxysmal atrial fibrillation: 5. CAD (coronary artery disease): 6. Cardiac resynchronization therapy defibrillator (MINISTER-D) in place: Plan: For acute systolic CHF exacerbation, creatinine has increased to 2.9 from 2.7. May consider holding evening Lasix dose as patient appears euvolemic with increased creat. Strict I&O. Monitor Renal function. Continue Metoprolol, Plavix, Amiodarone, and Eliquis. Hold Entresto for KERON. Thank you, Dr. Lancaster, for allowing us to care for this very pleasant 65 year old gentleman. PDMP PDMP Reviewed: Not Reviewed Coding Level of Care Code Acute Code for Chg Fwd Diagnoses Acute exacerbation of CHF (congestive heart failure) I50.9 Benign essential HTN I10 Systolic CHF with reduced left ventricular function, NYHA class 2 I50.20 Paroxysmal atrial fibrillation I48.0 CAD (coronary artery disease) I25.10 Cardiac resynchronization therapy defibrillator (MINISTER-D) in place Z95.810
--- NOTE | 2025-02-27 14:57 | US_ITS ---
WS: [id number] RENAL ULTRASOUND HISTORY: KERON COMPARISON: None available. TECHNIQUE: 2-D and color Doppler imaging of the kidney submitted. Right kidney: 11.6 cm x 5.6 cm x 5.4 cm. Cortex: 1.8 cm Normal echogenicity with no hydronephrosis or mass. Left kidney: 11.5 cm x 5.2 cm x 5.5 cm. Cortex: 1.4 cm Normal echogenicity with no hydronephrosis or mass. Aorta: Not imaged. Urinary Bladder: Nondistended urinary bladder. Freeman catheter is in place. Small LEFT pleural effusion. US/US renal BI* [id number] IMPRESSION: Normal renal ultrasound.
--- NOTE | 2025-02-27 17:34 | P.PN_ITS ---
Subjective 2 Subjective: the patiente was seen in the morning and was much better. Off O2 and saturating above 92%. no resp distress, LLE improving however creat is rising with increase in his serum osm. held diuretics will low dose hydration of 30ml/hr. to monitor Vitals/I&O/Wt Last Vital Signs Temp 97.9 F 02/27/25 16:00 Pulse 66 02/27/25 16:00 Resp 20 H 02/27/25 16:00 BP 106/86 02/27/25 16:00 Pulse Ox 98 02/27/25 16:00 O2 Del Method CPAP 02/27/25 04:00 O2 Flow Rate 2 02/26/25 16:30 FiO2 21 02/26/25 23:39 02/27/25 02/27/25 02/27/25 06:59 14:59 22:59 Intake Total 840 / 840 Output Total 950 / 950 1450 / 1450 Balance -950 / -900 840 / 840 -1450 / -610 Weight last 48 hrs Weight 100.607 kg Weight 100.834 kg Weight 97.069 kg Physical Exam 2 Narrative: General: Alert and oriented, lying comfortably without any distress, speaking in full sentences. HEENT: Normocephalic, atraumatic, grossly unremarkable exam Cardio: normal rate rhythm, normal S1-S2 without any murmurs, rubs, or gallops and JVD normal Respiratory: normal vascular breathing on auscultation with bibasal fine crepts without any wheezes. GI: Abdomen soft, nontender, nondistended, normoactive bowel sounds present all 4 quadrants, Neuro: intact cranial nerves motor and sensory and cerebellar/coordination function without any focal neurological deficit Behavior: Appropriate and cooperative Extremities: Adequate palpable pulses, bilateral trace edema better than yesterday, on folleys catheter, having bilateral knees redness and some excoriations which he relayed to the hot shower Urinary Catheter Management: Freeman: Cath Placed During This Visit: yes Reason for Continuing Indwelling Catheter: Accurate Measurement of Urinary Output in Critically Ill Patients Urinary Catheter Date of Insertion: 02/26/25 Urinary Catheter Time of Insertion: 17:43 Data 02/27/25 10:40 02/27/25 10:40 A&P Assessment and plan 1. Acute hypoxic respiratory failure: Acute hypoxemic respiratory failure secondary to acute on chronic congestive systolic heart dysfunction Recent echo showing EF around 15 to 20% the patient is on MOBILE ENGINEER-D currently better and on room air, hold diuretics meanwhile since his renal functions are worsening, re-assess tomorrow resume home medications after reconciliation, plavix, jardiance, metoprolol and hold entresto in the light of KERON Intake output monitoring Oxygen therapy as per protocol Daily weight base analysis Telemetry monitoring Cardiology consulted for further GDMT 2. Digoxin toxicity: Patient received DigiFab in the ER Digoxin levels around 2 Cardiology consulted Electrolyte monitoring and correction accordingly especially potassium Continue to monitor for any visual disturbances abdominal pain nausea or vomiting and other signs or symptoms of digoxin toxicity. 3. Acute systolic (congestive) heart failure: Acute on chronic congestive systolic heart dysfunction better today, hold lasix and entresto due to KERON continue BB, plavix, jardiance 4. Cardiac resynchronization therapy defibrillator (MOBILE ENGINEER-D) in place: Currently stable, continue to monitor Telemetry monitoring 5. Transaminitis: High likelihood of congestive hepatomegaly, trending down hold hepatotoxic medications including any statins Continue monitor liver functions Ultrasound liver showed mild hepatomegaly and cholelithiasis 6. KERON (acute kidney injury): High likelihood of congestive nephropathy hold diuresis at the moment gentle hydration for 24 hours with 30ml/hr fluids and monitor 7. Benign essential HTN: blood pressure at the optimum range Continue to monitor 8. Paroxysmal atrial fibrillation: Continue amiodarone 200 mg daily Metoprolol 25 twice daily Apixaban 5 mg twice daily for anticoagulation Telemetry monitoring 9. Mixed hyperlipidemia: Patient liver enzymes are increased and in the previous visit he statins were held since his liver enzymes were raised Continue to hold and to resume after liver functions normalize PDMP PDMP Reviewed: Not Reviewed Attestations 2 Medical Necessity Statement*: atient will stay more than 2 midnights requiring GDMT for acute on chronic congestive heart failure due to systolic dysfunction,KERON, telemetry monitoring under cardiac stepdown unit Time Spent in Patient Care: 16 - 35 minutes (>than 50% of time sp ent in counselling and/or direct pt care on unit) . Other Attestations: Patient condition has been discussed at length with the patient/family, I have independently reviewed the chart labs imaging/diagnostics/EKG. the goals of care and code status with the patient/family/NOK/legal technical sales representative, and documented accordingly. I have reconciled the medications after confirmation/comorbidities/current clinical condition. The management has been done according to the current clinical condition with respect to patient goals of care and based on recommendations/guidelines. The patient/family has been informed about the current condition and further plan of care. Agreed with the plan of care and understood without any language barrier. Every effort was made to ensure accuracy of manager of procurement. Any obvious errors or omissions should be clarified with the author of the document. Coding Level of Care Code 78978 Diagnoses Acute hypoxic respiratory failure J96.01 Digoxin toxicity T46.0X1A Encounter type: initial encounter Injury intent: accidental or unintentional Acute systolic (congestive) heart failure I50.21 Cardiac resynchronization therapy defibrillator (MOBILE ENGINEER-D) in place Z95.810 Transaminitis R74.01 KERON (acute kidney injury) N17.9 Benign essential HTN I10 Paroxysmal atrial fibrillation I48.0 Mixed hyperlipidemia E78.2 Hyperlipidemia type: mixed hyperlipidemia
--- NOTE | 2025-02-27 19:49 | US_ITS ---
WS: [id number] RIGHT UPPER QUADRANT ULTRASOUND HISTORY: Transaminitis COMPARISON: 01/06/2025 Liver: 18.1 cm in length. Mildly enlarged liver. No intrahepatic duct dilatation or mass. Portal Vein: Normal hepatopetal flow with monophasic waveform. Gallbladder: Normally distended gallbladder with a large stone at the gallbladder neck. No pericholecystic fluid. No gallbladder wall thickening. CBD: 0.3 cm Pancreas: Not visualized. Right kidney: 9.2 cm in length. Normal size and echogenicity. No hydronephrosis or mass. Aorta and IVC: Limited. No ascites. Small RIGHT pleural effusion. US/US liver [id number] IMPRESSION: 1. Cholelithiasis without evidence for acute cholecystitis. 2. Mild hepatomegaly. 3. No ascites. 4. Very small RIGHT pleural effusion.
[2025-02-27] MEDS: morphine 4 mg/mL SDV 1 mL 2 MG IVP (23:59)
[2025-02-28] VITALS (7 sets, daily range): BP systolic 115–133; BP diastolic 83–104; PULSE 62–77; RESP 12–20; TEMP 36.6–36.8; O2SAT 93–97
[2025-02-28 04:36] LABS: Hematocrit 43.3 % (37-53); Hemoglobin 13.30 g/dL (11.27-16.99); Mean Corpuscular HGB Conc 30.7 g/dL (30-55); Mean Corpuscular Hemoglobin 26.9 pg (27-33); Mean Corpuscular Volume 87.7 fl (82-101); Nucleated Red Blood Cells % 0.6 %; Platelet Count 192 10^3/cmm (157-399); Red Blood Count 4.94 10^6/uL (3.85-5.65); White Blood Count 5.01 10^3/uL (3.29-11.43)
[2025-02-28 04:44] LABS: Alanine Aminotransferase 153 U/L (0-41); Albumin Level 2.9 g/dL (3.5-5.2); Alkaline Phosphatase 160 U/L (40-130); Blood Urea Nitrogen 51 mg/dL (8-23); Calcium 8.6 mg/dL (8.5-10.5); Carbon Dioxide 25 mmol/L (22-29); Chloride 97 mmol/L (98-107); Globulin 2.4 g/dL (1.3-4.6); Glucose 106 mg/dL (65-115); Osmolality Calculated 296 mOsm/kg (285-295); Sodium 136 mmol/L (136-145); Total Protein 5.3 g/dL (6.6-8.7)
[2025-02-28 04:47] LABS: Anion Gap 17.5 (5-19); Aspartate Amino Transferase 107 U/L (0-40); Potassium 3.5 mmol/L (3.5-5.1)
[2025-02-28 04:55] LABS: Magnesium 2.5 mg/dL (1.7-2.3)
--- NOTE | 2025-02-28 12:03 | P.PN_ITS ---
<Statement entered by Edinson Resendiz M.D - 03/05/25 11:40> Patient was cared for in conjunction with an advanced practice practitioner.? I reviewed the chart and all pertinent data including imaging, telemetry, and laboratory results.? I discussed the patient in detail with the advanced practice practitioner.? Please see? their documentation for progress note, testing results and agreed upon plan of care for the patient. Subjective 2 Subjective: Patient doing well today. He is laying in bed without orthopnea. No oxygen on patient at the time of my exam. Vitals/I&O/Wt Last Vital Signs Temp 98.2 F 02/28/25 08:00 Pulse 70 02/28/25 08:00 Resp 19 H 02/28/25 08:00 BP 132/94 02/28/25 08:00 Pulse Ox 97 02/28/25 08:00 O2 Del Method Room Air 02/28/25 04:00 O2 Flow Rate 2 02/26/25 16:30 FiO2 21 02/28/25 07:34 02/27/25 02/28/25 02/28/25 22:59 06:59 14:59 Intake Total 720 / 1560 480 / 2040 360 / 360 Output Total 1900 / 1900 300 / 2200 Balance -1180 / -340 180 / -160 360 / 360 Weight last 48 hrs Weight 221 lb 6.4 oz Weight 221 lb 12.8 oz Weight 222 lb 4.8 oz Weight 214 lb Physical Exam 2 Narrative: General: No apparent distress HENMT: normoceophalic Muskuloskeletal: Full ROM Respiratory: Normal respiratory effort, clear to auscultation bilaterally throughout all lung cotton, no use of accessory muscles Cardio: No JVD, irregularly irregular rate and rhythm, S1 S2 normal, no murmurs, peripheral pulses 2+ radial palpated bilaterally Extremities: Full ROM, normal, normal capillary refill, no cyanosis, trace edema bilateral lower extremities Neuro: Alert and oriented x4 Psych: Affect normal Skin: Left upper chest with incision site covered with Steri-Strips from SUPERVISOR DOPING-D device placement clean dry intact no swelling no signs or symptoms of infection Urinary Catheter Management: Freeman: Cath Placed During This Visit: yes Reason for Continuing Indwelling Catheter: Accurate Measurement of Urinary Output in Critically Ill Patients Urinary Catheter Date of Insertion: 02/26/25 Urinary Catheter Time of Insertion: 17:43 Data 02/28/25 03:51 02/28/25 03:51 A&P Assessment and plan 1. Acute exacerbation of CHF (congestive heart failure): 2. Benign essential HTN: 3. Systolic CHF with reduced left ventricular function, NYHA class 2: 4. Paroxysmal atrial fibrillation: 5. CAD (coronary artery disease): 6. Cardiac resynchronization therapy defibrillator (SUPERVISOR DOPING-D) in place: Plan: For acute systolic CHF exacerbation, creatinine has improved significantly from 2.9 to 2.2 today. Recommend holding diuretics for 1 more day. Patient appreas euvolemic at this time. Laying flat in bed without discomfort. Strict I&O. Monitor Renal function. Continue Metoprolol, Plavix, Amiodarone, and Eliquis. Hold Entresto for KERON. PDMP PDMP Reviewed: Not Reviewed Attestations 2 Medical Necessity Statement*: Deferred to primay Coding Level of Care Code Acute Code for g Fwd Diagnoses Acute exacerbation of CHF (congestive heart failure) I50.9 Benign essential HTN I10 Systolic CHF with reduced left ventricular function, NYHA class 2 I50.20 Paroxysmal atrial fibrillation I48.0 CAD (coronary artery disease) I25.10 Cardiac resynchronization therapy defibrillator (SUPERVISOR DOPING-D) in place Z95.810
--- NOTE | 2025-02-28 15:25 | PM.PN ---
Subjective Subjective: Patient doing well today. He is laying in bed without orthopnea. able to tolerate food without any nause or vomiting and improving exertional dyspnea, No oxygen on patient at the time of my exam. Vitals/I&O/Wt Last Vital Signs Temp 98.2 F 02/28/25 08:00 Pulse 70 02/28/25 08:00 Resp 19 H 02/28/25 08:00 BP 132/94 02/28/25 08:00 Pulse Ox 97 02/28/25 08:00 O2 Del Method Room Air 02/28/25 04:00 O2 Flow Rate 2 02/26/25 16:30 FiO2 21 02/28/25 07:34 02/28/25 02/28/25 02/28/25 06:59 14:59 22:59 Intake Total 480 / 2040 480 / 480 Output Total 300 / 2200 Balance 180 / -160 480 / 480 Weight last 48 hrs Weight 100.425 kg Weight 100.607 kg Weight 100.834 kg Physical Exam Narrative: General: Alert and oriented, lying comfortably without any distress, speaking in full sentences. HEENT: Normocephalic, atraumatic, grossly unremarkable exam Cardio: normal rate rhythm, normal S1-S2 without any murmurs, rubs, or gallops and JVD normal Respiratory: normal vascular breathing on auscultation with bibasal fine crepts without any wheezes. GI: Abdomen soft, nontender, nondistended, normoactive bowel sounds present all 4 quadrants, Neuro: intact cranial nerves motor and sensory and cerebellar/coordination function without any focal neurological deficit Behavior: Appropriate and cooperative Extremities: Adequate palpable pulses, bilateral trace edema better than yesterday, on folleys catheter, having bilateral knees redness and some excoriations which he relayed to the hot shower Urinary Catheter Management: Freeman: Cath Placed During This Visit: yes Reason for Continuing Indwelling Catheter: Accurate Measurement of Urinary Output in Critically Ill Patients Urinary Catheter Date of Insertion: 02/26/25 Urinary Catheter Time of Insertion: 17:43 Data 02/28/25 03:51 02/28/25 03:51 A&P Assessment and plan 1. Acute hypoxic respiratory failure: Acute hypoxemic respiratory failure secondary to acute on chronic congestive systolic heart dysfunction Recent echo showing EF around 15 to 20% the patient is on ASSISTANT COMMUNITY DIRECTOR-D currently better and on room air, hold diuretics for one more day as creatinine improved from 2.9-2.2 re-assess tomorrow resume home medications after reconciliation, plavix, jardiance, metoprolol and hold entresto in the light of KERON. Intake output monitoring Oxygen therapy as per protocol Daily weight base analysis Telemetry monitoring Cardiology consulted for further GDMT 2. Digoxin toxicity: Patient received DigiFab in the ER Digoxin levels around 2 Cardiology consulted and appreciated the recommendations Electrolyte monitoring and correction accordingly especially potassium Continue to monitor for any visual disturbances abdominal pain nausea or vomiting and other signs or symptoms of digoxin toxicity. 3. Acute systolic (congestive) heart failure: Acute on chronic congestive systolic heart dysfunction better today, hold lasix and entresto due to KERON continue BB, plavix, jardiance 4. Cardiac resynchronization therapy defibrillator (ASSISTANT COMMUNITY DIRECTOR-D) in place: Currently stable, continue to monitor Telemetry monitoring 5. Transaminitis: High likelihood of congestive hepatomegaly, trending down hold hepatotoxic medications including any statins Continue monitor liver functions Ultrasound liver showed mild hepatomegaly and cholelithiasis 6. KERON (acute kidney injury): High likelihood of congestive nephropathy hold diuresis at the moment for another 1 day as per scientist immunology gentle hydration for 24 hours with 30ml/hr fluids and monitor 7. Benign essential HTN: blood pressure at the optimum range Continue to monitor 8. Paroxysmal atrial fibrillation: Continue amiodarone 200 mg daily Metoprolol 25 twice daily Apixaban 5 mg twice daily for anticoagulation Telemetry monitoring 9. Mixed hyperlipidemia: Patient liver enzymes are increased and in the previous visit he statins were held since his liver enzymes were raised Continue to hold and to resume after liver functions normalize PDMP PDMP Reviewed: Not Reviewed Attestations Medical Necessity Statement*: patient will stay more than 2 midnights requiring GDMT for acute on chronic congestive heart failure due to systolic dysfunction,KERON, telemetry monitoring under cardiac stepdown unit Time Spent in Patient Care: 16 - 35 minutes (>than 50% of time spent in counselling and/or direct pt care on unit). Other Attestations: Patient condition has been discussed at length with the patient/family, I have independently reviewed the chart labs imaging/diagnostics/EKG. the goals of care and code status with the patient/family/NOK/legal accounts payable representative, and documented accordingly. I have reconciled the medications after confirmation/comorbidities/current clinical condition. The management has been done according to the current clinical condition with respect to patient goals of care and based on recommendations/guidelines. The patient/family has been informed about the current condition and further plan of care. Agreed with the plan of care and understood without any language barrier. Every effort was made to ensure accuracy of contact acid plant operator. Any obvious errors or omissions should be clarified with the author of the document. Coding Level of Care Code 70334 Diagnoses Acute hypoxic respiratory failure J96.01 Digoxin toxicity T46.0X1A Encounter type: initial encounter Injury intent: accidental or unintentional Acute systolic (congestive) heart failure I50.21 Cardiac resynchronization therapy defibrillator (ASSISTANT COMMUNITY DIRECTOR-D) in place Z95.810 Transaminitis R74.01 KERON (acute kidney injury) N17.9 Benign essential HTN I10 Paroxysmal atrial fibrillation I48.0 Mixed hyperlipidemia E78.2 Hyperlipidemia type: mixed hyperlipidemia
[2025-02-28] MEDS: HYDROcodone-acetaminophen 5-325 mg Tablet 1 TAB PO (23:52)
[2025-03-01] VITALS (9 sets, daily range): BP systolic 111–137; BP diastolic 70–88; PULSE 61–74; RESP 13–20; TEMP 36.7; O2SAT 95–97
[2025-03-01] MEDS: DAPAGLIFLOZIN 5 MG TABLET PO (05:29)
--- NOTE | 2025-03-01 08:40 | PM.PN ---
Subjective Subjective: Patient doing well today. He was doing well however was complaining of mild tiredness. The patient has severe hypokalemia therefore potassium correction was provided. Overall he is improving, and kidney functions are also getting better. The patient is kept on diuresis during his hospital stay but considering his renal functions, cautious approach is being taken Vitals/I&O/Wt Last Vital Signs Temp 98.1 F 03/01/25 08:00 Pulse 64 03/01/25 08:00 Resp 20 H 03/01/25 08:00 BP 133/84 03/01/25 08:00 Pulse Ox 95 03/01/25 08:00 O2 Del Method CPAP 03/01/25 04:00 O2 Flow Rate 2 02/26/25 16:30 FiO2 21 03/01/25 07:44 02/28/25 03/01/25 03/01/25 22:59 06:59 14:59 Intake Total 1709 / 2189 240 / 2429 Output Total 1225 / 1225 200 / 1425 Balance 484 / 964 40 / 1004 Weight last 48 hrs Weight 100.879 kg Weight 100.425 kg Physical Exam Narrative: General: Alert and oriented, lying comfortably without any distress, speaking in full sentences. HEENT: Normocephalic, atraumatic, grossly unremarkable exam Cardio: normal rate rhythm, normal S1-S2 without any murmurs, rubs, or gallops and JVD normal Respiratory: normal vascular breathing on auscultation with bibasal fine crepts without any wheezes. GI: Abdomen soft, nontender, nondistended, normoactive bowel sounds present all 4 quadrants, Neuro: intact cranial nerves motor and sensory and cerebellar/coordination function without any focal neurological deficit Behavior: Appropriate and cooperative Extremities: Adequate palpable pulses, bilateral trace edema better than yesterday. Urinary Catheter Management: Freeman: Cath Placed During This Visit: yes Reason for Continuing Indwelling Catheter: Accurate Measurement of Urinary Output in Critically Ill Patients Urinary Catheter Date of Insertion: 02/26/25 Urinary Catheter Time of Insertion: 17:43 Data 03/01/25 09:44 03/01/25 09:44 A&P Assessment and plan 1. Acute hypoxic respiratory failure: Acute hypoxemic respiratory failure secondary to acute on chronic congestive systolic heart dysfunction Recent echo showing EF around 15 to 20% the patient is on MEDICAL ADMINISTRATIVE TECHNICIAN-D currently better and on room air, hold diuretics for another day and to follow tomorrow Continue home medication plavix, jardiance, metoprolol and hold entresto in the light of KERON. Can consider starting diuretics from tomorrow if renal functions are improving and based on clinical assessment? Intake output monitoring Oxygen therapy as per protocol Daily weight base analysis Telemetry monitoring Cardiology consulted for further GDMT 2. KERON (acute kidney injury): Multifactorial including congestive nephropathy versus overdiuresis and other factors could be made Hold hydration and diuretics, reassess tomorrow Kidney function improving continue to monitor 3. Transaminitis: High likelihood of congestive hepatomegaly, trending down hold hepatotoxic medications including any statins Continue monitor liver functions Ultrasound liver showed mild hepatomegaly and cholelithiasis 4. Acute systolic (congestive) heart failure: Acute on chronic congestive systolic heart dysfunction better today, hold lasix and entresto due to KERON continue BB, plavix, jardiance 5. Cardiac resynchronization therapy defibrillator (MEDICAL ADMINISTRATIVE TECHNICIAN-D) in place: Currently stable, continue to monitor Telemetry monitoring 6. Digoxin toxicity: Patient received DigiFab in the ER Digoxin levels around 2 Cardiology consulted and appreciated the recommendations Electrolyte monitoring and correction accordingly especially potassium Continue to monitor for any visual disturbances abdominal pain nausea or vomiting and other signs or symptoms of digoxin toxicity. 7. Benign essential HTN: blood pressure at the optimum range Continue to monitor 8. Paroxysmal atrial fibrillation: Continue amiodarone 200 mg daily Metoprolol 25 twice daily Apixaban 5 mg twice daily for anticoagulation Telemetry monitoring 9. Mixed hyperlipidemia: Patient liver enzymes are increased and in the previous visit he statins were held since his liver enzymes were raised Continue to hold and to resume after liver functions normalize PDMP PDMP Reviewed: Not Reviewed Attestations Medical Necessity Statement*: patient will stay more than 2 midnights requiring GDMT for acute on chronic congestive heart failure due to systolic dysfunction,EKRON, telemetry monitoring under cardiac stepdown unit Time Spent in Patient Care: 16 - 35 minutes (>than 50% of time spent in counselling and/or direct pt care on unit). Other Attestations: Patient condition has been discussed at length with the patient/family, I have independently reviewed the chart labs imaging/diagnostics/EKG. the goals of care and code status with the patient/family/NOK/legal commissary representative, and documented accordingly. I have reconciled the medications after confirmation/comorbidities/current clinical condition. The management has been done according to the current clinical condition with respect to patient goals of care and based on recommendations/guidelines. The patient/family has been informed about the current condition and further plan of care. Agreed with the plan of care and understood without any language barrier. Every effort was made to ensure accuracy of ceo & board director. Any obvious errors or omissions should be clarified with the author of the document. Coding Level of Care Code 70551 Diagnoses Acute hypoxic respiratory failure J96.01 KERON (acute kidney injury) N17.9 Transaminitis R74.01 Acute systolic (congestive) heart failure I50.21 Cardiac resynchronization therapy defibrillator (MEDICAL ADMINISTRATIVE TECHNICIAN-D) in place Z95.810 Digoxin toxicity T46.0X1A Encounter type: initial encounter Injury intent: accidental or unintentional Benign essential HTN I10 Paroxysmal atrial fibrillation I48.0 Mixed hyperlipidemia E78.2 Hyperlipidemia type: mixed hyperlipidemia
--- NOTE | 2025-03-01 09:49 | PC.CHAP ---
Pastoral Care Encounter/Spiritual Assessment Type of Contact [] Declined director talent acquisition visit [] Patient/Family/Request visit [] Outpatient visit [] Follow-up visit [] Physician referral [] Code/Alert [] Routine visit [] Staff referral [] Actively dying [] Patient sleeping [] Family support [] [] Out of room [] Palliative care [] [x] Receiving care in room [] Pre-surgical visit [] Trauma [] Long length of stay [] ICU visit [] Other: Relational/Emotional Strength [] Patient feels connected with others/family/visitors/staff [] Distress [] Loneliness/isolation [] Abandonment Spirituality of Patient [] Person of Mayuri [] Attends Temple of their Mayuri [] Believes in Prayer [] Reads Bible or Mu-Ism materials [] There are Spiritual issues to be addressed Transaction Coordinator Interventions [] Prayer [] Active listening [] Non-anxious presence [] Spiritual/emotional support [] Crisis/trauma care [] Spiritual counseling [] Bereavement support [] Provided bereavement packet [] Provided Bible/devotional materials [] Provided toy/stuffed animal, coloring book to patient or family member [] Provided Communion [] Anointing/[place] [] Salvation [] Completed spiritual assessment [] Other: Impact on Illness or Injury [] Angry [] Fearful [] Anxious [] Often cries [] Exhaustion [] Unable to work [] Unable to attend pentecostalism [] Unable to walk/stand [] Unable to read [] Unable to drive [] Unable to eat/drink [] Unable to sleep [] Unable to be with family [] Patient intubated [] Other: Summary Time spent with patient
[2025-03-01 10:02] LABS: Hematocrit 42.7 % (37-53); Hemoglobin 13.00 g/dL (11.27-16.99); Mean Corpuscular HGB Conc 30.4 g/dL (30-55); Mean Corpuscular Hemoglobin 26.7 pg (27-33); Mean Corpuscular Volume 87.7 fl (82-101); Nucleated Red Blood Cells % 0 %; Platelet Count 207 10^3/cmm (157-399); Red Blood Count 4.87 10^6/uL (3.85-5.65); White Blood Count 3.89 10^3/uL (3.29-11.43)
[2025-03-01 10:19] LABS: Alanine Aminotransferase 105 U/L (0-41); Albumin Level 3.0 g/dL (3.5-5.2); Alkaline Phosphatase 170 U/L (40-130); Anion Gap 14.9 (5-19); Aspartate Amino Transferase 50 U/L (0-40); Blood Urea Nitrogen 45 mg/dL (8-23); Calcium 8.6 mg/dL (8.5-10.5); Carbon Dioxide 28 mmol/L (22-29); Chloride 98 mmol/L (98-107); Globulin 2.3 g/dL (1.3-4.6); Glucose 166 mg/dL (65-115); Osmolality Calculated 301 mOsm/kg (285-295); Sodium 138 mmol/L (136-145); Total Protein 5.3 g/dL (6.6-8.7)
[2025-03-01 10:46] LABS: Potassium 2.9 mmol/L (3.5-5.1)
[2025-03-01] MEDS: potassium phosphate (mEq K) 20 MEQ in sodium chloride 0.9% (100 ml) 100 ML 26.14 MEQ IV (11:35)
--- NOTE | 2025-03-01 15:09 | P.PN_ITS ---
<Statement entered by Edinson Resendiz M.D - 03/05/25 12:14> Patient was cared for in conjunction with an advanced practice practitioner.? I reviewed the chart and all pertinent data including imaging, telemetry, and laboratory results.? I discussed the patient in detail with the advanced practice practitioner.? Please see? their documentation for progress note, testing results and agreed upon plan of care for the patient. Subjective 2 Subjective: Patient doing ok this AM. Creatinine continues to improve. Still holding diuretics. Vitals/I&O/Wt Last Vital Signs Temp 98.1 F 03/01/25 08:00 Pulse 71 03/01/25 12:00 Resp 20 H 03/01/25 12:00 BP 111/87 03/01/25 12:00 Pulse Ox 97 03/01/25 12:00 O2 Del Method CPAP 03/01/25 04:00 O2 Flow Rate 2 02/26/25 16:30 FiO2 21 03/01/25 07:44 03/01/25 03/01/25 03/01/25 06:59 14:59 22:59 Intake Total 240 / 2429 971 / 971 Output Total 200 / 1425 Balance 40 / 1004 971 / 971 Weight last 48 hrs Weight 222 lb 6.4 oz Weight 221 lb 6.4 oz Physical Exam 2 Narrative: General: No apparent distress HENMT: normoceophalic Muskuloskeletal: Full ROM Respiratory: Normal respiratory effort, clear to auscultation bilaterally throughout all lung cotton, no use of accessory muscles Cardio: No JVD, irregularly irregular rate and rhythm, S1 S2 normal, no murmurs, peripheral pulses 2+ radial palpated bilaterally Extremities: Full ROM, normal, normal capillary refill, no cyanosis, trace edema bilateral lower extremities Neuro: Alert and oriented x4 Psych: Affect normal Skin: Left upper chest with incision site covered with Steri-Strips from TEXTILE CHEMIST-D device placement clean dry intact no swelling no signs or symptoms of infection Urinary Catheter Management: Freeman: Cath Placed During This Visit: yes Reason for Continuing Indwelling Catheter: Accurate Measurement of Urinary Output in Critically Ill Patients Urinary Catheter Date of Insertion: 02/26/25 Urinary Catheter Time of Insertion: 17:43 Data 03/01/25 09:44 03/01/25 09:44 A&P Assessment and plan 1. Acute exacerbation of CHF (congestive heart failure): 2. Benign essential HTN: 3. Systolic CHF with reduced left ventricular function, NYHA class 2: 4. Paroxysmal atrial fibrillation: 5. CAD (coronary artery disease): 6. Cardiac resynchronization therapy defibrillator (TEXTILE CHEMIST-D) in place: Plan: For acute systolic CHF exacerbation, creatinine has improved significantly. Creat. is 2.1 slightly improved from yesterday. This is close to patient's baseline. Currently wearing CPAP. Discussed case with Dr. Lancaster. Plans are to hold diuretics one more day then restart them tomorrow. Strict I&O. Monitor Renal function. Continue Metoprolol, Plavix, Amiodarone, and Eliquis. Hold Entresto for KERON. PDMP PDMP Reviewed: Not Reviewed Attestations 2 Medical Necessity Statement*: Deferred to primary Coding Level of Care Code Acute Code for Chg Fwd Diagnoses Acute exacerbation of CHF (congestive heart failure) I50.9 Benign essential HTN I10 Systolic CHF with reduced left ventricular function, NYHA class 2 I50.20 Paroxysmal atrial fibrillation I48.0 CAD (coronary artery disease) I25.10 Cardiac resynchronization therapy defibrillator (TEXTILE CHEMIST-D) in place Z95.810
[2025-03-01 16:37] LABS: Anion Gap 17.8 (5-19); Blood Urea Nitrogen 48 mg/dL (8-23); Calcium 8.7 mg/dL (8.5-10.5); Carbon Dioxide 26 mmol/L (22-29); Chloride 98 mmol/L (98-107); Glucose 100 mg/dL (65-115); Osmolality Calculated 299 mOsm/kg (285-295); Potassium 3.8 mmol/L (3.5-5.1); Sodium 138 mmol/L (136-145)
[2025-03-01] MEDS: morphine 4 mg/mL SDV 1 mL 2 MG IVP (21:59)
[2025-03-02] VITALS: BP 138/92; PULSE 67; RESP 20; TEMP 36.6; O2SAT 94
[2025-03-02] MEDS: HYDROcodone-acetaminophen 5-325 mg Tablet 1 TAB PO ×2 (00:07→09:49)
[2025-03-02 04:00] VITALS: BP 122/84; PULSE 68; RESP 17; TEMP 36.8; O2SAT 91
[2025-03-02 05:02] LABS: Hematocrit 48.6 % (37-53); Hemoglobin 14.40 g/dL (11.27-16.99); Mean Corpuscular HGB Conc 29.6 g/dL (30-55); Mean Corpuscular Hemoglobin 26.7 pg (27-33); Mean Corpuscular Volume 90.2 fl (82-101); Nucleated Red Blood Cells % 0 %; Platelet Count 236 10^3/cmm (157-399); Red Blood Count 5.39 10^6/uL (3.85-5.65); White Blood Count 4.47 10^3/uL (3.29-11.43)
[2025-03-02] MEDS: DAPAGLIFLOZIN 5 MG TABLET PO (05:20)
[2025-03-02 05:33] LABS: Alanine Aminotransferase 105 U/L (0-41); Albumin Level 3.6 g/dL (3.5-5.2); Alkaline Phosphatase 196 U/L (40-130); Blood Urea Nitrogen 43 mg/dL (8-23); Calcium 9.1 mg/dL (8.5-10.5); Carbon Dioxide 28 mmol/L (22-29); Chloride 98 mmol/L (98-107); Globulin 2.3 g/dL (1.3-4.6); Glucose 112 mg/dL (65-115); Osmolality Calculated 300 mOsm/kg (285-295); Sodium 139 mmol/L (136-145); Total Protein 5.9 g/dL (6.6-8.7)
[2025-03-02 05:38] LABS: Anion Gap 17.5 (5-19); Potassium 4.5 mmol/L (3.5-5.1)
[2025-03-02 05:39] LABS: Aspartate Amino Transferase 50 U/L (0-40)
[2025-03-02 08:00] VITALS: BP 127/89; PULSE 67; RESP 17; TEMP 36.6; O2SAT 96
--- NOTE | 2025-03-02 09:48 | USR_ITS ---
PROCEDURE INFORMATION: Exam: US Duplex Lower Extremity Veins, Bilateral Exam date and time: 03/02/2025 10:08 AM Age: 65 years old Clinical indication: Swelling (edema) of limb; Lower extremity, bilateral; Additional info: Swelling on legs TECHNIQUE: Imaging protocol: Real-time duplex ultrasound of the bilateral extremities with 2-D dominguez scale, color Doppler flow and spectral waveform analysis including responses to compression and other maneuvers (when performed) with image documentation. Complete exam focused on the lower extremity veins. COMPARISON: US renal BI* [id number] 02/27/2025 6:34 PM FINDINGS: Right deep veins: Unremarkable. The common femoral, femoral, proximal profunda femoral and popliteal veins are patent without thrombus. Normal Doppler waveforms. Normal compressibility and/or augmentation response. Left deep veins: Unremarkable. The common femoral, femoral, proximal profunda femoral and popliteal veins are patent without thrombus. Normal Doppler waveforms. Normal compressibility and/or augmentation response. Superficial veins: Greater saphenous veins at the saphenofemoral junctions are patent bilaterally without thrombus. Soft tissues: Unremarkable. US/[place] [id number] IMPRESSION: No evidence of deep vein thrombosis.
[2025-03-02] MEDS: FUROsemide 10 mg/mL SDV 4mL 40 MG IVP (09:49)
[2025-03-02 12:00] VITALS: BP 118/81; PULSE 70; RESP 12; TEMP 36.7; O2SAT 95
--- NOTE | 2025-03-02 13:40 | PM.PN ---
Subjective Subjective: Patient seen in the morning, doing much better. Kidney function is improving with creatinine trending down Patient had bilateral leg swellings, however having right-sided leg edema relatively more than the left, for duplex ultrasound Started Lasix daily 40 mg IV from today and to monitor tomorrow Vitals/I&O/Wt Last Vital Signs Temp 98.0 F 03/02/25 12:00 Pulse 70 03/02/25 12:00 Resp 12 03/02/25 12:00 BP 118/81 03/02/25 12:00 Pulse Ox 95 03/02/25 12:00 O2 Del Method Room Air 03/02/25 04:00 O2 Flow Rate 2 02/26/25 16:30 FiO2 21 03/01/25 07:44 03/01/25 03/02/25 03/02/25 22:59 06:59 14:59 Intake Total 584.5455 / 1555.5455 300 / 1855.5455 594 / 594 Output Total 750 / 750 200 / 950 Balance -165.4545 / 805.5455 100 / 905.5455 594 / 594 Weight last 48 hrs Weight 100.425 kg Weight 100.879 kg Physical Exam Narrative: General: Alert and oriented, lying comfortably without any distress, speaking in full sentences. HEENT: Normocephalic, atraumatic, grossly unremarkable exam Cardio: normal rate rhythm, normal S1-S2 without any murmurs, rubs, or gallops and JVD normal Respiratory: normal vascular breathing on auscultation with bibasal fine crepts without any wheezes. Relatively better than yesterday GI: Abdomen soft, nontender, nondistended, normoactive bowel sounds present all 4 quadrants, Neuro: intact cranial nerves motor and sensory and cerebellar/coordination function without any focal neurological deficit Behavior: Appropriate and cooperative Extremities: Adequate palpable pulses, bilateral trace edema with right leg having more edema than the left, Urinary Catheter Management: Freeman: Cath Placed During This Visit: yes Reason for Continuing Indwelling Catheter: Accurate Measurement of Urinary Output in Critically Ill Patients Urinary Catheter Date of Insertion: 02/26/25 Urinary Catheter Time of Insertion: 17:43 Data 03/02/25 04:23 03/02/25 04:23 A&P Assessment and plan 1. Acute hypoxic respiratory failure: Acute hypoxemic respiratory failure secondary to acute on chronic congestive systolic heart dysfunction Recent echo showing EF around 15 to 20% the patient is on WATER POLLUTION SCIENTIST-D. Looks euvolemic Continue home medication plavix, jardiance, metoprolol and hold entresto in the light of KERON. Start 40 mg IV Lasix daily to see the response tomorrow with renal functions monitoring Intake output monitoring Oxygen therapy as per protocol Daily weight base analysis Telemetry monitoring Cardiology consulted for further GDMT 2. KERON (acute kidney injury): Multifactorial including congestive nephropathy versus overdiuresis and other factors could be made Currently improving, 40 mg IV Lasix daily and see the response tomorrow Kidney function improving continue to monitor 3. Transaminitis: High likelihood of congestive hepatomegaly, trending down hold hepatotoxic medications including any statins Continue monitor liver functions Ultrasound liver showed mild hepatomegaly and cholelithiasis 4. Acute systolic (congestive) heart failure: Acute on chronic congestive systolic heart dysfunction better today, kidney function improving, IV Lasix 40 mg daily continue BB, plavix, jardiance 5. Cardiac resynchronization therapy defibrillator (WATER POLLUTION SCIENTIST-D) in place: Currently stable, continue to monitor Telemetry monitoring 6. Digoxin toxicity: Patient received DigiFab in the ER Digoxin levels around 2 Cardiology consulted and appreciated the recommendations Electrolyte monitoring and correction accordingly especially potassium Continue to monitor for any visual disturbances abdominal pain nausea or vomiting and other signs or symptoms of digoxin toxicity. 7. Benign essential HTN: blood pressure at the optimum range Continue to monitor 8. Paroxysmal atrial fibrillation: Continue amiodarone 200 mg daily Metoprolol 25 twice daily Apixaban 5 mg twice daily for anticoagulation Telemetry monitoring 9. Mixed hyperlipidemia: Patient liver enzymes are increased and in the previous visit he statins were held since his liver enzymes were raised Continue to hold and to resume after liver functions normalize 10. Bilateral leg edema: Ultrasound duplex venous to rule out any DVT since the patient right leg is more swollen than the left? PDMP PDMP Reviewed: Not Reviewed Attestations Medical Necessity Statement*: Patient will stay over midnight for the management of his fluid overload, KERON requiring IV therapy and GDMT through cardiology as well Time Spent in Patient Care: 16 - 35 minutes (>than 50% of time spent in counselling and/or direct pt care on unit). Other Attestations: Patient condition has been discussed at length with the patient/family, I have independently reviewed the chart labs imaging/diagnostics/EKG. the goals of care and code status with the patient/family/NOK/legal footwear sales representative, and documented accordingly. I have reconciled the medications after confirmation/comorbidities/current clinical condition. The management has been done according to the current clinical condition with respect to patient goals of care and based on recommendations/guidelines. The patient/family has been informed about the current condition and further plan of care. Agreed with the plan of care and understood without any language barrier. Every effort was made to ensure accuracy of wrapping machine helper. Any obvious errors or omissions should be clarified with the author of the document. Coding Level of Care Code 48666 Diagnoses Acute hypoxic respiratory failure J96.01 KERON (acute kidney injury) N17.9 Transaminitis R74.01 Acute systolic (congestive) heart failure I50.21 Cardiac resynchronization therapy defibrillator (WATER POLLUTION SCIENTIST-D) in place Z95.810 Digoxin toxicity T46.0X1A Encounter type: initial encounter Injury intent: accidental or unintentional Benign essential HTN I10 Paroxysmal atrial fibrillation I48.0 Mixed hyperlipidemia E78.2 Hyperlipidemia type: mixed hyperlipidemia Bilateral leg edema R60.0
[2025-03-02 16:00] VITALS: BP 119/85; PULSE 70; RESP 16; O2SAT 94
[2025-03-02 20:00] VITALS: BP 106/84; PULSE 71; RESP 16; TEMP 36.4; O2SAT 97
[2025-03-03] VITALS (7 sets, daily range): BP systolic 104–141; BP diastolic 73–92; PULSE 62–74; RESP 13–30; TEMP 36.3–37.2; O2SAT 96–98
[2025-03-03 04:05] LABS: Hematocrit 50.2 % (37-53); Hemoglobin 15.20 g/dL (11.27-16.99); Mean Corpuscular HGB Conc 30.3 g/dL (30-55); Mean Corpuscular Hemoglobin 26.4 pg (27-33); Mean Corpuscular Volume 87.3 fl (82-101); Nucleated Red Blood Cells % 0 %; Platelet Count 229 10^3/cmm (157-399); Red Blood Count 5.75 10^6/uL (3.85-5.65); White Blood Count 5.35 10^3/uL (3.29-11.43)
[2025-03-03 04:27] LABS: Alanine Aminotransferase 93 U/L (0-41); Albumin Level 3.6 g/dL (3.5-5.2); Alkaline Phosphatase 213 U/L (40-130); Anion Gap 17.7 (5-19); Aspartate Amino Transferase 41 U/L (0-40); Blood Urea Nitrogen 45 mg/dL (8-23); Calcium 9.5 mg/dL (8.5-10.5); Carbon Dioxide 28 mmol/L (22-29); Chloride 97 mmol/L (98-107); Globulin 3.1 g/dL (1.3-4.6); Glucose 126 mg/dL (65-115); Magnesium 2.6 mg/dL (1.7-2.3); Osmolality Calculated 299 mOsm/kg (285-295); Potassium 4.7 mmol/L (3.5-5.1); Sodium 138 mmol/L (136-145); Total Protein 6.7 g/dL (6.6-8.7)
[2025-03-03] MEDS: HYDROcodone-acetaminophen 5-325 mg Tablet 1 TAB PO ×2 (05:21→22:51)
[2025-03-03] MEDS: DAPAGLIFLOZIN 5 MG TABLET PO (05:21)
[2025-03-03] MEDS: FUROsemide 10 mg/mL SDV 4mL 40 MG IVP (07:58)
--- NOTE | 2025-03-03 20:12 | P.PN_ITS ---
Subjective 2 Subjective: Patient currently euvolemic, objective parameters still showing KERON and increased bilirubin Patient undergoing cautious diuresis since he presented with volume overload and aggressive diuresis can need to KERON on CKD Vitals/I&O/Wt Last Vital Signs Temp 97.8 F 03/03/25 16:00 Pulse 73 03/03/25 16:00 Resp 30 H 03/03/25 16:00 BP 123/82 03/03/25 16:00 Pulse Ox 98 03/03/25 16:00 O2 Del Method Room Air 03/03/25 04:00 O2 Flow Rate 2 02/26/25 16:30 FiO2 21 03/03/25 02:00 03/03/25 03/03/25 03/03/25 06:59 14:59 22:59 Intake Total 240 / 240 Output Total 450 / 950 750 / 750 150 / 900 Balance -450 / 4 -510 / -510 -150 / -660 Weight last 48 hrs Weight 101.786 kg Weight 100.425 kg Physical Exam 2 Narrative: General: Alert and oriented, lying comfortably without any distress, speaking in full sentences. HEENT: Normocephalic, atraumatic, grossly unremarkable exam Cardio: normal rate rhythm, normal S1-S2 without any murmurs, rubs, or gallops and JVD normal Respiratory: normal vascular breathing on auscultation with bibasal fine crepts without any wheezes. Relatively better than yesterday GI: Abdomen soft, nontender, nondistended, normoactive bowel sounds present all 4 quadrants, Neuro: intact cranial nerves motor and sensory and cerebellar/coordination function without any focal neurological deficit Behavior: Appropriate and cooperative Extremities: Adequate palpable pulses, bilateral pedal trace edema more or less the same as yesterday, having mild skin lesions due to itchiness which are related to pruritus Urinary Catheter Management: Freeman: Cath Placed During This Visit: yes Reason for Continuing Indwelling Catheter: Accurate Measurement of Urinary Output in Critically Ill Patients Urinary Catheter Date of Insertion: 02/26/25 Urinary Catheter Time of Insertion: 17:43 Data 03/03/25 03:51 03/03/25 03:51 A&P Assessment and plan 1. Acute hypoxic respiratory failure: Acute hypoxemic respiratory failure secondary to acute on chronic congestive systolic heart dysfunction Recent echo showing EF around 15 to 20% the patient is on SCIENTIFIC INFORMATICS LEADER-D. Looks euvolemic today as above Continue home medication plavix, jardiance, metoprolol and hold entresto in the light of KERON. Patient creatinine went up from 2-2.1, therefore hold diuresis and continue to monitor Intake output monitoring Oxygen therapy as per protocol Daily weight base analysis Telemetry monitoring Cardiology consulted for further GDMT 2. KERON (acute kidney injury): Multifactorial including congestive nephropathy versus overdiuresis and other factors could be made Hold dialysis since his creatinine went up If the kidney functions are not improving then consider nephrology input Kidney function improving continue to monitor 3. Transaminitis: High likelihood of congestive hepatomegaly, trending down T. bili is on the higher side however expected to trend down in the next coming days, patient asymptomatic hold hepatotoxic medications including any statins Continue monitor liver functions Ultrasound liver showed mild hepatomegaly and cholelithiasis 4. Acute systolic (congestive) heart failure: Acute on chronic congestive systolic heart dysfunction Hold diuretics in the light of worsening renal dysfunction Continue beta-blockers and Plavix 5. Cardiac resynchronization therapy defibrillator (SCIENTIFIC INFORMATICS LEADER-D) in place: Currently stable, continue to monitor Telemetry monitoring 6. Digoxin toxicity: Patient received DigiFab in the ER Digoxin levels around 2 Cardiology consulted and appreciated the recommendations Electrolyte monitoring and correction accordingly especially potassium Continue to monitor for any visual disturbances abdominal pain nausea or vomiting and other signs or symptoms of digoxin toxicity. 7. Benign essential HTN: blood pressure at the optimum range Continue to monitor 8. Paroxysmal atrial fibrillation: Continue amiodarone 200 mg daily Metoprolol 25 twice daily Apixaban 5 mg twice daily for anticoagulation Telemetry monitoring 9. Mixed hyperlipidemia: Patient liver enzymes are increased and in the previous visit he statins were held since his liver enzymes were raised Continue to hold and to resume after liver functions normalize 10. Bilateral leg edema: Ultrasound duplex venous ruled out DVT Continue to monitor likely related to acute on chronic congestive heart failure PDMP PDMP Reviewed: Not Reviewed Attestations 2 Medical Necessity Statement*: Patient will stay more than 2 midnights requiring cardiology input for GDMT, management of his KERON, transaminitis and further optimization of rest of his comorbidities Time Spent in Patient Care: 16 - 35 minutes (>than 50% of time sp ent in counselling and/or direct pt care on unit) . Other Attestations: Patient condition has been discussed at length with the patient/family, I have independently reviewed the chart labs imaging/diagnostics/EKG. the goals of care and code status with the patient/family/NOK/legal surgical device sales representative, and documented accordingly. I have reconciled the medications after confirmation/comorbidities/current clinical condition. The management has been done according to the current clinical condition with respect to patient goals of care and based on recommendations/guidelines. The patient/family has been informed about the current condition and further plan of care. Agreed with the plan of care and understood without any language barrier. Every effort was made to ensure accuracy of college sports coach. Any obvious errors or omissions should be clarified with the author of the document. Coding Level of Care Code 64278 Diagnoses Acute hypoxic respiratory failure J96.01 KERON (acute kidney injury) N17.9 Transaminitis R74.01 Acute systolic (congestive) heart failure I50.21 Cardiac resynchronization therapy defibrillator (SCIENTIFIC INFORMATICS LEADER-D) in place Z95.810 Digoxin toxicity T46.0X1A Encounter type: initial encounter Injury intent: accidental or unintentional Benign essential HTN I10 Paroxysmal atrial fibrillation I48.0 Mixed hyperlipidemia E78.2 Hyperlipidemia type: mixed hyperlipidemia Bilateral leg edema R60.0
[2025-03-03] MEDS: MELATONIN 3 MG TABLET PO (22:51)
[2025-03-04] VITALS (7 sets, daily range): BP systolic 119–133; BP diastolic 83–89; PULSE 62–67; RESP 16–20; TEMP 35.9–37.3; O2SAT 90–96
[2025-03-04] MEDS: morphine 4 mg/mL SDV 1 mL 2 MG IVP (00:45)
[2025-03-04 04:40] LABS: Hematocrit 48.2 % (37-53); Hemoglobin 14.10 g/dL (11.27-16.99); Mean Corpuscular HGB Conc 29.3 g/dL (30-55); Mean Corpuscular Hemoglobin 27.1 pg (27-33); Mean Corpuscular Volume 92.7 fl (82-101); Nucleated Red Blood Cells % 0 %; Platelet Count 177 10^3/cmm (157-399); Red Blood Count 5.20 10^6/uL (3.85-5.65); White Blood Count 4.02 10^3/uL (3.29-11.43)
[2025-03-04 05:01] LABS: Alanine Aminotransferase 61 U/L (0-41); Albumin Level 2.9 g/dL (3.5-5.2); Alkaline Phosphatase 165 U/L (40-130); Anion Gap 17.0 (5-19); Aspartate Amino Transferase 31 U/L (0-40); Blood Urea Nitrogen 46 mg/dL (8-23); Calcium 8.7 mg/dL (8.5-10.5); Carbon Dioxide 25 mmol/L (22-29); Chloride 99 mmol/L (98-107); Globulin 2.0 g/dL (1.3-4.6); Glucose 110 mg/dL (65-115); Magnesium 2.5 mg/dL (1.7-2.3); Osmolality Calculated 297 mOsm/kg (285-295); Potassium 4.0 mmol/L (3.5-5.1); Sodium 137 mmol/L (136-145); Total Protein 4.9 g/dL (6.6-8.7)
[2025-03-04] MEDS: DAPAGLIFLOZIN 5 MG TABLET PO (06:11)
--- NOTE | 2025-03-04 16:18 | P.DS_ITS ---
Discharge Providers Date of Admission: 02/26/25 15:45 Date of Discharge: March 04, 2025 Attending Provider at Admission: Ayesha Lancaster MD Attending Provider at Discharge: Ayesha Lancaster MD Primary Care Provider: Francis Elmore Diagnoses at Discharge Discharge Diagnosis 1. Acute hypoxic respiratory failure: 2. KERON (acute kidney injury): 3. Transaminitis: 4. Acute systolic (congestive) heart failure: 5. Cardiac resynchronization therapy defibrillator (ORNAMENTAL METAL FABRICATOR APPRENTICE-D) in place: 6. Digoxin toxicity: 7. Benign essential HTN: 8. Paroxysmal atrial fibrillation: 9. Mixed hyperlipidemia: 10. Bilateral leg edema: Reason for Visit Reason for Visit: High BP Feet Swelling SOB N Brief History: As per the previous retrospective notes and the admitting physician: Colin Moya is a pleasant 65-year-old gentleman with A-fib on amiodarone, Eliquis, ischemic cardiomyopathy, AICD PM, HTN, and EF of 15-20%, presents to the emergency room with worsening shortness of breath, early satiety, and nausea, lower extremity edema that gradually started over the course of 5-6 days. the patient endorsed tiredness, exertional SOB and lower leg edema. he later on started to feel nauseated and had mild vomiting containing only water. therefore he decided to come to the hospital. there was chest tightness as well but no dizziness, cold sweats or any presyncope or syncope. he reported having flu like symptoms but no fevers or chills. no sick contact or recent travel, he had took his flu shot. no abd pain or any diarrhea. He states compliance to his other medications Entresto, metoprolol, Jardiance, Plavix. 10/08/24 [facility] (last stent) 1. 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 IVUS ofhigh OM/ Ramus artery, no significant disease seen. 2. 1st Diagonal to 1st Diagonal was treated with a Balloon, and Balloon. 3. 1st Diagonal to 1st Diagonal was treated with a Drug Eluting Stent. Hospital Course Hospital Course During the patient hospital stay, he was admitted as a case of acute on chronic congestive heart failure. Cardiology was taken on board. There was also concern for digoxin toxicity therefore DigiFab were given in the ER and the patient remained stable. He was also having mild KERON which was secondary to likely overdiuresis. His diuretics were continued and later on held based on kidney functions. Medications were also adjusted according to kidney functions and therefore digoxin, Entresto and Jardiance and statins were held in the light of KERON and also transaminitis which later improved with maintenance of euvolemia with medical therapy. He was euvolemic. And also was provided CPAP at night. He has bilateral leg edema which improved. And during his hospital stay ultrasound of the lower extremities was also done to rule out any DVT because of concerns of right leg being more swollen than the left however it was negative and he remained stable throughout his hospital stay. There was discussion about LVAD at some point but considering patient old age and reduced cardiac reserve, it carries high risk therefore patient was kept on medical management to be followed as outpatient with the cardiology. Patient was provided with medications that were were reconciled after confirmation and according to patient comorbidities and appropriate follow-ups and referrals were provided at the time of discharge. patient understanding/establishing the stability of the current condition was considered during discharge with all the risk and benefits thoroughly explained. Patient condition has been discussed at length with the patient/family, I have independently reviewed the chart labs imaging/diagnostics/EKG. the goals of care and code status with the patient/family/NOK/legal customer service representative teacher, and documented accordingly. The management has been done according to the current clinical condition with respect to patient goals of care and based on recommendations/guidelines. The patient/family has been informed about the current condition and further plan of care. Agreed with the plan of care and understood without any language barrier. Every effort was made to ensure accuracy of medical biller coder. Any obvious errors or omissions should be clarified with the author of the document. Physical Exam Narrative: General: Alert and oriented, lying comfortably without any distress, speaking in full sentences, seen wearing the CPAP while he was sleeping in the morning.. HEENT: Normocephalic, atraumatic, grossly unremarkable exam Cardio: normal rate rhythm, normal S1-S2 without any murmurs, rubs, or gallops and JVD normal Respiratory: normal vascular breathing on auscultation with bibasal fine crepts without any wheezes. Relatively better than yesterday GI: Abdomen soft, nontender, nondistended, normoactive bowel sounds present all 4 quadrants, Neuro: intact cranial nerves motor and sensory and cerebellar/coordination function without any focal neurological deficit Behavior: Appropriate and cooperative Extremities: Adequate palpable pulses, bilateral pedal edema that is better than yesterday, having mild skin lesions due to itchiness which are related to pruritus Urinary Catheter Management: Freeman: Cath Placed During This Visit: yes Reason for Continuing Indwelling Catheter: Accurate Measurement of Urinary Output in Critically Ill Patients Urinary Catheter Date of Insertion: 02/26/25 Urinary Catheter Time of Insertion: 17:43 Discharge Data Studies Completed and Pending Completed Studies During Hospitalization Category Date Time Status CT head wo con* [id number] Stat Cat Scan 02/26/25 14:49 Completed XR chest 1V portable [id number] Stat Exams 02/26/25 13:06 [place] [id number] Routine Ultrasound 03/02/25 09:48 Completed [place] liver [id number] Routine Ultrasound 02/27/25 19:49 Completed US renal BI* [id number] Routine Ultrasound 02/27/25 14:57 Completed Radiology Impressions Chest X-Ray 02/26/25 13:06 IMPRESSION: 1. Small bilateral pleural effusions. Probably unchanged accounting for slight change in positioning. 2. Mild interstitial pulmonary edema. Possible CHF. Lung aeration is unchanged. 3. Cardiomegaly. Head CT 02/26/25 14:49 IMPRESSION: No acute intracranial abnormality. Renal Ultrasound 02/27/25 14:57 IMPRESSION: Normal renal ultrasound. Liver Ultrasound 02/27/25 19:49 IMPRESSION: 1. Cholelithiasis without evidence for acute cholecystitis. 2. Mild hepatomegaly. 3. No ascites. 4. Very small RIGHT pleural effusion. Venous Duplex 03/02/25 09:48 IMPRESSION: No evidence of deep vein thrombosis. Laboratory Results WBC 4.02 10^3/uL (3.29-11.43) 03/04/25 04:06 RBC 5.20 10^6/uL (3.85-5.65) 03/04/25 04:06 Hgb 14.10 g/dL (11.27-16.99) 03/04/25 04:06 Hct 48.2 % (37-53) 03/04/25 04:06 MCV 92.7 fl (82-101) 03/04/25 04:06 MCH 27.1 pg (27-33) 03/04/25 04:06 MCHC 29.3 g/dL (30-55) L 03/04/25 04:06 RDW 20.0 % (12.1-15.1) H 12/27/25 04:06 Plt Count 177 10^3/cmm (157-399) 03/04/25 04:06 MPV 10.4 fL (7.4-10.4) 03/04/25 04:06 Neut % (Auto) 63.7 % 03/04/25 04:06 Lymph % (Auto) 19.9 % 03/04/25 04:06 [place] % (Auto) 13.2 % 03/04/25 04:06 Eos % (Auto) 1.5 % 03/04/25 04:06 Baso % (Auto) 1.0 % 03/04/25 04:06 Neut # (Auto) 2.56 10^3/uL (1.8-7.7) 03/04/25 04:06 Lymph # (Auto) 0.8 10^3/uL (0.8-4.8) 03/04/25 04:06 [place] # (Auto) 0.5 10^3/uL (0.2-0.9) 03/04/25 04:06 Eos # (Auto) 0.1 10^3/uL (0.0-0.8) 03/04/25 04:06 Baso # (Auto) 0.0 10^3/uL (0.0-0.1) 03/04/25 04:06 Nucleated RBC % (auto) 0 % 03/04/25 04:06 Nucleated RBCs # 0.0 /100WBC 03/04/25 04:06 Sodium 137 mmol/L (136-145) 03/04/25 04:06 Potassium 4.0 mmol/L (3.5-5.1) 03/04/25 04:06 Chloride 99 mmol/L (98-107) 03/04/25 04:06 Carbon Dioxide 25 mmol/L (22-29) 03/04/25 04:06 Anion Gap 17.0 (5-19) 03/04/25 04:06 BUN 46 mg/dL (8-23) H 03/04/25 04:06 Creatinine 2.1 mg/dL (0.7-1.2) H 03/04/25 04:06 GFR Calculation 32.0 mL/min (90-130) L 03/04/25 04:06 Glucose 110 mg/dL (65-115) 03/04/25 04:06 Calculated Osmolality 297 mOsm/kg (285-295) H 03/04/25 04:06 Calcium 8.7 mg/dL (8.5-10.5) 03/04/25 04:06 Magnesium 2.5 mg/dL (1.7-2.3) H 03/04/25 04:06 Total Bilirubin 1.9 mg/dL (0.15-1.2) H 03/04/25 04:06 AST 31 U/L (0-40) 03/04/25 04:06 ALT 61 U/L (0-41) H 03/04/25 04:06 Alkaline Phosphatase 165 U/L (40-130) H 03/04/25 04:06 Troponin T Baseline 40 ng/L (0-15) H 02/26/25 14:15 Troponin T 60 Minute 40.57 ng/L (0-15) H 02/26/25 15:07 Delta Troponin T 0.57 ABS# (0-10) 02/26/25 15:07 Troponin T Hi Sens 6Hr 34.46 ng/L (0-15) H 02/26/25 20:14 Troponin T Hi Sens 6Hr Delta -5.54 ng/L (0-12) L 02/26/25 20:14 NT-Pro-B Natriuret Pep 73972 pg/mL (0-125) H 02/26/25 14:15 Total Protein 4.9 g/dL (6.6-8.7) L 03/04/25 04:06 Albumin 2.9 g/dL (3.5-5.2) L 03/04/25 04:06 Globulin 2.0 g/dL (1.3-4.6) 03/04/25 04:06 TSH 8.70 uIU/mL (0.27-4.20) H 02/26/25 14:15 Digoxin 2.0 ng/mL (0.6-1.2) H 02/26/25 14:15 Influenza A (PCR) Negative (Negative) 02/26/25 14:53 Influenza Type B (PCR) Negative (Negative) 02/26/25 14:53 RSV (PCR) Negative (Negative) 02/26/25 14:53 SARS-CoV-2 (PCR) Negative (Negative) 02/26/25 14:53 Vitals Last Vital Signs Temp 97.6 F 03/04/25 14:21 Pulse 63 03/04/25 14:21 Resp 16 03/04/25 14:21 BP 133/86 03/04/25 14:21 Pulse Ox 96 03/04/25 14:21 O2 Del Method Room Air 03/03/25 04:00 O2 Flow Rate 2 02/26/25 16:30 FiO2 21 03/04/25 04:07 Discharge Plan Discharge Patient Disposition: Home Condition: Stable Prescriptions: New pantoprazole 40 mg Tablet,Delayed Release (Dr/Ec) 40 mg PO DAILY 60 Days Qty: 60 0RF Continued duloxetine 60 mg capsule,delayed release(DR/EC) 60 mg PO DAILY metoprolol tartrate 25 mg tablet 25 mg PO BID@0900,2100 Qty: 180 3RF bumetanide 1 mg tablet See Rx Instructions .ROUTE .COMPLEX Qty: 90 0RF Dose Instruction: TAKE 2 TABLETS BY MOUTH ONCE DAILY IN THE MORNING THEN 1 ONCE DAILY AT 2PM Rx Instructions: TAKE 2 TABLETS BY MOUTH ONCE DAILY IN THE MORNING THEN 1 ONCE DAILY AT 2PM amiodarone [Pacerone] 200 mg tablet 200 mg PO DAILY Qty: 90 3RF cetirizine [Zyrtec] 10 mg Tablet 10 mg PO QPM Eliquis 5 mg tablet 5 mg PO BID Qty: 180 2RF Dose Instruction: Take 1 tablet by mouth twice daily Rx Instructions: Take 1 tablet by mouth twice daily docusate sodium 100 mg capsule 100 mg PO BID clopidogrel 75 mg Tablet 75 mg PO DAILY 90 Days Qty: 90 3RF Repatha SureClick 140 mg/mL pen injector 140 mg SUBCUT Q14D Discontinued digoxin 125 mcg (0.125 mg) tablet 125 mcg PO DAILY Qty: 90 3RF Jardiance 10 mg tablet 10 mg PO DAILY Qty: 90 3RF potassium chloride 10 mEq tablet extended release See Rx Instructions .ROUTE .COMPLEX Qty: 90 3RF Dose Instruction: Take 1 tablet by mouth once daily Rx Instructions: Take 1 tablet by mouth once daily sacubitril-valsartan 24-26 mg tablet 0.5 tab PO BID Lathe Operator OK for DC: Cardiology Discharge Order = DC NOW: Discharge Order (Routine); Ordered 03/04/25 Ordered By: Ayesha Lancaster Referrals: Varghese Lujan MD [Physician, Nephrology] Referral Note: new base line CKD? for further management and healthcare maintenance Fidelia Condon NP [Nurse Practitioner, Cardiology] - 2 weeks Referral Note: patients entresto, jardiance and digoxin is held, to follow up for further continuation vs holding vs discontinuing as outpatient. [facility] will call you Thursday to set up an appointment to be seen. If you do not hear from them by Thursday, please call them. Francis Elmore [Primary Care Provider, [facility]] - 03/03/25 8:00 am Discharge Diet: Cardiac and Low Salt Discharge Activity: Resume usual activity Patient Instructions: Pantoprazole (By mouth), Opioid Safety, Patient Portal & Jorge L Instructions Discharge Attestations Time Spent in Discharge Care*: greater than 30 min Specific Discharge Activities: educating patient, educating and/or supporting family/caregiver, discussing with pcp/other providers, discussing with wrapper caser/social workers/dc planners, documenting/other paperwork and evaluating patient/reviewing data Status at Discharge: Cognitive status at discharge: cognitively intact , Behavioral status at discharge: cooperative , Functional status at discharge: independent ambulation , Overall status at discharge: patient is progressing back to baseline Quality Metrics Clinical Quality Measures [ No reported AMI, CVA or VTE this stay] Coding Level of Care Code 60626 Diagnoses Acute hypoxic respiratory failure J96.01 KERON (acute kidney injury) N17.9 Transaminitis R74.01 Acute systolic (congestive) heart failure I50.21 Cardiac resynchronization therapy defibrillator (ORNAMENTAL METAL FABRICATOR APPRENTICE-D) in place Z95.810 Digoxin toxicity T46.0X1A Encounter type: initial encounter Injury intent: accidental or unintentional Benign essential HTN I10 Paroxysmal atrial fibrillation I48.0 Mixed hyperlipidemia E78.2 Hyperlipidemia type: mixed hyperlipidemia Bilateral leg edema R60.0
== END 2025-03-04 14:30 | disposition home or self-care (01) | DRG 291 ==
LOC: ER 15:35 → CSU 16:02
PROVIDERS: Emergency Medicine; Admitting Provider Student in an Organized Health Care Education/Training Program; Emergency Provider Physician Assistant; PCP Family Medicine; Visit Provider Student in an Organized Health Care Education/Training Program
DX: I13.0 Hypertensive heart and chronic kidney disease with heart failure and stage 1 through stage 4 chronic kidney disease, or unspecified chronic kidney disease (principal); I50.23 Acute on chronic systolic (congestive) heart failure; J96.01 Acute respiratory failure with hypoxia; N17.9 Acute kidney failure, unspecified; R74.01 Elevation of levels of liver transaminase levels; I48.0 Paroxysmal atrial fibrillation; E78.2 Mixed hyperlipidemia; T46.0X5A Adverse effect of cardiac-stimulant glycosides and drugs of similar action, initial encounter; Y92.239 Unspecified place in hospital as the place of occurrence of the external cause; Z79.01 Long term (current) use of anticoagulants; Z95.810 Presence of automatic (implantable) cardiac defibrillator; Z82.49 Family history of ischemic heart disease and other diseases of the circulatory system; G47.33 Obstructive sleep apnea (adult) (pediatric); I25.10 Atherosclerotic heart disease of native coronary artery without angina pectoris; E87.6 Hypokalemia; R60.0 Localized edema; N18.9 Chronic kidney disease, unspecified
CPT/HCPCS: 36415; 51702; 70450; 71045; 76705; 76770; 80048; 80053; 80162; 83735; 83880; 84443; 84484; 85025; 87637; 93005; 93970; 94660; 96365; 96372; 96375; 99285; J1162; J1644; J1938; J2270; J7120; J9999